=== PATIENT | male | born 1950 | race Caucasian/White ===

== ENCOUNTER 2016-07-16 06:28 | Inpatient (IN) | payer SELFPAY ==
[2016-07-16] MEDS ORDERED: Bupivacaine 0.5%/EPINEPHrine 1:200,000 50 ML MDV ONE (06:42)
[2016-07-16] MEDS ORDERED: Meropenem 500 MG SDV ONE (06:42)
[2016-07-16] MEDS ORDERED: Propofol 200 MG/20 ML SDV ONE (07:26)
[2016-07-16] MEDS ORDERED: Dexamethasone 4 MG/ML SDV ONE (07:26)
[2016-07-16] MEDS ORDERED: Neostigmine Methylsulfate 1 MG/ML 5 ML Syringe ONE (07:26)
[2016-07-16] MEDS ORDERED: Ondansetron 4 MG/2 ML SDV ONE (07:26)
[2016-07-16] MEDS ORDERED: Succinylcholine/Normal Saline 200 MG/10 ML Syringe ONE (07:26)
[2016-07-16] MEDS ORDERED: Rocuronium 50 MG/5 ML Vial ONE (07:26)
[2016-07-16] MEDS ORDERED: fentaNYL 250 MCG/5 ML SDV ONE ×2 (07:26→09:20)
[2016-07-16] MEDS ORDERED: Dextrose 5%-Lactated Ringers 1,000 ML IV SCH (07:30)
[2016-07-16] MEDS ORDERED: Clindamycin Phosphate 900 MG in Sodium Chloride 0.9% 100 ML IV ONE (07:30)
[2016-07-16] MEDS ORDERED: Naloxone 0.4 MG/ML SDV IVPUSH PRN (07:31)
[2016-07-16] MEDS ORDERED: HYDROmorphone/Normal Saline 15 MG/30 ML PCA IV PRN (07:31)
[2016-07-16] MEDS ORDERED: Naloxone 0.4 MG/ML SDV IV PRN (07:37)
[2016-07-16] MEDS ORDERED: Lactated Ringers 1,000 ML ONE (09:16)
[2016-07-16] MEDS ORDERED: Nitroglycerin 0.4 MG Tab.SL SL PRN (11:11)
[2016-07-16] MEDS: ceFAZolin 2 GM in Sodium Chloride 0.9% 50 ML IV SCH ×2 (14:28→21:41)
[2016-07-16] MEDS: busPIRone 5 MG Tab PO SCH (16:48)
[2016-07-16] MEDS: Dextrose 5%-Lactated Ringers 1,000 ML IV SCH (18:24)
[2016-07-16] MEDS: Tamsulosin 0.4 MG Cap.ER PO SCH (20:47)
[2016-07-16] MEDS: Ondansetron 4 MG/2 ML SDV IVPUSH PRN (20:50)
[2016-07-16] MEDS ORDERED: Lidocaine 2% Jelly 10 ML Urojet MUCMEM ONE (21:14)
[2016-07-17] MEDS: ceFAZolin 2 GM in Sodium Chloride 0.9% 50 ML IV SCH (05:08)
[2016-07-17] MEDS ORDERED: Tamsulosin 0.4 MG Cap.ER PO ONE (09:00)
[2016-07-17] MEDS: Dextrose 5%-Lactated Ringers 1,000 ML IV SCH ×2 (09:00→22:05)
[2016-07-17] MEDS: busPIRone 5 MG Tab PO SCH ×2 (10:17→16:33)
[2016-07-17] MEDS: Losartan 50 MG Tab PO SCH (10:18)
[2016-07-17] MEDS: fentaNYL 25 MCG/HR Transdermal Patch TRDERM SCH (10:20)
[2016-07-17] MEDS: FENTANYL PATCH CHECK TOP SCH (10:25)
[2016-07-17] MEDS: Ondansetron 4 MG/2 ML SDV IVPUSH PRN (10:56)
[2016-07-17] MEDS: Acetaminophen/oxyCODONE 325-5 MG Tab PO PRN ×3 (13:08→20:33)
--- NOTE | 2016-07-17 14:04 | PN ---
DATE OF SERVICE: 07/17/2016 The patient has been afebrile with stable vital signs. He did retain urine last night and had a Villeda catheter put in. He will have some additional Flomax today and Villeda catheter out tomorrow. Otherwise, pain control appears to be little bit marginal, add fentanyl patch. Otherwise, maximize activity and work with pulmonary toilet. Sg Youngblood MD /[id number]
[2016-07-17] MEDS: Tamsulosin 0.4 MG Cap.ER PO SCH (20:33)
[2016-07-17] MEDS ORDERED: Tamsulosin 0.4 MG Cap.ER PO SCH (21:00)
[2016-07-18] MEDS: Acetaminophen/oxyCODONE 325-5 MG Tab PO PRN ×6 (01:55→23:46)
[2016-07-18] MEDS: Dextrose 5%-Lactated Ringers 1,000 ML IV SCH (04:26)
[2016-07-18] MEDS ORDERED: Sodium Chloride 0.9% 10 ML Syringe IV PRN (07:40)
[2016-07-18] MEDS: Bisacodyl 5 MG Tab PO SCH ×2 (08:27→21:15)
[2016-07-18] MEDS: busPIRone 5 MG Tab PO SCH ×2 (08:27→16:20)
[2016-07-18] MEDS: Losartan 50 MG Tab PO SCH (08:28)
[2016-07-18] MEDS ORDERED: Magnesium Citrate Solution 296 ML Bottle PO ONE (09:00)
[2016-07-18] MEDS: FENTANYL PATCH CHECK TOP SCH (09:28)
[2016-07-18] MEDS: Tamsulosin 0.4 MG Cap.ER PO SCH (21:16)
[2016-07-19] MEDS: Acetaminophen/oxyCODONE 325-5 MG Tab PO PRN ×4 (05:21→19:34)
[2016-07-19] MEDS ORDERED: Magnesium Hydroxide 400 MG/5 ML Susp 30 ML Cup PO ONE (08:45)
[2016-07-19] MEDS: Bisacodyl 10 MG Supp RECTAL PRN ×2 (09:17→17:31)
--- NOTE | 2016-07-19 09:18 | CR ---
Upright abdomen The patient is 3 days postoperative laparoscopic hernia repair. There is moderate free air underlyin g the hemidiaphragms. There is a gaseous appearance throughout the large and small bowel. Impression: 1. Pneumoperitoneum consistent with postoperative state. 2. Evidence for possible mild ileus.
[2016-07-19] MEDS: Bacitracin Oint 28.35 GM Tube TOP SCH ×3 (09:19→21:17)
[2016-07-19] MEDS: busPIRone 5 MG Tab PO SCH ×2 (10:27→16:14)
[2016-07-19] MEDS: Bisacodyl 5 MG Tab PO SCH ×2 (10:28→21:18)
[2016-07-19] MEDS: Losartan 50 MG Tab PO SCH (10:28)
[2016-07-19] MEDS: FENTANYL PATCH CHECK TOP SCH (10:29)
--- NOTE | 2016-07-19 11:06 | PN ---
DATE OF SERVICE: 07/19/2016 SUBJECTIVE: Srinivas reports distention, inability to have a bowel movement, but he is passing a little bit of gas. He reports distention and increased amount of pain. He did retain urine, but was able to void yesterday and did have most of the bottle of magnesium citrate but still unable to have a bowel movement. REVIEW OF SYSTEMS: Remainder of review of systems negative for any pertinent positives and negatives. OBJECTIVE: GENERAL: Srinivas Lofton is a 65-year-old male. He is alert and orientated. Looks like he is not feeling well. VITAL SIGNS: TPR is 99.3, 99, 20, blood pressure 151/86. HEENT: Negative. NECK: Supple. HEART: Regular rate and rhythm. LUNGS: Clear. ABDOMEN: Distended, quite tight. He has an increased amount of pain. EXTREMITIES: Without peripheral edema. ASSESSMENT: 1. Abdominal distention, postoperatively, looks like early ileus. 2. Laparoscopy with lysis of adhesions, 70 minutes repair of recurrent incisional hernia with mesh. Removal of mesh and placement of Vicryl mesh for recurrent incarcerated incisional hernia extensive intraabdominal adhesions on 07/16/2016. PLAN: 1. Check abdominal x-ray flat and upright. 2. Bacitracin to tape fay 3 times a day. 3. Milk of magnesia 30 mL one time. 4. Dulcolax suppository b.i.d. p.r.n. Encourage walking. We will evaluate p.r.n. or in a.m. Lidia Rao PA-C /[id number]
--- NOTE | 2016-07-19 11:30 | PN ---
DATE OF SERVICE: 07/18/2016 The patient has been afebrile with stable vital signs. He had his Villeda catheter removed today, and hopefully he will be able to void today. He is also fairly distended, and we will try to get his bowels going. He is tolerating oral pain medication, in addition to the fentanyl patch. We will have him get in the shower today, and he may be ready for discharge home tomorrow. Sg Youngblood MD /[id number]
[2016-07-19] MEDS ORDERED: Dextrose 5%-Lactated Ringers 1,000 ML IV SCH (14:30)
[2016-07-19] MEDS ORDERED: Acetaminophen 1,000 MG in Premix Bag 1 BAG IV PRN (16:00)
[2016-07-19] MEDS ORDERED: Ketorolac 60 MG/2 ML SDV IM ONE (17:03)
[2016-07-19] MEDS: hydrOXYzine HCl 50 MG/ML SDV IM PRN (17:31)
[2016-07-19] MEDS: Tamsulosin 0.4 MG Cap.ER PO SCH (21:18)
[2016-07-20] MEDS: Acetaminophen/oxyCODONE 325-5 MG Tab PO PRN (03:34)
[2016-07-20] MEDS: hydrOXYzine HCl 50 MG/ML SDV IM PRN ×2 (04:27→14:41)
[2016-07-20] MEDS ORDERED: Acetaminophen 1,000 MG in Premix Bag 1 BAG IV ONE (07:18)
[2016-07-20] MEDS ORDERED: Naloxone 0.4 MG/ML SDV IV PRN ×2 (07:26→21:19)
[2016-07-20] MEDS ORDERED: HYDROmorphone/Normal Saline 15 MG/30 ML PCA IV PRN ×2 (07:30→21:17)
[2016-07-20] MEDS ORDERED: LORazepam 2 MG/ML MDV IVPUSH PRN (08:28)
[2016-07-20] MEDS ORDERED: Lactated Ringers 1,000 ML IV SCH ×3 (08:30→20:45)
--- NOTE | 2016-07-20 08:56 | CR ---
2 view abdomen Comparison: Previous day. Findings: There is decreased free air within the abdomen. There is a large amount of stool in the ri ght colon. There is mild gaseous distention of the bowel. Impression: 1. Interval decrease of pneumoperitoneum. 2. Probable postoperative ileus.
[2016-07-20] MEDS ORDERED: Levofloxacin/Dextrose 5%-Water 500 MG in Premix Bag 1 BAG IV SCH (09:00)
[2016-07-20] MEDS: Bacitracin Oint 28.35 GM Tube TOP SCH ×2 (09:20→13:58)
[2016-07-20] MEDS: Losartan 50 MG Tab PO SCH (09:21)
[2016-07-20] MEDS: busPIRone 5 MG Tab PO SCH ×2 (09:21→17:57)
[2016-07-20] MEDS: Bisacodyl 5 MG Tab PO SCH (09:22)
[2016-07-20] MEDS: fentaNYL 25 MCG/HR Transdermal Patch TRDERM SCH (09:24)
[2016-07-20] MEDS: FENTANYL PATCH CHECK TOP SCH (09:27)
[2016-07-20] MEDS ORDERED: Polyethylene Glycol 3350 Powder 119 GM Bottle PO ONE (10:00)
--- NOTE | 2016-07-20 11:19 | CR ---
Portable chest The patient is post left laparoscopic hernia repair. There is free air underlying the hemidiaphragms . On the upright view of the chest there does not appear to be significant change in the amount of f ree air compared to the upright abdomen of the previous day. There are shallow lung lungs. The heart and vascular structures are unchanged. Impression: 1. Postoperative pneumoperitoneum. 2. Markedly diminished lung volumes.
[2016-07-20] MEDS: Albuterol 0.083% 2.5 MG/3 ML Neb Soln NEB PRN ×2 (12:34→16:13)
[2016-07-20] MEDS: Acetaminophen 1,000 MG in Premix Bag 1 BAG IV SCH ×3 (13:58→22:20)
[2016-07-20] MEDS ORDERED: Diatrizoate Meglumine/Diatrizoate Sodium 37% 120 ML Bottle SCH (14:15)
[2016-07-20] MEDS ORDERED: Meperidine PF 100 MG/ML Syringe IM ONE (16:00)
[2016-07-20] MEDS ORDERED: Lactated Ringers 1,000 ML IV ONE (16:19)
[2016-07-20] MEDS ORDERED: Succinylcholine/Normal Saline 200 MG/10 ML Syringe ONE (16:43)
[2016-07-20] MEDS ORDERED: Neostigmine Methylsulfate 1 MG/ML 5 ML Syringe ONE (16:43)
[2016-07-20] MEDS ORDERED: Rocuronium 50 MG/5 ML Vial ONE ×2 (16:43→18:23)
[2016-07-20] MEDS ORDERED: Ondansetron 4 MG/2 ML SDV ONE (16:43)
[2016-07-20] MEDS ORDERED: Propofol 200 MG/20 ML SDV ONE (16:43)
[2016-07-20] MEDS ORDERED: Dexamethasone 4 MG/ML SDV ONE (16:43)
[2016-07-20] MEDS ORDERED: fentaNYL 250 MCG/5 ML SDV ONE ×2 (16:44→18:23)
[2016-07-20] MEDS ORDERED: Midazolam 1 MG/ML 2 ML SDV ONE (16:45)
[2016-07-20] MEDS ORDERED: Meropenem 500 MG SDV ONE (17:24)
[2016-07-20] MEDS ORDERED: Lactated Ringers 1,000 ML ONE ×2 (18:25→18:26)
--- NOTE | 2016-07-20 19:15 | PCM.CONS ---
H&P History of Present Illness - General Date of Service: 07/20/16 Admit Problem/Dx: Admission Diagnosis/Problem Admission Diagnosis/Problem Hernia repair Source of Information: Patient, Old records, Provider, RN notes reviewed History Limitations: Reports: No limitations - History of Present Illness Initial Comments - Free Text/Narative: This patient is a 65-year-old gentleman who I been asked to see by Dr. Youngblood for further suggestions concerning evaluation and management of fever and tachycardia. He underwent incisional hernia repair with mesh 4 days ago. He's had intermittent difficulty with severe abdominal pain. This morning was noted to have significant temperature elevation 203 as well as tachycardia and intermittent borderline blood pressures. He has been transferred to the intensive care unit and given vigorous IV fluid resuscitation. Empiric IV antibiotics have been started after blood cultures were obtained including levofloxacin and meropenem. Chest x-ray showed no obvious infiltrate, white blood cell count is within normal range but CRP is significantly elevated. Lactic acid level mildly elevated prior to fluid resuscitation, blood gases showed no evidence of significant metabolic acidosis. CT scan of the chest abdomen and pelvis was obtained which showed evidence of a marked amount of intra-abdominal air consistent with a perforation. He is been reevaluated by Dr. Youngblood and taken back to the operating room for exploratory laparotomy. Abdominal Pain Score (Numeric/FACES): 8 - Related Data Allergies/Adverse Reactions: Allergies Allergy/AdvReac Type Severity Reaction Status Date / Time Penicillins Allergy Hives Verified 07/16/16 06:46 Home Medications: Home Meds busPIRone [Buspar] 15 mg PO QAM 05/03/15 [History] Losartan Potassium [Cozaar] 50 mg PO DAILY 07/13/16 [History] Cider Vinegar [Apple Cider Vinegar] 1,000 mg PO BID 07/16/16 [History] Ergocalciferol (Vitamin D2) [Vitamin D] 400 unit PO DAILY 07/16/16 [History] [place]-3S/DHA/Epa/Fish Oil [[place]-3 Fish Oil 1,000 mg Sfgl] 1 tab PO DAILY [History] Prasterone (DHEA)/Calcium Carb [DHEA] 1 tab PO DAILY 07/16/16 [History] Turmeric Root Extract [Turmeric] 500 mg PO DAILY 07/16/16 [History] Vitamin B Complex 1 tab PO DAILY 07/16/16 [History] busPIRone [Buspar] 7.5 mg PO QPM 07/16/16 [History] Past Medical History HEENT History: Reports: Impaired vision, Other (see below) Other HEENT History: dry eyes, wears glasses Cardiovascular History: Reports: CAD, High cholesterol, Hypertension, Stents Gastrointestinal History: Reports: GERD Musculoskeletal History: Reports: Fracture Psychiatric History: Reports: Anxiety, Depression Endocrine/Metabolic History: Reports: Obesity/BMI 30+ - Infectious Disease History Infectious Disease History: Reports: Chicken pox, Measles, Mumps, Shingles - Past Surgical History HEENT Surgical History: Reports: Other (see below) Other HEENT Surgeries/Procedures: root canal Cardiovascular Surgical History: Reports: Coronary artery stent, Other (see below) Other Cardiovascular Surgeries/Procedures: October stents GI Surgical History: Reports: Colonoscopy, Hernia repair/other Social & Family History - Family History Family Medical History: Noncontributory - Tobacco Use Smoking Status *Q: Never Smoker Second Hand Smoke Exposure: No - Caffeine Use Caffeine Use: Reports: None - Recreational Drug Use Recreational Drug Use: No H&P Review of Systems - Review of Systems: Review Of Systems: See Below General: Reports: fever, chills, weakness, diaphoresis, decreased appetite HEENT: Reports: no symptoms Pulmonary: Reports: shortness of breath. Denies: wheezing, pleuritic chest pain , cough, sputum, hemoptysis Cardiovascular: Reports: dyspnea on exertion. Denies: chest pain, palpitations , orthopnea, PND, edema, lightheadedness Gastrointestinal: Reports: Abdominal pain, Decreased appetite, Distension, Flatus. Denies: Black stool, Bloody stool, Difficulty swallowing, Nausea, Vomiting Genitourinary: Reports: no symptoms Musculoskeletal: Reports: no symptoms Skin: Reports: no symptoms Psychiatric: Reports: no symptoms Neurological: Reports: no symptoms Hematologic/Lymphatic: Reports: no symptoms Immunologic: Reports: no symptoms Exam - Exam Exam: See Below - Vital Signs Vital Signs: Last Vital Signs Temp 96.8 F 07/20/16 16:00 Pulse 130 H 07/20/16 16:00 Resp 29 H 07/20/16 16:00 BP 90/69 07/20/16 16:00 Pulse Ox 92 L 07/20/16 16:00 Weight: 253 lb 4.802 oz - Exam Quality Assessment: urinary catheter, DVT prophylaxis General: alert, oriented, cooperative, severe distress HEENT: Conjunctiva clear, EOMI, Hearing intact, Nares patent, Normal nasal septum, Posterior pharynx clear, Pupils equal, Pupils reactive Neck: supple, trachea midline, +2 carotid pulse wo bruit Lungs: Clear to auscultation, Normal respiratory effort Cardiovascular: normal S1, normal S2, tachycardia. No: irregular rhythm, bradycardia, systolic murmur, diastolic murmur Abdomen: distention, guarding, rebound, tenderness, hypoactive bowel sounds Extremities: edema Skin: warm, dry, intact Neurological: cranial nerves intact, strength equal bilateral, normal speech, normal tone, sensation intact. No: focal deficit Neuro Extensive - Mental Status: alert, oriented x3, normal mood/affect, normal cognition, memory intact - Patient Data Lab Results last 24 hrs: Laboratory Results - last 24 hr 07/20/16 07/20/16 07/20/16 Range/Units 07:45 07:45 07:45 WBC 6.2 (4.5-11.0) K/uL RBC 5.26 (4.30-5.90) M/uL Hgb 15.7 H (12.0-15.0) g/dL Hct 46.0 (40.0-54.0) % MCV 88 (80-98) fL MCH 30 (27-31) pg MCHC 34 (32-36) % Plt Count 247 (150-400) K/uL Neut % (Auto) 85 H (36-66) % Lymph % (Auto) 6 L (24-44) % [place] % (Auto) 8 H (2-6) % Eos % (Auto) 0 L (2-4) % Baso % (Auto) 0 (0-1) % Puncture Site ABG pH (7.350-7.450) ABG pCO2 (35.0-42.0) mmHg ABG pO2 (75.0-100.0) mmHg ABG HCO3 (22.0-26.0) mmol/L ABG Total CO2 (23.0-27.0) mmol/L ABG O2 Saturation (95.0-98.0) % ABG O2 Content (15.0-23.0) %vol ABG Base Excess mm/L ABG Hemoglobin (13.5-18.0) g/dL ABG Oxyhemoglobin % ABG Carboxyhemoglobin (0.0-1.6) % ABG Methemoglobin % Wilber Test O2 Delivery Device Oxygen Flow Rate L Sodium 136 L (140-148) mmol/L Potassium 4.0 (3.6-5.2) mmol/L Chloride 101 (100-108) mmol/L Carbon Dioxide 27 (21-32) mmol/L Anion Gap 12.0 (5.0-14.0) mmol/L BUN 26 H D (7-18) mg/dL Creatinine 1.5 H (0.8-1.3) mg/dL Est Cr Clr Drug Dosing 52.17 mL/min Estimated GFR (MDRD) 47 L (>60) Glucose 139 H (74-106) mg/dL Lactic Acid (0.4-2.0) mmol/L Calcium 8.3 L (8.5-10.1) mg/dL Magnesium 2.1 (1.8-2.4) mg/dL Total Bilirubin 1.1 H D (0.2-1.0) mg/dL AST 33 (15-37) U/L ALT 39 (12-78) U/L Alkaline Phosphatase 28 L (46-116) U/L Troponin I < 0.017 (0.000-0.056) ng/mL C-Reactive Protein (0.0-0.3) mg/dL Total Protein 6.9 (6.4-8.2) g/dL Albumin 2.6 L (3.4-5.0) g/dL Globulin 4.3 H (2.3-3.5) g/dL Albumin/Globulin Ratio 0.6 L (1.2-2.2) Urine Color Urine Appearance Urine pH (4.5-8.0) Ur Specific [place] (1.008-1.030) Urine Protein (NEGATIVE) mg/dL Urine Glucose (UA) (NEGATIVE) mg/dL Urine Ketones (NEGATIVE) mg/dL Urine Occult Blood (NEGATIVE) Urine Nitrite (NEGAITVE) Urine Bilirubin (NEGATIVE) Urine Urobilinogen (NORMAL) mg/dL Ur Leukocyte Esterase (NEGATIVE) Urine RBC (0-5) Urine WBC (0-5) Ur Epithelial Cells Amorphous Sediment Urine Bacteria Urine Mucus 07/20/16 07/20/16 07/20/16 Range/Units 07:45 08:21 09:57 WBC (4.5-11.0) K/uL RBC (4.30-5.90) M/uL Hgb (12.0-15.0) g/dL Hct (40.0-54.0) % MCV (80-98) fL MCH (27-31) pg MCHC (32-36) % Plt Count (150-400) K/uL Neut % (Auto) (36-66) % Lymph % (Auto) (24-44) % [place] % (Auto) (2-6) % Eos % (Auto) (2-4) % Baso % (Auto) (0-1) % Puncture Site Lt radial ABG pH 7.432 (7.350-7.450) ABG pCO2 37.0 (35.0-42.0) mmHg ABG pO2 75.7 (75.0-100.0) mmHg ABG HCO3 24.2 (22.0-26.0) mmol/L ABG Total CO2 20.6 L (23.0-27.0) mmol/L ABG O2 Saturation 95.2 (95.0-98.0) % ABG O2 Content 21.0 (15.0-23.0) %vol ABG Base Excess 0.8 mm/L ABG Hemoglobin 16.0 (13.5-18.0) g/dL ABG Oxyhemoglobin 93.5 % ABG Carboxyhemoglobin 1.3 (0.0-1.6) % ABG Methemoglobin 0.5 % Wilber Test Passed O2 Delivery Device Nasal cannula Oxygen Flow Rate 3 L Sodium (140-148) mmol/L Potassium (3.6-5.2) mmol/L Chloride (100-108) mmol/L Carbon Dioxide (21-32) mmol/L Anion Gap (5.0-14.0) mmol/L BUN (7-18) mg/dL Creatinine (0.8-1.3) mg/dL Est Cr Clr Drug Dosing mL/min Estimated GFR (MDRD) (>60) Glucose (74-106) mg/dL Lactic Acid 3.5 H (0.4-2.0) mmol/L Calcium (8.5-10.1) mg/dL Magnesium (1.8-2.4) mg/dL Total Bilirubin (0.2-1.0) mg/dL AST (15-37) U/L ALT (12-78) U/L Alkaline Phosphatase (46-116) U/L Troponin I (0.000-0.056) ng/mL C-Reactive Protein 27.59 H (0.0-0.3) mg/dL Total Protein (6.4-8.2) g/dL Albumin (3.4-5.0) g/dL Globulin (2.3-3.5) g/dL Albumin/Globulin Ratio (1.2-2.2) Urine Color Urine Appearance Urine pH (4.5-8.0) Ur Specific [place] (1.008-1.030) Urine Protein (NEGATIVE) mg/dL Urine Glucose (UA) (NEGATIVE) mg/dL Urine Ketones (NEGATIVE) mg/dL Urine Occult Blood (NEGATIVE) Urine Nitrite (NEGAITVE) Urine Bilirubin (NEGATIVE) Urine Urobilinogen (NORMAL) mg/dL Ur Leukocyte Esterase (NEGATIVE) Urine RBC (0-5) Urine WBC (0-5) Ur Epithelial Cells Amorphous Sediment Urine Bacteria Urine Mucus 07/20/16 Range/Units 14:14 WBC (4.5-11.0) K/uL RBC (4.30-5.90) M/uL Hgb (12.0-15.0) g/dL Hct (40.0-54.0) % MCV (80-98) fL MCH (27-31) pg MCHC (32-36) % Plt Count (150-400) K/uL Neut % (Auto) (36-66) % Lymph % (Auto) (24-44) % [place] % (Auto) (2-6) % Eos % (Auto) (2-4) % Baso % (Auto) (0-1) % Puncture Site ABG pH (7.350-7.450) ABG pCO2 (35.0-42.0) mmHg ABG pO2 (75.0-100.0) mmHg ABG HCO3 (22.0-26.0) mmol/L ABG Total CO2 (23.0-27.0) mmol/L ABG O2 Saturation (95.0-98.0) % ABG O2 Content (15.0-23.0) %vol ABG Base Excess mm/L ABG Hemoglobin (13.5-18.0) g/dL ABG Oxyhemoglobin % ABG Carboxyhemoglobin (0.0-1.6) % ABG Methemoglobin % Wilber Test O2 Delivery Device Oxygen Flow Rate L Sodium (140-148) mmol/L Potassium (3.6-5.2) mmol/L Chloride (100-108) mmol/L Carbon Dioxide (21-32) mmol/L Anion Gap (5.0-14.0) mmol/L BUN (7-18) mg/dL Creatinine (0.8-1.3) mg/dL Est Cr Clr Drug Dosing mL/min Estimated GFR (MDRD) (>60) Glucose (74-106) mg/dL Lactic Acid (0.4-2.0) mmol/L Calcium (8.5-10.1) mg/dL Magnesium (1.8-2.4) mg/dL Total Bilirubin (0.2-1.0) mg/dL AST (15-37) U/L ALT (12-78) U/L Alkaline Phosphatase (46-116) U/L Troponin I (0.000-0.056) ng/mL C-Reactive Protein (0.0-0.3) mg/dL Total Protein (6.4-8.2) g/dL Albumin (3.4-5.0) g/dL Globulin (2.3-3.5) g/dL Albumin/Globulin Ratio (1.2-2.2) Urine Color Yellow Urine Appearance Slightly cloudy Urine pH 5.0 (4.5-8.0) Ur Specific [place] 1.015 (1.008-1.030) Urine Protein Trace (NEGATIVE) mg/dL Urine Glucose (UA) Normal (NEGATIVE) mg/dL Urine Ketones Negative (NEGATIVE) mg/dL Urine Occult Blood Trace (NEGATIVE) Urine Nitrite Negative (NEGAITVE) Urine Bilirubin Small (NEGATIVE) Urine Urobilinogen Normal (NORMAL) mg/dL Ur Leukocyte Esterase Negative (NEGATIVE) Urine RBC 0-5 (0-5) Urine WBC 0-5 (0-5) Ur Epithelial Cells Rare Amorphous Sediment Moderate Urine Bacteria Rare Urine Mucus Moderate Result Diagrams: 07/20/16 07:45 07/20/16 07:45 Boby Results last 24 hrs: Microbiology 07/20/16 18:22 Gram Stain - Final Peritoneal Fluid Consult PN Assessment/Plan Procedures: Procedures ASSAY OF TROPONIN QUANT (08/25/13) CARDIOVASCULAR STRESS TEST (11/07/14) CHEST X-RAY 1 VIEW FRONTAL (08/25/13) COMPLETE CBC W/AUTO DIFF WBC (08/25/13) COMPREHEN METABOLIC PANEL (08/25/13) ELECTROCARDIOGRAM REPORT (08/25/13) ELECTROCARDIOGRAM TRACING (08/25/13) EMERGENCY DEPT VISIT (08/25/13) EMERGENCY DEPT VISIT (08/25/13) HT MUSCLE IMAGE SPECT MULT (11/07/14) INITIAL OBSERVATION CARE (08/25/13) METABOLIC PANEL TOTAL CA (08/25/13) OBSERVATION CARE DISCHARGE (08/25/13) ROUTINE VENIPUNCTURE (08/25/13) THER/PROPH/DIAG INJ IV PUSH (08/25/13) TX/PRO/DX INJ NEW DRUG ADDON (08/25/13) Problem List Initiated/Reviewed/Updated: Yes My Orders last 24 hours: My Active Orders 07/20/16 08:23 EKG 12 Lead [EK] Stat 07/20/16 11:30 Chest Abdomen Pelvis wo Cont [CT] Stat 07/20/16 11:32 RT Aerosol Therapy [RC] ASDIRECTED Albuterol [Proventil Neb Soln] 2.5 mg NEB Q4H PRN 07/20/16 12:00 Meropenem [Merrem] 1 gm Sodium Chloride 0.9% [Normal Saline] 50 ml IV Q8H 07/20/16 15:42 Urinary Catheter Assessment [RC] ASDIRECTED 07/20/16 15:45 Insert Villeda Catheter [Insert Urinary Catheter] [OM.PC] Q24H Plan: ASSESSMENT AND RECOMMENDATIONS SEPSIS SECONDARY TO INTESTINAL PERFORATION-he is been taken back to the operating room by Dr. Youngblood for exploratory laparotomy -Postoperative care per Dr. Youngblood -Blood cultures are pending -Empiric IV antibiotics with meropenem and levofloxacin STATUS POST ABDOMINAL WALL HERNIA REPAIR CORONARY ARTERY DISEASE-no symptoms of chest pain or pressure, EKG showed no acute ST segment changes in troponin level is within normal range Requesting Provider: NINA Date Consult Requested: 07/20/16 Reason for Consult: Fever, tachycardia Patient History Reviewed: Yes Notified Requestor: Yes
[2016-07-20] MEDS ORDERED: Naloxone 0.4 MG/ML SDV ONE (20:00)
[2016-07-20] MEDS ORDERED: Heparin Sodium 5,000 Units/ML Vial ONE (20:53)
[2016-07-20] MEDS ORDERED: Ondansetron 4 MG/2 ML SDV IVPUSH PRN (20:56)
[2016-07-20] MEDS: Dextrose 5%-Lactated Ringers 1,000 ML IV SCH (21:07)
[2016-07-20] MEDS ORDERED: Nitroglycerin 0.4 MG Tab.SL SL PRN (21:10)
[2016-07-20] MEDS ORDERED: fentaNYL 25 MCG/HR Transdermal Patch TRDERM SCH (22:00)
[2016-07-20] MEDS ORDERED: FENTANYL PATCH CHECK TOP SCH (22:00)
[2016-07-20] MEDS: Pantoprazole 40 MG Vial IV SCH (22:17)
[2016-07-20] MEDS: Albuterol/Ipratropium 3.0-0.5 MG/3 ML Neb Soln INH SCH (22:17)
[2016-07-20] MEDS: Meropenem 500 MG in Sodium Chloride 0.9% 50 ML IV SCH (22:18)
[2016-07-21] MEDS: Acetaminophen 1,000 MG in Premix Bag 1 BAG IV SCH ×3 (03:38→17:12)
[2016-07-21] MEDS: Meropenem 500 MG in Sodium Chloride 0.9% 50 ML IV SCH ×3 (05:06→21:01)
[2016-07-21] MEDS ORDERED: Albuterol/Ipratropium 3.0-0.5 MG/3 ML Neb Soln INH PRN (07:24)
[2016-07-21] MEDS: Albuterol/Ipratropium 3.0-0.5 MG/3 ML Neb Soln INH SCH ×4 (07:30→20:12)
[2016-07-21] MEDS: Dextrose 5%-Lactated Ringers 1,000 ML IV SCH ×2 (07:44→18:31)
--- NOTE | 2016-07-21 08:01 | PCM.CONSN ---
- General Info Date of Service: 07/21/16 - Review of Systems General: Reports: weakness. Denies: fever, chills Pulmonary: Reports: no symptoms Cardiovascular: Reports: no symptoms Gastrointestinal: Reports: Abdominal pain. Denies: Flatus, Nausea, Vomiting Systems Review Comment:: This patient has done well since surgery last night, oxygenation has been adequate and he has remained hemodynamically stable with no further significant temperature elevations. The time of surgery was found to have a small bowel perforation as well as a large dilated colon. He underwent partial small bowel resection and resection of a large amount of his colon. - Patient Data Vitals - most recent: Last Vital Signs Temp 97.0 F 07/21/16 07:00 Pulse 105 H 07/21/16 07:52 Resp 14 07/21/16 07:52 BP 112/69 07/21/16 07:52 Pulse Ox 93 L 07/21/16 07:52 Weight - most recent: 253 lb 4.802 oz I&O - last 24 hours: Intake & Output 07/20/16 07/21/16 07/21/16 22:59 06:59 14:59 Intake Total 2885 Output Total 660 571 100 Balance -660 2314 -100 Lab Results last 24 hrs: Laboratory Results - last 24 hr 07/20/16 07/20/16 07/20/16 Range/Units 07:45 07:45 07:45 WBC 6.2 (4.5-11.0) K/uL RBC 5.26 (4.30-5.90) M/uL Hgb 15.7 H (12.0-15.0) g/dL Hct 46.0 (40.0-54.0) % MCV 88 (80-98) fL MCH 30 (27-31) pg MCHC 34 (32-36) % Plt Count 247 (150-400) K/uL Neut % (Auto) 85 H (36-66) % Lymph % (Auto) 6 L (24-44) % [place] % (Auto) 8 H (2-6) % Eos % (Auto) 0 L (2-4) % Baso % (Auto) 0 (0-1) % Puncture Site ABG pH (7.350-7.450) ABG pCO2 (35.0-42.0) mmHg ABG pO2 (75.0-100.0) mmHg ABG HCO3 (22.0-26.0) mmol/L ABG Total CO2 (23.0-27.0) mmol/L ABG O2 Saturation (95.0-98.0) % ABG O2 Content (15.0-23.0) %vol ABG Base Excess mm/L ABG Hemoglobin (13.5-18.0) g/dL ABG Oxyhemoglobin % ABG Carboxyhemoglobin (0.0-1.6) % ABG Methemoglobin % Wilber Test O2 Delivery Device Oxygen Flow Rate L Sodium 136 L (140-148) mmol/L Potassium 4.0 (3.6-5.2) mmol/L Chloride 101 (100-108) mmol/L Carbon Dioxide 27 (21-32) mmol/L Anion Gap 12.0 (5.0-14.0) mmol/L BUN 26 H D (7-18) mg/dL Creatinine 1.5 H (0.8-1.3) mg/dL Est Cr Clr Drug Dosing 52.17 mL/min Estimated GFR (MDRD) 47 L (>60) Glucose 139 H (74-106) mg/dL Lactic Acid (0.4-2.0) mmol/L Calcium 8.3 L (8.5-10.1) mg/dL Phosphorus (2.5-4.9) mg/dL Magnesium 2.1 (1.8-2.4) mg/dL Total Bilirubin 1.1 H D (0.2-1.0) mg/dL AST 33 (15-37) U/L ALT 39 (12-78) U/L Alkaline Phosphatase 28 L (46-116) U/L Troponin I < 0.017 (0.000-0.056) ng/mL C-Reactive Protein (0.0-0.3) mg/dL Total Protein 6.9 (6.4-8.2) g/dL Albumin 2.6 L (3.4-5.0) g/dL Globulin 4.3 H (2.3-3.5) g/dL Albumin/Globulin Ratio 0.6 L (1.2-2.2) Urine Color Urine Appearance Urine pH (4.5-8.0) Ur Specific Moody (1.008-1.030) Urine Protein (NEGATIVE) mg/dL Urine Glucose (UA) (NEGATIVE) mg/dL Urine Ketones (NEGATIVE) mg/dL Urine Occult Blood (NEGATIVE) Urine Nitrite (NEGAITVE) Urine Bilirubin (NEGATIVE) Urine Urobilinogen (NORMAL) mg/dL Ur Leukocyte Esterase (NEGATIVE) Urine RBC (0-5) Urine WBC (0-5) Ur Epithelial Cells Amorphous Sediment Urine Bacteria Urine Mucus 07/20/16 07/20/16 07/20/16 Range/Units 07:45 08:21 09:57 WBC (4.5-11.0) K/uL RBC (4.30-5.90) M/uL Hgb (12.0-15.0) g/dL Hct (40.0-54.0) % MCV (80-98) fL MCH (27-31) pg MCHC (32-36) % Plt Count (150-400) K/uL Neut % (Auto) (36-66) % Lymph % (Auto) (24-44) % [place] % (Auto) (2-6) % Eos % (Auto) (2-4) % Baso % (Auto) (0-1) % Puncture Site Lt radial ABG pH 7.432 (7.350-7.450) ABG pCO2 37.0 (35.0-42.0) mmHg ABG pO2 75.7 (75.0-100.0) mmHg ABG HCO3 24.2 (22.0-26.0) mmol/L ABG Total CO2 20.6 L (23.0-27.0) mmol/L ABG O2 Saturation 95.2 (95.0-98.0) % ABG O2 Content 21.0 (15.0-23.0) %vol ABG Base Excess 0.8 mm/L ABG Hemoglobin 16.0 (13.5-18.0) g/dL ABG Oxyhemoglobin 93.5 % ABG Carboxyhemoglobin 1.3 (0.0-1.6) % ABG Methemoglobin 0.5 % Wilber Test Passed O2 Delivery Device Nasal cannula Oxygen Flow Rate 3 L Sodium (140-148) mmol/L Potassium (3.6-5.2) mmol/L Chloride (100-108) mmol/L Carbon Dioxide (21-32) mmol/L Anion Gap (5.0-14.0) mmol/L BUN (7-18) mg/dL Creatinine (0.8-1.3) mg/dL Est Cr Clr Drug Dosing mL/min Estimated GFR (MDRD) (>60) Glucose (74-106) mg/dL Lactic Acid 3.5 H (0.4-2.0) mmol/L Calcium (8.5-10.1) mg/dL Phosphorus (2.5-4.9) mg/dL Magnesium (1.8-2.4) mg/dL Total Bilirubin (0.2-1.0) mg/dL AST (15-37) U/L ALT (12-78) U/L Alkaline Phosphatase (46-116) U/L Troponin I (0.000-0.056) ng/mL C-Reactive Protein 27.59 H (0.0-0.3) mg/dL Total Protein (6.4-8.2) g/dL Albumin (3.4-5.0) g/dL Globulin (2.3-3.5) g/dL Albumin/Globulin Ratio (1.2-2.2) Urine Color Urine Appearance Urine pH (4.5-8.0) Ur Specific Moody (1.008-1.030) Urine Protein (NEGATIVE) mg/dL Urine Glucose (UA) (NEGATIVE) mg/dL Urine Ketones (NEGATIVE) mg/dL Urine Occult Blood (NEGATIVE) Urine Nitrite (NEGAITVE) Urine Bilirubin (NEGATIVE) Urine Urobilinogen (NORMAL) mg/dL Ur Leukocyte Esterase (NEGATIVE) Urine RBC (0-5) Urine WBC (0-5) Ur Epithelial Cells Amorphous Sediment Urine Bacteria Urine Mucus 07/20/16 07/21/16 07/21/16 Range/Units 14:14 04:00 04:00 WBC 9.3 (4.5-11.0) K/uL RBC 4.85 (4.30-5.90) M/uL Hgb 14.3 (12.0-15.0) g/dL Hct 43.8 (40.0-54.0) % MCV 90 (80-98) fL MCH 30 (27-31) pg MCHC 33 (32-36) % Plt Count 224 (150-400) K/uL Neut % (Auto) (36-66) % Lymph % (Auto) (24-44) % [place] % (Auto) (2-6) % Eos % (Auto) (2-4) % Baso % (Auto) (0-1) % Puncture Site ABG pH (7.350-7.450) ABG pCO2 (35.0-42.0) mmHg ABG pO2 (75.0-100.0) mmHg ABG HCO3 (22.0-26.0) mmol/L ABG Total CO2 (23.0-27.0) mmol/L ABG O2 Saturation (95.0-98.0) % ABG O2 Content (15.0-23.0) %vol ABG Base Excess mm/L ABG Hemoglobin (13.5-18.0) g/dL ABG Oxyhemoglobin % ABG Carboxyhemoglobin (0.0-1.6) % ABG Methemoglobin % Wilber Test O2 Delivery Device Oxygen Flow Rate L Sodium 139 L (140-148) mmol/L Potassium 5.1 (3.6-5.2) mmol/L Chloride 104 (100-108) mmol/L Carbon Dioxide 27 (21-32) mmol/L Anion Gap 13.1 (5.0-14.0) mmol/L BUN 36 H (7-18) mg/dL Creatinine 2.2 H (0.8-1.3) mg/dL Est Cr Clr Drug Dosing 35.57 mL/min Estimated GFR (MDRD) 30 L (>60) Glucose 139 H (74-106) mg/dL Lactic Acid (0.4-2.0) mmol/L Calcium 7.4 L (8.5-10.1) mg/dL Phosphorus 6.6 H (2.5-4.9) mg/dL Magnesium 2.2 (1.8-2.4) mg/dL Total Bilirubin 0.5 D (0.2-1.0) mg/dL AST 76 H D (15-37) U/L ALT 49 (12-78) U/L Alkaline Phosphatase 12 L (46-116) U/L Troponin I (0.000-0.056) ng/mL C-Reactive Protein (0.0-0.3) mg/dL Total Protein 5.0 L (6.4-8.2) g/dL Albumin 1.7 L (3.4-5.0) g/dL Globulin 3.3 (2.3-3.5) g/dL Albumin/Globulin Ratio 0.5 L (1.2-2.2) Urine Color Yellow Urine Appearance Slightly cloudy Urine pH 5.0 (4.5-8.0) Ur Specific Moody 1.015 (1.008-1.030) Urine Protein Trace (NEGATIVE) mg/dL Urine Glucose (UA) Normal (NEGATIVE) mg/dL Urine Ketones Negative (NEGATIVE) mg/dL Urine Occult Blood Trace (NEGATIVE) Urine Nitrite Negative (NEGAITVE) Urine Bilirubin Small (NEGATIVE) Urine Urobilinogen Normal (NORMAL) mg/dL Ur Leukocyte Esterase Negative (NEGATIVE) Urine RBC 0-5 (0-5) Urine WBC 0-5 (0-5) Ur Epithelial Cells Rare Amorphous Sediment Moderate Urine Bacteria Rare Urine Mucus Moderate 07/21/16 Range/Units 04:00 WBC (4.5-11.0) K/uL RBC (4.30-5.90) M/uL Hgb (12.0-15.0) g/dL Hct (40.0-54.0) % MCV (80-98) fL MCH (27-31) pg MCHC (32-36) % Plt Count (150-400) K/uL Neut % (Auto) (36-66) % Lymph % (Auto) (24-44) % [place] % (Auto) (2-6) % Eos % (Auto) (2-4) % Baso % (Auto) (0-1) % Puncture Site ABG pH (7.350-7.450) ABG pCO2 (35.0-42.0) mmHg ABG pO2 (75.0-100.0) mmHg ABG HCO3 (22.0-26.0) mmol/L ABG Total CO2 (23.0-27.0) mmol/L ABG O2 Saturation (95.0-98.0) % ABG O2 Content (15.0-23.0) %vol ABG Base Excess mm/L ABG Hemoglobin (13.5-18.0) g/dL ABG Oxyhemoglobin % ABG Carboxyhemoglobin (0.0-1.6) % ABG Methemoglobin % Wilber Test O2 Delivery Device Oxygen Flow Rate L Sodium (140-148) mmol/L Potassium (3.6-5.2) mmol/L Chloride (100-108) mmol/L Carbon Dioxide (21-32) mmol/L Anion Gap (5.0-14.0) mmol/L BUN (7-18) mg/dL Creatinine (0.8-1.3) mg/dL Est Cr Clr Drug Dosing mL/min Estimated GFR (MDRD) (>60) Glucose (74-106) mg/dL Lactic Acid 3.1 H (0.4-2.0) mmol/L Calcium (8.5-10.1) mg/dL Phosphorus (2.5-4.9) mg/dL Magnesium (1.8-2.4) mg/dL Total Bilirubin (0.2-1.0) mg/dL AST (15-37) U/L ALT (12-78) U/L Alkaline Phosphatase (46-116) U/L Troponin I (0.000-0.056) ng/mL C-Reactive Protein (0.0-0.3) mg/dL Total Protein (6.4-8.2) g/dL Albumin (3.4-5.0) g/dL Globulin (2.3-3.5) g/dL Albumin/Globulin Ratio (1.2-2.2) Urine Color Urine Appearance Urine pH (4.5-8.0) Ur Specific Moody (1.008-1.030) Urine Protein (NEGATIVE) mg/dL Urine Glucose (UA) (NEGATIVE) mg/dL Urine Ketones (NEGATIVE) mg/dL Urine Occult Blood (NEGATIVE) Urine Nitrite (NEGAITVE) Urine Bilirubin (NEGATIVE) Urine Urobilinogen (NORMAL) mg/dL Ur Leukocyte Esterase (NEGATIVE) Urine RBC (0-5) Urine WBC (0-5) Ur Epithelial Cells Amorphous Sediment Urine Bacteria Urine Mucus Boby Results last 24 hrs: Microbiology 07/20/16 07:45 Aerobic Blood Culture - Preliminary Blood - Venous - Lab Draw NO GROWTH AFTER 1 DAY Anaerobic Blood Culture - Preliminary NO GROWTH AFTER 1 DAY 07/20/16 07:40 Aerobic Blood Culture - Preliminary Blood - Arm, Left NO GROWTH AFTER 1 DAY Anaerobic Blood Culture - Preliminary NO GROWTH AFTER 1 DAY 07/20/16 18:22 Gram Stain - Final Peritoneal Fluid Med Orders - Current: Current Medications Albuterol/Ipratropium (Duoneb 3.0-0.5 Mg/3 Ml) 3 ml INH QIDRT [facility] Last Admin: 07/21/16 07:30 Dose: 3 ml Albuterol/Ipratropium (Duoneb 3.0-0.5 Mg/3 Ml) 3 ml INH ASDIRECTED PRN PRN Reason: * Fentanyl (Duragesic) 25 mcg TRDERM Q72H [facility] Hydromorphone HCl (Dilaudid Bookkeeper 15 Mg In Ns 30 Ml) 0 mg IV ASDIRECTED PRN; Protocol PRN Reason: PAIN Last Admin: 07/21/16 07:19 Dose: 15 mg Hydroxyzine HCl (Vistaril) 100 mg IM Q4H PRN PRN Reason: PAIN Dextrose/Lactated Ringer's (Dextrose 5%-Lactated Ringers) 1,000 mls @ 100 mls/ hr IV ASDIRECTED [facility] Last Admin: 07/21/16 07:44 Dose: 100 mls/hr Lactated Ringer's (Ringers, Lactated) 1,000 mls @ 100 mls/hr IV ASDIRECTED [facility] Stop: 07/21/16 17:59 Last Admin: 07/21/16 07:22 Dose: 100 mls/hr Meropenem 500 mg/ Sodium (Chloride) 50 mls @ 100 mls/hr IV Q8H [facility] Last Admin: 07/21/16 05:06 Dose: 100 mls/hr Acetaminophen 1,000 mg/ Premix 100 mls @ 400 mls/hr IV Q6H [facility] Stop: 07/21/16 16:14 Last Admin: 07/21/16 03:38 Dose: 400 mls/hr Aztreonam/Dextrose 1 gm/ (Premix) 50 mls @ 100 mls/hr IV Q8HR [facility] Lactated Ringer's (Ringers, Lactated) 1,000 mls @ 40 mls/hr IV ASDIRECTED [facility] Naloxone HCl (Narcan) 0.1 mg IV ASDIRECTED PRN PRN Reason: decreased respiratory rate Nitroglycerin (Nitrostat) 0.4 mg SL Q5M PRN PRN Reason: CHEST PAIN Verify Fentanyl (Patch) 0 each TOP BID [facility] Ondansetron HCl (Zofran) 4 mg IVPUSH Q4H PRN PRN Reason: NAUSEA Pantoprazole Sodium (Protonix Iv) 40 mg IV Q24H [facility] Last Admin: 07/20/16 22:17 Dose: 40 mg Discontinued Medications Albuterol (Proventil Neb Soln) 2.5 mg NEB Q4H PRN PRN Reason: Dyspnea Last Admin: 07/20/16 16:13 Dose: 2.5 mg Bacitracin (Bacitracin Oint) 0 gm TOP TID [facility] Last Admin: 07/20/16 13:58 Dose: 1 applic Bisacodyl (Dulcolax) 10 mg PO BID [facility] Last Admin: 07/20/16 09:22 Dose: 10 mg Bisacodyl (Dulcolax) 10 mg RECTAL BID PRN PRN Reason: Constipation Last Admin: 07/19/16 17:31 Dose: 10 mg Bupivacaine HCl/Epinephrine Bitart (Marcaine 0.5%/Epinephrine 1:200,000) Confirm Administered Dose 50 ml .ROUTE .STK-MED ONE Stop: 07/16/16 06:43 Last Admin: 07/16/16 07:28 Dose: 10 ml Buspirone HCl (Buspar) 15 mg PO DAILY [facility] Last Admin: 07/20/16 09:21 Dose: 15 mg Buspirone HCl (Buspar) 7.5 mg PO QPM [facility] Last Admin: 07/20/16 17:57 Dose: Not Given Dexamethasone (Dexamethasone) Confirm Administered Dose 4 mg .ROUTE .STK-MED ONE Stop: 07/16/16 07:27 Dexamethasone (Dexamethasone) Confirm Administered Dose 4 mg .ROUTE .STK-MED ONE Stop: 07/20/16 16:44 Diatrizoate Meglum/Diatrizoate Sod (Gastrografin 37%) 1,200 ml .XX . DIRECTED [facility] Stop: 07/20/16 14:16 Last Admin: 07/20/16 15:27 Dose: 1,200 ml Fentanyl (Sublimaze) Confirm Administered Dose 500 mcg .ROUTE .STK-MED ONE Stop: 07/16/16 07:27 Fentanyl (Sublimaze) Confirm Administered Dose 250 mcg .ROUTE .STK-MED ONE Stop: 07/16/16 09:21 Fentanyl (Duragesic) 25 mcg TRDERM Q72H [facility] Last Admin: 07/20/16 09:24 Dose: 25 mcg Fentanyl (Sublimaze) Confirm Administered Dose 250 mcg .ROUTE .STK-MED ONE Stop: 07/20/16 16:45 Fentanyl (Sublimaze) Confirm Administered Dose 250 mcg .ROUTE .STK-MED ONE Stop: 07/20/16 18:24 Fentanyl (Duragesic) 25 mcg TRDERM Q72H [facility] Last Admin: 07/20/16 22:18 Dose: Not Given Glycopyrrolate () Confirm Administered Dose 1 mg .ROUTE .STK-MED ONE Stop: 07/16/16 07:27 Glycopyrrolate () Confirm Administered Dose 1 mg .ROUTE .STK-MED ONE Stop: 07/20/16 16:44 Heparin Sodium (Porcine) (Heparin Lock Flush 100 Units/Ml Syringe) Confirm Administered Dose 500 units .ROUTE .STK-MED ONE Stop: 07/20/16 17:25 Last Admin: 07/20/16 17:28 Dose: 500 units Heparin Sodium (Porcine) (Heparin Sodium) Confirm Administered Dose 5,000 units .ROUTE .STK-MED ONE Stop: 07/20/16 20:54 Last Admin: 07/20/16 21:06 Dose: 5,000 units Hydromorphone HCl (Dilaudid Bookkeeper 15 Mg In Ns 30 Ml) 0 mg IV ASDIRECTED PRN; Protocol PRN Reason: Pain Last Admin: 07/16/16 07:37 Dose: 0.3 mg Hydromorphone HCl (Dilaudid Bookkeeper 15 Mg In Ns 30 Ml) 0 mg IV ASDIRECTED PRN; Protocol PRN Reason: PAIN Last Admin: 07/20/16 07:38 Dose: 15 mg Hydroxyzine HCl (Vistaril) 100 mg IM Q4H PRN PRN Reason: Pain Last Admin: 07/20/16 14:41 Dose: 100 mg Clindamycin Phosphate 900 mg/ (Sodium Chloride) 106 mls @ 212 mls/hr IV ONETIME ONE Stop: 07/16/16 07:59 Last Admin: 07/16/16 07:48 Dose: 212 mls/hr Dextrose/Lactated Ringer's (Dextrose 5%-Lactated Ringers) 1,000 mls @ 100 mls/ hr IV ASDIRECTED RUMA Last Admin: 07/16/16 07:37 Dose: 100 mls/hr Lactated Ringer's (Ringers, Lactated) Confirm Administered Dose 1,000 mls @ as directed .ROUTE .STK-MED ONE Stop: 07/16/16 09:17 Dextrose/Lactated Ringer's (Dextrose 5%-Lactated Ringers) 1,000 mls @ 150 mls/ hr IV ASDIRECTED [facility] Last Admin: 07/18/16 04:26 Dose: 150 mls/hr Cefazolin Sodium 2 gm/ Sodium (Chloride) 50 mls @ 100 mls/hr IV Q8H [facility] Stop: 07/17/16 06:29 Last Admin: 07/17/16 05:08 Dose: 100 mls/hr Dextrose/Lactated Ringer's (Dextrose 5%-Lactated Ringers) 1,000 mls @ 100 mls/ hr IV ASDIRECTED [facility] Last Admin: 07/19/16 14:53 Dose: 100 mls/hr Acetaminophen 1,000 mg/ Premix 100 mls @ 400 mls/hr IV Q6H PRN PRN Reason: PAIN Stop: 07/20/16 10:30 Acetaminophen 1,000 mg/ Premix 100 mls @ 400 mls/hr IV NOW ONE Stop: 07/20/16 07:32 Last Admin: 07/20/16 07:31 Dose: 400 mls/hr Lactated Ringer's (Ringers, Lactated) 1,000 mls @ 1,000 mls/hr IV ASDIRECTED [facility] Stop: 07/20/16 09:31 Last Admin: 07/20/16 09:10 Dose: 1,000 mls/hr Levofloxacin/Dextrose 500 mg/ (Premix) 100 mls @ 100 mls/hr IV Q24H [facility] Last Admin: 07/20/16 09:22 Dose: 100 mls/hr Acetaminophen 1,000 mg/ Premix 100 mls @ 400 mls/hr IV Q6H [facility] Last Admin: 07/20/16 22:20 Dose: 400 mls/hr Lactated Ringer's (Ringers, Lactated) 1,000 mls @ 250 mls/hr IV ASDIRECTED [facility] Stop: 07/20/16 14:01 Last Admin: 07/20/16 11:04 Dose: 250 mls/hr Meropenem 1 gm/ Sodium (Chloride) 50 mls @ 100 mls/hr IV Q8H [facility] Last Admin: 07/20/16 11:41 Dose: 100 mls/hr Lactated Ringer's (Ringers, Lactated) 1,000 mls @ 999 mls/hr IV BOLUS ONE Stop: 07/20/16 17:19 Last Admin: 07/20/16 21:10 Dose: 999 mls/hr Lactated Ringer's (Ringers, Lactated) Confirm Administered Dose 1,000 mls @ as directed .ROUTE .STK-MED ONE Stop: 07/20/16 18:26 Lactated Ringer's (Ringers, Lactated) Confirm Administered Dose 1,000 mls @ as directed .ROUTE .STK-MED ONE Stop: 07/20/16 18:27 Aztreonam 1 gm/ Sodium (Chloride) 50 mls @ 100 mls/hr IV Q8HR [facility] Last Admin: 07/21/16 05:06 Dose: 100 mls/hr Ketorolac Tromethamine (Toradol) 60 mg IM ONETIME ONE Stop: 07/19/16 17:04 Last Admin: 07/19/16 17:30 Dose: 60 mg Lidocaine HCl (Xylocaine 2% Jelly) 10 ml MUCMEM ONETIME ONE Stop: 07/16/16 21:15 Last Admin: 07/16/16 21:41 Dose: 10 ml Lorazepam (Ativan) 0.5 - 1 mg IVPUSH Q4H PRN PRN Reason: Anxiety Losartan Potassium (Cozaar) 50 mg PO DAILY [facility] Last Admin: 07/20/16 09:21 Dose: 50 mg Magnesium Citrate (Citrate Of Magnesia) 296 ml PO ONETIME ONE Stop: 07/18/16 09:01 Last Admin: 07/18/16 10:55 Dose: 296 ml Magnesium Hydroxide (Milk Of Magnesia) 30 ml PO ONETIME ONE Stop: 07/19/16 08:46 Last Admin: 07/19/16 10:27 Dose: 30 ml Meperidine HCl (Demerol) 100 mg IM ONETIME ONE Stop: 07/20/16 16:01 Last Admin: 07/20/16 16:05 Dose: 100 mg Meropenem (Merrem) Confirm Administered Dose 500 mg .ROUTE .STK-MED ONE Stop: 07/16/16 06:43 Last Admin: 07/16/16 09:25 Dose: 500 mg Meropenem (Merrem) Confirm Administered Dose 2,000 mg .ROUTE .STK-MED ONE Stop: 07/20/16 17:25 Last Admin: 07/20/16 17:25 Dose: 2,000 mg Midazolam HCl (Versed 1 Mg/Ml) Confirm Administered Dose 2 mg .ROUTE .STK-MED ONE Stop: 07/20/16 16:46 Naloxone HCl (Narcan) 0.1 mg IV ASDIRECTED PRN PRN Reason: decreased respiratory rate Naloxone HCl (Narcan) 0.1 mg IV ASDIRECTED PRN PRN Reason: decreased respiratory rate Naloxone HCl (Narcan) Confirm Administered Dose 0.4 mg .ROUTE .STK-MED ONE Stop: 07/20/16 20:01 Neostigmine Methylsulfate (Neostigmine) Confirm Administered Dose 5 mg .ROUTE .STK-MED ONE Stop: 07/16/16 07:27 Neostigmine Methylsulfate (Neostigmine) Confirm Administered Dose 5 mg .ROUTE .STK-MED ONE Stop: 07/20/16 16:44 Nitroglycerin (Nitrostat) 0.4 mg SL Q5M PRN PRN Reason: CHEST PAIN Fentanyl Patch Check 0 each TOP DAILY RUMA Last Admin: 07/20/16 09:27 Dose: 1 each Fentanyl Patch Check 0 each TOP DAILY@2200 RUMA Last Admin: 07/20/16 22:19 Dose: Not Given Ondansetron HCl (Zofran) Confirm Administered Dose 4 mg .ROUTE .STK-MED ONE Stop: 07/16/16 07:27 Ondansetron HCl (Zofran) 4 mg IVPUSH Q4H PRN PRN Reason: NAUSEA Last Admin: 07/17/16 10:56 Dose: 4 mg Ondansetron HCl (Zofran) Confirm Administered Dose 4 mg .ROUTE .STK-MED ONE Stop: 07/20/16 16:44 Oxycodone/Acetaminophen (Percocet 325-5 Mg) 1 - 2 tab PO Q4H PRN PRN Reason: PAIN Last Admin: 07/20/16 03:34 Dose: 2 tab Polyethylene Glycol (Miralax) 119 gm PO ONETIME ONE Stop: 07/20/16 10:01 Last Admin: 07/20/16 09:35 Dose: 119 gm Propofol (Diprivan 20 Ml) Confirm Administered Dose 200 mg .ROUTE .STK-MED ONE Stop: 07/16/16 07:27 Propofol (Diprivan 20 Ml) Confirm Administered Dose 200 mg .ROUTE .STK-MED ONE Stop: 07/20/16 16:44 Rocuronium Lyle (Zemuron) Confirm Administered Dose 50 mg .ROUTE .STK-MED ONE Stop: 07/16/16 07:27 Rocuronium Lyle (Zemuron) Confirm Administered Dose 50 mg .ROUTE .STK-MED ONE Stop: 07/20/16 16:44 Rocuronium Lyle (Zemuron) Confirm Administered Dose 50 mg .ROUTE .STK-MED ONE Stop: 07/20/16 18:24 Sodium Chloride (Saline Flush) 10 ml IV ASDIRECTED PRN PRN Reason: LINE FLUSH Succinylcholine Chloride (Succinylcholine In Ns Pf) Confirm Administered Dose 200 mg .ROUTE .STK-MED ONE Stop: 07/16/16 07:27 Succinylcholine Chloride (Succinylcholine In Ns Pf) Confirm Administered Dose 200 mg .ROUTE .STK-MED ONE Stop: 07/20/16 16:44 Tamsulosin HCl (Flomax) 0.4 mg PO BEDTIME RUMA Last Admin: 07/19/16 21:18 Dose: 0.4 mg Tamsulosin HCl (Flomax) 0.4 mg PO ONETIME ONE Stop: 07/17/16 09:01 Last Admin: 07/17/16 10:18 Dose: 0.4 mg - Exam Quality Assessment: supplemental oxygen, urine catheter, DVT prophylaxis General: alert, oriented, cooperative, moderate distress Lungs: Clear to auscultation, Normal respiratory effort Cardiovascular: regular rhythm, no murmurs, tachycardia Abdomen: soft, tenderness, abnormal bowel sounds. No: distension Extremities: edema Skin: warm, dry, intact Consult PN Assessment/Plan Procedures: Procedures ASSAY OF TROPONIN QUANT (08/25/13) CARDIOVASCULAR STRESS TEST (11/07/14) CHEST X-RAY 1 VIEW FRONTAL (08/25/13) COMPLETE CBC W/AUTO DIFF WBC (08/25/13) COMPREHEN METABOLIC PANEL (08/25/13) ELECTROCARDIOGRAM REPORT (08/25/13) ELECTROCARDIOGRAM TRACING (08/25/13) EMERGENCY DEPT VISIT (08/25/13) EMERGENCY DEPT VISIT (08/25/13) HT MUSCLE IMAGE SPECT MULT (11/07/14) INITIAL OBSERVATION CARE (08/25/13) METABOLIC PANEL TOTAL CA (08/25/13) OBSERVATION CARE DISCHARGE (08/25/13) ROUTINE VENIPUNCTURE (08/25/13) THER/PROPH/DIAG INJ IV PUSH (08/25/13) TX/PRO/DX INJ NEW DRUG ADDON (08/25/13) Problem List Initiated/Reviewed/Updated: Yes My Orders last 24 hours: My Active Orders 07/20/16 08:23 EKG 12 Lead [EK] Stat 07/20/16 11:30 Chest Abdomen Pelvis wo Cont [CT] Stat 07/20/16 11:32 RT Aerosol Therapy [RC] ASDIRECTED 07/20/16 15:42 Urinary Catheter Assessment [RC] ASDIRECTED 07/20/16 15:45 Insert [place] Catheter [Insert Urinary Catheter] [OM.PC] Q24H Plan: ASSESSMENT AND RECOMMENDATIONS SEPSIS SECONDARY TO INTESTINAL PERFORATION-he has done well since surgery last night and has been hemodynamically stable as well as afebrile. Respiratory status has been good with adequate oxygenation, currently on nasal cannula. -Postoperative care per Dr. Youngblood -Blood cultures are pending -Empiric IV antibiotics with meropenem and levofloxacin STATUS POST ABDOMINAL WALL HERNIA REPAIR CORONARY ARTERY DISEASE-no symptoms of chest pain or pressure, EKG showed no acute ST segment changes in troponin level is within normal range
--- NOTE | 2016-07-21 09:20 | CR ---
Portable chest Comparison: Earlier same day. There is an endotracheal tube position at the medial clavicles 5 cm above the sylvia.. There is a le ft central venous catheter in good position with the tip near the junction of the SVC and right atri um. Shallow lung volumes are demonstrated. Surgical drains are demonstrated in the left upper quadra nt. Impression: 1. Interval placement of endotracheal tube and left subclavian line. 2. Shallow lung volumes.
[2016-07-21] MEDS: VERIFY FENTANYL PATCH TOP SCH ×2 (11:48→21:04)
[2016-07-21] MEDS: Aztreonam/Dextrose-Water 1 GM in Premix Bag 1 BAG IV SCH ×2 (13:42→21:04)
[2016-07-21] MEDS ORDERED: Lactated Ringers 1,000 ML IV SCH (18:00)
[2016-07-21] MEDS: Pantoprazole 40 MG Vial IV SCH (20:12)
[2016-07-22] MEDS: Lactated Ringers 1,000 ML IV SCH (00:36)
[2016-07-22] MEDS: hydrOXYzine HCl 50 MG/ML SDV IM PRN (03:57)
[2016-07-22] MEDS: Dextrose 5%-Lactated Ringers 1,000 ML IV SCH ×2 (04:00→12:41)
[2016-07-22] MEDS: Aztreonam/Dextrose-Water 1 GM in Premix Bag 1 BAG IV SCH ×3 (05:30→21:21)
[2016-07-22] MEDS: Meropenem 500 MG in Sodium Chloride 0.9% 50 ML IV SCH ×3 (05:32→21:21)
[2016-07-22] MEDS ORDERED: Meperidine PF 100 MG/ML Syringe IM ONE (06:13)
[2016-07-22] MEDS ORDERED: hydrOXYzine HCl 50 MG/ML SDV IM ONE (06:13)
[2016-07-22] MEDS ORDERED: Morphine PF 150 MG/30 ML PCA Syringe IV SCH (06:30)
[2016-07-22] MEDS ORDERED: Meropenem 500 MG SDV ONE (06:40)
[2016-07-22] MEDS ORDERED: Bupivacaine 0.5% 50 ML MDV ONE (06:40)
[2016-07-22] MEDS ORDERED: Lidocaine 1% with EPINEPHrine 1:100,000 50 ML MDV ONE (06:40)
[2016-07-22] MEDS ORDERED: fentaNYL 100 MCG/2 ML SDV ONE (07:03)
[2016-07-22] MEDS ORDERED: Propofol 200 MG/20 ML SDV ONE (07:03)
[2016-07-22] MEDS ORDERED: Midazolam 1 MG/ML 2 ML SDV ONE (07:03)
[2016-07-22] MEDS: Albuterol/Ipratropium 3.0-0.5 MG/3 ML Neb Soln INH SCH ×4 (07:15→20:33)
--- NOTE | 2016-07-22 07:42 | PN ---
DATE OF SERVICE: 07/20/2016 The patient's admitting temperature in the 102 range this morning and somewhat tachycardic. His abdominal x-ray showed massive dilation of the colon with a large amount of stool, and I suspect were probably dealing with a Pulmonary complication. We will get a sputum culture and blood cultures at this time and empirically start some Levaquin and then consult Dr. Brody regarding his postop temp and severe constipation. We will load with some OFFICE ASS[employer] as well as some Ativan for anxiety which is a significant component of this problem at this point. We will try to get some MiraLax going but after the enema this will begin getting the bowels moving. Sg Youngblood MD /[id number]
--- NOTE | 2016-07-22 07:53 | PN ---
DATE OF SERVICE: 07/21/2016 The patient has overnight been afebrile. Heart rate running around in the 100 to 110 range. Blood pressures are satisfactory, presently 129/74. CVP is running in the low teens. The O2 sats on face mask are in the mid 90s. He's a mouth breather so attempts to switch him to nasal canula have not been successful thus far. We needed to continue work rigorous with pulmonary toilet. Otherwise, urine output has been satisfactory. His creatinine did come up a fair bit at 2.2. With the urine output having been satisfactory, I think it should correct itself here over the next couple of days. The drains all look clear. At this point, G-tube is draining around 70 mL out so that is patent. Otherwise, no significant problems were noted on the labs. White count is 5300, hemoglobin 14. PLAN: At this point, we would keep the present IV rate running at 250 mL now until 6:00pm and then well try letting down on the and watch the CVP with some underlying heart history well need to watch the CVP. If it starts creeping up well need to augment some diuresis. That will probably happen over the next 2 or 3 days. Otherwise, maximize activity and work with pulmonary toilet. Plan with delayed primary closure tomorrow morning in the OR with IV sedation. Sg Youngblood MD /[id number]
[2016-07-22] MEDS ORDERED: Morphine PF 150 MG/30 ML PCA Syringe IV PRN (08:05)
[2016-07-22] MEDS ORDERED: Naloxone 0.4 MG/ML SDV IV PRN (08:07)
--- NOTE | 2016-07-22 08:18 | OR ---
DATE OF PROCEDURE: 07/16/2016 PREOPERATIVE DIAGNOSIS: Recurrent umbilical hernia. POSTOPERATIVE DIAGNOSES: 1. Recurrent incarcerated umbilical hernia. 2. Extensive adhesions between a previously placed mesh and omentum and the small bowel. OPERATIVE PROCEDURE: Diagnostic laparoscopy with: 1. Lysis of extensive adhesions (70 minutes) (69812-86). 2. Repair of recurrent incarcerated umbilical hernia with mesh (with removal of previous mesh) (20625). 3. Placement of Vicryl mesh to displace small bowel and omentum from the newly placed mesh to limit recurrent adhesion formation between the pelvis and abdominal wall and associated areas of the mesh placement (02745). ANESTHESIA: General. INDICATION FOR PROCEDURE: This is a 65-year-old male presenting with an increasingly uncomfortable area of recurrence of the umbilical hernia. This was then repaired several years ago with a mesh technique laparoscopically. The patient has some intermittent bulge in the area just to the left and slightly superior to the umbilicus and appears to have some incarcerated material with that. Plan is to do diagnostic laparoscopy, most likely remove those previous mesh and then replacement of the old mesh with some new mesh, which should hopefully be somewhat more comfortable. Potential risks including bleeding, infection, injury to underlying viscera, problems with mesh becoming infected, or the hernia recurring along with the remote possibility of cardiopulmonary, septic, or hemorrhagic complications leading to were discussed, and the patient wishes to proceed. DETAILS OF PROCEDURE: The patient was taken to the operating room and placed in a supine position. After general endotracheal anesthesia was induced, a Villeda catheter was inserted and the abdomen prepped and draped. In the left lateral mid abdomen, a transverse incision was made. The peritoneal cavity entered under direct vision with Optiview trocar. Eventually, 5 additional trocars were placed across the right and left abdominal wall. The patient had very extensive adhesions primarily to the omentum and the previously placed mesh. These were taken down gradually. At the inferior aspect of the mesh, there was a rim of some small bowel that was adherent. The omental adhesions were taken down with Harmonic scalpel and the small bowel adhesions were taken down with sharp dissection. There did not appear to be any areas of deserosalization at the completion of that, but to reinforce that area of small bowel dissection, 4 mL of fibrin sealant placed over at the conclusion of the dissection phase. At this point, the mesh was then removed from the abdominal wall using electrocautery. This was pulled up and brought out through the 12 mm trocar site on the left side. Looking at the underlying hernia, the patient had an incarcerated umbilical hernia. This extending somewhat to the left and superiorly and contained some preperitoneal fat. This was reduced. At that point, a 20.3 cm circular Parietex mesh with the inflating balloon system was selected. This was soaked in antibiotic-containing saline brought into the intraperitoneal location and at that point, through the center of the area of herniation, a small stab wound was made and the balloon catheter pulled out. The fixation balloon was then inflated and this then allowed circumferential placement of the absorbable tacking screws. At that point, there appeared to be good fixation of the mesh in all areas and then the inflating balloon was deflated and withdrawn. Given the previous extensive adhesion formation, a 12-inch square area of Vicryl mesh was placed down in the pelvis along the pelvic sidewalls and up against the abdominal wall including the area underlying the mesh to limit recurrent adhesion formation. At that point, no further problems were noted. Trocars removed. The fascia at the 12 mm trocar site was closed with 0 Vicryl stitch and skin adhesion incision with 6-0 Vicryl skin stitch. Dressing was applied. The patient was taken to the recovery room in satisfactory condition. Sg Youngblood MD /[id number]
[2016-07-22] MEDS ORDERED: fentaNYL 50 MCG/HR Transdermal Patch TRDERM SCH (09:00)
[2016-07-22] MEDS: Albumin 25% 12.5 GM in Premix Bag 1 BAG IV SCH ×4 (09:01→15:02)
--- NOTE | 2016-07-22 09:17 | PCM.CONSN ---
- General Info Date of Service: 07/22/16 - Review of Systems General: Reports: weakness. Denies: fever, chills Pulmonary: Reports: no symptoms Cardiovascular: Reports: no symptoms Gastrointestinal: Reports: Abdominal pain. Denies: Flatus, Nausea, Vomiting Systems Review Comment:: This patient is status post delayed primary closure done earlier this morning. Heart rate has been up since then but he's otherwise been stable and afebrile. Pain control has been adequate, he is not yet passed gas or had a bowel movement. - Patient Data Vitals - most recent: Last Vital Signs Temp 99.3 F 07/22/16 08:48 Pulse 110 H 07/22/16 08:48 Resp 14 07/22/16 08:48 BP 171/71 H 07/22/16 08:48 Pulse Ox 93 L 07/22/16 08:48 Weight - most recent: 253 lb 4.802 oz I&O - last 24 hours: Intake & Output 07/21/16 07/22/16 07/22/16 22:59 06:59 14:59 Intake Total 2093 1845 Output Total 535 1030 240 Balance 1558 815 -240 Lab Results last 24 hrs: Laboratory Results - last 24 hr 07/22/16 07/22/16 07/22/16 Range/Units 04:00 04:00 06:37 WBC 12.9 H (4.5-11.0) K/uL RBC 4.57 (4.30-5.90) M/uL Hgb 13.2 (12.0-15.0) g/dL Hct 41.2 (40.0-54.0) % MCV 90 (80-98) fL MCH 29 (27-31) pg MCHC 32 (32-36) % Plt Count 220 (150-400) K/uL Sodium 142 (140-148) mmol/L Potassium 4.6 (3.6-5.2) mmol/L Chloride 105 (100-108) mmol/L Carbon Dioxide 32 (21-32) mmol/L Anion Gap 5.3 (5.0-14.0) mmol/L BUN 49 H (7-18) mg/dL Creatinine 2.2 H (0.8-1.3) mg/dL Est Cr Clr Drug Dosing 35.57 mL/min Estimated GFR (MDRD) 30 L (>60) Glucose 108 H (74-106) mg/dL Calcium 7.7 L (8.5-10.1) mg/dL Phosphorus 5.4 H (2.5-4.9) mg/dL Magnesium 2.6 H (1.8-2.4) mg/dL Total Bilirubin 0.4 (0.2-1.0) mg/dL AST 139 H D (15-37) U/L ALT 69 (12-78) U/L Alkaline Phosphatase 17 L (46-116) U/L [id number] Pept 276 H (5-125) pg/mL Total Protein 5.4 L (6.4-8.2) g/dL Albumin 1.6 L (3.4-5.0) g/dL Globulin 3.8 H (2.3-3.5) g/dL Albumin/Globulin Ratio 0.4 L (1.2-2.2) Boby Results last 24 hrs: Microbiology 07/20/16 07:45 Aerobic Blood Culture - Preliminary Blood - Venous - Lab Draw NO GROWTH AFTER 2 DAYS Anaerobic Blood Culture - Preliminary NO GROWTH AFTER 2 DAYS 07/20/16 07:40 Aerobic Blood Culture - Preliminary Blood - Arm, Left NO GROWTH AFTER 2 DAYS Anaerobic Blood Culture - Preliminary NO GROWTH AFTER 2 DAYS 07/20/16 18:22 Gram Stain - Final Peritoneal Fluid Wound Culture - Preliminary Med Orders - Current: Current Medications Albuterol/Ipratropium (Duoneb 3.0-0.5 Mg/3 Ml) 3 ml INH QIDRT [facility] Last Admin: 07/21/16 20:12 Dose: 3 ml Albuterol/Ipratropium (Duoneb 3.0-0.5 Mg/3 Ml) 3 ml INH ASDIRECTED PRN PRN Reason: * Buspirone HCl (Buspar) 15 mg PO DAILY [facility] Buspirone HCl (Buspar) 7.5 mg PO BEDTIME [facility] Fentanyl (Duragesic) 50 mcg TRDERM Q72H [facility] Hydroxyzine HCl (Vistaril) 100 mg IM Q4H PRN PRN Reason: PAIN Last Admin: 07/22/16 03:57 Dose: 100 mg Dextrose/Lactated Ringer's (Dextrose 5%-Lactated Ringers) 1,000 mls @ 100 mls/ hr IV ASDIRECTED [facility] Last Admin: 07/22/16 04:00 Dose: 100 mls/hr Meropenem 500 mg/ Sodium (Chloride) 50 mls @ 100 mls/hr IV Q8H [facility] Last Admin: 07/22/16 05:32 Dose: 100 mls/hr Aztreonam/Dextrose 1 gm/ (Premix) 50 mls @ 100 mls/hr IV Q8HR [facility] Last Admin: 07/22/16 05:30 Dose: 100 mls/hr Lactated Ringer's (Ringers, Lactated) 1,000 mls @ 40 mls/hr IV ASDIRECTED [facility] Last Admin: 07/22/16 00:36 Dose: 40 mls/hr Albumin Human 12.5 gm/ Premix 50 mls @ 25 mls/hr IV Q24H [facility] Stop: 07/26/16 10:59 Last Admin: 07/22/16 09:01 Dose: 25 mls/hr Albumin Human 12.5 gm/ Premix 50 mls @ 25 mls/hr IV Q24H [facility] Stop: 07/26/16 12:59 Albumin Human 12.5 gm/ Premix 50 mls @ 25 mls/hr IV Q24H [facility] Stop: 07/26/16 14:59 Albumin Human 12.5 gm/ Premix 50 mls @ 25 mls/hr IV Q24H [facility] Stop: 07/26/16 16:59 Labetalol HCl (Normodyne) 5 - 10 mg IV Q2H PRN PRN Reason: BP Lorazepam (Ativan) 0.5 mg IVPUSH Q2H PRN PRN Reason: Anxiety Losartan Potassium (Cozaar) 50 mg PO DAILY [facility] Morphine Sulfate (Morphine Wall Covering [employer]or 150 Mg In 30 Ml) 0 mg IV ASDIRECTED PRN; Protocol PRN Reason: PAIN Naloxone HCl (Narcan) 0.1 mg IV ASDIRECTED PRN PRN Reason: decreased respiratory rate Nitroglycerin (Nitrostat) 0.4 mg SL Q5M PRN PRN Reason: CHEST PAIN Verify Fentanyl (Patch) 0 each TOP BID [facility] Last Admin: 07/21/16 21:04 Dose: Not Given Ondansetron HCl (Zofran) 4 mg IVPUSH Q4H PRN PRN Reason: NAUSEA Pantoprazole Sodium (Protonix Iv) 40 mg IV Q24H [facility] Last Admin: 07/21/16 20:12 Dose: 40 mg Discontinued Medications Albuterol (Proventil Neb Soln) 2.5 mg NEB Q4H PRN PRN Reason: Dyspnea Last Admin: 07/20/16 16:13 Dose: 2.5 mg Bacitracin (Bacitracin Oint) 0 gm TOP TID [facility] Last Admin: 07/20/16 13:58 Dose: 1 applic Bisacodyl (Dulcolax) 10 mg PO BID [facility] Last Admin: 07/20/16 09:22 Dose: 10 mg Bisacodyl (Dulcolax) 10 mg RECTAL BID PRN PRN Reason: Constipation Last Admin: 07/19/16 17:31 Dose: 10 mg Bupivacaine HCl (Marcaine 0.5%) Confirm Administered Dose 50 ml .ROUTE .STK-MED ONE Stop: 07/22/16 06:41 Last Admin: 07/22/16 07:34 Dose: 20 ml Bupivacaine HCl/Epinephrine Bitart (Marcaine 0.5%/Epinephrine 1:200,000) Confirm Administered Dose 50 ml .ROUTE .STK-MED ONE Stop: 07/16/16 06:43 Last Admin: 07/16/16 07:28 Dose: 10 ml Buspirone HCl (Buspar) 15 mg PO DAILY [facility] Last Admin: 07/20/16 09:21 Dose: 15 mg Buspirone HCl (Buspar) 7.5 mg PO QPM [facility] Last Admin: 07/20/16 17:57 Dose: Not Given Dexamethasone (Dexamethasone) Confirm Administered Dose 4 mg .ROUTE .STK-MED ONE Stop: 07/16/16 07:27 Dexamethasone (Dexamethasone) Confirm Administered Dose 4 mg .ROUTE .STK-MED ONE Stop: 07/20/16 16:44 Diatrizoate Meglum/Diatrizoate Sod (Gastrografin 37%) 1,200 ml .XX . DIRECTED [facility] Stop: 07/20/16 14:16 Last Admin: 07/20/16 15:27 Dose: 1,200 ml Fentanyl (Sublimaze) Confirm Administered Dose 500 mcg .ROUTE .STK-MED ONE Stop: 07/16/16 07:27 Fentanyl (Sublimaze) Confirm Administered Dose 250 mcg .ROUTE .STK-MED ONE Stop: 07/16/16 09:21 Fentanyl (Duragesic) 25 mcg TRDERM Q72H [facility] Last Admin: 07/20/16 09:24 Dose: 25 mcg Fentanyl (Sublimaze) Confirm Administered Dose 250 mcg .ROUTE .STK-MED ONE Stop: 07/20/16 16:45 Fentanyl (Sublimaze) Confirm Administered Dose 250 mcg .ROUTE .STK-MED ONE Stop: 07/20/16 18:24 Fentanyl (Duragesic) 25 mcg TRDERM Q72H [facility] Last Admin: 07/20/16 22:18 Dose: Not Given Fentanyl (Duragesic) 25 mcg TRDERM Q72H [facility] Fentanyl (Sublimaze) Confirm Administered Dose 100 mcg .ROUTE .STK-MED ONE Stop: 07/22/16 07:04 Glycopyrrolate () Confirm Administered Dose 1 mg .ROUTE .STK-MED ONE Stop: 07/16/16 07:27 Glycopyrrolate () Confirm Administered Dose 1 mg .ROUTE .STK-MED ONE Stop: 07/20/16 16:44 Heparin Sodium (Porcine) (Heparin Lock Flush 100 Units/Ml Syringe) Confirm Administered Dose 500 units .ROUTE .STK-MED ONE Stop: 07/20/16 17:25 Last Admin: 07/20/16 17:28 Dose: 500 units Heparin Sodium (Porcine) (Heparin Sodium) Confirm Administered Dose 5,000 units .ROUTE .STK-MED ONE Stop: 07/20/16 20:54 Last Admin: 07/20/16 21:06 Dose: 5,000 units Hydromorphone HCl (Dilaudid Wall Covering Contractor 15 Mg In Ns 30 Ml) 0 mg IV ASDIRECTED PRN; Protocol PRN Reason: Pain Last Admin: 07/16/16 07:37 Dose: 0.3 mg Hydromorphone HCl (Dilaudid Wall Covering [employer]or 15 Mg In Ns 30 Ml) 0 mg IV ASDIRECTED PRN; Protocol PRN Reason: PAIN Last Admin: 07/20/16 07:38 Dose: 15 mg Hydromorphone HCl (Dilaudid Wall Covering [employer]or 15 Mg In Ns 30 Ml) 0 mg IV ASDIRECTED PRN; Protocol PRN Reason: PAIN Last Admin: 07/21/16 07:19 Dose: 15 mg Hydroxyzine HCl (Vistaril) 100 mg IM Q4H PRN PRN Reason: Pain Last Admin: 07/20/16 14:41 Dose: 100 mg Hydroxyzine HCl (Vistaril) 50 mg IM ONETIME ONE Stop: 07/22/16 06:14 Last Admin: 07/22/16 06:29 Dose: 50 mg Clindamycin Phosphate 900 mg/ (Sodium Chloride) 106 mls @ 212 mls/hr IV ONETIME ONE Stop: 07/16/16 07:59 Last Admin: 07/16/16 07:48 Dose: 212 mls/hr Dextrose/Lactated Ringer's (Dextrose 5%-Lactated Ringers) 1,000 mls @ 100 mls/ hr IV ASDIRECTED [facility] Last Admin: 07/16/16 07:37 Dose: 100 mls/hr Lactated Ringer's (Ringers, Lactated) Confirm Administered Dose 1,000 mls @ as directed .ROUTE .STK-MED ONE Stop: 07/16/16 09:17 Dextrose/Lactated Ringer's (Dextrose 5%-Lactated Ringers) 1,000 mls @ 150 mls/ hr IV ASDIRECTED [facility] Last Admin: 07/18/16 04:26 Dose: 150 mls/hr Cefazolin Sodium 2 gm/ Sodium (Chloride) 50 mls @ 100 mls/hr IV Q8H [facility] Stop: 07/17/16 06:29 Last Admin: 07/17/16 05:08 Dose: 100 mls/hr Dextrose/Lactated Ringer's (Dextrose 5%-Lactated Ringers) 1,000 mls @ 100 mls/ hr IV ASDIRECTED [facility] Last Admin: 07/19/16 14:53 Dose: 100 mls/hr Acetaminophen 1,000 mg/ Premix 100 mls @ 400 mls/hr IV Q6H PRN PRN Reason: PAIN Stop: 07/20/16 10:30 Acetaminophen 1,000 mg/ Premix 100 mls @ 400 mls/hr IV NOW ONE Stop: 07/20/16 07:32 Last Admin: 07/20/16 07:31 Dose: 400 mls/hr Lactated Ringer's (Ringers, Lactated) 1,000 mls @ 1,000 mls/hr IV ASDIRECTED [facility] Stop: 07/20/16 09:31 Last Admin: 07/20/16 09:10 Dose: 1,000 mls/hr Levofloxacin/Dextrose 500 mg/ (Premix) 100 mls @ 100 mls/hr IV Q24H [facility] Last Admin: 07/20/16 09:22 Dose: 100 mls/hr Acetaminophen 1,000 mg/ Premix 100 mls @ 400 mls/hr IV Q6H [facility] Last Admin: 07/20/16 22:20 Dose: 400 mls/hr Lactated Ringer's (Ringers, Lactated) 1,000 mls @ 250 mls/hr IV ASDIRECTED [facility] Stop: 07/20/16 14:01 Last Admin: 07/20/16 11:04 Dose: 250 mls/hr Meropenem 1 gm/ Sodium (Chloride) 50 mls @ 100 mls/hr IV Q8H [facility] Last Admin: 07/20/16 11:41 Dose: 100 mls/hr Lactated Ringer's (Ringers, Lactated) 1,000 mls @ 999 mls/hr IV BOLUS ONE Stop: 07/20/16 17:19 Last Admin: 07/20/16 21:10 Dose: 999 mls/hr Lactated Ringer's (Ringers, Lactated) Confirm Administered Dose 1,000 mls @ as directed .ROUTE .STK-MED ONE Stop: 07/20/16 18:26 Lactated Ringer's (Ringers, Lactated) Confirm Administered Dose 1,000 mls @ as directed .ROUTE .STK-MED ONE Stop: 07/20/16 18:27 Lactated Ringer's (Ringers, Lactated) 1,000 mls @ 100 mls/hr IV ASDIRECTED [facility] Stop: 07/21/16 17:59 Last Admin: 07/21/16 07:22 Dose: 100 mls/hr Aztreonam 1 gm/ Sodium (Chloride) 50 mls @ 100 mls/hr IV Q8HR [facility] Last Admin: 07/21/16 05:06 Dose: 100 mls/hr Acetaminophen 1,000 mg/ Premix 100 mls @ 400 mls/hr IV Q6H [facility] Stop: 07/21/16 16:14 Last Admin: 07/21/16 17:12 Dose: 400 mls/hr Lactated Ringer's (Ringers, Lactated) 1,000 mls @ 40 mls/hr IV ASDIRECTED [facility] Ketorolac Tromethamine (Toradol) 60 mg IM ONETIME ONE Stop: 07/19/16 17:04 Last Admin: 07/19/16 17:30 Dose: 60 mg Lidocaine HCl (Xylocaine 2% Jelly) 10 ml MUCMEM ONETIME ONE Stop: 07/16/16 21:15 Last Admin: 07/16/16 21:41 Dose: 10 ml Lidocaine/Epinephrine (Xylocaine 1% With Epinephrine 1:100,000) Confirm Administered Dose 50 ml .ROUTE .STK-MED ONE Stop: 07/22/16 06:41 Last Admin: 07/22/16 07:34 Dose: 20 ml Lorazepam (Ativan) 0.5 - 1 mg IVPUSH Q4H PRN PRN Reason: Anxiety Losartan Potassium (Cozaar) 50 mg PO DAILY [facility] Last Admin: 07/20/16 09:21 Dose: 50 mg Magnesium Citrate (Citrate Of Magnesia) 296 ml PO ONETIME ONE Stop: 07/18/16 09:01 Last Admin: 07/18/16 10:55 Dose: 296 ml Magnesium Hydroxide (Milk Of Magnesia) 30 ml PO ONETIME ONE Stop: 07/19/16 08:46 Last Admin: 07/19/16 10:27 Dose: 30 ml Meperidine HCl (Demerol) 100 mg IM ONETIME ONE Stop: 07/20/16 16:01 Last Admin: 07/20/16 16:05 Dose: 100 mg Meperidine HCl (Demerol) 100 mg IM ONETIME ONE Stop: 07/22/16 06:14 Last Admin: 07/22/16 06:28 Dose: 100 mg Meropenem (Merrem) Confirm Administered Dose 500 mg .ROUTE .STK-MED ONE Stop: 07/16/16 06:43 Last Admin: 07/16/16 09:25 Dose: 500 mg Meropenem (Merrem) Confirm Administered Dose 2,000 mg .ROUTE .STK-MED ONE Stop: 07/20/16 17:25 Last Admin: 07/20/16 17:25 Dose: 2,000 mg Meropenem (Merrem) Confirm Administered Dose 500 mg .ROUTE .STK-MED ONE Stop: 07/22/16 06:41 Last Admin: 07/22/16 07:34 Dose: 500 mg Midazolam HCl (Versed 1 Mg/Ml) Confirm Administered Dose 2 mg .ROUTE .STK-MED ONE Stop: 07/20/16 16:46 Midazolam HCl (Versed 1 Mg/Ml) Confirm Administered Dose 2 mg .ROUTE .STK-MED ONE Stop: 07/22/16 07:04 Morphine Sulfate (Morphine Wall Covering [employer]or 150 Mg In 30 Ml) 150 mg IV ASDIRECTED [facility] PRN Reason: Protocol Last Admin: 07/22/16 06:49 Dose: 150 mg Naloxone HCl (Narcan) 0.1 mg IV ASDIRECTED PRN PRN Reason: decreased respiratory rate Naloxone HCl (Narcan) 0.1 mg IV ASDIRECTED PRN PRN Reason: decreased respiratory rate Naloxone HCl (Narcan) Confirm Administered Dose 0.4 mg .ROUTE .STK-MED ONE Stop: 07/20/16 20:01 Naloxone HCl (Narcan) 0.1 mg IV ASDIRECTED PRN PRN Reason: decreased respiratory rate Neostigmine Methylsulfate (Neostigmine) Confirm Administered Dose 5 mg .ROUTE .STK-MED ONE Stop: 07/16/16 07:27 Neostigmine Methylsulfate (Neostigmine) Confirm Administered Dose 5 mg .ROUTE .STK-MED ONE Stop: 07/20/16 16:44 Nitroglycerin (Nitrostat) 0.4 mg SL Q5M PRN PRN Reason: CHEST PAIN Fentanyl Patch Check 0 each TOP DAILY [facility] Last Admin: 07/20/16 09:27 Dose: 1 each Fentanyl Patch Check 0 each TOP DAILY@2200 [facility] Last Admin: 07/20/16 22:19 Dose: Not Given Ondansetron HCl (Zofran) Confirm Administered Dose 4 mg .ROUTE .STK-MED ONE Stop: 07/16/16 07:27 Ondansetron HCl (Zofran) 4 mg IVPUSH Q4H PRN PRN Reason: NAUSEA Last Admin: 07/17/16 10:56 Dose: 4 mg Ondansetron HCl (Zofran) Confirm Administered Dose 4 mg .ROUTE .STK-MED ONE Stop: 07/20/16 16:44 Oxycodone/Acetaminophen (Percocet 325-5 Mg) 1 - 2 tab PO Q4H PRN PRN Reason: PAIN Last Admin: 07/20/16 03:34 Dose: 2 tab Polyethylene Glycol (Miralax) 119 gm PO ONETIME ONE Stop: 07/20/16 10:01 Last Admin: 07/20/16 09:35 Dose: 119 gm Propofol (Diprivan 20 Ml) Confirm Administered Dose 200 mg .ROUTE .STK-MED ONE Stop: 07/16/16 07:27 Propofol (Diprivan 20 Ml) Confirm Administered Dose 200 mg .ROUTE .STK-MED ONE Stop: 07/20/16 16:44 Propofol (Diprivan 20 Ml) Confirm Administered Dose 200 mg .ROUTE .STK-MED ONE Stop: 07/22/16 07:04 Rocuronium [place] (Zemuron) Confirm Administered Dose 50 mg .ROUTE .STK-MED ONE Stop: 07/16/16 07:27 Rocuronium [place] (Zemuron) Confirm Administered Dose 50 mg .ROUTE .STK-MED ONE Stop: 07/20/16 16:44 Rocuronium [place] (Zemuron) Confirm Administered Dose 50 mg .ROUTE .STK-MED ONE Stop: 07/20/16 18:24 Sodium Chloride (Saline Flush) 10 ml IV ASDIRECTED PRN PRN Reason: LINE FLUSH Succinylcholine Chloride (Succinylcholine In Ns Pf) Confirm Administered Dose 200 mg .ROUTE .STK-MED ONE Stop: 07/16/16 07:27 Succinylcholine Chloride (Succinylcholine In Ns Pf) Confirm Administered Dose 200 mg .ROUTE .STK-MED ONE Stop: 07/20/16 16:44 Tamsulosin HCl (Flomax) 0.4 mg PO BEDTIME [facility] Last Admin: 07/19/16 21:18 Dose: 0.4 mg Tamsulosin HCl (Flomax) 0.4 mg PO ONETIME ONE Stop: 07/17/16 09:01 Last Admin: 07/17/16 10:18 Dose: 0.4 mg - Exam Quality Assessment: supplemental oxygen, urine catheter General: alert, cooperative, mild distress, sedated Lungs: Clear to auscultation, Normal respiratory effort Cardiovascular: regular rate, regular rhythm, no murmurs Abdomen: soft, no distension, tenderness. No: rigidity, rebound, guarding Extremities: edema Skin: warm, dry, intact Consult PN Assessment/Plan Procedures: Procedures ASSAY OF TROPONIN QUANT (08/25/13) CARDIOVASCULAR STRESS TEST (11/07/14) CHEST X-RAY 1 VIEW FRONTAL (08/25/13) COMPLETE CBC W/AUTO DIFF WBC (08/25/13) COMPREHEN METABOLIC PANEL (08/25/13) ELECTROCARDIOGRAM REPORT (08/25/13) ELECTROCARDIOGRAM TRACING (08/25/13) EMERGENCY DEPT VISIT (08/25/13) EMERGENCY DEPT VISIT (08/25/13) HT MUSCLE IMAGE SPECT MULT (11/07/14) INITIAL OBSERVATION CARE (08/25/13) METABOLIC PANEL TOTAL CA (08/25/13) OBSERVATION CARE DISCHARGE (08/25/13) ROUTINE VENIPUNCTURE (08/25/13) THER/PROPH/DIAG INJ IV PUSH (08/25/13) TX/PRO/DX INJ NEW DRUG ADDON (08/25/13) Problem List Initiated/Reviewed/Updated: Yes Plan: ASSESSMENT AND RECOMMENDATIONS SEPSIS SECONDARY TO INTESTINAL PERFORATION-status post delayed primary closure done earlier today, mildly tachycardic but otherwise hemodynamically stable and afebrile. Not yet passing gas and has not yet had a bowel movement. -Postoperative care per Dr. Youngblood -Blood cultures are pending -Empiric IV antibiotics with meropenem and levofloxacin STATUS POST ABDOMINAL WALL HERNIA REPAIR CORONARY ARTERY DISEASE-no symptoms of chest pain or pressure, EKG showed no acute ST segment changes in troponin level is within normal range
[2016-07-22] MEDS: busPIRone 5 MG Tab PO SCH ×2 (09:41→20:32)
[2016-07-22] MEDS: Losartan 50 MG Tab PO SCH (09:42)
[2016-07-22] MEDS: VERIFY FENTANYL PATCH TOP SCH ×2 (11:17→20:54)
[2016-07-22] MEDS: Labetalol 20 MG/4 ML Syringe IV PRN (20:33)
[2016-07-22] MEDS: Pantoprazole 40 MG Vial IV SCH (20:37)
[2016-07-23] MEDS: Dextrose 5%-Lactated Ringers 1,000 ML IV SCH (00:19)
[2016-07-23] MEDS: Labetalol 20 MG/4 ML Syringe IV PRN ×4 (03:05→23:45)
[2016-07-23] MEDS: Lactated Ringers 1,000 ML IV SCH (03:55)
[2016-07-23] MEDS: Meropenem 500 MG in Sodium Chloride 0.9% 50 ML IV SCH ×3 (05:51→22:00)
[2016-07-23] MEDS: Aztreonam/Dextrose-Water 1 GM in Premix Bag 1 BAG IV SCH ×3 (05:51→22:30)
[2016-07-23] MEDS ORDERED: Haloperidol Lactate 5 MG/ML SDV IVPUSH ONE (06:17)
[2016-07-23] MEDS: Albuterol/Ipratropium 3.0-0.5 MG/3 ML Neb Soln INH SCH ×4 (07:05→20:35)
[2016-07-23] MEDS ORDERED: Lactated Ringers 1,000 ML IV SCH (07:30)
[2016-07-23] MEDS: Albumin 25% 12.5 GM in Premix Bag 1 BAG IV SCH ×4 (08:05→14:03)
[2016-07-23] MEDS: Furosemide 20 MG/2 ML VIAL IVPUSH SCH ×2 (08:08→16:55)
[2016-07-23] MEDS: busPIRone 5 MG Tab PO SCH ×2 (08:35→20:34)
[2016-07-23] MEDS: Losartan 50 MG Tab PO SCH (08:35)
[2016-07-23] MEDS ORDERED: fentaNYL 25 MCG/HR Transdermal Patch TRDERM SCH (09:00)
--- NOTE | 2016-07-23 09:20 | PCM.CONSN ---
- General Info Date of Service: 07/23/16 Functional Status: Reports: pain controlled, tolerating diet, ambulating - Review of Systems General: Reports: weakness. Denies: fever, chills Pulmonary: Reports: no symptoms Cardiovascular: Reports: no symptoms Gastrointestinal: Reports: Abdominal pain, Flatus. Denies: Diarrhea, Difficulty swallowing, Nausea, Vomiting Systems Review Comment:: This patient has remained stable over the past 24 hours, he's tolerating a clear liquid diet and has been up and ambulating. Vital signs have been stable and he has remained afebrile. - Patient Data Vitals - most recent: Last Vital Signs Temp 99.1 F 07/23/16 07:00 Pulse 75 07/23/16 08:00 Resp 17 07/23/16 08:00 BP 160/62 H 07/23/16 08:35 Pulse Ox 94 L 07/23/16 08:00 Weight - most recent: 253 lb 4.802 oz I&O - last 24 hours: Intake & Output 07/22/16 07/23/16 07/23/16 22:59 06:59 14:59 Intake Total 2172 1718 Output Total 1173 1310 Balance 999 408 Lab Results last 24 hrs: Laboratory Results - last 24 hr 07/23/16 07/23/16 Range/Units 04:00 04:00 WBC 14.6 H (4.5-11.0) K/uL RBC 4.24 L (4.30-5.90) M/uL Hgb 12.3 (12.0-15.0) g/dL Hct 38.7 L (40.0-54.0) % MCV 91 (80-98) fL MCH 29 (27-31) pg MCHC 32 (32-36) % Plt Count 219 (150-400) K/uL Sodium 146 (140-148) mmol/L Potassium 4.3 (3.6-5.2) mmol/L Chloride 109 H (100-108) mmol/L Carbon Dioxide 31 (21-32) mmol/L Anion Gap 10.3 (5.0-14.0) mmol/L BUN 50 H (7-18) mg/dL Creatinine 2.0 H (0.8-1.3) mg/dL Est Cr Clr Drug Dosing 39.13 mL/min Estimated GFR (MDRD) 34 L (>60) Glucose 110 H (74-106) mg/dL Calcium 7.9 L (8.5-10.1) mg/dL Phosphorus 4.6 (2.5-4.9) mg/dL Magnesium 2.6 H (1.8-2.4) mg/dL Total Bilirubin 0.5 (0.2-1.0) mg/dL AST 106 H (15-37) U/L ALT 69 (12-78) U/L Alkaline Phosphatase 25 L (46-116) U/L [id number]-Diyvnpibshh Pept 3307 H (5-125) pg/mL Total Protein 5.5 L (6.4-8.2) g/dL Albumin 2.0 L (3.4-5.0) g/dL Globulin 3.5 (2.3-3.5) g/dL Albumin/Globulin Ratio 0.6 L (1.2-2.2) Boby Results last 24 hrs: Microbiology 07/20/16 07:45 Aerobic Blood Culture - Preliminary Blood - Venous - Lab Draw NO GROWTH AFTER 3 DAYS Anaerobic Blood Culture - Preliminary NO GROWTH AFTER 3 DAYS 07/20/16 07:40 Aerobic Blood Culture - Preliminary Blood - Arm, Left NO GROWTH AFTER 3 DAYS Anaerobic Blood Culture - Preliminary NO GROWTH AFTER 3 DAYS 07/20/16 18:22 Gram Stain - Final Peritoneal Fluid Wound Culture - Final Enterococcus Faecalis Escherichia Coli Anaerobic Culture - Preliminary NO GROWTH AFTER 2 DAYS Med Orders - Current: Current Medications Albuterol/Ipratropium (Duoneb 3.0-0.5 Mg/3 Ml) 3 ml INH QIDRT [facility] Last Admin: 07/23/16 07:05 Dose: 3 ml Albuterol/Ipratropium (Duoneb 3.0-0.5 Mg/3 Ml) 3 ml INH ASDIRECTED PRN PRN Reason: * Buspirone HCl (Buspar) 15 mg PO DAILY [facility] Last Admin: 07/23/16 08:35 Dose: 15 mg Buspirone HCl (Buspar) 7.5 mg PO BEDTIME [facility] Last Admin: 07/22/16 20:32 Dose: 7.5 mg Fentanyl (Duragesic) 50 mcg TRDERM Q72H [facility] Last Admin: 07/22/16 09:40 Dose: 50 mcg Furosemide (Lasix) 20 mg IVPUSH Q8H [facility] Last Admin: 07/23/16 08:08 Dose: 20 mg Haloperidol Lactate (Haldol) 2.5 mg IVPUSH Q1H PRN PRN Reason: PSYCHOSIS/ANXIETY Hydroxyzine HCl (Vistaril) 100 mg IM Q4H PRN PRN Reason: PAIN Last Admin: 07/22/16 03:57 Dose: 100 mg Dextrose/Lactated Ringer's (Dextrose 5%-Lactated Ringers) 1,000 mls @ 100 mls/ hr IV ASDIRECTED [facility] Stop: 07/23/16 09:59 Last Admin: 07/23/16 00:19 Dose: 100 mls/hr Meropenem 500 mg/ Sodium (Chloride) 50 mls @ 100 mls/hr IV Q8H [facility] Last Admin: 07/23/16 05:51 Dose: 100 mls/hr Aztreonam/Dextrose 1 gm/ (Premix) 50 mls @ 100 mls/hr IV Q8HR [facility] Last Admin: 07/23/16 05:51 Dose: 100 mls/hr Albumin Human 12.5 gm/ Premix 50 mls @ 25 mls/hr IV Q24H [facility] Stop: 07/26/16 10:59 Last Admin: 07/23/16 08:05 Dose: 25 mls/hr Albumin Human 12.5 gm/ Premix 50 mls @ 25 mls/hr IV Q24H [facility] Stop: 07/26/16 12:59 Last Admin: 07/22/16 11:16 Dose: 25 mls/hr Albumin Human 12.5 gm/ Premix 50 mls @ 25 mls/hr IV Q24H [facility] Stop: 07/26/16 14:59 Last Admin: 07/22/16 12:42 Dose: 25 mls/hr Albumin Human 12.5 gm/ Premix 50 mls @ 25 mls/hr IV Q24H [facility] Stop: 07/26/16 16:59 Last Admin: 07/22/16 15:02 Dose: 25 mls/hr Multivitamins/Minerals 10 ml/Chromium/Copper/Manganese/Seleni/Zn 1 ml/ Amino Ac/ Electrol/Dextrose/Calcium 1,011 mls @ 82 mls/hr IV .BY DURATION [facility] Amino Ac/Electrol/Dextrose/Calcium (Clinimix E 09/27) 1,000 mls @ 82 mls/hr IV .BY DURATION [facility] Lactated Ringer's (Ringers, Lactated) 1,000 mls @ 0 mls/hr IV ASDIRECTED RUMA PRN Reason: KVO Labetalol HCl (Normodyne) 5 - 10 mg IV Q2H PRN PRN Reason: BP Last Admin: 07/23/16 03:05 Dose: 10 mg Lorazepam (Ativan) 0.5 mg IVPUSH Q2H PRN PRN Reason: Anxiety Losartan Potassium (Cozaar) 50 mg PO DAILY [facility] Last Admin: 07/23/16 08:35 Dose: 50 mg Morphine Sulfate (Morphine Strategic Partner Development Manager 150 Mg In 30 Ml) 0 mg IV ASDIRECTED PRN; Protocol PRN Reason: PAIN Naloxone HCl (Narcan) 0.1 mg IV ASDIRECTED PRN PRN Reason: decreased respiratory rate Nitroglycerin (Nitrostat) 0.4 mg SL Q5M PRN PRN Reason: CHEST PAIN Verify Fentanyl (Patch) 0 each TOP BID [facility] Last Admin: 07/22/16 20:54 Dose: Not Given Ondansetron HCl (Zofran) 4 mg IVPUSH Q4H PRN PRN Reason: NAUSEA Pantoprazole Sodium (Protonix Iv) 40 mg IV Q24H [facility] Last Admin: 07/22/16 20:37 Dose: 40 mg Discontinued Medications Albuterol (Proventil Neb Soln) 2.5 mg NEB Q4H PRN PRN Reason: Dyspnea Last Admin: 07/20/16 16:13 Dose: 2.5 mg Bacitracin (Bacitracin Oint) 0 gm TOP TID [facility] Last Admin: 07/20/16 13:58 Dose: 1 applic Bisacodyl (Dulcolax) 10 mg PO BID [facility] Last Admin: 07/20/16 09:22 Dose: 10 mg Bisacodyl (Dulcolax) 10 mg RECTAL BID PRN PRN Reason: Constipation Last Admin: 07/19/16 17:31 Dose: 10 mg Bupivacaine HCl (Marcaine 0.5%) Confirm Administered Dose 50 ml .ROUTE .STK-MED ONE Stop: 07/22/16 06:41 Last Admin: 07/22/16 07:34 Dose: 20 ml Bupivacaine HCl/Epinephrine Bitart (Marcaine 0.5%/Epinephrine 1:200,000) Confirm Administered Dose 50 ml .ROUTE .STK-MED ONE Stop: 07/16/16 06:43 Last Admin: 07/16/16 07:28 Dose: 10 ml Buspirone HCl (Buspar) 15 mg PO DAILY [facility] Last Admin: 07/20/16 09:21 Dose: 15 mg Buspirone HCl (Buspar) 7.5 mg PO QPM [facility] Last Admin: 07/20/16 17:57 Dose: Not Given Dexamethasone (Dexamethasone) Confirm Administered Dose 4 mg .ROUTE .STK-MED ONE Stop: 07/16/16 07:27 Dexamethasone (Dexamethasone) Confirm Administered Dose 4 mg .ROUTE .STK-MED ONE Stop: 07/20/16 16:44 Diatrizoate Meglum/Diatrizoate Sod (Gastrografin 37%) 1,200 ml .XX . DIRECTED [facility] Stop: 07/20/16 14:16 Last Admin: 07/20/16 15:27 Dose: 1,200 ml Fentanyl (Sublimaze) Confirm Administered Dose 500 mcg .ROUTE .STK-MED ONE Stop: 07/16/16 07:27 Fentanyl (Sublimaze) Confirm Administered Dose 250 mcg .ROUTE .STK-MED ONE Stop: 07/16/16 09:21 Fentanyl (Duragesic) 25 mcg TRDERM Q72H [facility] Last Admin: 07/20/16 09:24 Dose: 25 mcg Fentanyl (Sublimaze) Confirm Administered Dose 250 mcg .ROUTE .STK-MED ONE Stop: 07/20/16 16:45 Fentanyl (Sublimaze) Confirm Administered Dose 250 mcg .ROUTE .STK-MED ONE Stop: 07/20/16 18:24 Fentanyl (Duragesic) 25 mcg TRDERM Q72H [facility] Last Admin: 07/20/16 22:18 Dose: Not Given Fentanyl (Duragesic) 25 mcg TRDERM Q72H [facility] Fentanyl (Sublimaze) Confirm Administered Dose 100 mcg .ROUTE .STK-MED ONE Stop: 07/22/16 07:04 Glycopyrrolate () Confirm Administered Dose 1 mg .ROUTE .STK-MED ONE Stop: 07/16/16 07:27 Glycopyrrolate () Confirm Administered Dose 1 mg .ROUTE .STK-MED ONE Stop: 07/20/16 16:44 Haloperidol Lactate (Haldol) 2.5 mg IVPUSH ONETIME ONE Stop: 07/23/16 06:18 Last Admin: 07/23/16 06:26 Dose: 2.5 mg Heparin Sodium (Porcine) (Heparin Lock Flush 100 Units/Ml Syringe) Confirm Administered Dose 500 units .ROUTE .STK-MED ONE Stop: 07/20/16 17:25 Last Admin: 07/20/16 17:28 Dose: 500 units Heparin Sodium (Porcine) (Heparin Sodium) Confirm Administered Dose 5,000 units .ROUTE .STK-MED ONE Stop: 07/20/16 20:54 Last Admin: 07/20/16 21:06 Dose: 5,000 units Hydromorphone HCl (Dilaudid [employer] Partner Development Manager 15 Mg In Ns 30 Ml) 0 mg IV ASDIRECTED PRN; Protocol PRN Reason: Pain Last Admin: 07/16/16 07:37 Dose: 0.3 mg Hydromorphone HCl (Dilaudid [employer] Partner Development Manager 15 Mg In Ns 30 Ml) 0 mg IV ASDIRECTED PRN; Protocol PRN Reason: PAIN Last Admin: 07/20/16 07:38 Dose: 15 mg Hydromorphone HCl (Dilaudid [employer] Partner Development Manager 15 Mg In Ns 30 Ml) 0 mg IV ASDIRECTED PRN; Protocol PRN Reason: PAIN Last Admin: 07/21/16 07:19 Dose: 15 mg Hydroxyzine HCl (Vistaril) 100 mg IM Q4H PRN PRN Reason: Pain Last Admin: 07/20/16 14:41 Dose: 100 mg Hydroxyzine HCl (Vistaril) 50 mg IM ONETIME ONE Stop: 07/22/16 06:14 Last Admin: 07/22/16 06:29 Dose: 50 mg Clindamycin Phosphate 900 mg/ (Sodium Chloride) 106 mls @ 212 mls/hr IV ONETIME ONE Stop: 07/16/16 07:59 Last Admin: 07/16/16 07:48 Dose: 212 mls/hr Dextrose/Lactated Ringer's (Dextrose 5%-Lactated Ringers) 1,000 mls @ 100 mls/ hr IV ASDIRECTED [facility] Last Admin: 07/16/16 07:37 Dose: 100 mls/hr Lactated Ringer's (Ringers, Lactated) Confirm Administered Dose 1,000 mls @ as directed .ROUTE .ST-MED ONE Stop: 07/16/16 09:17 Dextrose/Lactated Ringer's (Dextrose 5%-Lactated Ringers) 1,000 mls @ 150 mls/ hr IV ASDIRECTED [facility] Last Admin: 07/18/16 04:26 Dose: 150 mls/hr Cefazolin Sodium 2 gm/ Sodium (Chloride) 50 mls @ 100 mls/hr IV Q8H [facility] Stop: 07/17/16 06:29 Last Admin: 07/17/16 05:08 Dose: 100 mls/hr Dextrose/Lactated Ringer's (Dextrose 5%-Lactated Ringers) 1,000 mls @ 100 mls/ hr IV ASDIRECTED [facility] Last Admin: 07/19/16 14:53 Dose: 100 mls/hr Acetaminophen 1,000 mg/ Premix 100 mls @ 400 mls/hr IV Q6H PRN PRN Reason: PAIN Stop: 07/20/16 10:30 Acetaminophen 1,000 mg/ Premix 100 mls @ 400 mls/hr IV NOW ONE Stop: 07/20/16 07:32 Last Admin: 07/20/16 07:31 Dose: 400 mls/hr Lactated Ringer's (Ringers, Lactated) 1,000 mls @ 1,000 mls/hr IV ASDIRECTED [facility] Stop: 07/20/16 09:31 Last Admin: 07/20/16 09:10 Dose: 1,000 mls/hr Levofloxacin/Dextrose 500 mg/ (Premix) 100 mls @ 100 mls/hr IV Q24H [facility] Last Admin: 07/20/16 09:22 Dose: 100 mls/hr Acetaminophen 1,000 mg/ Premix 100 mls @ 400 mls/hr IV Q6H [facility] Last Admin: 07/20/16 22:20 Dose: 400 mls/hr Lactated Ringer's (Ringers, Lactated) 1,000 mls @ 250 mls/hr IV ASDIRECTED [facility] Stop: 07/20/16 14:01 Last Admin: 07/20/16 11:04 Dose: 250 mls/hr Meropenem 1 gm/ Sodium (Chloride) 50 mls @ 100 mls/hr IV Q8H [facility] Last Admin: 07/20/16 11:41 Dose: 100 mls/hr Lactated Ringer's (Ringers, Lactated) 1,000 mls @ 999 mls/hr IV BOLUS ONE Stop: 07/20/16 17:19 Last Admin: 07/20/16 21:10 Dose: 999 mls/hr Lactated Ringer's (Ringers, Lactated) Confirm Administered Dose 1,000 mls @ as directed .ROUTE .STK-MED ONE Stop: 07/20/16 18:26 Lactated Ringer's (Ringers, Lactated) Confirm Administered Dose 1,000 mls @ as directed .ROUTE .STK-MED ONE Stop: 07/20/16 18:27 Lactated Ringer's (Ringers, Lactated) 1,000 mls @ 100 mls/hr IV ASDIRECTED [facility] Stop: 07/21/16 17:59 Last Admin: 07/21/16 07:22 Dose: 100 mls/hr Aztreonam 1 gm/ Sodium (Chloride) 50 mls @ 100 mls/hr IV Q8HR [facility] Last Admin: 07/21/16 05:06 Dose: 100 mls/hr Acetaminophen 1,000 mg/ Premix 100 mls @ 400 mls/hr IV Q6H [facility] Stop: 07/21/16 16:14 Last Admin: 07/21/16 17:12 Dose: 400 mls/hr Lactated Ringer's (Ringers, Lactated) 1,000 mls @ 40 mls/hr IV ASDIRECTED [facility] Lactated Ringer's (Ringers, Lactated) 1,000 mls @ 40 mls/hr IV ASDIRECTED [facility] Last Admin: 07/23/16 03:55 Dose: 40 mls/hr Ketorolac Tromethamine (Toradol) 60 mg IM ONETIME ONE Stop: 07/19/16 17:04 Last Admin: 07/19/16 17:30 Dose: 60 mg Lidocaine HCl (Xylocaine 2% Jelly) 10 ml MUCMEM ONETIME ONE Stop: 07/16/16 21:15 Last Admin: 07/16/16 21:41 Dose: 10 ml Lidocaine/Epinephrine (Xylocaine 1% With Epinephrine 1:100,000) Confirm Administered Dose 50 ml .ROUTE .STK-MED ONE Stop: 07/22/16 06:41 Last Admin: 07/22/16 07:34 Dose: 20 ml Lorazepam (Ativan) 0.5 - 1 mg IVPUSH Q4H PRN PRN Reason: Anxiety Losartan Potassium (Cozaar) 50 mg PO DAILY [facility] Last Admin: 07/20/16 09:21 Dose: 50 mg Magnesium Citrate (Citrate Of Magnesia) 296 ml PO ONETIME ONE Stop: 07/18/16 09:01 Last Admin: 07/18/16 10:55 Dose: 296 ml Magnesium Hydroxide (Milk Of Magnesia) 30 ml PO ONETIME ONE Stop: 07/19/16 08:46 Last Admin: 07/19/16 10:27 Dose: 30 ml Meperidine HCl (Demerol) 100 mg IM ONETIME ONE Stop: 07/20/16 16:01 Last Admin: 07/20/16 16:05 Dose: 100 mg Meperidine HCl (Demerol) 100 mg IM ONETIME ONE Stop: 07/22/16 06:14 Last Admin: 07/22/16 06:28 Dose: 100 mg Meropenem (Merrem) Confirm Administered Dose 500 mg .ROUTE .STK-MED ONE Stop: 07/16/16 06:43 Last Admin: 07/16/16 09:25 Dose: 500 mg Meropenem (Merrem) Confirm Administered Dose 2,000 mg .ROUTE .STK-MED ONE Stop: 07/20/16 17:25 Last Admin: 07/20/16 17:25 Dose: 2,000 mg Meropenem (Merrem) Confirm Administered Dose 500 mg .ROUTE .STK-MED ONE Stop: 07/22/16 06:41 Last Admin: 07/22/16 07:34 Dose: 500 mg Midazolam HCl (Versed 1 Mg/Ml) Confirm Administered Dose 2 mg .ROUTE .STK-MED ONE Stop: 07/20/16 16:46 Midazolam HCl (Versed 1 Mg/Ml) Confirm Administered Dose 2 mg .ROUTE .STK-MED ONE Stop: 07/22/16 07:04 Morphine Sulfate (Morphine [employer] Partner Development Manager 150 Mg In 30 Ml) 150 mg IV ASDIRECTED RUMA PRN Reason: Protocol Last Admin: 07/22/16 06:49 Dose: 150 mg Naloxone HCl (Narcan) 0.1 mg IV ASDIRECTED PRN PRN Reason: decreased respiratory rate Naloxone HCl (Narcan) 0.1 mg IV ASDIRECTED PRN PRN Reason: decreased respiratory rate Naloxone HCl (Narcan) Confirm Administered Dose 0.4 mg .ROUTE .STK-MED ONE Stop: 07/20/16 20:01 Naloxone HCl (Narcan) 0.1 mg IV ASDIRECTED PRN PRN Reason: decreased respiratory rate Neostigmine Methylsulfate (Neostigmine) Confirm Administered Dose 5 mg .ROUTE .STK-MED ONE Stop: 07/16/16 07:27 Neostigmine Methylsulfate (Neostigmine) Confirm Administered Dose 5 mg .ROUTE .STK-MED ONE Stop: 07/20/16 16:44 Nitroglycerin (Nitrostat) 0.4 mg SL Q5M PRN PRN Reason: CHEST PAIN Fentanyl Patch Check 0 each TOP DAILY [facility] Last Admin: 07/20/16 09:27 Dose: 1 each Fentanyl Patch Check 0 each TOP DAILY@2200 [facility] Last Admin: 07/20/16 22:19 Dose: Not Given Ondansetron HCl (Zofran) Confirm Administered Dose 4 mg .ROUTE .STK-MED ONE Stop: 07/16/16 07:27 Ondansetron HCl (Zofran) 4 mg IVPUSH Q4H PRN PRN Reason: NAUSEA Last Admin: 07/17/16 10:56 Dose: 4 mg Ondansetron HCl (Zofran) Confirm Administered Dose 4 mg .ROUTE .STK-MED ONE Stop: 07/20/16 16:44 Oxycodone/Acetaminophen (Percocet 325-5 Mg) 1 - 2 tab PO Q4H PRN PRN Reason: PAIN Last Admin: 07/20/16 03:34 Dose: 2 tab Polyethylene Glycol (Miralax) 119 gm PO ONETIME ONE Stop: 07/20/16 10:01 Last Admin: 07/20/16 09:35 Dose: 119 gm Propofol (Diprivan 20 Ml) Confirm Administered Dose 200 mg .ROUTE .STK-MED ONE Stop: 07/16/16 07:27 Propofol (Diprivan 20 Ml) Confirm Administered Dose 200 mg .ROUTE .STK-MED ONE Stop: 07/20/16 16:44 Propofol (Diprivan 20 Ml) Confirm Administered Dose 200 mg .ROUTE .STK-MED ONE Stop: 07/22/16 07:04 Rocuronium [place] (Zemuron) Confirm Administered Dose 50 mg .ROUTE .STK-MED ONE Stop: 07/16/16 07:27 Rocuronium [place] (Zemuron) Confirm Administered Dose 50 mg .ROUTE .STK-MED ONE Stop: 07/20/16 16:44 Rocuronium [place] (Zemuron) Confirm Administered Dose 50 mg .ROUTE .STK-MED ONE Stop: 07/20/16 18:24 Sodium Chloride (Saline Flush) 10 ml IV ASDIRECTED PRN PRN Reason: LINE FLUSH Succinylcholine Chloride (Succinylcholine In Ns Pf) Confirm Administered Dose 200 mg .ROUTE .STK-MED ONE Stop: 07/16/16 07:27 Succinylcholine Chloride (Succinylcholine In Ns Pf) Confirm Administered Dose 200 mg .ROUTE .STK-MED ONE Stop: 07/20/16 16:44 Tamsulosin HCl (Flomax) 0.4 mg PO BEDTIME [facility] Last Admin: 07/19/16 21:18 Dose: 0.4 mg Tamsulosin HCl (Flomax) 0.4 mg PO ONETIME ONE Stop: 07/17/16 09:01 Last Admin: 07/17/16 10:18 Dose: 0.4 mg - Exam Quality Assessment: supplemental oxygen, DVT prophylaxis General: alert, oriented, cooperative, mild distress Lungs: Clear to auscultation, Normal respiratory effort Cardiovascular: regular rate, regular rhythm, no murmurs Abdomen: bowel sounds present, soft, no tenderness, no distension Extremities: edema Skin: warm, dry, intact Consult PN Assessment/Plan Procedures: Procedures ASSAY OF TROPONIN QUANT (08/25/13) CARDIOVASCULAR STRESS TEST (11/07/14) CHEST X-RAY 1 VIEW FRONTAL (08/25/13) COMPLETE CBC W/AUTO DIFF WBC (08/25/13) COMPREHEN METABOLIC PANEL (08/25/13) ELECTROCARDIOGRAM REPORT (08/25/13) ELECTROCARDIOGRAM TRACING (08/25/13) EMERGENCY DEPT VISIT (08/25/13) EMERGENCY DEPT VISIT (08/25/13) HT MUSCLE IMAGE SPECT MULT (11/07/14) INITIAL OBSERVATION CARE (08/25/13) METABOLIC PANEL TOTAL CA (08/25/13) OBSERVATION CARE DISCHARGE (08/25/13) ROUTINE VENIPUNCTURE (08/25/13) THER/PROPH/DIAG INJ IV PUSH (08/25/13) TX/PRO/DX INJ NEW DRUG ADDON (08/25/13) Problem List Initiated/Reviewed/Updated: Yes Plan: ASSESSMENT AND RECOMMENDATIONS SEPSIS SECONDARY TO INTESTINAL PERFORATION-status post delayed primary closure done earlier today, mildly tachycardic but otherwise hemodynamically stable and afebrile. Not yet passing gas and has not yet had a bowel movement. -Postoperative care per Dr. Youngblood -Blood cultures are pending -Empiric IV antibiotics with meropenem and levofloxacin ACUTE KIDNEY INJURY-likely secondary to hypotension related to sepsis, renal function has slowly improved following most recent surgery -Continue to monitor urine output and renal function closely STATUS POST ABDOMINAL WALL HERNIA REPAIR CORONARY ARTERY DISEASE-no symptoms of chest pain or pressure, EKG showed no acute ST segment changes in troponin level is within normal range
--- NOTE | 2016-07-23 09:41 | PN ---
DATE OF SERVICE: 07/22/2016 The patient is running a temperature in the 99 range through the 24-hour period. The heart rates are running right around 100. Blood pressures at times have been somewhat high, and I think we will add some losartan back to the equation today. Urine output has been satisfactory at 1550. Pain control is somewhat poor at the moment, and we will switch him over to morphine [employer] SUPERVISOR, as he seems to be afraid to use the Dilaudid [employer]ANSFORMER [employer]SEMBLY SUPERVISOR causing some hallucinations and such. Also increased fentanyl patch to 50 mcg per hour. When he woke up this morning, he was quite a bit behind in terms of the pain control. Otherwise, restart the losartan and BuSpar, cramping the G tube for half hour after that. We will let him have some clear liquids after the wound closure, although he will still be to drainage with regard to the stomach. The labs show creatinine is same as yesterday at 2.2. With the urine output at 1550, that should likely improve over the next few days. We will leave the IV rate running at the present. His albumin is quite low, and we will begin supplementing that as well. Otherwise, once we get pain control, the wound closure completed. We will maximize activity and work with pulmonary toilet. Sg Youngblood MD /[id number]
[2016-07-23] MEDS: 1: AA 5%/Calcium/D15W/Lytes 1,000 ML with MVI, Adult with Vitamin K 10 ML, Chromium/Copp IV SCH ×6 (10:23→22:44)
[2016-07-23] MEDS: LORazepam 2 MG/ML MDV IVPUSH PRN ×2 (12:44→16:53)
[2016-07-23] MEDS: VERIFY FENTANYL PATCH TOP SCH ×2 (12:55→20:35)
[2016-07-23] MEDS: Haloperidol Lactate 5 MG/ML SDV IVPUSH PRN ×2 (14:58→18:10)
[2016-07-23] MEDS: Pantoprazole 40 MG Vial IV SCH (20:36)
[2016-07-23] MEDS: Acetaminophen 1,000 MG in Premix Bag 1 BAG IV PRN (23:43)
[2016-07-24] MEDS: Furosemide 20 MG/2 ML VIAL IVPUSH SCH ×3 (00:45→15:59)
[2016-07-24] MEDS: Labetalol 20 MG/4 ML Syringe IV PRN ×4 (03:12→20:22)
[2016-07-24] MEDS: Meropenem 500 MG in Sodium Chloride 0.9% 50 ML IV SCH ×3 (05:16→22:09)
[2016-07-24] MEDS: Aztreonam/Dextrose-Water 1 GM in Premix Bag 1 BAG IV SCH ×3 (05:51→21:36)
[2016-07-24] MEDS: Acetaminophen 1,000 MG in Premix Bag 1 BAG IV PRN ×2 (06:25→20:14)
[2016-07-24] MEDS: Albuterol/Ipratropium 3.0-0.5 MG/3 ML Neb Soln INH SCH ×4 (07:01→21:32)
[2016-07-24] MEDS ORDERED: Potassium Chloride 40 MEQ in Premix Bag 1 BAG IV ONE (08:30)
[2016-07-24] MEDS ORDERED: Tamsulosin 0.4 MG Cap.ER PO ONE (08:30)
[2016-07-24] MEDS: Albumin 25% 12.5 GM in Premix Bag 1 BAG IV SCH ×4 (09:00→14:55)
[2016-07-24] MEDS: VERIFY FENTANYL PATCH TOP SCH ×2 (09:04→23:12)
[2016-07-24] MEDS: busPIRone 5 MG Tab PO SCH ×2 (09:06→21:32)
[2016-07-24] MEDS: Losartan 50 MG Tab PO SCH (09:06)
[2016-07-24] MEDS: 1: AA 5%/Calcium/D15W/Lytes 1,000 ML with MVI, Adult with Vitamin K 10 ML, Chromium/Copp IV SCH ×6 (11:16→23:50)
--- NOTE | 2016-07-24 11:56 | PCM.CONSN ---
- General Info Date of Service: 07/24/16 Functional Status: Reports: pain controlled, tolerating diet, ambulating - Review of Systems General: Reports: fever, weakness. Denies: fatigue, malaise, chills Pulmonary: Reports: no symptoms Cardiovascular: Reports: no symptoms Gastrointestinal: Reports: Abdominal pain. Denies: Difficulty swallowing, Flatus, Nausea, Vomiting Systems Review Comment:: This patient has been very lethargic and confused, likely secondary to current pain medication including a 50 mcg fentanyl patch. He's had low-grade temperature elevation during the night and further increase in his white blood cell count. Oral intake seems to be going well with clear liquids, is not yet passing gas. - Patient Data Vitals - most recent: Last Vital Signs Temp 99.5 F 07/24/16 08:00 Pulse 85 07/24/16 10:00 Resp 19 07/24/16 10:00 BP 162/93 H 07/24/16 10:00 Pulse Ox 95 07/24/16 10:00 Weight - most recent: 246 lb 12.8 oz I&O - last 24 hours: Intake & Output 07/23/16 07/24/16 07/24/16 22:59 06:59 14:59 Intake Total 1548 1558 120 Output Total 3812 2650 1800 Balance -5677 -4792 -5910 Lab Results last 24 hrs: Laboratory Results - last 24 hr 07/24/16 07/24/16 Range/Units 04:30 04:30 WBC 16.5 H (4.5-11.0) K/uL RBC 4.38 (4.30-5.90) M/uL Hgb 12.8 (12.0-15.0) g/dL Hct 39.6 L (40.0-54.0) % MCV 90 (80-98) fL MCH 29 (27-31) pg MCHC 32 (32-36) % Plt Count 216 (150-400) K/uL Sodium 147 (140-148) mmol/L Potassium 3.5 L (3.6-5.2) mmol/L Chloride 107 (100-108) mmol/L Carbon Dioxide 37 H (21-32) mmol/L Anion Gap 6.5 (5.0-14.0) mmol/L BUN 48 H (7-18) mg/dL Creatinine 1.8 H (0.8-1.3) mg/dL Est Cr Clr Drug Dosing 43.48 mL/min Estimated GFR (MDRD) 38 L (>60) Glucose 131 H (74-106) mg/dL Calcium 8.5 (8.5-10.1) mg/dL Phosphorus 5.7 H (2.5-4.9) mg/dL Magnesium 2.0 D (1.8-2.4) mg/dL Total Bilirubin 0.8 D (0.2-1.0) mg/dL AST 68 H (15-37) U/L ALT 64 (12-78) U/L Alkaline Phosphatase 32 L (46-116) U/L [id number] Pept 1239 H (5-125) pg/mL Total Protein 5.9 L (6.4-8.2) g/dL Albumin 2.4 L (3.4-5.0) g/dL Globulin 3.5 (2.3-3.5) g/dL Albumin/Globulin Ratio 0.7 L (1.2-2.2) Boby Results last 24 hrs: Microbiology 07/20/16 07:45 Aerobic Blood Culture - Preliminary Blood - Venous - Lab Draw NO GROWTH AFTER 4 DAYS Anaerobic Blood Culture - Preliminary NO GROWTH AFTER 4 DAYS 07/20/16 07:40 Aerobic Blood Culture - Preliminary Blood - Arm, Left NO GROWTH AFTER 4 DAYS Anaerobic Blood Culture - Preliminary NO GROWTH AFTER 4 DAYS 07/20/16 18:22 Gram Stain - Final Peritoneal Fluid Wound Culture - Final Enterococcus Faecalis Escherichia Coli Anaerobic Culture - Final NO GROWTH AFTER 3 DAYS Med Orders - Current: Current Medications Albuterol/Ipratropium (Duoneb 3.0-0.5 Mg/3 Ml) 3 ml INH QIDRT [facility] Last Admin: 07/24/16 10:33 Dose: 3 ml Albuterol/Ipratropium (Duoneb 3.0-0.5 Mg/3 Ml) 3 ml INH ASDIRECTED PRN PRN Reason: * Last Admin: 07/23/16 23:50 Dose: 3 ml Buspirone HCl (Buspar) 15 mg PO DAILY [facility] Last Admin: 07/24/16 09:06 Dose: 15 mg Buspirone HCl (Buspar) 7.5 mg PO BEDTIME [facility] Last Admin: 07/23/16 20:34 Dose: 7.5 mg Fentanyl (Duragesic) 50 mcg TRDERM Q72H [facility] Last Admin: 07/22/16 09:40 Dose: 50 mcg Furosemide (Lasix) 20 mg IVPUSH Q8H [facility] Last Admin: 07/24/16 07:38 Dose: 20 mg Haloperidol Lactate (Haldol) 2.5 mg IVPUSH Q1H PRN PRN Reason: PSYCHOSIS/ANXIETY Last Admin: 07/23/16 18:10 Dose: 2.5 mg Heparin Sodium (Porcine) (Heparin Lock Flush 100 Units/Ml Syringe) 500 units FLUSH ASDIRECTED PRN PRN Reason: IV Use Hydroxyzine HCl (Vistaril) 100 mg IM Q4H PRN PRN Reason: PAIN Last Admin: 07/22/16 03:57 Dose: 100 mg Meropenem 500 mg/ Sodium (Chloride) 50 mls @ 100 mls/hr IV Q8H [facility] Last Admin: 07/24/16 05:16 Dose: 100 mls/hr Aztreonam/Dextrose 1 gm/ (Premix) 50 mls @ 100 mls/hr IV Q8HR [facility] Last Admin: 07/24/16 05:51 Dose: 100 mls/hr Albumin Human 12.5 gm/ Premix 50 mls @ 25 mls/hr IV Q24H [facility] Stop: 07/26/16 10:59 Last Admin: 07/24/16 09:00 Dose: 25 mls/hr Albumin Human 12.5 gm/ Premix 50 mls @ 25 mls/hr IV Q24H [facility] Stop: 07/26/16 12:59 Last Admin: 07/24/16 11:16 Dose: 25 mls/hr Albumin Human 12.5 gm/ Premix 50 mls @ 25 mls/hr IV Q24H [facility] Stop: 07/26/16 14:59 Last Admin: 07/23/16 12:44 Dose: 25 mls/hr Albumin Human 12.5 gm/ Premix 50 mls @ 25 mls/hr IV Q24H [facility] Stop: 07/26/16 16:59 Last Admin: 07/23/16 14:03 Dose: 25 mls/hr Lactated Ringer's (Ringers, Lactated) 1,000 mls @ 0 mls/hr IV ASDIRECTED [facility] PRN Reason: KVO Acetaminophen 1,000 mg/ Premix 100 mls @ 400 mls/hr IV Q6H PRN PRN Reason: Pain Stop: 07/24/16 23:18 Last Admin: 07/24/16 06:25 Dose: 400 mls/hr Potassium Chloride 40 meq/ (Premix) 100 mls @ 25 mls/hr IV ONETIME ONE Stop: 07/24/16 12:29 Last Admin: 07/24/16 08:56 Dose: 25 mls/hr Potassium Chloride 20 meq/ (Premix) 100 mls @ 50 mls/hr IV ONETIME ONE Stop: 07/24/16 14:59 Multivitamins/Minerals 10 ml/Chromium/Copper/Manganese/Seleni/Zn 1 ml/ Amino Ac/ Electrol/Dextrose/Calcium 1,011 mls @ 82 mls/hr IV .BY DURATION [facility] Last Admin: 07/24/16 11:16 Dose: 82 mls/hr Amino Ac/Electrol/Dextrose/Calcium (Clinimix E 5/15) 1,000 mls @ 82 mls/hr IV .BY DURATION [facility] Labetalol HCl (Normodyne) 5 - 10 mg IV Q2H PRN PRN Reason: BP Last Admin: 07/24/16 06:57 Dose: 10 mg Lorazepam (Ativan) 0.5 mg IVPUSH Q2H PRN PRN Reason: Anxiety Last Admin: 07/23/16 16:53 Dose: 0.5 mg Losartan Potassium (Cozaar) 50 mg PO DAILY [facility] Last Admin: 07/24/16 09:06 Dose: 50 mg Morphine Sulfate (Morphine Box Toe Cutter 150 Mg In 30 Ml) 0 mg IV ASDIRECTED PRN; Protocol PRN Reason: PAIN Naloxone HCl (Narcan) 0.1 mg IV ASDIRECTED PRN PRN Reason: decreased respiratory rate Nitroglycerin (Nitrostat) 0.4 mg SL Q5M PRN PRN Reason: CHEST PAIN Verify Fentanyl (Patch) 0 each TOP BID [facility] Last Admin: 07/24/16 09:04 Dose: Not Given Ondansetron HCl (Zofran) 4 mg IVPUSH Q4H PRN PRN Reason: NAUSEA Pantoprazole Sodium (Protonix Iv) 40 mg IV Q24H [facility] Last Admin: 07/23/16 20:36 Dose: 40 mg Tamsulosin HCl (Flomax) 0.4 mg PO BEDTIME [facility] Discontinued Medications Albuterol (Proventil Neb Soln) 2.5 mg NEB Q4H PRN PRN Reason: Dyspnea Last Admin: 07/20/16 16:13 Dose: 2.5 mg Bacitracin (Bacitracin Oint) 0 gm TOP TID [facility] Last Admin: 07/20/16 13:58 Dose: 1 applic Bisacodyl (Dulcolax) 10 mg PO BID [facility] Last Admin: 07/20/16 09:22 Dose: 10 mg Bisacodyl (Dulcolax) 10 mg RECTAL BID PRN PRN Reason: Constipation Last Admin: 07/19/16 17:31 Dose: 10 mg Bupivacaine HCl (Marcaine 0.5%) Confirm Administered Dose 50 ml .ROUTE .STK-MED ONE Stop: 07/22/16 06:41 Last Admin: 07/22/16 07:34 Dose: 20 ml Bupivacaine HCl/Epinephrine Bitart (Marcaine 0.5%/Epinephrine 1:200,000) Confirm Administered Dose 50 ml .ROUTE .STK-MED ONE Stop: 07/16/16 06:43 Last Admin: 07/16/16 07:28 Dose: 10 ml Buspirone HCl (Buspar) 15 mg PO DAILY [facility] Last Admin: 07/20/16 09:21 Dose: 15 mg Buspirone HCl (Buspar) 7.5 mg PO QPM [facility] Last Admin: 07/20/16 17:57 Dose: Not Given Dexamethasone (Dexamethasone) Confirm Administered Dose 4 mg .ROUTE .STK-MED ONE Stop: 07/16/16 07:27 Dexamethasone (Dexamethasone) Confirm Administered Dose 4 mg .ROUTE .STK-MED ONE Stop: 07/20/16 16:44 Diatrizoate Meglum/Diatrizoate Sod (Gastrografin 37%) 1,200 ml .XX . DIRECTED [facility] Stop: 07/20/16 14:16 Last Admin: 07/20/16 15:27 Dose: 1,200 ml Fentanyl (Sublimaze) Confirm Administered Dose 500 mcg .ROUTE .STK-MED ONE Stop: 07/16/16 07:27 Fentanyl (Sublimaze) Confirm Administered Dose 250 mcg .ROUTE .STK-MED ONE Stop: 07/16/16 09:21 Fentanyl (Duragesic) 25 mcg TRDERM Q72H [facility] Last Admin: 07/20/16 09:24 Dose: 25 mcg Fentanyl (Sublimaze) Confirm Administered Dose 250 mcg .ROUTE .STK-MED ONE Stop: 07/20/16 16:45 Fentanyl (Sublimaze) Confirm Administered Dose 250 mcg .ROUTE .STK-MED ONE Stop: 07/20/16 18:24 Fentanyl (Duragesic) 25 mcg TRDERM Q72H [facility] Last Admin: 07/20/16 22:18 Dose: Not Given Fentanyl (Duragesic) 25 mcg TRDERM Q72H [facility] Fentanyl (Sublimaze) Confirm Administered Dose 100 mcg .ROUTE .STK-MED ONE Stop: 07/22/16 07:04 Glycopyrrolate () Confirm Administered Dose 1 mg .ROUTE .STK-MED ONE Stop: 07/16/16 07:27 Glycopyrrolate () Confirm Administered Dose 1 mg .ROUTE .STK-MED ONE Stop: 07/20/16 16:44 Haloperidol Lactate (Haldol) 2.5 mg IVPUSH ONETIME ONE Stop: 07/23/16 06:18 Last Admin: 07/23/16 06:26 Dose: 2.5 mg Heparin Sodium (Porcine) (Heparin Lock Flush 100 Units/Ml Syringe) Confirm Administered Dose 500 units .ROUTE .STK-MED ONE Stop: 07/20/16 17:25 Last Admin: 07/20/16 17:28 Dose: 500 units Heparin Sodium (Porcine) (Heparin Sodium) Confirm Administered Dose 5,000 units .ROUTE .STK-MED ONE Stop: 07/20/16 20:54 Last Admin: 07/20/16 21:06 Dose: 5,000 units Hydromorphone HCl (Dilaudid Box Toe Cutter 15 Mg In Ns 30 Ml) 0 mg IV ASDIRECTED PRN; Protocol PRN Reason: Pain Last Admin: 07/16/16 07:37 Dose: 0.3 mg Hydromorphone HCl (Dilaudid Box Toe Cutter 15 Mg In Ns 30 Ml) 0 mg IV ASDIRECTED PRN; Protocol PRN Reason: PAIN Last Admin: 07/20/16 07:38 Dose: 15 mg Hydromorphone HCl (Dilaudid Box Toe Cutter 15 Mg In Ns 30 Ml) 0 mg IV ASDIRECTED PRN; Protocol PRN Reason: PAIN Last Admin: 07/21/16 07:19 Dose: 15 mg Hydroxyzine HCl (Vistaril) 100 mg IM Q4H PRN PRN Reason: Pain Last Admin: 07/20/16 14:41 Dose: 100 mg Hydroxyzine HCl (Vistaril) 50 mg IM ONETIME ONE Stop: 07/22/16 06:14 Last Admin: 07/22/16 06:29 Dose: 50 mg Clindamycin Phosphate 900 mg/ (Sodium Chloride) 106 mls @ 212 mls/hr IV ONETIME ONE Stop: 07/16/16 07:59 Last Admin: 07/16/16 07:48 Dose: 212 mls/hr Dextrose/Lactated Ringer's (Dextrose 5%-Lactated Ringers) 1,000 mls @ 100 mls/ hr IV ASDIRECTED [facility] Last Admin: 07/16/16 07:37 Dose: 100 mls/hr Lactated Ringer's (Ringers, Lactated) Confirm Administered Dose 1,000 mls @ as directed .ROUTE .STK-MED ONE Stop: 07/16/16 09:17 Dextrose/Lactated Ringer's (Dextrose 5%-Lactated Ringers) 1,000 mls @ 150 mls/ hr IV ASDIRECTED [facility] Last Admin: 07/18/16 04:26 Dose: 150 mls/hr Cefazolin Sodium 2 gm/ Sodium (Chloride) 50 mls @ 100 mls/hr IV Q8H [facility] Stop: 07/17/16 06:29 Last Admin: 07/17/16 05:08 Dose: 100 mls/hr Dextrose/Lactated Ringer's (Dextrose 5%-Lactated Ringers) 1,000 mls @ 100 mls/ hr IV ASDIRECTED [facility] Last Admin: 07/19/16 14:53 Dose: 100 mls/hr Acetaminophen 1,000 mg/ Premix 100 mls @ 400 mls/hr IV Q6H PRN PRN Reason: PAIN Stop: 07/20/16 10:30 Acetaminophen 1,000 mg/ Premix 100 mls @ 400 mls/hr IV NOW ONE Stop: 07/20/16 07:32 Last Admin: 07/20/16 07:31 Dose: 400 mls/hr Lactated Ringer's (Ringers, Lactated) 1,000 mls @ 1,000 mls/hr IV ASDIRECTED [facility] Stop: 07/20/16 09:31 Last Admin: 07/20/16 09:10 Dose: 1,000 mls/hr Levofloxacin/Dextrose 500 mg/ (Premix) 100 mls @ 100 mls/hr IV Q24H [facility] Last Admin: 07/20/16 09:22 Dose: 100 mls/hr Acetaminophen 1,000 mg/ Premix 100 mls @ 400 mls/hr IV Q6H [facility] Last Admin: 07/20/16 22:20 Dose: 400 mls/hr Lactated Ringer's (Ringers, Lactated) 1,000 mls @ 250 mls/hr IV ASDIRECTED [facility] Stop: 07/20/16 14:01 Last Admin: 07/20/16 11:04 Dose: 250 mls/hr Meropenem 1 gm/ Sodium (Chloride) 50 mls @ 100 mls/hr IV Q8H [facility] Last Admin: 07/20/16 11:41 Dose: 100 mls/hr Lactated Ringer's (Ringers, Lactated) 1,000 mls @ 999 mls/hr IV BOLUS ONE Stop: 07/20/16 17:19 Last Admin: 07/20/16 21:10 Dose: 999 mls/hr Lactated Ringer's (Ringers, Lactated) Confirm Administered Dose 1,000 mls @ as directed .ROUTE .STK-MED ONE Stop: 07/20/16 18:26 Lactated Ringer's (Ringers, Lactated) Confirm Administered Dose 1,000 mls @ as directed .ROUTE .STK-MED ONE Stop: 07/20/16 18:27 Dextrose/Lactated Ringer's (Dextrose 5%-Lactated Ringers) 1,000 mls @ 100 mls/ hr IV ASDIRECTED [facility] Stop: 07/23/16 09:59 Last Admin: 07/23/16 00:19 Dose: 100 mls/hr Lactated Ringer's (Ringers, Lactated) 1,000 mls @ 100 mls/hr IV ASDIRECTED [facility] Stop: 07/21/16 17:59 Last Admin: 07/21/16 07:22 Dose: 100 mls/hr Aztreonam 1 gm/ Sodium (Chloride) 50 mls @ 100 mls/hr IV Q8HR [facility] Last Admin: 07/21/16 05:06 Dose: 100 mls/hr Acetaminophen 1,000 mg/ Premix 100 mls @ 400 mls/hr IV Q6H [facility] Stop: 07/21/16 16:14 Last Admin: 07/21/16 17:12 Dose: 400 mls/hr Lactated Ringer's (Ringers, Lactated) 1,000 mls @ 40 mls/hr IV ASDIRECTED [facility] Lactated Ringer's (Ringers, Lactated) 1,000 mls @ 40 mls/hr IV ASDIRECTED [facility] Last Admin: 07/23/16 03:55 Dose: 40 mls/hr Multivitamins/Minerals 10 ml/Chromium/Copper/Manganese/Seleni/Zn 1 ml/ Amino Ac/ Electrol/Dextrose/Calcium 1,011 mls @ 82 mls/hr IV .BY DURATION [facility] Last Admin: 07/23/16 10:23 Dose: 82 mls/hr Amino Ac/Electrol/Dextrose/Calcium (Clinimix E 5/15) 1,000 mls @ 82 mls/hr IV .BY DURATION [facility] Last Admin: 07/23/16 22:44 Dose: 82 mls/hr Ketorolac Tromethamine (Toradol) 60 mg IM ONETIME ONE Stop: 07/19/16 17:04 Last Admin: 07/19/16 17:30 Dose: 60 mg Lidocaine HCl (Xylocaine 2% Jelly) 10 ml MUCMEM ONETIME ONE Stop: 07/16/16 21:15 Last Admin: 07/16/16 21:41 Dose: 10 ml Lidocaine/Epinephrine (Xylocaine 1% With Epinephrine 1:100,000) Confirm Administered Dose 50 ml .ROUTE .STK-MED ONE Stop: 07/22/16 06:41 Last Admin: 07/22/16 07:34 Dose: 20 ml Lorazepam (Ativan) 0.5 - 1 mg IVPUSH Q4H PRN PRN Reason: Anxiety Losartan Potassium (Cozaar) 50 mg PO DAILY [facility] Last Admin: 07/20/16 09:21 Dose: 50 mg Magnesium Citrate (Citrate Of Magnesia) 296 ml PO ONETIME ONE Stop: 07/18/16 09:01 Last Admin: 07/18/16 10:55 Dose: 296 ml Magnesium Hydroxide (Milk Of Magnesia) 30 ml PO ONETIME ONE Stop: 07/19/16 08:46 Last Admin: 07/19/16 10:27 Dose: 30 ml Meperidine HCl (Demerol) 100 mg IM ONETIME ONE Stop: 07/20/16 16:01 Last Admin: 07/20/16 16:05 Dose: 100 mg Meperidine HCl (Demerol) 100 mg IM ONETIME ONE Stop: 07/22/16 06:14 Last Admin: 07/22/16 06:28 Dose: 100 mg Meropenem (Merrem) Confirm Administered Dose 500 mg .ROUTE .STK-MED ONE Stop: 07/16/16 06:43 Last Admin: 07/16/16 09:25 Dose: 500 mg Meropenem (Merrem) Confirm Administered Dose 2,000 mg .ROUTE .STK-MED ONE Stop: 07/20/16 17:25 Last Admin: 07/20/16 17:25 Dose: 2,000 mg Meropenem (Merrem) Confirm Administered Dose 500 mg .ROUTE .STK-MED ONE Stop: 07/22/16 06:41 Last Admin: 07/22/16 07:34 Dose: 500 mg Midazolam HCl (Versed 1 Mg/Ml) Confirm Administered Dose 2 mg .ROUTE .STK-MED ONE Stop: 07/20/16 16:46 Midazolam HCl (Versed 1 Mg/Ml) Confirm Administered Dose 2 mg .ROUTE .STK-MED ONE Stop: 07/22/16 07:04 Morphine Sulfate (Morphine Box Toe Cutter 150 Mg In 30 Ml) 150 mg IV ASDIRECTED [facility] PRN Reason: Protocol Last Admin: 07/22/16 06:49 Dose: 150 mg Naloxone HCl (Narcan) 0.1 mg IV ASDIRECTED PRN PRN Reason: decreased respiratory rate Naloxone HCl (Narcan) 0.1 mg IV ASDIRECTED PRN PRN Reason: decreased respiratory rate Naloxone HCl (Narcan) Confirm Administered Dose 0.4 mg .ROUTE .STK-MED ONE Stop: 07/20/16 20:01 Naloxone HCl (Narcan) 0.1 mg IV ASDIRECTED PRN PRN Reason: decreased respiratory rate Neostigmine Methylsulfate (Neostigmine) Confirm Administered Dose 5 mg .ROUTE .STK-MED ONE Stop: 07/16/16 07:27 Neostigmine Methylsulfate (Neostigmine) Confirm Administered Dose 5 mg .ROUTE .STK-MED ONE Stop: 07/20/16 16:44 Nitroglycerin (Nitrostat) 0.4 mg SL Q5M PRN PRN Reason: CHEST PAIN Fentanyl Patch Check 0 each TOP DAILY [facility] Last Admin: 07/20/16 09:27 Dose: 1 each Fentanyl Patch Check 0 each TOP DAILY@2200 [facility] Last Admin: 07/20/16 22:19 Dose: Not Given Ondansetron HCl (Zofran) Confirm Administered Dose 4 mg .ROUTE .STK-MED ONE Stop: 07/16/16 07:27 Ondansetron HCl (Zofran) 4 mg IVPUSH Q4H PRN PRN Reason: NAUSEA Last Admin: 07/17/16 10:56 Dose: 4 mg Ondansetron HCl (Zofran) Confirm Administered Dose 4 mg .ROUTE .STK-MED ONE Stop: 07/20/16 16:44 Oxycodone/Acetaminophen (Percocet 325-5 Mg) 1 - 2 tab PO Q4H PRN PRN Reason: PAIN Last Admin: 07/20/16 03:34 Dose: 2 tab Polyethylene Glycol (Miralax) 119 gm PO ONETIME ONE Stop: 07/20/16 10:01 Last Admin: 07/20/16 09:35 Dose: 119 gm Propofol (Diprivan 20 Ml) Confirm Administered Dose 200 mg .ROUTE .STK-MED ONE Stop: 07/16/16 07:27 Propofol (Diprivan 20 Ml) Confirm Administered Dose 200 mg .ROUTE .STK-MED ONE Stop: 07/20/16 16:44 Propofol (Diprivan 20 Ml) Confirm Administered Dose 200 mg .ROUTE .STK-MED ONE Stop: 07/22/16 07:04 Rocuronium [place] (Zemuron) Confirm Administered Dose 50 mg .ROUTE .STK-MED ONE Stop: 07/16/16 07:27 Rocuronium [place] (Zemuron) Confirm Administered Dose 50 mg .ROUTE .STK-MED ONE Stop: 07/20/16 16:44 Rocuronium [place] (Zemuron) Confirm Administered Dose 50 mg .ROUTE .STK-MED ONE Stop: 07/20/16 18:24 Sodium Chloride (Saline Flush) 10 ml IV ASDIRECTED PRN PRN Reason: LINE FLUSH Succinylcholine Chloride (Succinylcholine In Ns Pf) Confirm Administered Dose 200 mg .ROUTE .STK-MED ONE Stop: 07/16/16 07:27 Succinylcholine Chloride (Succinylcholine In Ns Pf) Confirm Administered Dose 200 mg .ROUTE .STK-MED ONE Stop: 07/20/16 16:44 Tamsulosin HCl (Flomax) 0.4 mg PO BEDTIME [facility] Last Admin: 07/19/16 21:18 Dose: 0.4 mg Tamsulosin HCl (Flomax) 0.4 mg PO ONETIME ONE Stop: 07/17/16 09:01 Last Admin: 07/17/16 10:18 Dose: 0.4 mg Tamsulosin HCl (Flomax) 0.4 mg PO ONETIME ONE Stop: 07/24/16 08:31 Last Admin: 07/24/16 09:06 Dose: 0.4 mg - Exam Quality Assessment: supplemental oxygen, urine catheter, DVT prophylaxis General: sedated, lethargic Lungs: Clear to auscultation, Normal respiratory effort Cardiovascular: regular rate, regular rhythm, no murmurs Abdomen: soft, tenderness. No: rigidity, rebound, guarding, distension Extremities: no edema Skin: warm, dry, intact Consult PN Assessment/Plan Procedures: Procedures ASSAY OF TROPONIN QUANT (08/25/13) CARDIOVASCULAR STRESS TEST (11/07/14) CHEST X-RAY 1 VIEW FRONTAL (08/25/13) COMPLETE CBC W/AUTO DIFF WBC (08/25/13) COMPREHEN METABOLIC PANEL (08/25/13) ELECTROCARDIOGRAM REPORT (08/25/13) ELECTROCARDIOGRAM TRACING (08/25/13) EMERGENCY DEPT VISIT (08/25/13) EMERGENCY DEPT VISIT (08/25/13) HT MUSCLE IMAGE SPECT MULT (11/07/14) INITIAL OBSERVATION CARE (08/25/13) METABOLIC PANEL TOTAL CA (08/25/13) OBSERVATION CARE DISCHARGE (08/25/13) ROUTINE VENIPUNCTURE (08/25/13) THER/PROPH/DIAG INJ IV PUSH (08/25/13) TX/PRO/DX INJ NEW DRUG ADDON (08/25/13) Problem List Initiated/Reviewed/Updated: Yes My Orders last 24 hours: My Active Orders 07/24/16 11:29 Abdomen Pelvis wo Cont [CT] Stat Plan: ASSESSMENT AND RECOMMENDATIONS SEPSIS SECONDARY TO INTESTINAL PERFORATION-status post delayed primary closure done yesterday, hemodynamically stable, mild temperature elevation during the night. White blood cell count has increased to 16,500 -CT scan of the abdomen and pelvis to rule out developing abscess -Postoperative care per Dr. Youngblood -Blood cultures are pending -Empiric IV antibiotics with meropenem and levofloxacin ACUTE KIDNEY INJURY-likely secondary to hypotension related to sepsis, renal function has slowly improved following most recent surgery -Continue to monitor urine output and renal function closely STATUS POST ABDOMINAL WALL HERNIA REPAIR CORONARY ARTERY DISEASE-asymptomatic
[2016-07-24] MEDS ORDERED: Potassium Chloride 20 MEQ in Premix Bag 1 BAG IV ONE (13:00)
--- NOTE | 2016-07-24 16:34 | OR ---
DATE OF PROCEDURE: 07/22/2016 PREOPERATIVE DIAGNOSIS: Open abdominal incision. POSTOPERATIVE DIAGNOSIS: Open abdominal incision. PROCEDURE: Delayed primary closure of open abdominal incision. ANESTHESIA: Local plus IV sedation. INDICATION FOR PROCEDURE: The patient is 48 hours status post an open laparotomy in which there was significant GI tract contamination of the abdominal wall. Given this at the time closure of the wound, it was felt to be a high risk wound infection if primary closure was undertaken, so it was packed open. Plan is to proceed with delayed primary closure at this time. Potential risks including bleeding and infection were reviewed, and the patient wishes to proceed. DETAILS OF PROCEDURE: The patient was taken to the operating room and placed in a supine position with roughly 30-degree upward positioning of his head. After IV sedation was administered, the dressing was taken down and found to be clean and the area then anesthetized with 1% lidocaine mixed with Marcaine after being prepped and draped. It was irrigated then with a meropenem-containing saline solution. A Ricky-Corona drain was placed along the inferior aspect of the incision and the incision was then closed with layers of 3-0 and 4-0 Vicryl stitch deep, and then jarret for the skin. The drain was affixed with some 3-0 Vicryl stitch. The patient was taken to the recovery room in satisfactory condition. There were no evident complications. Sg Youngblood MD /[id number]
[2016-07-24] MEDS ORDERED: Lactated Ringers 1,000 ML IV SCH (20:00)
[2016-07-24] MEDS: Pantoprazole 40 MG Vial IV SCH (21:32)
[2016-07-24] MEDS: Tamsulosin 0.4 MG Cap.ER PO SCH (21:32)
[2016-07-25] MEDS: Labetalol 20 MG/4 ML Syringe IV PRN ×2 (01:19→05:19)
[2016-07-25] MEDS ORDERED: Labetalol 20 MG/4 ML Syringe ONE (05:15)
[2016-07-25] MEDS: Acetaminophen 1,000 MG in Premix Bag 1 BAG IV PRN ×3 (05:20→22:12)
[2016-07-25] MEDS: Meropenem 500 MG in Sodium Chloride 0.9% 50 ML IV SCH ×3 (05:48→22:04)
[2016-07-25] MEDS: Aztreonam/Dextrose-Water 1 GM in Premix Bag 1 BAG IV SCH (05:52)
[2016-07-25] MEDS: Albuterol/Ipratropium 3.0-0.5 MG/3 ML Neb Soln INH SCH ×4 (07:01→20:56)
[2016-07-25] MEDS: Albumin 25% 12.5 GM in Premix Bag 1 BAG IV SCH ×4 (08:16→15:22)
[2016-07-25] MEDS: Losartan 50 MG Tab PO SCH (08:51)
[2016-07-25] MEDS: busPIRone 5 MG Tab PO SCH ×2 (08:51→20:55)
--- NOTE | 2016-07-25 10:50 | PCM.CONSN ---
- General Info Date of Service: 07/25/16 Functional Status: Reports: pain controlled, tolerating diet, ambulating - Review of Systems General: Reports: fever, weakness. Denies: chills Pulmonary: Reports: no symptoms Cardiovascular: Reports: no symptoms Gastrointestinal: Reports: Abdominal pain, Flatus. Denies: Diarrhea, Difficulty swallowing, Nausea, Vomiting Systems Review Comment:: Patient has been doing well over the past 24 hours, tolerating clear liquid diet and now it started passing gas. He's been been able to be somewhat more active, reports current pain control is adequate. Off of the fentanyl patch he is more alert and interactive. Continues to have some low-grade temperature elevations which are likely secondary to atelectasis. White count up further from yesterday, culture results from surgery are growing enterococcus and Escherichia coli. Chest x-ray obtained today did show evidence of a left pleural effusion with atelectasis but no obvious infiltrate, urinalysis is clear showing no evidence of active infection, CT scan of the abdomen obtained yesterday shows no obvious source of intra-abdominal infection. - Patient Data Vitals - most recent: Last Vital Signs Temp 100.4 F 07/25/16 06:00 Pulse 79 07/25/16 08:00 Resp 18 07/25/16 08:00 BP 161/84 H 07/25/16 08:00 Pulse Ox 95 07/25/16 08:00 Weight - most recent: 241 lb 9.6 oz I&O - last 24 hours: Intake & Output 07/24/16 07/25/16 07/25/16 21:59 06:59 14:59 Intake Total Output Total Balance Lab Results last 24 hrs: Laboratory Results - last 24 hr 07/25/16 07/25/16 07/25/16 Range/Units 04:15 04:15 09:07 WBC 19.7 H (4.5-11.0) K/uL RBC 4.38 (4.30-5.90) M/uL Hgb 12.8 (12.0-15.0) g/dL Hct 39.2 L (40.0-54.0) % MCV 90 (80-98) fL MCH 29 (27-31) pg MCHC 33 (32-36) % Plt Count 247 (150-400) K/uL Sodium 150 H (140-148) mmol/L Potassium 3.6 (3.6-5.2) mmol/L Chloride 111 H (100-108) mmol/L Carbon Dioxide 35 H (21-32) mmol/L Anion Gap 7.6 (5.0-14.0) mmol/L BUN 48 H (7-18) mg/dL Creatinine 1.5 H (0.8-1.3) mg/dL Est Cr Clr Drug Dosing 52.17 mL/min Estimated GFR (MDRD) 47 L (>60) Glucose 128 H (74-106) mg/dL Calcium 8.1 L (8.5-10.1) mg/dL Phosphorus 4.6 (2.5-4.9) mg/dL Magnesium 1.8 (1.8-2.4) mg/dL Total Bilirubin 1.2 H (0.2-1.0) mg/dL AST 41 H (15-37) U/L ALT 53 (12-78) U/L Alkaline Phosphatase 36 L (46-116) U/L [id number] Pept 600 H (5-125) pg/mL Total Protein 5.9 L (6.4-8.2) g/dL Albumin 2.5 L (3.4-5.0) g/dL Globulin 3.4 (2.3-3.5) g/dL Albumin/Globulin Ratio 0.7 L (1.2-2.2) Urine Color Yellow Urine Appearance Slightly cloudy Urine pH 7.0 (4.5-8.0) Ur Specific [place] 1.010 (1.008-1.030) Urine Protein Negative (NEGATIVE) mg/dL Urine Glucose (UA) Normal (NEGATIVE) mg/dL Urine Ketones Negative (NEGATIVE) mg/dL Urine Occult Blood Moderate (NEGATIVE) Urine Nitrite Negative (NEGAITVE) Urine Bilirubin Negative (NEGATIVE) Urine Urobilinogen Normal (NORMAL) mg/dL Ur Leukocyte Esterase Negative (NEGATIVE) Urine RBC 5-10 H (0-5) Urine WBC 0-5 (0-5) Ur Epithelial Cells Not seen Amorphous Sediment Rare Urine Bacteria Not seen Urine Mucus Not seen Boby Results last 24 hrs: Microbiology 07/20/16 07:45 Aerobic Blood Culture - Final Blood - Venous - Lab Draw NO GROWTH AFTER 5 DAYS Anaerobic Blood Culture - Final NO GROWTH AFTER 5 DAYS 07/20/16 07:40 Aerobic Blood Culture - Final Blood - Arm, Left NO GROWTH AFTER 5 DAYS Anaerobic Blood Culture - Final NO GROWTH AFTER 5 DAYS 07/25/16 06:38 Gram Stain - Final Abdomen - Drainage 07/25/16 06:38 Gram Stain - Final Abdomen - Drainage 07/20/16 18:22 Gram Stain - Final Peritoneal Fluid Wound Culture - Final Enterococcus Faecalis Escherichia Coli Anaerobic Culture - Final NO GROWTH AFTER 3 DAYS Med Orders - Current: Current Medications Acetaminophen (Tylenol) 650 mg PO Q4H PRN PRN Reason: Fever Albuterol/Ipratropium (Duoneb 3.0-0.5 Mg/3 Ml) 3 ml INH QIDRT [facility] Last Admin: 07/25/16 10:27 Dose: 3 ml Albuterol/Ipratropium (Duoneb 3.0-0.5 Mg/3 Ml) 3 ml INH ASDIRECTED PRN PRN Reason: * Last Admin: 07/23/16 23:50 Dose: 3 ml Buspirone HCl (Buspar) 15 mg PO DAILY [facility] Last Admin: 07/25/16 08:51 Dose: 15 mg Buspirone HCl (Buspar) 7.5 mg PO BEDTIME [facility] Last Admin: 07/24/16 21:32 Dose: 7.5 mg Furosemide (Lasix) 20 mg IVPUSH Q8H [facility] Last Admin: 07/24/16 15:59 Dose: Not Given Haloperidol Lactate (Haldol) 2.5 mg IVPUSH Q1H PRN PRN Reason: PSYCHOSIS/ANXIETY Last Admin: 07/23/16 18:10 Dose: 2.5 mg Heparin Sodium (Porcine) (Heparin Lock Flush 100 Units/Ml Syringe) 500 units FLUSH ASDIRECTED PRN PRN Reason: IV Use Last Admin: 07/24/16 12:00 Dose: 500 units Hydroxyzine HCl (Vistaril) 100 mg IM Q4H PRN PRN Reason: PAIN Last Admin: 07/22/16 03:57 Dose: 100 mg Meropenem 500 mg/ Sodium (Chloride) 50 mls @ 100 mls/hr IV Q8H [facility] Last Admin: 07/25/16 05:48 Dose: 100 mls/hr Albumin Human 12.5 gm/ Premix 50 mls @ 25 mls/hr IV Q24H [facility] Stop: 07/26/16 10:59 Last Admin: 07/25/16 08:16 Dose: 25 mls/hr Albumin Human 12.5 gm/ Premix 50 mls @ 25 mls/hr IV Q24H [facility] Stop: 07/26/16 12:59 Last Admin: 07/25/16 10:20 Dose: 25 mls/hr Albumin Human 12.5 gm/ Premix 50 mls @ 25 mls/hr IV Q24H [facility] Stop: 07/26/16 14:59 Last Admin: 07/24/16 13:38 Dose: 25 mls/hr Albumin Human 12.5 gm/ Premix 50 mls @ 25 mls/hr IV Q24H [facility] Stop: 07/26/16 16:59 Last Admin: 07/24/16 14:55 Dose: 25 mls/hr Multivitamins/Minerals 10 ml/Chromium/Copper/Manganese/Seleni/Zn 1 ml/ Amino Ac/ Electrol/Dextrose/Calcium 1,011 mls @ 82 mls/hr IV .BY DURATION [facility] Last Admin: 07/24/16 11:16 Dose: 82 mls/hr Amino Ac/Electrol/Dextrose/Calcium (Clinimix E 5/15) 1,000 mls @ 82 mls/hr IV .BY DURATION [facility] Last Admin: 07/24/16 23:50 Dose: 82 mls/hr Acetaminophen 1,000 mg/ Premix 100 mls @ 400 mls/hr IV Q6H PRN PRN Reason: Pain Stop: 07/26/16 05:10 Last Admin: 07/25/16 05:20 Dose: 400 mls/hr Vancomycin HCl 1.75 gm/ Sodium (Chloride) 250 mls @ 167 mls/hr IV ONETIME ONE Stop: 07/25/16 12:29 Vancomycin HCl 1.5 gm/ Sodium (Chloride) 250 mls @ 167 mls/hr IV Q12H [facility] Labetalol HCl (Normodyne) 0 mg IV Q2H PRN PRN Reason: BP Lorazepam (Ativan) 0.5 mg IVPUSH Q2H PRN PRN Reason: Anxiety Last Admin: 07/23/16 16:53 Dose: 0.5 mg Losartan Potassium (Cozaar) 50 mg PO DAILY [facility] Last Admin: 07/25/16 08:51 Dose: 50 mg Morphine Sulfate (Morphine Home Appliance Tech 150 Mg In 30 Ml) 0 mg IV ASDIRECTED PRN; Protocol PRN Reason: PAIN Naloxone HCl (Narcan) 0.1 mg IV ASDIRECTED PRN PRN Reason: decreased respiratory rate Nitroglycerin (Nitrostat) 0.4 mg SL Q5M PRN PRN Reason: CHEST PAIN Ondansetron HCl (Zofran) 4 mg IVPUSH Q4H PRN PRN Reason: NAUSEA Pantoprazole Sodium (Protonix Iv) 40 mg IV Q24H [facility] Last Admin: 07/24/16 21:32 Dose: 40 mg Tamsulosin HCl (Flomax) 0.4 mg PO BEDTIME [facility] Last Admin: 07/24/16 21:32 Dose: 0.4 mg Vancomycin HCl (Vancomycin) 1 gm IV .PHARMACY TO DOSE [facility] Stop: 07/25/16 12:00 Discontinued Medications Albuterol (Proventil Neb Soln) 2.5 mg NEB Q4H PRN PRN Reason: Dyspnea Last Admin: 07/20/16 16:13 Dose: 2.5 mg Bacitracin (Bacitracin Oint) 0 gm TOP TID [facility] Last Admin: 07/20/16 13:58 Dose: 1 applic Bisacodyl (Dulcolax) 10 mg PO BID [facility] Last Admin: 07/20/16 09:22 Dose: 10 mg Bisacodyl (Dulcolax) 10 mg RECTAL BID PRN PRN Reason: Constipation Last Admin: 07/19/16 17:31 Dose: 10 mg Bupivacaine HCl (Marcaine 0.5%) Confirm Administered Dose 50 ml .ROUTE .STK-MED ONE Stop: 07/22/16 06:41 Last Admin: 07/22/16 07:34 Dose: 20 ml Bupivacaine HCl/Epinephrine Bitart (Marcaine 0.5%/Epinephrine 1:200,000) Confirm Administered Dose 50 ml .ROUTE .STK-MED ONE Stop: 07/16/16 06:43 Last Admin: 07/16/16 07:28 Dose: 10 ml Buspirone HCl (Buspar) 15 mg PO DAILY [facility] Last Admin: 07/20/16 09:21 Dose: 15 mg Buspirone HCl (Buspar) 7.5 mg PO QPM [facility] Last Admin: 07/20/16 17:57 Dose: Not Given Dexamethasone (Dexamethasone) Confirm Administered Dose 4 mg .ROUTE .STK-MED ONE Stop: 07/16/16 07:27 Dexamethasone (Dexamethasone) Confirm Administered Dose 4 mg .ROUTE .STK-MED ONE Stop: 07/20/16 16:44 Diatrizoate Meglum/Diatrizoate Sod (Gastrografin 37%) 1,200 ml .XX . DIRECTED [facility] Stop: 07/20/16 14:16 Last Admin: 07/20/16 15:27 Dose: 1,200 ml Fentanyl (Sublimaze) Confirm Administered Dose 500 mcg .ROUTE .STK-MED ONE Stop: 07/16/16 07:27 Fentanyl (Sublimaze) Confirm Administered Dose 250 mcg .ROUTE .STK-MED ONE Stop: 07/16/16 09:21 Fentanyl (Duragesic) 25 mcg TRDERM Q72H [facility] Last Admin: 07/20/16 09:24 Dose: 25 mcg Fentanyl (Sublimaze) Confirm Administered Dose 250 mcg .ROUTE .STK-MED ONE Stop: 07/20/16 16:45 Fentanyl (Sublimaze) Confirm Administered Dose 250 mcg .ROUTE .STK-MED ONE Stop: 07/20/16 18:24 Fentanyl (Duragesic) 25 mcg TRDERM Q72H [facility] Last Admin: 07/20/16 22:18 Dose: Not Given Fentanyl (Duragesic) 25 mcg TRDERM Q72H [facility] Fentanyl (Sublimaze) Confirm Administered Dose 100 mcg .ROUTE .STK-MED ONE Stop: 07/22/16 07:04 Fentanyl (Duragesic) 50 mcg TRDERM Q72H [facility] Last Admin: 07/22/16 09:40 Dose: 50 mcg Glycopyrrolate () Confirm Administered Dose 1 mg .ROUTE .STK-MED ONE Stop: 07/16/16 07:27 Glycopyrrolate () Confirm Administered Dose 1 mg .ROUTE .STK-MED ONE Stop: 07/20/16 16:44 Haloperidol Lactate (Haldol) 2.5 mg IVPUSH ONETIME ONE Stop: 07/23/16 06:18 Last Admin: 07/23/16 06:26 Dose: 2.5 mg Heparin Sodium (Porcine) (Heparin Lock Flush 100 Units/Ml Syringe) Confirm Administered Dose 500 units .ROUTE .STK-MED ONE Stop: 07/20/16 17:25 Last Admin: 07/20/16 17:28 Dose: 500 units Heparin Sodium (Porcine) (Heparin Sodium) Confirm Administered Dose 5,000 units .ROUTE .[facility]-MED ONE Stop: 07/20/16 20:54 Last Admin: 07/20/16 21:06 Dose: 5,000 units Hydromorphone HCl (Dilaudid Home Appliance Tech 15 Mg In Ns 30 Ml) 0 mg IV ASDIRECTED PRN; Protocol PRN Reason: Pain Last Admin: 07/16/16 07:37 Dose: 0.3 mg Hydromorphone HCl (Dilaudid Home Appliance Tech 15 Mg In Ns 30 Ml) 0 mg IV ASDIRECTED PRN; Protocol PRN Reason: PAIN Last Admin: 07/20/16 07:38 Dose: 15 mg Hydromorphone HCl (Dilaudid Home Appliance Tech 15 Mg In Ns 30 Ml) 0 mg IV ASDIRECTED PRN; Protocol PRN Reason: PAIN Last Admin: 07/21/16 07:19 Dose: 15 mg Hydroxyzine HCl (Vistaril) 100 mg IM Q4H PRN PRN Reason: Pain Last Admin: 07/20/16 14:41 Dose: 100 mg Hydroxyzine HCl (Vistaril) 50 mg IM ONETIME ONE Stop: 07/22/16 06:14 Last Admin: 07/22/16 06:29 Dose: 50 mg Clindamycin Phosphate 900 mg/ (Sodium Chloride) 106 mls @ 212 mls/hr IV ONETIME ONE Stop: 07/16/16 07:59 Last Admin: 07/16/16 07:48 Dose: 212 mls/hr Dextrose/Lactated Ringer's (Dextrose 5%-Lactated Ringers) 1,000 mls @ 100 mls/ hr IV ASDIRECTED [facility] Last Admin: 07/16/16 07:37 Dose: 100 mls/hr Lactated Ringer's (Ringers, Lactated) Confirm Administered Dose 1,000 mls @ as directed .ROUTE .K-MED ONE Stop: 07/16/16 09:17 Dextrose/Lactated Ringer's (Dextrose 5%-Lactated Ringers) 1,000 mls @ 150 mls/ hr IV ASDIRECTED [facility] Last Admin: 07/18/16 04:26 Dose: 150 mls/hr Cefazolin Sodium 2 gm/ Sodium (Chloride) 50 mls @ 100 mls/hr IV Q8H [facility] Stop: 07/17/16 06:29 Last Admin: 07/17/16 05:08 Dose: 100 mls/hr Dextrose/Lactated Ringer's (Dextrose 5%-Lactated Ringers) 1,000 mls @ 100 mls/ hr IV ASDIRECTED [facility] Last Admin: 07/19/16 14:53 Dose: 100 mls/hr Acetaminophen 1,000 mg/ Premix 100 mls @ 400 mls/hr IV Q6H PRN PRN Reason: PAIN Stop: 07/20/16 10:30 Acetaminophen 1,000 mg/ Premix 100 mls @ 400 mls/hr IV NOW ONE Stop: 07/20/16 07:32 Last Admin: 07/20/16 07:31 Dose: 400 mls/hr Lactated Ringer's (Ringers, Lactated) 1,000 mls @ 1,000 mls/hr IV ASDIRECTED [facility] Stop: 07/20/16 09:31 Last Admin: 07/20/16 09:10 Dose: 1,000 mls/hr Levofloxacin/Dextrose 500 mg/ (Premix) 100 mls @ 100 mls/hr IV Q24H [facility] Last Admin: 07/20/16 09:22 Dose: 100 mls/hr Acetaminophen 1,000 mg/ Premix 100 mls @ 400 mls/hr IV Q6H [facility] Last Admin: 07/20/16 22:20 Dose: 400 mls/hr Lactated Ringer's (Ringers, Lactated) 1,000 mls @ 250 mls/hr IV ASDIRECTED [facility] Stop: 07/20/16 14:01 Last Admin: 07/20/16 11:04 Dose: 250 mls/hr Meropenem 1 gm/ Sodium (Chloride) 50 mls @ 100 mls/hr IV Q8H [facility] Last Admin: 07/20/16 11:41 Dose: 100 mls/hr Lactated Ringer's (Ringers, Lactated) 1,000 mls @ 999 mls/hr IV BOLUS ONE Stop: 07/20/16 17:19 Last Admin: 07/20/16 21:10 Dose: 999 mls/hr Lactated Ringer's (Ringers, Lactated) Confirm Administered Dose 1,000 mls @ as directed .ROUTE .STK-MED ONE Stop: 07/20/16 18:26 Lactated Ringer's (Ringers, Lactated) Confirm Administered Dose 1,000 mls @ as directed .ROUTE .STK-MED ONE Stop: 07/20/16 18:27 Dextrose/Lactated Ringer's (Dextrose 5%-Lactated Ringers) 1,000 mls @ 100 mls/ hr IV ASDIRECTED [facility] Stop: 07/23/16 09:59 Last Admin: 07/23/16 00:19 Dose: 100 mls/hr Lactated Ringer's (Ringers, Lactated) 1,000 mls @ 100 mls/hr IV ASDIRECTED [facility] Stop: 07/21/16 17:59 Last Admin: 07/21/16 07:22 Dose: 100 mls/hr Aztreonam 1 gm/ Sodium (Chloride) 50 mls @ 100 mls/hr IV Q8HR [facility] Last Admin: 07/21/16 05:06 Dose: 100 mls/hr Acetaminophen 1,000 mg/ Premix 100 mls @ 400 mls/hr IV Q6H [facility] Stop: 07/21/16 16:14 Last Admin: 07/21/16 17:12 Dose: 400 mls/hr Aztreonam/Dextrose 1 gm/ (Premix) 50 mls @ 100 mls/hr IV Q8HR [facility] Last Admin: 07/25/16 05:52 Dose: 100 mls/hr Lactated Ringer's (Ringers, Lactated) 1,000 mls @ 40 mls/hr IV ASDIRECTED [facility] Lactated Ringer's (Ringers, Lactated) 1,000 mls @ 40 mls/hr IV ASDIRECTED [facility] Last Admin: 07/23/16 03:55 Dose: 40 mls/hr Multivitamins/Minerals 10 ml/Chromium/Copper/Manganese/Seleni/Zn 1 ml/ Amino Ac/ Electrol/Dextrose/Calcium 1,011 mls @ 82 mls/hr IV .BY DURATION [facility] Last Admin: 07/23/16 10:23 Dose: 82 mls/hr Amino Ac/Electrol/Dextrose/Calcium (Clinimix E 15) 1,000 mls @ 82 mls/hr IV .BY DURATION [facility] Last Admin: 07/23/16 22:44 Dose: 82 mls/hr Lactated Ringer's (Ringers, Lactated) 1,000 mls @ 0 mls/hr IV ASDIRECTED [facility] PRN Reason: KVO Last Admin: 07/24/16 19:59 Dose: 25 mls/hr Acetaminophen 1,000 mg/ Premix 100 mls @ 400 mls/hr IV Q6H PRN PRN Reason: Pain Stop: 07/24/16 23:18 Last Admin: 07/24/16 20:14 Dose: 400 mls/hr Potassium Chloride 40 meq/ (Premix) 100 mls @ 25 mls/hr IV ONETIME ONE Stop: 07/24/16 12:29 Last Admin: 07/24/16 08:56 Dose: 25 mls/hr Potassium Chloride 20 meq/ (Premix) 100 mls @ 50 mls/hr IV ONETIME ONE Stop: 07/24/16 14:59 Last Admin: 07/24/16 12:31 Dose: 50 mls/hr Lactated Ringer's (Ringers, Lactated) 1,000 mls @ 25 mls/hr IV ASDIRECTED [facility] PRN Reason: KVO Ketorolac Tromethamine (Toradol) 60 mg IM ONETIME ONE Stop: 07/19/16 17:04 Last Admin: 07/19/16 17:30 Dose: 60 mg Labetalol HCl (Normodyne) 5 - 10 mg IV Q2H PRN PRN Reason: BP Last Admin: 07/25/16 05:19 Dose: 10 mg Labetalol HCl (Normodyne) Confirm Administered Dose 20 mg .ROUTE .STK-MED ONE Stop: 07/25/16 05:16 Last Admin: 07/25/16 08:49 Dose: Not Given Lidocaine HCl (Xylocaine 2% Jelly) 10 ml MUCMEM ONETIME ONE Stop: 07/16/16 21:15 Last Admin: 07/16/16 21:41 Dose: 10 ml Lidocaine/Epinephrine (Xylocaine 1% With Epinephrine 1:100,000) Confirm Administered Dose 50 ml .ROUTE .STK-MED ONE Stop: 07/22/16 06:41 Last Admin: 07/22/16 07:34 Dose: 20 ml Lorazepam (Ativan) 0.5 - 1 mg IVPUSH Q4H PRN PRN Reason: Anxiety Losartan Potassium (Cozaar) 50 mg PO DAILY [facility] Last Admin: 07/20/16 09:21 Dose: 50 mg Magnesium Citrate (Citrate Of Magnesia) 296 ml PO ONETIME ONE Stop: 07/18/16 09:01 Last Admin: 07/18/16 10:55 Dose: 296 ml Magnesium Hydroxide (Milk Of Magnesia) 30 ml PO ONETIME ONE Stop: 07/19/16 08:46 Last Admin: 07/19/16 10:27 Dose: 30 ml Meperidine HCl (Demerol) 100 mg IM ONETIME ONE Stop: 07/20/16 16:01 Last Admin: 07/20/16 16:05 Dose: 100 mg Meperidine HCl (Demerol) 100 mg IM ONETIME ONE Stop: 07/22/16 06:14 Last Admin: 07/22/16 06:28 Dose: 100 mg Meropenem (Merrem) Confirm Administered Dose 500 mg .ROUTE .STK-MED ONE Stop: 07/16/16 06:43 Last Admin: 07/16/16 09:25 Dose: 500 mg Meropenem (Merrem) Confirm Administered Dose 2,000 mg .ROUTE .STK-MED ONE Stop: 07/20/16 17:25 Last Admin: 07/20/16 17:25 Dose: 2,000 mg Meropenem (Merrem) Confirm Administered Dose 500 mg .ROUTE .STK-MED ONE Stop: 07/22/16 06:41 Last Admin: 07/22/16 07:34 Dose: 500 mg Midazolam HCl (Versed 1 Mg/Ml) Confirm Administered Dose 2 mg .ROUTE .STK-MED ONE Stop: 07/20/16 16:46 Midazolam HCl (Versed 1 Mg/Ml) Confirm Administered Dose 2 mg .ROUTE .STK-MED ONE Stop: 07/22/16 07:04 Morphine Sulfate (Morphine Home Appliance Tech 150 Mg In 30 Ml) 150 mg IV ASDIRECTED RUMA PRN Reason: Protocol Last Admin: 07/22/16 06:49 Dose: 150 mg Naloxone HCl (Narcan) 0.1 mg IV ASDIRECTED PRN PRN Reason: decreased respiratory rate Naloxone HCl (Narcan) 0.1 mg IV ASDIRECTED PRN PRN Reason: decreased respiratory rate Naloxone HCl (Narcan) Confirm Administered Dose 0.4 mg .ROUTE .STK-MED ONE Stop: 07/20/16 20:01 Naloxone HCl (Narcan) 0.1 mg IV ASDIRECTED PRN PRN Reason: decreased respiratory rate Neostigmine Methylsulfate (Neostigmine) Confirm Administered Dose 5 mg .ROUTE .STK-MED ONE Stop: 07/16/16 07:27 Neostigmine Methylsulfate (Neostigmine) Confirm Administered Dose 5 mg .ROUTE .STK-MED ONE Stop: 07/20/16 16:44 Nitroglycerin (Nitrostat) 0.4 mg SL Q5M PRN PRN Reason: CHEST PAIN Fentanyl Patch Check 0 each TOP DAILY [facility] Last Admin: 07/20/16 09:27 Dose: 1 each Fentanyl Patch Check 0 each TOP DAILY@2200 RUMA Last Admin: 07/20/16 22:19 Dose: Not Given Verify Fentanyl (Patch) 0 each TOP BID [facility] Last Admin: 07/24/16 23:12 Dose: Not Given Ondansetron HCl (Zofran) Confirm Administered Dose 4 mg .ROUTE .STK-MED ONE Stop: 07/16/16 07:27 Ondansetron HCl (Zofran) 4 mg IVPUSH Q4H PRN PRN Reason: NAUSEA Last Admin: 07/17/16 10:56 Dose: 4 mg Ondansetron HCl (Zofran) Confirm Administered Dose 4 mg .ROUTE .STK-MED ONE Stop: 07/20/16 16:44 Oxycodone/Acetaminophen (Percocet 325-5 Mg) 1 - 2 tab PO Q4H PRN PRN Reason: PAIN Last Admin: 07/20/16 03:34 Dose: 2 tab Polyethylene Glycol (Miralax) 119 gm PO ONETIME ONE Stop: 07/20/16 10:01 Last Admin: 07/20/16 09:35 Dose: 119 gm Propofol (Diprivan 20 Ml) Confirm Administered Dose 200 mg .ROUTE .STK-MED ONE Stop: 07/16/16 07:27 Propofol (Diprivan 20 Ml) Confirm Administered Dose 200 mg .ROUTE .STK-MED ONE Stop: 07/20/16 16:44 Propofol (Diprivan 20 Ml) Confirm Administered Dose 200 mg .ROUTE .STK-MED ONE Stop: 07/22/16 07:04 Rocuronium [place] (Zemuron) Confirm Administered Dose 50 mg .ROUTE .STK-MED ONE Stop: 07/16/16 07:27 Rocuronium [place] (Zemuron) Confirm Administered Dose 50 mg .ROUTE .STK-MED ONE Stop: 07/20/16 16:44 Rocuronium [place] (Zemuron) Confirm Administered Dose 50 mg .ROUTE .STK-MED ONE Stop: 07/20/16 18:24 Sodium Chloride (Saline Flush) 10 ml IV ASDIRECTED PRN PRN Reason: LINE FLUSH Succinylcholine Chloride (Succinylcholine In Ns Pf) Confirm Administered Dose 200 mg .ROUTE .STK-MED ONE Stop: 07/16/16 07:27 Succinylcholine Chloride (Succinylcholine In Ns Pf) Confirm Administered Dose 200 mg .ROUTE .STK-MED ONE Stop: 07/20/16 16:44 Tamsulosin HCl (Flomax) 0.4 mg PO BEDTIME RUMA Last Admin: 07/19/16 21:18 Dose: 0.4 mg Tamsulosin HCl (Flomax) 0.4 mg PO ONETIME ONE Stop: 07/17/16 09:01 Last Admin: 07/17/16 10:18 Dose: 0.4 mg Tamsulosin HCl (Flomax) 0.4 mg PO ONETIME ONE Stop: 07/24/16 08:31 Last Admin: 07/24/16 09:06 Dose: 0.4 mg - Exam Quality Assessment: supplemental oxygen, urine catheter General: alert, oriented, cooperative, mild distress Lungs: Clear to auscultation, Normal respiratory effort Cardiovascular: regular rate, regular rhythm, no murmurs Abdomen: soft, no distension, tenderness, abnormal bowel sounds. No: rigidity, rebound, guarding Extremities: edema Skin: warm, dry, intact Consult PN Assessment/Plan Procedures: Procedures ASSAY OF TROPONIN QUANT (08/25/13) CARDIOVASCULAR STRESS TEST (11/07/14) CHEST X-RAY 1 VIEW FRONTAL (08/25/13) COMPLETE CBC W/AUTO DIFF WBC (08/25/13) COMPREHEN METABOLIC PANEL (08/25/13) ELECTROCARDIOGRAM REPORT (08/25/13) ELECTROCARDIOGRAM TRACING (08/25/13) EMERGENCY DEPT VISIT (08/25/13) EMERGENCY DEPT VISIT (08/25/13) HT MUSCLE IMAGE SPECT MULT (11/07/14) INITIAL OBSERVATION CARE (08/25/13) METABOLIC PANEL TOTAL CA (08/25/13) OBSERVATION CARE DISCHARGE (08/25/13) ROUTINE VENIPUNCTURE (08/25/13) THER/PROPH/DIAG INJ IV PUSH (08/25/13) TX/PRO/DX INJ NEW DRUG ADDON (08/25/13) Problem List Initiated/Reviewed/Updated: Yes My Orders last 24 hours: My Active Orders 07/24/16 11:29 Abdomen Pelvis wo Cont [CT] Stat 07/25/16 08:35 Chest 2V [CR] Urgent 07/25/16 10:31 Convert IV to Saline Lock [OM.PC] Routine 07/25/16 11:00 Vancomycin 1 gm IV .PHARMACY TO DOSE Vancomycin 1.75 gm Sodium Chloride 0.9% [Normal Saline] 250 ml IV ONETIME 07/25/16 23:00 Vancomycin 1.5 gm Sodium Chloride 0.9% [Normal Saline] 250 ml IV Q12H 07/26/16 05:00 CBC WITH AUTO DIFF [HEME] Timed COMPREHENSIVE METABOLIC PN,CMP [CHEM] Timed MAGNESIUM [CHEM] Timed PHOSPHORUS [CHEM] Timed Plan: ASSESSMENT AND RECOMMENDATIONS SEPSIS SECONDARY TO INTESTINAL PERFORATION-status post delayed primary closure done yesterday, hemodynamically stable, mild temperature elevation during the night. Further increase in white blood cell count over the past 24 hours. Cultures from surgery are growing enterococcus and Escherichia coli. -CT scan of the abdomen and pelvis to rule out developing abscess -Postoperative care per Dr. Youngblood -Blood cultures are pending -Continue meropenem and discontinue Azactam -Add vancomycin for enterococcal coverage, because of his penicillin allergy. ACUTE KIDNEY INJURY-likely secondary to hypotension related to sepsis, renal function continues to improve. Evidence of fluid overload , we'll plan to saline lock IV's. -Continue to monitor urine output and renal function closely STATUS POST ABDOMINAL WALL HERNIA REPAIR CORONARY ARTERY DISEASE-asymptomatic
--- NOTE | 2016-07-25 10:52 | PN ---
DATE OF SERVICE: 07/25/2016 SUBJECTIVE: Srinivas did spike a temp of 100.9 during the night. He was given IV Tylenol. This morning, he is alert. Vital signs have been stable. He has been receiving labetalol for blood pressures over the recommended guidelines. REVIEW OF SYSTEMS: Remainder of review of systems negative for any pertinent positives and negatives. OBJECTIVE: GENERAL: Srinivas Lofton is a 65-year-old male. VITAL SIGNS: TPR is 100.9, 80, 19. Blood pressure 172/79. HEENT: Negative. NECK: Supple. HEART: Regular rate and rhythm. LUNGS: Clear. ABDOMEN: Occlusive dressing was removed. He is having some drainage of the top of his incision, it is a clear serosanguineous pink drainage as well as it is pooled around the umbilicus. EXTREMITIES: Without peripheral edema. ASSESSMENT: 1. Lysis of extensive adhesions, 70 minutes, repair of recurrent incarcerated umbilical hernia with mesh, removal of previous mesh and placement of Vicryl mesh to displace small bowel and omentum into the newly placed mesh to limit recurrent adhesive formation between the pelvis and abdominal wall and associated areas of mesh placement for recurrent incarcerated umbilical hernia, extensive adhesions between previously placed mesh and omentum on 07/16/2016. 2. Open laparotomy with significant GI contamination on 07/20/2016. 3. Delayed primary closure for open incision on 07/22/2016. PLAN: Check cultures of the drainage from the incision on the very top part of incision as well as an umbilical area. Continue Tylenol for fever. Remainder of orders to be written per Evelio Brody MD, hospitalist. Lidia Rao PA-C /[id number]
[2016-07-25] MEDS ORDERED: Vancomycin 1 GM SDV IV SCH (11:00)
[2016-07-25] MEDS: 1: AA 5%/Calcium/D15W/Lytes 1,000 ML with MVI, Adult with Vitamin K 10 ML, Chromium/Copp IV SCH ×3 (13:40)
[2016-07-25] MEDS: Labetalol 100 MG/20 ML MDV IV PRN ×2 (15:28→21:10)
[2016-07-25] MEDS: Pantoprazole 40 MG Vial IV SCH (20:56)
[2016-07-25] MEDS: Tamsulosin 0.4 MG Cap.ER PO SCH (20:56)
[2016-07-26] MEDS: 1: AA 5%/Calcium/D15W/Lytes 1,000 ML with MVI, Adult with Vitamin K 10 ML, Chromium/Copp IV SCH ×6 (00:18→12:58)
[2016-07-26] MEDS: Labetalol 100 MG/20 ML MDV IV PRN ×2 (02:17→11:21)
[2016-07-26] MEDS: Acetaminophen 1,000 MG in Premix Bag 1 BAG IV PRN (03:58)
[2016-07-26] MEDS: hydrOXYzine HCl 50 MG/ML SDV IM PRN ×2 (05:16→12:16)
[2016-07-26] MEDS: Meropenem 500 MG in Sodium Chloride 0.9% 50 ML IV SCH (05:17)
[2016-07-26] MEDS: Albuterol/Ipratropium 3.0-0.5 MG/3 ML Neb Soln INH SCH ×4 (07:05→21:21)
--- NOTE | 2016-07-26 08:19 | PN ---
DATE OF SERVICE: 07/26/2016 SUBJECTIVE: Srinivas's temp-max is 101.5. He was given IV Tylenol twice. His white count was 20,000. His antibiotics were changed to vancomycin and meropenem. He did receive labetalol twice for elevated blood sugar. Gastrostomy tube put out 150 mL. His ALLIE drains have put out 13, 13, 15, 50, 15, 15 of a light pink serous drainage. He is passing flatus, but has not had a bowel movement. Pain was difficult to control last evening, and in the past 24 hours, he was given Vistaril, and he is somewhat anxious over the past 12 hours. REVIEW OF SYSTEMS: Remainder of review of systems negative for any pertinent positives and negatives. OBJECTIVE: GENERAL: Srinivas Lofton is a 65-year-old male. He is sleepy. VITAL SIGNS: TPR is 99.5 with a temp-max in the past 24 hours of 101.5, 88, 19, blood pressure 166/77. HEENT: Negative. NECK: Supple. HEART: Regular rate and rhythm. LUNGS: Reveal decreased breath sounds in the bases, otherwise clear. ABDOMEN: He continues to have drainage from the top part of the incision as well as umbilical area. The dressings have been changed on a p.r.n. basis. He has the ALLIE drains that are draining 15, 15, 15, 80, 9, 12 respectively of a pink serous drainage. His gastrostomy tube put out 450 of a bilious drainage. EXTREMITIES: Reveal trace peripheral edema. ASSESSMENT: 1. Diagnostic laparoscopy with lysis of extensive adhesions, 70 minutes. Repair of recurrent incarcerated umbilical hernia with mesh with removal of previous mesh, placement of Vicryl mesh to displace small bowel and omentum from newly placed mesh to limit recurrent adhesive formation between the pelvic and abdominal wall and associated areas of mesh placement for recurrent incarcerated hernia, extensive adhesions between a previously placed mesh and omentum from the bowel on 07/16/2016. 2. Exploratory laparotomy with distal small bowel resection, total abdominal colectomy, removal of intraabdominal mesh, and insertion of central venous catheter on 07/20/2016. 3. Delayed primary closure of open incision on 07/22/2016. PLAN: 1. Dulcolax suppository b.i.d. scheduled until BM. 2. Remainder of orders to be written per Caden Momin MD, hospitalist. 3. Continue to work on good pulmonary toilet. 4. We will evaluate p.r.n. or in a.m. Lidia Rao PA-C /[id number]
[2016-07-26] MEDS ORDERED: Magnesium Hydroxide 400 MG/5 ML Susp 30 ML Cup PO ONE (09:00)
[2016-07-26] MEDS: Albumin 25% 12.5 GM in Premix Bag 1 BAG IV SCH ×4 (09:09→15:09)
[2016-07-26] MEDS: busPIRone 5 MG Tab PO SCH ×2 (09:09→21:21)
[2016-07-26] MEDS: Losartan 50 MG Tab PO SCH (09:09)
--- NOTE | 2016-07-26 09:21 | PN ---
DATE OF SERVICE: 07/24/2016 SUBJECTIVE: The patient is running a temperature in the 99 to 100.8 range. Vital signs otherwise have been stable. Due to being somewhat hypertensive, he was receiving some labetalol. He did have enough diuresis over the last 24 hours of over 6 L and his BNP is down around 1200. He still is somewhat wheezy intermittently. O2 sat on 2 L nasal cannula is around 95%. No flatus or bowel movement as of yet. The drains are remaining clear. The Aquacel dressing was soaked and will be replaced. The plan will be to leave the Villeda catheter in today. We will begin some Flomax in anticipation of getting the Villeda catheter out in the next 48 hours. His mental status has somewhat improved with less in the way of psychosis. He still remains fairly apprehensive. He has been up walking. Labs show a development of contraction alkalosis due to diuresis, and we will change TPN to minimize the acetate in it. The phosphate is a little bit high at 5.4, but I think that will come down. Creatinine is down a little bit further at 1.8. The plan today will be to change the TPN as noted above, augment diuresis, and we will give him 60 mg KCl IV and we will begin the Flomax as noted above. Looking ahead on this patient, the biggest concern would be development of some secondary abscess and if he spikes a significant temp or looks septic to any degree, CT of the abdomen and pelvis would be the next step. Otherwise, we will continue with the present antibiotics. Sg Youngblood MD /[id number]
[2016-07-26] MEDS ORDERED: HYDROmorphone 0.5 MG/0.5 ML Syringe IVPUSH PRN (09:40)
--- NOTE | 2016-07-26 09:46 | CR ---
Heart size within normal limits. Right lung is clear. Small left pleural effusion. Opacification lef t lung base. This may indicate airspace disease, infection.
--- NOTE | 2016-07-26 09:50 | PCM.CONSN ---
- General Info Date of Service: 07/26/16 Functional Status: Reports: tolerating diet, ambulating. Denies: pain controlled - Review of Systems General: Reports: fever, weakness Gastrointestinal: Reports: Abdominal pain Systems Review Comment:: no acute events overnight. Patient still reports at least moderately severe pain located over the upper part of his incision as well as the area of his incision just above his belly button. This pain is fairly intense even at rest but especially bad when he is up and moving around. He thinks that the drainage from the wound is increasing. He has been up and walking around some but very reluctantly. He continues to have fevers. CT scan yesterday did not show evidence for acute intra-abdominal pathology. No complaints of shortness of breath. He does report hallucinations and has been seeing bugs on the floor. He seems to be tolerating his clear liquids well and is passing gas but has not had a bowel movement yet. - Patient Data Vitals - most recent: Last Vital Signs Temp 38.0 C 07/26/16 08:00 Pulse 86 07/26/16 08:00 Resp 16 07/26/16 08:00 BP 157/90 H 07/26/16 09:09 Pulse Ox 94 L 07/26/16 08:00 Weight - most recent: 109.588 kg I&O - last 24 hours: Intake & Output 07/25/16 07/26/16 07/26/16 22:59 06:59 14:59 Intake Total 2178 1375 240 Output Total 1006 2150 325 Balance 3872 -775 -85 Lab Results last 24 hrs: Laboratory Results - last 24 hr 07/26/16 07/26/16 Range/Units 04:15 04:15 WBC 20.0 H (4.5-11.0) K/uL RBC 4.37 (4.30-5.90) M/uL Hgb 12.9 (12.0-15.0) g/dL Hct 39.5 L (40.0-54.0) % MCV 90 (80-98) fL MCH 30 (27-31) pg MCHC 33 (32-36) % Plt Count 277 (150-400) K/uL Neut % (Auto) 77 H (36-66) % Lymph % (Auto) 11 L (24-44) % [place] % (Auto) 8 H (2-6) % Eos % (Auto) 3 (2-4) % Baso % (Auto) 1 (0-1) % Sodium 150 H (140-148) mmol/L Potassium 4.1 (3.6-5.2) mmol/L Chloride 113 H (100-108) mmol/L Carbon Dioxide 31 (21-32) mmol/L Anion Gap 10.1 (5.0-14.0) mmol/L BUN 45 H (7-18) mg/dL Creatinine 1.5 H (0.8-1.3) mg/dL Est Cr Clr Drug Dosing 52.17 mL/min Estimated GFR (MDRD) 47 L (>60) Glucose 124 H (74-106) mg/dL Calcium 8.1 L (8.5-10.1) mg/dL Phosphorus 4.1 (2.5-4.9) mg/dL Magnesium 1.9 (1.8-2.4) mg/dL Total Bilirubin 1.2 H (0.2-1.0) mg/dL AST 33 (15-37) U/L ALT 51 (12-78) U/L Alkaline Phosphatase 36 L (46-116) U/L [id number] Pept 337 H (5-125) pg/mL Total Protein 6.0 L (6.4-8.2) g/dL Albumin 2.7 L (3.4-5.0) g/dL Globulin 3.3 (2.3-3.5) g/dL Albumin/Globulin Ratio 0.8 L (1.2-2.2) Boby Results last 24 hrs: Microbiology 07/25/16 06:38 Gram Stain - Final Abdomen - Drainage Wound Culture - Preliminary 07/25/16 06:38 Gram Stain - Final Abdomen - Drainage Wound Culture - Preliminary 07/20/16 07:45 Aerobic Blood Culture - Final Blood - Venous - Lab Draw NO GROWTH AFTER 5 DAYS Anaerobic Blood Culture - Final NO GROWTH AFTER 5 DAYS 07/20/16 07:40 Aerobic Blood Culture - Final Blood - Arm, Left NO GROWTH AFTER 5 DAYS Anaerobic Blood Culture - Final NO GROWTH AFTER 5 DAYS Med Orders - Current: Current Medications Acetaminophen (Tylenol) 650 mg PO Q4H PRN PRN Reason: Fever Albuterol/Ipratropium (Duoneb 3.0-0.5 Mg/3 Ml) 3 ml INH QIDRT [facility] Last Admin: 07/26/16 07:05 Dose: 3 ml Albuterol/Ipratropium (Duoneb 3.0-0.5 Mg/3 Ml) 3 ml INH ASDIRECTED PRN PRN Reason: * Last Admin: 07/23/16 23:50 Dose: 3 ml Bisacodyl (Dulcolax) 20 mg PO ONETIME ONE Stop: 07/26/16 10:01 Last Admin: 07/26/16 09:09 Dose: 20 mg Bisacodyl (Dulcolax) 10 mg RECTAL BID [facility] Buspirone HCl (Buspar) 15 mg PO DAILY [facility] Last Admin: 07/26/16 09:09 Dose: 15 mg Buspirone HCl (Buspar) 7.5 mg PO BEDTIME [facility] Last Admin: 07/25/16 20:55 Dose: 7.5 mg Furosemide (Lasix) 20 mg IVPUSH Q8H [facility] Last Admin: 07/24/16 15:59 Dose: Not Given Heparin Sodium (Porcine) (Heparin Lock Flush 100 Units/Ml Syringe) 500 units FLUSH ASDIRECTED PRN PRN Reason: IV Use Last Admin: 07/26/16 04:30 Dose: 500 units Hydroxyzine HCl (Vistaril) 100 mg IM Q4H PRN PRN Reason: PAIN Last Admin: 07/26/16 05:16 Dose: 100 mg Albumin Human 12.5 gm/ Premix 50 mls @ 25 mls/hr IV Q24H [facility] Stop: 07/26/16 10:59 Last Admin: 07/26/16 09:09 Dose: 25 mls/hr Albumin Human 12.5 gm/ Premix 50 mls @ 25 mls/hr IV Q24H [facility] Stop: 07/26/16 12:59 Last Admin: 07/25/16 10:20 Dose: 25 mls/hr Albumin Human 12.5 gm/ Premix 50 mls @ 25 mls/hr IV Q24H [facility] Stop: 07/26/16 14:59 Last Admin: 07/25/16 13:49 Dose: 25 mls/hr Albumin Human 12.5 gm/ Premix 50 mls @ 25 mls/hr IV Q24H [facility] Stop: 07/26/16 16:59 Last Admin: 07/25/16 15:22 Dose: 25 mls/hr Multivitamins/Minerals 10 ml/Chromium/Copper/Manganese/Seleni/Zn 1 ml/ Amino Ac/ Electrol/Dextrose/Calcium 1,011 mls @ 82 mls/hr IV .BY DURATION [facility] Last Admin: 07/25/16 13:40 Dose: 82 mls/hr Amino Ac/Electrol/Dextrose/Calcium (Clinimix E 5/15) 1,000 mls @ 82 mls/hr IV .BY DURATION [facility] Last Admin: 07/26/16 00:18 Dose: 82 mls/hr Vancomycin HCl 1.5 gm/ Sodium (Chloride) 250 mls @ 167 mls/hr IV Q12H [facility] Last Admin: 07/25/16 23:18 Dose: 167 mls/hr Labetalol HCl (Normodyne) 0 mg IV Q2H PRN PRN Reason: BP Last Admin: 07/26/16 02:17 Dose: 10 mg Losartan Potassium (Cozaar) 50 mg PO DAILY [facility] Last Admin: 07/26/16 09:09 Dose: 50 mg Naloxone HCl (Narcan) 0.1 mg IV ASDIRECTED PRN PRN Reason: decreased respiratory rate Nitroglycerin (Nitrostat) 0.4 mg SL Q5M PRN PRN Reason: CHEST PAIN Ondansetron HCl (Zofran) 4 mg IVPUSH Q4H PRN PRN Reason: NAUSEA Tamsulosin HCl (Flomax) 0.4 mg PO BEDTIME [facility] Last Admin: 07/25/16 20:56 Dose: 0.4 mg Discontinued Medications Albuterol (Proventil Neb Soln) 2.5 mg NEB Q4H PRN PRN Reason: Dyspnea Last Admin: 07/20/16 16:13 Dose: 2.5 mg Bacitracin (Bacitracin Oint) 0 gm TOP TID [facility] Last Admin: 07/20/16 13:58 Dose: 1 applic Bisacodyl (Dulcolax) 10 mg PO BID [facility] Last Admin: 07/20/16 09:22 Dose: 10 mg Bisacodyl (Dulcolax) 10 mg RECTAL BID PRN PRN Reason: Constipation Last Admin: 07/19/16 17:31 Dose: 10 mg Bupivacaine HCl (Marcaine 0.5%) Confirm Administered Dose 50 ml .ROUTE .STK-MED ONE Stop: 03/09/17 06:41 Last Admin: 07/22/16 07:34 Dose: 20 ml Bupivacaine HCl/Epinephrine Bitart (Marcaine 0.5%/Epinephrine 1:200,000) Confirm Administered Dose 50 ml .ROUTE .STK-MED ONE Stop: 07/16/16 06:43 Last Admin: 07/16/16 07:28 Dose: 10 ml Buspirone HCl (Buspar) 15 mg PO DAILY [facility] Last Admin: 07/20/16 09:21 Dose: 15 mg Buspirone HCl (Buspar) 7.5 mg PO QPM [facility] Last Admin: 07/20/16 17:57 Dose: Not Given Dexamethasone (Dexamethasone) Confirm Administered Dose 4 mg .ROUTE .ST-MED ONE Stop: 07/16/16 07:27 Dexamethasone (Dexamethasone) Confirm Administered Dose 4 mg .ROUTE .STK-MED ONE Stop: 07/20/16 16:44 Diatrizoate Meglum/Diatrizoate Sod (Gastrografin 37%) 1,200 ml .XX . DIRECTED [facility] Stop: 07/20/16 14:16 Last Admin: 07/20/16 15:27 Dose: 1,200 ml Fentanyl (Sublimaze) Confirm Administered Dose 500 mcg .ROUTE .[facility]-MED ONE Stop: 07/16/16 07:27 Fentanyl (Sublimaze) Confirm Administered Dose 250 mcg .ROUTE .ST-MED ONE Stop: 07/16/16 09:21 Fentanyl (Duragesic) 25 mcg TRDERM Q72H [facility] Last Admin: 07/20/16 09:24 Dose: 25 mcg Fentanyl (Sublimaze) Confirm Administered Dose 250 mcg .ROUTE .STK-MED ONE Stop: 07/20/16 16:45 Fentanyl (Sublimaze) Confirm Administered Dose 250 mcg .ROUTE .STK-MED ONE Stop: 07/20/16 18:24 Fentanyl (Duragesic) 25 mcg TRDERM Q72H [facility] Last Admin: 07/20/16 22:18 Dose: Not Given Fentanyl (Duragesic) 25 mcg TRDERM Q72H [facility] Fentanyl (Sublimaze) Confirm Administered Dose 100 mcg .ROUTE .STK-MED ONE Stop: 07/22/16 07:04 Fentanyl (Duragesic) 50 mcg TRDERM Q72H [facility] Last Admin: 07/22/16 09:40 Dose: 50 mcg Glycopyrrolate () Confirm Administered Dose 1 mg .ROUTE .STK-MED ONE Stop: 07/16/16 07:27 Glycopyrrolate () Confirm Administered Dose 1 mg .ROUTE .STK-MED ONE Stop: 07/20/16 16:44 Haloperidol Lactate (Haldol) 2.5 mg IVPUSH ONETIME ONE Stop: 07/23/16 06:18 Last Admin: 07/23/16 06:26 Dose: 2.5 mg Haloperidol Lactate (Haldol) 2.5 mg IVPUSH Q1H PRN PRN Reason: PSYCHOSIS/ANXIETY Last Admin: 07/23/16 18:10 Dose: 2.5 mg Heparin Sodium (Porcine) (Heparin Lock Flush 100 Units/Ml Syringe) Confirm Administered Dose 500 units .ROUTE .STK-MED ONE Stop: 07/20/16 17:25 Last Admin: 07/20/16 17:28 Dose: 500 units Heparin Sodium (Porcine) (Heparin Sodium) Confirm Administered Dose 5,000 units .ROUTE .STK-MED ONE Stop: 07/20/16 20:54 Last Admin: 07/20/16 21:06 Dose: 5,000 units Hydromorphone HCl (Dilaudid Board Turner 15 Mg In Ns 30 Ml) 0 mg IV ASDIRECTED PRN; Protocol PRN Reason: Pain Last Admin: 07/16/16 07:37 Dose: 0.3 mg Hydromorphone HCl (Dilaudid Board Turner 15 Mg In Ns 30 Ml) 0 mg IV ASDIRECTED PRN; Protocol PRN Reason: PAIN Last Admin: 07/20/16 07:38 Dose: 15 mg Hydromorphone HCl (Dilaudid Board Turner 15 Mg In Ns 30 Ml) 0 mg IV ASDIRECTED PRN; Protocol PRN Reason: PAIN Last Admin: 07/21/16 07:19 Dose: 15 mg Hydroxyzine HCl (Vistaril) 100 mg IM Q4H PRN PRN Reason: Pain Last Admin: 07/20/16 14:41 Dose: 100 mg Hydroxyzine HCl (Vistaril) 50 mg IM ONETIME ONE Stop: 07/22/16 06:14 Last Admin: 07/22/16 06:29 Dose: 50 mg Clindamycin Phosphate 900 mg/ (Sodium Chloride) 106 mls @ 212 mls/hr IV ONETIME ONE Stop: 07/16/16 07:59 Last Admin: 07/16/16 07:48 Dose: 212 mls/hr Dextrose/Lactated Ringer's (Dextrose 5%-Lactated Ringers) 1,000 mls @ 100 mls/ hr IV ASDIRECTED [facility] Last Admin: 07/16/16 07:37 Dose: 100 mls/hr Lactated Ringer's (Ringers, Lactated) Confirm Administered Dose 1,000 mls @ as directed .ROUTE .STK-MED ONE Stop: 07/16/16 09:17 Dextrose/Lactated Ringer's (Dextrose 5%-Lactated Ringers) 1,000 mls @ 150 mls/ hr IV ASDIRECTED [facility] Last Admin: 07/18/16 04:26 Dose: 150 mls/hr Cefazolin Sodium 2 gm/ Sodium (Chloride) 50 mls @ 100 mls/hr IV Q8H [facility] Stop: 07/17/16 06:29 Last Admin: 07/17/16 05:08 Dose: 100 mls/hr Dextrose/Lactated Ringer's (Dextrose 5%-Lactated Ringers) 1,000 mls @ 100 mls/ hr IV ASDIRECTED [facility] Last Admin: 07/19/16 14:53 Dose: 100 mls/hr Acetaminophen 1,000 mg/ Premix 100 mls @ 400 mls/hr IV Q6H PRN PRN Reason: PAIN Stop: 07/20/16 10:30 Acetaminophen 1,000 mg/ Premix 100 mls @ 400 mls/hr IV NOW ONE Stop: 07/20/16 07:32 Last Admin: 07/20/16 07:31 Dose: 400 mls/hr Lactated Ringer's (Ringers, Lactated) 1,000 mls @ 1,000 mls/hr IV ASDIRECTED [facility] Stop: 07/20/16 09:31 Last Admin: 07/20/16 09:10 Dose: 1,000 mls/hr Levofloxacin/Dextrose 500 mg/ (Premix) 100 mls @ 100 mls/hr IV Q24H [facility] Last Admin: 07/20/16 09:22 Dose: 100 mls/hr Acetaminophen 1,000 mg/ Premix 100 mls @ 400 mls/hr IV Q6H [facility] Last Admin: 07/20/16 22:20 Dose: 400 mls/hr Lactated Ringer's (Ringers, Lactated) 1,000 mls @ 250 mls/hr IV ASDIRECTED [facility] Stop: 07/20/16 14:01 Last Admin: 07/20/16 11:04 Dose: 250 mls/hr Meropenem 1 gm/ Sodium (Chloride) 50 mls @ 100 mls/hr IV Q8H [facility] Last Admin: 07/20/16 11:41 Dose: 100 mls/hr Lactated Ringer's (Ringers, Lactated) 1,000 mls @ 999 mls/hr IV BOLUS ONE Stop: 07/20/16 17:19 Last Admin: 07/20/16 21:10 Dose: 999 mls/hr Lactated Ringer's (Ringers, Lactated) Confirm Administered Dose 1,000 mls @ as directed .ROUTE .STK-MED ONE Stop: 07/20/16 18:26 Lactated Ringer's (Ringers, Lactated) Confirm Administered Dose 1,000 mls @ as directed .ROUTE .STK-MED ONE Stop: 07/20/16 18:27 Dextrose/Lactated Ringer's (Dextrose 5%-Lactated Ringers) 1,000 mls @ 100 mls/ hr IV ASDIRECTED [facility] Stop: 07/23/16 09:59 Last Admin: 07/23/16 00:19 Dose: 100 mls/hr Lactated Ringer's (Ringers, Lactated) 1,000 mls @ 100 mls/hr IV ASDIRECTED [facility] Stop: 07/21/16 17:59 Last Admin: 07/21/16 07:22 Dose: 100 mls/hr Aztreonam 1 gm/ Sodium (Chloride) 50 mls @ 100 mls/hr IV Q8HR [facility] Last Admin: 07/21/16 05:06 Dose: 100 mls/hr Meropenem 500 mg/ Sodium (Chloride) 50 mls @ 100 mls/hr IV Q8H [facility] Last Admin: 07/26/16 05:17 Dose: 100 mls/hr Acetaminophen 1,000 mg/ Premix 100 mls @ 400 mls/hr IV Q6H [facility] Stop: 07/21/16 16:14 Last Admin: 07/21/16 17:12 Dose: 400 mls/hr Aztreonam/Dextrose 1 gm/ (Premix) 50 mls @ 100 mls/hr IV Q8HR [facility] Last Admin: 07/25/16 05:52 Dose: 100 mls/hr Lactated Ringer's (Ringers, Lactated) 1,000 mls @ 40 mls/hr IV ASDIRECTED [facility] Lactated Ringer's (Ringers, Lactated) 1,000 mls @ 40 mls/hr IV ASDIRECTED [facility] Last Admin: 07/23/16 03:55 Dose: 40 mls/hr Multivitamins/Minerals 10 ml/Chromium/Copper/Manganese/Seleni/Zn 1 ml/ Amino Ac/ Electrol/Dextrose/Calcium 1,011 mls @ 82 mls/hr IV .BY DURATION [facility] Last Admin: 07/23/16 10:23 Dose: 82 mls/hr Amino Ac/Electrol/Dextrose/Calcium (Clinimix E 15) 1,000 mls @ 82 mls/hr IV .BY DURATION [facility] Last Admin: 07/23/16 22:44 Dose: 82 mls/hr Lactated Ringer's (Ringers, Lactated) 1,000 mls @ 0 mls/hr IV ASDIRECTED [facility] PRN Reason: KVO Last Admin: 07/24/16 19:59 Dose: 25 mls/hr Acetaminophen 1,000 mg/ Premix 100 mls @ 400 mls/hr IV Q6H PRN PRN Reason: Pain Stop: 07/24/16 23:18 Last Admin: 07/24/16 20:14 Dose: 400 mls/hr Potassium Chloride 40 meq/ (Premix) 100 mls @ 25 mls/hr IV ONETIME ONE Stop: 07/24/16 12:29 Last Admin: 07/24/16 08:56 Dose: 25 mls/hr Potassium Chloride 20 meq/ (Premix) 100 mls @ 50 mls/hr IV ONETIME ONE Stop: 07/24/16 14:59 Last Admin: 07/24/16 12:31 Dose: 50 mls/hr Lactated Ringer's (Ringers, Lactated) 1,000 mls @ 25 mls/hr IV ASDIRECTED [facility] PRN Reason: KVO Acetaminophen 1,000 mg/ Premix 100 mls @ 400 mls/hr IV Q6H PRN PRN Reason: Pain Stop: 07/26/16 05:10 Last Admin: 07/26/16 03:58 Dose: 400 mls/hr Vancomycin HCl 1.75 gm/ Sodium (Chloride) 250 mls @ 167 mls/hr IV ONETIME ONE Stop: 07/25/16 12:29 Last Admin: 07/25/16 11:35 Dose: 167 mls/hr Ketorolac Tromethamine (Toradol) 60 mg IM ONETIME ONE Stop: 07/19/16 17:04 Last Admin: 07/19/16 17:30 Dose: 60 mg Labetalol HCl (Normodyne) 5 - 10 mg IV Q2H PRN PRN Reason: BP Last Admin: 07/25/16 05:19 Dose: 10 mg Labetalol HCl (Normodyne) Confirm Administered Dose 20 mg .ROUTE .STK-MED ONE Stop: 07/25/16 05:16 Last Admin: 07/25/16 08:49 Dose: Not Given Lidocaine HCl (Xylocaine 2% Jelly) 10 ml MUCMEM ONETIME ONE Stop: 07/16/16 21:15 Last Admin: 07/16/16 21:41 Dose: 10 ml Lidocaine/Epinephrine (Xylocaine 1% With Epinephrine 1:100,000) Confirm Administered Dose 50 ml .ROUTE .STK-MED ONE Stop: 07/22/16 06:41 Last Admin: 07/22/16 07:34 Dose: 20 ml Lorazepam (Ativan) 0.5 - 1 mg IVPUSH Q4H PRN PRN Reason: Anxiety Lorazepam (Ativan) 0.5 mg IVPUSH Q2H PRN PRN Reason: Anxiety Last Admin: 07/23/16 16:53 Dose: 0.5 mg Losartan Potassium (Cozaar) 50 mg PO DAILY [facility] Last Admin: 07/20/16 09:21 Dose: 50 mg Magnesium Citrate (Citrate Of Magnesia) 296 ml PO ONETIME ONE Stop: 07/18/16 09:01 Last Admin: 07/18/16 10:55 Dose: 296 ml Magnesium Hydroxide (Milk Of Magnesia) 30 ml PO ONETIME ONE Stop: 07/19/16 08:46 Last Admin: 07/19/16 10:27 Dose: 30 ml Magnesium Hydroxide (Milk Of Magnesia) 30 ml PO ONETIME ONE Stop: 07/26/16 09:01 Last Admin: 07/26/16 09:09 Dose: 30 ml Meperidine HCl (Demerol) 100 mg IM ONETIME ONE Stop: 07/20/16 16:01 Last Admin: 07/20/16 16:05 Dose: 100 mg Meperidine HCl (Demerol) 100 mg IM ONETIME ONE Stop: 07/22/16 06:14 Last Admin: 07/22/16 06:28 Dose: 100 mg Meropenem (Merrem) Confirm Administered Dose 500 mg .ROUTE .STK-MED ONE Stop: 07/16/16 06:43 Last Admin: 07/16/16 09:25 Dose: 500 mg Meropenem (Merrem) Confirm Administered Dose 2,000 mg .ROUTE .STK-MED ONE Stop: 07/20/16 17:25 Last Admin: 07/20/16 17:25 Dose: 2,000 mg Meropenem (Merrem) Confirm Administered Dose 500 mg .ROUTE .STK-MED ONE Stop: 07/22/16 06:41 Last Admin: 07/22/16 07:34 Dose: 500 mg Midazolam HCl (Versed 1 Mg/Ml) Confirm Administered Dose 2 mg .ROUTE .STK-MED ONE Stop: 07/20/16 16:46 Midazolam HCl (Versed 1 Mg/Ml) Confirm Administered Dose 2 mg .ROUTE .STK-MED ONE Stop: 07/22/16 07:04 Morphine Sulfate (Morphine Board Turner 150 Mg In 30 Ml) 150 mg IV ASDIRECTED [facility] PRN Reason: Protocol Last Admin: 07/22/16 06:49 Dose: 150 mg Morphine Sulfate (Morphine Board Turner 150 Mg In 30 Ml) 0 mg IV ASDIRECTED PRN; Protocol PRN Reason: PAIN Last Admin: 07/26/16 03:12 Dose: 150 mg Naloxone HCl (Narcan) 0.1 mg IV ASDIRECTED PRN PRN Reason: decreased respiratory rate Naloxone HCl (Narcan) 0.1 mg IV ASDIRECTED PRN PRN Reason: decreased respiratory rate Naloxone HCl (Narcan) Confirm Administered Dose 0.4 mg .ROUTE .STK-MED ONE Stop: 07/20/16 20:01 Naloxone HCl (Narcan) 0.1 mg IV ASDIRECTED PRN PRN Reason: decreased respiratory rate Neostigmine Methylsulfate (Neostigmine) Confirm Administered Dose 5 mg .ROUTE .STK-MED ONE Stop: 07/16/16 07:27 Neostigmine Methylsulfate (Neostigmine) Confirm Administered Dose 5 mg .ROUTE .STK-MED ONE Stop: 07/20/16 16:44 Nitroglycerin (Nitrostat) 0.4 mg SL Q5M PRN PRN Reason: CHEST PAIN Fentanyl Patch Check 0 each TOP DAILY [facility] Last Admin: 07/20/16 09:27 Dose: 1 each Fentanyl Patch Check 0 each TOP DAILY@2200 [facility] Last Admin: 07/20/16 22:19 Dose: Not Given Verify Fentanyl (Patch) 0 each TOP BID [facility] Last Admin: 07/24/16 23:12 Dose: Not Given Ondansetron HCl (Zofran) Confirm Administered Dose 4 mg .ROUTE .STK-MED ONE Stop: 07/16/16 07:27 Ondansetron HCl (Zofran) 4 mg IVPUSH Q4H PRN PRN Reason: NAUSEA Last Admin: 07/17/16 10:56 Dose: 4 mg Ondansetron HCl (Zofran) Confirm Administered Dose 4 mg .ROUTE .STK-MED ONE Stop: 07/20/16 16:44 Oxycodone/Acetaminophen (Percocet 325-5 Mg) 1 - 2 tab PO Q4H PRN PRN Reason: PAIN Last Admin: 07/20/16 03:34 Dose: 2 tab Pantoprazole Sodium (Protonix Iv) 40 mg IV Q24H [facility] Last Admin: 07/25/16 20:56 Dose: 40 mg Polyethylene Glycol (Miralax) 119 gm PO ONETIME ONE Stop: 07/20/16 10:01 Last Admin: 07/20/16 09:35 Dose: 119 gm Propofol (Diprivan 20 Ml) Confirm Administered Dose 200 mg .ROUTE .STK-MED ONE Stop: 07/16/16 07:27 Propofol (Diprivan 20 Ml) Confirm Administered Dose 200 mg .ROUTE .STK-MED ONE Stop: 07/20/16 16:44 Propofol (Diprivan 20 Ml) Confirm Administered Dose 200 mg .ROUTE .STK-MED ONE Stop: 07/22/16 07:04 Rocuronium Hortense (Zemuron) Confirm Administered Dose 50 mg .ROUTE .STK-MED ONE Stop: 07/16/16 07:27 Rocuronium Hortense (Zemuron) Confirm Administered Dose 50 mg .ROUTE .STK-MED ONE Stop: 07/20/16 16:44 Rocuronium Hortense (Zemuron) Confirm Administered Dose 50 mg .ROUTE .STK-MED ONE Stop: 07/20/16 18:24 Sodium Chloride (Saline Flush) 10 ml IV ASDIRECTED PRN PRN Reason: LINE FLUSH Succinylcholine Chloride (Succinylcholine In Ns Pf) Confirm Administered Dose 200 mg .ROUTE .STK-MED ONE Stop: 07/16/16 07:27 Succinylcholine Chloride (Succinylcholine In Ns Pf) Confirm Administered Dose 200 mg .ROUTE .STK-MED ONE Stop: 07/20/16 16:44 Tamsulosin HCl (Flomax) 0.4 mg PO BEDTIME [facility] Last Admin: 07/19/16 21:18 Dose: 0.4 mg Tamsulosin HCl (Flomax) 0.4 mg PO ONETIME ONE Stop: 07/17/16 09:01 Last Admin: 07/17/16 10:18 Dose: 0.4 mg Tamsulosin HCl (Flomax) 0.4 mg PO ONETIME ONE Stop: 07/24/16 08:31 Last Admin: 07/24/16 09:06 Dose: 0.4 mg Vancomycin HCl (Vancomycin) 1 gm IV .PHARMACY TO DOSE [facility] Stop: 07/25/16 12:00 - Exam Quality Assessment: No: supplemental oxygen General: alert, oriented, mild distress HEENT: Pupils equal Neck: supple Lungs: Clear to auscultation, Normal respiratory effort, Decreased breath sounds (mild left lung base) Cardiovascular: regular rate, regular rhythm Abdomen: soft, tenderness (superior portion of incision and incision just above the umbilicus) Extremities: no edema, no cyanosis Skin: warm, dry Wound/Incisions: drainage (pink tinged mildly purulent drainage from incision just superior to the umbilicus), erythema (mild along mid portion of staple line ) Psy/Mental Status: alert, anxious Consult PN Assessment/Plan Procedures: Procedures ASSAY OF TROPONIN QUANT (08/25/13) CARDIOVASCULAR STRESS TEST (11/07/14) CHEST X-RAY 1 VIEW FRONTAL (08/25/13) COMPLETE CBC W/AUTO DIFF WBC (08/25/13) COMPREHEN METABOLIC PANEL (08/25/13) ELECTROCARDIOGRAM REPORT (08/25/13) ELECTROCARDIOGRAM TRACING (08/25/13) EMERGENCY DEPT VISIT (08/25/13) EMERGENCY DEPT VISIT (08/25/13) HT MUSCLE IMAGE SPECT MULT (11/07/14) INITIAL OBSERVATION CARE (08/25/13) METABOLIC PANEL TOTAL CA (08/25/13) OBSERVATION CARE DISCHARGE (08/25/13) ROUTINE VENIPUNCTURE (08/25/13) THER/PROPH/DIAG INJ IV PUSH (08/25/13) TX/PRO/DX INJ NEW DRUG ADDON (08/25/13) Problem List Initiated/Reviewed/Updated: Yes My Orders last 24 hours: My Active Orders 07/26/16 09:40 HYDROmorphone [Dilaudid] 0.5 - 1 mg IVPUSH Q2H PRN oxyCODONE 5 - 10 mg PO Q4H PRN 07/26/16 09:41 LORazepam [Ativan] 0.5 mg PO Q4H PRN 07/26/16 09:44 Discontinue Telemetry Monitoring [Cardiac Monitoring Discontinue] [RC] Click to Edit 07/26/16 09:45 Fluconazole/Normal Saline [Diflucan in NS 200 MG/100 ML] 200 mg Premix Bag 1 bag IV Q24H 07/26/16 12:00 cefTRIAXone [Rocephin] 2 gm Sodium Chloride 0.9% [Normal Saline] 50 ml IV Q24H 07/26/16 21:00 Pantoprazole [Protonix] 40 mg PO BEDTIME 07/27/16 05:00 BASIC METABOLIC PANEL,BMP [CHEM] Timed CBC W/O DIFF,HEMOGRAM [HEME] Timed (1) Plan: ASSESSMENT AND RECOMMENDATIONS Possible wound infection - purulent drainage from lower part of her abdominal wound and cultures growing yeast with identification pending. This could be the source for his persistent temperature elevations and a cause for the pain that seems out of proportion to what would be expected this far out from surgery. 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 Cultures from surgery are growing enterococcus and Escherichia coli. CT scan yesterday did not show acute intra-abdominal pathology. -CT scan of the abdomen and pelvis to rule out developing abscess -Postoperative care per Dr. Youngblood -Blood cultures are pending -discontinue meropenem, start ceftriaxone -continue vancomycin for enterococcal coverage, because of his penicillin allergy -nutritional support with TPN ACUTE KIDNEY INJURY - likely secondary to hypotension related to sepsis, renal function has been stable for several days with good urine output. -Continue to monitor urine output and renal function closely STATUS POST ABDOMINAL WALL HERNIA REPAIR - no bowel movement for several days. CORONARY ARTERY DISEASE-asymptomatic Caden Momin M.D.
[2016-07-26] MEDS: oxyCODONE 5 MG Tab PO PRN ×3 (09:59→22:58)
[2016-07-26] MEDS ORDERED: Bisacodyl 5 MG Tab PO ONE (10:00)
[2016-07-26] MEDS: Fluconazole/Normal Saline 200 MG in Premix Bag 1 BAG IV SCH (10:19)
--- NOTE | 2016-07-26 10:57 | PN ---
DATE OF SERVICE: 07/23/2016 The patient had T-max 100.0. Vital signs otherwise stable. He was tending to be somewhat hypertensive, and I think we are entering a diuretic phase with CPK creeping up and BNP going from 276 yesterday to 3300 this morning. He also has quite a bit in way of ICU psychosis. At this point, the plan will be to give him some IV Lasix and, at this point, back down on the IV rate. We will give him some Haldol IV, as well as possibly Ativan, for the anxiety and the ICU psychosis type behavior. We will start some TPN today and otherwise work with maintaining pulmonary toilet. If he becomes more cooperative, we will begin getting him up and moving, but with the psychosis, he is certainly moving around in bed quite a bit. Pain control, at this point, appears to be reasonable. He is not taking any of the morphine [employer], but 50 mcg fentanyl patch appears to be reasonably controlling the pain. Otherwise, labs show creatinine down somewhat at 2.0, otherwise no major problems were noted on chemistries. White count is 14,000, hemoglobin 12. In summary, we will try to treat the ICU psychosis with Haldol, begin diuresis today, and then begin some TPN. The intraoperative cultures are growing Enterococcus and E. coli. The Enterococcus should be sensitive to the meropenem. The E. coli was resistant to both ampicillin as well as Unasyn, and the E. coli sensitive to both meropenem and Azactam. His antibiotic coverage at this point should probably be adequate. Meropenem should also provide coverage for any anaerobic organisms that have obviously not grown out at this point. Sg Youngblood MD /[id number]
[2016-07-26] MEDS: LORazepam 0.5 MG Tab PO PRN ×2 (11:06→19:54)
[2016-07-26] MEDS: Bisacodyl 10 MG Supp RECTAL SCH ×2 (11:15→21:21)
--- NOTE | 2016-07-26 11:31 | OR ---
DATE OF PROCEDURE: 07/20/2016 PREOPERATIVE DIAGNOSIS: Perforated viscus associated with massive colonic distention. POSTOPERATIVE DIAGNOSES: 1. Massive colonic distention associated with perforated small bowel proximal to the ileocecal valve at point of pelvic adhesion. 2. Contaminated intraperitoneal mesh. 3. Limited peripheral venous access. OPERATIVE PROCEDURE: 1. Insertion of left subclavian vein triple-lumen catheter (42888). 2. Exploratory laparotomy with. a. Total abdominal colectomy with ileorectal anastomosis (34316). b. Distal small bowel resection (68297). c. Drainage and irrigation of the lower abdominal and left upper quadrant peritonitis (78926). d. Removal of intraperitoneal mesh (42571). e. Tube gastrostomy (61022). ANESTHESIA: General. INDICATION FOR PROCEDURE: This is a 65-year-old, who had been battling with postoperative colonic distention, who presents this afternoon with severe worsening of his abdominal pain after having a fairly comfortable and stable day. A CT scan was obtained, which showed a large amount of free air, indicating perforated viscus. The plan at this point will be to proceed with an exploratory laparotomy and probable total abdominal colectomy. I think this is the case we will probably be doing an anastomosis with. We will need to rule out as much as possible any distal obstructing lesion, although none was seen on CT scan in terms of mass effects in the rectal area. The previously placed intraperitoneal mesh will likely need to be removed, and as discussed with the patient's , we will also likely place a tube gastrostomy, which will avoid the need for nasogastric suctioning in the postoperative period, along with insertion of a central line to facilitate postoperative management. Potential risks of the procedure were reviewed with the patient and , including bleeding, infection, leaks from GI tract closures, as well as possibility of cardiopulmonary, septic, or hemorrhagic complications leading to , and they wish to proceed. DETAILS OF PROCEDURE: The patient was taken to the operating room and placed in a supine position. After general endotracheal anesthesia was induced, a Villeda catheter was inserted, and the abdomen was prepped and draped. A nasogastric tube was also inserted at this time. A midline incision, which extended roughly a handsbreadth above the pubis to 3 cm below the xiphoid, was made and carried down through the full-thickness abdominal wall. Upon entering the peritoneal cavity, there appeared to be gross contamination by GI content involving the lower half of the abdomen and extending somewhat into the left upper quadrant. The contamination did not extend above the transverse mesocolon in the mid and right side of the abdomen. Initially, the colon was inspected, and no site of perforation could be identified. The rectum could be palpated down to the level of the pelvic floor quite well, and there is no palpable mass or obvious signs of obstructing lesion. Similarly, rectal exam had been performed after the patient's anesthetic had been induced, which did not find any obstructing-type masses in that area. Further inspection revealed area of adhesions to the small bowel at a point just proximal to the ileocecal valve, which were densely adherent to the area of the pelvic inlet. The patient has had previous abdominal hernia repairs, and I suspect there may have been some blood or bleeding or congenital adhesions resulting in that area of adhesion. At any rate, this appeared to be the point of the perforation. This was somewhat distal to the area of small bowel dissection that had been undertaken at the time of the recent hernia repair. Those areas were identifiable by the area of fibrin sealant that had been placed on the surface, and these areas were intact and entirely viable. Once the small bowel was mobilized upward with division with combination of blunt cautery and sharp dissection, the small bowel was divided proximal to the point of perforation and the point of perforation occluded temporarily with some [place] clamps. At that point, initial 4 L of meropenem-containing saline solution was used to irrigate the entire abdomen until all areas were clear. The patient had a strikingly distended colon diffusely, and it was confirmed at that point that we would proceed with a total abdominal colectomy, and it would appear to be reasonable to proceed with ileorectal anastomosis. The peritoneal reflection of the distal small bowel, cecum, and ascending colon were then divided and those areas mobilized medially with care taken to avoid injury to the underlying right ureter and duodenum. The transverse colon and hepatic flexure were then divided away from the omentum, as was the splenic flexure, and the mesentery across those areas was divided after initial division of the distal small bowel, right-sided colon, and hepatic flexure mesenteries with combination of vascular and mesenteric jarret. At this point, the upper rectum was divided with a KLARISSA stapler, and similarly the peritoneal reflection of the sigmoid colon and descending colon were divided and those areas swept medially. Finally, the area of the splenic flexure was from the splenic attachments, and the remaining mesentery of the abdominal colon was divided with a combination of vascular and mesenteric loads and that specimen, which consisted of a length of distal small bowel along with the site of perforation and the total abdominal colectomy, removed. After those areas had been delivered from the field, the abdomen was once again irrigated with some meropenem-containing saline solution. At this point, the distal small bowel appeared to accommodate a 28 mm EEA stapler. The divided end of the rectal staple line was initially opened and the anvil of that stapler then placed in the rectum. That area was then re-stapled and the anvil brought out through the apex of the rectal staple line. The divided end of the small bowel was then opened and the main body of the EEA stapler passed 3 cm centimeters into it, and after aligning the small bowel in terms of its mesenteric orientation, those 2 components of the stapler were connected and fired, thus creating the ileorectal anastomosis. Upon removal of the stapler, double donuts of mucosa were noted within it, and the small bowel was then closed off with a vascular staple line. The ileorectal anastomosis was then reinforced with some 3-0 Vicryl seromuscular stitch, along with fibrin sealant. Upon entrance into the abdomen, the intraperitoneal mesh as well as the previously placed Vicryl mesh were removed, as these were grossly contaminated. These were easily removed, as these were relatively fresh and not fixed in position in terms of scar formation at this point. Attention was then taken to the tube gastrostomy. Along the greater curvature of the stomach, a pursestring stitch of 3-0 Vicryl stitch was made. A 20-Japanese Villeda catheter was then brought through a stab wound in the left upper quadrant, and after opening the stomach, this was placed into the stomach and the balloon inflated with 10 mL of saline. The pursestring stitch was then tied up and the gastrostomy then pulled up against the abdominal wall with additional 3-0 Vicryl stitches used to reinforce the closure. At this point, the abdomen was washed out once again until all areas were entirely clear. Three Ricky-[place]ona drains were then placed on each side to generally drain the abdomen. The endoloop areas had been checked in terms of small bowel with no remaining areas of concern, and at that point, the midline fascia closed with a #2 Vicryl stitch. The skin and subcutaneous tissue were obviously at very high risk for wound infection and, therefore, were packed open with Iodoform gauze for planned subsequent delayed primary closure and dressing applied. At this point, the upper chest and neck areas were prepped and draped. The left subclavian vein triple-lumen catheter was placed using standard technique, and ports were flushed with heparinized saline and sutured with some 3-0 silk stitch. Dressing was applied. Subsequent chest x-ray showed good catheter position with its tip within the upper right atrium. The patient remained quite stable during the course of the procedure with no obvious periods of hypotension, and urine output appeared to be reasonably satisfactory. The patient was taken to the recovery room in stable condition. Sg Youngblood MD /[id number]
[2016-07-26] MEDS: Acetaminophen 325 MG Tab PO PRN ×2 (12:36→19:54)
[2016-07-26] MEDS: cefTRIAXone 2 GM in Sodium Chloride 0.9% 50 ML IV SCH (13:29)
[2016-07-26] MEDS: Tamsulosin 0.4 MG Cap.ER PO SCH (21:21)
[2016-07-26] MEDS: Pantoprazole 40 MG Tab.CR PO SCH (21:22)
[2016-07-27] MEDS: Acetaminophen 1,000 MG in Premix Bag 1 BAG IV PRN ×3 (00:38→15:33)
[2016-07-27] MEDS: 1: AA 5%/Calcium/D15W/Lytes 1,000 ML with MVI, Adult with Vitamin K 10 ML, Chromium/Copp IV SCH ×6 (01:53→14:28)
[2016-07-27] MEDS: LORazepam 0.5 MG Tab PO PRN ×3 (02:09→21:55)
[2016-07-27] MEDS: oxyCODONE 5 MG Tab PO PRN ×5 (02:56→21:55)
[2016-07-27] MEDS: Albuterol/Ipratropium 3.0-0.5 MG/3 ML Neb Soln INH SCH ×4 (07:16→20:33)
[2016-07-27] MEDS ORDERED: Central Total Parenteral Nutrition Bag SCH (08:45)
[2016-07-27] MEDS: busPIRone 5 MG Tab PO SCH ×2 (08:56→20:34)
[2016-07-27] MEDS: Losartan 50 MG Tab PO SCH (08:56)
[2016-07-27] MEDS: Fluconazole/Normal Saline 200 MG in Premix Bag 1 BAG IV SCH (09:03)
[2016-07-27] MEDS: Vancomycin 1.7 GM in Sodium Chloride 0.9% 250 ML IV SCH ×2 (11:54→23:43)
[2016-07-27] MEDS: cefTRIAXone 2 GM in Sodium Chloride 0.9% 50 ML IV SCH (13:22)
--- NOTE | 2016-07-27 14:27 | PCM.PN ---
- General Info Date of Service: 07/27/16 Functional Status: Reports: pain controlled, tolerating diet - Review of Systems General: Denies: Fever Gastrointestinal: Reports: Abdominal pain - Patient Data Vitals - most recent: Last Vital Signs Temp 37.2 C 07/27/16 11:00 Pulse 80 07/27/16 11:09 Resp 20 07/27/16 11:00 BP 152/78 H 07/27/16 11:00 Pulse Ox 98 07/27/16 11:09 Weight - most recent: 107.774 kg I&O - last 24 hours: Intake & Output 07/26/16 07/27/16 07/27/16 22:59 06:59 14:59 Intake Total 1186 6876 415 Output Total 232 4424 6877 Balance 427 -65 -[phone] Lab Results last 24 hrs: Laboratory Results - last 24 hr 07/27/16 07/27/16 07/27/16 Range/Units 04:00 05:00 10:26 WBC 17.4 H (4.5-11.0) K/uL RBC 4.28 L (4.30-5.90) M/uL Hgb 12.6 (12.0-15.0) g/dL Hct 38.7 L (40.0-54.0) % MCV 90 (80-98) fL MCH 29 (27-31) pg MCHC 33 (32-36) % Plt Count 324 (150-400) K/uL Sodium 151 H (140-148) mmol/L Potassium 3.7 (3.6-5.2) mmol/L Chloride 113 H (100-108) mmol/L Carbon Dioxide 29 (21-32) mmol/L Anion Gap 12.7 (5.0-14.0) mmol/L BUN 45 H (7-18) mg/dL Creatinine 1.5 H (0.8-1.3) mg/dL Est Cr Clr Drug Dosing 51.50 mL/min Estimated GFR (MDRD) 47 L (>60) Glucose 115 H (74-106) mg/dL Calcium 8.1 L (8.5-10.1) mg/dL Total Bilirubin 1.1 H (0.2-1.0) mg/dL AST 44 H (15-37) U/L ALT 59 (12-78) U/L Alkaline Phosphatase 33 L (46-116) U/L Total Protein 6.3 L (6.4-8.2) g/dL Albumin 2.9 L (3.4-5.0) g/dL Globulin 3.4 (2.3-3.5) g/dL Albumin/Globulin Ratio 0.9 L (1.2-2.2) Vancomycin Trough 13.7 (10.0-20.0) ug/mL Boby Results last 24 hrs: Microbiology 07/25/16 06:38 Gram Stain - Final Abdomen - Drainage Wound Culture - Final YEAST 07/25/16 06:38 Gram Stain - Final Abdomen - Drainage Wound Culture - Final YEAST Med Orders - Current: Current Medications Albuterol/Ipratropium (Duoneb 3.0-0.5 Mg/3 Ml) 3 ml INH QIDRT RUMA Last Admin: 07/27/16 11:09 Dose: 3 ml Albuterol/Ipratropium (Duoneb 3.0-0.5 Mg/3 Ml) 3 ml INH ASDIRECTED PRN PRN Reason: * Last Admin: 07/23/16 23:50 Dose: 3 ml Buspirone HCl (Buspar) 15 mg PO DAILY [facility] Last Admin: 07/27/16 08:56 Dose: 15 mg Buspirone HCl (Buspar) 7.5 mg PO BEDTIME [facility] Last Admin: 07/26/16 21:21 Dose: 7.5 mg Furosemide (Lasix) 20 mg IVPUSH Q8H [facility] Last Admin: 07/24/16 15:59 Dose: Not Given Heparin Sodium (Porcine) (Heparin Lock Flush 100 Units/Ml Syringe) 500 units FLUSH ASDIRECTED PRN PRN Reason: IV Use Last Admin: 07/26/16 04:30 Dose: 500 units Hydromorphone HCl (Dilaudid) 0.5 - 1 mg IVPUSH Q2H PRN PRN Reason: Pain (severe 7-10) Last Admin: 07/27/16 00:30 Dose: 1 mg Hydroxyzine HCl (Vistaril) 100 mg IM Q4H PRN PRN Reason: PAIN Last Admin: 07/26/16 12:16 Dose: 100 mg Fluconazole/Sodium Chloride (200 mg/ Premix) 100 mls @ 100 mls/hr IV Q24H [facility] Last Admin: 07/27/16 09:03 Dose: 100 mls/hr Ceftriaxone Sodium 2 gm/ (Sodium Chloride) 50 mls @ 100 mls/hr IV Q24H [facility] Last Admin: 07/27/16 13:22 Dose: 100 mls/hr Multivitamins/Minerals 10 ml/Chromium/Copper/Manganese/Seleni/Zn 1 ml/ Amino Ac/ Electrol/Dextrose/Calcium 1,011 mls @ 82 mls/hr IV .BY DURATION [facility] Last Admin: 07/26/16 12:58 Dose: 82 mls/hr Amino Ac/Electrol/Dextrose/Calcium (Clinimix E 15) 1,000 mls @ 82 mls/hr IV .BY DURATION [facility] Last Admin: 07/27/16 01:53 Dose: 82 mls/hr Acetaminophen 1,000 mg/ Premix 100 mls @ 400 mls/hr IV Q6H PRN PRN Reason: Pain Stop: 07/27/16 23:45 Last Admin: 07/27/16 10:16 Dose: 400 mls/hr Vancomycin HCl 1.7 gm/ Sodium (Chloride) 250 mls @ 167 mls/hr IV Q12H [facility] Last Admin: 07/27/16 11:54 Dose: 167 mls/hr Labetalol HCl (Normodyne) 0 mg IV Q2H PRN PRN Reason: BP Last Admin: 07/26/16 11:21 Dose: 10 mg Lorazepam (Ativan) 0.5 mg PO Q4H PRN PRN Reason: Anxiety Last Admin: 07/27/16 06:39 Dose: 0.5 mg Losartan Potassium (Cozaar) 50 mg PO DAILY [facility] Last Admin: 07/27/16 08:56 Dose: 50 mg Naloxone HCl (Narcan) 0.1 mg IV ASDIRECTED PRN PRN Reason: decreased respiratory rate Nitroglycerin (Nitrostat) 0.4 mg SL Q5M PRN PRN Reason: CHEST PAIN Non-Formulary Medication (Total Parenteral Nutrition, Central) 1,000 ml .XX .Continue Order [facility] Stop: 07/27/16 16:00 Ondansetron HCl (Zofran) 4 mg IVPUSH Q4H PRN PRN Reason: NAUSEA Oxycodone HCl (Oxycodone) 5 - 10 mg PO Q4H PRN PRN Reason: Pain Last Admin: 07/27/16 13:27 Dose: 10 mg Pantoprazole Sodium (Protonix) 40 mg PO BEDTIME [facility] Last Admin: 07/26/16 21:22 Dose: 40 mg Tamsulosin HCl (Flomax) 0.4 mg PO BEDTIME [facility] Last Admin: 07/26/16 21:21 Dose: 0.4 mg Discontinued Medications Acetaminophen (Tylenol) 650 mg PO Q4H PRN PRN Reason: Fever Last Admin: 07/26/16 19:54 Dose: 650 mg Albuterol (Proventil Neb Soln) 2.5 mg NEB Q4H PRN PRN Reason: Dyspnea Last Admin: 07/20/16 16:13 Dose: 2.5 mg Bacitracin (Bacitracin Oint) 0 gm TOP TID [facility] Last Admin: 07/20/16 13:58 Dose: 1 applic Bisacodyl (Dulcolax) 10 mg PO BID [facility] Last Admin: 07/20/16 09:22 Dose: 10 mg Bisacodyl (Dulcolax) 10 mg RECTAL BID PRN PRN Reason: Constipation Last Admin: 07/19/16 17:31 Dose: 10 mg Bisacodyl (Dulcolax) 20 mg PO ONETIME ONE Stop: 07/26/16 10:01 Last Admin: 07/26/16 09:09 Dose: 20 mg Bisacodyl (Dulcolax) 10 mg RECTAL BID [facility] Last Admin: 07/26/16 21:21 Dose: 10 mg Bupivacaine HCl (Marcaine 0.5%) Confirm Administered Dose 50 ml .ROUTE .STK-MED ONE Stop: 07/22/16 06:41 Last Admin: 07/22/16 07:34 Dose: 20 ml Bupivacaine HCl/Epinephrine Bitart (Marcaine 0.5%/Epinephrine 1:200,000) Confirm Administered Dose 50 ml .ROUTE .STK-MED ONE Stop: 07/16/16 06:43 Last Admin: 07/16/16 07:28 Dose: 10 ml Buspirone HCl (Buspar) 15 mg PO DAILY [facility] Last Admin: 07/20/16 09:21 Dose: 15 mg Buspirone HCl (Buspar) 7.5 mg PO QPM [facility] Last Admin: 07/20/16 17:57 Dose: Not Given Dexamethasone (Dexamethasone) Confirm Administered Dose 4 mg .ROUTE .STK-MED ONE Stop: 07/16/16 07:27 Dexamethasone (Dexamethasone) Confirm Administered Dose 4 mg .ROUTE .STK-MED ONE Stop: 07/20/16 16:44 Diatrizoate Meglum/Diatrizoate Sod (Gastrografin 37%) 1,200 ml .XX . DIRECTED RUMA Stop: 07/20/16 14:16 Last Admin: 07/20/16 15:27 Dose: 1,200 ml Fentanyl (Sublimaze) Confirm Administered Dose 500 mcg .ROUTE .STK-MED ONE Stop: 07/16/16 07:27 Fentanyl (Sublimaze) Confirm Administered Dose 250 mcg .ROUTE .STK-MED ONE Stop: 07/16/16 09:21 Fentanyl (Duragesic) 25 mcg TRDERM Q72H [facility] Last Admin: 07/20/16 09:24 Dose: 25 mcg Fentanyl (Sublimaze) Confirm Administered Dose 250 mcg .ROUTE .STK-MED ONE Stop: 07/20/16 16:45 Fentanyl (Sublimaze) Confirm Administered Dose 250 mcg .ROUTE .STK-MED ONE Stop: 07/20/16 18:24 Fentanyl (Duragesic) 25 mcg TRDERM Q72H [facility] Last Admin: 07/20/16 22:18 Dose: Not Given Fentanyl (Duragesic) 25 mcg TRDERM Q72H [facility] Fentanyl (Sublimaze) Confirm Administered Dose 100 mcg .ROUTE .STK-MED ONE Stop: 07/22/16 07:04 Fentanyl (Duragesic) 50 mcg TRDERM Q72H [facility] Last Admin: 07/22/16 09:40 Dose: 50 mcg Glycopyrrolate () Confirm Administered Dose 1 mg .ROUTE .STK-MED ONE Stop: 07/16/16 07:27 Glycopyrrolate () Confirm Administered Dose 1 mg .ROUTE .STK-MED ONE Stop: 07/20/16 16:44 Haloperidol Lactate (Haldol) 2.5 mg IVPUSH ONETIME ONE Stop: 07/23/16 06:18 Last Admin: 07/23/16 06:26 Dose: 2.5 mg Haloperidol Lactate (Haldol) 2.5 mg IVPUSH Q1H PRN PRN Reason: PSYCHOSIS/ANXIETY Last Admin: 07/23/16 18:10 Dose: 2.5 mg Heparin Sodium (Porcine) (Heparin Lock Flush 100 Units/Ml Syringe) Confirm Administered Dose 500 units .ROUTE .[facility]-MED ONE Stop: 07/20/16 17:25 Last Admin: 07/20/16 17:28 Dose: 500 units Heparin Sodium (Porcine) (Heparin Sodium) Confirm Administered Dose 5,[address] .[facility] ONE Stop: 07/20/16 20:54 Last Admin: 07/20/16 21:06 Dose: 5,000 units Hydromorphone HCl (Dilaudid [employer] 15 Mg In Ns 30 Ml) 0 mg IV ASDIRECTED PRN; Protocol PRN Reason: Pain Last Admin: 07/16/16 07:37 Dose: 0.3 mg Hydromorphone HCl (Dilaudid [employer] 15 Mg In Ns 30 Ml) 0 mg IV ASDIRECTED PRN; Protocol PRN Reason: PAIN Last Admin: 07/20/16 07:38 Dose: 15 mg Hydromorphone HCl (Dilaudid [employer] 15 Mg In Ns 30 Ml) 0 mg IV ASDIRECTED PRN; Protocol PRN Reason: PAIN Last Admin: 07/21/16 07:19 Dose: 15 mg Hydroxyzine HCl (Vistaril) 100 mg IM Q4H PRN PRN Reason: Pain Last Admin: 07/20/16 14:41 Dose: 100 mg Hydroxyzine HCl (Vistaril) 50 mg IM ONETIME ONE Stop: 07/22/16 06:14 Last Admin: 07/22/16 06:29 Dose: 50 mg Clindamycin Phosphate 900 mg/ (Sodium Chloride) 106 mls @ 212 mls/hr IV ONETIME ONE Stop: 07/16/16 07:59 Last Admin: 07/16/16 07:48 Dose: 212 mls/hr Dextrose/Lactated Ringer's (Dextrose 5%-Lactated Ringers) 1,000 mls @ 100 mls/ hr IV ASDIRECTED [facility] Last Admin: 07/16/16 07:37 Dose: 100 mls/hr Lactated Ringer's (Ringers, Lactated) Confirm Administered Dose 1,000 mls @ as directed .ROUTE .[facility] ONE Stop: 07/16/16 09:17 Dextrose/Lactated Ringer's (Dextrose 5%-Lactated Ringers) 1,000 mls @ 150 mls/ hr IV ASDIRECTED RUMA Last Admin: 07/18/16 04:26 Dose: 150 mls/hr Cefazolin Sodium 2 gm/ Sodium (Chloride) 50 mls @ 100 mls/hr IV Q8H [facility] Stop: 07/17/16 06:29 Last Admin: 07/17/16 05:08 Dose: 100 mls/hr Dextrose/Lactated Ringer's (Dextrose 5%-Lactated Ringers) 1,000 mls @ 100 mls/ hr IV ASDIRECTED [facility] Last Admin: 07/19/16 14:53 Dose: 100 mls/hr Acetaminophen 1,000 mg/ Premix 100 mls @ 400 mls/hr IV Q6H PRN PRN Reason: PAIN Stop: 07/20/16 10:30 Acetaminophen 1,000 mg/ Premix 100 mls @ 400 mls/hr IV NOW ONE Stop: 07/20/16 07:32 Last Admin: 07/20/16 07:31 Dose: 400 mls/hr Lactated Ringer's (Ringers, Lactated) 1,000 mls @ [facility] Stop: 07/20/16 09:31 Last Admin: 07/20/16 09:10 Dose: 1,000 mls/hr Levofloxacin/Dextrose 500 mg/ (Premix) 100 mls @ 100 mls/hr IV Q24H [facility] Last Admin: 07/20/16 09:22 Dose: 100 mls/hr Acetaminophen 1,000 mg/ Premix 100 mls @ 400 mls/hr IV Q6H [facility] Last Admin: 07/20/16 22:20 Dose: 400 mls/hr Lactated Ringer's (Ringers, Lactated) 1,000 mls @ 250 mls/hr IV ASDIRECTED [facility] Stop: 07/20/16 14:01 Last Admin: 07/20/16 11:04 Dose: 250 mls/hr Meropenem 1 gm/ Sodium (Chloride) 50 mls @ 100 mls/hr IV Q8H [facility] Last Admin: 07/20/16 11:41 Dose: 100 mls/hr Lactated Ringer's (Ringers, Lactated) 1,000 mls @ 999 mls/hr IV BOLUS ONE Stop: 07/20/16 17:19 Last Admin: 07/20/16 21:10 Dose: 999 mls/hr Lactated Ringer's (Ringers, Lactated) Confirm Administered Dose 1,000 mls @ as directed .ROUTE .[facility] ONE Stop: 07/20/16 18:26 Lactated Ringer's (Ringers, Lactated) Confirm Administered Dose 1,000 mls @ as directed .ROUTE .[facility] ONE Stop: 07/20/16 18:27 Dextrose/Lactated Ringer's (Dextrose 5%-Lactated Ringers) 1,000 mls @ 100 mls/ hr IV ASDIRECTED [facility] Stop: 07/23/16 09:59 Last Admin: 07/23/16 00:19 Dose: 100 mls/hr Lactated Ringer's (Ringers, Lactated) 1,000 mls @ 100 mls/hr IV ASDIRECTED [facility] Stop: 07/21/16 17:59 Last Admin: 07/21/16 07:22 Dose: 100 mls/hr Aztreonam 1 gm/ Sodium (Chloride) 50 mls @ 100 mls/hr IV Q8HR [facility] Last Admin: 07/21/16 05:06 Dose: 100 mls/hr Meropenem 500 mg/ Sodium (Chloride) 50 mls @ 100 mls/hr IV Q8H [facility] Last Admin: 07/26/16 05:17 Dose: 100 mls/hr Acetaminophen 1,000 mg/ Premix 100 mls @ 400 mls/hr IV Q6H [facility] Stop: 07/21/16 16:14 Last Admin: 07/21/16 17:12 Dose: 400 mls/hr Aztreonam/Dextrose 1 gm/ (Premix) 50 mls @ 100 mls/hr IV Q8HR [facility] Last Admin: 07/25/16 05:52 Dose: 100 mls/hr Lactated Ringer's (Ringers, Lactated) 1,000 mls @ 40 mls/hr IV ASDIRECTED [facility] Lactated Ringer's (Ringers, Lactated) 1,000 mls @ 40 mls/hr IV ASDIRECTED [facility] Last Admin: 07/23/16 03:55 Dose: 40 mls/hr Albumin Human 12.5 gm/ Premix 50 mls @ 25 mls/hr IV Q24H [facility] Stop: 07/26/16 10:59 Last Admin: 07/26/16 09:09 Dose: 25 mls/hr Albumin Human 12.5 gm/ Premix 50 mls @ 25 mls/hr IV Q24H [facility] Stop: 07/26/16 12:59 Last Admin: 07/26/16 10:44 Dose: 25 mls/hr Albumin Human 12.5 gm/ Premix 50 mls @ 25 mls/hr IV Q24H [facility] Stop: 07/26/16 14:59 Last Admin: 07/26/16 12:45 Dose: 25 mls/hr Albumin Human 12.5 gm/ Premix 50 mls @ 25 mls/hr IV Q24H [facility] Stop: 07/26/16 16:59 Last Admin: 07/26/16 15:09 Dose: 25 mls/hr Multivitamins/Minerals 10 ml/Chromium/Copper/Manganese/Seleni/Zn 1 ml/ Amino Ac/ Electrol/Dextrose/Calcium 1,011 mls @ 82 mls/hr IV .BY DURATION [facility] Last Admin: 07/23/16 10:23 Dose: 82 mls/hr Amino Ac/Electrol/Dextrose/Calcium (Clinimix E 09/27) 1,000 mls @ 82 mls/hr IV .BY DURATION [facility] Last Admin: 07/23/16 22:44 Dose: 82 mls/hr Lactated Ringer's (Ringers, Lactated) 1,000 mls @ 0 mls/hr IV ASDIRECTED [facility] PRN Reason: KVO Last Admin: 07/24/16 19:59 Dose: 25 mls/hr Acetaminophen 1,000 mg/ Premix 100 mls @ 400 mls/hr IV Q6H PRN PRN Reason: Pain Stop: 07/24/16 23:18 Last Admin: 07/24/16 20:14 Dose: 400 mls/hr Potassium Chloride 40 meq/ (Premix) 100 mls @ 25 mls/hr IV ONETIME ONE Stop: 07/24/16 12:29 Last Admin: 07/24/16 08:56 Dose: 25 mls/hr Potassium Chloride 20 meq/ (Premix) 100 mls @ 50 mls/hr IV ONETIME ONE Stop: 07/24/16 14:59 Last Admin: 07/24/16 12:31 Dose: 50 mls/hr Multivitamins/Minerals 10 ml/Chromium/Copper/Manganese/Seleni/Zn 1 ml/ Amino Ac/ Electrol/Dextrose/Calcium 1,011 mls @ 82 mls/hr IV .BY DURATION [facility] Last Admin: 07/25/16 13:40 Dose: 82 mls/hr Amino Ac/Electrol/Dextrose/Calcium (Clinimix E 09/27) 1,000 mls @ 82 mls/hr IV .BY DURATION [facility] Last Admin: 07/26/16 00:18 Dose: 82 mls/hr Lactated Ringer's (Ringers, Lactated) 1,000 mls @ 25 mls/hr IV ASDIRECTED [facility] PRN Reason: KVO Acetaminophen 1,000 mg/ Premix 100 mls @ 400 mls/hr IV Q6H PRN PRN Reason: Pain Stop: 07/26/16 05:10 Last Admin: 07/26/16 03:58 Dose: 400 mls/hr Vancomycin HCl 1.75 gm/ Sodium (Chloride) 250 mls @ 167 mls/hr IV ONETIME ONE Stop: 07/25/16 12:29 Last Admin: 07/25/16 11:35 Dose: 167 mls/hr Vancomycin HCl 1.5 gm/ Sodium (Chloride) 250 mls @ 167 mls/hr IV Q12H [facility] Last Admin: 07/26/16 22:58 Dose: 167 mls/hr Ketorolac Tromethamine (Toradol) 60 mg IM ONETIME ONE Stop: 07/19/16 17:04 Last Admin: 07/19/16 17:30 Dose: 60 mg Labetalol HCl (Normodyne) 5 - 10 mg IV Q2H PRN PRN Reason: BP Last Admin: 07/25/16 05:19 Dose: 10 mg Labetalol HCl (Normodyne) Confirm Administered Dose 20 mg .ROUTE .STK-MED ONE Stop: 07/25/16 05:16 Last Admin: 07/25/16 08:49 Dose: Not Given Lidocaine HCl (Xylocaine 2% Jelly) 10 ml MUCMEM ONETIME ONE Stop: 07/16/16 21:15 Last Admin: 07/16/16 21:41 Dose: 10 ml Lidocaine/Epinephrine (Xylocaine 1% With Epinephrine 1:100,000) Confirm Administered Dose 50 ml .ROUTE .STK-MED ONE Stop: 07/22/16 06:41 Last Admin: 07/22/16 07:34 Dose: 20 ml Lorazepam (Ativan) 0.5 - 1 mg IVPUSH Q4H PRN PRN Reason: Anxiety Lorazepam (Ativan) 0.5 mg IVPUSH Q2H PRN PRN Reason: Anxiety Last Admin: 07/23/16 16:53 Dose: 0.5 mg Losartan Potassium (Cozaar) 50 mg PO DAILY RUMA Last Admin: 07/20/16 09:21 Dose: 50 mg Magnesium Citrate (Citrate Of Magnesia) 296 ml PO ONETIME ONE Stop: 07/18/16 09:01 Last Admin: 07/18/16 10:55 Dose: 296 ml Magnesium Hydroxide (Milk Of Magnesia) 30 ml PO ONETIME ONE Stop: 07/19/16 08:46 Last Admin: 07/19/16 10:27 Dose: 30 ml Magnesium Hydroxide (Milk Of Magnesia) 30 ml PO ONETIME ONE Stop: 07/26/16 09:01 Last Admin: 07/26/16 09:09 Dose: 30 ml Meperidine HCl (Demerol) 100 mg IM ONETIME ONE Stop: 07/20/16 16:01 Last Admin: 07/20/16 16:05 Dose: 100 mg Meperidine HCl (Demerol) 100 mg IM ONETIME ONE Stop: 07/22/16 06:14 Last Admin: 07/22/16 06:28 Dose: 100 mg Meropenem (Merrem) Confirm Administered Dose 500 mg .ROUTE .STK-MED ONE Stop: 07/16/16 06:43 Last Admin: 07/16/16 09:25 Dose: 500 mg Meropenem (Merrem) Confirm Administered Dose 2,000 mg .ROUTE .STK-MED ONE Stop: 07/20/16 17:25 Last Admin: 07/20/16 17:25 Dose: 2,000 mg Meropenem (Merrem) Confirm Administered Dose 500 mg .ROUTE .STK-MED ONE Stop: 07/22/16 06:41 Last Admin: 07/22/16 07:34 Dose: 500 mg Midazolam HCl (Versed 1 Mg/Ml) Confirm Administered Dose 2 mg .ROUTE .STK-MED ONE Stop: 07/20/16 16:46 Midazolam HCl (Versed 1 Mg/Ml) Confirm Administered Dose 2 mg .ROUTE .STK-MED ONE Stop: 07/22/16 07:04 Morphine Sulfate (Morphine [employer] 150 Mg In 30 Ml) 150 mg IV ASDIRECTED RUMA PRN Reason: Protocol Last Admin: 07/22/16 06:49 Dose: 150 mg Morphine Sulfate (Morphine [employer] 150 Mg In 30 Ml) 0 mg IV ASDIRECTED PRN; Protocol PRN Reason: PAIN Last Admin: 07/26/16 03:12 Dose: 150 mg Naloxone HCl (Narcan) 0.1 mg IV ASDIRECTED PRN PRN Reason: decreased respiratory rate Naloxone HCl (Narcan) 0.1 mg IV ASDIRECTED PRN PRN Reason: decreased respiratory rate Naloxone HCl (Narcan) Confirm Administered Dose 0.4 mg .ROUTE .STK-MED ONE Stop: 07/20/16 20:01 Naloxone HCl (Narcan) 0.1 mg IV ASDIRECTED PRN PRN Reason: decreased respiratory rate Neostigmine Methylsulfate (Neostigmine) Confirm Administered Dose 5 mg .ROUTE .STK-MED ONE Stop: 07/16/16 07:27 Neostigmine Methylsulfate (Neostigmine) Confirm Administered Dose 5 mg .ROUTE .STK-MED ONE Stop: 07/20/16 16:44 Nitroglycerin (Nitrostat) 0.4 mg SL Q5M PRN PRN Reason: CHEST PAIN Fentanyl Patch Check 0 each TOP DAILY [facility] Last Admin: 07/20/16 09:27 Dose: 1 each Fentanyl Patch Check 0 each TOP DAILY@2200 [facility] Last Admin: 07/20/16 22:19 Dose: Not Given Verify Fentanyl (Patch) 0 each TOP BID [facility] Last Admin: 07/24/16 23:12 Dose: Not Given Ondansetron HCl (Zofran) Confirm Administered Dose 4 mg .ROUTE .STK-MED ONE Stop: 07/16/16 07:27 Ondansetron HCl (Zofran) 4 mg IVPUSH Q4H PRN PRN Reason: NAUSEA Last Admin: 07/17/16 10:56 Dose: 4 mg Ondansetron HCl (Zofran) Confirm Administered Dose 4 mg .ROUTE .STK-MED ONE Stop: 07/20/16 16:44 Oxycodone/Acetaminophen (Percocet 325-5 Mg) 1 - 2 tab PO Q4H PRN PRN Reason: PAIN Last Admin: 07/20/16 03:34 Dose: 2 tab Pantoprazole Sodium (Protonix Iv) 40 mg IV Q24H [facility] Last Admin: 07/25/16 20:56 Dose: 40 mg Polyethylene Glycol (Miralax) 119 gm PO ONETIME ONE Stop: 07/20/16 10:01 Last Admin: 07/20/16 09:35 Dose: 119 gm Propofol (Diprivan 20 Ml) Confirm Administered Dose 200 mg .ROUTE .STK-MED ONE Stop: 07/16/16 07:27 Propofol (Diprivan 20 Ml) Confirm Administered Dose 200 mg .ROUTE .STK-MED ONE Stop: 07/20/16 16:44 Propofol (Diprivan 20 Ml) Confirm Administered Dose 200 mg .ROUTE .STK-MED ONE Stop: 07/22/16 07:04 Rocuronium [place] (Zemuron) Confirm Administered Dose 50 mg .ROUTE .STK-MED ONE Stop: 07/16/16 07:27 Rocuronium [place] (Zemuron) Confirm Administered Dose 50 mg .ROUTE .STK-MED ONE Stop: 07/20/16 16:44 Rocuronium [place] (Zemuron) Confirm Administered Dose 50 mg .ROUTE .STK-MED ONE Stop: 07/20/16 18:24 Sodium Chloride (Saline Flush) 10 ml IV ASDIRECTED PRN PRN Reason: LINE FLUSH Succinylcholine Chloride (Succinylcholine In Ns Pf) Confirm Administered Dose 200 mg .ROUTE .STK-MED ONE Stop: 07/16/16 07:27 Succinylcholine Chloride (Succinylcholine In Ns Pf) Confirm Administered Dose 200 mg .ROUTE .STK-MED ONE Stop: 07/20/16 16:44 Tamsulosin HCl (Flomax) 0.4 mg PO BEDTIME [facility] Last Admin: 07/19/16 21:18 Dose: 0.4 mg Tamsulosin HCl (Flomax) 0.4 mg PO ONETIME ONE Stop: 07/17/16 09:01 Last Admin: 07/17/16 10:18 Dose: 0.4 mg Tamsulosin HCl (Flomax) 0.4 mg PO ONETIME ONE Stop: 07/24/16 08:31 Last Admin: 07/24/16 09:06 Dose: 0.4 mg Vancomycin HCl (Vancomycin) 1 gm IV .PHARMACY TO DOSE [facility] Stop: 07/25/16 12:00 - Exam Quality Assessment: No: supplemental oxygen General: alert, oriented, cooperative, no acute distress Neck: supple Lungs: Normal respiratory effort Cardiovascular: Regular Rate, Regular Rhythm Abdomen: soft, no distension, tenderness Extremities: no edema, no cyanosis Skin: warm, dry Wound/Incisions: drainage (mild ss drainage from midline surgical wound 1 cm superior to umbilicus ) Psy/Mental Status: alert, normal affect - My Orders Last 24 Hours: My Active Orders 07/26/16 21:00 Pantoprazole [Protonix] 40 mg PO BEDTIME 07/27/16 Dinner Full Liquid Diet [DIET] 07/28/16 05:00 BASIC METABOLIC PANEL,BMP [CHEM] Timed CBC W/O DIFF,HEMOGRAM [HEME] Timed (1)
--- NOTE | 2016-07-27 15:54 | PCM.CONSN ---
- General Info Date of Service: 07/27/16 Functional Status: Reports: pain controlled, tolerating diet - Review of Systems General: Denies: Fever Gastrointestinal: Reports: Abdominal pain Systems Review Comment:: no acute events overnight. Abdominal pain is a little better controlled today. Drainage from the incision just above his umbilicus seems to be decreasing a little bit. Fever curve improved overnight. Erythema around the staple line seems to have improved compared to yesterday. He has been up and walking a couple of times with moderate to moderately severe abdominal pain around the incision. Tolerating clear liquids with no nausea or increase in pain. Multiple bowel movements yesterday. - Patient Data Vitals - most recent: Last Vital Signs Temp 37.7 C 07/27/16 15:00 Pulse 76 07/27/16 15:00 Resp 18 07/27/16 15:00 BP 145/85 H 07/27/16 15:00 Pulse Ox 94 L 07/27/16 15:00 Weight - most recent: 107.774 kg I&O - last 24 hours: Intake & Output 07/27/16 07/27/16 07/27/16 06:59 14:59 22:59 Intake Total 1924 457 100 Output Total 1977 1555 Balance -53 -1098 100 Lab Results last 24 hrs: Laboratory Results - last 24 hr 07/27/16 07/27/16 07/27/16 Range/Units 04:00 05:00 10:26 WBC 17.4 H (4.5-11.0) K/uL RBC 4.28 L (4.30-5.90) M/uL Hgb 12.6 (12.0-15.0) g/dL Hct 38.7 L (40.0-54.0) % MCV 90 (80-98) fL MCH 29 (27-31) pg MCHC 33 (32-36) % Plt Count 324 (150-400) K/uL Sodium 151 H (140-148) mmol/L Potassium 3.7 (3.6-5.2) mmol/L Chloride 113 H (100-108) mmol/L Carbon Dioxide 29 (21-32) mmol/L Anion Gap 12.7 (5.0-14.0) mmol/L BUN 45 H (7-18) mg/dL Creatinine 1.5 H (0.8-1.3) mg/dL Est Cr Clr Drug Dosing 51.50 mL/min Estimated GFR (MDRD) 47 L (>60) Glucose 115 H (74-106) mg/dL Calcium 8.1 L (8.5-10.1) mg/dL Total Bilirubin 1.1 H (0.2-1.0) mg/dL AST 44 H (15-37) U/L ALT 59 (12-78) U/L Alkaline Phosphatase 33 L (46-116) U/L Total Protein 6.3 L (6.4-8.2) g/dL Albumin 2.9 L (3.4-5.0) g/dL Globulin 3.4 (2.3-3.5) g/dL Albumin/Globulin Ratio 0.9 L (1.2-2.2) Vancomycin Trough 13.7 (10.0-20.0) ug/mL Boby Results last 24 hrs: Microbiology 07/25/16 06:38 Gram Stain - Final Abdomen - Drainage Wound Culture - Final YEAST 07/25/16 06:38 Gram Stain - Final Abdomen - Drainage Wound Culture - Final YEAST Med Orders - Current: Current Medications Albuterol/Ipratropium (Duoneb 3.0-0.5 Mg/3 Ml) 3 ml INH QIDRT [facility] Last Admin: 07/27/16 14:31 Dose: 3 ml Albuterol/Ipratropium (Duoneb 3.0-0.5 Mg/3 Ml) 3 ml INH ASDIRECTED PRN PRN Reason: * Last Admin: 07/23/16 23:50 Dose: 3 ml Buspirone HCl (Buspar) 15 mg PO DAILY [facility] Last Admin: 07/27/16 08:56 Dose: 15 mg Buspirone HCl (Buspar) 7.5 mg PO BEDTIME [facility] Last Admin: 07/26/16 21:21 Dose: 7.5 mg Lidocaine HCl 30 ml/ Al Hydroxide/Mg Hydroxide 30 ml/Diphenhydramine HCl 75 mg 0 ml PO QID [facility] Furosemide (Lasix) 20 mg IVPUSH Q8H [facility] Last Admin: 07/24/16 15:59 Dose: Not Given Heparin Sodium (Porcine) (Heparin Lock Flush 100 Units/Ml Syringe) 500 units FLUSH ASDIRECTED PRN PRN Reason: IV Use Last Admin: 07/26/16 04:30 Dose: 500 units Hydromorphone HCl (Dilaudid) 0.5 - 1 mg IVPUSH Q2H PRN PRN Reason: Pain (severe 7-10) Last Admin: 07/27/16 00:30 Dose: 1 mg Hydroxyzine HCl (Vistaril) 100 mg IM Q4H PRN PRN Reason: PAIN Last Admin: 07/26/16 12:16 Dose: 100 mg Fluconazole/Sodium Chloride (200 mg/ Premix) 100 mls @ 100 mls/hr IV Q24H [facility] Last Admin: 07/27/16 09:03 Dose: 100 mls/hr Ceftriaxone Sodium 2 gm/ (Sodium Chloride) 50 mls @ 100 mls/hr IV Q24H [facility] Last Admin: 07/27/16 13:22 Dose: 100 mls/hr Multivitamins/Minerals 10 ml/Chromium/Copper/Manganese/Seleni/Zn 1 ml/ Amino Ac/ Electrol/Dextrose/Calcium 1,011 mls @ 82 mls/hr IV .BY DURATION [facility] Last Admin: 07/27/16 14:28 Dose: 82 mls/hr Amino Ac/Electrol/Dextrose/Calcium (Clinimix E 5/15) 1,000 mls @ 82 mls/hr IV .BY DURATION [facility] Last Admin: 07/27/16 01:53 Dose: 82 mls/hr Acetaminophen 1,000 mg/ Premix 100 mls @ 400 mls/hr IV Q6H PRN PRN Reason: Pain Stop: 07/27/16 23:45 Last Admin: 07/27/16 15:33 Dose: 400 mls/hr Vancomycin HCl 1.7 gm/ Sodium (Chloride) 250 mls @ 167 mls/hr IV Q12H [facility] Last Admin: 07/27/16 11:54 Dose: 167 mls/hr Labetalol HCl (Normodyne) 0 mg IV Q2H PRN PRN Reason: BP Last Admin: 07/26/16 11:21 Dose: 10 mg Lorazepam (Ativan) 0.5 mg PO Q4H PRN PRN Reason: Anxiety Last Admin: 07/27/16 06:39 Dose: 0.5 mg Losartan Potassium (Cozaar) 50 mg PO DAILY [facility] Last Admin: 07/27/16 08:56 Dose: 50 mg Naloxone HCl (Narcan) 0.1 mg IV ASDIRECTED PRN PRN Reason: decreased respiratory rate Nitroglycerin (Nitrostat) 0.4 mg SL Q5M PRN PRN Reason: CHEST PAIN Non-Formulary Medication (Total Parenteral Nutrition, Central) 1,000 ml .XX .Continue Order [facility] Stop: 07/27/16 16:00 Ondansetron HCl (Zofran) 4 mg IVPUSH Q4H PRN PRN Reason: NAUSEA Oxycodone HCl (Oxycodone) 5 - 10 mg PO Q4H PRN PRN Reason: Pain Last Admin: 07/27/16 13:27 Dose: 10 mg Pantoprazole Sodium (Protonix) 40 mg PO BEDTIME [facility] Last Admin: 07/26/16 21:22 Dose: 40 mg Tamsulosin HCl (Flomax) 0.4 mg PO BEDTIME [facility] Last Admin: 07/26/16 21:21 Dose: 0.4 mg Discontinued Medications Acetaminophen (Tylenol) 650 mg PO Q4H PRN PRN Reason: Fever Last Admin: 07/26/16 19:54 Dose: 650 mg Albuterol (Proventil Neb Soln) 2.5 mg NEB Q4H PRN PRN Reason: Dyspnea Last Admin: 07/20/16 16:13 Dose: 2.5 mg Bacitracin (Bacitracin Oint) 0 gm TOP TID [facility] Last Admin: 07/20/16 13:58 Dose: 1 applic Bisacodyl (Dulcolax) 10 mg PO BID [facility] Last Admin: 07/20/16 09:22 Dose: 10 mg Bisacodyl (Dulcolax) 10 mg RECTAL BID PRN PRN Reason: Constipation Last Admin: 07/19/16 17:31 Dose: 10 mg Bisacodyl (Dulcolax) 20 mg PO ONETIME ONE Stop: 07/26/16 10:01 Last Admin: 07/26/16 09:09 Dose: 20 mg Bisacodyl (Dulcolax) 10 mg RECTAL BID [facility] Last Admin: 07/26/16 21:21 Dose: 10 mg Bupivacaine HCl (Marcaine 0.5%) Confirm Administered Dose 50 ml .ROUTE .STK-MED ONE Stop: 07/22/16 06:41 Last Admin: 07/22/16 07:34 Dose: 20 ml Bupivacaine HCl/Epinephrine Bitart (Marcaine 0.5%/Epinephrine 1:200,000) Confirm Administered Dose 50 ml .ROUTE .STK-MED ONE Stop: 07/16/16 06:43 Last Admin: 07/16/16 07:28 Dose: 10 ml Buspirone HCl (Buspar) 15 mg PO DAILY [facility] Last Admin: 07/20/16 09:21 Dose: 15 mg Buspirone HCl (Buspar) 7.5 mg PO QPM [facility] Last Admin: 07/20/16 17:57 Dose: Not Given Dexamethasone (Dexamethasone) Confirm Administered Dose 4 mg .ROUTE .STK-MED ONE Stop: 07/16/16 07:27 Dexamethasone (Dexamethasone) Confirm Administered Dose 4 mg .ROUTE .STK-MED ONE Stop: 07/20/16 16:44 Diatrizoate Meglum/Diatrizoate Sod (Gastrografin 37%) 1,200 ml .XX . DIRECTED [facility] Stop: 07/20/16 14:16 Last Admin: 07/20/16 15:27 Dose: 1,200 ml Fentanyl (Sublimaze) Confirm Administered Dose 500 mcg .ROUTE .STK-MED ONE Stop: 07/16/16 07:27 Fentanyl (Sublimaze) Confirm Administered Dose 250 mcg .ROUTE .STK-MED ONE Stop: 07/16/16 09:21 Fentanyl (Duragesic) 25 mcg TRDERM Q72H [facility] Last Admin: 07/20/16 09:24 Dose: 25 mcg Fentanyl (Sublimaze) Confirm Administered Dose 250 mcg .ROUTE .STK-MED ONE Stop: 07/20/16 16:45 Fentanyl (Sublimaze) Confirm Administered Dose 250 mcg .ROUTE .STK-MED ONE Stop: 07/20/16 18:24 Fentanyl (Duragesic) 25 mcg TRDERM Q72H [facility] Last Admin: 07/20/16 22:18 Dose: Not Given Fentanyl (Duragesic) 25 mcg TRDERM Q72H [facility] Fentanyl (Sublimaze) Confirm Administered Dose 100 mcg .ROUTE .STK-MED ONE Stop: 07/22/16 07:04 Fentanyl (Duragesic) 50 mcg TRDERM Q72H [facility] Last Admin: 07/22/16 09:40 Dose: 50 mcg Glycopyrrolate () Confirm Administered Dose 1 mg .ROUTE .STK-MED ONE Stop: 07/16/16 07:27 Glycopyrrolate () Confirm Administered Dose 1 mg .ROUTE .STK-MED ONE Stop: 07/20/16 16:44 Haloperidol Lactate (Haldol) 2.5 mg IVPUSH ONETIME ONE Stop: 07/23/16 06:18 Last Admin: 07/23/16 06:26 Dose: 2.5 mg Haloperidol Lactate (Haldol) 2.5 mg IVPUSH Q1H PRN PRN Reason: PSYCHOSIS/ANXIETY Last Admin: 07/23/16 18:10 Dose: 2.5 mg Heparin Sodium (Porcine) (Heparin Lock Flush 100 Units/Ml Syringe) Confirm Administered Dose 500 units .ROUTE .STK-MED ONE Stop: 07/20/16 17:25 Last Admin: 07/20/16 17:28 Dose: 500 units Heparin Sodium (Porcine) (Heparin Sodium) Confirm Administered Dose 5,000 units .ROUTE .STK-MED ONE Stop: 07/20/16 20:54 Last Admin: 07/20/16 21:06 Dose: 5,000 units Hydromorphone HCl (Dilaudid English Teacher 15 Mg In Ns 30 Ml) 0 mg IV ASDIRECTED PRN; Protocol PRN Reason: Pain Last Admin: 07/16/16 07:37 Dose: 0.3 mg Hydromorphone HCl (Dilaudid English Teacher 15 Mg In Ns 30 Ml) 0 mg IV ASDIRECTED PRN; Protocol PRN Reason: PAIN Last Admin: 07/20/16 07:38 Dose: 15 mg Hydromorphone HCl (Dilaudid English Teacher 15 Mg In Ns 30 Ml) 0 mg IV ASDIRECTED PRN; Protocol PRN Reason: PAIN Last Admin: 07/21/16 07:19 Dose: 15 mg Hydroxyzine HCl (Vistaril) 100 mg IM Q4H PRN PRN Reason: Pain Last Admin: 07/20/16 14:41 Dose: 100 mg Hydroxyzine HCl (Vistaril) 50 mg IM ONETIME ONE Stop: 07/22/16 06:14 Last Admin: 07/22/16 06:29 Dose: 50 mg Clindamycin Phosphate 900 mg/ (Sodium Chloride) 106 mls @ 212 mls/hr IV ONETIME ONE Stop: 07/16/16 07:59 Last Admin: 07/16/16 07:48 Dose: 212 mls/hr Dextrose/Lactated Ringer's (Dextrose 5%-Lactated Ringers) 1,000 mls @ 100 mls/ hr IV ASDIRECTED [facility] Last Admin: 07/16/16 07:37 Dose: 100 mls/hr Lactated Ringer's (Ringers, Lactated) Confirm Administered Dose 1,000 mls @ as directed .ROUTE .STK-MED ONE Stop: 07/16/16 09:17 Dextrose/Lactated Ringer's (Dextrose 5%-Lactated Ringers) 1,000 mls @ 150 mls/ hr IV ASDIRECTED [facility] Last Admin: 07/18/16 04:26 Dose: 150 mls/hr Cefazolin Sodium 2 gm/ Sodium (Chloride) 50 mls @ 100 mls/hr IV Q8H [facility] Stop: 07/17/16 06:29 Last Admin: 07/17/16 05:08 Dose: 100 mls/hr Dextrose/Lactated Ringer's (Dextrose 5%-Lactated Ringers) 1,000 mls @ 100 mls/ hr IV ASDIRECTED [facility] Last Admin: 07/19/16 14:53 Dose: 100 mls/hr Acetaminophen 1,000 mg/ Premix 100 mls @ 400 mls/hr IV Q6H PRN PRN Reason: PAIN Stop: 07/20/16 10:30 Acetaminophen 1,000 mg/ Premix 100 mls @ 400 mls/hr IV NOW ONE Stop: 07/20/16 07:32 Last Admin: 07/20/16 07:31 Dose: 400 mls/hr Lactated Ringer's (Ringers, Lactated) 1,000 mls @ 1,000 mls/hr IV ASDIRECTED [facility] Stop: 07/20/16 09:31 Last Admin: 07/20/16 09:10 Dose: 1,000 mls/hr Levofloxacin/Dextrose 500 mg/ (Premix) 100 mls @ 100 mls/hr IV Q24H [facility] Last Admin: 07/20/16 09:22 Dose: 100 mls/hr Acetaminophen 1,000 mg/ Premix 100 mls @ 400 mls/hr IV Q6H [facility] Last Admin: 07/20/16 22:20 Dose: 400 mls/hr Lactated Ringer's (Ringers, Lactated) 1,000 mls @ 250 mls/hr IV ASDIRECTED [facility] Stop: 07/20/16 14:01 Last Admin: 07/20/16 11:04 Dose: 250 mls/hr Meropenem 1 gm/ Sodium (Chloride) 50 mls @ 100 mls/hr IV Q8H [facility] Last Admin: 07/20/16 11:41 Dose: 100 mls/hr Lactated Ringer's (Ringers, Lactated) 1,000 mls @ 999 mls/hr IV BOLUS ONE Stop: 07/20/16 17:19 Last Admin: 07/20/16 21:10 Dose: 999 mls/hr Lactated Ringer's (Ringers, Lactated) Confirm Administered Dose 1,000 mls @ as directed .ROUTE .STK-MED ONE Stop: 07/20/16 18:26 Lactated Ringer's (Ringers, Lactated) Confirm Administered Dose 1,000 mls @ as directed .ROUTE .STK-MED ONE Stop: 07/20/16 18:27 Dextrose/Lactated Ringer's (Dextrose 5%-Lactated Ringers) 1,000 mls @ 100 mls/ hr IV ASDIRECTED [facility] Stop: 07/23/16 09:59 Last Admin: 07/23/16 00:19 Dose: 100 mls/hr Lactated Ringer's (Ringers, Lactated) 1,000 mls @ 100 mls/hr IV ASDIRECTED [facility] Stop: 07/21/16 17:59 Last Admin: 07/21/16 07:22 Dose: 100 mls/hr Aztreonam 1 gm/ Sodium (Chloride) 50 mls @ 100 mls/hr IV Q8HR [facility] Last Admin: 07/21/16 05:06 Dose: 100 mls/hr Meropenem 500 mg/ Sodium (Chloride) 50 mls @ 100 mls/hr IV Q8H [facility] Last Admin: 07/26/16 05:17 Dose: 100 mls/hr Acetaminophen 1,000 mg/ Premix 100 mls @ 400 mls/hr IV Q6H [facility] Stop: 07/21/16 16:14 Last Admin: 07/21/16 17:12 Dose: 400 mls/hr Aztreonam/Dextrose 1 gm/ (Premix) 50 mls @ 100 mls/hr IV Q8HR [facility] Last Admin: 07/25/16 05:52 Dose: 100 mls/hr Lactated Ringer's (Ringers, Lactated) 1,000 mls @ 40 mls/hr IV ASDIRECTED RUMA Lactated Ringer's (Ringers, Lactated) 1,000 mls @ 40 mls/hr IV ASDIRECTED [facility] Last Admin: 07/23/16 03:55 Dose: 40 mls/hr Albumin Human 12.5 gm/ Premix 50 mls @ 25 mls/hr IV Q24H [facility] Stop: 07/26/16 10:59 Last Admin: 07/26/16 09:09 Dose: 25 mls/hr Albumin Human 12.5 gm/ Premix 50 mls @ 25 mls/hr IV Q24H [facility] Stop: 07/26/16 12:59 Last Admin: 07/26/16 10:44 Dose: 25 mls/hr Albumin Human 12.5 gm/ Premix 50 mls @ 25 mls/hr IV Q24H [facility] Stop: 07/26/16 14:59 Last Admin: 07/26/16 12:45 Dose: 25 mls/hr Albumin Human 12.5 gm/ Premix 50 mls @ 25 mls/hr IV Q24H [facility] Stop: 07/26/16 16:59 Last Admin: 07/26/16 15:09 Dose: 25 mls/hr Multivitamins/Minerals 10 ml/Chromium/Copper/Manganese/Seleni/Zn 1 ml/ Amino Ac/ Electrol/Dextrose/Calcium 1,011 mls @ 82 mls/hr IV .BY DURATION [facility] Last Admin: 07/23/16 10:23 Dose: 82 mls/hr Amino Ac/Electrol/Dextrose/Calcium (Clinimix E 09/27) 1,000 mls @ 82 mls/hr IV .BY DURATION [facility] Last Admin: 07/23/16 22:44 Dose: 82 mls/hr Lactated Ringer's (Ringers, Lactated) 1,000 mls @ 0 mls/hr IV ASDIRECTED [facility] PRN Reason: KVO Last Admin: 07/24/16 19:59 Dose: 25 mls/hr Acetaminophen 1,000 mg/ Premix 100 mls @ 400 mls/hr IV Q6H PRN PRN Reason: Pain Stop: 07/24/16 23:18 Last Admin: 07/24/16 20:14 Dose: 400 mls/hr Potassium Chloride 40 meq/ (Premix) 100 mls @ 25 mls/hr IV ONETIME ONE Stop: 07/24/16 12:29 Last Admin: 07/24/16 08:56 Dose: 25 mls/hr Potassium Chloride 20 meq/ (Premix) 100 mls @ 50 mls/hr IV ONETIME ONE Stop: 07/24/16 14:59 Last Admin: 07/24/16 12:31 Dose: 50 mls/hr Multivitamins/Minerals 10 ml/Chromium/Copper/Manganese/Seleni/Zn 1 ml/ Amino Ac/ Electrol/Dextrose/Calcium 1,011 mls @ 82 mls/hr IV .BY DURATION [facility] Last Admin: 07/25/16 13:40 Dose: 82 mls/hr Amino Ac/Electrol/Dextrose/Calcium (Clinimix E 15) 1,000 mls @ 82 mls/hr IV .BY DURATION [facility] Last Admin: 07/26/16 00:18 Dose: 82 mls/hr Lactated Ringer's (Ringers, Lactated) 1,000 mls @ 25 mls/hr IV ASDIRECTED [facility] PRN Reason: KVO Acetaminophen 1,000 mg/ Premix 100 mls @ 400 mls/hr IV Q6H PRN PRN Reason: Pain Stop: 07/26/16 05:10 Last Admin: 07/26/16 03:58 Dose: 400 mls/hr Vancomycin HCl 1.75 gm/ Sodium (Chloride) 250 mls @ 167 mls/hr IV ONETIME ONE Stop: 07/25/16 12:29 Last Admin: 07/25/16 11:35 Dose: 167 mls/hr Vancomycin HCl 1.5 gm/ Sodium (Chloride) 250 mls @ 167 mls/hr IV Q12H [facility] Last Admin: 07/26/16 22:58 Dose: 167 mls/hr Ketorolac Tromethamine (Toradol) 60 mg IM ONETIME ONE Stop: 07/19/16 17:04 Last Admin: 07/19/16 17:30 Dose: 60 mg Labetalol HCl (Normodyne) 5 - 10 mg IV Q2H PRN PRN Reason: BP Last Admin: 07/25/16 05:19 Dose: 10 mg Labetalol HCl (Normodyne) Confirm Administered Dose 20 mg .ROUTE .STK-MED ONE Stop: 07/25/16 05:16 Last Admin: 07/25/16 08:49 Dose: Not Given Lidocaine HCl (Xylocaine 2% Jelly) 10 ml MUCMEM ONETIME ONE Stop: 07/16/16 21:15 Last Admin: 07/16/16 21:41 Dose: 10 ml Lidocaine/Epinephrine (Xylocaine 1% With Epinephrine 1:100,000) Confirm Administered Dose 50 ml .ROUTE .STK-MED ONE Stop: 07/22/16 06:41 Last Admin: 07/22/16 07:34 Dose: 20 ml Lorazepam (Ativan) 0.5 - 1 mg IVPUSH Q4H PRN PRN Reason: Anxiety Lorazepam (Ativan) 0.5 mg IVPUSH Q2H PRN PRN Reason: Anxiety Last Admin: 07/23/16 16:53 Dose: 0.5 mg Losartan Potassium (Cozaar) 50 mg PO DAILY [facility] Last Admin: 07/20/16 09:21 Dose: 50 mg Magnesium Citrate (Citrate Of Magnesia) 296 ml PO ONETIME ONE Stop: 07/18/16 09:01 Last Admin: 07/18/16 10:55 Dose: 296 ml Magnesium Hydroxide (Milk Of Magnesia) 30 ml PO ONETIME ONE Stop: 07/19/16 08:46 Last Admin: 07/19/16 10:27 Dose: 30 ml Magnesium Hydroxide (Milk Of Magnesia) 30 ml PO ONETIME ONE Stop: 07/26/16 09:01 Last Admin: 07/26/16 09:09 Dose: 30 ml Meperidine HCl (Demerol) 100 mg IM ONETIME ONE Stop: 07/20/16 16:01 Last Admin: 07/20/16 16:05 Dose: 100 mg Meperidine HCl (Demerol) 100 mg IM ONETIME ONE Stop: 07/22/16 06:14 Last Admin: 07/22/16 06:28 Dose: 100 mg Meropenem (Merrem) Confirm Administered Dose 500 mg .ROUTE .STK-MED ONE Stop: 07/16/16 06:43 Last Admin: 07/16/16 09:25 Dose: 500 mg Meropenem (Merrem) Confirm Administered Dose 2,000 mg .ROUTE .STK-MED ONE Stop: 07/20/16 17:25 Last Admin: 07/20/16 17:25 Dose: 2,000 mg Meropenem (Merrem) Confirm Administered Dose 500 mg .ROUTE .STK-MED ONE Stop: 07/22/16 06:41 Last Admin: 07/22/16 07:34 Dose: 500 mg Midazolam HCl (Versed 1 Mg/Ml) Confirm Administered Dose 2 mg .ROUTE .STK-MED ONE Stop: 07/20/16 16:46 Midazolam HCl (Versed 1 Mg/Ml) Confirm Administered Dose 2 mg .ROUTE .STK-MED ONE Stop: 07/22/16 07:04 Morphine Sulfate (Morphine English Teacher 150 Mg In 30 Ml) 150 mg IV ASDIRECTED RUMA PRN Reason: Protocol Last Admin: 07/22/16 06:49 Dose: 150 mg Morphine Sulfate (Morphine English Teacher 150 Mg In 30 Ml) 0 mg IV ASDIRECTED PRN; Protocol PRN Reason: PAIN Last Admin: 07/26/16 03:12 Dose: 150 mg Naloxone HCl (Narcan) 0.1 mg IV ASDIRECTED PRN PRN Reason: decreased respiratory rate Naloxone HCl (Narcan) 0.1 mg IV ASDIRECTED PRN PRN Reason: decreased respiratory rate Naloxone HCl (Narcan) Confirm Administered Dose 0.4 mg .ROUTE .STK-MED ONE Stop: 07/20/16 20:01 Naloxone HCl (Narcan) 0.1 mg IV ASDIRECTED PRN PRN Reason: decreased respiratory rate Neostigmine Methylsulfate (Neostigmine) Confirm Administered Dose 5 mg .ROUTE .STK-MED ONE Stop: 07/16/16 07:27 Neostigmine Methylsulfate (Neostigmine) Confirm Administered Dose 5 mg .ROUTE .STK-MED ONE Stop: 07/20/16 16:44 Nitroglycerin (Nitrostat) 0.4 mg SL Q5M PRN PRN Reason: CHEST PAIN Fentanyl Patch Check 0 each TOP DAILY [facility] Last Admin: 07/20/16 09:27 Dose: 1 each Fentanyl Patch Check 0 each TOP DAILY@2200 [facility] Last Admin: 07/20/16 22:19 Dose: Not Given Verify Fentanyl (Patch) 0 each TOP BID [facility] Last Admin: 07/24/16 23:12 Dose: Not Given Ondansetron HCl (Zofran) Confirm Administered Dose 4 mg .ROUTE .STK-MED ONE Stop: 07/16/16 07:27 Ondansetron HCl (Zofran) 4 mg IVPUSH Q4H PRN PRN Reason: NAUSEA Last Admin: 07/17/16 10:56 Dose: 4 mg Ondansetron HCl (Zofran) Confirm Administered Dose 4 mg .ROUTE .STK-MED ONE Stop: 07/20/16 16:44 Oxycodone/Acetaminophen (Percocet 325-5 Mg) 1 - 2 tab PO Q4H PRN PRN Reason: PAIN Last Admin: 07/20/16 03:34 Dose: 2 tab Pantoprazole Sodium (Protonix Iv) 40 mg IV Q24H [facility] Last Admin: 07/25/16 20:56 Dose: 40 mg Polyethylene Glycol (Miralax) 119 gm PO ONETIME ONE Stop: 07/20/16 10:01 Last Admin: 07/20/16 09:35 Dose: 119 gm Propofol (Diprivan 20 Ml) Confirm Administered Dose 200 mg .ROUTE .STK-MED ONE Stop: 07/16/16 07:27 Propofol (Diprivan 20 Ml) Confirm Administered Dose 200 mg .ROUTE .STK-MED ONE Stop: 07/20/16 16:44 Propofol (Diprivan 20 Ml) Confirm Administered Dose 200 mg .ROUTE .STK-MED ONE Stop: 07/22/16 07:04 Rocuronium [place] (Zemuron) Confirm Administered Dose 50 mg .ROUTE .STK-MED ONE Stop: 07/16/16 07:27 Rocuronium [place] (Zemuron) Confirm Administered Dose 50 mg .ROUTE .STK-MED ONE Stop: 07/20/16 16:44 Rocuronium [place] (Zemuron) Confirm Administered Dose 50 mg .ROUTE .STK-MED ONE Stop: 07/20/16 18:24 Sodium Chloride (Saline Flush) 10 ml IV ASDIRECTED PRN PRN Reason: LINE FLUSH Succinylcholine Chloride (Succinylcholine In Ns Pf) Confirm Administered Dose 200 mg .ROUTE .STK-MED ONE Stop: 07/16/16 07:27 Succinylcholine Chloride (Succinylcholine In Ns Pf) Confirm Administered Dose 200 mg .ROUTE .STK-MED ONE Stop: 07/20/16 16:44 Tamsulosin HCl (Flomax) 0.4 mg PO BEDTIME [facility] Last Admin: 07/19/16 21:18 Dose: 0.4 mg Tamsulosin HCl (Flomax) 0.4 mg PO ONETIME ONE Stop: 07/17/16 09:01 Last Admin: 07/17/16 10:18 Dose: 0.4 mg Tamsulosin HCl (Flomax) 0.4 mg PO ONETIME ONE Stop: 07/24/16 08:31 Last Admin: 07/24/16 09:06 Dose: 0.4 mg Vancomycin HCl (Vancomycin) 1 gm IV .PHARMACY TO DOSE [facility] Stop: 07/25/16 12:00 - Exam Quality Assessment: No: supplemental oxygen General: alert, oriented, cooperative, mild distress Neck: supple Lungs: Normal respiratory effort Cardiovascular: Regular Rate, Regular Rhythm Abdomen: soft, no distension Extremities: no edema, no cyanosis Skin: warm, dry Wound/Incisions: drainage (mild slightly pink to serous sanguinous drainage from surgical incision just above the umbilicus), erythema (mild to moderate erythema surrounding the entire staple line but within the marked area) Psy/Mental Status: alert, normal affect Consult PN Assessment/Plan Procedures: Procedures ASSAY OF TROPONIN QUANT (08/25/13) CARDIOVASCULAR STRESS TEST (11/07/14) CHEST X-RAY 1 VIEW FRONTAL (08/25/13) COMPLETE CBC W/AUTO DIFF WBC (08/25/13) COMPREHEN METABOLIC PANEL (08/25/13) ELECTROCARDIOGRAM REPORT (08/25/13) ELECTROCARDIOGRAM TRACING (08/25/13) EMERGENCY DEPT VISIT (08/25/13) EMERGENCY DEPT VISIT (08/25/13) HT MUSCLE IMAGE SPECT MULT (11/07/14) INITIAL OBSERVATION CARE (08/25/13) METABOLIC PANEL TOTAL CA (08/25/13) OBSERVATION CARE DISCHARGE (08/25/13) ROUTINE VENIPUNCTURE (08/25/13) THER/PROPH/DIAG INJ IV PUSH (08/25/13) TX/PRO/DX INJ NEW DRUG ADDON (08/25/13) Problem List Initiated/Reviewed/Updated: Yes My Orders last 24 hours: My Active Orders 07/26/16 21:00 Pantoprazole [Protonix] 40 mg PO BEDTIME 07/27/16 16:00 Lidocaine 2% [Xylocaine 2% Viscous] 30 ml Alum Hydrox/Mag Hydrox/Simeth [Mag-Al Plus] 30 ml diphenhydrAMINE [Benadryl] 75 mg PO QID 07/27/16 Dinner Full Liquid Diet [DIET] 07/28/16 05:00 BASIC METABOLIC PANEL,BMP [CHEM] Timed CBC W/O DIFF,HEMOGRAM [HEME] Timed (1) Plan: ASSESSMENT AND RECOMMENDATIONS Probable wound infection - purulent drainage from lower part of her abdominal wound and cultures growing yeast with identification pending. looks a little better today after starting fluconazole. White blood cell count is a little better. Pain seems to be improving but is still suboptimally controlled. -continue fluconazole -continue oral oxycodone with as needed hydromorphone -Followup blood and wound cultures SEPSIS SECONDARY TO INTESTINAL PERFORATION - status post delayed primary closure done 07/24, hemodynamically stable, mild temperature elevation during the night. Cultures from surgery are growing enterococcus and Escherichia coli. clinically seems to be getting better from the standpoint. -Postoperative care per surgical team -followup cultures -continue ceftriaxone -continue vancomycin for enterococcal coverage, because of his penicillin allergy -nutritional support with TPN ACUTE KIDNEY INJURY - likely secondary to hypotension related to sepsis, renal function has been stable for several days with good urine output. -Continue to monitor urine output and renal function closely STATUS POST ABDOMINAL WALL HERNIA REPAIR - bowels started moving yesterday. -Advance to full liquids CORONARY ARTERY DISEASE-asymptomatic Caden Momin M.D.
[2016-07-27] MEDS: Lidocaine 2% 30 ML, Alum Hydrox/Mag Hydrox/Simeth 30 ML, diphenhydrAMINE 75 MG PO SCH ×6 (16:45→22:00)
[2016-07-27] MEDS ORDERED: Dimethicone 20%/Zinc Oxide 25% 56 GM Spray Bottle TOP PRN (18:32)
[2016-07-27] MEDS ORDERED: Bisacodyl 10 MG Supp RECTAL PRN (20:24)
[2016-07-27] MEDS ORDERED: Magnesium Hydroxide 400 MG/5 ML Susp 30 ML Cup PO PRN (20:24)
[2016-07-27] MEDS: Acetaminophen 325 MG Tab PO PRN (20:33)
[2016-07-27] MEDS: diphenhydrAMINE 25 MG Cap PO PRN (20:34)
[2016-07-27] MEDS: Pantoprazole 40 MG Tab.CR PO SCH (20:35)
[2016-07-27] MEDS: Tamsulosin 0.4 MG Cap.ER PO SCH (20:35)
[2016-07-28] MEDS: 1: AA 5%/Calcium/D15W/Lytes 1,000 ML with MVI, Adult with Vitamin K 10 ML, Chromium/Copp IV SCH ×6 (03:14→15:39)
[2016-07-28] MEDS: oxyCODONE 5 MG Tab PO PRN ×3 (03:17→12:27)
[2016-07-28] MEDS: Lidocaine 2% 30 ML, Alum Hydrox/Mag Hydrox/Simeth 30 ML, diphenhydrAMINE 75 MG PO SCH ×12 (06:00→22:00)
[2016-07-28] MEDS: Albuterol/Ipratropium 3.0-0.5 MG/3 ML Neb Soln INH SCH ×4 (07:19→20:52)
[2016-07-28] MEDS: Docusate Sodium 100 MG Cap PO SCH ×2 (08:26→20:52)
[2016-07-28] MEDS: Losartan 50 MG Tab PO SCH (08:26)
[2016-07-28] MEDS: busPIRone 5 MG Tab PO SCH ×2 (08:27→20:52)
[2016-07-28] MEDS: Fluconazole/Normal Saline 200 MG in Premix Bag 1 BAG IV SCH (09:51)
--- NOTE | 2016-07-28 09:59 | PN ---
DATE OF SERVICE: 07/27/2016 SUBJECTIVE: Srinivas has had 2 bowel movements. His temp max was 100.9. G tube continues to drain a bilious green. He did show some confusion. According to nursing staff, there is no relationship to his medications. OBJECTIVE: GENERAL: Srinivas Lofton is a 66-year-old male. VITAL SIGNS: Stable. HEENT: Negative. NECK: Supple. HEART: Regular rate and rhythm. LUNGS: Clear. ABDOMEN: Dressings dry and intact. ALLIE drains have put out 5, 3, 2, 10, 2, and 2 mL of a light yellow serous drainage. Incisions look good. He still has some drainage from the 2 areas, as umbilicus and the top part of his incision, clear serous drainage. Abdominal binder has been on. EXTREMITIES: Without peripheral edema. ASSESSMENT: 1. Diagnostic laparoscopy with lysis of adhesion, repair of recurrent incarcerated umbilical hernia with mesh, removal of previous mesh, placement of Vicryl mesh to displace small bowel and omentum from newly placed mesh to limit recurrent adhesive formation from the pelvic and abdominal wall and associated areas of mesh placement for recurrent incarcerated hernia, extensive adhesions between a previously placed mesh and omentum on the bowel on 07/16/2016. 2. Exploratory laparotomy with distal bowel resection, total abdominal colectomy, removal of intraperitoneal mesh, and insertion of central vein catheter 07/20/2016. 3. Delayed primary closure of open incision on 07/22/2016. PLAN: 1. Discontinue Dulcolax suppository. 2. Continue TPN same rate and content. 3. Clamp NG 24 hours and unclamp p.r.n. 4. Rest of orders to be written per Caden Momin MD. Lidia Rao PA-C /[id number]
--- NOTE | 2016-07-28 10:02 | PN ---
DATE OF SERVICE: 07/28/2016 SUBJECTIVE: Srinivas had quite a bit in the way of confusion during the night. He tolerated a full liquid diet well. He tolerated the G tube clamp well. He was started on a full liquid diet. Temp max was 100.5. He is very concerned about having a bowel movement. They did start some milk of Mag last evening before he got real confused. OBJECTIVE: GENERAL: Srinivas is a 66-year-old male. He is reporting increased amount of pain. He states that the pain medications do help. He is a little bit confused. VITAL SIGNS: Stable. HEENT: Negative. NECK: Supple. HEART: Regular rate and rhythm. LUNGS: Clear. ABDOMEN: There is some drainage on the mid incision, it is a clear yellow. Otherwise, his dressing is dry and intact. Abdominal binder is on and ALLIE drains as above. EXTREMITIES: Without peripheral edema. ASSESSMENT: 1. Diagnostic laparoscopy with lysis of adhesion, repair of recurrent incarcerated umbilical hernia with mesh, removal of previous mesh, placement of Vicryl mesh to displace small bowel and omentum from newly placed mesh to limit recurrent adhesive formation from the pelvic and abdominal wall and associated areas of mesh placement for recurrent incarcerated hernia, extensive adhesions between a previously placed mesh and omentum on the bowel on 07/16/2016. 2. Exploratory laparotomy with distal bowel resection, total abdominal colectomy, removal of intraperitoneal mesh, and insertion of central vein catheter 07/20/2016. 3. Delayed primary closure of open incision on 07/22/2016. PLAN: 1. Flush gastrostomy tube with 100 mL water t.i.d. 2. Continue full liquid diet. 3. Continue bowel stimulation which is p.r.n. if needed. 4. We will evaluate p.r.n. or in a.m. Lidia Rao PA-C /[id number]
--- NOTE | 2016-07-28 11:09 | PCM.CONSN ---
- General Info Date of Service: 07/28/16 Functional Status: Reports: tolerating diet, ambulating. Denies: pain controlled - Review of Systems General: Reports: Weakness Gastrointestinal: Reports: Abdominal pain Systems Review Comment:: no acute events overnight. Patient still reporting moderately severe incisional pain, mostly above the umbilicus. Low-grade temperature elevation but no true fever. Drainage from the area just above the umbilicus seems to be decreasing. Only a couple of his ALLIE drains have any sort of output. He does not feel short of breath and has not been coughing. No lower extremity edema. Tolerating full liquids okay but not much of an appetite. - Patient Data Vitals - most recent: Last Vital Signs Temp 38.1 C 07/28/16 10:30 Pulse 88 07/28/16 10:59 Resp 22 H 07/28/16 08:37 BP 158/83 H 07/28/16 08:37 Pulse Ox 95 07/28/16 08:37 Weight - most recent: 108.998 kg I&O - last 24 hours: Intake & Output 07/27/16 07/28/16 07/28/16 22:59 06:59 14:59 Intake Total 1234 1470 100 Output Total 475 1255 54 Balance 759 215 46 Lab Results last 24 hrs: Laboratory Results - last 24 hr 07/28/16 07/28/16 Range/Units 04:20 05:00 WBC 18.0 H (4.5-11.0) K/uL RBC 4.33 (4.30-5.90) M/uL Hgb 12.6 (12.0-15.0) g/dL Hct 39.2 L (40.0-54.0) % MCV 91 (80-98) fL MCH 29 (27-31) pg MCHC 32 (32-36) % Plt Count 368 (150-400) K/uL Sodium 149 H (140-148) mmol/L Potassium 3.9 (3.6-5.2) mmol/L Chloride 113 H (100-108) mmol/L Carbon Dioxide 26 (21-32) mmol/L Anion Gap 13.9 (5.0-14.0) mmol/L BUN 35 H (7-18) mg/dL Creatinine 1.4 H (0.8-1.3) mg/dL Est Cr Clr Drug Dosing 55.17 mL/min Estimated GFR (MDRD) 51 L (>60) Glucose 113 H (74-106) mg/dL Calcium 7.8 L (8.5-10.1) mg/dL Med Orders - Current: Current Medications Acetaminophen (Tylenol) 650 mg PO Q4H PRN PRN Reason: Pain (mild 1-3) Last Admin: 07/27/16 20:33 Dose: 650 mg Albuterol/Ipratropium (Duoneb 3.0-0.5 Mg/3 Ml) 3 ml INH QIDRT [facility] Last Admin: 07/28/16 10:58 Dose: 3 ml Albuterol/Ipratropium (Duoneb 3.0-0.5 Mg/3 Ml) 3 ml INH ASDIRECTED PRN PRN Reason: * Last Admin: 07/23/16 23:50 Dose: 3 ml Bisacodyl (Dulcolax) 10 mg RECTAL DAILY PRN PRN Reason: Constipation Buspirone HCl (Buspar) 15 mg PO DAILY [facility] Last Admin: 07/28/16 08:27 Dose: 15 mg Buspirone HCl (Buspar) 7.5 mg PO BEDTIME [facility] Last Admin: 07/27/16 20:34 Dose: 7.5 mg Lidocaine HCl 30 ml/ Al Hydroxide/Mg Hydroxide 30 ml/Diphenhydramine HCl 75 mg 0 ml PO QID [facility] Last Admin: 07/28/16 09:46 Dose: 15 ml Dimethicone/Zinc Oxide (Rash Relief-Zinc Oxide [place]) 0 gm TOP ASDIRECTED PRN PRN Reason: Rash Diphenhydramine HCl (Benadryl) 25 mg PO BEDTIME PRN PRN Reason: Sleep Last Admin: 07/27/16 20:34 Dose: 25 mg Docusate Sodium (Colace) 100 mg PO BID [facility] Last Admin: 07/28/16 08:26 Dose: 100 mg Heparin Sodium (Porcine) (Heparin Lock Flush 100 Units/Ml Syringe) 500 units FLUSH ASDIRECTED PRN PRN Reason: IV Use Last Admin: 07/26/16 04:30 Dose: 500 units Hydromorphone HCl (Dilaudid) 0.5 - 1 mg IVPUSH Q2H PRN PRN Reason: Pain (severe 7-10) Last Admin: 07/27/16 00:30 Dose: 1 mg Hydroxyzine HCl (Vistaril) 100 mg IM Q4H PRN PRN Reason: PAIN Last Admin: 07/26/16 12:16 Dose: 100 mg Fluconazole/Sodium Chloride (200 mg/ Premix) 100 mls @ 100 mls/hr IV Q24H [facility] Last Admin: 07/28/16 09:51 Dose: 100 mls/hr Ceftriaxone Sodium 2 gm/ (Sodium Chloride) 50 mls @ 100 mls/hr IV Q24H [facility] Last Admin: 07/27/16 13:22 Dose: 100 mls/hr Multivitamins/Minerals 10 ml/Chromium/Copper/Manganese/Seleni/Zn 1 ml/ Amino Ac/ Electrol/Dextrose/Calcium 1,011 mls @ 82 mls/hr IV .BY DURATION [facility] Last Admin: 07/27/16 14:28 Dose: 82 mls/hr Amino Ac/Electrol/Dextrose/Calcium (Clinimix E /15) 1,000 mls @ 82 mls/hr IV .BY DURATION [facility] Last Admin: 07/28/16 03:14 Dose: 82 mls/hr Vancomycin HCl 1.7 gm/ Sodium (Chloride) 250 mls @ 167 mls/hr IV Q12H [facility] Last Admin: 07/27/16 23:43 Dose: 167 mls/hr Labetalol HCl (Normodyne) 0 mg IV Q2H PRN PRN Reason: BP Last Admin: 07/26/16 11:21 Dose: 10 mg Lorazepam (Ativan) 0.5 mg PO Q4H PRN PRN Reason: Anxiety Last Admin: 07/27/16 21:55 Dose: 0.5 mg Losartan Potassium (Cozaar) 50 mg PO DAILY [facility] Last Admin: 07/28/16 08:26 Dose: 50 mg Magnesium Hydroxide (Milk Of Magnesia) 30 ml PO Q4H PRN PRN Reason: Constipation Naloxone HCl (Narcan) 0.1 mg IV ASDIRECTED PRN PRN Reason: decreased respiratory rate Nitroglycerin (Nitrostat) 0.4 mg SL Q5M PRN PRN Reason: CHEST PAIN Ondansetron HCl (Zofran) 4 mg IVPUSH Q4H PRN PRN Reason: NAUSEA Oxycodone HCl (Oxycodone) 5 - 10 mg PO Q4H PRN PRN Reason: Pain Last Admin: 07/28/16 08:22 Dose: 10 mg Pantoprazole Sodium (Protonix) 40 mg PO BEDTIME [facility] Last Admin: 07/27/16 20:35 Dose: 40 mg Tamsulosin HCl (Flomax) 0.4 mg PO BEDTIME [facility] Last Admin: 07/27/16 20:35 Dose: 0.4 mg Discontinued Medications Acetaminophen (Tylenol) 650 mg PO Q4H PRN PRN Reason: Fever Last Admin: 07/26/16 19:54 Dose: 650 mg Albuterol (Proventil Neb Soln) 2.5 mg NEB Q4H PRN PRN Reason: Dyspnea Last Admin: 07/20/16 16:13 Dose: 2.5 mg Bacitracin (Bacitracin Oint) 0 gm TOP TID [facility] Last Admin: 07/20/16 13:58 Dose: 1 applic Bisacodyl (Dulcolax) 10 mg PO BID [facility] Last Admin: 07/20/16 09:22 Dose: 10 mg Bisacodyl (Dulcolax) 10 mg RECTAL BID PRN PRN Reason: Constipation Last Admin: 07/19/16 17:31 Dose: 10 mg Bisacodyl (Dulcolax) 20 mg PO ONETIME ONE Stop: 07/26/16 10:01 Last Admin: 07/26/16 09:09 Dose: 20 mg Bisacodyl (Dulcolax) 10 mg RECTAL BID [facility] Last Admin: 07/26/16 21:21 Dose: 10 mg Bupivacaine HCl (Marcaine 0.5%) Confirm Administered Dose 50 ml .ROUTE .STK-MED ONE Stop: 07/22/16 06:41 Last Admin: 07/22/16 07:34 Dose: 20 ml Bupivacaine HCl/Epinephrine Bitart (Marcaine 0.5%/Epinephrine 1:200,000) Confirm Administered Dose 50 ml .ROUTE .STK-MED ONE Stop: 07/16/16 06:43 Last Admin: 07/16/16 07:28 Dose: 10 ml Buspirone HCl (Buspar) 15 mg PO DAILY [facility] Last Admin: 07/20/16 09:21 Dose: 15 mg Buspirone HCl (Buspar) 7.5 mg PO QPM [facility] Last Admin: 07/20/16 17:57 Dose: Not Given Dexamethasone (Dexamethasone) Confirm Administered Dose 4 mg .ROUTE .STK-MED ONE Stop: 07/16/16 07:27 Dexamethasone (Dexamethasone) Confirm Administered Dose 4 mg .ROUTE .STK-MED ONE Stop: 07/20/16 16:44 Diatrizoate Meglum/Diatrizoate Sod (Gastrografin 37%) 1,200 ml .XX . DIRECTED [facility] Stop: 07/20/16 14:16 Last Admin: 07/20/16 15:27 Dose: 1,200 ml Fentanyl (Sublimaze) Confirm Administered Dose 500 mcg .ROUTE .STK-MED ONE Stop: 07/16/16 07:27 Fentanyl (Sublimaze) Confirm Administered Dose 250 mcg .ROUTE .STK-MED ONE Stop: 07/16/16 09:21 Fentanyl (Duragesic) 25 mcg TRDERM Q72H [facility] Last Admin: 07/20/16 09:24 Dose: 25 mcg Fentanyl (Sublimaze) Confirm Administered Dose 250 mcg .ROUTE .STK-MED ONE Stop: 07/20/16 16:45 Fentanyl (Sublimaze) Confirm Administered Dose 250 mcg .ROUTE .STK-MED ONE Stop: 07/20/16 18:24 Fentanyl (Duragesic) 25 mcg TRDERM Q72H [facility] Last Admin: 07/20/16 22:18 Dose: Not Given Fentanyl (Duragesic) 25 mcg TRDERM Q72H [facility] Fentanyl (Sublimaze) Confirm Administered Dose 100 mcg .ROUTE .STK-MED ONE Stop: 07/22/16 07:04 Fentanyl (Duragesic) 50 mcg TRDERM Q72H [facility] Last Admin: 07/22/16 09:40 Dose: 50 mcg Furosemide (Lasix) 20 mg IVPUSH Q8H [facility] Last Admin: 07/24/16 15:59 Dose: Not Given Glycopyrrolate () Confirm Administered Dose 1 mg .ROUTE .STK-MED ONE Stop: 07/16/16 07:27 Glycopyrrolate () Confirm Administered Dose 1 mg .ROUTE .STK-MED ONE Stop: 07/20/16 16:44 Haloperidol Lactate (Haldol) 2.5 mg IVPUSH ONETIME ONE Stop: 07/23/16 06:18 Last Admin: 07/23/16 06:26 Dose: 2.5 mg Haloperidol Lactate (Haldol) 2.5 mg IVPUSH Q1H PRN PRN Reason: PSYCHOSIS/ANXIETY Last Admin: 07/23/16 18:10 Dose: 2.5 mg Heparin Sodium (Porcine) (Heparin Lock Flush 100 Units/Ml Syringe) Confirm Administered Dose 500 units .ROUTE .STK-MED ONE Stop: 07/20/16 17:25 Last Admin: 07/20/16 17:28 Dose: 500 units Heparin Sodium (Porcine) (Heparin Sodium) Confirm Administered Dose 5,000 units .ROUTE .STK-MED ONE Stop: 07/20/16 20:54 Last Admin: 07/20/16 21:06 Dose: 5,000 units Hydromorphone HCl (Dilaudid Sugar Sampler 15 Mg In Ns 30 Ml) 0 mg IV ASDIRECTED PRN; Protocol PRN Reason: Pain Last Admin: 07/16/16 07:37 Dose: 0.3 mg Hydromorphone HCl (Dilaudid Sugar Sampler 15 Mg In Ns 30 Ml) 0 mg IV ASDIRECTED PRN; Protocol PRN Reason: PAIN Last Admin: 07/20/16 07:38 Dose: 15 mg Hydromorphone HCl (Dilaudid Sugar Sampler 15 Mg In Ns 30 Ml) 0 mg IV ASDIRECTED PRN; Protocol PRN Reason: PAIN Last Admin: 07/21/16 07:19 Dose: 15 mg Hydroxyzine HCl (Vistaril) 100 mg IM Q4H PRN PRN Reason: Pain Last Admin: 07/20/16 14:41 Dose: 100 mg Hydroxyzine HCl (Vistaril) 50 mg IM ONETIME ONE Stop: 07/22/16 06:14 Last Admin: 07/22/16 06:29 Dose: 50 mg Clindamycin Phosphate 900 mg/ (Sodium Chloride) 106 mls @ 212 mls/hr IV ONETIME ONE Stop: 07/16/16 07:59 Last Admin: 07/16/16 07:48 Dose: 212 mls/hr Dextrose/Lactated Ringer's (Dextrose 5%-Lactated Ringers) 1,000 mls @ 100 mls/ hr IV ASDIRECTED RUMA Last Admin: 07/16/16 07:37 Dose: 100 mls/hr Lactated Ringer's (Ringers, Lactated) Confirm Administered Dose 1,000 mls @ as directed .ROUTE .STK-MED ONE Stop: 07/16/16 09:17 Dextrose/Lactated Ringer's (Dextrose 5%-Lactated Ringers) 1,000 mls @ 150 mls/ hr IV ASDIRECTED [facility] Last Admin: 07/18/16 04:26 Dose: 150 mls/hr Cefazolin Sodium 2 gm/ Sodium (Chloride) 50 mls @ 100 mls/hr IV Q8H [facility] Stop: 07/17/16 06:29 Last Admin: 07/17/16 05:08 Dose: 100 mls/hr Dextrose/Lactated Ringer's (Dextrose 5%-Lactated Ringers) 1,000 mls @ 100 mls/ hr IV ASDIRECTED [facility] Last Admin: 07/19/16 14:53 Dose: 100 mls/hr Acetaminophen 1,000 mg/ Premix 100 mls @ 400 mls/hr IV Q6H PRN PRN Reason: PAIN Stop: 07/20/16 10:30 Acetaminophen 1,000 mg/ Premix 100 mls @ 400 mls/hr IV NOW ONE Stop: 07/20/16 07:32 Last Admin: 07/20/16 07:31 Dose: 400 mls/hr Lactated Ringer's (Ringers, Lactated) 1,000 mls @ 1,000 mls/hr IV ASDIRECTED [facility] Stop: 07/20/16 09:31 Last Admin: 07/20/16 09:10 Dose: 1,000 mls/hr Levofloxacin/Dextrose 500 mg/ (Premix) 100 mls @ 100 mls/hr IV Q24H [facility] Last Admin: 07/20/16 09:22 Dose: 100 mls/hr Acetaminophen 1,000 mg/ Premix 100 mls @ 400 mls/hr IV Q6H [facility] Last Admin: 07/20/16 22:20 Dose: 400 mls/hr Lactated Ringer's (Ringers, Lactated) 1,000 mls @ 250 mls/hr IV ASDIRECTED [facility] Stop: 07/20/16 14:01 Last Admin: 07/20/16 11:04 Dose: 250 mls/hr Meropenem 1 gm/ Sodium (Chloride) 50 mls @ 100 mls/hr IV Q8H [facility] Last Admin: 07/20/16 11:41 Dose: 100 mls/hr Lactated Ringer's (Ringers, Lactated) 1,000 mls @ 999 mls/hr IV BOLUS ONE Stop: 07/20/16 17:19 Last Admin: 07/20/16 21:10 Dose: 999 mls/hr Lactated Ringer's (Ringers, Lactated) Confirm Administered Dose 1,000 mls @ as directed .ROUTE .STK-MED ONE Stop: 07/20/16 18:26 Lactated Ringer's (Ringers, Lactated) Confirm Administered Dose 1,000 mls @ as directed .ROUTE .STK-MED ONE Stop: 07/20/16 18:27 Dextrose/Lactated Ringer's (Dextrose 5%-Lactated Ringers) 1,000 mls @ 100 mls/ hr IV ASDIRECTED [facility] Stop: 07/23/16 09:59 Last Admin: 07/23/16 00:19 Dose: 100 mls/hr Lactated Ringer's (Ringers, Lactated) 1,000 mls @ 100 mls/hr IV ASDIRECTED [facility] Stop: 07/21/16 17:59 Last Admin: 07/21/16 07:22 Dose: 100 mls/hr Aztreonam 1 gm/ Sodium (Chloride) 50 mls @ 100 mls/hr IV Q8HR [facility] Last Admin: 07/21/16 05:06 Dose: 100 mls/hr Meropenem 500 mg/ Sodium (Chloride) 50 mls @ 100 mls/hr IV Q8H [facility] Last Admin: 07/26/16 05:17 Dose: 100 mls/hr Acetaminophen 1,000 mg/ Premix 100 mls @ 400 mls/hr IV Q6H [facility] Stop: 07/21/16 16:14 Last Admin: 07/21/16 17:12 Dose: 400 mls/hr Aztreonam/Dextrose 1 gm/ (Premix) 50 mls @ 100 mls/hr IV Q8HR [facility] Last Admin: 07/25/16 05:52 Dose: 100 mls/hr Lactated Ringer's (Ringers, Lactated) 1,000 mls @ 40 mls/hr IV ASDIRECTED [facility] Lactated Ringer's (Ringers, Lactated) 1,000 mls @ 40 mls/hr IV ASDIRECTED [facility] Last Admin: 07/23/16 03:55 Dose: 40 mls/hr Albumin Human 12.5 gm/ Premix 50 mls @ 25 mls/hr IV Q24H [facility] Stop: 07/26/16 10:59 Last Admin: 07/26/16 09:09 Dose: 25 mls/hr Albumin Human 12.5 gm/ Premix 50 mls @ 25 mls/hr IV Q24H [facility] Stop: 07/26/16 12:59 Last Admin: 07/26/16 10:44 Dose: 25 mls/hr Albumin Human 12.5 gm/ Premix 50 mls @ 25 mls/hr IV Q24H [facility] Stop: 07/26/16 14:59 Last Admin: 07/26/16 12:45 Dose: 25 mls/hr Albumin Human 12.5 gm/ Premix 50 mls @ 25 mls/hr IV Q24H [facility] Stop: 07/26/16 16:59 Last Admin: 07/26/16 15:09 Dose: 25 mls/hr Multivitamins/Minerals 10 ml/Chromium/Copper/Manganese/Seleni/Zn 1 ml/ Amino Ac/ Electrol/Dextrose/Calcium 1,011 mls @ 82 mls/hr IV .BY DURATION [facility] Last Admin: 07/23/16 10:23 Dose: 82 mls/hr Amino Ac/Electrol/Dextrose/Calcium (Clinimix E 09/27) 1,000 mls @ 82 mls/hr IV .BY DURATION [facility] Last Admin: 07/23/16 22:44 Dose: 82 mls/hr Lactated Ringer's (Ringers, Lactated) 1,000 mls @ 0 mls/hr IV ASDIRECTED [facility] PRN Reason: KVO Last Admin: 07/24/16 19:59 Dose: 25 mls/hr Acetaminophen 1,000 mg/ Premix 100 mls @ 400 mls/hr IV Q6H PRN PRN Reason: Pain Stop: 07/24/16 23:18 Last Admin: 07/24/16 20:14 Dose: 400 mls/hr Potassium Chloride 40 meq/ (Premix) 100 mls @ 25 mls/hr IV ONETIME ONE Stop: 07/24/16 12:29 Last Admin: 07/24/16 08:56 Dose: 25 mls/hr Potassium Chloride 20 meq/ (Premix) 100 mls @ 50 mls/hr IV ONETIME ONE Stop: 07/24/16 14:59 Last Admin: 07/24/16 12:31 Dose: 50 mls/hr Multivitamins/Minerals 10 ml/Chromium/Copper/Manganese/Seleni/Zn 1 ml/ Amino Ac/ Electrol/Dextrose/Calcium 1,011 mls @ 82 mls/hr IV .BY DURATION [facility] Last Admin: 07/25/16 13:40 Dose: 82 mls/hr Amino Ac/Electrol/Dextrose/Calcium (Clinimix E /15) 1,000 mls @ 82 mls/hr IV .BY DURATION [facility] Last Admin: 07/26/16 00:18 Dose: 82 mls/hr Lactated Ringer's (Ringers, Lactated) 1,000 mls @ 25 mls/hr IV ASDIRECTED [facility] PRN Reason: KVO Acetaminophen 1,000 mg/ Premix 100 mls @ 400 mls/hr IV Q6H PRN PRN Reason: Pain Stop: 07/26/16 05:10 Last Admin: 07/26/16 03:58 Dose: 400 mls/hr Vancomycin HCl 1.75 gm/ Sodium (Chloride) 250 mls @ 167 mls/hr IV ONETIME ONE Stop: 07/25/16 12:29 Last Admin: 07/25/16 11:35 Dose: 167 mls/hr Vancomycin HCl 1.5 gm/ Sodium (Chloride) 250 mls @ 167 mls/hr IV Q12H [facility] Last Admin: 07/26/16 22:58 Dose: 167 mls/hr Acetaminophen 1,000 mg/ Premix 100 mls @ 400 mls/hr IV Q6H PRN PRN Reason: Pain Stop: 07/27/16 23:45 Last Admin: 07/27/16 15:33 Dose: 400 mls/hr Ketorolac Tromethamine (Toradol) 60 mg IM ONETIME ONE Stop: 07/19/16 17:04 Last Admin: 07/19/16 17:30 Dose: 60 mg Labetalol HCl (Normodyne) 5 - 10 mg IV Q2H PRN PRN Reason: BP Last Admin: 07/25/16 05:19 Dose: 10 mg Labetalol HCl (Normodyne) Confirm Administered Dose 20 mg .ROUTE .STK-MED ONE Stop: 07/25/16 05:16 Last Admin: 07/25/16 08:49 Dose: Not Given Lidocaine HCl (Xylocaine 2% Jelly) 10 ml MUCMEM ONETIME ONE Stop: 07/16/16 21:15 Last Admin: 07/16/16 21:41 Dose: 10 ml Lidocaine/Epinephrine (Xylocaine 1% With Epinephrine 1:100,000) Confirm Administered Dose 50 ml .ROUTE .STK-MED ONE Stop: 07/22/16 06:41 Last Admin: 07/22/16 07:34 Dose: 20 ml Lorazepam (Ativan) 0.5 - 1 mg IVPUSH Q4H PRN PRN Reason: Anxiety Lorazepam (Ativan) 0.5 mg IVPUSH Q2H PRN PRN Reason: Anxiety Last Admin: 07/23/16 16:53 Dose: 0.5 mg Losartan Potassium (Cozaar) 50 mg PO DAILY [facility] Last Admin: 07/20/16 09:21 Dose: 50 mg Magnesium Citrate (Citrate Of Magnesia) 296 ml PO ONETIME ONE Stop: 07/18/16 09:01 Last Admin: 07/18/16 10:55 Dose: 296 ml Magnesium Hydroxide (Milk Of Magnesia) 30 ml PO ONETIME ONE Stop: 07/19/16 08:46 Last Admin: 07/19/16 10:27 Dose: 30 ml Magnesium Hydroxide (Milk Of Magnesia) 30 ml PO ONETIME ONE Stop: 07/26/16 09:01 Last Admin: 07/26/16 09:09 Dose: 30 ml Meperidine HCl (Demerol) 100 mg IM ONETIME ONE Stop: 07/20/16 16:01 Last Admin: 07/20/16 16:05 Dose: 100 mg Meperidine HCl (Demerol) 100 mg IM ONETIME ONE Stop: 07/22/16 06:14 Last Admin: 07/22/16 06:28 Dose: 100 mg Meropenem (Merrem) Confirm Administered Dose 500 mg .ROUTE .STK-MED ONE Stop: 07/16/16 06:43 Last Admin: 07/16/16 09:25 Dose: 500 mg Meropenem (Merrem) Confirm Administered Dose 2,000 mg .ROUTE .STK-MED ONE Stop: 07/20/16 17:25 Last Admin: 07/20/16 17:25 Dose: 2,000 mg Meropenem (Merrem) Confirm Administered Dose 500 mg .ROUTE .STK-MED ONE Stop: 07/22/16 06:41 Last Admin: 07/22/16 07:34 Dose: 500 mg Midazolam HCl (Versed 1 Mg/Ml) Confirm Administered Dose 2 mg .ROUTE .STK-MED ONE Stop: 07/20/16 16:46 Midazolam HCl (Versed 1 Mg/Ml) Confirm Administered Dose 2 mg .ROUTE .STK-MED ONE Stop: 07/22/16 07:04 Morphine Sulfate (Morphine Sugar Sampler 150 Mg In 30 Ml) 150 mg IV ASDIRECTED RUMA PRN Reason: Protocol Last Admin: 07/22/16 06:49 Dose: 150 mg Morphine Sulfate (Morphine Sugar Sampler 150 Mg In 30 Ml) 0 mg IV ASDIRECTED PRN; Protocol PRN Reason: PAIN Last Admin: 07/26/16 03:12 Dose: 150 mg Naloxone HCl (Narcan) 0.1 mg IV ASDIRECTED PRN PRN Reason: decreased respiratory rate Naloxone HCl (Narcan) 0.1 mg IV ASDIRECTED PRN PRN Reason: decreased respiratory rate Naloxone HCl (Narcan) Confirm Administered Dose 0.4 mg .ROUTE .STK-MED ONE Stop: 07/20/16 20:01 Naloxone HCl (Narcan) 0.1 mg IV ASDIRECTED PRN PRN Reason: decreased respiratory rate Neostigmine Methylsulfate (Neostigmine) Confirm Administered Dose 5 mg .ROUTE .STK-MED ONE Stop: 07/16/16 07:27 Neostigmine Methylsulfate (Neostigmine) Confirm Administered Dose 5 mg .ROUTE .STK-MED ONE Stop: 07/20/16 16:44 Nitroglycerin (Nitrostat) 0.4 mg SL Q5M PRN PRN Reason: CHEST PAIN Fentanyl Patch Check 0 each TOP DAILY [facility] Last Admin: 07/20/16 09:27 Dose: 1 each Fentanyl Patch Check 0 each TOP DAILY@2200 [facility] Last Admin: 07/20/16 22:19 Dose: Not Given Verify Fentanyl (Patch) 0 each TOP BID [facility] Last Admin: 07/24/16 23:12 Dose: Not Given Non-Formulary Medication (Total Parenteral Nutrition, Central) 1,000 ml .XX .Continue Order [facility] Stop: 07/27/16 16:00 Ondansetron HCl (Zofran) Confirm Administered Dose 4 mg .ROUTE .STK-MED ONE Stop: 07/16/16 07:27 Ondansetron HCl (Zofran) 4 mg IVPUSH Q4H PRN PRN Reason: NAUSEA Last Admin: 07/17/16 10:56 Dose: 4 mg Ondansetron HCl (Zofran) Confirm Administered Dose 4 mg .ROUTE .STK-MED ONE Stop: 07/20/16 16:44 Oxycodone/Acetaminophen (Percocet 325-5 Mg) 1 - 2 tab PO Q4H PRN PRN Reason: PAIN Last Admin: 07/20/16 03:34 Dose: 2 tab Pantoprazole Sodium (Protonix Iv) 40 mg IV Q24H [facility] Last Admin: 07/25/16 20:56 Dose: 40 mg Polyethylene Glycol (Miralax) 119 gm PO ONETIME ONE Stop: 07/20/16 10:01 Last Admin: 07/20/16 09:35 Dose: 119 gm Propofol (Diprivan 20 Ml) Confirm Administered Dose 200 mg .ROUTE .STK-MED ONE Stop: 07/16/16 07:27 Propofol (Diprivan 20 Ml) Confirm Administered Dose 200 mg .ROUTE .STK-MED ONE Stop: 07/20/16 16:44 Propofol (Diprivan 20 Ml) Confirm Administered Dose 200 mg .ROUTE .STK-MED ONE Stop: 07/22/16 07:04 Rocuronium [place] (Zemuron) Confirm Administered Dose 50 mg .ROUTE .STK-MED ONE Stop: 07/16/16 07:27 Rocuronium [place] (Zemuron) Confirm Administered Dose 50 mg .ROUTE .STK-MED ONE Stop: 07/20/16 16:44 Rocuronium [place] (Zemuron) Confirm Administered Dose 50 mg .ROUTE .STK-MED ONE Stop: 07/20/16 18:24 Sodium Chloride (Saline Flush) 10 ml IV ASDIRECTED PRN PRN Reason: LINE FLUSH Succinylcholine Chloride (Succinylcholine In Ns Pf) Confirm Administered Dose 200 mg .ROUTE .STK-MED ONE Stop: 07/16/16 07:27 Succinylcholine Chloride (Succinylcholine In Ns Pf) Confirm Administered Dose 200 mg .ROUTE .STK-MED ONE Stop: 07/20/16 16:44 Tamsulosin HCl (Flomax) 0.4 mg PO BEDTIME RUMA Last Admin: 07/19/16 21:18 Dose: 0.4 mg Tamsulosin HCl (Flomax) 0.4 mg PO ONETIME ONE Stop: 07/17/16 09:01 Last Admin: 07/17/16 10:18 Dose: 0.4 mg Tamsulosin HCl (Flomax) 0.4 mg PO ONETIME ONE Stop: 07/24/16 08:31 Last Admin: 07/24/16 09:06 Dose: 0.4 mg Vancomycin HCl (Vancomycin) 1 gm IV .PHARMACY TO DOSE RUMA Stop: 07/25/16 12:00 - Exam Quality Assessment: No: supplemental oxygen General: alert, oriented, cooperative, mild distress Neck: supple Lungs: Clear to auscultation, Normal respiratory effort Cardiovascular: Regular Rate, Regular Rhythm Abdomen: soft, no distension, tenderness Extremities: no edema Skin: warm, dry Wound/Incisions: drainage (mild SS drainage from incision just above the umbilicus) Psy/Mental Status: alert, normal affect Consult PN Assessment/Plan Procedures: Procedures ASSAY OF TROPONIN QUANT (08/25/13) CARDIOVASCULAR STRESS TEST (11/07/14) CHEST X-RAY 1 VIEW FRONTAL (08/25/13) COMPLETE CBC W/AUTO DIFF WBC (08/25/13) COMPREHEN METABOLIC PANEL (08/25/13) ELECTROCARDIOGRAM REPORT (08/25/13) ELECTROCARDIOGRAM TRACING (08/25/13) EMERGENCY DEPT VISIT (08/25/13) EMERGENCY DEPT VISIT (08/25/13) HT MUSCLE IMAGE SPECT MULT (11/07/14) INITIAL OBSERVATION CARE (08/25/13) METABOLIC PANEL TOTAL CA (08/25/13) OBSERVATION CARE DISCHARGE (08/25/13) ROUTINE VENIPUNCTURE (08/25/13) THER/PROPH/DIAG INJ IV PUSH (08/25/13) TX/PRO/DX INJ NEW DRUG ADDON (08/25/13) Problem List Initiated/Reviewed/Updated: Yes My Orders last 24 hours: My Active Orders 07/27/16 16:00 Lidocaine 2% [Xylocaine 2% Viscous] 30 ml Alum Hydrox/Mag Hydrox/Simeth [Mag-Al Plus] 30 ml diphenhydrAMINE [Benadryl] 75 mg PO QID 07/27/16 18:39 Acetaminophen [Tylenol] 650 mg PO Q4H PRN diphenhydrAMINE [Benadryl] 25 mg PO BEDTIME PRN 07/27/16 Dinner Full Liquid Diet [DIET] 07/29/16 05:00 CBC W/O DIFF,HEMOGRAM [HEME] Timed (1) COMPREHENSIVE METABOLIC PN,CMP [CHEM] Timed MAGNESIUM [CHEM] Timed PHOSPHORUS [CHEM] Timed Plan: ASSESSMENT AND RECOMMENDATIONS Probable wound infection - purulent drainage from lower part of her abdominal wound and cultures growing yeast with identification pending. slowly seems to be improving but still has a lot of subjective discomfort. Drainage from the surgical wound in the umbilicus seems to be decreasing each day. Erythema around the jarret has been improving. -continue fluconazole -continue oral oxycodone with as needed hydromorphone -Followup blood and wound cultures SEPSIS SECONDARY TO INTESTINAL PERFORATION - status post delayed primary closure done 07/24, hemodynamically stable. Cultures from surgery are growing enterococcus and Escherichia coli. clinically seems to be getting better from the standpoint. -Postoperative care per surgical team -followup cultures -continue ceftriaxone -continue vancomycin for enterococcal coverage, because of his penicillin allergy -nutritional support with TPN ACUTE KIDNEY INJURY - likely secondary to hypotension related to sepsis, renal function has been stable for several days with good urine output. -Continue to monitor urine output and renal function closely STATUS POST ABDOMINAL WALL HERNIA REPAIR - bowels started moving yesterday. -Advance to full liquids CORONARY ARTERY DISEASE-asymptomatic Caden Momin M.D.
[2016-07-28] MEDS: Vancomycin 1.7 GM in Sodium Chloride 0.9% 250 ML IV SCH ×2 (11:35→23:38)
[2016-07-28] MEDS: cefTRIAXone 2 GM in Sodium Chloride 0.9% 50 ML IV SCH (13:19)
[2016-07-28] MEDS: traMADol 50 MG Tab PO PRN (19:29)
[2016-07-28] MEDS: Pantoprazole 40 MG Tab.CR PO SCH (20:53)
[2016-07-28] MEDS: Tamsulosin 0.4 MG Cap.ER PO SCH (20:53)
[2016-07-29] MEDS: traMADol 50 MG Tab PO PRN ×5 (00:38→21:57)
[2016-07-29] MEDS: diphenhydrAMINE 25 MG Cap PO PRN (00:39)
[2016-07-29] MEDS: Acetaminophen 325 MG Tab PO PRN (00:39)
[2016-07-29] MEDS: 1: AA 5%/Calcium/D15W/Lytes 1,000 ML with MVI, Adult with Vitamin K 10 ML, Chromium/Copp IV SCH ×6 (04:34→17:10)
[2016-07-29] MEDS: Lidocaine 2% 30 ML, Alum Hydrox/Mag Hydrox/Simeth 30 ML, diphenhydrAMINE 75 MG PO SCH ×12 (06:24→21:52)
[2016-07-29] MEDS: Albuterol/Ipratropium 3.0-0.5 MG/3 ML Neb Soln INH SCH ×4 (07:32→21:56)
[2016-07-29] MEDS ORDERED: Central Total Parenteral Nutrition Bag SCH (07:45)
[2016-07-29] MEDS ORDERED: Magnesium Hydroxide 400 MG/5 ML Susp 30 ML Cup PO ONE (09:00)
--- NOTE | 2016-07-29 09:18 | PN ---
DATE OF SERVICE: 07/29/2016 SUBJECTIVE: Srinivas's temp-max was 100.5. Creatinine is 1.4. WBC is 17.3. He had no bowel movement yesterday. Actually, the oral intake was 960. ALLIE drains have put out 10, 8, 7, 75, 12, and 140. The tramadol is helping with pain, and he is less confused. Breakfast that he consumed 10%, lunch 20%, dinner was left blank. REVIEW OF SYSTEMS: Remainder of review of systems negative for any pertinent positives or negatives. OBJECTIVE: GENERAL: Srinivas Lofton is a 66-year-old male. He is sitting up in the chair. VITAL SIGNS: TPR 97.5, 97, 20, blood pressure 153/68. HEENT: Negative. NECK: Supple. HEART: Regular rate and rhythm. LUNGS: Clear. ABDOMEN: Dressings are dry and intact. ALLIE drains as stated above. EXTREMITIES: Without peripheral edema. ASSESSMENT: 1. Diagnostic laparoscopy with lysis of adhesion, repair of recurrent incarcerated umbilical hernia with mesh, removal of previous mesh, placement of Vicryl mesh to displace small bowel and omentum from newly placed mesh to limit recurrent adhesive formation from the pelvis and abdominal wall and associated areas of mesh placement for recurrent incarcerated hernia. Extensive adhesions between the previously placed mass and omentum on the bowel on 07/16/2016. 2. Exploratory laparotomy with distal resection, total abdominal colectomy, removal of intraperitoneal mesh, insertion of central vein catheter on 07/20/2016. 3. Delayed primary closure on 07/22/2016. PLAN: 1. Continue same TPN rate and content. 2. Check CBC, CMP, mag, phos in a.m. 3. GI soft diet. 4. Milk of magnesia 30 mL p.o. now followed by Dulcolax 20 mg p.o. 1 hour later. 5. Good pulmonary toilet encouraged. 6. Encouraged oral intake. 7. We will evaluate p.r.n. or in a.m. Lidia Rao PA-C /[id number]
[2016-07-29] MEDS: Fluconazole/Normal Saline 200 MG in Premix Bag 1 BAG IV SCH (09:59)
[2016-07-29] MEDS ORDERED: Bisacodyl 5 MG Tab PO ONE (10:00)
[2016-07-29] MEDS ORDERED: Acetaminophen Soln 650 MG/20.3 ML UD Cup PO PRN (10:32)
[2016-07-29] MEDS ORDERED: diphenhydrAMINE 25 MG/10 ML CUP PO PRN (10:33)
[2016-07-29] MEDS ORDERED: diphenhydrAMINE 25 MG/10 ML CUP GTUBE PRN (10:37)
[2016-07-29] MEDS: Losartan 50 MG Tab PO SCH (10:59)
[2016-07-29] MEDS: busPIRone 5 MG Tab PO SCH (10:59)
[2016-07-29] MEDS: Acetaminophen Soln 650 MG/20.3 ML UD Cup GTUBE PRN (11:10)
[2016-07-29] MEDS: Nystatin Susp 100,000 Unit/ML 5 ML UD Cup PO SCH ×4 (11:23→21:51)
[2016-07-29] MEDS: Docusate Sodium Liquid 100 MG/10 ML UD Cup GTUBE SCH ×2 (11:23→21:51)
[2016-07-29] MEDS: Vancomycin 1.7 GM in Sodium Chloride 0.9% 250 ML IV SCH ×2 (11:37→23:37)
--- NOTE | 2016-07-29 12:13 | PCM.CONSN ---
- General Info Date of Service: 07/29/16 Functional Status: Reports: pain controlled, ambulating - Review of Systems General: Reports: Weakness HEENT: Reports: sore throat Gastrointestinal: Reports: Abdominal pain Systems Review Comment:: some difficulty with ongoing confusion but no acute events overnight. Abdominal pain seems to be improving though he continues to appear to be quite uncomfortable most of the day. Drainage from the dominant load has been improving. ALLIE drainage that seems to be slowly decreasing as well. He continues to have difficulty with him and hallucinations. He tried to call 911 yesterday but was not quite able to figure out how to dial the phone number. Ambulation has been slowly improving. Continues to have some low-grade temperature elevations but no true fevers. Today he is complaining of a sore tongue sore mouth. - Patient Data Vitals - most recent: Last Vital Signs Temp 36.8 C 07/29/16 11:33 Pulse 75 07/29/16 11:33 Resp 18 07/29/16 11:33 BP 138/76 07/29/16 11:33 Pulse Ox 96 07/29/16 11:33 Weight - most recent: 108.227 kg I&O - last 24 hours: Intake & Output 07/28/16 07/29/16 07/29/16 22:59 06:59 14:59 Intake Total 1119 1620 517 Output Total 800 1015 365 Balance 319 605 152 Lab Results last 24 hrs: Laboratory Results - last 24 hr 07/29/16 07/29/16 Range/Units 04:15 04:15 WBC 17.3 H (4.5-11.0) K/uL RBC 4.14 L (4.30-5.90) M/uL Hgb 12.2 (12.0-15.0) g/dL Hct 37.5 L (40.0-54.0) % MCV 91 (80-98) fL MCH 30 (27-31) pg MCHC 33 (32-36) % Plt Count 386 (150-400) K/uL Sodium 147 (140-148) mmol/L Potassium 4.1 (3.6-5.2) mmol/L Chloride 114 H (100-108) mmol/L Carbon Dioxide 24 (21-32) mmol/L Anion Gap 13.1 (5.0-14.0) mmol/L BUN 32 H (7-18) mg/dL Creatinine 1.4 H (0.8-1.3) mg/dL Est Cr Clr Drug Dosing 55.17 mL/min Estimated GFR (MDRD) 51 L (>60) Glucose 119 H (74-106) mg/dL Calcium 7.8 L (8.5-10.1) mg/dL Phosphorus 4.3 (2.5-4.9) mg/dL Magnesium 1.9 (1.8-2.4) mg/dL Total Bilirubin 1.0 (0.2-1.0) mg/dL AST 52 H (15-37) U/L ALT 91 H (12-78) U/L Alkaline Phosphatase 38 L (46-116) U/L Total Protein 6.1 L (6.4-8.2) g/dL Albumin 2.3 L (3.4-5.0) g/dL Globulin 3.8 H (2.3-3.5) g/dL Albumin/Globulin Ratio 0.6 L (1.2-2.2) Med Orders - Current: Current Medications Acetaminophen (Tylenol) 650 mg GTUBE Q4H PRN PRN Reason: Pain (mild 1-3) Last Admin: 07/29/16 11:10 Dose: 650 mg Albuterol/Ipratropium (Duoneb 3.0-0.5 Mg/3 Ml) 3 ml INH QIDRT [facility] Last Admin: 07/29/16 11:18 Dose: Not Given Albuterol/Ipratropium (Duoneb 3.0-0.5 Mg/3 Ml) 3 ml INH ASDIRECTED PRN PRN Reason: * Last Admin: 07/23/16 23:50 Dose: 3 ml Bisacodyl (Dulcolax) 10 mg RECTAL DAILY PRN PRN Reason: Constipation Lidocaine HCl 30 ml/ Al Hydroxide/Mg Hydroxide 30 ml/Diphenhydramine HCl 75 mg 0 ml PO QID [facility] Last Admin: 07/29/16 11:23 Dose: Not Given Dimethicone/Zinc Oxide (Rash Relief-Zinc Oxide Romayor) 0 gm TOP ASDIRECTED PRN PRN Reason: Rash Docusate Sodium (Colace 50 Mg/5 Ml Liquid) 100 mg GTUBE BID [facility] Last Admin: 07/29/16 11:23 Dose: 100 mg Heparin Sodium (Porcine) (Heparin Lock Flush 100 Units/Ml Syringe) 500 units FLUSH ASDIRECTED PRN PRN Reason: IV Use Last Admin: 07/26/16 04:30 Dose: 500 units Fluconazole/Sodium Chloride (200 mg/ Premix) 100 mls @ 100 mls/hr IV Q24H [facility] Last Admin: 07/29/16 09:59 Dose: 100 mls/hr Ceftriaxone Sodium 2 gm/ (Sodium Chloride) 50 mls @ 100 mls/hr IV Q24H [facility] Last Admin: 07/28/16 13:19 Dose: 100 mls/hr Multivitamins/Minerals 10 ml/Chromium/Copper/Manganese/Seleni/Zn 1 ml/ Amino Ac/ Electrol/Dextrose/Calcium 1,011 mls @ 82 mls/hr IV .BY DURATION [facility] Last Admin: 07/28/16 15:39 Dose: 82 mls/hr Amino Ac/Electrol/Dextrose/Calcium (Clinimix E 09/27) 1,000 mls @ 82 mls/hr IV .BY DURATION [facility] Last Admin: 07/29/16 04:34 Dose: 82 mls/hr Vancomycin HCl 1.7 gm/ Sodium (Chloride) 250 mls @ 167 mls/hr IV Q12H [facility] Last Admin: 07/29/16 11:37 Dose: 167 mls/hr Lorazepam (Ativan) 0.5 mg PO Q4H PRN PRN Reason: Anxiety Last Admin: 07/27/16 21:55 Dose: 0.5 mg Losartan Potassium (Cozaar) 50 mg PO DAILY [facility] Last Admin: 07/29/16 10:59 Dose: 50 mg Magnesium Hydroxide (Milk Of Magnesia) 30 ml PO Q4H PRN PRN Reason: Constipation Naloxone HCl (Narcan) 0.1 mg IV ASDIRECTED PRN PRN Reason: decreased respiratory rate Nitroglycerin (Nitrostat) 0.4 mg SL Q5M PRN PRN Reason: CHEST PAIN Non-Formulary Medication (Total Parenteral Nutrition, Central) 1,000 ml .XX .Continue Order [facility] Stop: 07/29/16 23:00 Nystatin (Mycostatin) 5 ml PO QID [facility] Last Admin: 07/29/16 11:23 Dose: 5 ml Ondansetron HCl (Zofran) 4 mg IVPUSH Q4H PRN PRN Reason: NAUSEA Pantoprazole Sodium (Protonix) 40 mg PO BEDTIME [facility] Last Admin: 07/28/16 20:53 Dose: 40 mg Tamsulosin HCl (Flomax) 0.4 mg PO BEDTIME [facility] Last Admin: 07/28/16 20:53 Dose: 0.4 mg Tramadol HCl (Ultram) 50 - 100 mg PO Q4H PRN PRN Reason: Pain Last Admin: 07/29/16 06:23 Dose: 100 mg Discontinued Medications Acetaminophen (Tylenol) 650 mg PO Q4H PRN PRN Reason: Fever Last Admin: 07/26/16 19:54 Dose: 650 mg Acetaminophen (Tylenol) 650 mg PO Q4H PRN PRN Reason: Pain (mild 1-3) Last Admin: 07/29/16 00:39 Dose: 650 mg Acetaminophen (Tylenol) 650 mg PO Q4H PRN PRN Reason: Pain (mild 1-3) Albuterol (Proventil Neb Soln) 2.5 mg NEB Q4H PRN PRN Reason: Dyspnea Last Admin: 07/20/16 16:13 Dose: 2.5 mg Bacitracin (Bacitracin Oint) 0 gm TOP TID [facility] Last Admin: 07/20/16 13:58 Dose: 1 applic Bisacodyl (Dulcolax) 10 mg PO BID [facility] Last Admin: 07/20/16 09:22 Dose: 10 mg Bisacodyl (Dulcolax) 10 mg RECTAL BID PRN PRN Reason: Constipation Last Admin: 07/19/16 17:31 Dose: 10 mg Bisacodyl (Dulcolax) 20 mg PO ONETIME ONE Stop: 07/26/16 10:01 Last Admin: 07/26/16 09:09 Dose: 20 mg Bisacodyl (Dulcolax) 10 mg RECTAL BID [facility] Last Admin: 07/26/16 21:21 Dose: 10 mg Bisacodyl (Dulcolax) 20 mg PO ONETIME ONE Stop: 07/29/16 10:01 Bupivacaine HCl (Marcaine 0.5%) Confirm Administered Dose 50 ml .ROUTE .STK-MED ONE Stop: 07/22/16 06:41 Last Admin: 07/22/16 07:34 Dose: 20 ml Bupivacaine HCl/Epinephrine Bitart (Marcaine 0.5%/Epinephrine 1:200,000) Confirm Administered Dose 50 ml .ROUTE .STK-MED ONE Stop: 07/16/16 06:43 Last Admin: 07/16/16 07:28 Dose: 10 ml Buspirone HCl (Buspar) 15 mg PO DAILY [facility] Last Admin: 07/20/16 09:21 Dose: 15 mg Buspirone HCl (Buspar) 7.5 mg PO QPM [facility] Last Admin: 07/20/16 17:57 Dose: Not Given Buspirone HCl (Buspar) 15 mg PO DAILY [facility] Last Admin: 07/29/16 10:59 Dose: 15 mg Buspirone HCl (Buspar) 7.5 mg PO BEDTIME [facility] Last Admin: 07/28/16 20:52 Dose: 7.5 mg Dexamethasone (Dexamethasone) Confirm Administered Dose 4 mg .ROUTE .STK-MED ONE Stop: 07/16/16 07:27 Dexamethasone (Dexamethasone) Confirm Administered Dose 4 mg .ROUTE .STK-MED ONE Stop: 07/20/16 16:44 Diatrizoate Meglum/Diatrizoate Sod (Gastrografin 37%) 1,200 ml .XX . DIRECTED [facility] Stop: 07/20/16 14:16 Last Admin: 07/20/16 15:27 Dose: 1,200 ml Diphenhydramine HCl (Benadryl) 25 mg PO BEDTIME PRN PRN Reason: Sleep Last Admin: 07/29/16 00:39 Dose: 25 mg Diphenhydramine HCl (Benadryl) 25 mg PO BEDTIME PRN PRN Reason: SLEEP Diphenhydramine HCl (Benadryl) 25 mg GTUBE BEDTIME PRN PRN Reason: SLEEP Docusate Sodium (Colace) 100 mg PO BID [facility] Last Admin: 07/28/16 20:52 Dose: 100 mg Fentanyl (Sublimaze) Confirm Administered Dose 500 mcg .ROUTE .STK-MED ONE Stop: 07/16/16 07:27 Fentanyl (Sublimaze) Confirm Administered Dose 250 mcg .ROUTE .STK-MED ONE Stop: 07/16/16 09:21 Fentanyl (Duragesic) 25 mcg TRDERM Q72H [facility] Last Admin: 07/20/16 09:24 Dose: 25 mcg Fentanyl (Sublimaze) Confirm Administered Dose 250 mcg .ROUTE .STK-MED ONE Stop: 07/20/16 16:45 Fentanyl (Sublimaze) Confirm Administered Dose 250 mcg .ROUTE .STK-MED ONE Stop: 07/20/16 18:24 Fentanyl (Duragesic) 25 mcg TRDERM Q72H [facility] Last Admin: 07/20/16 22:18 Dose: Not Given Fentanyl (Duragesic) 25 mcg TRDERM Q72H RUMA Fentanyl (Sublimaze) Confirm Administered Dose 100 mcg .ROUTE .STK-MED ONE Stop: 07/22/16 07:04 Fentanyl (Duragesic) 50 mcg TRDERM Q72H [facility] Last Admin: 07/22/16 09:40 Dose: 50 mcg Furosemide (Lasix) 20 mg IVPUSH Q8H [facility] Last Admin: 07/24/16 15:59 Dose: Not Given Glycopyrrolate () Confirm Administered Dose 1 mg .ROUTE .STK-MED ONE Stop: 07/16/16 07:27 Glycopyrrolate () Confirm Administered Dose 1 mg .ROUTE .STK-MED ONE Stop: 07/20/16 16:44 Haloperidol Lactate (Haldol) 2.5 mg IVPUSH ONETIME ONE Stop: 07/23/16 06:18 Last Admin: 07/23/16 06:26 Dose: 2.5 mg Haloperidol Lactate (Haldol) 2.5 mg IVPUSH Q1H PRN PRN Reason: PSYCHOSIS/ANXIETY Last Admin: 07/23/16 18:10 Dose: 2.5 mg Heparin Sodium (Porcine) (Heparin Lock Flush 100 Units/Ml Syringe) Confirm Administered Dose 500 units .ROUTE .STK-MED ONE Stop: 07/20/16 17:25 Last Admin: 07/20/16 17:28 Dose: 500 units Heparin Sodium (Porcine) (Heparin Sodium) Confirm Administered Dose 5,000 units .ROUTE .STK-MED ONE Stop: 07/20/16 20:54 Last Admin: 07/20/16 21:06 Dose: 5,000 units Hydromorphone HCl (Dilaudid Mail Handler Assistant 15 Mg In Ns 30 Ml) 0 mg IV ASDIRECTED PRN; Protocol PRN Reason: Pain Last Admin: 07/16/16 07:37 Dose: 0.3 mg Hydromorphone HCl (Dilaudid Mail Handler Assistant 15 Mg In Ns 30 Ml) 0 mg IV ASDIRECTED PRN; Protocol PRN Reason: PAIN Last Admin: 07/20/16 07:38 Dose: 15 mg Hydromorphone HCl (Dilaudid Mail Handler Assistant 15 Mg In Ns 30 Ml) 0 mg IV ASDIRECTED PRN; Protocol PRN Reason: PAIN Last Admin: 07/21/16 07:19 Dose: 15 mg Hydromorphone HCl (Dilaudid) 0.5 - 1 mg IVPUSH Q2H PRN PRN Reason: Pain (severe 7-10) Last Admin: 07/27/16 00:30 Dose: 1 mg Hydroxyzine HCl (Vistaril) 100 mg IM Q4H PRN PRN Reason: Pain Last Admin: 07/20/16 14:41 Dose: 100 mg Hydroxyzine HCl (Vistaril) 100 mg IM Q4H PRN PRN Reason: PAIN Last Admin: 07/26/16 12:16 Dose: 100 mg Hydroxyzine HCl (Vistaril) 50 mg IM ONETIME ONE Stop: 07/22/16 06:14 Last Admin: 07/22/16 06:29 Dose: 50 mg Clindamycin Phosphate 900 mg/ (Sodium Chloride) 106 mls @ 212 mls/hr IV ONETIME ONE Stop: 07/16/16 07:59 Last Admin: 07/16/16 07:48 Dose: 212 mls/hr Dextrose/Lactated Ringer's (Dextrose 5%-Lactated Ringers) 1,000 mls @ 100 mls/ hr IV ASDIRECTED [facility] Last Admin: 07/16/16 07:37 Dose: 100 mls/hr Lactated Ringer's (Ringers, Lactated) Confirm Administered Dose 1,000 mls @ as directed .ROUTE .STK-MED ONE Stop: 07/16/16 09:17 Dextrose/Lactated Ringer's (Dextrose 5%-Lactated Ringers) 1,000 mls @ 150 mls/ hr IV ASDIRECTED RUMA Last Admin: 07/18/16 04:26 Dose: 150 mls/hr Cefazolin Sodium 2 gm/ Sodium (Chloride) 50 mls @ 100 mls/hr IV Q8H [facility] Stop: 07/17/16 06:29 Last Admin: 07/17/16 05:08 Dose: 100 mls/hr Dextrose/Lactated Ringer's (Dextrose 5%-Lactated Ringers) 1,000 mls @ 100 mls/ hr IV ASDIRECTED [facility] Last Admin: 07/19/16 14:53 Dose: 100 mls/hr Acetaminophen 1,000 mg/ Premix 100 mls @ 400 mls/hr IV Q6H PRN PRN Reason: PAIN Stop: 07/20/16 10:30 Acetaminophen 1,000 mg/ Premix 100 mls @ 400 mls/hr IV NOW ONE Stop: 07/20/16 07:32 Last Admin: 07/20/16 07:31 Dose: 400 mls/hr Lactated Ringer's (Ringers, Lactated) 1,000 mls @ 1,000 mls/hr IV ASDIRECTED [facility] Stop: 07/20/16 09:31 Last Admin: 07/20/16 09:10 Dose: 1,000 mls/hr Levofloxacin/Dextrose 500 mg/ (Premix) 100 mls @ 100 mls/hr IV Q24H [facility] Last Admin: 07/20/16 09:22 Dose: 100 mls/hr Acetaminophen 1,000 mg/ Premix 100 mls @ 400 mls/hr IV Q6H [facility] Last Admin: 07/20/16 22:20 Dose: 400 mls/hr Lactated Ringer's (Ringers, Lactated) 1,000 mls @ 250 mls/hr IV ASDIRECTED [facility] Stop: 07/20/16 14:01 Last Admin: 07/20/16 11:04 Dose: 250 mls/hr Meropenem 1 gm/ Sodium (Chloride) 50 mls @ 100 mls/hr IV Q8H [facility] Last Admin: 07/20/16 11:41 Dose: 100 mls/hr Lactated Ringer's (Ringers, Lactated) 1,000 mls @ 999 mls/hr IV BOLUS ONE Stop: 07/20/16 17:19 Last Admin: 07/20/16 21:10 Dose: 999 mls/hr Lactated Ringer's (Ringers, Lactated) Confirm Administered Dose 1,000 mls @ as directed .ROUTE .STK-MED ONE Stop: 07/20/16 18:26 Lactated Ringer's (Ringers, Lactated) Confirm Administered Dose 1,000 mls @ as directed .ROUTE .STK-MED ONE Stop: 07/20/16 18:27 Dextrose/Lactated Ringer's (Dextrose 5%-Lactated Ringers) 1,000 mls @ 100 mls/ hr IV ASDIRECTED [facility] Stop: 07/23/16 09:59 Last Admin: 07/23/16 00:19 Dose: 100 mls/hr Lactated Ringer's (Ringers, Lactated) 1,000 mls @ 100 mls/hr IV ASDIRECTED [facility] Stop: 07/21/16 17:59 Last Admin: 07/21/16 07:22 Dose: 100 mls/hr Aztreonam 1 gm/ Sodium (Chloride) 50 mls @ 100 mls/hr IV Q8HR [facility] Last Admin: 07/21/16 05:06 Dose: 100 mls/hr Meropenem 500 mg/ Sodium (Chloride) 50 mls @ 100 mls/hr IV Q8H [facility] Last Admin: 07/26/16 05:17 Dose: 100 mls/hr Acetaminophen 1,000 mg/ Premix 100 mls @ 400 mls/hr IV Q6H [facility] Stop: 07/21/16 16:14 Last Admin: 07/21/16 17:12 Dose: 400 mls/hr Aztreonam/Dextrose 1 gm/ (Premix) 50 mls @ 100 mls/hr IV Q8HR [facility] Last Admin: 07/25/16 05:52 Dose: 100 mls/hr Lactated Ringer's (Ringers, Lactated) 1,000 mls @ 40 mls/hr IV ASDIRECTED [facility] Lactated Ringer's (Ringers, Lactated) 1,000 mls @ 40 mls/hr IV ASDIRECTED [facility] Last Admin: 07/23/16 03:55 Dose: 40 mls/hr Albumin Human 12.5 gm/ Premix 50 mls @ 25 mls/hr IV Q24H [facility] Stop: 07/26/16 10:59 Last Admin: 07/26/16 09:09 Dose: 25 mls/hr Albumin Human 12.5 gm/ Premix 50 mls @ 25 mls/hr IV Q24H [facility] Stop: 07/26/16 12:59 Last Admin: 07/26/16 10:44 Dose: 25 mls/hr Albumin Human 12.5 gm/ Premix 50 mls @ 25 mls/hr IV Q24H [facility] Stop: 07/26/16 14:59 Last Admin: 07/26/16 12:45 Dose: 25 mls/hr Albumin Human 12.5 gm/ Premix 50 mls @ 25 mls/hr IV Q24H [facility] Stop: 07/26/16 16:59 Last Admin: 07/26/16 15:09 Dose: 25 mls/hr Multivitamins/Minerals 10 ml/Chromium/Copper/Manganese/Seleni/Zn 1 ml/ Amino Ac/ Electrol/Dextrose/Calcium 1,011 mls @ 82 mls/hr IV .BY DURATION [facility] Last Admin: 07/23/16 10:23 Dose: 82 mls/hr Amino Ac/Electrol/Dextrose/Calcium (Clinimix E 5/15) 1,000 mls @ 82 mls/hr IV .BY DURATION [facility] Last Admin: 07/23/16 22:44 Dose: 82 mls/hr Lactated Ringer's (Ringers, Lactated) 1,000 mls @ 0 mls/hr IV ASDIRECTED [facility] PRN Reason: KVO Last Admin: 07/24/16 19:59 Dose: 25 mls/hr Acetaminophen 1,000 mg/ Premix 100 mls @ 400 mls/hr IV Q6H PRN PRN Reason: Pain Stop: 07/24/16 23:18 Last Admin: 07/24/16 20:14 Dose: 400 mls/hr Potassium Chloride 40 meq/ (Premix) 100 mls @ 25 mls/hr IV ONETIME ONE Stop: 07/24/16 12:29 Last Admin: 07/24/16 08:56 Dose: 25 mls/hr Potassium Chloride 20 meq/ (Premix) 100 mls @ 50 mls/hr IV ONETIME ONE Stop: 07/24/16 14:59 Last Admin: 07/24/16 12:31 Dose: 50 mls/hr Multivitamins/Minerals 10 ml/Chromium/Copper/Manganese/Seleni/Zn 1 ml/ Amino Ac/ Electrol/Dextrose/Calcium 1,011 mls @ 82 mls/hr IV .BY DURATION [facility] Last Admin: 07/25/16 13:40 Dose: 82 mls/hr Amino Ac/Electrol/Dextrose/Calcium (Clinimix E 5/15) 1,000 mls @ 82 mls/hr IV .BY DURATION [facility] Last Admin: 07/26/16 00:18 Dose: 82 mls/hr Lactated Ringer's (Ringers, Lactated) 1,000 mls @ 25 mls/hr IV ASDIRECTED [facility] PRN Reason: KVO Acetaminophen 1,000 mg/ Premix 100 mls @ 400 mls/hr IV Q6H PRN PRN Reason: Pain Stop: 07/26/16 05:10 Last Admin: 07/26/16 03:58 Dose: 400 mls/hr Vancomycin HCl 1.75 gm/ Sodium (Chloride) 250 mls @ 167 mls/hr IV ONETIME ONE Stop: 07/25/16 12:29 Last Admin: 07/25/16 11:35 Dose: 167 mls/hr Vancomycin HCl 1.5 gm/ Sodium (Chloride) 250 mls @ 167 mls/hr IV Q12H [facility] Last Admin: 07/26/16 22:58 Dose: 167 mls/hr Acetaminophen 1,000 mg/ Premix 100 mls @ 400 mls/hr IV Q6H PRN PRN Reason: Pain Stop: 07/27/16 23:45 Last Admin: 07/27/16 15:33 Dose: 400 mls/hr Ketorolac Tromethamine (Toradol) 60 mg IM ONETIME ONE Stop: 07/19/16 17:04 Last Admin: 07/19/16 17:30 Dose: 60 mg Labetalol HCl (Normodyne) 5 - 10 mg IV Q2H PRN PRN Reason: BP Last Admin: 07/25/16 05:19 Dose: 10 mg Labetalol HCl (Normodyne) Confirm Administered Dose 20 mg .ROUTE .STK-MED ONE Stop: 07/25/16 05:16 Last Admin: 07/25/16 08:49 Dose: Not Given Labetalol HCl (Normodyne) 0 mg IV Q2H PRN PRN Reason: BP Last Admin: 07/26/16 11:21 Dose: 10 mg Lidocaine HCl (Xylocaine 2% Jelly) 10 ml MUCMEM ONETIME ONE Stop: 07/16/16 21:15 Last Admin: 07/16/16 21:41 Dose: 10 ml Lidocaine/Epinephrine (Xylocaine 1% With Epinephrine 1:100,000) Confirm Administered Dose 50 ml .ROUTE .STK-MED ONE Stop: 07/22/16 06:41 Last Admin: 07/22/16 07:34 Dose: 20 ml Lorazepam (Ativan) 0.5 - 1 mg IVPUSH Q4H PRN PRN Reason: Anxiety Lorazepam (Ativan) 0.5 mg IVPUSH Q2H PRN PRN Reason: Anxiety Last Admin: 07/23/16 16:53 Dose: 0.5 mg Losartan Potassium (Cozaar) 50 mg PO DAILY [facility] Last Admin: 07/20/16 09:21 Dose: 50 mg Magnesium Citrate (Citrate Of Magnesia) 296 ml PO ONETIME ONE Stop: 07/18/16 09:01 Last Admin: 07/18/16 10:55 Dose: 296 ml Magnesium Hydroxide (Milk Of Magnesia) 30 ml PO ONETIME ONE Stop: 07/19/16 08:46 Last Admin: 07/19/16 10:27 Dose: 30 ml Magnesium Hydroxide (Milk Of Magnesia) 30 ml PO ONETIME ONE Stop: 07/26/16 09:01 Last Admin: 07/26/16 09:09 Dose: 30 ml Magnesium Hydroxide (Milk Of Magnesia) 30 ml PO ONETIME ONE Stop: 07/29/16 09:01 Last Admin: 07/29/16 11:00 Dose: 30 ml Meperidine HCl (Demerol) 100 mg IM ONETIME ONE Stop: 07/20/16 16:01 Last Admin: 07/20/16 16:05 Dose: 100 mg Meperidine HCl (Demerol) 100 mg IM ONETIME ONE Stop: 07/22/16 06:14 Last Admin: 07/22/16 06:28 Dose: 100 mg Meropenem (Merrem) Confirm Administered Dose 500 mg .ROUTE .STK-MED ONE Stop: 07/16/16 06:43 Last Admin: 07/16/16 09:25 Dose: 500 mg Meropenem (Merrem) Confirm Administered Dose 2,000 mg .ROUTE .STK-MED ONE Stop: 07/20/16 17:25 Last Admin: 07/20/16 17:25 Dose: 2,000 mg Meropenem (Merrem) Confirm Administered Dose 500 mg .ROUTE .STK-MED ONE Stop: 07/22/16 06:41 Last Admin: 07/22/16 07:34 Dose: 500 mg Midazolam HCl (Versed 1 Mg/Ml) Confirm Administered Dose 2 mg .ROUTE .STK-MED ONE Stop: 07/20/16 16:46 Midazolam HCl (Versed 1 Mg/Ml) Confirm Administered Dose 2 mg .ROUTE .STK-MED ONE Stop: 07/22/16 07:04 Morphine Sulfate (Morphine Mail Handler Assistant 150 Mg In 30 Ml) 150 mg IV ASDIRECTED [facility] PRN Reason: Protocol Last Admin: 07/22/16 06:49 Dose: 150 mg Morphine Sulfate (Morphine Mail Handler Assistant 150 Mg In 30 Ml) 0 mg IV ASDIRECTED PRN; Protocol PRN Reason: PAIN Last Admin: 07/26/16 03:12 Dose: 150 mg Naloxone HCl (Narcan) 0.1 mg IV ASDIRECTED PRN PRN Reason: decreased respiratory rate Naloxone HCl (Narcan) 0.1 mg IV ASDIRECTED PRN PRN Reason: decreased respiratory rate Naloxone HCl (Narcan) Confirm Administered Dose 0.4 mg .ROUTE .STQHB HOLDINGS-MED ONE Stop: 07/20/16 20:01 Naloxone HCl (Narcan) 0.1 mg IV ASDIRECTED PRN PRN Reason: decreased respiratory rate Neostigmine Methylsulfate (Neostigmine) Confirm Administered Dose 5 mg .ROUTE .STQHB HOLDINGS-MED ONE Stop: 07/16/16 07:27 Neostigmine Methylsulfate (Neostigmine) Confirm Administered Dose 5 mg .ROUTE .STQHB HOLDINGS-MED ONE Stop: 07/20/16 16:44 Nitroglycerin (Nitrostat) 0.4 mg SL Q5M PRN PRN Reason: CHEST PAIN Fentanyl Patch Check 0 each TOP DAILY [facility] Last Admin: 07/20/16 09:27 Dose: 1 each Fentanyl Patch Check 0 each TOP DAILY@2200 [facility] Last Admin: 07/20/16 22:19 Dose: Not Given Verify Fentanyl (Patch) 0 each TOP BID [facility] Last Admin: 07/24/16 23:12 Dose: Not Given Non-Formulary Medication (Total Parenteral Nutrition, Central) 1,000 ml .XX .Continue Order [facility] Stop: 07/27/16 16:00 Ondansetron HCl (Zofran) Confirm Administered Dose 4 mg .ROUTE .STK-MED ONE Stop: 07/16/16 07:27 Ondansetron HCl (Zofran) 4 mg IVPUSH Q4H PRN PRN Reason: NAUSEA Last Admin: 07/17/16 10:56 Dose: 4 mg Ondansetron HCl (Zofran) Confirm Administered Dose 4 mg .ROUTE .STK-MED ONE Stop: 07/20/16 16:44 Oxycodone HCl (Oxycodone) 5 - 10 mg PO Q4H PRN PRN Reason: Pain Last Admin: 07/28/16 12:27 Dose: 10 mg Oxycodone/Acetaminophen (Percocet 325-5 Mg) 1 - 2 tab PO Q4H PRN PRN Reason: PAIN Last Admin: 07/20/16 03:34 Dose: 2 tab Pantoprazole Sodium (Protonix Iv) 40 mg IV Q24H [facility] Last Admin: 07/25/16 20:56 Dose: 40 mg Polyethylene Glycol (Miralax) 119 gm PO ONETIME ONE Stop: 07/20/16 10:01 Last Admin: 07/20/16 09:35 Dose: 119 gm Propofol (Diprivan 20 Ml) Confirm Administered Dose 200 mg .ROUTE .STK-MED ONE Stop: 07/16/16 07:27 Propofol (Diprivan 20 Ml) Confirm Administered Dose 200 mg .ROUTE .STK-MED ONE Stop: 07/20/16 16:44 Propofol (Diprivan 20 Ml) Confirm Administered Dose 200 mg .ROUTE .STK-MED ONE Stop: 07/22/16 07:04 Rocuronium [place] (Zemuron) Confirm Administered Dose 50 mg .ROUTE .STK-MED ONE Stop: 07/16/16 07:27 Rocuronium [place] (Zemuron) Confirm Administered Dose 50 mg .ROUTE .STK-MED ONE Stop: 07/20/16 16:44 Rocuronium [place] (Zemuron) Confirm Administered Dose 50 mg .ROUTE .STK-MED ONE Stop: 07/20/16 18:24 Sodium Chloride (Saline Flush) 10 ml IV ASDIRECTED PRN PRN Reason: LINE FLUSH Succinylcholine Chloride (Succinylcholine In Ns Pf) Confirm Administered Dose 200 mg .ROUTE .STK-MED ONE Stop: 07/16/16 07:27 Succinylcholine Chloride (Succinylcholine In Ns Pf) Confirm Administered Dose 200 mg .ROUTE .STK-MED ONE Stop: 07/20/16 16:44 Tamsulosin HCl (Flomax) 0.4 mg PO BEDTIME RUMA Last Admin: 07/19/16 21:18 Dose: 0.4 mg Tamsulosin HCl (Flomax) 0.4 mg PO ONETIME ONE Stop: 07/17/16 09:01 Last Admin: 07/17/16 10:18 Dose: 0.4 mg Tamsulosin HCl (Flomax) 0.4 mg PO ONETIME ONE Stop: 07/24/16 08:31 Last Admin: 07/24/16 09:06 Dose: 0.4 mg Vancomycin HCl (Vancomycin) 1 gm IV .PHARMACY TO DOSE RUMA Stop: 07/25/16 12:00 - Exam Quality Assessment: No: supplemental oxygen General: alert, cooperative, no acute distress. No: oriented Neck: supple Lungs: Normal respiratory effort Cardiovascular: Regular Rate, Regular Rhythm Abdomen: soft, no distension Extremities: no edema Skin: warm, dry Wound/Incisions: healing well, drainage (mild SS slightly purulent from just above the umbilicus ), erythema (mild around jarret (much better today)) Psy/Mental Status: alert, normal affect, hallucinations (visual ) Consult PN Assessment/Plan Procedures: Procedures ASSAY OF TROPONIN QUANT (08/25/13) CARDIOVASCULAR STRESS TEST (11/07/14) CHEST X-RAY 1 VIEW FRONTAL (08/25/13) COMPLETE CBC W/AUTO DIFF WBC (08/25/13) COMPREHEN METABOLIC PANEL (08/25/13) ELECTROCARDIOGRAM REPORT (08/25/13) ELECTROCARDIOGRAM TRACING (08/25/13) EMERGENCY DEPT VISIT (08/25/13) EMERGENCY DEPT VISIT (08/25/13) HT MUSCLE IMAGE SPECT MULT (11/07/14) INITIAL OBSERVATION CARE (08/25/13) METABOLIC PANEL TOTAL CA (08/25/13) OBSERVATION CARE DISCHARGE (08/25/13) ROUTINE VENIPUNCTURE (08/25/13) THER/PROPH/DIAG INJ IV PUSH (08/25/13) TX/PRO/DX INJ NEW DRUG ADDON (08/25/13) Problem List Initiated/Reviewed/Updated: Yes My Orders last 24 hours: My Active Orders 07/28/16 18:38 traMADol [Ultram] 50 - 100 mg PO Q4H PRN 07/29/16 10:35 Acetaminophen [Tylenol] 650 mg GTUBE Q4H PRN Plan: ASSESSMENT AND RECOMMENDATIONS Probable wound infection - purulent drainage from lower part of her abdominal wound and cultures growing yeast. clinically improving with fluconazole therapy. Pain seems to be improving and examination is improving. -continue fluconazole -continue oral oxycodone with as needed hydromorphone -Followup blood and wound cultures SEPSIS SECONDARY TO INTESTINAL PERFORATION - status post delayed primary closure done 07/24, hemodynamically stable. Cultures from surgery are growing enterococcus and Escherichia coli. clinically seems to be getting better from the standpoint. -Postoperative care per surgical team -followup cultures -continue ceftriaxone -continue vancomycin for enterococcal coverage, because of his penicillin allergy -nutritional support with TPN Thrush - tongue has been sore but did not have a thrush-like appearance until this morning. Doing better with oral cares and oral nystatin. -Continue oral nystatin and Magic mouthwash ACUTE KIDNEY INJURY - likely secondary to hypotension related to sepsis, renal function has improved and has been stable for several days with good urine output. -Continue to monitor urine output and renal function closely STATUS POST ABDOMINAL WALL HERNIA REPAIR - bowels have been moving but appetite is not good. He is on TPN for nutritional support in this could be contributing to his lack of appetite. -continue full liquids -try to wean TPN as able CORONARY ARTERY DISEASE-asymptomatic Caden Momin M.D.
[2016-07-29] MEDS: cefTRIAXone 2 GM in Sodium Chloride 0.9% 50 ML IV SCH (13:00)
[2016-07-29] MEDS: Pantoprazole 40 MG Tab.CR PO SCH (21:51)
[2016-07-29] MEDS: Tamsulosin 0.4 MG Cap.ER PO SCH (21:52)
[2016-07-30] MEDS ORDERED: Sodium Chloride 0.9% 10 ML Syringe FLUSH ONE (02:21)
[2016-07-30] MEDS ORDERED: Iopamidol 612 MG/ML 150 ML Bottle IV SCH (02:30)
[2016-07-30] MEDS: traMADol 50 MG Tab PO PRN ×3 (05:36→18:27)
[2016-07-30] MEDS: Nystatin Susp 100,000 Unit/ML 5 ML UD Cup PO SCH ×5 (05:43→21:26)
[2016-07-30] MEDS: 1: AA 5%/Calcium/D15W/Lytes 1,000 ML with MVI, Adult with Vitamin K 10 ML, Chromium/Copp IV SCH ×6 (05:43→17:19)
[2016-07-30] MEDS: Lidocaine 2% 30 ML, Alum Hydrox/Mag Hydrox/Simeth 30 ML, diphenhydrAMINE 75 MG PO SCH ×15 (06:51→21:26)
[2016-07-30] MEDS: Albuterol/Ipratropium 3.0-0.5 MG/3 ML Neb Soln INH SCH ×4 (07:13→21:28)
[2016-07-30] MEDS ORDERED: Central Total Parenteral Nutrition Bag SCH (08:15)
[2016-07-30] MEDS: Fluconazole/Normal Saline 200 MG in Premix Bag 1 BAG IV SCH (10:43)
[2016-07-30] MEDS: Losartan 50 MG Tab PO SCH (10:55)
--- NOTE | 2016-07-30 11:21 | PN ---
DATE OF SERVICE: 07/30/2016 SUBJECTIVE: Srinivas had his gastrostomy tube flushed at 8:00 p.m. Nursing staff left it to independent drainage. He returned to the room at 11:00 p.m. In the gastrostomy tube bag, there was 800 mL of fecal smelling material and then he had another 200 mL out. Srinivas was experiencing no pain. He had a CT scan stat, which was negative. He also had a white count, which increased to 21.2 from 17.3. There have really been no change in the rest of his labs. TPN is running without difficulty. Yesterday, he had a sore mouth from thrush. He is already receiving IV Diflucan, and he did refuse the Magic Mouthwash with lidocaine and the nystatin. Temp max 99.5. Oral intake was 120, decreased because of thrush. ALLIE drains remained serous sanguinous, and they have put out 100, 8, 8, 70, 10, 7, and 130 respectively of a pale serous sanguinous drainage. REVIEW OF SYSTEMS: Remainder of review of systems negative for any pertinent positives and negatives. OBJECTIVE: GENERAL: Srinivas Lofton is a 66-year-old male. He is sitting up in the chair. He looks the best I have seen him since he has been hospitalized. VITAL SIGNS: TPR is 98.8, 74, 16, blood pressure 157/89. HEENT: Negative. NECK: Supple. HEART: Regular rate and rhythm. LUNGS: Clear. ABDOMEN: ALLIE drains are intact and draining as stated above. Gastrostomy tube now is draining a light greenish yellow clear drainage. Abdomen is normally tense, is the expected tenderness after surgery. Abdominal binder on. EXTREMITIES: Without peripheral edema. ASSESSMENT: 1. Increased amount of fecal smelling gastrostomy tube drainage. 2. Diagnostic laparoscopy with lysis of adhesion, repair of recurrent incarcerated umbilical hernia with mesh, removal of previous mesh, placement of Vicryl mesh to displace small bowel and omentum from newly placed mesh to limit recurrent adhesive formation from the pelvic and abdominal wall and associated areas of mesh replacement, recurrent incarcerated hernia, extensive adhesions between the previously placed mesh and omentum on the bowel on 07/16/2016. 3. Exploratory laparotomy with distal resection, total abdominal colectomy, removal of intraperitoneal mesh, insertion of central vein catheter on 07/20/2016. 4. Delayed primary closure on 07/22/2016. PLAN: Dr. Walker was consulted at around 5:[address] scan was completed because the patient was stable. I talked with him at 6:47 a.m. Continue same TPN rate and content. Check CBC, CMP, mag, phos in a.m. We will evaluate p.r.n. or in a.m. Caden Momin MD, will be taking care and medically manage this patient also. Lidia Rao PA-C /[id number]
[2016-07-30] MEDS: cefTRIAXone 2 GM in Sodium Chloride 0.9% 50 ML IV SCH (13:05)
[2016-07-30] MEDS: Docusate Sodium Liquid 100 MG/10 ML UD Cup GTUBE SCH ×2 (13:08→21:24)
[2016-07-30] MEDS: Acetaminophen Soln 650 MG/20.3 ML UD Cup GTUBE PRN ×2 (13:08→21:28)
[2016-07-30] MEDS ORDERED: Benzocaine/Cetylpyridinium/Menthol Lozenge MUCMEM PRN (13:26)
[2016-07-30] MEDS ORDERED: Ciprofloxacin in D5W 400 MG in Premix Bag 1 BAG IV SCH ×2 (14:00)
--- NOTE | 2016-07-30 14:37 | CR ---
Heart size within normal limits. Drain in the left upper quadrant. Hazy density within the right bart g base may indicate atelectasis. Early infiltrate not excluded. There is elevation of the right jerome diaphragm. Left lung is clear.
[2016-07-30] MEDS: Ciprofloxacin in D5W 400 MG in Premix Bag 1 BAG IV SCH ×2 (14:42)
[2016-07-30] MEDS: metroNIDAZOLE/Normal Saline 500 MG in Premix Bag 1 BAG IV SCH ×2 (15:42→22:52)
--- NOTE | 2016-07-30 16:24 | PCM.CONSN ---
- General Info Date of Service: 07/30/16 Functional Status: Reports: pain controlled, tolerating diet, ambulating - Review of Systems General: Denies: Fever HEENT: Reports: other (Sore tongue and odynophagia) Gastrointestinal: Reports: Abdominal pain Neurological: Reports: Confusion Systems Review Comment:: Some difficulty with increasing pain overnight as well as drainage from his G- tube. CT scan did not show evidence for definite pathology such as abscess or obstruction. Doing much better since G-tube has been left to drainage. No fevers. White blood cell count is up slightly today compared to yesterday. Clinically he looks better with less confusion. He does report some blurry vision. - Patient Data Vitals - most recent: Last Vital Signs Temp 36.6 C 07/30/16 15:06 Pulse 72 07/30/16 15:06 Resp 16 07/30/16 15:06 BP 141/67 H 07/30/16 15:06 Pulse Ox 100 07/30/16 15:06 Weight - most recent: 112.037 kg I&O - last 24 hours: Intake & Output 07/30/16 07/30/16 07/30/16 06:59 14:59 22:59 Intake Total 1224 450 100 Output Total 875 1250 50 Balance 349 -800 50 Lab Results last 24 hrs: Laboratory Results - last 24 hr 07/30/16 07/30/16 07/30/16 Range/Units 04:33 04:33 11:00 WBC 21.2 H (4.5-11.0) K/uL RBC 4.18 L (4.30-5.90) M/uL Hgb 11.7 L (12.0-15.0) g/dL Hct 37.7 L (40.0-54.0) % MCV 90 (80-98) fL MCH 28 (27-31) pg MCHC 31 L (32-36) % Plt Count 463 H (150-400) K/uL Sodium 146 (140-148) mmol/L Potassium 4.2 (3.6-5.2) mmol/L Chloride 112 H (100-108) mmol/L Carbon Dioxide 24 (21-32) mmol/L Anion Gap 14.2 H (5.0-14.0) mmol/L BUN 30 H (7-18) mg/dL Creatinine 1.2 (0.8-1.3) mg/dL Est Cr Clr Drug Dosing 64.37 mL/min Estimated GFR (MDRD) > 60 (>60) Glucose 118 H (74-106) mg/dL Calcium 8.0 L (8.5-10.1) mg/dL Total Bilirubin 0.9 (0.2-1.0) mg/dL AST 49 H (15-37) U/L ALT 107 H (12-78) U/L Alkaline Phosphatase 39 L (46-116) U/L Total Protein 6.2 L (6.4-8.2) g/dL Albumin 2.1 L (3.4-5.0) g/dL Globulin 4.1 H (2.3-3.5) g/dL Albumin/Globulin Ratio 0.5 L (1.2-2.2) Urine Color Urine Appearance Urine pH (4.5-8.0) Ur Specific [place] (1.008-1.030) Urine Protein (NEGATIVE) mg/dL Urine Glucose (UA) (NEGATIVE) mg/dL Urine Ketones (NEGATIVE) mg/dL Urine Occult Blood (NEGATIVE) Urine Nitrite (NEGAITVE) Urine Bilirubin (NEGATIVE) Urine Urobilinogen (NORMAL) mg/dL Ur Leukocyte Esterase (NEGATIVE) Urine RBC (0-5) Urine WBC (0-5) Ur Epithelial Cells Amorphous Sediment Urine Bacteria Urine Mucus Vancomycin Trough 23.2 H (10.0-20.0) ug/mL 07/30/16 Range/Units 13:00 WBC (4.5-11.0) K/uL RBC (4.30-5.90) M/uL Hgb (12.0-15.0) g/dL Hct (40.0-54.0) % MCV (80-98) fL MCH (27-31) pg MCHC (32-36) % Plt Count (150-400) K/uL Sodium (140-148) mmol/L Potassium (3.6-5.2) mmol/L Chloride (100-108) mmol/L Carbon Dioxide (21-32) mmol/L Anion Gap (5.0-14.0) mmol/L BUN (7-18) mg/dL Creatinine (0.8-1.3) mg/dL Est Cr Clr Drug Dosing mL/min Estimated GFR (MDRD) (>60) Glucose (74-106) mg/dL Calcium (8.5-10.1) mg/dL Total Bilirubin (0.2-1.0) mg/dL AST (15-37) U/L ALT (12-78) U/L Alkaline Phosphatase (46-116) U/L Total Protein (6.4-8.2) g/dL Albumin (3.4-5.0) g/dL Globulin (2.3-3.5) g/dL Albumin/Globulin Ratio (1.2-2.2) Urine Color Yellow Urine Appearance Slightly cloudy Urine pH 5.0 (4.5-8.0) Ur Specific [place] 1.015 (1.008-1.030) Urine Protein Negative (NEGATIVE) mg/dL Urine Glucose (UA) Normal (NEGATIVE) mg/dL Urine Ketones Negative (NEGATIVE) mg/dL Urine Occult Blood Moderate (NEGATIVE) Urine Nitrite Negative (NEGAITVE) Urine Bilirubin Negative (NEGATIVE) Urine Urobilinogen Normal (NORMAL) mg/dL Ur Leukocyte Esterase Negative (NEGATIVE) Urine RBC 5-10 H (0-5) Urine WBC 0-5 (0-5) Ur Epithelial Cells Few Amorphous Sediment Few Urine Bacteria Few Urine Mucus Few Vancomycin Trough (10.0-20.0) ug/mL [place]y Results last 24 hrs: Microbiology 07/30/16 13:45 Group A Streptococcus Rapid Screen - Final Throat NEGATIVE STREP A SCREEN Med Orders - Current: Current Medications Acetaminophen (Tylenol) 650 mg GTUBE Q4H PRN PRN Reason: Pain (mild 1-3) Last Admin: 07/30/16 13:08 Dose: 650 mg Albuterol/Ipratropium (Duoneb 3.0-0.5 Mg/3 Ml) 3 ml INH QIDRT RUMA Last Admin: 07/30/16 15:01 Dose: 3 ml Albuterol/Ipratropium (Duoneb 3.0-0.5 Mg/3 Ml) 3 ml INH ASDIRECTED PRN PRN Reason: * Last Admin: 07/23/16 23:50 Dose: 3 ml Benzocaine/Menthol (Cepacol Sore Throat) 1 lozenge MUCMEM Q1H PRN PRN Reason: Pain Bisacodyl (Dulcolax) 10 mg RECTAL DAILY PRN PRN Reason: Constipation Lidocaine HCl 30 ml/ Al Hydroxide/Mg Hydroxide 30 ml/Diphenhydramine HCl 75 mg 0 ml PO QID [facility] Last Admin: 07/30/16 15:41 Dose: Not Given Dimethicone/Zinc Oxide (Rash Relief-Zinc Oxide [place]) 0 gm TOP ASDIRECTED PRN PRN Reason: Rash Docusate Sodium (Colace 50 Mg/5 Ml Liquid) 100 mg GTUBE BID [facility] Last Admin: 07/30/16 13:08 Dose: 100 mg Heparin Sodium (Porcine) (Heparin Lock Flush 100 Units/Ml Syringe) 500 units FLUSH ASDIRECTED PRN PRN Reason: IV Use Last Admin: 07/26/16 04:30 Dose: 500 units Fluconazole/Sodium Chloride (200 mg/ Premix) 100 mls @ 100 mls/hr IV Q24H [facility] Last Admin: 07/30/16 10:43 Dose: 100 mls/hr Multivitamins/Minerals 10 ml/Chromium/Copper/Manganese/Seleni/Zn 1 ml/ Amino Ac/ Electrol/Dextrose/Calcium 1,011 mls @ 82 mls/hr IV .BY DURATION [facility] Amino Ac/Electrol/Dextrose/Calcium (Clinimix E 09/27) 1,000 mls @ 82 mls/hr IV .BY DURATION [facility] Vancomycin HCl 1.5 gm/ Sodium (Chloride) 250 mls @ 167 mls/hr IV Q12H [facility] Metronidazole 500 mg/ Premix 100 mls @ 100 mls/hr IV Q8H [facility] Last Admin: 07/30/16 15:42 Dose: 100 mls/hr Ciprofloxacin/Dextrose 400 mg/ (Premix) 200 mls @ 200 mls/hr IV Q12H [facility] Last Admin: 07/30/16 14:42 Dose: 200 mls/hr Lorazepam (Ativan) 0.5 mg PO Q4H PRN PRN Reason: Anxiety Last Admin: 07/27/16 21:55 Dose: 0.5 mg Losartan Potassium (Cozaar) 50 mg PO DAILY [facility] Last Admin: 07/30/16 10:55 Dose: 50 mg Magnesium Hydroxide (Milk Of Magnesia) 30 ml PO Q4H PRN PRN Reason: Constipation Naloxone HCl (Narcan) 0.1 mg IV ASDIRECTED PRN PRN Reason: decreased respiratory rate Nitroglycerin (Nitrostat) 0.4 mg SL Q5M PRN PRN Reason: CHEST PAIN Nystatin (Mycostatin) 5 ml PO QID [facility] Last Admin: 07/30/16 15:42 Dose: Not Given Ondansetron HCl (Zofran) 4 mg IVPUSH Q4H PRN PRN Reason: NAUSEA Pantoprazole Sodium (Protonix) 40 mg PO BEDTIME [facility] Last Admin: 07/29/16 21:51 Dose: 40 mg Tamsulosin HCl (Flomax) 0.4 mg PO BEDTIME [facility] Last Admin: 07/29/16 21:52 Dose: 0.4 mg Tramadol HCl (Ultram) 50 - 100 mg PO Q4H PRN PRN Reason: Pain Last Admin: 07/30/16 13:07 Dose: 100 mg Discontinued Medications Acetaminophen (Tylenol) 650 mg PO Q4H PRN PRN Reason: Fever Last Admin: 07/26/16 19:54 Dose: 650 mg Acetaminophen (Tylenol) 650 mg PO Q4H PRN PRN Reason: Pain (mild 1-3) Last Admin: 07/29/16 00:39 Dose: 650 mg Acetaminophen (Tylenol) 650 mg PO Q4H PRN PRN Reason: Pain (mild 1-3) Albuterol (Proventil Neb Soln) 2.5 mg NEB Q4H PRN PRN Reason: Dyspnea Last Admin: 07/20/16 16:13 Dose: 2.5 mg Bacitracin (Bacitracin Oint) 0 gm TOP TID [facility] Last Admin: 07/20/16 13:58 Dose: 1 applic Bisacodyl (Dulcolax) 10 mg PO BID [facility] Last Admin: 07/20/16 09:22 Dose: 10 mg Bisacodyl (Dulcolax) 10 mg RECTAL BID PRN PRN Reason: Constipation Last Admin: 07/19/16 17:31 Dose: 10 mg Bisacodyl (Dulcolax) 20 mg PO ONETIME ONE Stop: 07/26/16 10:01 Last Admin: 07/26/16 09:09 Dose: 20 mg Bisacodyl (Dulcolax) 10 mg RECTAL BID [facility] Last Admin: 07/26/16 21:21 Dose: 10 mg Bisacodyl (Dulcolax) 20 mg PO ONETIME ONE Stop: 07/29/16 10:01 Last Admin: 07/29/16 12:58 Dose: 20 mg Bupivacaine HCl (Marcaine 0.5%) Confirm Administered Dose 50 ml .ROUTE .STK-MED ONE Stop: 07/22/16 06:41 Last Admin: 07/22/16 07:34 Dose: 20 ml Bupivacaine HCl/Epinephrine Bitart (Marcaine 0.5%/Epinephrine 1:200,000) Confirm Administered Dose 50 ml .ROUTE .K-MED ONE Stop: 07/16/16 06:43 Last Admin: 07/16/16 07:28 Dose: 10 ml Buspirone HCl (Buspar) 15 mg PO DAILY [facility] Last Admin: 07/20/16 09:21 Dose: 15 mg Buspirone HCl (Buspar) 7.5 mg PO QPM [facility] Last Admin: 07/20/16 17:57 Dose: Not Given Buspirone HCl (Buspar) 15 mg PO DAILY [facility] Last Admin: 07/29/16 10:59 Dose: 15 mg Buspirone HCl (Buspar) 7.5 mg PO BEDTIME [facility] Last Admin: 07/28/16 20:52 Dose: 7.5 mg Dexamethasone (Dexamethasone) Confirm Administered Dose 4 mg .ROUTE .STK-MED ONE Stop: 07/16/16 07:27 Dexamethasone (Dexamethasone) Confirm Administered Dose 4 mg .ROUTE .[facility]-MED ONE Stop: 07/20/16 16:44 Diatrizoate Meglum/Diatrizoate Sod (Gastrografin 37%) 1,200 ml .XX . DIRECTED [facility] Stop: 07/20/16 14:16 Last Admin: 07/20/16 15:27 Dose: 1,200 ml Diphenhydramine HCl (Benadryl) 25 mg PO BEDTIME PRN PRN Reason: Sleep Last Admin: 07/29/16 00:39 Dose: 25 mg Diphenhydramine HCl (Benadryl) 25 mg PO BEDTIME PRN PRN Reason: SLEEP Diphenhydramine HCl (Benadryl) 25 mg GTUBE BEDTIME PRN PRN Reason: SLEEP Docusate Sodium (Colace) 100 mg PO BID [facility] Last Admin: 07/28/16 20:52 Dose: 100 mg Fentanyl (Sublimaze) Confirm Administered Dose 500 mcg .ROUTE .STK-MED ONE Stop: 07/16/16 07:27 Fentanyl (Sublimaze) Confirm Administered Dose 250 mcg .ROUTE .STK-MED ONE Stop: 07/16/16 09:21 Fentanyl (Duragesic) 25 mcg TRDERM Q72H [facility] Last Admin: 07/20/16 09:24 Dose: 25 mcg Fentanyl (Sublimaze) Confirm Administered Dose 250 mcg .ROUTE .STK-MED ONE Stop: 07/20/16 16:45 Fentanyl (Sublimaze) Confirm Administered Dose 250 mcg .ROUTE .STK-MED ONE Stop: 07/20/16 18:24 Fentanyl (Duragesic) 25 mcg TRDERM Q72H [facility] Last Admin: 07/20/16 22:18 Dose: Not Given Fentanyl (Duragesic) 25 mcg TRDERM Q72H RUMA Fentanyl (Sublimaze) Confirm Administered Dose 100 mcg .ROUTE .STK-MED ONE Stop: 07/22/16 07:04 Fentanyl (Duragesic) 50 mcg TRDERM Q72H [facility] Last Admin: 07/22/16 09:40 Dose: 50 mcg Furosemide (Lasix) 20 mg IVPUSH Q8H [facility] Last Admin: 07/24/16 15:59 Dose: Not Given Glycopyrrolate () Confirm Administered Dose 1 mg .ROUTE .STK-MED ONE Stop: 07/16/16 07:27 Glycopyrrolate () Confirm Administered Dose 1 mg .ROUTE .STK-MED ONE Stop: 07/20/16 16:44 Haloperidol Lactate (Haldol) 2.5 mg IVPUSH ONETIME ONE Stop: 07/23/16 06:18 Last Admin: 07/23/16 06:26 Dose: 2.5 mg Haloperidol Lactate (Haldol) 2.5 mg IVPUSH Q1H PRN PRN Reason: PSYCHOSIS/ANXIETY Last Admin: 07/23/16 18:10 Dose: 2.5 mg Heparin Sodium (Porcine) (Heparin Lock Flush 100 Units/Ml Syringe) Confirm Administered Dose 500 units .ROUTE .STK-MED ONE Stop: 07/20/16 17:25 Last Admin: 07/20/16 17:28 Dose: 500 units Heparin Sodium (Porcine) (Heparin Sodium) Confirm Administered Dose 5,000 units .ROUTE .STK-MED ONE Stop: 07/20/16 20:54 Last Admin: 07/20/16 21:06 Dose: 5,000 units Hydromorphone HCl (Dilaudid [employer] 15 Mg In Ns 30 Ml) 0 mg IV ASDIRECTED PRN; Protocol PRN Reason: Pain Last Admin: 07/16/16 07:37 Dose: 0.3 mg Hydromorphone HCl (Dilaudid [employer] 15 Mg In Ns 30 Ml) 0 mg IV ASDIRECTED PRN; Protocol PRN Reason: PAIN Last Admin: 07/20/16 07:38 Dose: 15 mg Hydromorphone HCl (Dilaudid [place] Operator 15 Mg In Ns 30 Ml) 0 mg IV ASDIRECTED PRN; Protocol PRN Reason: PAIN Last Admin: 07/21/16 07:19 Dose: 15 mg Hydromorphone HCl (Dilaudid) 0.5 - 1 mg IVPUSH Q2H PRN PRN Reason: Pain (severe 7-10) Last Admin: 07/27/16 00:30 Dose: 1 mg Hydroxyzine HCl (Vistaril) 100 mg IM Q4H PRN PRN Reason: Pain Last Admin: 07/20/16 14:41 Dose: 100 mg Hydroxyzine HCl (Vistaril) 100 mg IM Q4H PRN PRN Reason: PAIN Last Admin: 07/26/16 12:16 Dose: 100 mg Hydroxyzine HCl (Vistaril) 50 mg IM ONETIME ONE Stop: 07/22/16 06:14 Last Admin: 07/22/16 06:29 Dose: 50 mg Clindamycin Phosphate 900 mg/ (Sodium Chloride) 106 mls @ 212 mls/hr IV ONETIME ONE Stop: 07/16/16 07:59 Last Admin: 07/16/16 07:48 Dose: 212 mls/hr Dextrose/Lactated Ringer's (Dextrose 5%-Lactated Ringers) 1,000 mls @ 100 mls/ hr IV ASDIRECTED RUMA Last Admin: 07/16/16 07:37 Dose: 100 mls/hr Lactated Ringer's (Ringers, Lactated) Confirm Administered Dose 1,000 mls @ as directed .ROUTE .STK-MED ONE Stop: 07/16/16 09:17 Dextrose/Lactated Ringer's (Dextrose 5%-Lactated Ringers) 1,000 mls @ 150 mls/ hr IV ASDIRECTED RUMA Last Admin: 07/18/16 04:26 Dose: 150 mls/hr Cefazolin Sodium 2 gm/ Sodium (Chloride) 50 mls @ 100 mls/hr IV Q8H [facility] Stop: 07/17/16 06:29 Last Admin: 07/17/16 05:08 Dose: 100 mls/hr Dextrose/Lactated Ringer's (Dextrose 5%-Lactated Ringers) 1,000 mls @ 100 mls/ hr IV ASDIRECTED [facility] Last Admin: 07/19/16 14:53 Dose: 100 mls/hr Acetaminophen 1,000 mg/ Premix 100 mls @ 400 mls/hr IV Q6H PRN PRN Reason: PAIN Stop: 07/20/16 10:30 Acetaminophen 1,000 mg/ Premix 100 mls @ 400 mls/hr IV NOW ONE Stop: 07/20/16 07:32 Last Admin: 07/20/16 07:31 Dose: 400 mls/hr Lactated Ringer's (Ringers, Lactated) 1,000 mls @ 1,000 mls/hr IV ASDIRECTED [facility] Stop: 07/20/16 09:31 Last Admin: 07/20/16 09:10 Dose: 1,000 mls/hr Levofloxacin/Dextrose 500 mg/ (Premix) 100 mls @ 100 mls/hr IV Q24H [facility] Last Admin: 07/20/16 09:22 Dose: 100 mls/hr Acetaminophen 1,000 mg/ Premix 100 mls @ 400 mls/hr IV Q6H [facility] Last Admin: 07/20/16 22:20 Dose: 400 mls/hr Lactated Ringer's (Ringers, Lactated) 1,000 mls @ 250 mls/hr IV ASDIRECTED [facility] Stop: 07/20/16 14:01 Last Admin: 07/20/16 11:04 Dose: 250 mls/hr Meropenem 1 gm/ Sodium (Chloride) 50 mls @ 100 mls/hr IV Q8H [facility] Last Admin: 07/20/16 11:41 Dose: 100 mls/hr Lactated Ringer's (Ringers, Lactated) 1,000 mls @ 999 mls/hr IV [facility] ONE Stop: 07/20/16 17:19 Last Admin: 07/20/16 21:10 Dose: 999 mls/hr Lactated Ringer's (Ringers, Lactated) Confirm Administered Dose 1,000 mls @ as directed .ROUTE .[facility] ONE Stop: 07/20/16 18:26 Lactated Ringer's (Ringers, Lactated) Confirm Administered Dose 1,000 mls @ as directed .ROUTE .[facility] ONE Stop: 07/20/16 18:27 Dextrose/Lactated Ringer's (Dextrose 5%-Lactated Ringers) 1,000 mls @ 100 mls/ hr IV ASDIRECTED [facility] Stop: 07/23/16 09:59 Last Admin: 07/23/16 00:19 Dose: 100 mls/hr Lactated Ringer's (Ringers, Lactated) 1,000 mls @ 100 mls/hr IV ASDIRECTED [facility] Stop: 07/21/16 17:59 Last Admin: 07/21/16 07:22 Dose: 100 mls/hr Aztreonam 1 gm/ Sodium (Chloride) 50 mls @ 100 mls/hr IV Q8HR [facility] Last Admin: 07/21/16 05:06 Dose: 100 mls/hr Meropenem 500 mg/ Sodium (Chloride) 50 mls @ 100 mls/hr IV Q8H [facility] Last Admin: 07/26/16 05:17 Dose: 100 mls/hr Acetaminophen 1,000 mg/ Premix 100 mls @ 400 mls/hr IV Q6H [facility] Stop: 07/21/16 16:14 Last Admin: 07/21/16 17:12 Dose: 400 mls/hr Aztreonam/Dextrose 1 gm/ (Premix) 50 mls @ 100 mls/hr IV Q8HR [facility] Last Admin: 07/25/16 05:52 Dose: 100 mls/hr Lactated Ringer's (Ringers, Lactated) 1,000 mls @ 40 mls/hr IV ASDIRECTED [facility] Lactated Ringer's (Ringers, Lactated) 1,000 mls @ 40 mls/hr IV ASDIRECTED [facility] Last Admin: 07/23/16 03:55 Dose: 40 mls/hr Albumin Human 12.5 gm/ Premix 50 mls @ 25 mls/hr IV Q24H [facility] Stop: 07/26/16 10:59 Last Admin: 07/26/16 09:09 Dose: 25 mls/hr Albumin Human 12.5 gm/ Premix 50 mls @ 25 mls/hr IV Q24H [facility] Stop: 07/26/16 12:59 Last Admin: 07/26/16 10:44 Dose: 25 mls/hr Albumin Human 12.5 gm/ Premix 50 mls @ 25 mls/hr IV Q24H [facility] Stop: 07/26/16 14:59 Last Admin: 07/26/16 12:45 Dose: 25 mls/hr Albumin Human 12.5 gm/ Premix 50 mls @ 25 mls/hr IV Q24H [facility] Stop: 07/26/16 16:59 Last Admin: 07/26/16 15:09 Dose: 25 mls/hr Multivitamins/Minerals 10 ml/Chromium/Copper/Manganese/Seleni/Zn 1 ml/ Amino Ac/ Electrol/Dextrose/Calcium 1,011 mls @ 82 mls/hr IV .BY DURATION [facility] Last Admin: 07/23/16 10:23 Dose: 82 mls/hr Amino Ac/Electrol/Dextrose/Calcium (Clinimix E 09/27) 1,000 mls @ 82 mls/hr IV .BY DURATION [facility] Last Admin: 07/23/16 22:44 Dose: 82 mls/hr Lactated Ringer's (Ringers, Lactated) 1,000 mls @ 0 mls/hr IV ASDIRECTED [facility] PRN Reason: KVO Last Admin: 07/24/16 19:59 Dose: 25 mls/hr Acetaminophen 1,000 mg/ Premix 100 mls @ 400 mls/hr IV Q6H PRN PRN Reason: Pain Stop: 07/24/16 23:18 Last Admin: 07/24/16 20:14 Dose: 400 mls/hr Potassium Chloride 40 meq/ (Premix) 100 mls @ 25 mls/hr IV ONETIME ONE Stop: 07/24/16 12:29 Last Admin: 07/24/16 08:56 Dose: 25 mls/hr Potassium Chloride 20 meq/ (Premix) 100 mls @ 50 mls/hr IV ONETIME ONE Stop: 07/24/16 14:59 Last Admin: 07/24/16 12:31 Dose: 50 mls/hr Multivitamins/Minerals 10 ml/Chromium/Copper/Manganese/Seleni/Zn 1 ml/ Amino Ac/ Electrol/Dextrose/Calcium 1,011 mls @ 82 mls/hr IV .BY DURATION [facility] Last Admin: 07/25/16 13:40 Dose: 82 mls/hr Amino Ac/Electrol/Dextrose/Calcium (Clinimix E 5/15) 1,000 mls @ 82 mls/hr IV .BY DURATION [facility] Last Admin: 07/26/16 00:18 Dose: 82 mls/hr Lactated Ringer's (Ringers, Lactated) 1,000 mls @ 25 mls/hr IV ASDIRECTED [facility] PRN Reason: KVO Acetaminophen 1,000 mg/ Premix 100 mls @ 400 mls/hr IV Q6H PRN PRN Reason: Pain Stop: 07/26/16 05:10 Last Admin: 07/26/16 03:58 Dose: 400 mls/hr Vancomycin HCl 1.75 gm/ Sodium (Chloride) 250 mls @ 167 mls/hr IV ONETIME ONE Stop: 07/25/16 12:29 Last Admin: 07/25/16 11:35 Dose: 167 mls/hr Vancomycin HCl 1.5 gm/ Sodium (Chloride) 250 mls @ 167 mls/hr IV Q12H [facility] Last Admin: 07/26/16 22:58 Dose: 167 mls/hr Ceftriaxone Sodium 2 gm/ (Sodium Chloride) 50 mls @ 100 mls/hr IV Q24H [facility] Last Admin: 07/30/16 13:05 Dose: 100 mls/hr Multivitamins/Minerals 10 ml/Chromium/Copper/Manganese/Seleni/Zn 1 ml/ Amino Ac/ Electrol/Dextrose/Calcium 1,011 mls @ 82 mls/hr IV .BY DURATION [facility] Stop: 07/30/16 14:56 Last Admin: 07/29/16 17:10 Dose: 82 mls/hr Amino Ac/Electrol/Dextrose/Calcium (Clinimix E 5/15) 1,000 mls @ 82 mls/hr IV .BY DURATION [facility] Stop: 07/30/16 14:56 Last Admin: 07/30/16 05:43 Dose: 82 mls/hr Acetaminophen 1,000 mg/ Premix 100 mls @ 400 mls/hr IV Q6H PRN PRN Reason: Pain Stop: 07/27/16 23:45 Last Admin: 03/14/17 15:33 Dose: 400 mls/hr Vancomycin HCl 1.7 gm/ Sodium (Chloride) 250 mls @ 167 mls/hr IV Q12H [facility] Last Admin: 07/29/16 23:37 Dose: 167 mls/hr Sodium Chloride (Normal Saline) 85 mls @ 3 mls/sec IV ASDIRECTED [facility] Last Admin: 07/30/16 03:03 Dose: 3 mls/sec Iopamidol (Isovue-300 (61%)) 150 ml IV . DIRECTED RUMA Stop: 07/30/16 02:31 Last Admin: 07/30/16 03:03 Dose: 150 ml Ketorolac Tromethamine (Toradol) 60 mg IM ONETIME ONE Stop: 07/19/16 17:04 Last Admin: 07/19/16 17:30 Dose: 60 mg Labetalol HCl (Normodyne) 5 - 10 mg IV Q2H PRN PRN Reason: BP Last Admin: 07/25/16 05:19 Dose: 10 mg Labetalol HCl (Normodyne) Confirm Administered Dose 20 mg .ROUTE .STK-MED ONE Stop: 07/25/16 05:16 Last Admin: 07/25/16 08:49 Dose: Not Given Labetalol HCl (Normodyne) 0 mg IV Q2H PRN PRN Reason: BP Last Admin: 07/26/16 11:21 Dose: 10 mg Lidocaine HCl (Xylocaine 2% Jelly) 10 ml MUCMEM ONETIME ONE Stop: 07/16/16 21:15 Last Admin: 07/16/16 21:41 Dose: 10 ml Lidocaine/Epinephrine (Xylocaine 1% With Epinephrine 1:100,000) Confirm Administered Dose 50 ml .ROUTE .STK-MED ONE Stop: 07/22/16 06:41 Last Admin: 07/22/16 07:34 Dose: 20 ml Lorazepam (Ativan) 0.5 - 1 mg IVPUSH Q4H PRN PRN Reason: Anxiety Lorazepam (Ativan) 0.5 mg IVPUSH Q2H PRN PRN Reason: Anxiety Last Admin: 07/23/16 16:53 Dose: 0.5 mg Losartan Potassium (Cozaar) 50 mg PO DAILY [facility] Last Admin: 07/20/16 09:21 Dose: 50 mg Magnesium Citrate (Citrate Of Magnesia) 296 ml PO ONETIME ONE Stop: 07/18/16 09:01 Last Admin: 07/18/16 10:55 Dose: 296 ml Magnesium Hydroxide (Milk Of Magnesia) 30 ml PO ONETIME ONE Stop: 07/19/16 08:46 Last Admin: 07/19/16 10:27 Dose: 30 ml Magnesium Hydroxide (Milk Of Magnesia) 30 ml PO ONETIME ONE Stop: 07/26/16 09:01 Last Admin: 07/26/16 09:09 Dose: 30 ml Magnesium Hydroxide (Milk Of Magnesia) 30 ml PO ONETIME ONE Stop: 07/29/16 09:01 Last Admin: 07/29/16 11:00 Dose: 30 ml Meperidine HCl (Demerol) 100 mg IM ONETIME ONE Stop: 07/20/16 16:01 Last Admin: 07/20/16 16:05 Dose: 100 mg Meperidine HCl (Demerol) 100 mg IM ONETIME ONE Stop: 07/22/16 06:14 Last Admin: 07/22/16 06:28 Dose: 100 mg Meropenem (Merrem) Confirm Administered Dose 500 mg .ROUTE .STK-MED ONE Stop: 07/16/16 06:43 Last Admin: 07/16/16 09:25 Dose: 500 mg Meropenem (Merrem) Confirm Administered Dose 2,000 mg .ROUTE .STK-MED ONE Stop: 07/20/16 17:25 Last Admin: 07/20/16 17:25 Dose: 2,000 mg Meropenem (Merrem) Confirm Administered Dose 500 mg .ROUTE .STK-MED ONE Stop: 07/22/16 06:41 Last Admin: 07/22/16 07:34 Dose: 500 mg Midazolam HCl (Versed 1 Mg/Ml) Confirm Administered Dose 2 mg .ROUTE .STK-MED ONE Stop: 07/20/16 16:46 Midazolam HCl (Versed 1 Mg/Ml) Confirm Administered Dose 2 mg .ROUTE .STK-MED ONE Stop: 07/22/16 07:04 Morphine Sulfate (Morphine Asphalt Paver Operator 150 Mg In 30 Ml) 150 mg IV ASDIRECTED RUMA PRN Reason: Protocol Last Admin: 07/22/16 06:49 Dose: 150 mg Morphine Sulfate (Morphine Asphalt Paver Operator 150 Mg In 30 Ml) 0 mg IV ASDIRECTED PRN; Protocol PRN Reason: PAIN Last Admin: 07/26/16 03:12 Dose: 150 mg Naloxone HCl (Narcan) 0.1 mg IV ASDIRECTED PRN PRN Reason: decreased respiratory rate Naloxone HCl (Narcan) 0.1 mg IV ASDIRECTED PRN PRN Reason: decreased respiratory rate Naloxone HCl (Narcan) Confirm Administered Dose 0.4 mg .ROUTE .STK-MED ONE Stop: 07/20/16 20:01 Naloxone HCl (Narcan) 0.1 mg IV ASDIRECTED PRN PRN Reason: decreased respiratory rate Neostigmine Methylsulfate (Neostigmine) Confirm Administered Dose 5 mg .ROUTE .STK-MED ONE Stop: 07/16/16 07:27 Neostigmine Methylsulfate (Neostigmine) Confirm Administered Dose 5 mg .ROUTE .STK-MED ONE Stop: 07/20/16 16:44 Nitroglycerin (Nitrostat) 0.4 mg SL Q5M PRN PRN Reason: CHEST PAIN Fentanyl Patch Check 0 each TOP DAILY [facility] Last Admin: 07/20/16 09:27 Dose: 1 each Fentanyl Patch Check 0 each TOP DAILY@2200 [facility] Last Admin: 07/20/16 22:19 Dose: Not Given Verify Fentanyl (Patch) 0 each TOP BID [facility] Last Admin: 07/24/16 23:12 Dose: Not Given Non-Formulary Medication (Total Parenteral Nutrition, Central) 1,000 ml .XX .Continue Order [facility] Stop: 07/27/16 16:00 Non-Formulary Medication (Total Parenteral Nutrition, Central) 1,000 ml .XX .Continue Order [facility] Stop: 07/29/16 23:00 Non-Formulary Medication (Total Parenteral Nutrition, Central) 1,000 ml .XX .Continue Order [facility] Stop: 07/30/16 14:00 Ondansetron HCl (Zofran) Confirm Administered Dose 4 mg .ROUTE .STK-MED ONE Stop: 07/16/16 07:27 Ondansetron HCl (Zofran) 4 mg IVPUSH Q4H PRN PRN Reason: NAUSEA Last Admin: 07/17/16 10:56 Dose: 4 mg Ondansetron HCl (Zofran) Confirm Administered Dose 4 mg .ROUTE .STK-MED ONE Stop: 07/20/16 16:44 Oxycodone HCl (Oxycodone) 5 - 10 mg PO Q4H PRN PRN Reason: Pain Last Admin: 07/28/16 12:27 Dose: 10 mg Oxycodone/Acetaminophen (Percocet 325-5 Mg) 1 - 2 tab PO Q4H PRN PRN Reason: PAIN Last Admin: 07/20/16 03:34 Dose: 2 tab Pantoprazole Sodium (Protonix Iv) 40 mg IV Q24H RUMA Last Admin: 07/25/16 20:56 Dose: 40 mg Polyethylene Glycol (Miralax) 119 gm PO ONETIME ONE Stop: 07/20/16 10:01 Last Admin: 07/20/16 09:35 Dose: 119 gm Propofol (Diprivan 20 Ml) Confirm Administered Dose 200 mg .ROUTE .STK-MED ONE Stop: 07/16/16 07:27 Propofol (Diprivan 20 Ml) Confirm Administered Dose 200 mg .ROUTE .STK-MED ONE Stop: 07/20/16 16:44 Propofol (Diprivan 20 Ml) Confirm Administered Dose 200 mg .ROUTE .STK-MED ONE Stop: 07/22/16 07:04 Rocuronium Thornton (Zemuron) Confirm Administered Dose 50 mg .ROUTE .STK-MED ONE Stop: 07/16/16 07:27 Rocuronium Thornton (Zemuron) Confirm Administered Dose 50 mg .ROUTE .STK-MED ONE Stop: 07/20/16 16:44 Rocuronium Thornton (Zemuron) Confirm Administered Dose 50 mg .ROUTE .STK-MED ONE Stop: 07/20/16 18:24 Sodium Chloride (Saline Flush) 10 ml IV ASDIRECTED PRN PRN Reason: LINE FLUSH Sodium Chloride (Saline Flush) 10 ml FLUSH ONETIME ONE Stop: 07/30/16 02:22 Last Admin: 07/30/16 03:03 Dose: 10 ml Succinylcholine Chloride (Succinylcholine In Ns Pf) Confirm Administered Dose 200 mg .ROUTE .STK-MED ONE Stop: 07/16/16 07:27 Succinylcholine Chloride (Succinylcholine In Ns Pf) Confirm Administered Dose 200 mg .ROUTE .STK-MED ONE Stop: 07/20/16 16:44 Tamsulosin HCl (Flomax) 0.4 mg PO BEDTIME RUMA Last Admin: 07/19/16 21:18 Dose: 0.4 mg Tamsulosin HCl (Flomax) 0.4 mg PO ONETIME ONE Stop: 07/17/16 09:01 Last Admin: 07/17/16 10:18 Dose: 0.4 mg Tamsulosin HCl (Flomax) 0.4 mg PO ONETIME ONE Stop: 07/24/16 08:31 Last Admin: 07/24/16 09:06 Dose: 0.4 mg Vancomycin HCl (Vancomycin) 1 gm IV .PHARMACY TO DOSE RUMA Stop: 07/25/16 12:00 - Exam Quality Assessment: No: supplemental oxygen General: alert, oriented, cooperative, no acute distress Neck: supple Lungs: Normal respiratory effort Cardiovascular: Regular Rate, Regular Rhythm Abdomen: soft, no distension, tenderness Extremities: no edema, no cyanosis Skin: warm, dry Wound/Incisions: healing well Psy/Mental Status: alert, normal affect Consult PN Assessment/Plan Procedures: Procedures ASSAY OF TROPONIN QUANT (08/25/13) CARDIOVASCULAR STRESS TEST (11/07/14) CHEST X-RAY 1 VIEW FRONTAL (08/25/13) COMPLETE CBC W/AUTO DIFF WBC (08/25/13) COMPREHEN METABOLIC PANEL (08/25/13) ELECTROCARDIOGRAM REPORT (08/25/13) ELECTROCARDIOGRAM TRACING (08/25/13) EMERGENCY DEPT VISIT (08/25/13) EMERGENCY DEPT VISIT (08/25/13) HT MUSCLE IMAGE SPECT MULT (11/07/14) INITIAL OBSERVATION CARE (08/25/13) METABOLIC PANEL TOTAL CA (08/25/13) OBSERVATION CARE DISCHARGE (08/25/13) ROUTINE VENIPUNCTURE (08/25/13) THER/PROPH/DIAG INJ IV PUSH (08/25/13) TX/PRO/DX INJ NEW DRUG ADDON (08/25/13) Problem List Initiated/Reviewed/Updated: Yes Plan: ASSESSMENT AND RECOMMENDATIONS Probable wound infection - clinically improving with fluconazole, drainage has been decreasing daily. No evidence for abscess on CT scan last night. -continue fluconazole for 7 days -continue oral oxycodone with as needed hydromorphone -Followup blood and wound cultures SEPSIS SECONDARY TO INTESTINAL PERFORATION - status post delayed primary closure done 07/24, hemodynamically stable. Cultures from surgery are growing enterococcus and Escherichia coli. clinically seems to be getting better from the standpoint. -Postoperative care per surgical team -followup cultures -continue ceftriaxone -continue vancomycin for enterococcal coverage, because of his penicillin allergy -nutritional support with TPN Thrush - still having a fair amount of pain and this has been limiting his oral intake. Doing better with oral cares and oral nystatin. -Continue oral nystatin and Magic mouthwash ACUTE KIDNEY INJURY - likely secondary to hypotension related to sepsis, renal function has improved and has been stable for several days with good urine output. -Continue to monitor urine output and renal function closely STATUS POST ABDOMINAL WALL HERNIA REPAIR - bowels have been moving but appetite is not good. He is on TPN for nutritional support in this could be contributing to his lack of appetite. -continue full liquids -try to wean TPN as able CORONARY ARTERY DISEASE-asymptomatic Caden Momin M.D.
[2016-07-30] MEDS: Tamsulosin 0.4 MG Cap.ER PO SCH (21:24)
[2016-07-30] MEDS: Pantoprazole 40 MG Tab.CR PO SCH (21:26)
[2016-07-31] MEDS: traMADol 50 MG Tab PO PRN ×4 (01:32→21:19)
[2016-07-31] MEDS: Ciprofloxacin in D5W 400 MG in Premix Bag 1 BAG IV SCH ×4 (01:33→13:55)
[2016-07-31] MEDS: Nystatin Susp 100,000 Unit/ML 5 ML UD Cup PO SCH ×5 (04:44→21:09)
[2016-07-31] MEDS: Lidocaine 2% 30 ML, Alum Hydrox/Mag Hydrox/Simeth 30 ML, diphenhydrAMINE 75 MG PO SCH ×15 (04:47→21:12)
[2016-07-31] MEDS: 1: AA 5%/Calcium/D15W/Lytes 1,000 ML with MVI, Adult with Vitamin K 10 ML, Chromium/Copp IV SCH ×6 (06:53→19:11)
[2016-07-31] MEDS: Albuterol/Ipratropium 3.0-0.5 MG/3 ML Neb Soln INH SCH ×4 (07:23→21:15)
[2016-07-31] MEDS: metroNIDAZOLE/Normal Saline 500 MG in Premix Bag 1 BAG IV SCH ×3 (08:04→23:09)
[2016-07-31] MEDS: Losartan 50 MG Tab PO SCH (08:05)
[2016-07-31] MEDS: Docusate Sodium Liquid 100 MG/10 ML UD Cup GTUBE SCH ×2 (08:06→21:13)
[2016-07-31] MEDS: Acetaminophen Soln 650 MG/20.3 ML UD Cup GTUBE PRN (08:08)
[2016-07-31] MEDS: LORazepam 0.5 MG Tab PO PRN ×2 (08:11→21:16)
[2016-07-31] MEDS ORDERED: Central Total Parenteral Nutrition Bag SCH (09:00)
[2016-07-31] MEDS: Fluconazole/Normal Saline 200 MG in Premix Bag 1 BAG IV SCH (09:39)
--- NOTE | 2016-07-31 10:50 | PN ---
DATE OF SERVICE: 07/31/2016 SUBJECTIVE: Srinivas is having bowel movements without difficulty. His gastrostomy tube has been clamped. He has had no problems. He is less confused. He is taking the nystatin, which is helping his mouth pain. He is also taking tramadol, which is helping with his pain. His antibiotics were changed to Cipro and Flagyl. He has been afebrile, and white count did show 13.6. He was down from 21.2. Hemoglobin this morning is 11.9, which is stable. Magnesium was 1.7. Srinivas states he is feeling better. He has been up ambulating. His biggest complaint right now is the thrush, having a sore mouth. OBJECTIVE: GENERAL: Srinivas Lofton is a 66-year-old male. He is lying in bed. He appears to be feeling better. He is more talkative. VITAL SIGNS: TPR is 98.3, 80, 16, blood pressure 155/80. HEENT: Negative. NECK: Supple. HEART: Regular rate and rhythm. LUNGS: Clear. ABDOMEN: Three ALLIE drains were removed on the right, J-1, J-2, and J-3. His incision is reddened around the staple, but it was merged previously, and it is less red. The other ALLIE drains on the left have #4 of 26 mL. ALLIE-6 is 4, and ALLIE-5 has drained 80, and the colors on 5 has been serosanguineous, 6 serosanguineous, and ALLIE drain 7 is cloudy. Remainder of exam of abdomen is difficult to palpate due to increased fear of it hurting. The abdominal binder has been on. EXTREMITIES: Without peripheral edema. ASSESSMENT: No change. PLAN: 1. Check C. difficile. 2. Probiotics 2 b.i.d. 3. Continue TPN, same rate and content. 4. Labs CBC, CMP, mag, and phos. 5. Magnesium 2 g IV q.6 hours and potassium q.6 hours. 6. We will evaluate p.r.n. or in a.m. Lidia Rao PA-C /[id number]
[2016-07-31] MEDS: Magnesium Sulfate/Water 2 GM in Premix Bag 1 BAG IV SCH ×3 (11:01→21:15)
--- NOTE | 2016-07-31 13:49 | PCM.PN ---
- General Info Date of Service: 07/31/16 Functional Status: Reports: pain controlled, ambulating - Review of Systems General: Reports: Weakness. Denies: Fever HEENT: Reports: other (Odynophagia) Gastrointestinal: Reports: Abdominal pain Systems Review Comment:: No acute events overnight. Moderately severe pain with tragal removal this morning but is feeling better now. Discomfort on his tongue and mouth has been improving since yesterday. Confusion seems better today. Blurry vision has been improving but has not resolved. No fevers overnight. Tolerated change in antibiotics. He has been up and walking around. - Patient Data Vitals - most recent: Last Vital Signs Temp 36.6 C 07/31/16 10:53 Pulse 81 07/31/16 10:53 Resp 16 07/31/16 10:53 BP 148/82 H 07/31/16 10:53 Pulse Ox 96 07/31/16 10:53 Weight - most recent: 112.037 kg I&O - last 24 hours: Intake & Output 07/30/16 07/31/16 07/31/16 22:59 06:59 14:59 Intake Total 1781 1265 590 Output Total 450 980 920 Balance 1331 285 -330 Lab Results last 24 hrs: Laboratory Results - last 24 hr 07/31/16 07/31/16 Range/Units 04:32 04:32 WBC 13.6 H (4.5-11.0) K/uL RBC 4.13 L (4.30-5.90) M/uL Hgb 11.9 L (12.0-15.0) g/dL Hct 37.4 L (40.0-54.0) % MCV 91 (80-98) fL MCH 29 (27-31) pg MCHC 32 (32-36) % Plt Count 474 H (150-400) K/uL Sodium 145 (140-148) mmol/L Potassium 3.9 (3.6-5.2) mmol/L Chloride 112 H (100-108) mmol/L Carbon Dioxide 24 (21-32) mmol/L Anion Gap 12.9 (5.0-14.0) mmol/L BUN 26 H (7-18) mg/dL Creatinine 1.1 (0.8-1.3) mg/dL Est Cr Clr Drug Dosing 70.22 mL/min Estimated GFR (MDRD) > 60 (>60) Glucose 93 (74-106) mg/dL Calcium 7.8 L (8.5-10.1) mg/dL Phosphorus 4.2 (2.5-4.9) mg/dL Magnesium 1.7 L (1.8-2.4) mg/dL Total Bilirubin 0.7 (0.2-1.0) mg/dL AST 53 H (15-37) U/L ALT 127 H (12-78) U/L Alkaline Phosphatase 43 L (46-116) U/L Total Protein 6.5 (6.4-8.2) g/dL Albumin 2.2 L (3.4-5.0) g/dL Globulin 4.3 H (2.3-3.5) g/dL Albumin/Globulin Ratio 0.5 L (1.2-2.2) Boby Results last 24 hrs: Microbiology 07/31/16 10:07 Clostridium difficile (PCR) - Final Stool / Feces NEGATIVE CDIFF TOXIN 07/30/16 13:45 Group A Streptococcus Rapid Screen - Final Throat NEGATIVE STREP A SCREEN Med Orders - Current: Current Medications Acetaminophen (Tylenol) 650 mg GTUBE Q4H PRN PRN Reason: Pain (mild 1-3) Last Admin: 07/31/16 08:08 Dose: 650 mg Albuterol/Ipratropium (Duoneb 3.0-0.5 Mg/3 Ml) 3 ml INH QIDRT RUMA Last Admin: 07/31/16 10:40 Dose: 3 ml Albuterol/Ipratropium (Duoneb 3.0-0.5 Mg/3 Ml) 3 ml INH ASDIRECTED PRN PRN Reason: * Last Admin: 07/23/16 23:50 Dose: 3 ml Benzocaine/Menthol (Cepacol Sore Throat) 1 lozenge MUCMEM Q1H PRN PRN Reason: Pain Bisacodyl (Dulcolax) 10 mg RECTAL DAILY PRN PRN Reason: Constipation Lidocaine HCl 30 ml/ Al Hydroxide/Mg Hydroxide 30 ml/Diphenhydramine HCl 75 mg 0 ml PO QID RUMA Last Admin: 07/31/16 09:43 Dose: Not Given Dimethicone/Zinc Oxide (Rash Relief-Zinc Oxide [place]) 0 gm TOP ASDIRECTED PRN PRN Reason: Rash Docusate Sodium (Colace 50 Mg/5 Ml Liquid) 100 mg GTUBE BID [facility] Last Admin: 07/31/16 08:06 Dose: 100 mg Heparin Sodium (Porcine) (Heparin Lock Flush 100 Units/Ml Syringe) 500 units FLUSH ASDIRECTED PRN PRN Reason: IV Use Last Admin: 07/26/16 04:30 Dose: 500 units Fluconazole/Sodium Chloride (200 mg/ Premix) 100 mls @ 100 mls/hr IV Q24H [facility] Last Admin: 07/31/16 09:39 Dose: 100 mls/hr Multivitamins/Minerals 10 ml/Chromium/Copper/Manganese/Seleni/Zn 1 ml/ Amino Ac/ Electrol/Dextrose/Calcium 1,011 mls @ 82 mls/hr IV .BY DURATION [facility] Last Admin: 07/30/16 17:19 Dose: 82 mls/hr Amino Ac/Electrol/Dextrose/Calcium (Clinimix E 5/15) 1,000 mls @ 82 mls/hr IV .BY DURATION [facility] Last Admin: 07/31/16 06:53 Dose: 82 mls/hr Vancomycin HCl 1.5 gm/ Sodium (Chloride) 250 mls @ 167 mls/hr IV Q12H [facility] Last Admin: 07/31/16 03:56 Dose: 167 mls/hr Metronidazole 500 mg/ Premix 100 mls @ 100 mls/hr IV Q8H [facility] Last Admin: 07/31/16 08:04 Dose: 100 mls/hr Ciprofloxacin/Dextrose 400 mg/ (Premix) 200 mls @ 200 mls/hr IV Q12H [facility] Last Admin: 07/31/16 01:33 Dose: 200 mls/hr Magnesium Sulfate 2 gm/ Premix 50 mls @ 25 mls/hr IV Q6HR [facility] Stop: 08/03/16 05:59 Last Admin: 07/31/16 11:01 Dose: 25 mls/hr Lorazepam (Ativan) 0.5 mg PO Q4H PRN PRN Reason: Anxiety Last Admin: 07/31/16 08:11 Dose: 0.5 mg Losartan Potassium (Cozaar) 50 mg PO DAILY [facility] Last Admin: 07/31/16 08:05 Dose: 50 mg Magnesium Hydroxide (Milk Of Magnesia) 30 ml PO Q4H PRN PRN Reason: Constipation Naloxone HCl (Narcan) 0.1 mg IV ASDIRECTED PRN PRN Reason: decreased respiratory rate Nitroglycerin (Nitrostat) 0.4 mg SL Q5M PRN PRN Reason: CHEST PAIN Non-Formulary Medication (Total Parenteral Nutrition, Central) 1,000 ml .XX .Continue Order [facility] Stop: 07/31/16 14:00 Nystatin (Mycostatin) 5 ml PO QID [facility] Last Admin: 07/31/16 09:40 Dose: 5 ml Ondansetron HCl (Zofran) 4 mg IVPUSH Q4H PRN PRN Reason: NAUSEA Pantoprazole Sodium (Protonix) 40 mg PO BEDTIME [facility] Last Admin: 07/30/16 21:26 Dose: 40 mg Tamsulosin HCl (Flomax) 0.4 mg PO BEDTIME [facility] Last Admin: 07/30/16 21:24 Dose: 0.4 mg Tramadol HCl (Ultram) 50 - 100 mg PO Q4H PRN PRN Reason: Pain Last Admin: 07/31/16 05:40 Dose: 100 mg Discontinued Medications Acetaminophen (Tylenol) 650 mg PO Q4H PRN PRN Reason: Fever Last Admin: 07/26/16 19:54 Dose: 650 mg Acetaminophen (Tylenol) 650 mg PO Q4H PRN PRN Reason: Pain (mild 1-3) Last Admin: 07/29/16 00:39 Dose: 650 mg Acetaminophen (Tylenol) 650 mg PO Q4H PRN PRN Reason: Pain (mild 1-3) Albuterol (Proventil Neb Soln) 2.5 mg NEB Q4H PRN PRN Reason: Dyspnea Last Admin: 07/20/16 16:13 Dose: 2.5 mg Bacitracin (Bacitracin Oint) 0 gm TOP TID [facility] Last Admin: 07/20/16 13:58 Dose: 1 applic Bisacodyl (Dulcolax) 10 mg PO BID [facility] Last Admin: 07/20/16 09:22 Dose: 10 mg Bisacodyl (Dulcolax) 10 mg RECTAL BID PRN PRN Reason: Constipation Last Admin: 07/19/16 17:31 Dose: 10 mg Bisacodyl (Dulcolax) 20 mg PO ONETIME ONE Stop: 07/26/16 10:01 Last Admin: 07/26/16 09:09 Dose: 20 mg Bisacodyl (Dulcolax) 10 mg RECTAL BID [facility] Last Admin: 07/26/16 21:21 Dose: 10 mg Bisacodyl (Dulcolax) 20 mg PO ONETIME ONE Stop: 07/29/16 10:01 Last Admin: 07/29/16 12:58 Dose: 20 mg Bupivacaine HCl (Marcaine 0.5%) Confirm Administered Dose 50 ml .ROUTE .[facility] [place] ONE Stop: 07/22/16 06:41 Last Admin: 07/22/16 07:34 Dose: 20 ml Bupivacaine HCl/Epinephrine Bitart (Marcaine 0.5%/Epinephrine 1:200,000) Confirm Administered Dose 50 ml .ROUTE .[facility] ONE Stop: 07/16/16 06:43 Last Admin: 07/16/16 07:28 Dose: 10 ml Buspirone HCl (Buspar) 15 mg PO DAILY [facility] Last Admin: 07/20/16 09:21 Dose: 15 mg Buspirone HCl (Buspar) 7.5 mg PO QPM [facility] Last Admin: 07/20/16 17:57 Dose: Not Given Buspirone HCl (Buspar) 15 mg PO DAILY [facility] Last Admin: 07/29/16 10:59 Dose: 15 mg Buspirone HCl (Buspar) 7.5 mg PO BEDTIME [facility] Last Admin: 07/28/16 20:52 Dose: 7.5 mg Dexamethasone (Dexamethasone) Confirm Administered Dose 4 mg .ROUTE .[facility] [place] ONE Stop: 07/16/16 07:27 Dexamethasone (Dexamethasone) Confirm Administered Dose 4 mg .ROUTE .[facility] ONE Stop: 07/20/16 16:44 Diatrizoate Meglum/Diatrizoate Sod (Gastrografin 37%) 1,200 ml .XX . DIRECTED [facility] Stop: 07/20/16 14:16 Last Admin: 07/20/16 15:27 Dose: 1,200 ml Diphenhydramine HCl (Benadryl) 25 mg PO BEDTIME PRN PRN Reason: Sleep Last Admin: 07/29/16 00:39 Dose: 25 mg Diphenhydramine HCl (Benadryl) 25 mg PO BEDTIME PRN PRN Reason: SLEEP Diphenhydramine HCl (Benadryl) 25 mg GTUBE BEDTIME PRN PRN Reason: SLEEP Docusate Sodium (Colace) 100 mg PO BID [facility] Last Admin: 07/28/16 20:52 Dose: 100 mg Fentanyl (Sublimaze) Confirm Administered Dose 500 mcg .ROUTE .STK-MED ONE Stop: 07/16/16 07:27 Fentanyl (Sublimaze) Confirm Administered Dose 250 mcg .ROUTE .STK-MED ONE Stop: 07/16/16 09:21 Fentanyl (Duragesic) 25 mcg TRDERM Q72H [facility] Last Admin: 07/20/16 09:24 Dose: 25 mcg Fentanyl (Sublimaze) Confirm Administered Dose 250 mcg .ROUTE .STK-MED ONE Stop: 07/20/16 16:45 Fentanyl (Sublimaze) Confirm Administered Dose 250 mcg .ROUTE .STK-MED ONE Stop: 07/20/16 18:24 Fentanyl (Duragesic) 25 mcg TRDERM Q72H [facility] Last Admin: 07/20/16 22:18 Dose: Not Given Fentanyl (Duragesic) 25 mcg TRDERM Q72H [facility] Fentanyl (Sublimaze) Confirm Administered Dose 100 mcg .ROUTE .STK-MED ONE Stop: 07/22/16 07:04 Fentanyl (Duragesic) 50 mcg TRDERM Q72H [facility] Last Admin: 07/22/16 09:40 Dose: 50 mcg Furosemide (Lasix) 20 mg IVPUSH Q8H [facility] Last Admin: 07/24/16 15:59 Dose: Not Given Glycopyrrolate () Confirm Administered Dose 1 mg .ROUTE .STK-MED ONE Stop: 07/16/16 07:27 Glycopyrrolate () Confirm Administered Dose 1 mg .ROUTE .STK-MED ONE Stop: 07/20/16 16:44 Haloperidol Lactate (Haldol) 2.5 mg IVPUSH ONETIME ONE Stop: 07/23/16 06:18 Last Admin: 07/23/16 06:26 Dose: 2.5 mg Haloperidol Lactate (Haldol) 2.5 mg IVPUSH Q1H PRN PRN Reason: PSYCHOSIS/ANXIETY Last Admin: 07/23/16 18:10 Dose: 2.5 mg Heparin Sodium (Porcine) (Heparin Lock Flush 100 Units/Ml Syringe) Confirm Administered Dose 500 units .ROUTE .STK-MED ONE Stop: 07/20/16 17:25 Last Admin: 07/20/16 17:28 Dose: 500 units Heparin Sodium (Porcine) (Heparin Sodium) Confirm Administered Dose 5,000 units .ROUTE .STK-MED ONE Stop: 07/20/16 20:54 Last Admin: 07/20/16 21:06 Dose: 5,000 units Hydromorphone HCl (Dilaudid Shelter Advocate 15 Mg In Ns 30 Ml) 0 mg IV ASDIRECTED PRN; Protocol PRN Reason: Pain Last Admin: 07/16/16 07:37 Dose: 0.3 mg Hydromorphone HCl (Dilaudid Shelter Advocate 15 Mg In Ns 30 Ml) 0 mg IV ASDIRECTED PRN; Protocol PRN Reason: PAIN Last Admin: 07/20/16 07:38 Dose: 15 mg Hydromorphone HCl (Dilaudid Shelter Advocate 15 Mg In Ns 30 Ml) 0 mg IV ASDIRECTED PRN; Protocol PRN Reason: PAIN Last Admin: 07/21/16 07:19 Dose: 15 mg Hydromorphone HCl (Dilaudid) 0.5 - 1 mg IVPUSH Q2H PRN PRN Reason: Pain (severe 7-10) Last Admin: 07/27/16 00:30 Dose: 1 mg Hydroxyzine HCl (Vistaril) 100 mg IM Q4H PRN PRN Reason: Pain Last Admin: 07/20/16 14:41 Dose: 100 mg Hydroxyzine HCl (Vistaril) 100 mg IM Q4H PRN PRN Reason: PAIN Last Admin: 07/26/16 12:16 Dose: 100 mg Hydroxyzine HCl (Vistaril) 50 mg IM ONETIME ONE Stop: 07/22/16 06:14 Last Admin: 07/22/16 06:29 Dose: 50 mg Clindamycin Phosphate 900 mg/ (Sodium Chloride) 106 mls @ 212 mls/hr IV ONETIME ONE Stop: 07/16/16 07:59 Last Admin: 07/16/16 07:48 Dose: 212 mls/hr Dextrose/Lactated Ringer's (Dextrose 5%-Lactated Ringers) 1,000 mls @ 100 mls/ hr IV ASDIRECTED RUMA Last Admin: 07/16/16 07:37 Dose: 100 mls/hr Lactated Ringer's (Ringers, Lactated) Confirm Administered Dose 1,000 mls @ as directed .ROUTE .STK-MED ONE Stop: 07/16/16 09:17 Dextrose/Lactated Ringer's (Dextrose 5%-Lactated Ringers) 1,000 mls @ 150 mls/ hr IV ASDIRECTED [facility] Last Admin: 07/18/16 04:26 Dose: 150 mls/hr Cefazolin Sodium 2 gm/ Sodium (Chloride) 50 mls @ 100 mls/hr IV Q8H [facility] Stop: 07/17/16 06:29 Last Admin: 07/17/16 05:08 Dose: 100 mls/hr Dextrose/Lactated Ringer's (Dextrose 5%-Lactated Ringers) 1,000 mls @ 100 mls/ hr IV ASDIRECTED [facility] Last Admin: 07/19/16 14:53 Dose: 100 mls/hr Acetaminophen 1,000 mg/ Premix 100 mls @ 400 mls/hr IV Q6H PRN PRN Reason: PAIN Stop: 07/20/16 10:30 Acetaminophen 1,000 mg/ Premix 100 mls @ 400 mls/hr IV NOW ONE Stop: 07/20/16 07:32 Last Admin: 07/20/16 07:31 Dose: 400 mls/hr Lactated Ringer's (Ringers, Lactated) 1,000 mls @ 1,000 mls/hr IV ASDIRECTED [facility] Stop: 07/20/16 09:31 Last Admin: 07/20/16 09:10 Dose: 1,000 mls/hr Levofloxacin/Dextrose 500 mg/ (Premix) 100 mls @ 100 mls/hr IV Q24H [facility] Last Admin: 07/20/16 09:22 Dose: 100 mls/hr Acetaminophen 1,000 mg/ Premix 100 mls @ 400 mls/hr IV Q6H [facility] Last Admin: 07/20/16 22:20 Dose: 400 mls/hr Lactated Ringer's (Ringers, Lactated) 1,000 mls @ 250 mls/hr IV ASDIRECTED [facility] Stop: 07/20/16 14:01 Last Admin: 07/20/16 11:04 Dose: 250 mls/hr Meropenem 1 gm/ Sodium (Chloride) 50 mls @ 100 mls/hr IV Q8H [facility] Last Admin: 07/20/16 11:41 Dose: 100 mls/hr Lactated Ringer's (Ringers, Lactated) 1,000 mls @ 999 mls/hr IV BOLUS ONE Stop: 07/20/16 17:19 Last Admin: 07/20/16 21:10 Dose: 999 mls/hr Lactated Ringer's (Ringers, Lactated) Confirm Administered Dose 1,000 mls @ as directed .ROUTE .STK-MED ONE Stop: 07/20/16 18:26 Lactated Ringer's (Ringers, Lactated) Confirm Administered Dose 1,000 mls @ as directed .ROUTE .[facility] ONE Stop: 07/20/16 18:27 Dextrose/Lactated Ringer's (Dextrose 5%-Lactated Ringers) 1,000 mls @ 100 mls/ hr IV ASDIRECTED [facility] Stop: 07/23/16 09:59 Last Admin: 07/23/16 00:19 Dose: 100 mls/hr Lactated Ringer's (Ringers, Lactated) 1,000 mls @ 100 mls/hr IV ASDIRECTED [facility] Stop: 07/21/16 17:59 Last Admin: 07/21/16 07:22 Dose: 100 mls/hr Aztreonam 1 gm/ Sodium (Chloride) 50 mls @ 100 mls/hr IV Q8HR [facility] Last Admin: 07/21/16 05:06 Dose: 100 mls/hr Meropenem 500 mg/ Sodium (Chloride) 50 mls @ 100 mls/hr IV Q8H [facility] Last Admin: 07/26/16 05:17 Dose: 100 mls/hr Acetaminophen 1,000 mg/ Premix 100 mls @ 400 mls/hr IV Q6H [facility] Stop: 07/21/16 16:14 Last Admin: 07/21/16 17:12 Dose: 400 mls/hr Aztreonam/Dextrose 1 gm/ (Premix) 50 mls @ 100 mls/hr IV Q8HR [facility] Last Admin: 07/25/16 05:52 Dose: 100 mls/hr Lactated Ringer's (Ringers, Lactated) 1,000 mls @ 40 mls/hr IV ASDIRECTED [facility] Lactated Ringer's (Ringers, Lactated) 1,000 mls @ 40 mls/hr IV ASDIRECTED [facility] Last Admin: 07/23/16 03:55 Dose: 40 mls/hr Albumin Human 12.5 gm/ Premix 50 mls @ 25 mls/hr IV Q24H [facility] Stop: 07/26/16 10:59 Last Admin: 07/26/16 09:09 Dose: 25 mls/hr Albumin Human 12.5 gm/ Premix 50 mls @ 25 mls/hr IV Q24H [facility] Stop: 07/26/16 12:59 Last Admin: 07/26/16 10:44 Dose: 25 mls/hr Albumin Human 12.5 gm/ Premix 50 mls @ 25 mls/hr IV Q24H [facility] Stop: 07/26/16 14:59 Last Admin: 07/26/16 12:45 Dose: 25 mls/hr Albumin Human 12.5 gm/ Premix 50 mls @ 25 mls/hr IV Q24H [facility] Stop: 07/26/16 16:59 Last Admin: 07/26/16 15:09 Dose: 25 mls/hr Multivitamins/Minerals 10 ml/Chromium/Copper/Manganese/Seleni/Zn 1 ml/ Amino Ac/ Electrol/Dextrose/Calcium 1,011 mls @ 82 mls/hr IV .BY DURATION [facility] Last Admin: 07/23/16 10:23 Dose: 82 mls/hr Amino Ac/Electrol/Dextrose/Calcium (Clinimix E 09/27) 1,000 mls @ 82 mls/hr IV .BY DURATION [facility] Last Admin: 07/23/16 22:44 Dose: 82 mls/hr Lactated Ringer's (Ringers, Lactated) 1,000 mls @ 0 mls/hr IV ASDIRECTED [facility] PRN Reason: KVO Last Admin: 07/24/16 19:59 Dose: 25 mls/hr Acetaminophen 1,000 mg/ Premix 100 mls @ 400 mls/hr IV Q6H PRN PRN Reason: Pain Stop: 07/24/16 23:18 Last Admin: 07/24/16 20:14 Dose: 400 mls/hr Potassium Chloride 40 meq/ (Premix) 100 mls @ 25 mls/hr IV ONETIME ONE Stop: 07/24/16 12:29 Last Admin: 07/24/16 08:56 Dose: 25 mls/hr Potassium Chloride 20 meq/ (Premix) 100 mls @ 50 mls/hr IV ONETIME ONE Stop: 07/24/16 14:59 Last Admin: 07/24/16 12:31 Dose: 50 mls/hr Multivitamins/Minerals 10 ml/Chromium/Copper/Manganese/Seleni/Zn 1 ml/ Amino Ac/ Electrol/Dextrose/Calcium 1,011 mls @ 82 mls/hr IV .BY DURATION [facility] Last Admin: 07/25/16 13:40 Dose: 82 mls/hr Amino Ac/Electrol/Dextrose/Calcium (Clinimix E 5/15) 1,000 mls @ 82 mls/hr IV .BY DURATION [facility] Last Admin: 07/26/16 00:18 Dose: 82 mls/hr Lactated Ringer's (Ringers, Lactated) 1,000 mls @ 25 mls/hr IV ASDIRECTED [facility] PRN Reason: KVO Acetaminophen 1,000 mg/ Premix 100 mls @ 400 mls/hr IV Q6H PRN PRN Reason: Pain Stop: 07/26/16 05:10 Last Admin: 07/26/16 03:58 Dose: 400 mls/hr Vancomycin HCl 1.75 gm/ Sodium (Chloride) 250 mls @ 167 mls/hr IV ONETIME ONE Stop: 07/25/16 12:29 Last Admin: 07/25/16 11:35 Dose: 167 mls/hr Vancomycin HCl 1.5 gm/ Sodium (Chloride) 250 mls @ 167 mls/hr IV Q12H [facility] Last Admin: 07/26/16 22:58 Dose: 167 mls/hr Ceftriaxone Sodium 2 gm/ (Sodium Chloride) 50 mls @ 100 mls/hr IV Q24H [facility] Last Admin: 07/30/16 13:05 Dose: 100 mls/hr Multivitamins/Minerals 10 ml/Chromium/Copper/Manganese/Seleni/Zn 1 ml/ Amino Ac/ Electrol/Dextrose/Calcium 1,011 mls @ 82 mls/hr IV .BY DURATION [facility] Stop: 07/30/16 14:56 Last Admin: 07/29/16 17:10 Dose: 82 mls/hr Amino Ac/Electrol/Dextrose/Calcium (Clinimix E 5/15) 1,000 mls @ 82 mls/hr IV .BY DURATION [facility] Stop: 07/30/16 14:56 Last Admin: 07/30/16 05:43 Dose: 82 mls/hr Acetaminophen 1,000 mg/ Premix 100 mls @ 400 mls/hr IV Q6H PRN PRN Reason: Pain Stop: 07/27/16 23:45 Last Admin: 07/27/16 15:33 Dose: 400 mls/hr Vancomycin HCl 1.7 gm/ Sodium (Chloride) 250 mls @ 167 mls/hr IV Q12H [facility] Last Admin: 07/29/16 23:37 Dose: 167 mls/hr Sodium Chloride (Normal Saline) 85 mls @ 3 mls/sec IV ASDIRECTED [facility] Last Admin: 07/30/16 03:03 Dose: 3 mls/sec Iopamidol (Isovue-300 (61%)) 150 ml IV . DIRECTED [facility] Stop: 07/30/16 02:31 Last Admin: 07/30/16 03:03 Dose: 150 ml Ketorolac Tromethamine (Toradol) 60 mg IM ONETIME ONE Stop: 07/19/16 17:04 Last Admin: 07/19/16 17:30 Dose: 60 mg Labetalol HCl (Normodyne) 5 - 10 mg IV Q2H PRN PRN Reason: BP Last Admin: 07/25/16 05:19 Dose: 10 mg Labetalol HCl (Normodyne) Confirm Administered Dose 20 mg .ROUTE .STK-MED ONE Stop: 07/25/16 05:16 Last Admin: 07/25/16 08:49 Dose: Not Given Labetalol HCl (Normodyne) 0 mg IV Q2H PRN PRN Reason: BP Last Admin: 07/26/16 11:21 Dose: 10 mg Lidocaine HCl (Xylocaine 2% Jelly) 10 ml MUCMEM ONETIME ONE Stop: 07/16/16 21:15 Last Admin: 07/16/16 21:41 Dose: 10 ml Lidocaine/Epinephrine (Xylocaine 1% With Epinephrine 1:100,000) Confirm Administered Dose 50 ml .ROUTE .STK-MED ONE Stop: 07/22/16 06:41 Last Admin: 07/22/16 07:34 Dose: 20 ml Lorazepam (Ativan) 0.5 - 1 mg IVPUSH Q4H PRN PRN Reason: Anxiety Lorazepam (Ativan) 0.5 mg IVPUSH Q2H PRN PRN Reason: Anxiety Last Admin: 07/23/16 16:53 Dose: 0.5 mg Losartan Potassium (Cozaar) 50 mg PO DAILY [facility] Last Admin: 07/20/16 09:21 Dose: 50 mg Magnesium Citrate (Citrate Of Magnesia) 296 ml PO ONETIME ONE Stop: 07/18/16 09:01 Last Admin: 07/18/16 10:55 Dose: 296 ml Magnesium Hydroxide (Milk Of Magnesia) 30 ml PO ONETIME ONE Stop: 07/19/16 08:46 Last Admin: 07/19/16 10:27 Dose: 30 ml Magnesium Hydroxide (Milk Of Magnesia) 30 ml PO ONETIME ONE Stop: 07/26/16 09:01 Last Admin: 07/26/16 09:09 Dose: 30 ml Magnesium Hydroxide (Milk Of Magnesia) 30 ml PO ONETIME ONE Stop: 07/29/16 09:01 Last Admin: 07/29/16 11:00 Dose: 30 ml Meperidine HCl (Demerol) 100 mg IM ONETIME ONE Stop: 07/20/16 16:01 Last Admin: 07/20/16 16:05 Dose: 100 mg Meperidine HCl (Demerol) 100 mg IM ONETIME ONE Stop: 07/22/16 06:14 Last Admin: 07/22/16 06:28 Dose: 100 mg Meropenem (Merrem) Confirm Administered Dose 500 mg .ROUTE .STK-MED ONE Stop: 07/16/16 06:43 Last Admin: 07/16/16 09:25 Dose: 500 mg Meropenem (Merrem) Confirm Administered Dose 2,000 mg .ROUTE .STK-MED ONE Stop: 07/20/16 17:25 Last Admin: 07/20/16 17:25 Dose: 2,000 mg Meropenem (Merrem) Confirm Administered Dose 500 mg .ROUTE .STK-MED ONE Stop: 07/22/16 06:41 Last Admin: 07/22/16 07:34 Dose: 500 mg Midazolam HCl (Versed 1 Mg/Ml) Confirm Administered Dose 2 mg .ROUTE .STK-MED ONE Stop: 07/20/16 16:46 Midazolam HCl (Versed 1 Mg/Ml) Confirm Administered Dose 2 mg .ROUTE .STK-MED ONE Stop: 07/22/16 07:04 Morphine Sulfate (Morphine Shelter Advocate 150 Mg In 30 Ml) 150 mg IV ASDIRECTED RUMA PRN Reason: Protocol Last Admin: 07/22/16 06:49 Dose: 150 mg Morphine Sulfate (Morphine Shelter Advocate 150 Mg In 30 Ml) 0 mg IV ASDIRECTED PRN; Protocol PRN Reason: PAIN Last Admin: 07/26/16 03:12 Dose: 150 mg Naloxone HCl (Narcan) 0.1 mg IV ASDIRECTED PRN PRN Reason: decreased respiratory rate Naloxone HCl (Narcan) 0.1 mg IV ASDIRECTED PRN PRN Reason: decreased respiratory rate Naloxone HCl (Narcan) Confirm Administered Dose 0.4 mg .ROUTE .STK-MED ONE Stop: 07/20/16 20:01 Naloxone HCl (Narcan) 0.1 mg IV ASDIRECTED PRN PRN Reason: decreased respiratory rate Neostigmine Methylsulfate (Neostigmine) Confirm Administered Dose 5 mg .ROUTE .STK-MED ONE Stop: 07/16/16 07:27 Neostigmine Methylsulfate (Neostigmine) Confirm Administered Dose 5 mg .ROUTE .STK-MED ONE Stop: 07/20/16 16:44 Nitroglycerin (Nitrostat) 0.4 mg SL Q5M PRN PRN Reason: CHEST PAIN Fentanyl Patch Check 0 each TOP DAILY [facility] Last Admin: 07/20/16 09:27 Dose: 1 each Fentanyl Patch Check 0 each TOP DAILY@2200 [facility] Last Admin: 07/20/16 22:19 Dose: Not Given Verify Fentanyl (Patch) 0 each TOP BID [facility] Last Admin: 07/24/16 23:12 Dose: Not Given Non-Formulary Medication (Total Parenteral Nutrition, Central) 1,000 ml .XX .Continue Order [facility] Stop: 07/27/16 16:00 Non-Formulary Medication (Total Parenteral Nutrition, Central) 1,000 ml .XX .Continue Order [facility] Stop: 07/29/16 23:00 Non-Formulary Medication (Total Parenteral Nutrition, Central) 1,000 ml .XX .Continue Order [facility] Stop: 07/30/16 14:00 Ondansetron HCl (Zofran) Confirm Administered Dose 4 mg .ROUTE .STK-MED ONE Stop: 07/16/16 07:27 Ondansetron HCl (Zofran) 4 mg IVPUSH Q4H PRN PRN Reason: NAUSEA Last Admin: 07/17/16 10:56 Dose: 4 mg Ondansetron HCl (Zofran) Confirm Administered Dose 4 mg .ROUTE .STK-MED ONE Stop: 07/20/16 16:44 Oxycodone HCl (Oxycodone) 5 - 10 mg PO Q4H PRN PRN Reason: Pain Last Admin: 07/28/16 12:27 Dose: 10 mg Oxycodone/Acetaminophen (Percocet 325-5 Mg) 1 - 2 tab PO Q4H PRN PRN Reason: PAIN Last Admin: 07/20/16 03:34 Dose: 2 tab Pantoprazole Sodium (Protonix Iv) 40 mg IV Q24H RUMA Last Admin: 07/25/16 20:56 Dose: 40 mg Polyethylene Glycol (Miralax) 119 gm PO ONETIME ONE Stop: 07/20/16 10:01 Last Admin: 07/20/16 09:35 Dose: 119 gm Propofol (Diprivan 20 Ml) Confirm Administered Dose 200 mg .ROUTE .STK-MED ONE Stop: 07/16/16 07:27 Propofol (Diprivan 20 Ml) Confirm Administered Dose 200 mg .ROUTE .STK-MED ONE Stop: 07/20/16 16:44 Propofol (Diprivan 20 Ml) Confirm Administered Dose 200 mg .ROUTE .STK-MED ONE Stop: 07/22/16 07:04 Rocuronium [place] (Zemuron) Confirm Administered Dose 50 mg .ROUTE .STK-MED ONE Stop: 07/16/16 07:27 Rocuronium [place] (Zemuron) Confirm Administered Dose 50 mg .ROUTE .STK-MED ONE Stop: 07/20/16 16:44 Rocuronium [place] (Zemuron) Confirm Administered Dose 50 mg .ROUTE .STK-MED ONE Stop: 07/20/16 18:24 Sodium Chloride (Saline Flush) 10 ml IV ASDIRECTED PRN PRN Reason: LINE FLUSH Sodium Chloride (Saline Flush) 10 ml FLUSH ONETIME ONE Stop: 07/30/16 02:22 Last Admin: 07/30/16 03:03 Dose: 10 ml Succinylcholine Chloride (Succinylcholine In Ns Pf) Confirm Administered Dose 200 mg .ROUTE .STK-MED ONE Stop: 07/16/16 07:27 Succinylcholine Chloride (Succinylcholine In Ns Pf) Confirm Administered Dose 200 mg .ROUTE .STK-MED ONE Stop: 07/20/16 16:44 Tamsulosin HCl (Flomax) 0.4 mg PO BEDTIME RUMA Last Admin: 07/19/16 21:18 Dose: 0.4 mg Tamsulosin HCl (Flomax) 0.4 mg PO ONETIME ONE Stop: 07/17/16 09:01 Last Admin: 07/17/16 10:18 Dose: 0.4 mg Tamsulosin HCl (Flomax) 0.4 mg PO ONETIME ONE Stop: 07/24/16 08:31 Last Admin: 07/24/16 09:06 Dose: 0.4 mg Vancomycin HCl (Vancomycin) 1 gm IV .PHARMACY TO DOSE RUMA Stop: 07/25/16 12:00 - Exam Quality Assessment: No: supplemental oxygen General: alert, oriented, cooperative, no acute distress Neck: supple Lungs: Normal respiratory effort Cardiovascular: Regular Rate, Regular Rhythm Abdomen: soft, no distension Extremities: no edema, no cyanosis Skin: warm, dry Psy/Mental Status: alert, normal affect - Problem List Review Problem List Initiated/Reviewed/Updated: Yes - Plan Plan:: ASSESSMENT AND RECOMMENDATIONS Probable wound infection - clinically improving with fluconazole, drainage has been decreasing daily. No evidence for abscess on CT. -continue fluconazole for 7 days -continue oral oxycodone with as needed hydromorphone -Followup blood and wound cultures SEPSIS SECONDARY TO INTESTINAL PERFORATION - status post delayed primary closure done 07/24, hemodynamically stable. Cultures from surgery are growing enterococcus and Escherichia coli. clinically seems to be getting better from the standpoint. -Postoperative care per surgical team -followup cultures -continue current antibiotics -nutritional support with TPN Thrush - pain and exam both much improved today. -Continue oral nystatin and Magic mouthwash ACUTE KIDNEY INJURY - likely secondary to hypotension related to sepsis, renal function has improved and has been stable for several days with good urine output. -Continue to monitor urine output and renal function closely STATUS POST ABDOMINAL WALL HERNIA REPAIR - bowels have been moving but appetite is not good. He is on TPN for nutritional support in this could be contributing to his lack of appetite. -continue full liquids -try to wean TPN as able CORONARY ARTERY DISEASE-asymptomatic Caden Momin M.D.
[2016-07-31] MEDS: Pantoprazole 40 MG Tab.CR PO SCH (21:15)
[2016-07-31] MEDS: Tamsulosin 0.4 MG Cap.ER PO SCH (21:16)
[2016-08-01] MEDS: traMADol 50 MG Tab PO PRN ×3 (01:20→21:55)
[2016-08-01] MEDS: LORazepam 0.5 MG Tab PO PRN ×2 (01:21→05:30)
[2016-08-01] MEDS: Ciprofloxacin in D5W 400 MG in Premix Bag 1 BAG IV SCH ×4 (01:23→14:49)
[2016-08-01] MEDS: Magnesium Sulfate/Water 2 GM in Premix Bag 1 BAG IV SCH ×4 (04:25→21:57)
[2016-08-01] MEDS: Lidocaine 2% 30 ML, Alum Hydrox/Mag Hydrox/Simeth 30 ML, diphenhydrAMINE 75 MG PO SCH ×12 (05:31→21:57)
[2016-08-01] MEDS: Nystatin Susp 100,000 Unit/ML 5 ML UD Cup PO SCH ×4 (05:31→21:57)
[2016-08-01] MEDS: 1: AA 5%/Calcium/D15W/Lytes 1,000 ML with MVI, Adult with Vitamin K 10 ML, Chromium/Copp IV SCH ×3 (07:33)
[2016-08-01] MEDS: metroNIDAZOLE/Normal Saline 500 MG in Premix Bag 1 BAG IV SCH ×3 (07:33→22:01)
[2016-08-01] MEDS: Albuterol/Ipratropium 3.0-0.5 MG/3 ML Neb Soln INH SCH ×4 (07:40→20:04)
[2016-08-01] MEDS ORDERED: Central Total Parenteral Nutrition Bag SCH (08:15)
[2016-08-01] MEDS: Fluconazole/Normal Saline 200 MG in Premix Bag 1 BAG IV SCH (10:04)
[2016-08-01] MEDS: Losartan 50 MG Tab PO SCH (10:22)
[2016-08-01] MEDS: Acetaminophen Soln 650 MG/20.3 ML UD Cup GTUBE PRN ×2 (10:25→18:53)
--- NOTE | 2016-08-01 11:55 | PCM.PN ---
- General Info Date of Service: 08/01/16 Functional Status: Reports: pain controlled, tolerating diet, ambulating - Review of Systems HEENT: Reports: other (odynophagia) Gastrointestinal: Reports: Abdominal pain Neurological: Reports: Confusion Systems Review Comment:: No acute events overnight. Patient did report seeing a raccoon in his bathroom last night. Seems a little bit confused this morning but no hallucinations. His tongue and throat pain has been steadily improving and he's been able to increase his food intake. Abdominal pain seems to be improving. He has been able to get up and move around a little better each day. No complaints of headache. Blurry vision seems to be improving. - Patient Data Vitals - most recent: Last Vital Signs Temp 36.5 C 08/01/16 10:59 Pulse 95 08/01/16 10:59 Resp 16 08/01/16 10:59 BP 136/72 08/01/16 10:59 Pulse Ox 95 08/01/16 10:59 Weight - most recent: 108.953 kg I&O - last 24 hours: Intake & Output 07/31/16 08/01/16 08/01/16 22:59 06:59 14:59 Intake Total 1783 1693 350 Output Total 1877 1270 950 Balance -94 423 -600 Lab Results last 24 hrs: Laboratory Results - last 24 hr 08/01/16 08/01/16 Range/Units 04:22 04:22 WBC 11.5 H (4.5-11.0) K/uL RBC 4.05 L (4.30-5.90) M/uL Hgb 11.8 L (12.0-15.0) g/dL Hct 36.3 L (40.0-54.0) % MCV 90 (80-98) fL MCH 29 (27-31) pg MCHC 33 (32-36) % Plt Count 461 H (150-400) K/uL Sodium 142 (140-148) mmol/L Potassium 4.1 (3.6-5.2) mmol/L Chloride 108 (100-108) mmol/L Carbon Dioxide 24 (21-32) mmol/L Anion Gap 9.8 (5.0-14.0) mmol/L BUN 21 H (7-18) mg/dL Creatinine 1.2 (0.8-1.3) mg/dL Est Cr Clr Drug Dosing 64.37 mL/min Estimated GFR (MDRD) > 60 (>60) Glucose 89 (74-106) mg/dL Calcium 7.7 L (8.5-10.1) mg/dL Phosphorus 4.1 (2.5-4.9) mg/dL Magnesium 1.9 (1.8-2.4) mg/dL Total Bilirubin 0.7 (0.2-1.0) mg/dL AST 36 (15-37) U/L ALT 101 H (12-78) U/L Alkaline Phosphatase 41 L (46-116) U/L Total Protein 6.5 (6.4-8.2) g/dL Albumin 2.2 L (3.4-5.0) g/dL Globulin 4.3 H (2.3-3.5) g/dL Albumin/Globulin Ratio 0.5 L (1.2-2.2) Boby Results last 24 hrs: Microbiology 07/30/16 13:45 Quick Strep Confirmation Culture - Preliminary Throat NO GROUP A STREP ISOLATED Group A Streptococcus Rapid Screen - Final NEGATIVE STREP A SCREEN 07/31/16 10:07 Clostridium difficile (PCR) - Final Stool / Feces NEGATIVE CDIFF TOXIN Med Orders - Current: Current Medications Acetaminophen (Tylenol) 650 mg GTUBE Q4H PRN PRN Reason: Pain (mild 1-3) Last Admin: 08/01/16 10:25 Dose: 650 mg Albuterol/Ipratropium (Duoneb 3.0-0.5 Mg/3 Ml) 3 ml INH QIDRT RUMA Last Admin: 08/01/16 10:38 Dose: 3 ml Albuterol/Ipratropium (Duoneb 3.0-0.5 Mg/3 Ml) 3 ml INH ASDIRECTED PRN PRN Reason: * Last Admin: 07/23/16 23:50 Dose: 3 ml Benzocaine/Menthol (Cepacol Sore Throat) 1 lozenge MUCMEM Q1H PRN PRN Reason: Pain Lidocaine HCl 30 ml/ Al Hydroxide/Mg Hydroxide 30 ml/Diphenhydramine HCl 75 mg 0 ml PO QID RUMA Last Admin: 08/01/16 10:22 Dose: 15 ml Dimethicone/Zinc Oxide (Rash Relief-Zinc Oxide Tumtum) 0 gm TOP ASDIRECTED PRN PRN Reason: Rash Heparin Sodium (Porcine) (Heparin Lock Flush 100 Units/Ml Syringe) 500 units FLUSH ASDIRECTED PRN PRN Reason: IV Use Last Admin: 08/01/16 10:04 Dose: 500 units Fluconazole/Sodium Chloride (200 mg/ Premix) 100 mls @ 100 mls/hr IV Q24H [facility] Last Admin: 08/01/16 10:04 Dose: 100 mls/hr Multivitamins/Minerals 10 ml/Chromium/Copper/Manganese/Seleni/Zn 1 ml/ Amino Ac/ Electrol/Dextrose/Calcium 1,011 mls @ 82 mls/hr IV .BY DURATION [facility] Stop: 08/01/16 16:00 Last Admin: 07/31/16 19:11 Dose: 82 mls/hr Amino Ac/Electrol/Dextrose/Calcium (Clinimix E 5/15) 1,000 mls @ 82 mls/hr IV .BY DURATION [facility] Stop: 08/01/16 16:00 Last Admin: 08/01/16 07:33 Dose: 82 mls/hr Vancomycin HCl 1.5 gm/ Sodium (Chloride) 250 mls @ 167 mls/hr IV Q12H [facility] Last Admin: 08/01/16 04:22 Dose: 167 mls/hr Metronidazole 500 mg/ Premix 100 mls @ 100 mls/hr IV Q8H [facility] Last Admin: 08/01/16 07:33 Dose: 100 mls/hr Ciprofloxacin/Dextrose 400 mg/ (Premix) 200 mls @ 200 mls/hr IV Q12H [facility] Last Admin: 08/01/16 01:23 Dose: 200 mls/hr Magnesium Sulfate 2 gm/ Premix 50 mls @ 25 mls/hr IV Q6HR [facility] Stop: 08/03/16 05:59 Last Admin: 08/01/16 10:22 Dose: 25 mls/hr Multivitamins/Minerals 10 ml/Chromium/Copper/Manganese/Seleni/Zn 1 ml/ Amino Ac/ Electrol/Dextrose/Calcium 1,011 mls @ 40 mls/hr IV .BY DURATION [facility] Amino Ac/Electrol/Dextrose/Calcium (Clinimix E 5/15) 1,000 mls @ 40 mls/hr IV .BY DURATION [facility] Lorazepam (Ativan) 1 mg PO Q4H PRN PRN Reason: Anxiety Losartan Potassium (Cozaar) 50 mg PO DAILY [facility] Last Admin: 08/01/16 10:22 Dose: 50 mg Naloxone HCl (Narcan) 0.1 mg IV ASDIRECTED PRN PRN Reason: decreased respiratory rate Nitroglycerin (Nitrostat) 0.4 mg SL Q5M PRN PRN Reason: CHEST PAIN Non-Formulary Medication (Total Parenteral Nutrition, Central) 1,000 ml .XX .Continue Order [facility] Stop: 08/01/16 14:00 Nystatin (Mycostatin) 5 ml PO QID [facility] Last Admin: 08/01/16 10:22 Dose: 5 ml Ondansetron HCl (Zofran) 4 mg IVPUSH Q4H PRN PRN Reason: NAUSEA Pantoprazole Sodium (Protonix) 40 mg PO BEDTIME [facility] Last Admin: 07/31/16 21:15 Dose: 40 mg Tamsulosin HCl (Flomax) 0.4 mg PO BEDTIME [facility] Last Admin: 07/31/16 21:16 Dose: 0.4 mg Tramadol HCl (Ultram) 50 - 100 mg PO Q4H PRN PRN Reason: Pain Last Admin: 08/01/16 05:30 Dose: 100 mg Discontinued Medications Acetaminophen (Tylenol) 650 mg PO Q4H PRN PRN Reason: Fever Last Admin: 07/26/16 19:54 Dose: 650 mg Acetaminophen (Tylenol) 650 mg PO Q4H PRN PRN Reason: Pain (mild 1-3) Last Admin: 07/29/16 00:39 Dose: 650 mg Acetaminophen (Tylenol) 650 mg PO Q4H PRN PRN Reason: Pain (mild 1-3) Albuterol (Proventil Neb Soln) 2.5 mg NEB Q4H PRN PRN Reason: Dyspnea Last Admin: 07/20/16 16:13 Dose: 2.5 mg Bacitracin (Bacitracin Oint) 0 gm TOP TID [facility] Last Admin: 07/20/16 13:58 Dose: 1 applic Bisacodyl (Dulcolax) 10 mg PO BID [facility] Last Admin: 07/20/16 09:22 Dose: 10 mg Bisacodyl (Dulcolax) 10 mg RECTAL BID PRN PRN Reason: Constipation Last Admin: 07/19/16 17:31 Dose: 10 mg Bisacodyl (Dulcolax) 20 mg PO ONETIME ONE Stop: 07/26/16 10:01 Last Admin: 07/26/16 09:09 Dose: 20 mg Bisacodyl (Dulcolax) 10 mg RECTAL BID [facility] Last Admin: 07/26/16 21:21 Dose: 10 mg Bisacodyl (Dulcolax) 10 mg RECTAL DAILY PRN PRN Reason: Constipation Bisacodyl (Dulcolax) 20 mg PO ONETIME ONE Stop: 07/29/16 10:01 Last Admin: 07/29/16 12:58 Dose: 20 mg Bupivacaine HCl (Marcaine 0.5%) Confirm Administered Dose 50 ml .ROUTE .STK-MED ONE Stop: 07/22/16 06:41 Last Admin: 07/22/16 07:34 Dose: 20 ml Bupivacaine HCl/Epinephrine Bitart (Marcaine 0.5%/Epinephrine 1:200,000) Confirm Administered Dose 50 ml .ROUTE .STK-MED ONE Stop: 07/16/16 06:43 Last Admin: 07/16/16 07:28 Dose: 10 ml Buspirone HCl (Buspar) 15 mg PO DAILY [facility] Last Admin: 07/20/16 09:21 Dose: 15 mg Buspirone HCl (Buspar) 7.5 mg PO QPM [facility] Last Admin: 07/20/16 17:57 Dose: Not Given Buspirone HCl (Buspar) 15 mg PO DAILY [facility] Last Admin: 07/29/16 10:59 Dose: 15 mg Buspirone HCl (Buspar) 7.5 mg PO BEDTIME [facility] Last Admin: 07/28/16 20:52 Dose: 7.5 mg Dexamethasone (Dexamethasone) Confirm Administered Dose 4 mg .ROUTE .STK-MED ONE Stop: 07/16/16 07:27 Dexamethasone (Dexamethasone) Confirm Administered Dose 4 mg .ROUTE .STK-MED ONE Stop: 07/20/16 16:44 Diatrizoate Meglum/Diatrizoate Sod (Gastrografin 37%) 1,200 ml .XX . DIRECTED [facility] Stop: 07/20/16 14:16 Last Admin: 07/20/16 15:27 Dose: 1,200 ml Diphenhydramine HCl (Benadryl) 25 mg PO BEDTIME PRN PRN Reason: Sleep Last Admin: 07/29/16 00:39 Dose: 25 mg Diphenhydramine HCl (Benadryl) 25 mg PO BEDTIME PRN PRN Reason: SLEEP Diphenhydramine HCl (Benadryl) 25 mg GTUBE BEDTIME PRN PRN Reason: SLEEP Docusate Sodium (Colace) 100 mg PO BID [facility] Last Admin: 07/28/16 20:52 Dose: 100 mg Docusate Sodium (Colace 50 Mg/5 Ml Liquid) 100 mg GTUBE BID [facility] Last Admin: 07/31/16 21:13 Dose: 100 mg Fentanyl (Sublimaze) Confirm Administered Dose 500 mcg .ROUTE .STK-MED ONE Stop: 07/16/16 07:27 Fentanyl (Sublimaze) Confirm Administered Dose 250 mcg .ROUTE .STK-MED ONE Stop: 07/16/16 09:21 Fentanyl (Duragesic) 25 mcg TRDERM Q72H [facility] Last Admin: 07/20/16 09:24 Dose: 25 mcg Fentanyl (Sublimaze) Confirm Administered Dose 250 mcg .ROUTE .STK-MED ONE Stop: 07/20/16 16:45 Fentanyl (Sublimaze) Confirm Administered Dose 250 mcg .ROUTE .STK-MED ONE Stop: 07/20/16 18:24 Fentanyl (Duragesic) 25 mcg TRDERM Q72H [facility] Last Admin: 07/20/16 22:18 Dose: Not Given Fentanyl (Duragesic) 25 mcg TRDERM Q72H [facility] Fentanyl (Sublimaze) Confirm Administered Dose 100 mcg .ROUTE .STK-MED ONE Stop: 07/22/16 07:04 Fentanyl (Duragesic) 50 mcg TRDERM Q72H [facility] Last Admin: 07/22/16 09:40 Dose: 50 mcg Furosemide (Lasix) 20 mg IVPUSH Q8H [facility] Last Admin: 07/24/16 15:59 Dose: Not Given Glycopyrrolate () Confirm Administered Dose 1 mg .ROUTE .STK-MED ONE Stop: 07/16/16 07:27 Glycopyrrolate () Confirm Administered Dose 1 mg .ROUTE .STK-MED ONE Stop: 07/20/16 16:44 Haloperidol Lactate (Haldol) 2.5 mg IVPUSH ONETIME ONE Stop: 07/23/16 06:18 Last Admin: 07/23/16 06:26 Dose: 2.5 mg Haloperidol Lactate (Haldol) 2.5 mg IVPUSH Q1H PRN PRN Reason: PSYCHOSIS/ANXIETY Last Admin: 07/23/16 18:10 Dose: 2.5 mg Heparin Sodium (Porcine) (Heparin Lock Flush 100 Units/Ml Syringe) Confirm Administered Dose 500 units .ROUTE .STK-MED ONE Stop: 07/20/16 17:25 Last Admin: 07/20/16 17:28 Dose: 500 units Heparin Sodium (Porcine) (Heparin Sodium) Confirm Administered Dose 5,000 units .ROUTE .STK-MED ONE Stop: 07/20/16 20:54 Last Admin: 07/20/16 21:06 Dose: 5,000 units Hydromorphone HCl (Dilaudid Airline Security Representative 15 Mg In Ns 30 Ml) 0 mg IV ASDIRECTED PRN; Protocol PRN Reason: Pain Last Admin: 07/16/16 07:37 Dose: 0.3 mg Hydromorphone HCl (Dilaudid Airline Security Representative 15 Mg In Ns 30 Ml) 0 mg IV ASDIRECTED PRN; Protocol PRN Reason: PAIN Last Admin: 07/20/16 07:38 Dose: 15 mg Hydromorphone HCl (Dilaudid Airline Security Representative 15 Mg In Ns 30 Ml) 0 mg IV ASDIRECTED PRN; Protocol PRN Reason: PAIN Last Admin: 07/21/16 07:19 Dose: 15 mg Hydromorphone HCl (Dilaudid) 0.5 - 1 mg IVPUSH Q2H PRN PRN Reason: Pain (severe 7-10) Last Admin: 07/27/16 00:30 Dose: 1 mg Hydroxyzine HCl (Vistaril) 100 mg IM Q4H PRN PRN Reason: Pain Last Admin: 07/20/16 14:41 Dose: 100 mg Hydroxyzine HCl (Vistaril) 100 mg IM Q4H PRN PRN Reason: PAIN Last Admin: 07/26/16 12:16 Dose: 100 mg Hydroxyzine HCl (Vistaril) 50 mg IM ONETIME ONE Stop: 07/22/16 06:14 Last Admin: 07/22/16 06:29 Dose: 50 mg Clindamycin Phosphate 900 mg/ (Sodium Chloride) 106 mls @ 212 mls/hr IV ONETIME ONE Stop: 07/16/16 07:59 Last Admin: 07/16/16 07:48 Dose: 212 mls/hr Dextrose/Lactated Ringer's (Dextrose 5%-Lactated Ringers) 1,000 mls @ 100 mls/ hr IV ASDIRECTED [facility] Last Admin: 07/16/16 07:37 Dose: 100 mls/hr Lactated Ringer's (Ringers, Lactated) Confirm Administered Dose 1,000 mls @ as directed .ROUTE .STK-MED ONE Stop: 07/16/16 09:17 Dextrose/Lactated Ringer's (Dextrose 5%-Lactated Ringers) 1,000 mls @ 150 mls/ hr IV ASDIRECTED [facility] Last Admin: 07/18/16 04:26 Dose: 150 mls/hr Cefazolin Sodium 2 gm/ Sodium (Chloride) 50 mls @ 100 mls/hr IV Q8H [facility] Stop: 07/17/16 06:29 Last Admin: 07/17/16 05:08 Dose: 100 mls/hr Dextrose/Lactated Ringer's (Dextrose 5%-Lactated Ringers) 1,000 mls @ 100 mls/ hr IV ASDIRECTED [facility] Last Admin: 07/19/16 14:53 Dose: 100 mls/hr Acetaminophen 1,000 mg/ Premix 100 mls @ 400 mls/hr IV Q6H PRN PRN Reason: PAIN Stop: 07/20/16 10:30 Acetaminophen 1,000 mg/ Premix 100 mls @ 400 mls/hr IV NOW ONE Stop: 07/20/16 07:32 Last Admin: 07/20/16 07:31 Dose: 400 mls/hr Lactated Ringer's (Ringers, Lactated) 1,000 mls @ 1,000 mls/hr IV ASDIRECTED [facility] Stop: 07/20/16 09:31 Last Admin: 07/20/16 09:10 Dose: 1,000 mls/hr Levofloxacin/Dextrose 500 mg/ (Premix) 100 mls @ 100 mls/hr IV Q24H [facility] Last Admin: 07/20/16 09:22 Dose: 100 mls/hr Acetaminophen 1,000 mg/ Premix 100 mls @ 400 mls/hr IV Q6H [facility] Last Admin: 07/20/16 22:20 Dose: 400 mls/hr Lactated Ringer's (Ringers, Lactated) 1,000 mls @ 250 mls/hr IV ASDIRECTED [facility] Stop: 07/20/16 14:01 Last Admin: 07/20/16 11:04 Dose: 250 mls/hr Meropenem 1 gm/ Sodium (Chloride) 50 mls @ 100 mls/hr IV Q8H [facility] Last Admin: 07/20/16 11:41 Dose: 100 mls/hr Lactated Ringer's (Ringers, Lactated) 1,000 mls @ 999 mls/hr IV BOLUS ONE Stop: 07/20/16 17:19 Last Admin: 07/20/16 21:10 Dose: 999 mls/hr Lactated Ringer's (Ringers, Lactated) Confirm Administered Dose 1,000 mls @ as directed .ROUTE .STK-MED ONE Stop: 07/20/16 18:26 Lactated Ringer's (Ringers, Lactated) Confirm Administered Dose 1,000 mls @ as directed .ROUTE .STK-MED ONE Stop: 07/20/16 18:27 Dextrose/Lactated Ringer's (Dextrose 5%-Lactated Ringers) 1,000 mls @ 100 mls/ hr IV ASDIRECTED [facility] Stop: 07/23/16 09:59 Last Admin: 07/23/16 00:19 Dose: 100 mls/hr Lactated Ringer's (Ringers, Lactated) 1,000 mls @ 100 mls/hr IV ASDIRECTED [facility] Stop: 07/21/16 17:59 Last Admin: 07/21/16 07:22 Dose: 100 mls/hr Aztreonam 1 gm/ Sodium (Chloride) 50 mls @ 100 mls/hr IV Q8HR [facility] Last Admin: 07/21/16 05:06 Dose: 100 mls/hr Meropenem 500 mg/ Sodium (Chloride) 50 mls @ 100 mls/hr IV Q8H [facility] Last Admin: 07/26/16 05:17 Dose: 100 mls/hr Acetaminophen 1,000 mg/ Premix 100 mls @ 400 mls/hr IV Q6H [facility] Stop: 07/21/16 16:14 Last Admin: 07/21/16 17:12 Dose: 400 mls/hr Aztreonam/Dextrose 1 gm/ (Premix) 50 mls @ 100 mls/hr IV Q8HR [facility] Last Admin: 07/25/16 05:52 Dose: 100 mls/hr Lactated Ringer's (Ringers, Lactated) 1,000 mls @ 40 mls/hr IV ASDIRECTED RUMA Lactated Ringer's (Ringers, Lactated) 1,000 mls @ 40 mls/hr IV ASDIRECTED [facility] Last Admin: 07/23/16 03:55 Dose: 40 mls/hr Albumin Human 12.5 gm/ Premix 50 mls @ 25 mls/hr IV Q24H [facility] Stop: 07/26/16 10:59 Last Admin: 07/26/16 09:09 Dose: 25 mls/hr Albumin Human 12.5 gm/ Premix 50 mls @ 25 mls/hr IV Q24H [facility] Stop: 07/26/16 12:59 Last Admin: 07/26/16 10:44 Dose: 25 mls/hr Albumin Human 12.5 gm/ Premix 50 mls @ 25 mls/hr IV Q24H [facility] Stop: 07/26/16 14:59 Last Admin: 07/26/16 12:45 Dose: 25 mls/hr Albumin Human 12.5 gm/ Premix 50 mls @ 25 mls/hr IV Q24H [facility] Stop: 07/26/16 16:59 Last Admin: 07/26/16 15:09 Dose: 25 mls/hr Multivitamins/Minerals 10 ml/Chromium/Copper/Manganese/Seleni/Zn 1 ml/ Amino Ac/ Electrol/Dextrose/Calcium 1,011 mls @ 82 mls/hr IV .BY DURATION [facility] Last Admin: 07/23/16 10:23 Dose: 82 mls/hr Amino Ac/Electrol/Dextrose/Calcium (Clinimix E /15) 1,000 mls @ 82 mls/hr IV .BY DURATION [facility] Last Admin: 07/23/16 22:44 Dose: 82 mls/hr Lactated Ringer's (Ringers, Lactated) 1,000 mls @ 0 mls/hr IV ASDIRECTED [facility] PRN Reason: KVO Last Admin: 07/24/16 19:59 Dose: 25 mls/hr Acetaminophen 1,000 mg/ Premix 100 mls @ 400 mls/hr IV Q6H PRN PRN Reason: Pain Stop: 07/24/16 23:18 Last Admin: 07/24/16 20:14 Dose: 400 mls/hr Potassium Chloride 40 meq/ (Premix) 100 mls @ 25 mls/hr IV ONETIME ONE Stop: 07/24/16 12:29 Last Admin: 07/24/16 08:56 Dose: 25 mls/hr Potassium Chloride 20 meq/ (Premix) 100 mls @ 50 mls/hr IV ONETIME ONE Stop: 07/24/16 14:59 Last Admin: 07/24/16 12:31 Dose: 50 mls/hr Multivitamins/Minerals 10 ml/Chromium/Copper/Manganese/Seleni/Zn 1 ml/ Amino Ac/ Electrol/Dextrose/Calcium 1,011 mls @ 82 mls/hr IV .BY DURATION [facility] Last Admin: 07/25/16 13:40 Dose: 82 mls/hr Amino Ac/Electrol/Dextrose/Calcium (Clinimix E 5/15) 1,000 mls @ 82 mls/hr IV .BY DURATION [facility] Last Admin: 07/26/16 00:18 Dose: 82 mls/hr Lactated Ringer's (Ringers, Lactated) 1,000 mls @ 25 mls/hr IV ASDIRECTED [facility] PRN Reason: KVO Acetaminophen 1,000 mg/ Premix 100 mls @ 400 mls/hr IV Q6H PRN PRN Reason: Pain Stop: 07/26/16 05:10 Last Admin: 07/26/16 03:58 Dose: 400 mls/hr Vancomycin HCl 1.75 gm/ Sodium (Chloride) 250 mls @ 167 mls/hr IV ONETIME ONE Stop: 07/25/16 12:29 Last Admin: 07/25/16 11:35 Dose: 167 mls/hr Vancomycin HCl 1.5 gm/ Sodium (Chloride) 250 mls @ 167 mls/hr IV Q12H [facility] Last Admin: 07/26/16 22:58 Dose: 167 mls/hr Ceftriaxone Sodium 2 gm/ (Sodium Chloride) 50 mls @ 100 mls/hr IV Q24H [facility] Last Admin: 07/30/16 13:05 Dose: 100 mls/hr Multivitamins/Minerals 10 ml/Chromium/Copper/Manganese/Seleni/Zn 1 ml/ Amino Ac/ Electrol/Dextrose/Calcium 1,011 mls @ 82 mls/hr IV .BY DURATION [facility] Stop: 07/30/16 14:56 Last Admin: 07/29/16 17:10 Dose: 82 mls/hr Amino Ac/Electrol/Dextrose/Calcium (Clinimix E 09/27) 1,000 mls @ 82 mls/hr IV .BY DURATION [facility] Stop: 07/30/16 14:56 Last Admin: 07/30/16 05:43 Dose: 82 mls/hr Acetaminophen 1,000 mg/ Premix 100 mls @ 400 mls/hr IV Q6H PRN PRN Reason: Pain Stop: 07/27/16 23:45 Last Admin: 07/27/16 15:33 Dose: 400 mls/hr Vancomycin HCl 1.7 gm/ Sodium (Chloride) 250 mls @ 167 mls/hr IV Q12H [facility] Last Admin: 07/29/16 23:37 Dose: 167 mls/hr Sodium Chloride (Normal Saline) 85 mls @ 3 mls/sec IV ASDIRECTED [facility] Last Admin: 07/30/16 03:03 Dose: 3 mls/sec Iopamidol (Isovue-300 (61%)) 150 ml IV . DIRECTED [facility] Stop: 07/30/16 02:31 Last Admin: 07/30/16 03:03 Dose: 150 ml Ketorolac Tromethamine (Toradol) 60 mg IM ONETIME ONE Stop: 07/19/16 17:04 Last Admin: 07/19/16 17:30 Dose: 60 mg Labetalol HCl (Normodyne) 5 - 10 mg IV Q2H PRN PRN Reason: BP Last Admin: 07/25/16 05:19 Dose: 10 mg Labetalol HCl (Normodyne) Confirm Administered Dose 20 mg .ROUTE .STK-MED ONE Stop: 07/25/16 05:16 Last Admin: 07/25/16 08:49 Dose: Not Given Labetalol HCl (Normodyne) 0 mg IV Q2H PRN PRN Reason: BP Last Admin: 07/26/16 11:21 Dose: 10 mg Lidocaine HCl (Xylocaine 2% Jelly) 10 ml MUCMEM ONETIME ONE Stop: 07/16/16 21:15 Last Admin: 07/16/16 21:41 Dose: 10 ml Lidocaine/Epinephrine (Xylocaine 1% With Epinephrine 1:100,000) Confirm Administered Dose 50 ml .ROUTE .STK-MED ONE Stop: 07/22/16 06:41 Last Admin: 07/22/16 07:34 Dose: 20 ml Lorazepam (Ativan) 0.5 - 1 mg IVPUSH Q4H PRN PRN Reason: Anxiety Lorazepam (Ativan) 0.5 mg IVPUSH Q2H PRN PRN Reason: Anxiety Last Admin: 07/23/16 16:53 Dose: 0.5 mg Lorazepam (Ativan) 0.5 mg PO Q4H PRN PRN Reason: Anxiety Last Admin: 08/01/16 05:30 Dose: 0.5 mg Losartan Potassium (Cozaar) 50 mg PO DAILY [facility] Last Admin: 07/20/16 09:21 Dose: 50 mg Magnesium Citrate (Citrate Of Magnesia) 296 ml PO ONETIME ONE Stop: 07/18/16 09:01 Last Admin: 07/18/16 10:55 Dose: 296 ml Magnesium Hydroxide (Milk Of Magnesia) 30 ml PO ONETIME ONE Stop: 07/19/16 08:46 Last Admin: 07/19/16 10:27 Dose: 30 ml Magnesium Hydroxide (Milk Of Magnesia) 30 ml PO ONETIME ONE Stop: 07/26/16 09:01 Last Admin: 07/26/16 09:09 Dose: 30 ml Magnesium Hydroxide (Milk Of Magnesia) 30 ml PO Q4H PRN PRN Reason: Constipation Magnesium Hydroxide (Milk Of Magnesia) 30 ml PO ONETIME ONE Stop: 07/29/16 09:01 Last Admin: 07/29/16 11:00 Dose: 30 ml Meperidine HCl (Demerol) 100 mg IM ONETIME ONE Stop: 07/20/16 16:01 Last Admin: 07/20/16 16:05 Dose: 100 mg Meperidine HCl (Demerol) 100 mg IM ONETIME ONE Stop: 07/22/16 06:14 Last Admin: 07/22/16 06:28 Dose: 100 mg Meropenem (Merrem) Confirm Administered Dose 500 mg .ROUTE .STK-MED ONE Stop: 07/16/16 06:43 Last Admin: 07/16/16 09:25 Dose: 500 mg Meropenem (Merrem) Confirm Administered Dose 2,000 mg .ROUTE .STK-MED ONE Stop: 07/20/16 17:25 Last Admin: 07/20/16 17:25 Dose: 2,000 mg Meropenem (Merrem) Confirm Administered Dose 500 mg .ROUTE .STK-MED ONE Stop: 07/22/16 06:41 Last Admin: 07/22/16 07:34 Dose: 500 mg Midazolam HCl (Versed 1 Mg/Ml) Confirm Administered Dose 2 mg .ROUTE .STK-MED ONE Stop: 07/20/16 16:46 Midazolam HCl (Versed 1 Mg/Ml) Confirm Administered Dose 2 mg .ROUTE .STK-MED ONE Stop: 07/22/16 07:04 Morphine Sulfate (Morphine [employer] 150 Mg In 30 Ml) 150 mg IV ASDIRECTED RUMA PRN Reason: Protocol Last Admin: 07/22/16 06:49 Dose: 150 mg Morphine Sulfate (Morphine [employer] 150 Mg In 30 Ml) 0 mg IV ASDIRECTED PRN; Protocol PRN Reason: PAIN Last Admin: 07/26/16 03:12 Dose: 150 mg Naloxone HCl (Narcan) 0.1 mg IV ASDIRECTED PRN PRN Reason: decreased respiratory rate Naloxone HCl (Narcan) 0.1 mg IV ASDIRECTED PRN PRN Reason: decreased respiratory rate Naloxone HCl (Narcan) Confirm Administered Dose 0.4 mg .ROUTE .STK-MED ONE Stop: 07/20/16 20:01 Naloxone HCl (Narcan) 0.1 mg IV ASDIRECTED PRN PRN Reason: decreased respiratory rate Neostigmine Methylsulfate (Neostigmine) Confirm Administered Dose 5 mg .ROUTE .STK-MED ONE Stop: 07/16/16 07:27 Neostigmine Methylsulfate (Neostigmine) Confirm Administered Dose 5 mg .ROUTE .STK-MED ONE Stop: 07/20/16 16:44 Nitroglycerin (Nitrostat) 0.4 mg SL Q5M PRN PRN Reason: CHEST PAIN Fentanyl Patch Check 0 each TOP DAILY [facility] Last Admin: 07/20/16 09:27 Dose: 1 each Fentanyl Patch Check 0 each TOP DAILY@2200 [facility] Last Admin: 07/20/16 22:19 Dose: Not Given Verify Fentanyl (Patch) 0 each TOP BID [facility] Last Admin: 07/24/16 23:12 Dose: Not Given Non-Formulary Medication (Total Parenteral Nutrition, Central) 1,000 ml .XX .Continue Order [facility] Stop: 07/27/16 16:00 Non-Formulary Medication (Total Parenteral Nutrition, Central) 1,000 ml .XX .Continue Order [facility] Stop: 07/29/16 23:00 Non-Formulary Medication (Total Parenteral Nutrition, Central) 1,000 ml .XX .Continue Order [facility] Stop: 07/30/16 14:00 Non-Formulary Medication (Total Parenteral Nutrition, Central) 1,000 ml .XX .Continue Order [facility] Stop: 07/31/16 14:00 Ondansetron HCl (Zofran) Confirm Administered Dose 4 mg .ROUTE .STK-MED ONE Stop: 07/16/16 07:27 Ondansetron HCl (Zofran) 4 mg IVPUSH Q4H PRN PRN Reason: NAUSEA Last Admin: 07/17/16 10:56 Dose: 4 mg Ondansetron HCl (Zofran) Confirm Administered Dose 4 mg .ROUTE .STK-MED ONE Stop: 07/20/16 16:44 Oxycodone HCl (Oxycodone) 5 - 10 mg PO Q4H PRN PRN Reason: Pain Last Admin: 07/28/16 12:27 Dose: 10 mg Oxycodone/Acetaminophen (Percocet 325-5 Mg) 1 - 2 tab PO Q4H PRN PRN Reason: PAIN Last Admin: 07/20/16 03:34 Dose: 2 tab Pantoprazole Sodium (Protonix Iv) 40 mg IV Q24H [facility] Last Admin: 07/25/16 20:56 Dose: 40 mg Polyethylene Glycol (Miralax) 119 gm PO ONETIME ONE Stop: 07/20/16 10:01 Last Admin: 07/20/16 09:35 Dose: 119 gm Propofol (Diprivan 20 Ml) Confirm Administered Dose 200 mg .ROUTE .STK-MED ONE Stop: 07/16/16 07:27 Propofol (Diprivan 20 Ml) Confirm Administered Dose 200 mg .ROUTE .STK-MED ONE Stop: 07/20/16 16:44 Propofol (Diprivan 20 Ml) Confirm Administered Dose 200 mg .ROUTE .STK-MED ONE Stop: 07/22/16 07:04 Rocuronium [place] (Zemuron) Confirm Administered Dose 50 mg .ROUTE .STK-MED ONE Stop: 07/16/16 07:27 Rocuronium [place] (Zemuron) Confirm Administered Dose 50 mg .ROUTE .STK-MED ONE Stop: 07/20/16 16:44 Rocuronium [place] (Zemuron) Confirm Administered Dose 50 mg .ROUTE .STK-MED ONE Stop: 07/20/16 18:24 Sodium Chloride (Saline Flush) 10 ml IV ASDIRECTED PRN PRN Reason: LINE FLUSH Sodium Chloride (Saline Flush) 10 ml FLUSH ONETIME ONE Stop: 07/30/16 02:22 Last Admin: 07/30/16 03:03 Dose: 10 ml Succinylcholine Chloride (Succinylcholine In Ns Pf) Confirm Administered Dose 200 mg .ROUTE .STK-MED ONE Stop: 07/16/16 07:27 Succinylcholine Chloride (Succinylcholine In Ns Pf) Confirm Administered Dose 200 mg .ROUTE .STK-MED ONE Stop: 07/20/16 16:44 Tamsulosin HCl (Flomax) 0.4 mg PO BEDTIME [facility] Last Admin: 07/19/16 21:18 Dose: 0.4 mg Tamsulosin HCl (Flomax) 0.4 mg PO ONETIME ONE Stop: 07/17/16 09:01 Last Admin: 07/17/16 10:18 Dose: 0.4 mg Tamsulosin HCl (Flomax) 0.4 mg PO ONETIME ONE Stop: 07/24/16 08:31 Last Admin: 07/24/16 09:06 Dose: 0.4 mg Vancomycin HCl (Vancomycin) 1 gm IV .PHARMACY TO DOSE RUMA Stop: 07/25/16 12:00 - Exam Quality Assessment: No: supplemental oxygen General: alert, cooperative, no acute distress. No: oriented Neck: supple Lungs: Normal respiratory effort Cardiovascular: Regular Rate, Regular Rhythm Abdomen: soft, no distension Extremities: no edema, no cyanosis Skin: warm, dry Psy/Mental Status: alert, normal affect, hallucinations - Problem List Review Problem List Initiated/Reviewed/Updated: Yes - My Orders Last 24 Hours: My Active Orders 08/01/16 11:53 Head wo Cont [CT] Routine - Plan Plan:: ASSESSMENT AND RECOMMENDATIONS Delirium and hallucinations - medication side effect suspected in these have seemed to improve steadily throughout the week. He did finally agree to a head CT today which was completely normal. No strong evidence to suggest significant infection causing difficulties. Seems to be improving as medications have been decreased. -Monitor closely Probable wound infection - clinically improving with fluconazole, drainage has been decreasing daily. No evidence for abscess on CT. -continue fluconazole for 7 days -continue oral oxycodone with as needed hydromorphone -Followup blood and wound cultures SEPSIS SECONDARY TO INTESTINAL PERFORATION - status post delayed primary closure done 07/24, hemodynamically stable. Cultures from surgery are growing enterococcus and Escherichia coli. Abdominal pain improving each day. -Postoperative care per surgical team -followup cultures -continue current antibiotics -nutritional support with TPN Thrush - pain and exam both continue to improve with current cares -Continue oral nystatin and Magic mouthwash ACUTE KIDNEY INJURY - likely secondary to hypotension related to sepsis, renal function has improved and has been stable for several days with good urine output. -Continue to monitor urine output and renal function closely STATUS POST ABDOMINAL WALL HERNIA REPAIR - bowels have been moving but appetite is not good. Appetite improving each day. -continue full liquids -try to wean TPN as able CORONARY ARTERY DISEASE-asymptomatic Caden Momin M.D.
--- NOTE | 2016-08-01 12:52 | PN ---
DATE OF SERVICE: 08/01/2016 SUBJECTIVE: Srinivas has had four bowel movements in 24 hours. His C diff was negative. The ALLIE drain #7 fell out during his shower. Pain has been controlled. He did not sleep very well last night. He did receive Ativan and Ultram 3 times. During the night, he is occasionally confused, increased anxiety. He is urinating every one and half hours. Mouth remained sore. He is using nystatin. Mouth is improving. Temp max for the past 24 hours, 100.2 at 1900. Oral intake 880. He had 20% of breakfast, 40% of lunch and dinner. Nothing was recorded. He did have a lot of visitors yesterday. REVIEW OF SYSTEMS: Remainder of review of systems negative for any pertinent positives and negatives. OBJECTIVE: GENERAL: Srinivas Lofton is a 66-year-old male. He is alert today. He looks like he is feeling better. VITAL SIGNS: TPR is 99.6, 84, 18, blood pressure is 150/87. HEENT: Negative. NECK: Supple. HEART: Regular rate and rhythm. LUNGS: Clear. ABDOMEN: His incision is reddened around the staple lines, it remains to be unchanged. Around his umbilicus, he has started to have some unclear serosanguineous drainage. Two ALLIE drains remained. ALLIE drain #4, #5, and #6; and they have drained 15.7 and 15 of serous sanguinous drainage. EXTREMITIES: Without peripheral edema. ASSESSMENT: 1. Diagnostic laparoscopy with lysis of adhesion, repair of recurrent incarcerated umbilical hernia with mesh, removal of previous mesh, placement of Vicryl mesh to displace small bowel and omentum from newly placed mesh to limit recurrent adhesive formation from the pelvic and abdominal wall and associated areas of mesh placement, recurrent of incarcerated hernia. Extensive adhesions between the previously placed mesh and omentum of the bowel. 2. Exploratory laparotomy with distal resection, total abdominal colectomy, removal of intraperitoneal mesh, insertion of central vein catheter on 07/20/2016. 3. Delayed primary closure on 07/22/2016. PLAN: 1. Decrease TPN to 40 mL/h. 2. Check CBC, CMP, Mag, phos in a.m. 3. Discontinue Colace through G-tube. 4. Increase Ativan to 1 mg q.4 hours p.r.n. anxiety by mouth. 5. Encourage good oral intake. 6. To evaluate p.r.n. or in a.m. White count is down to 11.5, hemoglobin is 11.8, potassium 4.1, magnesium 1.9. Glucose 89. Liver function tests, no change. Lidia Rao PA-C /[id number]
[2016-08-01] MEDS: Pantoprazole 40 MG Tab.CR PO SCH (20:04)
[2016-08-01] MEDS: Tamsulosin 0.4 MG Cap.ER PO SCH (20:04)
[2016-08-01] MEDS: LORazepam 1 MG Tab PO PRN (23:00)
[2016-08-02] MEDS: Ciprofloxacin in D5W 400 MG in Premix Bag 1 BAG IV SCH ×4 (01:49→14:31)
[2016-08-02] MEDS: traMADol 50 MG Tab PO PRN ×3 (04:01→22:47)
[2016-08-02] MEDS: Acetaminophen Soln 650 MG/20.3 ML UD Cup GTUBE PRN ×3 (04:02→20:24)
[2016-08-02] MEDS: Magnesium Sulfate/Water 2 GM in Premix Bag 1 BAG IV SCH ×4 (04:02→22:37)
[2016-08-02] MEDS: Nystatin Susp 100,000 Unit/ML 5 ML UD Cup PO SCH ×5 (05:24→22:37)
[2016-08-02] MEDS: Lidocaine 2% 30 ML, Alum Hydrox/Mag Hydrox/Simeth 30 ML, diphenhydrAMINE 75 MG PO SCH ×12 (05:24→22:37)
[2016-08-02] MEDS ORDERED: Central Total Parenteral Nutrition Bag SCH (07:30)
[2016-08-02] MEDS: Albuterol/Ipratropium 3.0-0.5 MG/3 ML Neb Soln INH SCH ×4 (07:31→22:58)
[2016-08-02] MEDS ORDERED: 1: AA 5%/Calcium/D15W/Lytes 1,000 ML with MVI, Adult with Vitamin K 10 ML, Chromium/Copp IV SCH ×3 (08:00)
[2016-08-02] MEDS: metroNIDAZOLE/Normal Saline 500 MG in Premix Bag 1 BAG IV SCH (08:10)
--- NOTE | 2016-08-02 08:37 | CR ---
Abdomen 2V AP Upright Decub INDICATION: pain FINDINGS: Postoperative changes in the abdomen and pelvis with multiple surgical drains in place. No nspecific bowel gas pattern. No evidence for small bowel obstruction.
--- NOTE | 2016-08-02 09:27 | PN ---
DATE OF SERVICE: 08/02/2016 SUBJECTIVE: Srinivas had a temp-max of 100.3. TPN was decreased yesterday, and he was tolerating it well. Oral intake was 700, and he did eat 5% of breakfast and 50% of both lunch and dinner. ALLIE drains that remain are #4, 5, and 6. They have put out 7, 10, and 8 respectively of a serosanguineous drainage. Incision does look reddened, and he has some drainage at his umbilicus. White count this morning is 10.4. He did have some confusion during the night, which comes and goes. OBJECTIVE: GENERAL: Srinivas Barakat is a 66-year-old male. VITAL SIGNS: TPR is 98.9, 86, 18, blood pressure 144/83. HEENT: Negative. NECK: Supple. HEART: Regular rate and rhythm. LUNGS: Clear. ABDOMEN: He still has the same area of redness on each side of the staple line. He is on day 10 of the jarret, so that will be able to come out today. ALLIE drains are intact. Abdomen is otherwise soft, normally tender after surgical procedure. Gastrostomy tube is intact. EXTREMITIES: Without peripheral edema. ASSESSMENT: 1. Diagnostic laparoscopy, lysis of adhesion, repair of recurrent incarcerated umbilical hernia with mesh, removal of previous mesh, placement of Vicryl mesh to displace small bowel and omentum from newly placed mesh to limit recurrent adhesive formation from the pelvic and abdominal wall and associated areas of mesh placement for recurrent incarcerated hernia, extensive adhesions between the previously placed mesh and some of the bowel. Date of surgery 07/16/2016. 2. Exploratory laparotomy with distal resection for a total abdominal colectomy, removal of intraperitoneal mesh, insertion of central vein catheter on 07/20/2016. 3. Delayed primary closure on 07/22/2016. PLAN: 1. Discontinue Diflucan and vancomycin. 2. Discontinue TPN. 3. Discontinue ALLIE drains. 4. Discontinue jarret, apply Steri-Strips. 5. Checks CBC, CMP in a.m. 6. He continues to get a magnesium IV. 7. Good pulmonary toilet encouraged. 8. We will evaluate p.r.n. or in a.m. Lidia Rao PA-C /[id number]
[2016-08-02] MEDS: Losartan 50 MG Tab PO SCH (09:45)
--- NOTE | 2016-08-02 14:03 | CONS ---
DATE OF SERVICE: 07/30/2016 REFERRING PHYSICIAN: CONSULTING PHYSICIAN: Vinicio Walker MD REASON FOR CONSULTATION: Evaluation of current status and abdominal pain. HISTORY OF PRESENT ILLNESS: This is a 66-year-old male who underwent incisional hernia repair with mesh on approximately 07/17/2016. The patient developed abdominal pain, fever, and tachycardia and was subsequently diagnosed with a leak at the colon. The patient then underwent what is reported as a subtotal colectomy, although no operative report is available. He then underwent a delayed primary closure on 07/22/2016. The patient has had a challenging postoperative course, but has made slow progress. Today there is concern for his general status as he has been noted to have some G-tube output that is of concern. The patient subjectively feels essentially unchanged with 4 to 6 out of 10 at the time of pain. He has not had a bowel movement in approximately 48 hours but is passing gas. PAST MEDICAL HISTORY: Hypercholesterolemia, hypertension, coronary stents, gastroesophageal reflux disease, anxiety, depression, morbid obesity, and hernia repair as above. SOCIAL HISTORY: He is not a smoker. REVIEW OF SYSTEMS: GENERAL: The patient feels tired. HEENT: No symptoms. PULMONARY: No shortness of breath. CARDIOVASCULAR: No chest pain. GASTROINTESTINAL: As above. GENITOURINARY: No dysuria. MUSCULOSKELETAL: No symptoms. SKIN: No symptoms. PSYCHIATRIC: Appropriate for his condition. NEUROLOGICAL: No gross changes. PHYSICAL EXAMINATION: VITAL SIGNS: Temperature is 98.4, blood pressure 162/89, pulse is 80, and respirations are 16. HEENT: Pupils are equal, round, and reactive to light. NECK: Supple and nontender. CARDIOVASCULAR: Regular rhythm and rate. RESPIRATORY: Lungs clear to consultation bilaterally. ABDOMEN: Nontender and nondistended. Incision healing well. Meeta are intact. G-tube is functioning well. LABORATORY DATA: Laboratory results show a white blood cell count of 21,000 and hemoglobin 11.7. Basic metabolic panel is essentially normal. IMAGING: I did review the CT scan which does not show any evidence of bowel obstruction nor any signs of abscess recurrence. ASSESSMENT AND PLAN: 1. Gastrointestinal: The patient did have some fairly normal G-tube output; however, appears to be functioning normally now. We will resume his diet at this time. CT scan does not show any evidence of bowel obstruction. We will work on bowel stimulation today and repeat serial x-rays in the morning. 2. Infectious Disease: This is somewhat disconcerting. The patient does not have any fever, but his white count continues to be elevated for several days. He is on vancomycin and ceftriaxone. We will continue vancomycin, but switch to Cipro or Flagyl to evaluate if this can bring his white blood cell count down. 3. As far as an abdominal etiology of this source, if none can be delineated, then exploratory laparotomy would be commenced; however, the patient refuses today, and I think that is an appropriate status as we have no definitive target in the abdomen and the drain output is all serosanguineous. Furthermore, the patient does have thrush at this time which could be the etiology of his ongoing elevated white blood cell count. He is on Diflucan for this and swish and swallow. We will also perform a strep culture, UA, and chest x-ray to determine any other etiologies. 4. Nutrition: The patient's nutrition started back on his diet. 5. Activity: Activity is highly encouraged. 6. Prophylaxis: The patient is on heparin and proton pump inhibitors and ambulation has been strongly encouraged. Vinicio Walker MD /[id number]
--- NOTE | 2016-08-02 14:13 | PCM.PN ---
- General Info Date of Service: 08/02/16 Functional Status: Reports: pain controlled, ambulating - Review of Systems General: Reports: Weakness. Denies: Fever, Chills Pulmonary: Reports: no symptoms Cardiovascular: Reports: No Symptoms Gastrointestinal: Reports: Abdominal pain, Decreased appetite. Denies: Diarrhea , Difficulty swallowing, Nausea, Vomiting Systems Review Comment:: This patient has continued to show slow improvement over the past several days. Doing relatively well as far as his diet and has been up in the halls ambulating. Vital signs have been stable and other than very mild temperature elevations he has remained afebrile. - Patient Data Vitals - most recent: Last Vital Signs Temp 99.2 F 08/02/16 11:00 Pulse 86 08/02/16 11:19 Resp 18 08/02/16 11:00 BP 125/72 08/02/16 11:00 Pulse Ox 95 08/02/16 11:00 Weight - most recent: 234 lb 9 oz I&O - last 24 hours: Intake & Output 08/01/16 08/02/16 08/02/16 22:59 06:59 14:59 Intake Total 848 883 Output Total 340 12 Balance 508 871 Lab Results last 24 hrs: Laboratory Results - last 24 hr 08/02/16 08/02/16 Range/Units 04:00 04:47 WBC 10.4 (4.5-11.0) K/uL RBC 4.23 L (4.30-5.90) M/uL Hgb 12.1 (12.0-15.0) g/dL Hct 37.9 L (40.0-54.0) % MCV 90 (80-98) fL MCH 29 (27-31) pg MCHC 32 (32-36) % Plt Count 468 H (150-400) K/uL Sodium 141 (140-148) mmol/L Potassium 4.2 (3.6-5.2) mmol/L Chloride 107 (100-108) mmol/L Carbon Dioxide 24 (21-32) mmol/L Anion Gap 9.6 (5.0-14.0) mmol/L BUN 21 H (7-18) mg/dL Creatinine 1.4 H (0.8-1.3) mg/dL Est Cr Clr Drug Dosing 55.17 mL/min Estimated GFR (MDRD) 51 L (>60) Glucose 96 (74-106) mg/dL Calcium 7.7 L (8.5-10.1) mg/dL Phosphorus 4.1 (2.5-4.9) mg/dL Total Bilirubin 0.5 (0.2-1.0) mg/dL AST 48 H (15-37) U/L ALT 107 H (12-78) U/L Alkaline Phosphatase 43 L (46-116) U/L Total Protein 6.6 (6.4-8.2) g/dL Albumin 2.3 L (3.4-5.0) g/dL Globulin 4.3 H (2.3-3.5) g/dL Albumin/Globulin Ratio 0.5 L (1.2-2.2) Boby Results last 24 hrs: Microbiology 07/30/16 13:45 Quick Strep Confirmation Culture - Final Throat NO GROUP A STREP ISOLATED Group A Streptococcus Rapid Screen - Final NEGATIVE STREP A SCREEN Med Orders - Current: Current Medications Acetaminophen (Tylenol) 650 mg GTUBE Q4H PRN PRN Reason: Pain (mild 1-3) Last Admin: 08/02/16 09:44 Dose: 650 mg Albuterol/Ipratropium (Duoneb 3.0-0.5 Mg/3 Ml) 3 ml INH QIDRT RUMA Last Admin: 08/02/16 11:17 Dose: 3 ml Albuterol/Ipratropium (Duoneb 3.0-0.5 Mg/3 Ml) 3 ml INH ASDIRECTED PRN PRN Reason: * Last Admin: 07/23/16 23:50 Dose: 3 ml Benzocaine/Menthol (Cepacol Sore Throat) 1 lozenge MUCMEM Q1H PRN PRN Reason: Pain Lidocaine HCl 30 ml/ Al Hydroxide/Mg Hydroxide 30 ml/Diphenhydramine HCl 75 mg 0 ml PO QID RUMA Last Admin: 08/02/16 09:44 Dose: 15 ml Dimethicone/Zinc Oxide (Rash Relief-Zinc Oxide [place]) 0 gm TOP ASDIRECTED PRN PRN Reason: Rash Heparin Sodium (Porcine) (Heparin Lock Flush 100 Units/Ml Syringe) 500 units FLUSH ASDIRECTED PRN PRN Reason: IV Use Last Admin: 08/01/16 10:04 Dose: 500 units Ciprofloxacin/Dextrose 400 mg/ (Premix) 200 mls @ 200 mls/hr IV Q12H [facility] Last Admin: 08/02/16 01:49 Dose: 200 mls/hr Magnesium Sulfate 2 gm/ Premix 50 mls @ 25 mls/hr IV Q6HR [facility] Stop: 08/03/16 05:59 Last Admin: 08/02/16 09:43 Dose: 25 mls/hr Lorazepam (Ativan) 1 mg PO Q4H PRN PRN Reason: Anxiety Last Admin: 08/01/16 23:00 Dose: 1 mg Losartan Potassium (Cozaar) 50 mg PO DAILY [facility] Last Admin: 08/02/16 09:45 Dose: 50 mg Naloxone HCl (Narcan) 0.1 mg IV ASDIRECTED PRN PRN Reason: decreased respiratory rate Nitroglycerin (Nitrostat) 0.4 mg SL Q5M PRN PRN Reason: CHEST PAIN Non-Formulary Medication (Total Parenteral Nutrition, Central) 1,000 ml .XX .Continue Order [facility] Stop: 08/02/16 16:00 Nystatin (Mycostatin) 5 ml PO QID [facility] Last Admin: 08/02/16 09:43 Dose: 5 ml Ondansetron HCl (Zofran) 4 mg IVPUSH Q4H PRN PRN Reason: NAUSEA Last Admin: 08/02/16 10:00 Dose: 4 mg Pantoprazole Sodium (Protonix) 40 mg PO BEDTIME [facility] Last Admin: 08/01/16 20:04 Dose: 40 mg Tamsulosin HCl (Flomax) 0.4 mg PO BEDTIME [facility] Last Admin: 08/01/16 20:04 Dose: 0.4 mg Tramadol HCl (Ultram) 50 - 100 mg PO Q4H PRN PRN Reason: Pain Last Admin: 08/02/16 09:42 Dose: 100 mg Discontinued Medications Acetaminophen (Tylenol) 650 mg PO Q4H PRN PRN Reason: Fever Last Admin: 07/26/16 19:54 Dose: 650 mg Acetaminophen (Tylenol) 650 mg PO Q4H PRN PRN Reason: Pain (mild 1-3) Last Admin: 07/29/16 00:39 Dose: 650 mg Acetaminophen (Tylenol) 650 mg PO Q4H PRN PRN Reason: Pain (mild 1-3) Albuterol (Proventil Neb Soln) 2.5 mg NEB Q4H PRN PRN Reason: Dyspnea Last Admin: 07/20/16 16:13 Dose: 2.5 mg Bacitracin (Bacitracin Oint) 0 gm TOP TID [facility] Last Admin: 07/20/16 13:58 Dose: 1 applic Bisacodyl (Dulcolax) 10 mg PO BID [facility] Last Admin: 07/20/16 09:22 Dose: 10 mg Bisacodyl (Dulcolax) 10 mg RECTAL BID PRN PRN Reason: Constipation Last Admin: 07/19/16 17:31 Dose: 10 mg Bisacodyl (Dulcolax) 20 mg PO ONETIME ONE Stop: 07/26/16 10:01 Last Admin: 07/26/16 09:09 Dose: 20 mg Bisacodyl (Dulcolax) 10 mg RECTAL BID [facility] Last Admin: 07/26/16 21:21 Dose: 10 mg Bisacodyl (Dulcolax) 10 mg RECTAL DAILY PRN PRN Reason: Constipation Bisacodyl (Dulcolax) 20 mg PO ONETIME ONE Stop: 07/29/16 10:01 Last Admin: 07/29/16 12:58 Dose: 20 mg Bupivacaine HCl (Marcaine 0.5%) Confirm Administered Dose 50 ml .ROUTE .STK-MED ONE Stop: 07/22/16 06:41 Last Admin: 07/22/16 07:34 Dose: 20 ml Bupivacaine HCl/Epinephrine Bitart (Marcaine 0.5%/Epinephrine 1:200,000) Confirm Administered Dose 50 ml .ROUTE .STK-MED ONE Stop: 07/16/16 06:43 Last Admin: 07/16/16 07:28 Dose: 10 ml Buspirone HCl (Buspar) 15 mg PO DAILY [facility] Last Admin: 07/20/16 09:21 Dose: 15 mg Buspirone HCl (Buspar) 7.5 mg PO QPM [facility] Last Admin: 07/20/16 17:57 Dose: Not Given Buspirone HCl (Buspar) 15 mg PO DAILY [facility] Last Admin: 07/29/16 10:59 Dose: 15 mg Buspirone HCl (Buspar) 7.5 mg PO BEDTIME [facility] Last Admin: 07/28/16 20:52 Dose: 7.5 mg Dexamethasone (Dexamethasone) Confirm Administered Dose 4 mg .ROUTE .STK-MED ONE Stop: 07/16/16 07:27 Dexamethasone (Dexamethasone) Confirm Administered Dose 4 mg .ROUTE .STK-MED ONE Stop: 07/20/16 16:44 Diatrizoate Meglum/Diatrizoate Sod (Gastrografin 37%) 1,200 ml .XX . DIRECTED [facility] Stop: 07/20/16 14:16 Last Admin: 07/20/16 15:27 Dose: 1,200 ml Diphenhydramine HCl (Benadryl) 25 mg PO BEDTIME PRN PRN Reason: Sleep Last Admin: 07/29/16 00:39 Dose: 25 mg Diphenhydramine HCl (Benadryl) 25 mg PO BEDTIME PRN PRN Reason: SLEEP Diphenhydramine HCl (Benadryl) 25 mg GTUBE BEDTIME PRN PRN Reason: SLEEP Docusate Sodium (Colace) 100 mg PO BID [facility] Last Admin: 07/28/16 20:52 Dose: 100 mg Docusate Sodium (Colace 50 Mg/5 Ml Liquid) 100 mg GTUBE BID [facility] Last Admin: 07/31/16 21:13 Dose: 100 mg Fentanyl (Sublimaze) Confirm Administered Dose 500 mcg .ROUTE .STK-MED ONE Stop: 07/16/16 07:27 Fentanyl (Sublimaze) Confirm Administered Dose 250 mcg .ROUTE .STK-MED ONE Stop: 07/16/16 09:21 Fentanyl (Duragesic) 25 mcg TRDERM Q72H [facility] Last Admin: 07/20/16 09:24 Dose: 25 mcg Fentanyl (Sublimaze) Confirm Administered Dose 250 mcg .ROUTE .STK-MED ONE Stop: 07/20/16 16:45 Fentanyl (Sublimaze) Confirm Administered Dose 250 mcg .ROUTE .STK-MED ONE Stop: 07/20/16 18:24 Fentanyl (Duragesic) 25 mcg TRDERM Q72H [facility] Last Admin: 07/20/16 22:18 Dose: Not Given Fentanyl (Duragesic) 25 mcg TRDERM Q72H [facility] Fentanyl (Sublimaze) Confirm Administered Dose 100 mcg .ROUTE .STK-MED ONE Stop: 07/22/16 07:04 Fentanyl (Duragesic) 50 mcg TRDERM Q72H [facility] Last Admin: 07/22/16 09:40 Dose: 50 mcg Furosemide (Lasix) 20 mg IVPUSH Q8H [facility] Last Admin: 07/24/16 15:59 Dose: Not Given Glycopyrrolate () Confirm Administered Dose 1 mg .ROUTE .STK-MED ONE Stop: 07/16/16 07:27 Glycopyrrolate () Confirm Administered Dose 1 mg .ROUTE .STK-MED ONE Stop: 07/20/16 16:44 Haloperidol Lactate (Haldol) 2.5 mg IVPUSH ONETIME ONE Stop: 07/23/16 06:18 Last Admin: 07/23/16 06:26 Dose: 2.5 mg Haloperidol Lactate (Haldol) 2.5 mg IVPUSH Q1H PRN PRN Reason: PSYCHOSIS/ANXIETY Last Admin: 07/23/16 18:10 Dose: 2.5 mg Heparin Sodium (Porcine) (Heparin Lock Flush 100 Units/Ml Syringe) Confirm Administered Dose 500 units .ROUTE .STK-MED ONE Stop: 07/20/16 17:25 Last Admin: 07/20/16 17:28 Dose: 500 units Heparin Sodium (Porcine) (Heparin Sodium) Confirm Administered Dose 5,000 units .ROUTE .STK-MED ONE Stop: 07/20/16 20:54 Last Admin: 07/20/16 21:06 Dose: 5,000 units Hydromorphone HCl (Dilaudid Clinical Trial Associate 15 Mg In Ns 30 Ml) 0 mg IV ASDIRECTED PRN; Protocol PRN Reason: Pain Last Admin: 07/16/16 07:37 Dose: 0.3 mg Hydromorphone HCl (Dilaudid Clinical Trial Associate 15 Mg In Ns 30 Ml) 0 mg IV ASDIRECTED PRN; Protocol PRN Reason: PAIN Last Admin: 07/20/16 07:38 Dose: 15 mg Hydromorphone HCl (Dilaudid Clinical Trial Associate 15 Mg In Ns 30 Ml) 0 mg IV ASDIRECTED PRN; Protocol PRN Reason: PAIN Last Admin: 07/21/16 07:19 Dose: 15 mg Hydromorphone HCl (Dilaudid) 0.5 - 1 mg IVPUSH Q2H PRN PRN Reason: Pain (severe 7-10) Last Admin: 07/27/16 00:30 Dose: 1 mg Hydroxyzine HCl (Vistaril) 100 mg IM Q4H PRN PRN Reason: Pain Last Admin: 07/20/16 14:41 Dose: 100 mg Hydroxyzine HCl (Vistaril) 100 mg IM Q4H PRN PRN Reason: PAIN Last Admin: 07/26/16 12:16 Dose: 100 mg Hydroxyzine HCl (Vistaril) 50 mg IM ONETIME ONE Stop: 07/22/16 06:14 Last Admin: 07/22/16 06:29 Dose: 50 mg Clindamycin Phosphate 900 mg/ (Sodium Chloride) 106 mls @ 212 mls/hr IV ONETIME ONE Stop: 07/16/16 07:59 Last Admin: 07/16/16 07:48 Dose: 212 mls/hr Dextrose/Lactated Ringer's (Dextrose 5%-Lactated Ringers) 1,000 mls @ 100 mls/ hr IV ASDIRECTED [facility] Last Admin: 07/16/16 07:37 Dose: 100 mls/hr Lactated Ringer's (Ringers, Lactated) Confirm Administered Dose 1,000 mls @ as directed .ROUTE .ST-MED ONE Stop: 07/16/16 09:17 Dextrose/Lactated Ringer's (Dextrose 5%-Lactated Ringers) 1,000 mls @ 150 mls/ hr IV ASDIRECTED [facility] Last Admin: 07/18/16 04:26 Dose: 150 mls/hr Cefazolin Sodium 2 gm/ Sodium (Chloride) 50 mls @ 100 mls/hr IV Q8H [facility] Stop: 07/17/16 06:29 Last Admin: 07/17/16 05:08 Dose: 100 mls/hr Dextrose/Lactated Ringer's (Dextrose 5%-Lactated Ringers) 1,000 mls @ 100 mls/ hr IV ASDIRECTED [facility] Last Admin: 07/19/16 14:53 Dose: 100 mls/hr Acetaminophen 1,000 mg/ Premix 100 mls @ 400 mls/hr IV Q6H PRN PRN Reason: PAIN Stop: 07/20/16 10:30 Acetaminophen 1,000 mg/ Premix 100 mls @ 400 mls/hr IV NOW ONE Stop: 07/20/16 07:32 Last Admin: 07/20/16 07:31 Dose: 400 mls/hr Lactated Ringer's (Ringers, Lactated) 1,000 mls @ 1,000 mls/hr IV ASDIRECTED [facility] Stop: 07/20/16 09:31 Last Admin: 07/20/16 09:10 Dose: 1,000 mls/hr Levofloxacin/Dextrose 500 mg/ (Premix) 100 mls @ 100 mls/hr IV Q24H [facility] Last Admin: 07/20/16 09:22 Dose: 100 mls/hr Acetaminophen 1,000 mg/ Premix 100 mls @ 400 mls/hr IV Q6H [facility] Last Admin: 07/20/16 22:20 Dose: 400 mls/hr Lactated Ringer's (Ringers, Lactated) 1,000 mls @ 250 mls/hr IV ASDIRECTED [facility] Stop: 07/20/16 14:01 Last Admin: 07/20/16 11:04 Dose: 250 mls/hr Meropenem 1 gm/ Sodium (Chloride) 50 mls @ 100 mls/hr IV Q8H [facility] Last Admin: 07/20/16 11:41 Dose: 100 mls/hr Lactated Ringer's (Ringers, Lactated) 1,000 mls @ 999 mls/hr IV BOLUS ONE Stop: 07/20/16 17:19 Last Admin: 07/20/16 21:10 Dose: 999 mls/hr Lactated Ringer's (Ringers, Lactated) Confirm Administered Dose 1,000 mls @ as directed .ROUTE .STK-MED ONE Stop: 07/20/16 18:26 Lactated Ringer's (Ringers, Lactated) Confirm Administered Dose 1,000 mls @ as directed .ROUTE .STK-MED ONE Stop: 07/20/16 18:27 Dextrose/Lactated Ringer's (Dextrose 5%-Lactated Ringers) 1,000 mls @ 100 mls/ hr IV ASDIRECTED [facility] Stop: 07/23/16 09:59 Last Admin: 07/23/16 00:19 Dose: 100 mls/hr Lactated Ringer's (Ringers, Lactated) 1,000 mls @ 100 mls/hr IV ASDIRECTED [facility] Stop: 07/21/16 17:59 Last Admin: 07/21/16 07:22 Dose: 100 mls/hr Aztreonam 1 gm/ Sodium (Chloride) 50 mls @ 100 mls/hr IV Q8HR [facility] Last Admin: 07/21/16 05:06 Dose: 100 mls/hr Meropenem 500 mg/ Sodium (Chloride) 50 mls @ 100 mls/hr IV Q8H [facility] Last Admin: 07/26/16 05:17 Dose: 100 mls/hr Acetaminophen 1,000 mg/ Premix 100 mls @ 400 mls/hr IV Q6H [facility] Stop: 07/21/16 16:14 Last Admin: 07/21/16 17:12 Dose: 400 mls/hr Aztreonam/Dextrose 1 gm/ (Premix) 50 mls @ 100 mls/hr IV Q8HR [facility] Last Admin: 07/25/16 05:52 Dose: 100 mls/hr Lactated Ringer's (Ringers, Lactated) 1,000 mls @ 40 mls/hr IV ASDIRECTED [facility] Lactated Ringer's (Ringers, Lactated) 1,000 mls @ 40 mls/hr IV ASDIRECTED [facility] Last Admin: 07/23/16 03:55 Dose: 40 mls/hr Albumin Human 12.5 gm/ Premix 50 mls @ 25 mls/hr IV Q24H [facility] Stop: 07/26/16 10:59 Last Admin: 07/26/16 09:09 Dose: 25 mls/hr Albumin Human 12.5 gm/ Premix 50 mls @ 25 mls/hr IV Q24H [facility] Stop: 07/26/16 12:59 Last Admin: 07/26/16 10:44 Dose: 25 mls/hr Albumin Human 12.5 gm/ Premix 50 mls @ 25 mls/hr IV Q24H [facility] Stop: 07/26/16 14:59 Last Admin: 07/26/16 12:45 Dose: 25 mls/hr Albumin Human 12.5 gm/ Premix 50 mls @ 25 mls/hr IV Q24H [facility] Stop: 07/26/16 16:59 Last Admin: 07/26/16 15:09 Dose: 25 mls/hr Multivitamins/Minerals 10 ml/Chromium/Copper/Manganese/Seleni/Zn 1 ml/ Amino Ac/ Electrol/Dextrose/Calcium 1,011 mls @ 82 mls/hr IV .BY DURATION [facility] Last Admin: 07/23/16 10:23 Dose: 82 mls/hr Amino Ac/Electrol/Dextrose/Calcium (Clinimix E 5/15) 1,000 mls @ 82 mls/hr IV .BY DURATION [facility] Last Admin: 07/23/16 22:44 Dose: 82 mls/hr Lactated Ringer's (Ringers, Lactated) 1,000 mls @ 0 mls/hr IV ASDIRECTED [facility] PRN Reason: KVO Last Admin: 07/24/16 19:59 Dose: 25 mls/hr Acetaminophen 1,000 mg/ Premix 100 mls @ 400 mls/hr IV Q6H PRN PRN Reason: Pain Stop: 07/24/16 23:18 Last Admin: 07/24/16 20:14 Dose: 400 mls/hr Potassium Chloride 40 meq/ (Premix) 100 mls @ 25 mls/hr IV ONETIME ONE Stop: 07/24/16 12:29 Last Admin: 07/24/16 08:56 Dose: 25 mls/hr Potassium Chloride 20 meq/ (Premix) 100 mls @ 50 mls/hr IV ONETIME ONE Stop: 07/24/16 14:59 Last Admin: 07/24/16 12:31 Dose: 50 mls/hr Multivitamins/Minerals 10 ml/Chromium/Copper/Manganese/Seleni/Zn 1 ml/ Amino Ac/ Electrol/Dextrose/Calcium 1,011 mls @ 82 mls/hr IV .BY DURATION [facility] Last Admin: 07/25/16 13:40 Dose: 82 mls/hr Amino Ac/Electrol/Dextrose/Calcium (Clinimix E 5/15) 1,000 mls @ 82 mls/hr IV .BY DURATION [facility] Last Admin: 07/26/16 00:18 Dose: 82 mls/hr Lactated Ringer's (Ringers, Lactated) 1,000 mls @ 25 mls/hr IV ASDIRECTED [facility] PRN Reason: KVO Acetaminophen 1,000 mg/ Premix 100 mls @ 400 mls/hr IV Q6H PRN PRN Reason: Pain Stop: 07/26/16 05:10 Last Admin: 07/26/16 03:58 Dose: 400 mls/hr Vancomycin HCl 1.75 gm/ Sodium (Chloride) 250 mls @ 167 mls/hr IV ONETIME ONE Stop: 07/25/16 12:29 Last Admin: 07/25/16 11:35 Dose: 167 mls/hr Vancomycin HCl 1.5 gm/ Sodium (Chloride) 250 mls @ 167 mls/hr IV Q12H [facility] Last Admin: 07/26/16 22:58 Dose: 167 mls/hr Fluconazole/Sodium Chloride (200 mg/ Premix) 100 mls @ 100 mls/hr IV Q24H [facility] Last Admin: 08/01/16 10:04 Dose: 100 mls/hr Ceftriaxone Sodium 2 gm/ (Sodium Chloride) 50 mls @ 100 mls/hr IV Q24H [facility] Last Admin: 07/30/16 13:05 Dose: 100 mls/hr Multivitamins/Minerals 10 ml/Chromium/Copper/Manganese/Seleni/Zn 1 ml/ Amino Ac/ Electrol/Dextrose/Calcium 1,011 mls @ 82 mls/hr IV .BY DURATION [facility] Stop: 07/30/16 14:56 Last Admin: 07/29/16 17:10 Dose: 82 mls/hr Amino Ac/Electrol/Dextrose/Calcium (Clinimix E 5/15) 1,000 mls @ 82 mls/hr IV .BY DURATION [facility] Stop: 07/30/16 14:56 Last Admin: 07/30/16 05:43 Dose: 82 mls/hr Acetaminophen 1,000 mg/ Premix 100 mls @ 400 mls/hr IV Q6H PRN PRN Reason: Pain Stop: 07/27/16 23:45 Last Admin: 07/27/16 15:33 Dose: 400 mls/hr Vancomycin HCl 1.7 gm/ Sodium (Chloride) 250 mls @ 167 mls/hr IV Q12H [facility] Last Admin: 07/29/16 23:37 Dose: 167 mls/hr Sodium Chloride (Normal Saline) 85 mls @ 3 mls/sec IV ASDIRECTED [facility] Last Admin: 07/30/16 03:03 Dose: 3 mls/sec Multivitamins/Minerals 10 ml/Chromium/Copper/Manganese/Seleni/Zn 1 ml/ Amino Ac/ Electrol/Dextrose/Calcium 1,011 mls @ 82 mls/hr IV .BY DURATION [facility] Stop: 08/01/16 16:00 Last Admin: 07/31/16 19:11 Dose: 82 mls/hr Amino Ac/Electrol/Dextrose/Calcium (Clinimix E 5/15) 1,000 mls @ 82 mls/hr IV .BY DURATION [facility] Stop: 08/01/16 16:00 Last Admin: 08/01/16 07:33 Dose: 82 mls/hr Vancomycin HCl 1.5 gm/ Sodium (Chloride) 250 mls @ 167 mls/hr IV Q12H [facility] Last Admin: 08/02/16 04:03 Dose: 167 mls/hr Metronidazole 500 mg/ Premix 100 mls @ 100 mls/hr IV Q8H [facility] Last Admin: 08/02/16 08:10 Dose: Not Given Multivitamins/Minerals 10 ml/Chromium/Copper/Manganese/Seleni/Zn 1 ml/ Amino Ac/ Electrol/Dextrose/Calcium 1,011 mls @ 40 mls/hr IV .BY DURATION [facility] Amino Ac/Electrol/Dextrose/Calcium (Clinimix E 515) 1,000 mls @ 40 mls/hr IV .BY DURATION [facility] Iopamidol (Isovue-300 (61%)) 150 ml IV . DIRECTED [facility] Stop: 07/30/16 02:31 Last Admin: 07/30/16 03:03 Dose: 150 ml Ketorolac Tromethamine (Toradol) 60 mg IM ONETIME ONE Stop: 07/19/16 17:04 Last Admin: 07/19/16 17:30 Dose: 60 mg Labetalol HCl (Normodyne) 5 - 10 mg IV Q2H PRN PRN Reason: BP Last Admin: 07/25/16 05:19 Dose: 10 mg Labetalol HCl (Normodyne) Confirm Administered Dose 20 mg .ROUTE .STK-MED ONE Stop: 07/25/16 05:16 Last Admin: 07/25/16 08:49 Dose: Not Given Labetalol HCl (Normodyne) 0 mg IV Q2H PRN PRN Reason: BP Last Admin: 07/26/16 11:21 Dose: 10 mg Lidocaine HCl (Xylocaine 2% Jelly) 10 ml MUCMEM ONETIME ONE Stop: 07/16/16 21:15 Last Admin: 07/16/16 21:41 Dose: 10 ml Lidocaine/Epinephrine (Xylocaine 1% With Epinephrine 1:100,000) Confirm Administered Dose 50 ml .ROUTE .STK-MED ONE Stop: 07/22/16 06:41 Last Admin: 07/22/16 07:34 Dose: 20 ml Lorazepam (Ativan) 0.5 - 1 mg IVPUSH Q4H PRN PRN Reason: Anxiety Lorazepam (Ativan) 0.5 mg IVPUSH Q2H PRN PRN Reason: Anxiety Last Admin: 07/23/16 16:53 Dose: 0.5 mg Lorazepam (Ativan) 0.5 mg PO Q4H PRN PRN Reason: Anxiety Last Admin: 08/01/16 05:30 Dose: 0.5 mg Losartan Potassium (Cozaar) 50 mg PO DAILY [facility] Last Admin: 07/20/16 09:21 Dose: 50 mg Magnesium Citrate (Citrate Of Magnesia) 296 ml PO ONETIME ONE Stop: 07/18/16 09:01 Last Admin: 07/18/16 10:55 Dose: 296 ml Magnesium Hydroxide (Milk Of Magnesia) 30 ml PO ONETIME ONE Stop: 07/19/16 08:46 Last Admin: 07/19/16 10:27 Dose: 30 ml Magnesium Hydroxide (Milk Of Magnesia) 30 ml PO ONETIME ONE Stop: 07/26/16 09:01 Last Admin: 07/26/16 09:09 Dose: 30 ml Magnesium Hydroxide (Milk Of Magnesia) 30 ml PO Q4H PRN PRN Reason: Constipation Magnesium Hydroxide (Milk Of Magnesia) 30 ml PO ONETIME ONE Stop: 07/29/16 09:01 Last Admin: 07/29/16 11:00 Dose: 30 ml Meperidine HCl (Demerol) 100 mg IM ONETIME ONE Stop: 07/20/16 16:01 Last Admin: 07/20/16 16:05 Dose: 100 mg Meperidine HCl (Demerol) 100 mg IM ONETIME ONE Stop: 07/22/16 06:14 Last Admin: 07/22/16 06:28 Dose: 100 mg Meropenem (Merrem) Confirm Administered Dose 500 mg .ROUTE .STK-MED ONE Stop: 07/16/16 06:43 Last Admin: 07/16/16 09:25 Dose: 500 mg Meropenem (Merrem) Confirm Administered Dose 2,000 mg .ROUTE .STK-MED ONE Stop: 07/20/16 17:25 Last Admin: 07/20/16 17:25 Dose: 2,000 mg Meropenem (Merrem) Confirm Administered Dose 500 mg .ROUTE .[facility]-MED ONE Stop: 07/22/16 06:41 Last Admin: 07/22/16 07:34 Dose: 500 mg Midazolam HCl (Versed 1 Mg/Ml) Confirm Administered Dose 2 mg .ROUTE .[facility]-MED ONE Stop: 07/20/16 16:46 Midazolam HCl (Versed 1 Mg/Ml) Confirm Administered Dose 2 mg .ROUTE .[facility] ONE Stop: 07/22/16 07:04 Morphine Sulfate (Morphine Clinical Trial Associate 150 Mg In 30 Ml) 150 mg IV ASDIRECTED [facility] PRN Reason: Protocol Last Admin: 07/22/16 06:49 Dose: 150 mg Morphine Sulfate (Morphine Clinical Trial Associate 150 Mg In 30 Ml) 0 mg IV ASDIRECTED PRN; Protocol PRN Reason: PAIN Last Admin: 07/26/16 03:12 Dose: 150 mg Naloxone HCl (Narcan) 0.1 mg IV ASDIRECTED PRN PRN Reason: decreased respiratory rate Naloxone HCl (Narcan) 0.1 mg IV ASDIRECTED PRN PRN Reason: decreased respiratory rate Naloxone HCl (Narcan) Confirm Administered Dose 0.4 mg .ROUTE .[facility] ONE Stop: 07/20/16 20:01 Naloxone HCl (Narcan) 0.1 mg IV ASDIRECTED PRN PRN Reason: decreased respiratory rate Neostigmine Methylsulfate (Neostigmine) Confirm Administered Dose 5 mg .ROUTE .[facility] ONE Stop: 07/16/16 07:27 Neostigmine Methylsulfate (Neostigmine) Confirm Administered Dose 5 mg .ROUTE .[facility] ONE Stop: 07/20/16 16:44 Nitroglycerin (Nitrostat) 0.4 mg SL Q5M PRN PRN Reason: CHEST PAIN Fentanyl Patch Check 0 each TOP DAILY [facility] Last Admin: 07/20/16 09:27 Dose: 1 each Fentanyl Patch Check 0 each TOP DAILY@2200 [facility] Last Admin: 07/20/16 22:19 Dose: Not Given Verify Fentanyl (Patch) 0 each TOP BID [facility] Last Admin: 07/24/16 23:12 Dose: Not Given Non-Formulary Medication (Total Parenteral Nutrition, Central) 1,000 ml .XX .Continue Order [facility] Stop: 07/27/16 16:00 Non-Formulary Medication (Total Parenteral Nutrition, Central) 1,000 ml .XX .Continue Order [facility] Stop: 07/29/16 23:00 Non-Formulary Medication (Total Parenteral Nutrition, Central) 1,000 ml .XX .Continue Order [facility] Stop: 07/30/16 14:00 Non-Formulary Medication (Total Parenteral Nutrition, Central) 1,000 ml .XX .Continue Order [facility] Stop: 07/31/16 14:00 Non-Formulary Medication (Total Parenteral Nutrition, Central) 1,000 ml .XX .Continue Order [facility] Stop: 08/01/16 14:00 Ondansetron HCl (Zofran) Confirm Administered Dose 4 mg .ROUTE .[facility] ONE Stop: 07/16/16 07:27 Ondansetron HCl (Zofran) 4 mg IVPUSH Q4H PRN PRN Reason: NAUSEA Last Admin: 07/17/16 10:56 Dose: 4 mg Ondansetron HCl (Zofran) Confirm Administered Dose 4 mg .ROUTE .STK-[facility] ONE Stop: 07/20/16 16:44 Oxycodone HCl (Oxycodone) 5 - 10 mg PO Q4H PRN PRN Reason: Pain Last Admin: 07/28/16 12:27 Dose: 10 mg Oxycodone/Acetaminophen (Percocet 325-5 Mg) 1 - 2 tab PO Q4H PRN PRN Reason: PAIN Last Admin: 07/20/16 03:34 Dose: 2 tab Pantoprazole Sodium (Protonix Iv) 40 mg IV Q24H [facility] Last Admin: 07/25/16 20:56 Dose: 40 mg Polyethylene Glycol (Miralax) 119 gm PO ONETIME ONE Stop: 07/20/16 10:01 Last Admin: 07/20/16 09:35 Dose: 119 gm Propofol (Diprivan 20 Ml) Confirm Administered Dose 200 mg .ROUTE .STK-MED ONE Stop: 07/16/16 07:27 Propofol (Diprivan 20 Ml) Confirm Administered Dose 200 mg .ROUTE .STK-MED ONE Stop: 07/20/16 16:44 Propofol (Diprivan 20 Ml) Confirm Administered Dose 200 mg .ROUTE .STK-MED ONE Stop: 07/22/16 07:04 Rocuronium [place] (Zemuron) Confirm Administered Dose 50 mg .ROUTE .STK-MED ONE Stop: 07/16/16 07:27 Rocuronium [place] (Zemuron) Confirm Administered Dose 50 mg .ROUTE .STK-MED ONE Stop: 07/20/16 16:44 Rocuronium [place] (Zemuron) Confirm Administered Dose 50 mg .ROUTE .STK-MED ONE Stop: 07/20/16 18:24 Sodium Chloride (Saline Flush) 10 ml IV ASDIRECTED PRN PRN Reason: LINE FLUSH Sodium Chloride (Saline Flush) 10 ml FLUSH ONETIME ONE Stop: 07/30/16 02:22 Last Admin: 07/30/16 03:03 Dose: 10 ml Succinylcholine Chloride (Succinylcholine In Ns Pf) Confirm Administered Dose 200 mg .ROUTE .STK-MED ONE Stop: 07/16/16 07:27 Succinylcholine Chloride (Succinylcholine In Ns Pf) Confirm Administered Dose 200 mg .ROUTE .STK-MED ONE Stop: 07/20/16 16:44 Tamsulosin HCl (Flomax) 0.4 mg PO BEDTIME [facility] Last Admin: 07/19/16 21:18 Dose: 0.4 mg Tamsulosin HCl (Flomax) 0.4 mg PO ONETIME ONE Stop: 07/17/16 09:01 Last Admin: 07/17/16 10:18 Dose: 0.4 mg Tamsulosin HCl (Flomax) 0.4 mg PO ONETIME ONE Stop: 07/24/16 08:31 Last Admin: 07/24/16 09:06 Dose: 0.4 mg Vancomycin HCl (Vancomycin) 1 gm IV .PHARMACY TO [facility] Stop: 07/25/16 12:00 - Exam General: alert, oriented, cooperative, no acute distress Lungs: Clear to auscultation, Normal respiratory effort Cardiovascular: Regular Rate, Regular Rhythm, No Murmurs Abdomen: bowel sounds present, soft, tenderness. No: rigidity, rebound, guarding, distension Extremities: no edema Skin: warm, dry, intact - Problem List Review Problem List Initiated/Reviewed/Updated: Yes - Plan Plan:: ASSESSMENT AND RECOMMENDATIONS Delirium and hallucinations - continues to have intermittent episodes of confusion and hallucinations. These do seem to be slowly improving and are likely secondary to medication effect. CT scan of the head was obtained and showed no significant abnormalities -Monitor closely Probable wound infection - clinically improving with fluconazole, drainage has been decreasing daily. No evidence for abscess on CT. -continue fluconazole for 7 days -continue oral oxycodone with as needed hydromorphone -Followup blood and wound cultures SEPSIS SECONDARY TO INTESTINAL PERFORATION - status post delayed primary closure done 07/24, hemodynamically stable. Cultures from surgery are growing enterococcus and Escherichia coli. Abdominal pain improving each day. -Postoperative care per surgical team -followup cultures -continue current antibiotics -nutritional support with TPN Thrush - pain and exam both continue to improve with current cares -Continue oral nystatin and Magic mouthwash ACUTE KIDNEY INJURY - likely secondary to hypotension related to sepsis, renal function has improved and has been stable for several days with good urine output. -Continue to monitor urine output and renal function closely STATUS POST ABDOMINAL WALL HERNIA REPAIR - bowels have been moving but appetite is not good. Appetite improving each day. -continue full liquids -try to wean TPN as able CORONARY ARTERY DISEASE-asymptomatic
[2016-08-02] MEDS: Tamsulosin 0.4 MG Cap.ER PO SCH (22:40)
[2016-08-02] MEDS: Pantoprazole 40 MG Tab.CR PO SCH (22:40)
[2016-08-02] MEDS: LORazepam 1 MG Tab PO PRN (22:47)
[2016-08-03] MEDS: Acetaminophen Soln 650 MG/20.3 ML UD Cup GTUBE PRN (02:08)
[2016-08-03] MEDS: Ciprofloxacin in D5W 400 MG in Premix Bag 1 BAG IV SCH ×4 (02:09→13:54)
[2016-08-03] MEDS: traMADol 50 MG Tab PO PRN ×2 (02:42→11:22)
[2016-08-03] MEDS: Magnesium Sulfate/Water 2 GM in Premix Bag 1 BAG IV SCH (04:05)
[2016-08-03] MEDS: Lidocaine 2% 30 ML, Alum Hydrox/Mag Hydrox/Simeth 30 ML, diphenhydrAMINE 75 MG PO SCH ×9 (05:28→16:06)
[2016-08-03] MEDS: Nystatin Susp 100,000 Unit/ML 5 ML UD Cup PO SCH ×4 (05:28→21:13)
[2016-08-03] MEDS: LORazepam 1 MG Tab PO PRN (05:37)
[2016-08-03] MEDS: Albuterol/Ipratropium 3.0-0.5 MG/3 ML Neb Soln INH SCH ×4 (07:26→21:13)
[2016-08-03] MEDS ORDERED: Dextrose 5%-Lactated Ringers 1,000 ML IV SCH (08:30)
[2016-08-03] MEDS: Losartan 50 MG Tab PO SCH (08:45)
--- NOTE | 2016-08-03 09:00 | PN ---
DATE OF SERVICE: 08/03/2016 The patient has had T-max 102. Vital signs otherwise were stable. I suspect this fever is coming from his wound. We did some blood cultures last night and then opened up the wound. The upper and lower aspects had some deeper purulent material, and were fully opened. The underlying fascia appeared to be otherwise intact. The oral intake was fairly good at 970 yesterday. His creatinine is up a little bit, so I think we will give him some additional IV fluid today in addition to the oral intake and then begin wound care. We will await the Gram stains and the cultures were obtained, and probably adjust the antibiotics, although at this point, he does appear to have a lot of probably cellulitis, but with the fever, certainly the Gram stain culture results would warrant systemic antibiotics, lysis of adhesions, maximize activity, and work with pulmonary toilet. We will need to keep an eye on the central line issue as well. If the fever is going to come down, probably we need to get the central line out empirically. I did have some blood cultures drawn last night, and they are thus far not growing anything. Sg Youngblood MD /[id number]
[2016-08-03] MEDS: Linezolid 600 MG in Premix Bag 1 BAG IV SCH ×2 (12:32→23:35)
[2016-08-03] MEDS ORDERED: Ibuprofen 600 MG Tab PO SCH (14:00)
[2016-08-03] MEDS: Lactated Ringers 1,000 ML IV SCH ×3 (18:02→22:30)
--- NOTE | 2016-08-03 18:08 | PCM.PN ---
- General Info Date of Service: 08/03/16 Functional Status: Reports: pain controlled, tolerating diet, ambulating - Review of Systems General: Reports: Fever, Weakness, Chills, Appetite Pulmonary: Reports: no symptoms Cardiovascular: Reports: No Symptoms Gastrointestinal: Reports: Abdominal pain, Flatus. Denies: Diarrhea, Difficulty swallowing, Nausea, Vomiting Musculoskeletal: Reports: no symptoms Skin: Reports: no symptoms Psychiatric: Reports: confusion Systems Review Comment:: This patient has unfortunately developed recurrent temperature elevation over the past 24 hours. He is felt to have a wound infection with associated cellulitis. During the day today began to look somewhat septic with recurrent temperature elevation, elevated heart rate, and increasing respiratory rate. Creatinine level is increased over the past few days. Lactic acid level is within normal range, blood cultures and wound cultures have been obtained. He was started on IV Zyvox this morning. - Patient Data Vitals - most recent: Last Vital Signs Temp 97.7 F 08/03/16 16:55 Pulse 89 08/03/16 16:55 Resp 20 08/03/16 16:55 BP 110/63 08/03/16 16:55 Pulse Ox 96 08/03/16 15:09 Weight - most recent: 234 lb 9 oz I&O - last 24 hours: Intake & Output 08/03/16 08/03/16 08/03/16 06:59 14:59 22:59 Intake Total 540 400 124 Output Total 300 Balance 240 400 124 Lab Results last 24 hrs: Laboratory Results - last 24 hr 08/03/16 08/03/16 08/03/16 Range/Units 04:45 04:45 17:03 WBC 12.9 H (4.5-11.0) K/uL RBC 4.42 (4.30-5.90) M/uL Hgb 12.8 (12.0-15.0) g/dL Hct 39.2 L (40.0-54.0) % MCV 89 (80-98) fL MCH 29 (27-31) pg MCHC 33 (32-36) % Plt Count 470 H (150-400) K/uL Sodium 137 L (140-148) mmol/L Potassium 4.9 (3.6-5.2) mmol/L Chloride 105 (100-108) mmol/L Carbon Dioxide 22 (21-32) mmol/L Anion Gap 14.9 H (5.0-14.0) mmol/L BUN 21 H (7-18) mg/dL Creatinine 1.6 H (0.8-1.3) mg/dL Est Cr Clr Drug Dosing 48.28 mL/min Estimated GFR (MDRD) 44 L (>60) Glucose 102 (74-106) mg/dL Lactic Acid 1.2 (0.4-2.0) mmol/L Calcium 7.6 L (8.5-10.1) mg/dL Total Bilirubin 0.6 (0.2-1.0) mg/dL AST 36 (15-37) U/L ALT 89 H (12-78) U/L Alkaline Phosphatase 44 L (46-116) U/L Total Protein 6.9 (6.4-8.2) g/dL Albumin 2.3 L (3.4-5.0) g/dL Globulin 4.6 H (2.3-3.5) g/dL Albumin/Globulin Ratio 0.5 L (1.2-2.2) Boby Results last 24 hrs: Microbiology 08/03/16 08:18 Gram Stain - Final Abdomen - Incision 08/03/16 08:18 Gram Stain - Final Abdomen - Incision Med Orders - Current: Current Medications Acetaminophen (Tylenol) 650 mg PO Q4H PRN PRN Reason: Pain Albuterol/Ipratropium (Duoneb 3.0-0.5 Mg/3 Ml) 3 ml INH QIDRT [facility] Last Admin: 08/03/16 15:08 Dose: 3 ml Benzocaine/Menthol (Cepacol Sore Throat) 1 lozenge MUCMEM Q1H PRN PRN Reason: Pain Dimethicone/Zinc Oxide (Rash Relief-Zinc Oxide Wheeler) 0 gm TOP ASDIRECTED PRN PRN Reason: Rash Heparin Sodium (Porcine) (Heparin Lock Flush 100 Units/Ml Syringe) 500 units FLUSH ASDIRECTED PRN PRN Reason: IV Use Last Admin: 08/03/16 04:45 Dose: 500 units Linezolid 600 mg/ Premix 300 mls @ 300 mls/hr IV Q12H [facility] Last Admin: 08/03/16 12:32 Dose: 300 mls/hr Aztreonam/Dextrose 1 gm/ (Premix) 50 mls @ 100 mls/hr IV Q8H RUMA Lactated Ringer's (Ringers, Lactated) 1,000 mls @ 500 mls/hr IV ASDIRECTED RUMA Stop: 08/03/16 21:31 Lactated Ringer's (Ringers, Lactated) 1,000 mls @ 125 mls/hr IV ASDIRECTED [facility] Meropenem 1 gm/ Sodium (Chloride) 50 mls @ 100 mls/hr IV Q8H RUMA Lorazepam (Ativan) 1 mg PO Q4H PRN PRN Reason: Anxiety Last Admin: 08/03/16 05:37 Dose: 1 mg Losartan Potassium (Cozaar) 50 mg PO DAILY [facility] Last Admin: 08/03/16 08:45 Dose: 50 mg Naloxone HCl (Narcan) 0.1 mg IV ASDIRECTED PRN PRN Reason: decreased respiratory rate Nitroglycerin (Nitrostat) 0.4 mg SL Q5M PRN PRN Reason: CHEST PAIN Nystatin (Mycostatin) 5 ml PO QID [facility] Last Admin: 08/03/16 16:05 Dose: 5 ml Ondansetron HCl (Zofran) 4 mg IVPUSH Q4H PRN PRN Reason: NAUSEA Last Admin: 08/02/16 10:00 Dose: 4 mg Pantoprazole Sodium (Protonix) 40 mg PO BEDTIME [facility] Last Admin: 08/02/16 22:40 Dose: 40 mg Tamsulosin HCl (Flomax) 0.4 mg PO BEDTIME [facility] Last Admin: 08/02/16 22:40 Dose: 0.4 mg Discontinued Medications Acetaminophen (Tylenol) 650 mg PO Q4H PRN PRN Reason: Fever Last Admin: 07/26/16 19:54 Dose: 650 mg Acetaminophen (Tylenol) 650 mg PO Q4H PRN PRN Reason: Pain (mild 1-3) Last Admin: 07/29/16 00:39 Dose: 650 mg Acetaminophen (Tylenol) 650 mg PO Q4H PRN PRN Reason: Pain (mild 1-3) Acetaminophen (Tylenol) 650 mg GTUBE Q4H PRN PRN Reason: Pain (mild 1-3) Last Admin: 08/03/16 02:08 Dose: 650 mg Albuterol (Proventil Neb Soln) 2.5 mg NEB Q4H PRN PRN Reason: Dyspnea Last Admin: 07/20/16 16:13 Dose: 2.5 mg Albuterol/Ipratropium (Duoneb 3.0-0.5 Mg/3 Ml) 3 ml INH ASDIRECTED PRN PRN Reason: * Last Admin: 07/23/16 23:50 Dose: 3 ml Bacitracin (Bacitracin Oint) 0 gm TOP TID [facility] Last Admin: 07/20/16 13:58 Dose: 1 applic Bisacodyl (Dulcolax) 10 mg PO BID [facility] Last Admin: 07/20/16 09:22 Dose: 10 mg Bisacodyl (Dulcolax) 10 mg RECTAL BID PRN PRN Reason: Constipation Last Admin: 07/19/16 17:31 Dose: 10 mg Bisacodyl (Dulcolax) 20 mg PO ONETIME ONE Stop: 07/26/16 10:01 Last Admin: 07/26/16 09:09 Dose: 20 mg Bisacodyl (Dulcolax) 10 mg RECTAL BID [facility] Last Admin: 07/26/16 21:21 Dose: 10 mg Bisacodyl (Dulcolax) 10 mg RECTAL DAILY PRN PRN Reason: Constipation Bisacodyl (Dulcolax) 20 mg PO ONETIME ONE Stop: 07/29/16 10:01 Last Admin: 07/29/16 12:58 Dose: 20 mg Bupivacaine HCl (Marcaine 0.5%) Confirm Administered Dose 50 ml .ROUTE .STK-MED ONE Stop: 07/22/16 06:41 Last Admin: 07/22/16 07:34 Dose: 20 ml Bupivacaine HCl/Epinephrine Bitart (Marcaine 0.5%/Epinephrine 1:200,000) Confirm Administered Dose 50 ml .ROUTE .STK-MED ONE Stop: 07/16/16 06:43 Last Admin: 07/16/16 07:28 Dose: 10 ml Buspirone HCl (Buspar) 15 mg PO DAILY [facility] Last Admin: 07/20/16 09:21 Dose: 15 mg Buspirone HCl (Buspar) 7.5 mg PO QPM [facility] Last Admin: 07/20/16 17:57 Dose: Not Given Buspirone HCl (Buspar) 15 mg PO DAILY [facility] Last Admin: 07/29/16 10:59 Dose: 15 mg Buspirone HCl (Buspar) 7.5 mg PO BEDTIME [facility] Last Admin: 07/28/16 20:52 Dose: 7.5 mg Lidocaine HCl 30 ml/ Al Hydroxide/Mg Hydroxide 30 ml/Diphenhydramine HCl 75 mg 0 ml PO QID [facility] Last Admin: 08/03/16 16:06 Dose: 15 ml Dexamethasone (Dexamethasone) Confirm Administered Dose 4 mg .ROUTE .STK-MED ONE Stop: 07/16/16 07:27 Dexamethasone (Dexamethasone) Confirm Administered Dose 4 mg .ROUTE .STK-MED ONE Stop: 07/20/16 16:44 Diatrizoate Meglum/Diatrizoate Sod (Gastrografin 37%) 1,200 ml .XX . DIRECTED [facility] Stop: 07/20/16 14:16 Last Admin: 07/20/16 15:27 Dose: 1,200 ml Diphenhydramine HCl (Benadryl) 25 mg PO BEDTIME PRN PRN Reason: Sleep Last Admin: 07/29/16 00:39 Dose: 25 mg Diphenhydramine HCl (Benadryl) 25 mg PO BEDTIME PRN PRN Reason: SLEEP Diphenhydramine HCl (Benadryl) 25 mg GTUBE BEDTIME PRN PRN Reason: SLEEP Docusate Sodium (Colace) 100 mg PO BID [facility] Last Admin: 07/28/16 20:52 Dose: 100 mg Docusate Sodium (Colace 50 Mg/5 Ml Liquid) 100 mg GTUBE BID [facility] Last Admin: 07/31/16 21:13 Dose: 100 mg Fentanyl (Sublimaze) Confirm Administered Dose 500 mcg .ROUTE .ST-MED ONE Stop: 07/16/16 07:27 Fentanyl (Sublimaze) Confirm Administered Dose 250 mcg .ROUTE .STK-MED ONE Stop: 07/16/16 09:21 Fentanyl (Duragesic) 25 mcg TRDERM Q72H [facility] Last Admin: 07/20/16 09:24 Dose: 25 mcg Fentanyl (Sublimaze) Confirm Administered Dose 250 mcg .ROUTE .STK-MED ONE Stop: 07/20/16 16:45 Fentanyl (Sublimaze) Confirm Administered Dose 250 mcg .ROUTE .STK-MED ONE Stop: 07/20/16 18:24 Fentanyl (Duragesic) 25 mcg TRDERM Q72H [facility] Last Admin: 07/20/16 22:18 Dose: Not Given Fentanyl (Duragesic) 25 mcg TRDERM Q72H RUMA Fentanyl (Sublimaze) Confirm Administered Dose 100 mcg .ROUTE .STK-MED ONE Stop: 07/22/16 07:04 Fentanyl (Duragesic) 50 mcg TRDERM Q72H RUMA Last Admin: 07/22/16 09:40 Dose: 50 mcg Furosemide (Lasix) 20 mg IVPUSH Q8H [facility] Last Admin: 07/24/16 15:59 Dose: Not Given Glycopyrrolate () Confirm Administered Dose 1 mg .ROUTE .STK-MED ONE Stop: 07/16/16 07:27 Glycopyrrolate () Confirm Administered Dose 1 mg .ROUTE .STK-MED ONE Stop: 07/20/16 16:44 Haloperidol Lactate (Haldol) 2.5 mg IVPUSH ONETIME ONE Stop: 07/23/16 06:18 Last Admin: 07/23/16 06:26 Dose: 2.5 mg Haloperidol Lactate (Haldol) 2.5 mg IVPUSH Q1H PRN PRN Reason: PSYCHOSIS/ANXIETY Last Admin: 07/23/16 18:10 Dose: 2.5 mg Heparin Sodium (Porcine) (Heparin Lock Flush 100 Units/Ml Syringe) Confirm Administered Dose 500 units .ROUTE .STK-MED ONE Stop: 07/20/16 17:25 Last Admin: 07/20/16 17:28 Dose: 500 units Heparin Sodium (Porcine) (Heparin Sodium) Confirm Administered Dose 5,000 units .ROUTE .STK-MED ONE Stop: 07/20/16 20:54 Last Admin: 07/20/16 21:06 Dose: 5,000 units Hydromorphone HCl (Dilaudid Live In Caregiver 15 Mg In Ns 30 Ml) 0 mg IV ASDIRECTED PRN; Protocol PRN Reason: Pain Last Admin: 07/16/16 07:37 Dose: 0.3 mg Hydromorphone HCl (Dilaudid Live In Caregiver 15 Mg In Ns 30 Ml) 0 mg IV ASDIRECTED PRN; Protocol PRN Reason: PAIN Last Admin: 07/20/16 07:38 Dose: 15 mg Hydromorphone HCl (Dilaudid Live In Caregiver 15 Mg In Ns 30 Ml) 0 mg IV ASDIRECTED PRN; Protocol PRN Reason: PAIN Last Admin: 07/21/16 07:19 Dose: 15 mg Hydromorphone HCl (Dilaudid) 0.5 - 1 mg IVPUSH Q2H PRN PRN Reason: Pain (severe 7-10) Last Admin: 07/27/16 00:30 Dose: 1 mg Hydroxyzine HCl (Vistaril) 100 mg IM Q4H PRN PRN Reason: Pain Last Admin: 07/20/16 14:41 Dose: 100 mg Hydroxyzine HCl (Vistaril) 100 mg IM Q4H PRN PRN Reason: PAIN Last Admin: 07/26/16 12:16 Dose: 100 mg Hydroxyzine HCl (Vistaril) 50 mg IM ONETIME ONE Stop: 07/22/16 06:14 Last Admin: 07/22/16 06:29 Dose: 50 mg Clindamycin Phosphate 900 mg/ (Sodium Chloride) 106 mls @ 212 mls/hr IV ONETIME ONE Stop: 07/16/16 07:59 Last Admin: 07/16/16 07:48 Dose: 212 mls/hr Dextrose/Lactated Ringer's (Dextrose 5%-Lactated Ringers) 1,000 mls @ 100 mls/ hr IV ASDIRECTED [facility] Last Admin: 07/16/16 07:37 Dose: 100 mls/hr Lactated Ringer's (Ringers, Lactated) Confirm Administered Dose 1,000 mls @ as directed .ROUTE .STK-MED ONE Stop: 07/16/16 09:17 Dextrose/Lactated Ringer's (Dextrose 5%-Lactated Ringers) 1,000 mls @ 150 mls/ hr IV ASDIRECTED [facility] Last Admin: 07/18/16 04:26 Dose: 150 mls/hr Cefazolin Sodium 2 gm/ Sodium (Chloride) 50 mls @ 100 mls/hr IV Q8H [facility] Stop: 07/17/16 06:29 Last Admin: 07/17/16 05:08 Dose: 100 mls/hr Dextrose/Lactated Ringer's (Dextrose 5%-Lactated Ringers) 1,000 mls @ 100 mls/ hr IV ASDIRECTED [facility] Last Admin: 07/19/16 14:53 Dose: 100 mls/hr Acetaminophen 1,000 mg/ Premix 100 mls @ 400 mls/hr IV Q6H PRN PRN Reason: PAIN Stop: 07/20/16 10:30 Acetaminophen 1,000 mg/ Premix 100 mls @ 400 mls/hr IV NOW ONE Stop: 07/20/16 07:32 Last Admin: 07/20/16 07:31 Dose: 400 mls/hr Lactated Ringer's (Ringers, Lactated) 1,000 mls @ 1,000 mls/hr IV ASDIRECTED [facility] Stop: 07/20/16 09:31 Last Admin: 07/20/16 09:10 Dose: 1,000 mls/hr Levofloxacin/Dextrose 500 mg/ (Premix) 100 mls @ 100 mls/hr IV Q24H [facility] Last Admin: 07/20/16 09:22 Dose: 100 mls/hr Acetaminophen 1,000 mg/ Premix 100 mls @ 400 mls/hr IV Q6H [facility] Last Admin: 07/20/16 22:20 Dose: 400 mls/hr Lactated Ringer's (Ringers, Lactated) 1,000 mls @ 250 mls/hr IV ASDIRECTED [facility] Stop: 07/20/16 14:01 Last Admin: 07/20/16 11:04 Dose: 250 mls/hr Meropenem 1 gm/ Sodium (Chloride) 50 mls @ 100 mls/hr IV Q8H [facility] Last Admin: 07/20/16 11:41 Dose: 100 mls/hr Lactated Ringer's (Ringers, Lactated) 1,000 mls @ 999 mls/hr IV BOLUS ONE Stop: 07/20/16 17:19 Last Admin: 07/20/16 21:10 Dose: 999 mls/hr Lactated Ringer's (Ringers, Lactated) Confirm Administered Dose 1,000 mls @ as directed .ROUTE .STK-MED ONE Stop: 07/20/16 18:26 Lactated Ringer's (Ringers, Lactated) Confirm Administered Dose 1,000 mls @ as directed .ROUTE .STK-MED ONE Stop: 07/20/16 18:27 Dextrose/Lactated Ringer's (Dextrose 5%-Lactated Ringers) 1,000 mls @ 100 mls/ hr IV ASDIRECTED [facility] Stop: 07/23/16 09:59 Last Admin: 07/23/16 00:19 Dose: 100 mls/hr Lactated Ringer's (Ringers, Lactated) 1,000 mls @ 100 mls/hr IV ASDIRECTED [facility] Stop: 07/21/16 17:59 Last Admin: 07/21/16 07:22 Dose: 100 mls/hr Aztreonam 1 gm/ Sodium (Chloride) 50 mls @ 100 mls/hr IV Q8HR [facility] Last Admin: 07/21/16 05:06 Dose: 100 mls/hr Meropenem 500 mg/ Sodium (Chloride) 50 mls @ 100 mls/hr IV Q8H [facility] Last Admin: 07/26/16 05:17 Dose: 100 mls/hr Acetaminophen 1,000 mg/ Premix 100 mls @ 400 mls/hr IV Q6H [facility] Stop: 07/21/16 16:14 Last Admin: 07/21/16 17:12 Dose: 400 mls/hr Aztreonam/Dextrose 1 gm/ (Premix) 50 mls @ 100 mls/hr IV Q8HR [facility] Last Admin: 07/25/16 05:52 Dose: 100 mls/hr Lactated Ringer's (Ringers, Lactated) 1,000 mls @ 40 mls/hr IV ASDIRECTED [facility] Lactated Ringer's (Ringers, Lactated) 1,000 mls @ 40 mls/hr IV ASDIRECTED [facility] Last Admin: 07/23/16 03:55 Dose: 40 mls/hr Albumin Human 12.5 gm/ Premix 50 mls @ 25 mls/hr IV Q24H [facility] Stop: 07/26/16 10:59 Last Admin: 07/26/16 09:09 Dose: 25 mls/hr Albumin Human 12.5 gm/ Premix 50 mls @ 25 mls/hr IV Q24H [facility] Stop: 07/26/16 12:59 Last Admin: 07/26/16 10:44 Dose: 25 mls/hr Albumin Human 12.5 gm/ Premix 50 mls @ 25 mls/hr IV Q24H [facility] Stop: 07/26/16 14:59 Last Admin: 07/26/16 12:45 Dose: 25 mls/hr Albumin Human 12.5 gm/ Premix 50 mls @ 25 mls/hr IV Q24H [facility] Stop: 07/26/16 16:59 Last Admin: 07/26/16 15:09 Dose: 25 mls/hr Multivitamins/Minerals 10 ml/Chromium/Copper/Manganese/Seleni/Zn 1 ml/ Amino Ac/ Electrol/Dextrose/Calcium 1,011 mls @ 82 mls/hr IV .BY DURATION [facility] Last Admin: 07/23/16 10:23 Dose: 82 mls/hr Amino Ac/Electrol/Dextrose/Calcium (Clinimix E 5/15) 1,000 mls @ 82 mls/hr IV .BY DURATION [facility] Last Admin: 07/23/16 22:44 Dose: 82 mls/hr Lactated Ringer's (Ringers, Lactated) 1,000 mls @ 0 mls/hr IV ASDIRECTED [facility] PRN Reason: KVO Last Admin: 07/24/16 19:59 Dose: 25 mls/hr Acetaminophen 1,000 mg/ Premix 100 mls @ 400 mls/hr IV Q6H PRN PRN Reason: Pain Stop: 07/24/16 23:18 Last Admin: 07/24/16 20:14 Dose: 400 mls/hr Potassium Chloride 40 meq/ (Premix) 100 mls @ 25 mls/hr IV ONETIME ONE Stop: 07/24/16 12:29 Last Admin: 07/24/16 08:56 Dose: 25 mls/hr Potassium Chloride 20 meq/ (Premix) 100 mls @ 50 mls/hr IV ONETIME ONE Stop: 07/24/16 14:59 Last Admin: 07/24/16 12:31 Dose: 50 mls/hr Multivitamins/Minerals 10 ml/Chromium/Copper/Manganese/Seleni/Zn 1 ml/ Amino Ac/ Electrol/Dextrose/Calcium 1,011 mls @ 82 mls/hr IV .BY DURATION [facility] Last Admin: 07/25/16 13:40 Dose: 82 mls/hr Amino Ac/Electrol/Dextrose/Calcium (Clinimix E 5/15) 1,000 mls @ 82 mls/hr IV .BY DURATION [facility] Last Admin: 07/26/16 00:18 Dose: 82 mls/hr Lactated Ringer's (Ringers, Lactated) 1,000 mls @ 25 mls/hr IV ASDIRECTED [facility] PRN Reason: KVO Acetaminophen 1,000 mg/ Premix 100 mls @ 400 mls/hr IV Q6H PRN PRN Reason: Pain Stop: 07/26/16 05:10 Last Admin: 07/26/16 03:58 Dose: 400 mls/hr Vancomycin HCl 1.75 gm/ Sodium (Chloride) 250 mls @ 167 mls/hr IV ONETIME ONE Stop: 07/25/16 12:29 Last Admin: 07/25/16 11:35 Dose: 167 mls/hr Vancomycin HCl 1.5 gm/ Sodium (Chloride) 250 mls @ 167 mls/hr IV Q12H [facility] Last Admin: 07/26/16 22:58 Dose: 167 mls/hr Fluconazole/Sodium Chloride (200 mg/ Premix) 100 mls @ 100 mls/hr IV Q24H [facility] Last Admin: 08/01/16 10:04 Dose: 100 mls/hr Ceftriaxone Sodium 2 gm/ (Sodium Chloride) 50 mls @ 100 mls/hr IV Q24H [facility] Last Admin: 07/30/16 13:05 Dose: 100 mls/hr Multivitamins/Minerals 10 ml/Chromium/Copper/Manganese/Seleni/Zn 1 ml/ Amino Ac/ Electrol/Dextrose/Calcium 1,011 mls @ 82 mls/hr IV .BY DURATION [facility] Stop: 07/30/16 14:56 Last Admin: 07/29/16 17:10 Dose: 82 mls/hr Amino Ac/Electrol/Dextrose/Calcium (Clinimix E 09/27) 1,000 mls @ 82 mls/hr IV .BY DURATION [facility] Stop: 07/30/16 14:56 Last Admin: 07/30/16 05:43 Dose: 82 mls/hr Acetaminophen 1,000 mg/ Premix 100 mls @ 400 mls/hr IV Q6H PRN PRN Reason: Pain Stop: 07/27/16 23:45 Last Admin: 07/27/16 15:33 Dose: 400 mls/hr Vancomycin HCl 1.7 gm/ Sodium (Chloride) 250 mls @ 167 mls/hr IV Q12H [facility] Last Admin: 07/29/16 23:37 Dose: 167 mls/hr Sodium Chloride (Normal Saline) 85 mls @ 3 mls/sec IV ASDIRECTED [facility] Last Admin: 07/30/16 03:03 Dose: 3 mls/sec Multivitamins/Minerals 10 ml/Chromium/Copper/Manganese/Seleni/Zn 1 ml/ Amino Ac/ Electrol/Dextrose/Calcium 1,011 mls @ 82 mls/hr IV .BY DURATION [facility] Stop: 08/01/16 16:00 Last Admin: 07/31/16 19:11 Dose: 82 mls/hr Amino Ac/Electrol/Dextrose/Calcium (Clinimix E 5/15) 1,000 mls @ 82 mls/hr IV .BY DURATION [facility] Stop: 08/01/16 16:00 Last Admin: 08/01/16 07:33 Dose: 82 mls/hr Vancomycin HCl 1.5 gm/ Sodium (Chloride) 250 mls @ 167 mls/hr IV Q12H [facility] Last Admin: 08/02/16 04:03 Dose: 167 mls/hr Metronidazole 500 mg/ Premix 100 mls @ 100 mls/hr IV Q8H [facility] Last Admin: 08/02/16 08:10 Dose: Not Given Ciprofloxacin/Dextrose 400 mg/ (Premix) 200 mls @ 200 mls/hr IV Q12H [facility] Last Admin: 08/03/16 13:54 Dose: 200 mls/hr Magnesium Sulfate 2 gm/ Premix 50 mls @ 25 mls/hr IV Q6HR [facility] Stop: 08/03/16 05:59 Last Admin: 08/03/16 04:05 Dose: 25 mls/hr Multivitamins/Minerals 10 ml/Chromium/Copper/Manganese/Seleni/Zn 1 ml/ Amino Ac/ Electrol/Dextrose/Calcium 1,011 mls @ 40 mls/hr IV .BY DURATION [facility] Amino Ac/Electrol/Dextrose/Calcium (Clinimix E 5/15) 1,000 mls @ 40 mls/hr IV .BY DURATION [facility] Dextrose/Lactated Ringer's (Dextrose 5%-Lactated Ringers) 1,000 mls @ 60 mls/ hr IV ASDIRECTED [facility] Last Admin: 08/03/16 16:04 Dose: 60 mls/hr Ibuprofen (Motrin) 600 mg PO Q6H [facility] Last Admin: 08/03/16 14:30 Dose: 600 mg Iopamidol (Isovue-300 (61%)) 150 ml IV . DIRECTED [facility] Stop: 07/30/16 02:31 Last Admin: 07/30/16 03:03 Dose: 150 ml Ketorolac Tromethamine (Toradol) 60 mg IM ONETIME ONE Stop: 07/19/16 17:04 Last Admin: 07/19/16 17:30 Dose: 60 mg Labetalol HCl (Normodyne) 5 - 10 mg IV Q2H PRN PRN Reason: BP Last Admin: 07/25/16 05:19 Dose: 10 mg Labetalol HCl (Normodyne) Confirm Administered Dose 20 mg .ROUTE .STK-MED ONE Stop: 07/25/16 05:16 Last Admin: 07/25/16 08:49 Dose: Not Given Labetalol HCl (Normodyne) 0 mg IV Q2H PRN PRN Reason: BP Last Admin: 07/26/16 11:21 Dose: 10 mg Lidocaine HCl (Xylocaine 2% Jelly) 10 ml MUCMEM ONETIME ONE Stop: 07/16/16 21:15 Last Admin: 07/16/16 21:41 Dose: 10 ml Lidocaine/Epinephrine (Xylocaine 1% With Epinephrine 1:100,000) Confirm Administered Dose 50 ml .ROUTE .STK-MED ONE Stop: 07/22/16 06:41 Last Admin: 07/22/16 07:34 Dose: 20 ml Lorazepam (Ativan) 0.5 - 1 mg IVPUSH Q4H PRN PRN Reason: Anxiety Lorazepam (Ativan) 0.5 mg IVPUSH Q2H PRN PRN Reason: Anxiety Last Admin: 07/23/16 16:53 Dose: 0.5 mg Lorazepam (Ativan) 0.5 mg PO Q4H PRN PRN Reason: Anxiety Last Admin: 08/01/16 05:30 Dose: 0.5 mg Losartan Potassium (Cozaar) 50 mg PO DAILY RUMA Last Admin: 07/20/16 09:21 Dose: 50 mg Magnesium Citrate (Citrate Of Magnesia) 296 ml PO ONETIME ONE Stop: 07/18/16 09:01 Last Admin: 07/18/16 10:55 Dose: 296 ml Magnesium Hydroxide (Milk Of Magnesia) 30 ml PO ONETIME ONE Stop: 07/19/16 08:46 Last Admin: 07/19/16 10:27 Dose: 30 ml Magnesium Hydroxide (Milk Of Magnesia) 30 ml PO ONETIME ONE Stop: 07/26/16 09:01 Last Admin: 07/26/16 09:09 Dose: 30 ml Magnesium Hydroxide (Milk Of Magnesia) 30 ml PO Q4H PRN PRN Reason: Constipation Magnesium Hydroxide (Milk Of Magnesia) 30 ml PO ONETIME ONE Stop: 07/29/16 09:01 Last Admin: 07/29/16 11:00 Dose: 30 ml Meperidine HCl (Demerol) 100 mg IM ONETIME ONE Stop: 07/20/16 16:01 Last Admin: 07/20/16 16:05 Dose: 100 mg Meperidine HCl (Demerol) 100 mg IM ONETIME ONE Stop: 07/22/16 06:14 Last Admin: 07/22/16 06:28 Dose: 100 mg Meropenem (Merrem) Confirm Administered Dose 500 mg .ROUTE .STK-MED ONE Stop: 07/16/16 06:43 Last Admin: 07/16/16 09:25 Dose: 500 mg Meropenem (Merrem) Confirm Administered Dose 2,000 mg .ROUTE .STK-MED ONE Stop: 07/20/16 17:25 Last Admin: 07/20/16 17:25 Dose: 2,000 mg Meropenem (Merrem) Confirm Administered Dose 500 mg .ROUTE .STK-MED ONE Stop: 07/22/16 06:41 Last Admin: 07/22/16 07:34 Dose: 500 mg Midazolam HCl (Versed 1 Mg/Ml) Confirm Administered Dose 2 mg .ROUTE .STK-MED ONE Stop: 07/20/16 16:46 Midazolam HCl (Versed 1 Mg/Ml) Confirm Administered Dose 2 mg .ROUTE .STK-MED ONE Stop: 07/22/16 07:04 Morphine Sulfate (Morphine Live In Caregiver 150 Mg In 30 Ml) 150 mg IV ASDIRECTED RUMA PRN Reason: Protocol Last Admin: 07/22/16 06:49 Dose: 150 mg Morphine Sulfate (Morphine Live In Caregiver 150 Mg In 30 Ml) 0 mg IV ASDIRECTED PRN; Protocol PRN Reason: PAIN Last Admin: 07/26/16 03:12 Dose: 150 mg Naloxone HCl (Narcan) 0.1 mg IV ASDIRECTED PRN PRN Reason: decreased respiratory rate Naloxone HCl (Narcan) 0.1 mg IV ASDIRECTED PRN PRN Reason: decreased respiratory rate Naloxone HCl (Narcan) Confirm Administered Dose 0.4 mg .ROUTE .STK-MED ONE Stop: 07/20/16 20:01 Naloxone HCl (Narcan) 0.1 mg IV ASDIRECTED PRN PRN Reason: decreased respiratory rate Neostigmine Methylsulfate (Neostigmine) Confirm Administered Dose 5 mg .ROUTE .STK-MED ONE Stop: 07/16/16 07:27 Neostigmine Methylsulfate (Neostigmine) Confirm Administered Dose 5 mg .ROUTE .STK-MED ONE Stop: 07/20/16 16:44 Nitroglycerin (Nitrostat) 0.4 mg SL Q5M PRN PRN Reason: CHEST PAIN Fentanyl Patch Check 0 each TOP DAILY [facility] Last Admin: 07/20/16 09:27 Dose: 1 each Fentanyl Patch Check 0 each TOP DAILY@2200 [facility] Last Admin: 07/20/16 22:19 Dose: Not Given Verify Fentanyl (Patch) 0 each TOP BID [facility] Last Admin: 07/24/16 23:12 Dose: Not Given Non-Formulary Medication (Total Parenteral Nutrition, Central) 1,000 ml .XX .Continue Order [facility] Stop: 07/27/16 16:00 Non-Formulary Medication (Total Parenteral Nutrition, Central) 1,000 ml .XX .Continue Order [facility] Stop: 07/29/16 23:00 Non-Formulary Medication (Total Parenteral Nutrition, Central) 1,000 ml .XX .Continue Order [facility] Stop: 07/30/16 14:00 Non-Formulary Medication (Total Parenteral Nutrition, Central) 1,000 ml .XX .Continue Order [facility] Stop: 07/31/16 14:00 Non-Formulary Medication (Total Parenteral Nutrition, Central) 1,000 ml .XX .Continue Order [facility] Stop: 08/01/16 14:00 Non-Formulary Medication (Total Parenteral Nutrition, Central) 1,000 ml .XX .Continue Order [facility] Stop: 08/02/16 16:00 Ondansetron HCl (Zofran) Confirm Administered Dose 4 mg .ROUTE .STK-MED ONE Stop: 07/16/16 07:27 Ondansetron HCl (Zofran) 4 mg IVPUSH Q4H PRN PRN Reason: NAUSEA Last Admin: 07/17/16 10:56 Dose: 4 mg Ondansetron HCl (Zofran) Confirm Administered Dose 4 mg .ROUTE .STK-MED ONE Stop: 07/20/16 16:44 Oxycodone HCl (Oxycodone) 5 - 10 mg PO Q4H PRN PRN Reason: Pain Last Admin: 07/28/16 12:27 Dose: 10 mg Oxycodone/Acetaminophen (Percocet 325-5 Mg) 1 - 2 tab PO Q4H PRN PRN Reason: PAIN Last Admin: 07/20/16 03:34 Dose: 2 tab Pantoprazole Sodium (Protonix Iv) 40 mg IV Q24H RUMA Last Admin: 07/25/16 20:56 Dose: 40 mg Polyethylene Glycol (Miralax) 119 gm PO ONETIME ONE Stop: 07/20/16 10:01 Last Admin: 07/20/16 09:35 Dose: 119 gm Propofol (Diprivan 20 Ml) Confirm Administered Dose 200 mg .ROUTE .STK-MED ONE Stop: 07/16/16 07:27 Propofol (Diprivan 20 Ml) Confirm Administered Dose 200 mg .ROUTE .STK-MED ONE Stop: 07/20/16 16:44 Propofol (Diprivan 20 Ml) Confirm Administered Dose 200 mg .ROUTE .STK-MED ONE Stop: 07/22/16 07:04 Rocuronium [place] (Zemuron) Confirm Administered Dose 50 mg .ROUTE .STK-MED ONE Stop: 07/16/16 07:27 Rocuronium [place] (Zemuron) Confirm Administered Dose 50 mg .ROUTE .STK-MED ONE Stop: 07/20/16 16:44 Rocuronium [place] (Zemuron) Confirm Administered Dose 50 mg .ROUTE .STK-MED ONE Stop: 07/20/16 18:24 Sodium Chloride (Saline Flush) 10 ml IV ASDIRECTED PRN PRN Reason: LINE FLUSH Sodium Chloride (Saline Flush) 10 ml FLUSH ONETIME ONE Stop: 07/30/16 02:22 Last Admin: 07/30/16 03:03 Dose: 10 ml Succinylcholine Chloride (Succinylcholine In Ns Pf) Confirm Administered Dose 200 mg .ROUTE .STK-MED ONE Stop: 07/16/16 07:27 Succinylcholine Chloride (Succinylcholine In Ns Pf) Confirm Administered Dose 200 mg .ROUTE .STK-MED ONE Stop: 07/20/16 16:44 Tamsulosin HCl (Flomax) 0.4 mg PO BEDTIME RUMA Last Admin: 07/19/16 21:18 Dose: 0.4 mg Tamsulosin HCl (Flomax) 0.4 mg PO ONETIME ONE Stop: 07/17/16 09:01 Last Admin: 07/17/16 10:18 Dose: 0.4 mg Tamsulosin HCl (Flomax) 0.4 mg PO ONETIME ONE Stop: 07/24/16 08:31 Last Admin: 07/24/16 09:06 Dose: 0.4 mg Tramadol HCl (Ultram) 50 - 100 mg PO Q4H PRN PRN Reason: Pain Last Admin: 08/03/16 11:22 Dose: 100 mg Vancomycin HCl (Vancomycin) 1 gm IV .PHARMACY TO DOSE RUMA Stop: 07/25/16 12:00 - Exam Quality Assessment: DVT prophylaxis General: alert, cooperative, mild distress Neck: supple Lungs: Clear to auscultation, Normal respiratory effort Cardiovascular: Regular Rhythm, No Murmurs, Tachycardia Abdomen: bowel sounds present, soft, no distension, tenderness, other (Wounds have been open for drainage). No: rigidity, rebound, guarding Extremities: no edema Skin: warm, dry, intact - Problem List Review Problem List Initiated/Reviewed/Updated: Yes - My Orders Last 24 Hours: My Active Orders 08/03/16 17:05 Cardiac Monitoring [RC] .As Directed 08/03/16 17:18 Vital Signs [RC] Q1H Chest 1V Frontal [CR] Stat UA W/MICROSCOPIC [URIN] Stat 08/03/16 17:30 Lactated Ringers [Ringers, Lactated] 1,000 ml IV ASDIRECTED 08/03/16 18:00 Meropenem [Merrem] 1 gm Sodium Chloride 0.9% [Normal Saline] 50 ml IV Q8H 08/03/16 20:00 Aztreonam/Dextrose-Water [Azactam in Dextrose,Iso-Osmotic 1 GM/50 ML] 1 gm Premix Bag 1 bag IV Q8H 08/03/16 21:30 Lactated Ringers [Ringers, Lactated] 1,000 ml IV ASDIRECTED - Plan Plan:: ASSESSMENT AND RECOMMENDATIONS Delirium and hallucinations-improved off of narcotic analogs -Monitor closely RECURRENT FEVER WITH DEVELOPING SEPSIS - status post delayed primary closure done 07/24. Over the past 24 hours has redeveloped temperature elevation, wounds were open this morning for drainage and he is been started on IV Zyvox. Previous cultures grew enterococcus and Escherichia coli, as well as yeast. -Aggressive IV fluid replacement for developing sepsis -Repeat blood cultures and wound cultures pending -Continue Zyvox is initiated this morning -Add IV meropenem and Azactam pending culture results -Transfer to the ICU for more close observation and management Thrush - pain and exam both continue to improve with current cares -Continue oral nystatin and Magic mouthwash ACUTE KIDNEY INJURY - creatinine increased over the past few days, likely secondary to fever with developing sepsis and intravascular volume depletion -Continue to monitor urine output and renal function closely -Aggressive IV fluid replacement -Hold ibuprofen until renal function improves STATUS POST ABDOMINAL WALL HERNIA REPAIR - Appetite improving each day. -Continue current diet CORONARY ARTERY DISEASE-asymptomatic
[2016-08-03] MEDS: Aztreonam/Dextrose-Water 1 GM in Premix Bag 1 BAG IV SCH (20:04)
[2016-08-03] MEDS: Pantoprazole 40 MG Tab.CR PO SCH (21:13)
[2016-08-03] MEDS: Tamsulosin 0.4 MG Cap.ER PO SCH (21:13)
[2016-08-03] MEDS: Acetaminophen 325 MG Tab PO PRN (23:49)
[2016-08-04] MEDS: Aztreonam/Dextrose-Water 1 GM in Premix Bag 1 BAG IV SCH ×3 (04:27→19:54)
[2016-08-04] MEDS: Nystatin Susp 100,000 Unit/ML 5 ML UD Cup PO SCH ×4 (06:06→21:03)
[2016-08-04] MEDS: Acetaminophen 325 MG Tab PO PRN ×4 (06:46→21:04)
[2016-08-04] MEDS: Albuterol/Ipratropium 3.0-0.5 MG/3 ML Neb Soln INH SCH ×4 (07:10→21:03)
[2016-08-04] MEDS: Lactated Ringers 1,000 ML IV SCH (08:39)
--- NOTE | 2016-08-04 08:43 | CR ---
Chest 1V Frontal INDICATION: Fever FINDINGS: Comparison 07/30/2016. Left subclavian central line with tip in the mid SVC. Left upper lucinda drant drain has been removed. Shallow inspiration. AP portable chest x-ray otherwise negative.
[2016-08-04] MEDS ORDERED: Lactated Ringers 1,000 ML IV SCH (09:45)
--- NOTE | 2016-08-04 09:47 | PCM.PN ---
- General Info Date of Service: 08/04/16 Functional Status: Reports: pain controlled, tolerating diet, ambulating - Review of Systems General: Reports: Weakness, Appetite. Denies: Fever, Chills Pulmonary: Reports: no symptoms Cardiovascular: Reports: No Symptoms Gastrointestinal: Reports: Abdominal pain, Diarrhea. Denies: Difficulty swallowing, Nausea, Vomiting Systems Review Comment:: This patient has stabilized since yesterday afternoon, renal function has improved and urine output picked up. He has been afebrile and hemodynamically stable since transfer back to the ICU. It has been fairly good, but stool has been fairly loose. - Patient Data Vitals - most recent: Last Vital Signs Temp 99.2 F 08/04/16 08:56 Pulse 89 08/04/16 08:56 Resp 26 H 08/04/16 08:56 BP 127/74 08/04/16 08:56 Pulse Ox 96 08/04/16 08:56 Weight - most recent: 234 lb 9 oz I&O - last 24 hours: Intake & Output 08/03/16 08/04/16 08/04/16 22:59 06:59 14:59 Intake Total 604 3268 Output Total 50 Balance 604 3218 Lab Results last 24 hrs: Laboratory Results - last 24 hr 08/03/16 08/03/16 08/04/16 Range/Units 17:03 21:29 04:00 WBC 9.6 (4.5-11.0) K/uL RBC 3.93 L (4.30-5.90) M/uL Hgb 11.4 L (12.0-15.0) g/dL Hct 35.4 L (40.0-54.0) % MCV 90 (80-98) fL MCH 29 (27-31) pg MCHC 32 (32-36) % Plt Count 383 (150-400) K/uL Sodium (140-148) mmol/L Potassium (3.6-5.2) mmol/L Chloride (100-108) mmol/L Carbon Dioxide (21-32) mmol/L Anion Gap (5.0-14.0) mmol/L BUN (7-18) mg/dL Creatinine (0.8-1.3) mg/dL Est Cr Clr Drug Dosing mL/min Estimated GFR (MDRD) (>60) Glucose (74-106) mg/dL Lactic Acid 1.2 (0.4-2.0) mmol/L Calcium (8.5-10.1) mg/dL Phosphorus (2.5-4.9) mg/dL Magnesium (1.8-2.4) mg/dL [id number] Pept (5-125) pg/mL Urine Color Yellow Urine Appearance Clear Urine pH 5.0 (4.5-8.0) Ur Specific [place] 1.025 (1.008-1.030) Urine Protein Negative (NEGATIVE) mg/dL Urine Glucose (UA) Normal (NEGATIVE) mg/dL Urine Ketones Negative (NEGATIVE) mg/dL Urine Occult Blood Negative (NEGATIVE) Urine Nitrite Negative (NEGAITVE) Urine Bilirubin Negative (NEGATIVE) Urine Urobilinogen Normal (NORMAL) mg/dL Ur Leukocyte Esterase Negative (NEGATIVE) Urine RBC 0-5 (0-5) Urine WBC 0-5 (0-5) Ur Epithelial Cells Moderate Amorphous Sediment Moderate Urine Bacteria Few Urine Mucus Moderate Urine Other 08/04/16 Range/Units 04:00 WBC (4.5-11.0) K/uL RBC (4.30-5.90) M/uL Hgb (12.0-15.0) g/dL Hct (40.0-54.0) % MCV (80-98) fL MCH (27-31) pg MCHC (32-36) % Plt Count (150-400) K/uL Sodium 138 L (140-148) mmol/L Potassium 4.3 (3.6-5.2) mmol/L Chloride 105 (100-108) mmol/L Carbon Dioxide 24 (21-32) mmol/L Anion Gap 13.3 (5.0-14.0) mmol/L BUN 22 H (7-18) mg/dL Creatinine 1.4 H (0.8-1.3) mg/dL Est Cr Clr Drug Dosing 55.17 mL/min Estimated GFR (MDRD) 51 L (>60) Glucose 111 H (74-106) mg/dL Lactic Acid (0.4-2.0) mmol/L Calcium 7.1 L (8.5-10.1) mg/dL Phosphorus 4.2 (2.5-4.9) mg/dL Magnesium 1.8 (1.8-2.4) mg/dL [id number] Pept 18 (5-125) pg/mL Urine Color Urine Appearance Urine pH (4.5-8.0) Ur Specific [place] (1.008-1.030) Urine Protein (NEGATIVE) mg/dL Urine Glucose (UA) (NEGATIVE) mg/dL Urine Ketones (NEGATIVE) mg/dL Urine Occult Blood (NEGATIVE) Urine Nitrite (NEGAITVE) Urine Bilirubin (NEGATIVE) Urine Urobilinogen (NORMAL) mg/dL Ur Leukocyte Esterase (NEGATIVE) Urine RBC (0-5) Urine WBC (0-5) Ur Epithelial Cells Amorphous Sediment Urine Bacteria Urine Mucus Urine Other Boby Results last 24 hrs: Microbiology 08/03/16 08:18 Anaerobic Culture - Preliminary Ricky Corona Drainage NO GROWTH AFTER 1 DAY 08/03/16 08:18 Anaerobic Culture - Preliminary Ricky [place]ona Drainage NO GROWTH AFTER 1 DAY 08/03/16 08:18 Gram Stain - Final Abdomen - Incision Wound Culture - Preliminary 08/03/16 08:18 Gram Stain - Final Abdomen - Incision Wound Culture - Preliminary NO GROWTH AFTER 1 DAY 08/02/16 21:45 Aerobic Blood Culture - Preliminary Blood - Arm, Right NO GROWTH AFTER 1 DAY Anaerobic Blood Culture - Preliminary NO GROWTH AFTER 1 DAY 08/02/16 21:35 Aerobic Blood Culture - Preliminary Blood - Arm, Right NO GROWTH AFTER 1 DAY Anaerobic Blood Culture - Preliminary NO GROWTH AFTER 1 DAY Med Orders - Current: Current Medications Acetaminophen (Tylenol) 650 mg PO Q4H PRN PRN Reason: Pain Last Admin: 08/04/16 06:46 Dose: 650 mg Albuterol/Ipratropium (Duoneb 3.0-0.5 Mg/3 Ml) 3 ml INH QIDRT [facility] Last Admin: 08/04/16 07:10 Dose: 3 ml Benzocaine/Menthol (Cepacol Sore Throat) 1 lozenge MUCMEM Q1H PRN PRN Reason: Pain Dimethicone/Zinc Oxide (Rash Relief-Zinc Oxide [place]) 0 gm TOP ASDIRECTED PRN PRN Reason: Rash Heparin Sodium (Porcine) (Heparin Lock Flush 100 Units/Ml Syringe) 500 units FLUSH ASDIRECTED PRN PRN Reason: IV Use Last Admin: 08/04/16 04:26 Dose: 500 units Linezolid 600 mg/ Premix 300 mls @ 300 mls/hr IV Q12H [facility] Last Admin: 08/03/16 23:35 Dose: 300 mls/hr Aztreonam/Dextrose 1 gm/ (Premix) 50 mls @ 100 mls/hr IV Q8H [facility] Last Admin: 08/04/16 04:27 Dose: 100 mls/hr Meropenem 1 gm/ Sodium (Chloride) 50 mls @ 100 mls/hr IV Q8H [facility] Last Admin: 08/04/16 01:29 Dose: 100 mls/hr Lorazepam (Ativan) 1 mg PO Q4H PRN PRN Reason: Anxiety Last Admin: 08/03/16 05:37 Dose: 1 mg Losartan Potassium (Cozaar) 50 mg PO DAILY [facility] Last Admin: 08/03/16 08:45 Dose: 50 mg Naloxone HCl (Narcan) 0.1 mg IV ASDIRECTED PRN PRN Reason: decreased respiratory rate Nitroglycerin (Nitrostat) 0.4 mg SL Q5M PRN PRN Reason: CHEST PAIN Nystatin (Mycostatin) 5 ml PO QID [facility] Last Admin: 08/04/16 06:06 Dose: 5 ml Ondansetron HCl (Zofran) 4 mg IVPUSH Q4H PRN PRN Reason: NAUSEA Last Admin: 08/02/16 10:00 Dose: 4 mg Pantoprazole Sodium (Protonix) 40 mg PO BEDTIME [facility] Last Admin: 08/03/16 21:13 Dose: 40 mg Tamsulosin HCl (Flomax) 0.4 mg PO BEDTIME [facility] Last Admin: 08/03/16 21:13 Dose: 0.4 mg Discontinued Medications Acetaminophen (Tylenol) 650 mg PO Q4H PRN PRN Reason: Fever Last Admin: 07/26/16 19:54 Dose: 650 mg Acetaminophen (Tylenol) 650 mg PO Q4H PRN PRN Reason: Pain (mild 1-3) Last Admin: 07/29/16 00:39 Dose: 650 mg Acetaminophen (Tylenol) 650 mg PO Q4H PRN PRN Reason: Pain (mild 1-3) Acetaminophen (Tylenol) 650 mg GTUBE Q4H PRN PRN Reason: Pain (mild 1-3) Last Admin: 08/03/16 02:08 Dose: 650 mg Albuterol (Proventil Neb Soln) 2.5 mg NEB Q4H PRN PRN Reason: Dyspnea Last Admin: 07/20/16 16:13 Dose: 2.5 mg Albuterol/Ipratropium (Duoneb 3.0-0.5 Mg/3 Ml) 3 ml INH ASDIRECTED PRN PRN Reason: * Last Admin: 07/23/16 23:50 Dose: 3 ml Bacitracin (Bacitracin Oint) 0 gm TOP TID [facility] Last Admin: 07/20/16 13:58 Dose: 1 applic Bisacodyl (Dulcolax) 10 mg PO BID [facility] Last Admin: 07/20/16 09:22 Dose: 10 mg Bisacodyl (Dulcolax) 10 mg RECTAL BID PRN PRN Reason: Constipation Last Admin: 07/19/16 17:31 Dose: 10 mg Bisacodyl (Dulcolax) 20 mg PO ONETIME ONE Stop: 07/26/16 10:01 Last Admin: 07/26/16 09:09 Dose: 20 mg Bisacodyl (Dulcolax) 10 mg RECTAL BID [facility] Last Admin: 07/26/16 21:21 Dose: 10 mg Bisacodyl (Dulcolax) 10 mg RECTAL DAILY PRN PRN Reason: Constipation Bisacodyl (Dulcolax) 20 mg PO ONETIME ONE Stop: 07/29/16 10:01 Last Admin: 07/29/16 12:58 Dose: 20 mg Bupivacaine HCl (Marcaine 0.5%) Confirm Administered Dose 50 ml .ROUTE .STK-MED ONE Stop: 07/22/16 06:41 Last Admin: 07/22/16 07:34 Dose: 20 ml Bupivacaine HCl/Epinephrine Bitart (Marcaine 0.5%/Epinephrine 1:200,000) Confirm Administered Dose 50 ml .ROUTE .STK-MED ONE Stop: 07/16/16 06:43 Last Admin: 07/16/16 07:28 Dose: 10 ml Buspirone HCl (Buspar) 15 mg PO DAILY [facility] Last Admin: 07/20/16 09:21 Dose: 15 mg Buspirone HCl (Buspar) 7.5 mg PO QPM [facility] Last Admin: 07/20/16 17:57 Dose: Not Given Buspirone HCl (Buspar) 15 mg PO DAILY [facility] Last Admin: 07/29/16 10:59 Dose: 15 mg Buspirone HCl (Buspar) 7.5 mg PO BEDTIME [facility] Last Admin: 07/28/16 20:52 Dose: 7.5 mg Lidocaine HCl 30 ml/ Al Hydroxide/Mg Hydroxide 30 ml/Diphenhydramine HCl 75 mg 0 ml PO QID [facility] Last Admin: 08/03/16 16:06 Dose: 15 ml Dexamethasone (Dexamethasone) Confirm Administered Dose 4 mg .ROUTE .STK-MED ONE Stop: 07/16/16 07:27 Dexamethasone (Dexamethasone) Confirm Administered Dose 4 mg .ROUTE .STK-MED ONE Stop: 07/20/16 16:44 Diatrizoate Meglum/Diatrizoate Sod (Gastrografin 37%) 1,200 ml .XX . DIRECTED [facility] Stop: 07/20/16 14:16 Last Admin: 07/20/16 15:27 Dose: 1,200 ml Diphenhydramine HCl (Benadryl) 25 mg PO BEDTIME PRN PRN Reason: Sleep Last Admin: 07/29/16 00:39 Dose: 25 mg Diphenhydramine HCl (Benadryl) 25 mg PO BEDTIME PRN PRN Reason: SLEEP Diphenhydramine HCl (Benadryl) 25 mg GTUBE BEDTIME PRN PRN Reason: SLEEP Docusate Sodium (Colace) 100 mg PO BID [facility] Last Admin: 07/28/16 20:52 Dose: 100 mg Docusate Sodium (Colace 50 Mg/5 Ml Liquid) 100 mg GTUBE BID [facility] Last Admin: 07/31/16 21:13 Dose: 100 mg Fentanyl (Sublimaze) Confirm Administered Dose 500 mcg .ROUTE .STK-MED ONE Stop: 07/16/16 07:27 Fentanyl (Sublimaze) Confirm Administered Dose 250 mcg .ROUTE .STK-MED ONE Stop: 07/16/16 09:21 Fentanyl (Duragesic) 25 mcg TRDERM Q72H [facility] Last Admin: 07/20/16 09:24 Dose: 25 mcg Fentanyl (Sublimaze) Confirm Administered Dose 250 mcg .ROUTE .STK-MED ONE Stop: 07/20/16 16:45 Fentanyl (Sublimaze) Confirm Administered Dose 250 mcg .ROUTE .STK-MED ONE Stop: 07/20/16 18:24 Fentanyl (Duragesic) 25 mcg TRDERM Q72H [facility] Last Admin: 07/20/16 22:18 Dose: Not Given Fentanyl (Duragesic) 25 mcg TRDERM Q72H [facility] Fentanyl (Sublimaze) Confirm Administered Dose 100 mcg .ROUTE .STK-MED ONE Stop: 07/22/16 07:04 Fentanyl (Duragesic) 50 mcg TRDERM Q72H [facility] Last Admin: 07/22/16 09:40 Dose: 50 mcg Furosemide (Lasix) 20 mg IVPUSH Q8H [facility] Last Admin: 07/24/16 15:59 Dose: Not Given Glycopyrrolate () Confirm Administered Dose 1 mg .ROUTE .STK-MED ONE Stop: 07/16/16 07:27 Glycopyrrolate () Confirm Administered Dose 1 mg .ROUTE .STK-MED ONE Stop: 07/20/16 16:44 Haloperidol Lactate (Haldol) 2.5 mg IVPUSH ONETIME ONE Stop: 07/23/16 06:18 Last Admin: 07/23/16 06:26 Dose: 2.5 mg Haloperidol Lactate (Haldol) 2.5 mg IVPUSH Q1H PRN PRN Reason: PSYCHOSIS/ANXIETY Last Admin: 07/23/16 18:10 Dose: 2.5 mg Heparin Sodium (Porcine) (Heparin Lock Flush 100 Units/Ml Syringe) Confirm Administered Dose 500 units .ROUTE .STK-MED ONE Stop: 07/20/16 17:25 Last Admin: 07/20/16 17:28 Dose: 500 units Heparin Sodium (Porcine) (Heparin Sodium) Confirm Administered Dose 5,000 units .ROUTE .STK-MED ONE Stop: 07/20/16 20:54 Last Admin: 07/20/16 21:06 Dose: 5,000 units Hydromorphone HCl (Dilaudid C Developer 15 Mg In Ns 30 Ml) 0 mg IV ASDIRECTED PRN; Protocol PRN Reason: Pain Last Admin: 07/16/16 07:37 Dose: 0.3 mg Hydromorphone HCl (Dilaudid C Developer 15 Mg In Ns 30 Ml) 0 mg IV ASDIRECTED PRN; Protocol PRN Reason: PAIN Last Admin: 07/20/16 07:38 Dose: 15 mg Hydromorphone HCl (Dilaudid C Developer 15 Mg In Ns 30 Ml) 0 mg IV ASDIRECTED PRN; Protocol PRN Reason: PAIN Last Admin: 07/21/16 07:19 Dose: 15 mg Hydromorphone HCl (Dilaudid) 0.5 - 1 mg IVPUSH Q2H PRN PRN Reason: Pain (severe 7-10) Last Admin: 07/27/16 00:30 Dose: 1 mg Hydroxyzine HCl (Vistaril) 100 mg IM Q4H PRN PRN Reason: Pain Last Admin: 07/20/16 14:41 Dose: 100 mg Hydroxyzine HCl (Vistaril) 100 mg IM Q4H PRN PRN Reason: PAIN Last Admin: 07/26/16 12:16 Dose: 100 mg Hydroxyzine HCl (Vistaril) 50 mg IM ONETIME ONE Stop: 07/22/16 06:14 Last Admin: 07/22/16 06:29 Dose: 50 mg Clindamycin Phosphate 900 mg/ (Sodium Chloride) 106 mls @ 212 mls/hr IV ONETIME ONE Stop: 07/16/16 07:59 Last Admin: 07/16/16 07:48 Dose: 212 mls/hr Dextrose/Lactated Ringer's (Dextrose 5%-Lactated Ringers) 1,000 mls @ 100 mls/ hr IV ASDIRECTED [facility] Last Admin: 07/16/16 07:37 Dose: 100 mls/hr Lactated Ringer's (Ringers, Lactated) Confirm Administered Dose 1,000 mls @ as directed .ROUTE .STK-MED ONE Stop: 07/16/16 09:17 Dextrose/Lactated Ringer's (Dextrose 5%-Lactated Ringers) 1,000 mls @ 150 mls/ hr IV ASDIRECTED [facility] Last Admin: 07/18/16 04:26 Dose: 150 mls/hr Cefazolin Sodium 2 gm/ Sodium (Chloride) 50 mls @ 100 mls/hr IV Q8H [facility] Stop: 07/17/16 06:29 Last Admin: 07/17/16 05:08 Dose: 100 mls/hr Dextrose/Lactated Ringer's (Dextrose 5%-Lactated Ringers) 1,000 mls @ 100 mls/ hr IV ASDIRECTED [facility] Last Admin: 07/19/16 14:53 Dose: 100 mls/hr Acetaminophen 1,000 mg/ Premix 100 mls @ 400 mls/hr IV Q6H PRN PRN Reason: PAIN Stop: 07/20/16 10:30 Acetaminophen 1,000 mg/ Premix 100 mls @ 400 mls/hr IV NOW ONE Stop: 07/20/16 07:32 Last Admin: 07/20/16 07:31 Dose: 400 mls/hr Lactated Ringer's (Ringers, Lactated) 1,000 mls @ 1,000 mls/hr IV ASDIRECTED [facility] Stop: 07/20/16 09:31 Last Admin: 07/20/16 09:10 Dose: 1,000 mls/hr Levofloxacin/Dextrose 500 mg/ (Premix) 100 mls @ 100 mls/hr IV Q24H [facility] Last Admin: 07/20/16 09:22 Dose: 100 mls/hr Acetaminophen 1,000 mg/ Premix 100 mls @ 400 mls/hr IV Q6H [facility] Last Admin: 07/20/16 22:20 Dose: 400 mls/hr Lactated Ringer's (Ringers, Lactated) 1,000 mls @ 250 mls/hr IV ASDIRECTED [facility] Stop: 07/20/16 14:01 Last Admin: 07/20/16 11:04 Dose: 250 mls/hr Meropenem 1 gm/ Sodium (Chloride) 50 mls @ 100 mls/hr IV Q8H [facility] Last Admin: 07/20/16 11:41 Dose: 100 mls/hr Lactated Ringer's (Ringers, Lactated) 1,000 mls @ 999 mls/hr IV BOLUS ONE Stop: 07/20/16 17:19 Last Admin: 07/20/16 21:10 Dose: 999 mls/hr Lactated Ringer's (Ringers, Lactated) Confirm Administered Dose 1,000 mls @ as directed .ROUTE .STK-MED ONE Stop: 07/20/16 18:26 Lactated Ringer's (Ringers, Lactated) Confirm Administered Dose 1,000 mls @ as directed .ROUTE .STK-MED ONE Stop: 07/20/16 18:27 Dextrose/Lactated Ringer's (Dextrose 5%-Lactated Ringers) 1,000 mls @ 100 mls/ hr IV ASDIRECTED [facility] Stop: 07/23/16 09:59 Last Admin: 07/23/16 00:19 Dose: 100 mls/hr Lactated Ringer's (Ringers, Lactated) 1,000 mls @ 100 mls/hr IV ASDIRECTED [facility] Stop: 07/21/16 17:59 Last Admin: 07/21/16 07:22 Dose: 100 mls/hr Aztreonam 1 gm/ Sodium (Chloride) 50 mls @ 100 mls/hr IV Q8HR [facility] Last Admin: 07/21/16 05:06 Dose: 100 mls/hr Meropenem 500 mg/ Sodium (Chloride) 50 mls @ 100 mls/hr IV Q8H [facility] Last Admin: 07/26/16 05:17 Dose: 100 mls/hr Acetaminophen 1,000 mg/ Premix 100 mls @ 400 mls/hr IV Q6H [facility] Stop: 07/21/16 16:14 Last Admin: 07/21/16 17:12 Dose: 400 mls/hr Aztreonam/Dextrose 1 gm/ (Premix) 50 mls @ 100 mls/hr IV Q8HR [facility] Last Admin: 07/25/16 05:52 Dose: 100 mls/hr Lactated Ringer's (Ringers, Lactated) 1,000 mls @ 40 mls/hr IV ASDIRECTED [facility] Lactated Ringer's (Ringers, Lactated) 1,000 mls @ 40 mls/hr IV ASDIRECTED [facility] Last Admin: 07/23/16 03:55 Dose: 40 mls/hr Albumin Human 12.5 gm/ Premix 50 mls @ 25 mls/hr IV Q24H [facility] Stop: 07/26/16 10:59 Last Admin: 07/26/16 09:09 Dose: 25 mls/hr Albumin Human 12.5 gm/ Premix 50 mls @ 25 mls/hr IV Q24H [facility] Stop: 07/26/16 12:59 Last Admin: 07/26/16 10:44 Dose: 25 mls/hr Albumin Human 12.5 gm/ Premix 50 mls @ 25 mls/hr IV Q24H [facility] Stop: 07/26/16 14:59 Last Admin: 07/26/16 12:45 Dose: 25 mls/hr Albumin Human 12.5 gm/ Premix 50 mls @ 25 mls/hr IV Q24H [facility] Stop: 07/26/16 16:59 Last Admin: 07/26/16 15:09 Dose: 25 mls/hr Multivitamins/Minerals 10 ml/Chromium/Copper/Manganese/Seleni/Zn 1 ml/ Amino Ac/ Electrol/Dextrose/Calcium 1,011 mls @ 82 mls/hr IV .BY DURATION [facility] Last Admin: 07/23/16 10:23 Dose: 82 mls/hr Amino Ac/Electrol/Dextrose/Calcium (Clinimix E 5/15) 1,000 mls @ 82 mls/hr IV .BY DURATION [facility] Last Admin: 07/23/16 22:44 Dose: 82 mls/hr Lactated Ringer's (Ringers, Lactated) 1,000 mls @ 0 mls/hr IV ASDIRECTED [facility] PRN Reason: KVO Last Admin: 07/24/16 19:59 Dose: 25 mls/hr Acetaminophen 1,000 mg/ Premix 100 mls @ 400 mls/hr IV Q6H PRN PRN Reason: Pain Stop: 07/24/16 23:18 Last Admin: 07/24/16 20:14 Dose: 400 mls/hr Potassium Chloride 40 meq/ (Premix) 100 mls @ 25 mls/hr IV ONETIME ONE Stop: 07/24/16 12:29 Last Admin: 07/24/16 08:56 Dose: 25 mls/hr Potassium Chloride 20 meq/ (Premix) 100 mls @ 50 mls/hr IV ONETIME ONE Stop: 07/24/16 14:59 Last Admin: 07/24/16 12:31 Dose: 50 mls/hr Multivitamins/Minerals 10 ml/Chromium/Copper/Manganese/Seleni/Zn 1 ml/ Amino Ac/ Electrol/Dextrose/Calcium 1,011 mls @ 82 mls/hr IV .BY DURATION [facility] Last Admin: 07/25/16 13:40 Dose: 82 mls/hr Amino Ac/Electrol/Dextrose/Calcium (Clinimix E 5/15) 1,000 mls @ 82 mls/hr IV .BY DURATION [facility] Last Admin: 07/26/16 00:18 Dose: 82 mls/hr Lactated Ringer's (Ringers, Lactated) 1,000 mls @ 25 mls/hr IV ASDIRECTED [facility] PRN Reason: KVO Acetaminophen 1,000 mg/ Premix 100 mls @ 400 mls/hr IV Q6H PRN PRN Reason: Pain Stop: 07/26/16 05:10 Last Admin: 07/26/16 03:58 Dose: 400 mls/hr Vancomycin HCl 1.75 gm/ Sodium (Chloride) 250 mls @ 167 mls/hr IV ONETIME ONE Stop: 07/25/16 12:29 Last Admin: 07/25/16 11:35 Dose: 167 mls/hr Vancomycin HCl 1.5 gm/ Sodium (Chloride) 250 mls @ 167 mls/hr IV Q12H [facility] Last Admin: 07/26/16 22:58 Dose: 167 mls/hr Fluconazole/Sodium Chloride (200 mg/ Premix) 100 mls @ 100 mls/hr IV Q24H [facility] Last Admin: 08/01/16 10:04 Dose: 100 mls/hr Ceftriaxone Sodium 2 gm/ (Sodium Chloride) 50 mls @ 100 mls/hr IV Q24H [facility] Last Admin: 07/30/16 13:05 Dose: 100 mls/hr Multivitamins/Minerals 10 ml/Chromium/Copper/Manganese/Seleni/Zn 1 ml/ Amino Ac/ Electrol/Dextrose/Calcium 1,011 mls @ 82 mls/hr IV .BY DURATION [facility] Stop: 07/30/16 14:56 Last Admin: 07/29/16 17:10 Dose: 82 mls/hr Amino Ac/Electrol/Dextrose/Calcium (Clinimix E 5/15) 1,000 mls @ 82 mls/hr IV .BY DURATION [facility] Stop: 07/30/16 14:56 Last Admin: 07/30/16 05:43 Dose: 82 mls/hr Acetaminophen 1,000 mg/ Premix 100 mls @ 400 mls/hr IV Q6H PRN PRN Reason: Pain Stop: 07/27/16 23:45 Last Admin: 07/27/16 15:33 Dose: 400 mls/hr Vancomycin HCl 1.7 gm/ Sodium (Chloride) 250 mls @ 167 mls/hr IV Q12H [facility] Last Admin: 07/29/16 23:37 Dose: 167 mls/hr Sodium Chloride (Normal Saline) 85 mls @ 3 mls/sec IV ASDIRECTED [facility] Last Admin: 07/30/16 03:03 Dose: 3 mls/sec Multivitamins/Minerals 10 ml/Chromium/Copper/Manganese/Seleni/Zn 1 ml/ Amino Ac/ Electrol/Dextrose/Calcium 1,011 mls @ 82 mls/hr IV .BY DURATION [facility] Stop: 08/01/16 16:00 Last Admin: 07/31/16 19:11 Dose: 82 mls/hr Amino Ac/Electrol/Dextrose/Calcium (Clinimix E 5/15) 1,000 mls @ 82 mls/hr IV .BY DURATION [facility] Stop: 08/01/16 16:00 Last Admin: 08/01/16 07:33 Dose: 82 mls/hr Vancomycin HCl 1.5 gm/ Sodium (Chloride) 250 mls @ 167 mls/hr IV Q12H [facility] Last Admin: 08/02/16 04:03 Dose: 167 mls/hr Metronidazole 500 mg/ Premix 100 mls @ 100 mls/hr IV Q8H [facility] Last Admin: 08/02/16 08:10 Dose: Not Given Ciprofloxacin/Dextrose 400 mg/ (Premix) 200 mls @ 200 mls/hr IV Q12H [facility] Last Admin: 08/03/16 13:54 Dose: 200 mls/hr Magnesium Sulfate 2 gm/ Premix 50 mls @ 25 mls/hr IV Q6HR [facility] Stop: 08/03/16 05:59 Last Admin: 08/03/16 04:05 Dose: 25 mls/hr Multivitamins/Minerals 10 ml/Chromium/Copper/Manganese/Seleni/Zn 1 ml/ Amino Ac/ Electrol/Dextrose/Calcium 1,011 mls @ 40 mls/hr IV .BY DURATION [facility] Amino Ac/Electrol/Dextrose/Calcium (Clinimix E 5/15) 1,000 mls @ 40 mls/hr IV .BY DURATION [facility] Dextrose/Lactated Ringer's (Dextrose 5%-Lactated Ringers) 1,000 mls @ 60 mls/ hr IV ASDIRECTED [facility] Last Admin: 08/03/16 16:04 Dose: 60 mls/hr Lactated Ringer's (Ringers, Lactated) 1,000 mls @ 500 mls/hr IV ASDIRECTED [facility] Stop: 08/03/16 21:31 Last Admin: 08/03/16 20:08 Dose: 500 mls/hr Lactated Ringer's (Ringers, Lactated) 1,000 mls @ 125 mls/hr IV ASDIRECTED [facility] Last Admin: 08/04/16 08:39 Dose: 125 mls/hr Ibuprofen (Motrin) 600 mg PO Q6H [facility] Last Admin: 08/03/16 14:30 Dose: 600 mg Iopamidol (Isovue-300 (61%)) 150 ml IV . DIRECTED RUMA Stop: 07/30/16 02:31 Last Admin: 07/30/16 03:03 Dose: 150 ml Ketorolac Tromethamine (Toradol) 60 mg IM ONETIME ONE Stop: 07/19/16 17:04 Last Admin: 07/19/16 17:30 Dose: 60 mg Labetalol HCl (Normodyne) 5 - 10 mg IV Q2H PRN PRN Reason: BP Last Admin: 07/25/16 05:19 Dose: 10 mg Labetalol HCl (Normodyne) Confirm Administered Dose 20 mg .ROUTE .STK-MED ONE Stop: 07/25/16 05:16 Last Admin: 07/25/16 08:49 Dose: Not Given Labetalol HCl (Normodyne) 0 mg IV Q2H PRN PRN Reason: BP Last Admin: 07/26/16 11:21 Dose: 10 mg Lidocaine HCl (Xylocaine 2% Jelly) 10 ml MUCMEM ONETIME ONE Stop: 07/16/16 21:15 Last Admin: 07/16/16 21:41 Dose: 10 ml Lidocaine/Epinephrine (Xylocaine 1% With Epinephrine 1:100,000) Confirm Administered Dose 50 ml .ROUTE .STK-MED ONE Stop: 07/22/16 06:41 Last Admin: 07/22/16 07:34 Dose: 20 ml Lorazepam (Ativan) 0.5 - 1 mg IVPUSH Q4H PRN PRN Reason: Anxiety Lorazepam (Ativan) 0.5 mg IVPUSH Q2H PRN PRN Reason: Anxiety Last Admin: 07/23/16 16:53 Dose: 0.5 mg Lorazepam (Ativan) 0.5 mg PO Q4H PRN PRN Reason: Anxiety Last Admin: 08/01/16 05:30 Dose: 0.5 mg Losartan Potassium (Cozaar) 50 mg PO DAILY [facility] Last Admin: 07/20/16 09:21 Dose: 50 mg Magnesium Citrate (Citrate Of Magnesia) 296 ml PO ONETIME ONE Stop: 07/18/16 09:01 Last Admin: 07/18/16 10:55 Dose: 296 ml Magnesium Hydroxide (Milk Of Magnesia) 30 ml PO ONETIME ONE Stop: 07/19/16 08:46 Last Admin: 07/19/16 10:27 Dose: 30 ml Magnesium Hydroxide (Milk Of Magnesia) 30 ml PO ONETIME ONE Stop: 07/26/16 09:01 Last Admin: 07/26/16 09:09 Dose: 30 ml Magnesium Hydroxide (Milk Of Magnesia) 30 ml PO Q4H PRN PRN Reason: Constipation Magnesium Hydroxide (Milk Of Magnesia) 30 ml PO ONETIME ONE Stop: 07/29/16 09:01 Last Admin: 07/29/16 11:00 Dose: 30 ml Meperidine HCl (Demerol) 100 mg IM ONETIME ONE Stop: 07/20/16 16:01 Last Admin: 07/20/16 16:05 Dose: 100 mg Meperidine HCl (Demerol) 100 mg IM ONETIME ONE Stop: 07/22/16 06:14 Last Admin: 07/22/16 06:28 Dose: 100 mg Meropenem (Merrem) Confirm Administered Dose 500 mg .ROUTE .STK-MED ONE Stop: 07/16/16 06:43 Last Admin: 07/16/16 09:25 Dose: 500 mg Meropenem (Merrem) Confirm Administered Dose 2,000 mg .ROUTE .STK-MED ONE Stop: 07/20/16 17:25 Last Admin: 07/20/16 17:25 Dose: 2,000 mg Meropenem (Merrem) Confirm Administered Dose 500 mg .ROUTE .STK-MED ONE Stop: 07/22/16 06:41 Last Admin: 07/22/16 07:34 Dose: 500 mg Midazolam HCl (Versed 1 Mg/Ml) Confirm Administered Dose 2 mg .ROUTE .STK-MED ONE Stop: 07/20/16 16:46 Midazolam HCl (Versed 1 Mg/Ml) Confirm Administered Dose 2 mg .ROUTE .STK-MED ONE Stop: 07/22/16 07:04 Morphine Sulfate (Morphine C Developer 150 Mg In 30 Ml) 150 mg IV ASDIRECTED RUMA PRN Reason: Protocol Last Admin: 07/22/16 06:49 Dose: 150 mg Morphine Sulfate (Morphine C Developer 150 Mg In 30 Ml) 0 mg IV ASDIRECTED PRN; Protocol PRN Reason: PAIN Last Admin: 07/26/16 03:12 Dose: 150 mg Naloxone HCl (Narcan) 0.1 mg IV ASDIRECTED PRN PRN Reason: decreased respiratory rate Naloxone HCl (Narcan) 0.1 mg IV ASDIRECTED PRN PRN Reason: decreased respiratory rate Naloxone HCl (Narcan) Confirm Administered Dose 0.4 mg .ROUTE .STK-MED ONE Stop: 07/20/16 20:01 Naloxone HCl (Narcan) 0.1 mg IV ASDIRECTED PRN PRN Reason: decreased respiratory rate Neostigmine Methylsulfate (Neostigmine) Confirm Administered Dose 5 mg .ROUTE .STK-MED ONE Stop: 07/16/16 07:27 Neostigmine Methylsulfate (Neostigmine) Confirm Administered Dose 5 mg .ROUTE .STK-MED ONE Stop: 07/20/16 16:44 Nitroglycerin (Nitrostat) 0.4 mg SL Q5M PRN PRN Reason: CHEST PAIN Fentanyl Patch Check 0 each TOP DAILY [facility] Last Admin: 07/20/16 09:27 Dose: 1 each Fentanyl Patch Check 0 each TOP DAILY@2200 [facility] Last Admin: 07/20/16 22:19 Dose: Not Given Verify Fentanyl (Patch) 0 each TOP BID [facility] Last Admin: 07/24/16 23:12 Dose: Not Given Non-Formulary Medication (Total Parenteral Nutrition, Central) 1,000 ml .XX .Continue Order [facility] Stop: 07/27/16 16:00 Non-Formulary Medication (Total Parenteral Nutrition, Central) 1,000 ml .XX .Continue Order [facility]MA Stop: 07/29/16 23:00 Non-Formulary Medication (Total Parenteral Nutrition, Central) 1,000 ml .XX .Continue Order [facility] Stop: 07/30/16 14:00 Non-Formulary Medication (Total Parenteral Nutrition, Central) 1,000 ml .XX .Continue Order [facility] Stop: 07/31/16 14:00 Non-Formulary Medication (Total Parenteral Nutrition, Central) 1,000 ml .XX .Continue Order [facility] Stop: 08/01/16 14:00 Non-Formulary Medication (Total Parenteral Nutrition, Central) 1,000 ml .XX .Continue Order [facility] Stop: 08/02/16 16:00 Ondansetron HCl (Zofran) Confirm Administered Dose 4 mg .ROUTE .STK-MED ONE Stop: 07/16/16 07:27 Ondansetron HCl (Zofran) 4 mg IVPUSH Q4H PRN PRN Reason: NAUSEA Last Admin: 07/17/16 10:56 Dose: 4 mg Ondansetron HCl (Zofran) Confirm Administered Dose 4 mg .ROUTE .STK-MED ONE Stop: 07/20/16 16:44 Oxycodone HCl (Oxycodone) 5 - 10 mg PO Q4H PRN PRN Reason: Pain Last Admin: 07/28/16 12:27 Dose: 10 mg Oxycodone/Acetaminophen (Percocet 325-5 Mg) 1 - 2 tab PO Q4H PRN PRN Reason: PAIN Last Admin: 07/20/16 03:34 Dose: 2 tab Pantoprazole Sodium (Protonix Iv) 40 mg IV Q24H RUMA Last Admin: 07/25/16 20:56 Dose: 40 mg Polyethylene Glycol (Miralax) 119 gm PO ONETIME ONE Stop: 07/20/16 10:01 Last Admin: 07/20/16 09:35 Dose: 119 gm Propofol (Diprivan 20 Ml) Confirm Administered Dose 200 mg .ROUTE .STK-MED ONE Stop: 07/16/16 07:27 Propofol (Diprivan 20 Ml) Confirm Administered Dose 200 mg .ROUTE .STK-MED ONE Stop: 07/20/16 16:44 Propofol (Diprivan 20 Ml) Confirm Administered Dose 200 mg .ROUTE .STK-MED ONE Stop: 07/22/16 07:04 Rocuronium [place] (Zemuron) Confirm Administered Dose 50 mg .ROUTE .STK-MED ONE Stop: 07/16/16 07:27 Rocuronium [place] (Zemuron) Confirm Administered Dose 50 mg .ROUTE .STK-MED ONE Stop: 07/20/16 16:44 Rocuronium [place] (Zemuron) Confirm Administered Dose 50 mg .ROUTE .STK-MED ONE Stop: 07/20/16 18:24 Sodium Chloride (Saline Flush) 10 ml IV ASDIRECTED PRN PRN Reason: LINE FLUSH Sodium Chloride (Saline Flush) 10 ml FLUSH ONETIME ONE Stop: 07/30/16 02:22 Last Admin: 07/30/16 03:03 Dose: 10 ml Succinylcholine Chloride (Succinylcholine In Ns Pf) Confirm Administered Dose 200 mg .ROUTE .STK-MED ONE Stop: 07/16/16 07:27 Succinylcholine Chloride (Succinylcholine In Ns Pf) Confirm Administered Dose 200 mg .ROUTE .STK-MED ONE Stop: 07/20/16 16:44 Tamsulosin HCl (Flomax) 0.4 mg PO BEDTIME RUMA Last Admin: 07/19/16 21:18 Dose: 0.4 mg Tamsulosin HCl (Flomax) 0.4 mg PO ONETIME ONE Stop: 07/17/16 09:01 Last Admin: 07/17/16 10:18 Dose: 0.4 mg Tamsulosin HCl (Flomax) 0.4 mg PO ONETIME ONE Stop: 07/24/16 08:31 Last Admin: 07/24/16 09:06 Dose: 0.4 mg Tramadol HCl (Ultram) 50 - 100 mg PO Q4H PRN PRN Reason: Pain Last Admin: 08/03/16 11:22 Dose: 100 mg Vancomycin HCl (Vancomycin) 1 gm IV .PHARMACY TO DOSE RUMA Stop: 07/25/16 12:00 - Exam Quality Assessment: DVT prophylaxis General: alert, oriented, cooperative, mild distress Lungs: Clear to auscultation, Normal respiratory effort Cardiovascular: Regular Rate, Regular Rhythm, No Murmurs Abdomen: bowel sounds present, soft, no distension, tenderness. No: rigidity, rebound, guarding Extremities: no edema Skin: warm, dry, intact - Problem List Review Problem List Initiated/Reviewed/Updated: Yes - My Orders Last 24 Hours: My Active Orders 08/03/16 17:05 Cardiac Monitoring [RC] Q6H 08/03/16 17:18 Vital Signs [RC] Q1H 08/03/16 18:00 Meropenem [Merrem] 1 gm Sodium Chloride 0.9% [Normal Saline] 50 ml IV Q8H 08/03/16 20:00 Aztreonam/Dextrose-Water [Azactam in Dextrose,Iso-Osmotic 1 GM/50 ML] 1 gm Premix Bag 1 bag IV Q8H 08/04/16 09:31 Consult to Dietary [Consult to Cosmetic Consultant] [CONS] Routine 08/04/16 09:45 Lactated Ringers [Ringers, Lactated] 1,000 ml IV ASDIRECTED 08/05/16 05:00 BASIC METABOLIC PANEL,BMP [CHEM] Timed CBC WITH AUTO DIFF [HEME] Timed MAGNESIUM [CHEM] Timed PHOSPHORUS [CHEM] Timed - Plan Plan:: ASSESSMENT AND RECOMMENDATIONS Delirium and hallucinations-improved off of narcotics -Monitor closely RECURRENT FEVER WITH DEVELOPING SEPSIS - status post delayed primary closure done 07/24. Over the past 24 hours has redeveloped temperature elevation, wounds were open this morning for drainage and he is been started on IV Zyvox. Previous cultures grew enterococcus and Escherichia coli, as well as yeast. Stabilize since transfer to the ICU with good vital signs and has remained afebrile -Decrease IV fluid rate -Repeat blood cultures and wound cultures pending -Continue Zyvox, meropenem, and Azactam pending culture results Thrush - pain and exam both continue to improve with current cares -Continue oral nystatin and Magic mouthwash ACUTE KIDNEY INJURY - creatinine increased over the past few days, likely secondary to fever with developing sepsis and intravascular volume depletion. Renal function improved and stabilized with IV fluids through the night. -Continue to monitor urine output and renal function closely - decrease IV rate -Hold ibuprofen until renal function improves STATUS POST ABDOMINAL WALL HERNIA REPAIR - Appetite improving each day. -Continue current diet CORONARY ARTERY DISEASE-asymptomatic
[2016-08-04] MEDS: Losartan 50 MG Tab PO SCH (10:13)
[2016-08-04] MEDS: Linezolid 600 MG in Premix Bag 1 BAG IV SCH (12:58)
[2016-08-04] MEDS: traMADol 50 MG Tab PO PRN ×3 (13:32→22:07)
[2016-08-04] MEDS: Inulin 1.5 GM Chewable Tab PO SCH ×2 (14:03→21:03)
[2016-08-04] MEDS: Lactobacillus Rhamnosus GG (Probiotic) Cap PO SCH ×2 (14:03→21:04)
[2016-08-04] MEDS: Atropine/Diphenoxylate 0.025-2.5 MG Tab PO PRN ×2 (15:29→22:07)
[2016-08-04] MEDS: diphenhydrAMINE 25 MG Cap PO PRN (21:03)
[2016-08-04] MEDS: Tamsulosin 0.4 MG Cap.ER PO SCH (21:04)
[2016-08-04] MEDS: Pantoprazole 40 MG Tab.CR PO SCH (21:04)
[2016-08-05] MEDS: Linezolid 600 MG in Premix Bag 1 BAG IV SCH ×2 (00:33→11:30)
[2016-08-05] MEDS: traMADol 50 MG Tab PO PRN ×4 (02:28→21:06)
[2016-08-05] MEDS: Aztreonam/Dextrose-Water 1 GM in Premix Bag 1 BAG IV SCH (03:49)
[2016-08-05] MEDS: Atropine/Diphenoxylate 0.025-2.5 MG Tab PO PRN (04:15)
[2016-08-05] MEDS: Nystatin Susp 100,000 Unit/ML 5 ML UD Cup PO SCH ×5 (05:42→21:19)
[2016-08-05] MEDS: Albuterol/Ipratropium 3.0-0.5 MG/3 ML Neb Soln INH SCH ×5 (07:14→21:16)
[2016-08-05] MEDS: Losartan 50 MG Tab PO SCH (08:19)
[2016-08-05] MEDS: Lactobacillus Rhamnosus GG (Probiotic) Cap PO SCH ×2 (08:20→21:06)
[2016-08-05] MEDS: Inulin 1.5 GM Chewable Tab PO SCH ×2 (08:20→21:06)
[2016-08-05] MEDS: Magnesium Sulfate/Water 2 GM in Premix Bag 1 BAG IV SCH ×3 (08:22→19:23)
[2016-08-05] MEDS: Loperamide 2 MG Cap PO SCH ×3 (08:23→15:52)
--- NOTE | 2016-08-05 09:34 | PCM.PN ---
- General Info Date of Service: 08/05/16 Functional Status: Reports: pain controlled, tolerating diet, ambulating, urinating - Review of Systems General: Reports: Weakness. Denies: Fever, Chills Pulmonary: Reports: no symptoms Cardiovascular: Reports: No Symptoms Gastrointestinal: Reports: Abdominal pain. Denies: Nausea, Vomiting Musculoskeletal: Reports: no symptoms Psychiatric: Denies: confusion Systems Review Comment:: This patient has shown further improvement over the past 24 hours, he had been experiencing frequent stools, this has improved with use of Imodium. Vital signs have been stable and he has remained afebrile. Wound cultures are growing out Escherichia coli, sensitive to current antibiotics. - Patient Data Vitals - most recent: Last Vital Signs Temp 99.6 F 08/05/16 08:00 Pulse 91 08/05/16 09:03 Resp 20 08/05/16 09:03 BP 122/70 08/05/16 09:03 Pulse Ox 98 08/05/16 09:03 Weight - most recent: 245 lb 6.4 oz I&O - last 24 hours: Intake & Output 08/04/16 08/05/16 08/05/16 22:59 06:59 14:59 Intake Total 1164 1496 Output Total 8 Balance 1156 1496 Lab Results last 24 hrs: Laboratory Results - last 24 hr 08/05/16 08/05/16 Range/Units 04:45 04:45 WBC 7.1 (4.5-11.0) K/uL RBC 4.01 L (4.30-5.90) M/uL Hgb 11.6 L (12.0-15.0) g/dL Hct 35.7 L (40.0-54.0) % MCV 89 (80-98) fL MCH 29 (27-31) pg MCHC 33 (32-36) % Plt Count 365 (150-400) K/uL Neut % (Auto) 63 (36-66) % Lymph % (Auto) 25 (24-44) % [place] % (Auto) 10 H (2-6) % Eos % (Auto) 1 L (2-4) % Baso % (Auto) 0 (0-1) % Sodium 138 L (140-148) mmol/L Potassium 4.1 (3.6-5.2) mmol/L Chloride 105 (100-108) mmol/L Carbon Dioxide 23 (21-32) mmol/L Anion Gap 14.1 H (5.0-14.0) mmol/L BUN 17 (7-18) mg/dL Creatinine 1.2 (0.8-1.3) mg/dL Est Cr Clr Drug Dosing 64.37 mL/min Estimated GFR (MDRD) > 60 (>60) Glucose 83 (74-106) mg/dL Calcium 7.2 L (8.5-10.1) mg/dL Phosphorus 4.2 (2.5-4.9) mg/dL Magnesium 1.4 L (1.8-2.4) mg/dL Boby Results last 24 hrs: Microbiology 08/03/16 08:18 Gram Stain - Final Abdomen - Incision Wound Culture - Preliminary YEAST 08/03/16 08:18 Anaerobic Culture - Preliminary Ricky [place]ona Drainage NO GROWTH AFTER 2 DAYS 08/03/16 08:18 Anaerobic Culture - Preliminary Ricky [place] Drainage NO GROWTH AFTER 2 DAYS 08/03/16 08:18 Gram Stain - Final Abdomen - Incision Wound Culture - Final Escherichia Coli 08/02/16 21:45 Aerobic Blood Culture - Preliminary Blood - Arm, Right NO GROWTH AFTER 2 DAYS Anaerobic Blood Culture - Preliminary NO GROWTH AFTER 2 DAYS 08/02/16 21:35 Aerobic Blood Culture - Preliminary Blood - Arm, Right NO GROWTH AFTER 2 DAYS Anaerobic Blood Culture - Preliminary NO GROWTH AFTER 2 DAYS 08/04/16 13:30 Clostridium difficile (PCR) - Final Stool / Feces - Stool, Liquid NEGATIVE CDIFF TOXIN Med Orders - Current: Current Medications Acetaminophen (Tylenol) 650 mg PO Q4H PRN PRN Reason: Pain Last Admin: 08/04/16 21:04 Dose: 650 mg Albuterol/Ipratropium (Duoneb 3.0-0.5 Mg/3 Ml) 3 ml INH QIDRT RUMA Last Admin: 08/05/16 07:14 Dose: 3 ml Benzocaine/Menthol (Cepacol Sore Throat) 1 lozenge MUCMEM Q1H PRN PRN Reason: Pain Dimethicone/Zinc Oxide (Rash Relief-Zinc Oxide [place]) 0 gm TOP ASDIRECTED PRN PRN Reason: Rash Diphenhydramine HCl (Benadryl) 50 mg PO BEDTIME PRN PRN Reason: Sleep Last Admin: 08/04/16 21:03 Dose: 50 mg Diphenoxylate HCl/Atropine (Lomotil 0.025-2.5 Mg) 1 tab PO Q6H PRN PRN Reason: Diarrhea Last Admin: 08/05/16 04:15 Dose: 1 tab Heparin Sodium (Porcine) (Heparin Lock Flush 100 Units/Ml Syringe) 500 units FLUSH ASDIRECTED PRN PRN Reason: IV Use Last Admin: 08/04/16 04:26 Dose: 500 units Linezolid 600 mg/ Premix 300 mls @ 300 mls/hr IV Q12H [facility] Last Admin: 08/05/16 00:33 Dose: 300 mls/hr Magnesium Sulfate 2 gm/ Premix 50 mls @ 25 mls/hr IV Q6H [facility] Stop: 08/08/16 03:59 Last Admin: 08/05/16 08:22 Dose: 25 mls/hr Ceftriaxone Sodium 1 gm/ (Sodium Chloride) 50 mls @ 100 mls/hr IV Q24H [facility] Inulin (Fiber Choice) 4.5 gm PO BID [facility] Last Admin: 08/05/16 08:20 Dose: 4.5 gm Lactobacillus Rhamnosus (Culturelle) 2 cap PO BID [facility] Last Admin: 08/05/16 08:20 Dose: 2 cap Loperamide HCl (Imodium) 2 mg PO TIDAC [facility] Last Admin: 08/05/16 08:23 Dose: 2 mg Lorazepam (Ativan) 1 mg PO Q4H PRN PRN Reason: Anxiety Last Admin: 08/03/16 05:37 Dose: 1 mg Losartan Potassium (Cozaar) 50 mg PO DAILY [facility] Last Admin: 08/05/16 08:19 Dose: 50 mg Nitroglycerin (Nitrostat) 0.4 mg SL Q5M PRN PRN Reason: CHEST PAIN Nystatin (Mycostatin) 5 ml PO QID [facility] Last Admin: 08/05/16 05:42 Dose: 5 ml Ondansetron HCl (Zofran) 4 mg IVPUSH Q4H PRN PRN Reason: NAUSEA Last Admin: 08/02/16 10:00 Dose: 4 mg Pantoprazole Sodium (Protonix) 40 mg PO BEDTIME [facility] Last Admin: 08/04/16 21:04 Dose: 40 mg Tamsulosin HCl (Flomax) 0.4 mg PO BEDTIME [facility] Last Admin: 08/04/16 21:04 Dose: 0.4 mg Tramadol HCl (Ultram) 50 mg PO Q4H PRN PRN Reason: Pain Last Admin: 08/05/16 02:28 Dose: 50 mg Discontinued Medications Acetaminophen (Tylenol) 650 mg PO Q4H PRN PRN Reason: Fever Last Admin: 07/26/16 19:54 Dose: 650 mg Acetaminophen (Tylenol) 650 mg PO Q4H PRN PRN Reason: Pain (mild 1-3) Last Admin: 07/29/16 00:39 Dose: 650 mg Acetaminophen (Tylenol) 650 mg PO Q4H PRN PRN Reason: Pain (mild 1-3) Acetaminophen (Tylenol) 650 mg GTUBE Q4H PRN PRN Reason: Pain (mild 1-3) Last Admin: 08/03/16 02:08 Dose: 650 mg Albuterol (Proventil Neb Soln) 2.5 mg NEB Q4H PRN PRN Reason: Dyspnea Last Admin: 07/20/16 16:13 Dose: 2.5 mg Albuterol/Ipratropium (Duoneb 3.0-0.5 Mg/3 Ml) 3 ml INH ASDIRECTED PRN PRN Reason: * Last Admin: 07/23/16 23:50 Dose: 3 ml Bacitracin (Bacitracin Oint) 0 gm TOP TID [facility] Last Admin: 07/20/16 13:58 Dose: 1 applic Bisacodyl (Dulcolax) 10 mg PO BID [facility] Last Admin: 07/20/16 09:22 Dose: 10 mg Bisacodyl (Dulcolax) 10 mg RECTAL BID PRN PRN Reason: Constipation Last Admin: 07/19/16 17:31 Dose: 10 mg Bisacodyl (Dulcolax) 20 mg PO ONETIME ONE Stop: 07/26/16 10:01 Last Admin: 07/26/16 09:09 Dose: 20 mg Bisacodyl (Dulcolax) 10 mg RECTAL BID [facility] Last Admin: 07/26/16 21:21 Dose: 10 mg Bisacodyl (Dulcolax) 10 mg RECTAL DAILY PRN PRN Reason: Constipation Bisacodyl (Dulcolax) 20 mg PO ONETIME ONE Stop: 07/29/16 10:01 Last Admin: 07/29/16 12:58 Dose: 20 mg Bupivacaine HCl (Marcaine 0.5%) Confirm Administered Dose 50 ml .ROUTE .[facility] ONE Stop: 07/22/16 06:41 Last Admin: 07/22/16 07:34 Dose: 20 ml Bupivacaine HCl/Epinephrine Bitart (Marcaine 0.5%/Epinephrine 1:200,000) Confirm Administered Dose 50 ml .ROUTE .[facility] ONE Stop: 07/16/16 06:43 Last Admin: 07/16/16 07:28 Dose: 10 ml Buspirone HCl (Buspar) 15 mg PO DAILY [facility] Last Admin: 07/20/16 09:21 Dose: 15 mg Buspirone HCl (Buspar) 7.5 mg PO QPM [facility] Last Admin: 07/20/16 17:57 Dose: Not Given Buspirone HCl (Buspar) 15 mg PO DAILY [facility] Last Admin: 07/29/16 10:59 Dose: 15 mg Buspirone HCl (Buspar) 7.5 mg PO BEDTIME [facility] Last Admin: 07/28/16 20:52 Dose: 7.5 mg Lidocaine HCl 30 ml/ Al Hydroxide/Mg Hydroxide 30 ml/Diphenhydramine HCl 75 mg 0 ml PO QID [facility] Last Admin: 08/03/16 16:06 Dose: 15 ml Dexamethasone (Dexamethasone) Confirm Administered Dose 4 mg .ROUTE .[facility] ONE Stop: 07/16/16 07:27 Dexamethasone (Dexamethasone) Confirm Administered Dose 4 mg .ROUTE .[facility] ONE Stop: 07/20/16 16:44 Diatrizoate Meglum/Diatrizoate Sod (Gastrografin 37%) 1,200 ml .XX . DIRECTED [facility] Stop: 07/20/16 14:16 Last Admin: 07/20/16 15:27 Dose: 1,200 ml Diphenhydramine HCl (Benadryl) 25 mg PO BEDTIME PRN PRN Reason: Sleep Last Admin: 07/29/16 00:39 Dose: 25 mg Diphenhydramine HCl (Benadryl) 25 mg PO BEDTIME PRN PRN Reason: SLEEP Diphenhydramine HCl (Benadryl) 25 mg GTUBE BEDTIME PRN PRN Reason: SLEEP Docusate Sodium (Colace) 100 mg PO BID [facility] Last Admin: 07/28/16 20:52 Dose: 100 mg Docusate Sodium (Colace 50 Mg/5 Ml Liquid) 100 mg GTUBE BID [facility] Last Admin: 07/31/16 21:13 Dose: 100 mg Fentanyl (Sublimaze) Confirm Administered Dose 500 mcg .ROUTE .[facility] ONE Stop: 07/16/16 07:27 Fentanyl (Sublimaze) Confirm Administered Dose 250 mcg .ROUTE .[facility] ONE Stop: 07/16/16 09:21 Fentanyl (Duragesic) 25 mcg TRDERM Q72H [facility] Last Admin: 07/20/16 09:24 Dose: 25 mcg Fentanyl (Sublimaze) Confirm Administered Dose 250 mcg .ROUTE .[facility] ONE Stop: 07/20/16 16:45 Fentanyl (Sublimaze) Confirm Administered Dose 250 mcg .ROUTE .[facility] ONE Stop: 07/20/16 18:24 Fentanyl (Duragesic) 25 mcg TRDERM Q72H [facility] Last Admin: 07/20/16 22:18 Dose: Not Given Fentanyl (Duragesic) 25 mcg TRDERM Q72H [facility] Fentanyl (Sublimaze) Confirm Administered Dose 100 mcg .ROUTE .STK-[facility] ONE Stop: 07/22/16 07:04 Fentanyl (Duragesic) 50 mcg TRDERM Q72H [facility] Last Admin: 07/22/16 09:40 Dose: 50 mcg Furosemide (Lasix) 20 mg IVPUSH Q8H [facility] Last Admin: 07/24/16 15:59 Dose: Not Given Glycopyrrolate () Confirm Administered Dose 1 mg .ROUTE .STK-MED ONE Stop: 07/16/16 07:27 Glycopyrrolate () Confirm Administered Dose 1 mg .ROUTE .STK-MED ONE Stop: 07/20/16 16:44 Haloperidol Lactate (Haldol) 2.5 mg IVPUSH ONETIME ONE Stop: 07/23/16 06:18 Last Admin: 07/23/16 06:26 Dose: 2.5 mg Haloperidol Lactate (Haldol) 2.5 mg IVPUSH Q1H PRN PRN Reason: PSYCHOSIS/ANXIETY Last Admin: 07/23/16 18:10 Dose: 2.5 mg Heparin Sodium (Porcine) (Heparin Lock Flush 100 Units/Ml Syringe) Confirm Administered Dose 500 units .ROUTE .[facility]K-[facility] ONE Stop: 07/20/16 17:25 Last Admin: 07/20/16 17:28 Dose: 500 units Heparin Sodium (Porcine) (Heparin Sodium) Confirm Administered Dose 5,000 units .ROUTE .[facility]K-[facility] ONE Stop: 07/20/16 20:54 Last Admin: 07/20/16 21:06 Dose: 5,000 units Hydromorphone HCl (Dilaudid Hostel Manager 15 Mg In Ns 30 Ml) 0 mg IV ASDIRECTED PRN; Protocol PRN Reason: Pain Last Admin: 07/16/16 07:37 Dose: 0.3 mg Hydromorphone HCl (Dilaudid Hostel Manager 15 Mg In Ns 30 Ml) 0 mg IV ASDIRECTED PRN; Protocol PRN Reason: PAIN Last Admin: 07/20/16 07:38 Dose: 15 mg Hydromorphone HCl (Dilaudid Hostel Manager 15 Mg In Ns 30 Ml) 0 mg IV ASDIRECTED PRN; Protocol PRN Reason: PAIN Last Admin: 07/21/16 07:19 Dose: 15 mg Hydromorphone HCl (Dilaudid) 0.5 - 1 mg IVPUSH Q2H PRN PRN Reason: Pain (severe 7-10) Last Admin: 07/27/16 00:30 Dose: 1 mg Hydroxyzine HCl (Vistaril) 100 mg IM Q4H PRN PRN Reason: Pain Last Admin: 07/20/16 14:41 Dose: 100 mg Hydroxyzine HCl (Vistaril) 100 mg IM Q4H PRN PRN Reason: PAIN Last Admin: 07/26/16 12:16 Dose: 100 mg Hydroxyzine HCl (Vistaril) 50 mg IM ONETIME ONE Stop: 07/22/16 06:14 Last Admin: 07/22/16 06:29 Dose: 50 mg Clindamycin Phosphate 900 mg/ (Sodium Chloride) 106 mls @ 212 mls/hr IV ONETIME ONE Stop: 07/16/16 07:59 Last Admin: 07/16/16 07:48 Dose: 212 mls/hr Dextrose/Lactated Ringer's (Dextrose 5%-Lactated Ringers) 1,000 mls @ 100 mls/ hr IV ASDIRECTED RUMA Last Admin: 07/16/16 07:37 Dose: 100 mls/hr Lactated Ringer's (Ringers, Lactated) Confirm Administered Dose 1,000 mls @ as directed .ROUTE .STK-MED ONE Stop: 07/16/16 09:17 Dextrose/Lactated Ringer's (Dextrose 5%-Lactated Ringers) 1,000 mls @ 150 mls/ hr IV ASDIRECTED [facility] Last Admin: 07/18/16 04:26 Dose: 150 mls/hr Cefazolin Sodium 2 gm/ Sodium (Chloride) 50 mls @ 100 mls/hr IV Q8H [facility] Stop: 07/17/16 06:29 Last Admin: 07/17/16 05:08 Dose: 100 mls/hr Dextrose/Lactated Ringer's (Dextrose 5%-Lactated Ringers) 1,000 mls @ 100 mls/ hr IV ASDIRECTED [facility] Last Admin: 07/19/16 14:53 Dose: 100 mls/hr Acetaminophen 1,000 mg/ Premix 100 mls @ 400 mls/hr IV Q6H PRN PRN Reason: PAIN Stop: 07/20/16 10:30 Acetaminophen 1,000 mg/ Premix 100 mls @ 400 mls/hr IV NOW ONE Stop: 07/20/16 07:32 Last Admin: 07/20/16 07:31 Dose: 400 mls/hr Lactated Ringer's (Ringers, Lactated) 1,000 mls @ 1,000 mls/hr IV ASDIRECTED [facility] Stop: 07/20/16 09:31 Last Admin: 07/20/16 09:10 Dose: 1,000 mls/hr Levofloxacin/Dextrose 500 mg/ (Premix) 100 mls @ 100 mls/hr IV Q24H [facility] Last Admin: 07/20/16 09:22 Dose: 100 mls/hr Acetaminophen 1,000 mg/ Premix 100 mls @ 400 mls/hr IV Q6H [facility] Last Admin: 07/20/16 22:20 Dose: 400 mls/hr Lactated Ringer's (Ringers, Lactated) 1,000 mls @ 250 mls/hr IV ASDIRECTED [facility] Stop: 07/20/16 14:01 Last Admin: 07/20/16 11:04 Dose: 250 mls/hr Meropenem 1 gm/ Sodium (Chloride) 50 mls @ 100 mls/hr IV Q8H [facility] Last Admin: 07/20/16 11:41 Dose: 100 mls/hr Lactated Ringer's (Ringers, Lactated) 1,000 mls @ 999 mls/hr IV BOLUS ONE Stop: 07/20/16 17:19 Last Admin: 07/20/16 21:10 Dose: 999 mls/hr Lactated Ringer's (Ringers, Lactated) Confirm Administered Dose 1,000 mls @ as directed .ROUTE .STK-MED ONE Stop: 07/20/16 18:26 Lactated Ringer's (Ringers, Lactated) Confirm Administered Dose 1,000 mls @ as directed .ROUTE .[facility] ONE Stop: 07/20/16 18:27 Dextrose/Lactated Ringer's (Dextrose 5%-Lactated Ringers) 1,000 mls @ 100 mls/ hr IV ASDIRECTED [facility] Stop: 07/23/16 09:59 Last Admin: 07/23/16 00:19 Dose: 100 mls/hr Lactated Ringer's (Ringers, Lactated) 1,000 mls @ 100 mls/hr IV ASDIRECTED [facility] Stop: 07/21/16 17:59 Last Admin: 07/21/16 07:22 Dose: 100 mls/hr Aztreonam 1 gm/ Sodium (Chloride) 50 mls @ 100 mls/hr IV Q8HR [facility] Last Admin: 07/21/16 05:06 Dose: 100 mls/hr Meropenem 500 mg/ Sodium (Chloride) 50 mls @ 100 mls/hr IV Q8H [facility] Last Admin: 07/26/16 05:17 Dose: 100 mls/hr Acetaminophen 1,000 mg/ Premix 100 mls @ 400 mls/hr IV Q6H [facility] Stop: 07/21/16 16:14 Last Admin: 07/21/16 17:12 Dose: 400 mls/hr Aztreonam/Dextrose 1 gm/ (Premix) 50 mls @ 100 mls/hr IV Q8HR [facility] Last Admin: 07/25/16 05:52 Dose: 100 mls/hr Lactated Ringer's (Ringers, Lactated) 1,000 mls @ 40 mls/hr IV ASDIRECTED [facility] Lactated Ringer's (Ringers, Lactated) 1,000 mls @ 40 mls/hr IV ASDIRECTED [facility] Last Admin: 07/23/16 03:55 Dose: 40 mls/hr Albumin Human 12.5 gm/ Premix 50 mls @ 25 mls/hr IV Q24H [facility] Stop: 07/26/16 10:59 Last Admin: 07/26/16 09:09 Dose: 25 mls/hr Albumin Human 12.5 gm/ Premix 50 mls @ 25 mls/hr IV Q24H [facility] Stop: 07/26/16 12:59 Last Admin: 07/26/16 10:44 Dose: 25 mls/hr Albumin Human 12.5 gm/ Premix 50 mls @ 25 mls/hr IV Q24H [facility] Stop: 07/26/16 14:59 Last Admin: 07/26/16 12:45 Dose: 25 mls/hr Albumin Human 12.5 gm/ Premix 50 mls @ 25 mls/hr IV Q24H [facility] Stop: 07/26/16 16:59 Last Admin: 07/26/16 15:09 Dose: 25 mls/hr Multivitamins/Minerals 10 ml/Chromium/Copper/Manganese/Seleni/Zn 1 ml/ Amino Ac/ Electrol/Dextrose/Calcium 1,011 mls @ 82 mls/hr IV .BY DURATION [facility] Last Admin: 07/23/16 10:23 Dose: 82 mls/hr Amino Ac/Electrol/Dextrose/Calcium (Clinimix E 09/27) 1,000 mls @ 82 mls/hr IV .BY DURATION [facility] Last Admin: 07/23/16 22:44 Dose: 82 mls/hr Lactated Ringer's (Ringers, Lactated) 1,000 mls @ 0 mls/hr IV ASDIRECTED [facility] PRN Reason: KVO Last Admin: 07/24/16 19:59 Dose: 25 mls/hr Acetaminophen 1,000 mg/ Premix 100 mls @ 400 mls/hr IV Q6H PRN PRN Reason: Pain Stop: 07/24/16 23:18 Last Admin: 07/24/16 20:14 Dose: 400 mls/hr Potassium Chloride 40 meq/ (Premix) 100 mls @ 25 mls/hr IV ONETIME ONE Stop: 07/24/16 12:29 Last Admin: 07/24/16 08:56 Dose: 25 mls/hr Potassium Chloride 20 meq/ (Premix) 100 mls @ 50 mls/hr IV ONETIME ONE Stop: 07/24/16 14:59 Last Admin: 07/24/16 12:31 Dose: 50 mls/hr Multivitamins/Minerals 10 ml/Chromium/Copper/Manganese/Seleni/Zn 1 ml/ Amino Ac/ Electrol/Dextrose/Calcium 1,011 mls @ 82 mls/hr IV .BY DURATION [facility] Last Admin: 07/25/16 13:40 Dose: 82 mls/hr Amino Ac/Electrol/Dextrose/Calcium (Clinimix E 15) 1,000 mls @ 82 mls/hr IV .BY DURATION [facility] Last Admin: 07/26/16 00:18 Dose: 82 mls/hr Lactated Ringer's (Ringers, Lactated) 1,000 mls @ 25 mls/hr IV ASDIRECTED [facility] PRN Reason: KVO Acetaminophen 1,000 mg/ Premix 100 mls @ 400 mls/hr IV Q6H PRN PRN Reason: Pain Stop: 07/26/16 05:10 Last Admin: 07/26/16 03:58 Dose: 400 mls/hr Vancomycin HCl 1.75 gm/ Sodium (Chloride) 250 mls @ 167 mls/hr IV ONETIME ONE Stop: 07/25/16 12:29 Last Admin: 07/25/16 11:35 Dose: 167 mls/hr Vancomycin HCl 1.5 gm/ Sodium (Chloride) 250 mls @ 167 mls/hr IV Q12H [facility] Last Admin: 07/26/16 22:58 Dose: 167 mls/hr Fluconazole/Sodium Chloride (200 mg/ Premix) 100 mls @ 100 mls/hr IV Q24H [facility] Last Admin: 08/01/16 10:04 Dose: 100 mls/hr Ceftriaxone Sodium 2 gm/ (Sodium Chloride) 50 mls @ 100 mls/hr IV Q24H [facility] Last Admin: 07/30/16 13:05 Dose: 100 mls/hr Multivitamins/Minerals 10 ml/Chromium/Copper/Manganese/Seleni/Zn 1 ml/ Amino Ac/ Electrol/Dextrose/Calcium 1,011 mls @ 82 mls/hr IV .BY DURATION [facility] Stop: 07/30/16 14:56 Last Admin: 07/29/16 17:10 Dose: 82 mls/hr Amino Ac/Electrol/Dextrose/Calcium (Clinimix E 5/15) 1,000 mls @ 82 mls/hr IV .BY DURATION [facility] Stop: 07/30/16 14:56 Last Admin: 07/30/16 05:43 Dose: 82 mls/hr Acetaminophen 1,000 mg/ Premix 100 mls @ 400 mls/hr IV Q6H PRN PRN Reason: Pain Stop: 07/27/16 23:45 Last Admin: 07/27/16 15:33 Dose: 400 mls/hr Vancomycin HCl 1.7 gm/ Sodium (Chloride) 250 mls @ 167 mls/hr IV Q12H [facility] Last Admin: 07/29/16 23:37 Dose: 167 mls/hr Sodium Chloride (Normal Saline) 85 mls @ 3 mls/sec IV ASDIRECTED [facility] Last Admin: 07/30/16 03:03 Dose: 3 mls/sec Multivitamins/Minerals 10 ml/Chromium/Copper/Manganese/Seleni/Zn 1 ml/ Amino Ac/ Electrol/Dextrose/Calcium 1,011 mls @ 82 mls/hr IV .BY DURATION [facility] Stop: 08/01/16 16:00 Last Admin: 07/31/16 19:11 Dose: 82 mls/hr Amino Ac/Electrol/Dextrose/Calcium (Clinimix E 5/15) 1,000 mls @ 82 mls/hr IV .BY DURATION [facility] Stop: 08/01/16 16:00 Last Admin: 08/01/16 07:33 Dose: 82 mls/hr Vancomycin HCl 1.5 gm/ Sodium (Chloride) 250 mls @ 167 mls/hr IV Q12H [facility] Last Admin: 08/02/16 04:03 Dose: 167 mls/hr Metronidazole 500 mg/ Premix 100 mls @ 100 mls/hr IV Q8H [facility] Last Admin: 08/02/16 08:10 Dose: Not Given Ciprofloxacin/Dextrose 400 mg/ (Premix) 200 mls @ 200 mls/hr IV Q12H [facility] Last Admin: 08/03/16 13:54 Dose: 200 mls/hr Magnesium Sulfate 2 gm/ Premix 50 mls @ 25 mls/hr IV Q6HR [facility] Stop: 08/03/16 05:59 Last Admin: 08/03/16 04:05 Dose: 25 mls/hr Multivitamins/Minerals 10 ml/Chromium/Copper/Manganese/Seleni/Zn 1 ml/ Amino Ac/ Electrol/Dextrose/Calcium 1,011 mls @ 40 mls/hr IV .BY DURATION [facility] Amino Ac/Electrol/Dextrose/Calcium (Clinimix E 5/15) 1,000 mls @ 40 mls/hr IV .BY DURATION [facility] Dextrose/Lactated Ringer's (Dextrose 5%-Lactated Ringers) 1,000 mls @ 60 mls/ hr IV ASDIRECTED [facility] Last Admin: 08/03/16 16:04 Dose: 60 mls/hr Aztreonam/Dextrose 1 gm/ (Premix) 50 mls @ 100 mls/hr IV Q8H [facility] Last Admin: 08/05/16 03:49 Dose: 100 mls/hr Lactated Ringer's (Ringers, Lactated) 1,000 mls @ 500 mls/hr IV ASDIRECTED [facility] Stop: 08/03/16 21:31 Last Admin: 08/03/16 20:08 Dose: 500 mls/hr Lactated Ringer's (Ringers, Lactated) 1,000 mls @ 125 mls/hr IV ASDIRECTED [facility] Last Admin: 08/04/16 08:39 Dose: 125 mls/hr Meropenem 1 gm/ Sodium (Chloride) 50 mls @ 100 mls/hr IV Q8H [facility] Last Admin: 08/05/16 02:24 Dose: 100 mls/hr Lactated Ringer's (Ringers, Lactated) 1,000 mls @ 50 mls/hr IV ASDIRECTED [facility] Last Admin: 08/05/16 02:24 Dose: 50 mls/hr Ibuprofen (Motrin) 600 mg PO Q6H [facility] Last Admin: 08/03/16 14:30 Dose: 600 mg Iopamidol (Isovue-300 (61%)) 150 ml IV . DIRECTED [facility] Stop: 07/30/16 02:31 Last Admin: 07/30/16 03:03 Dose: 150 ml Ketorolac Tromethamine (Toradol) 60 mg IM ONETIME ONE Stop: 07/19/16 17:04 Last Admin: 07/19/16 17:30 Dose: 60 mg Labetalol HCl (Normodyne) 5 - 10 mg IV Q2H PRN PRN Reason: BP Last Admin: 07/25/16 05:19 Dose: 10 mg Labetalol HCl (Normodyne) Confirm Administered Dose 20 mg .ROUTE .STK-MED ONE Stop: 07/25/16 05:16 Last Admin: 07/25/16 08:49 Dose: Not Given Labetalol HCl (Normodyne) 0 mg IV Q2H PRN PRN Reason: BP Last Admin: 07/26/16 11:21 Dose: 10 mg Lidocaine HCl (Xylocaine 2% Jelly) 10 ml MUCMEM ONETIME ONE Stop: 07/16/16 21:15 Last Admin: 07/16/16 21:41 Dose: 10 ml Lidocaine/Epinephrine (Xylocaine 1% With Epinephrine 1:100,000) Confirm Administered Dose 50 ml .ROUTE .STK-MED ONE Stop: 07/22/16 06:41 Last Admin: 07/22/16 07:34 Dose: 20 ml Lorazepam (Ativan) 0.5 - 1 mg IVPUSH Q4H PRN PRN Reason: Anxiety Lorazepam (Ativan) 0.5 mg IVPUSH Q2H PRN PRN Reason: Anxiety Last Admin: 07/23/16 16:53 Dose: 0.5 mg Lorazepam (Ativan) 0.5 mg PO Q4H PRN PRN Reason: Anxiety Last Admin: 08/01/16 05:30 Dose: 0.5 mg Losartan Potassium (Cozaar) 50 mg PO DAILY RUMA Last Admin: 07/20/16 09:21 Dose: 50 mg Magnesium Citrate (Citrate Of Magnesia) 296 ml PO ONETIME ONE Stop: 07/18/16 09:01 Last Admin: 07/18/16 10:55 Dose: 296 ml Magnesium Hydroxide (Milk Of Magnesia) 30 ml PO ONETIME ONE Stop: 07/19/16 08:46 Last Admin: 07/19/16 10:27 Dose: 30 ml Magnesium Hydroxide (Milk Of Magnesia) 30 ml PO ONETIME ONE Stop: 07/26/16 09:01 Last Admin: 07/26/16 09:09 Dose: 30 ml Magnesium Hydroxide (Milk Of Magnesia) 30 ml PO Q4H PRN PRN Reason: Constipation Magnesium Hydroxide (Milk Of Magnesia) 30 ml PO ONETIME ONE Stop: 07/29/16 09:01 Last Admin: 07/29/16 11:00 Dose: 30 ml Meperidine HCl (Demerol) 100 mg IM ONETIME ONE Stop: 07/20/16 16:01 Last Admin: 07/20/16 16:05 Dose: 100 mg Meperidine HCl (Demerol) 100 mg IM ONETIME ONE Stop: 07/22/16 06:14 Last Admin: 07/22/16 06:28 Dose: 100 mg Meropenem (Merrem) Confirm Administered Dose 500 mg .ROUTE .STK-MED ONE Stop: 07/16/16 06:43 Last Admin: 07/16/16 09:25 Dose: 500 mg Meropenem (Merrem) Confirm Administered Dose 2,000 mg .ROUTE .STK-MED ONE Stop: 07/20/16 17:25 Last Admin: 07/20/16 17:25 Dose: 2,000 mg Meropenem (Merrem) Confirm Administered Dose 500 mg .ROUTE .STK-MED ONE Stop: 07/22/16 06:41 Last Admin: 07/22/16 07:34 Dose: 500 mg Midazolam HCl (Versed 1 Mg/Ml) Confirm Administered Dose 2 mg .ROUTE .STK-MED ONE Stop: 07/20/16 16:46 Midazolam HCl (Versed 1 Mg/Ml) Confirm Administered Dose 2 mg .ROUTE .STK-MED ONE Stop: 07/22/16 07:04 Morphine Sulfate (Morphine Hostel Manager 150 Mg In 30 Ml) 150 mg IV ASDIRECTED RUMA PRN Reason: Protocol Last Admin: 07/22/16 06:49 Dose: 150 mg Morphine Sulfate (Morphine Hostel Manager 150 Mg In 30 Ml) 0 mg IV ASDIRECTED PRN; Protocol PRN Reason: PAIN Last Admin: 07/26/16 03:12 Dose: 150 mg Naloxone HCl (Narcan) 0.1 mg IV ASDIRECTED PRN PRN Reason: decreased respiratory rate Naloxone HCl (Narcan) 0.1 mg IV ASDIRECTED PRN PRN Reason: decreased respiratory rate Naloxone HCl (Narcan) Confirm Administered Dose 0.4 mg .ROUTE .STK-MED ONE Stop: 07/20/16 20:01 Naloxone HCl (Narcan) 0.1 mg IV ASDIRECTED PRN PRN Reason: decreased respiratory rate Naloxone HCl (Narcan) 0.1 mg IV ASDIRECTED PRN PRN Reason: decreased respiratory rate Neostigmine Methylsulfate (Neostigmine) Confirm Administered Dose 5 mg .ROUTE .STK-MED ONE Stop: 07/16/16 07:27 Neostigmine Methylsulfate (Neostigmine) Confirm Administered Dose 5 mg .ROUTE .STK-MED ONE Stop: 07/20/16 16:44 Nitroglycerin (Nitrostat) 0.4 mg SL Q5M PRN PRN Reason: CHEST PAIN Fentanyl Patch Check 0 each TOP DAILY [facility] Last Admin: 07/20/16 09:27 Dose: 1 each Fentanyl Patch Check 0 each TOP DAILY@2200 [facility] Last Admin: 07/20/16 22:19 Dose: Not Given Verify Fentanyl (Patch) 0 each TOP BID [facility] Last Admin: 07/24/16 23:12 Dose: Not Given Non-Formulary Medication (Total Parenteral Nutrition, Central) 1,000 ml .XX .Continue Order [facility] Stop: 07/27/16 16:00 Non-Formulary Medication (Total Parenteral Nutrition, Central) 1,000 ml .XX .Continue Order [facility] Stop: 07/29/16 23:00 Non-Formulary Medication (Total Parenteral Nutrition, Central) 1,000 ml .XX .Continue Order [facility] Stop: 07/30/16 14:00 Non-Formulary Medication (Total Parenteral Nutrition, Central) 1,000 ml .XX .Continue Order [facility] Stop: 07/31/16 14:00 Non-Formulary Medication (Total Parenteral Nutrition, Central) 1,000 ml .XX .Continue Order [facility] Stop: 08/01/16 14:00 Non-Formulary Medication (Total Parenteral Nutrition, Central) 1,000 ml .XX .Continue Order [facility] Stop: 08/02/16 16:00 Ondansetron HCl (Zofran) Confirm Administered Dose 4 mg .ROUTE .STK-MED ONE Stop: 07/16/16 07:27 Ondansetron HCl (Zofran) 4 mg IVPUSH Q4H PRN PRN Reason: NAUSEA Last Admin: 07/17/16 10:56 Dose: 4 mg Ondansetron HCl (Zofran) Confirm Administered Dose 4 mg .ROUTE .STK-MED ONE Stop: 07/20/16 16:44 Oxycodone HCl (Oxycodone) 5 - 10 mg PO Q4H PRN PRN Reason: Pain Last Admin: 07/28/16 12:27 Dose: 10 mg Oxycodone/Acetaminophen (Percocet 325-5 Mg) 1 - 2 tab PO Q4H PRN PRN Reason: PAIN Last Admin: 07/20/16 03:34 Dose: 2 tab Pantoprazole Sodium (Protonix Iv) 40 mg IV Q24H RUMA Last Admin: 07/25/16 20:56 Dose: 40 mg Polyethylene Glycol (Miralax) 119 gm PO ONETIME ONE Stop: 07/20/16 10:01 Last Admin: 07/20/16 09:35 Dose: 119 gm Propofol (Diprivan 20 Ml) Confirm Administered Dose 200 mg .ROUTE .STK-MED ONE Stop: 07/16/16 07:27 Propofol (Diprivan 20 Ml) Confirm Administered Dose 200 mg .ROUTE .STK-MED ONE Stop: 07/20/16 16:44 Propofol (Diprivan 20 Ml) Confirm Administered Dose 200 mg .ROUTE .STK-MED ONE Stop: 07/22/16 07:04 Rocuronium [place] (Zemuron) Confirm Administered Dose 50 mg .ROUTE .STK-MED ONE Stop: 07/16/16 07:27 Rocuronium [place] (Zemuron) Confirm Administered Dose 50 mg .ROUTE .STK-MED ONE Stop: 07/20/16 16:44 Rocuronium [place] (Zemuron) Confirm Administered Dose 50 mg .ROUTE .STK-MED ONE Stop: 07/20/16 18:24 Sodium Chloride (Saline Flush) 10 ml IV ASDIRECTED PRN PRN Reason: LINE FLUSH Sodium Chloride (Saline Flush) 10 ml FLUSH ONETIME ONE Stop: 07/30/16 02:22 Last Admin: 07/30/16 03:03 Dose: 10 ml Succinylcholine Chloride (Succinylcholine In Ns Pf) Confirm Administered Dose 200 mg .ROUTE .STK-MED ONE Stop: 07/16/16 07:27 Succinylcholine Chloride (Succinylcholine In Ns Pf) Confirm Administered Dose 200 mg .ROUTE .STK-MED ONE Stop: 07/20/16 16:44 Tamsulosin HCl (Flomax) 0.4 mg PO BEDTIME RUMA Last Admin: 07/19/16 21:18 Dose: 0.4 mg Tamsulosin HCl (Flomax) 0.4 mg PO ONETIME ONE Stop: 07/17/16 09:01 Last Admin: 07/17/16 10:18 Dose: 0.4 mg Tamsulosin HCl (Flomax) 0.4 mg PO ONETIME ONE Stop: 07/24/16 08:31 Last Admin: 07/24/16 09:06 Dose: 0.4 mg Tramadol HCl (Ultram) 50 - 100 mg PO Q4H PRN PRN Reason: Pain Last Admin: 08/03/16 11:22 Dose: 100 mg Vancomycin HCl (Vancomycin) 1 gm IV .PHARMACY TO DOSE RUMA Stop: 07/25/16 12:00 - Exam Quality Assessment: DVT prophylaxis General: alert, oriented, cooperative Lungs: Clear to auscultation, Normal respiratory effort Cardiovascular: Regular Rate, Regular Rhythm, No Murmurs Abdomen: bowel sounds present, soft, no distension, tenderness. No: rigidity, rebound, guarding Extremities: no edema Skin: warm, dry, intact Psy/Mental Status: alert, normal affect, normal mood - Problem List Review Problem List Initiated/Reviewed/Updated: Yes - My Orders Last 24 Hours: My Active Orders 08/04/16 09:31 Consult to Dietary [Consult to Legal Nurse Consultant] [CONS] Routine 08/04/16 12:57 traMADol [Ultram] 50 mg PO Q4H PRN 08/04/16 15:37 diphenhydrAMINE [Benadryl] 50 mg PO BEDTIME PRN 08/05/16 09:23 Convert IV to Saline Lock [OM.PC] Routine 08/05/16 09:28 Vital Signs [RC] Q4H 08/05/16 09:30 cefTRIAXone [Rocephin] 1 gm Sodium Chloride 0.9% [Normal Saline] 50 ml IV Q24H - Plan Plan:: ASSESSMENT AND RECOMMENDATIONS Delirium and hallucinations-resolved -Monitor closely RECURRENT FEVER WITH DEVELOPING SEPSIS - status post delayed primary closure done 07/24. Over the past 24 hours has redeveloped temperature elevation, wounds were open this morning for drainage and he is been started on IV Zyvox. Previous cultures grew enterococcus and Escherichia coli, as well as yeast. He is done well over the past 24 hours, with no recurrent fevers. Escherichia coli growing from most recent wound cultures, sensitive to current antibiotics. We'll plan to simplify current antibiotic regimen. -Saline lock IV -Continue Zyvox -Discontinue meropenem and Azactam -Rocephin 1 g IV every 24 hours Thrush - pain and exam both continue to improve with current cares -Continue oral nystatin and Magic mouthwash ACUTE KIDNEY INJURY - renal function has stabilized and improved with IV fluids -Continue to monitor urine output and renal function closely - Saline lock IV -Hold ibuprofen until renal function improves STATUS POST ABDOMINAL WALL HERNIA REPAIR - Appetite improving each day. -Continue current diet CORONARY ARTERY DISEASE-asymptomatic
[2016-08-05] MEDS: Acetaminophen 325 MG Tab PO PRN ×3 (10:55→21:06)
[2016-08-05] MEDS: cefTRIAXone 1 GM in Sodium Chloride 0.9% 50 ML IV SCH (11:00)
--- NOTE | 2016-08-05 14:10 | PN ---
DATE OF SERVICE: 08/04/2016 Overnight, the patient has defervesced with a T-max overnight being over 99, he is also quite a bit more clear-headed. He was brought down to the ICU last night per Dr. Brody as in the afternoon he was looking perhaps more septic. Antibiotic coverage was broadened out. This morning, he is alert, afebrile with stable vital signs. The wound is strikingly cleaned up, I think the peroxide was helpful in that regard, and at that point, there does not appear to be any need for any additional drainage. I suspect the fever and septic appearance that he had was related to the wound. With a broadened antibiotic coverage, we will make sure we are not missing something in terms of infection involving the central line or such as well. Otherwise, we will begin teaching the how to do the dressing changes. It is uncertain whether or not there is home care coverage with her insurance. Continue to maximize activity and work with pulmonary toilet. Sg Youngblood MD /[id number]
[2016-08-05] MEDS: diphenhydrAMINE 25 MG Cap PO PRN (21:06)
[2016-08-05] MEDS: Pantoprazole 40 MG Tab.CR PO SCH (21:07)
[2016-08-05] MEDS: Tamsulosin 0.4 MG Cap.ER PO SCH (21:10)
[2016-08-06] MEDS: Linezolid 600 MG in Premix Bag 1 BAG IV SCH ×2 (00:51→13:42)
[2016-08-06] MEDS: traMADol 50 MG Tab PO PRN ×3 (02:16→13:31)
[2016-08-06] MEDS: diphenhydrAMINE 25 MG Cap PO PRN (02:16)
[2016-08-06] MEDS: Magnesium Sulfate/Water 2 GM in Premix Bag 1 BAG IV SCH ×4 (02:17→19:36)
[2016-08-06] MEDS: Nystatin Susp 100,000 Unit/ML 5 ML UD Cup PO SCH (07:13)
[2016-08-06] MEDS: Albuterol/Ipratropium 3.0-0.5 MG/3 ML Neb Soln INH SCH ×4 (07:23→21:17)
[2016-08-06] MEDS: Losartan 50 MG Tab PO SCH (08:30)
[2016-08-06] MEDS: Lactobacillus Rhamnosus GG (Probiotic) Cap PO SCH ×2 (08:30→21:17)
[2016-08-06] MEDS: Inulin 1.5 GM Chewable Tab PO SCH ×2 (08:31→21:17)
[2016-08-06] MEDS: Loperamide 2 MG Cap PO SCH ×3 (08:31→16:32)
[2016-08-06] MEDS: Fluconazole 100 MG Tab PO SCH (08:33)
--- NOTE | 2016-08-06 09:00 | PN ---
DATE OF SERVICE: 08/06/2016 SUBJECTIVE: Srinivas did have a temp max at 2200 hours of 100.1. He has been up, ambulating. His wound has been packed appropriately. He is refusing and/or reluctantly taking the nystatin, he would prefer pill. States his pain is controlled. Oral intake was 880 yesterday or in the past 24 hours. He did consume 100% of dinner last evening. REVIEW OF SYSTEMS: All 12 systems were reviewed and negative for any other pertinent positives or negatives. OBJECTIVE: GENERAL: Srinivas is a 66-year-old male. VITAL SIGNS: TPR is 98.7, 82, 16. Blood pressure 127/77. HEENT: Negative. NECK: Supple. HEART: Regular rate and rhythm. LUNGS: Clear. ABDOMEN: Dressings dry and intact. Abdominal binder is on. EXTREMITIES: Without peripheral edema. ASSESSMENT: 1. Diagnostic laparoscopy, lysis of adhesions for recurrent incarcerated umbilical hernia with mesh removal, previous mesh placement of Vicryl mesh to displace small bowel and omentum from newly placed mesh to limit recurrent adhesive formation, pelvic and abdominal wound and on associated areas of mesh placement for recurrent pelvic and abdominal wall and associated areas of mesh placement for recurrent incarcerated hernia, extensive adhesion between the previously placed mesh and some of the bowel. Date of surgery 07/16/2016. 2. Exploratory laparotomy with distal resection for a total colectomy, removal of intraperitoneal mesh, insertion of central vein catheter, 07/20/2016. 3. Delayed primary closure, 07/22/2016. 4. Open incision. PLAN: 1. Rx Diflucan 200 mg p.o. daily. 2. Discontinue nystatin swish and swallow. 3. Teach how to pack and change dressing. 4. High fiber diet. 5. Dietary consult for teaching of high fiber diet. 6. Shower daily. 7. Plan on discharge this weekend if antibiotics can be tolerated orally. Lidia Rao PA-C /[id number]
[2016-08-06] MEDS: cefTRIAXone 1 GM in Sodium Chloride 0.9% 50 ML IV SCH (10:38)
--- NOTE | 2016-08-06 12:11 | PCM.PN ---
- General Info Date of Service: 08/06/16 Functional Status: Reports: pain controlled, tolerating diet, ambulating, urinating - Review of Systems General: Reports: Weakness. Denies: Fever, Chills Pulmonary: Reports: no symptoms Cardiovascular: Reports: No Symptoms Gastrointestinal: Reports: Abdominal pain. Denies: Difficulty swallowing, Nausea, Vomiting Systems Review Comment:: This patient has continued to show improvement on a daily basis. He's tolerating his current diet and has been up and ambulating in the hallways. No significant temperature elevation over the past 24 hours and vital signs have been stable. - Patient Data Vitals - most recent: Last Vital Signs Temp 99.2 F 08/06/16 11:16 Pulse 84 08/06/16 11:16 Resp 16 08/06/16 11:16 BP 133/73 08/06/16 11:16 Pulse Ox 94 L 08/06/16 11:16 Weight - most recent: 245 lb 6.4 oz I&O - last 24 hours: Intake & Output 08/05/16 08/06/16 08/06/16 22:59 06:59 14:59 Intake Total 580 450 170 Output Total 250 400 400 Balance 330 50 -230 Lab Results last 24 hrs: Laboratory Results - last 24 hr 08/06/16 08/06/16 Range/Units 04:12 04:12 WBC 5.7 (4.5-11.0) K/uL RBC 3.95 L (4.30-5.90) M/uL Hgb 11.4 L (12.0-15.0) g/dL Hct 34.8 L (40.0-54.0) % MCV 88 (80-98) fL MCH 29 (27-31) pg MCHC 33 (32-36) % Plt Count 340 (150-400) K/uL Sodium 138 L (140-148) mmol/L Potassium 4.2 (3.6-5.2) mmol/L Chloride 104 (100-108) mmol/L Carbon Dioxide 23 (21-32) mmol/L Anion Gap 15.2 H (5.0-14.0) mmol/L BUN 16 (7-18) mg/dL Creatinine 1.2 (0.8-1.3) mg/dL Est Cr Clr Drug Dosing 64.37 mL/min Estimated GFR (MDRD) > 60 (>60) Glucose 92 (74-106) mg/dL Calcium 7.2 L (8.5-10.1) mg/dL Phosphorus 3.4 (2.5-4.9) mg/dL Total Bilirubin 0.3 (0.2-1.0) mg/dL AST 31 (15-37) U/L ALT 52 (12-78) U/L Alkaline Phosphatase 56 (46-116) U/L Total Protein 6.1 L (6.4-8.2) g/dL Albumin 1.9 L (3.4-5.0) g/dL Globulin 4.2 H (2.3-3.5) g/dL Albumin/Globulin Ratio 0.5 L (1.2-2.2) Boby Results last 24 hrs: Microbiology 08/03/16 08:18 Anaerobic Culture - Final Ricky Corona Drainage NO GROWTH AFTER 3 DAYS 08/03/16 08:18 Anaerobic Culture - Final Ricky Corona Drainage NO GROWTH AFTER 3 DAYS 08/03/16 08:18 Gram Stain - Final Abdomen - Incision Wound Culture - Final YEAST 08/02/16 21:45 Aerobic Blood Culture - Preliminary Blood - Arm, Right NO GROWTH AFTER 3 DAYS Anaerobic Blood Culture - Preliminary NO GROWTH AFTER 3 DAYS 08/02/16 21:35 Aerobic Blood Culture - Preliminary Blood - Arm, Right NO GROWTH AFTER 3 DAYS Anaerobic Blood Culture - Preliminary NO GROWTH AFTER 3 DAYS Med Orders - Current: Current Medications Acetaminophen (Tylenol) 650 mg PO Q4H PRN PRN Reason: Pain Last Admin: 08/05/16 21:06 Dose: 650 mg Albuterol/Ipratropium (Duoneb 3.0-0.5 Mg/3 Ml) 3 ml INH QIDRT RUMA Last Admin: 08/06/16 10:50 Dose: 3 ml Benzocaine/Menthol (Cepacol Sore Throat) 1 lozenge MUCMEM Q1H PRN PRN Reason: Pain Dimethicone/Zinc Oxide (Rash Relief-Zinc Oxide [place]) 0 gm TOP ASDIRECTED PRN PRN Reason: Rash Diphenhydramine HCl (Benadryl) 50 mg PO BEDTIME PRN PRN Reason: Sleep Last Admin: 08/06/16 02:16 Dose: 50 mg Diphenoxylate HCl/Atropine (Lomotil 0.025-2.5 Mg) 1 tab PO Q6H PRN PRN Reason: Diarrhea Last Admin: 08/05/16 04:15 Dose: 1 tab Fluconazole (Diflucan) 200 mg PO DAILY [facility] Last Admin: 08/06/16 08:33 Dose: 200 mg Heparin Sodium (Porcine) (Heparin Lock Flush 100 Units/Ml Syringe) 500 units FLUSH ASDIRECTED PRN PRN Reason: IV Use Last Admin: 08/05/16 10:24 Dose: 500 units Magnesium Sulfate 2 gm/ Premix 50 mls @ 25 mls/hr IV Q6H [facility] Stop: 08/08/16 03:59 Last Admin: 08/06/16 08:29 Dose: 25 mls/hr Inulin (Fiber Choice) 4.5 gm PO BID [facility] Last Admin: 08/06/16 08:31 Dose: 4.5 gm Lactobacillus Rhamnosus (Culturelle) 2 cap PO BID [facility] Last Admin: 08/06/16 08:30 Dose: 2 cap Loperamide HCl (Imodium) 2 mg PO TIDAC [facility] Last Admin: 08/06/16 08:31 Dose: 2 mg Lorazepam (Ativan) 1 mg PO Q4H PRN PRN Reason: Anxiety Last Admin: 08/03/16 05:37 Dose: 1 mg Losartan Potassium (Cozaar) 50 mg PO DAILY [facility] Last Admin: 08/06/16 08:30 Dose: 50 mg Nitroglycerin (Nitrostat) 0.4 mg SL Q5M PRN PRN Reason: CHEST PAIN Ondansetron HCl (Zofran) 4 mg IVPUSH Q4H PRN PRN Reason: NAUSEA Last Admin: 08/02/16 10:00 Dose: 4 mg Pantoprazole Sodium (Protonix) 40 mg PO BEDTIME [facility] Last Admin: 08/05/16 21:07 Dose: 40 mg Tamsulosin HCl (Flomax) 0.4 mg PO BEDTIME [facility] Last Admin: 08/05/16 21:10 Dose: 0.4 mg Tramadol HCl (Ultram) 50 mg PO Q4H PRN PRN Reason: Pain Last Admin: 08/06/16 09:28 Dose: 50 mg Discontinued Medications Acetaminophen (Tylenol) 650 mg PO Q4H PRN PRN Reason: Fever Last Admin: 07/26/16 19:54 Dose: 650 mg Acetaminophen (Tylenol) 650 mg PO Q4H PRN PRN Reason: Pain (mild 1-3) Last Admin: 07/29/16 00:39 Dose: 650 mg Acetaminophen (Tylenol) 650 mg PO Q4H PRN PRN Reason: Pain (mild 1-3) Acetaminophen (Tylenol) 650 mg GTUBE Q4H PRN PRN Reason: Pain (mild 1-3) Last Admin: 08/03/16 02:08 Dose: 650 mg Albuterol (Proventil Neb Soln) 2.5 mg NEB Q4H PRN PRN Reason: Dyspnea Last Admin: 07/20/16 16:13 Dose: 2.5 mg Albuterol/Ipratropium (Duoneb 3.0-0.5 Mg/3 Ml) 3 ml INH ASDIRECTED PRN PRN Reason: * Last Admin: 07/23/16 23:50 Dose: 3 ml Bacitracin (Bacitracin Oint) 0 gm TOP TID [facility] Last Admin: 07/20/16 13:58 Dose: 1 applic Bisacodyl (Dulcolax) 10 mg PO BID [facility] Last Admin: 07/20/16 09:22 Dose: 10 mg Bisacodyl (Dulcolax) 10 mg RECTAL BID PRN PRN Reason: Constipation Last Admin: 07/19/16 17:31 Dose: 10 mg Bisacodyl (Dulcolax) 20 mg PO ONETIME ONE Stop: 07/26/16 10:01 Last Admin: 07/26/16 09:09 Dose: 20 mg Bisacodyl (Dulcolax) 10 mg RECTAL BID [facility] Last Admin: 07/26/16 21:21 Dose: 10 mg Bisacodyl (Dulcolax) 10 mg RECTAL DAILY PRN PRN Reason: Constipation Bisacodyl (Dulcolax) 20 mg PO ONETIME ONE Stop: 07/29/16 10:01 Last Admin: 07/29/16 12:58 Dose: 20 mg Bupivacaine HCl (Marcaine 0.5%) Confirm Administered Dose 50 ml .ROUTE .STK-MED ONE Stop: 07/22/16 06:41 Last Admin: 07/22/16 07:34 Dose: 20 ml Bupivacaine HCl/Epinephrine Bitart (Marcaine 0.5%/Epinephrine 1:200,000) Confirm Administered Dose 50 ml .ROUTE .STK-MED ONE Stop: 07/16/16 06:43 Last Admin: 07/16/16 07:28 Dose: 10 ml Buspirone HCl (Buspar) 15 mg PO DAILY [facility] Last Admin: 07/20/16 09:21 Dose: 15 mg Buspirone HCl (Buspar) 7.5 mg PO QPM [facility] Last Admin: 07/20/16 17:57 Dose: Not Given Buspirone HCl (Buspar) 15 mg PO DAILY [facility] Last Admin: 07/29/16 10:59 Dose: 15 mg Buspirone HCl (Buspar) 7.5 mg PO BEDTIME [facility] Last Admin: 07/28/16 20:52 Dose: 7.5 mg Lidocaine HCl 30 ml/ Al Hydroxide/Mg Hydroxide 30 ml/Diphenhydramine HCl 75 mg 0 ml PO QID [facility] Last Admin: 08/03/16 16:06 Dose: 15 ml Dexamethasone (Dexamethasone) Confirm Administered Dose 4 mg .ROUTE .STK-MED ONE Stop: 07/16/16 07:27 Dexamethasone (Dexamethasone) Confirm Administered Dose 4 mg .ROUTE .STK-MED ONE Stop: 07/20/16 16:44 Diatrizoate Meglum/Diatrizoate Sod (Gastrografin 37%) 1,200 ml .XX . DIRECTED [facility] Stop: 07/20/16 14:16 Last Admin: 07/20/16 15:27 Dose: 1,200 ml Diphenhydramine HCl (Benadryl) 25 mg PO BEDTIME PRN PRN Reason: Sleep Last Admin: 07/29/16 00:39 Dose: 25 mg Diphenhydramine HCl (Benadryl) 25 mg PO BEDTIME PRN PRN Reason: SLEEP Diphenhydramine HCl (Benadryl) 25 mg GTUBE BEDTIME PRN PRN Reason: SLEEP Docusate Sodium (Colace) 100 mg PO BID [facility] Last Admin: 07/28/16 20:52 Dose: 100 mg Docusate Sodium (Colace 50 Mg/5 Ml Liquid) 100 mg GTUBE BID [facility] Last Admin: 07/31/16 21:13 Dose: 100 mg Fentanyl (Sublimaze) Confirm Administered Dose 500 mcg .ROUTE .STK-MED ONE Stop: 07/16/16 07:27 Fentanyl (Sublimaze) Confirm Administered Dose 250 mcg .ROUTE .STK-MED ONE Stop: 07/16/16 09:21 Fentanyl (Duragesic) 25 mcg TRDERM Q72H [facility] Last Admin: 07/20/16 09:24 Dose: 25 mcg Fentanyl (Sublimaze) Confirm Administered Dose 250 mcg .ROUTE .STK-MED ONE Stop: 07/20/16 16:45 Fentanyl (Sublimaze) Confirm Administered Dose 250 mcg .ROUTE .STK-MED ONE Stop: 07/20/16 18:24 Fentanyl (Duragesic) 25 mcg TRDERM Q72H [facility] Last Admin: 07/20/16 22:18 Dose: Not Given Fentanyl (Duragesic) 25 mcg TRDERM Q72H RUMA Fentanyl (Sublimaze) Confirm Administered Dose 100 mcg .ROUTE .STK-MED ONE Stop: 07/22/16 07:04 Fentanyl (Duragesic) 50 mcg TRDERM Q72H [facility] Last Admin: 07/22/16 09:40 Dose: 50 mcg Furosemide (Lasix) 20 mg IVPUSH Q8H [facility] Last Admin: 07/24/16 15:59 Dose: Not Given Glycopyrrolate () Confirm Administered Dose 1 mg .ROUTE .STK-MED ONE Stop: 07/16/16 07:27 Glycopyrrolate () Confirm Administered Dose 1 mg .ROUTE .STK-MED ONE Stop: 07/20/16 16:44 Haloperidol Lactate (Haldol) 2.5 mg IVPUSH ONETIME ONE Stop: 07/23/16 06:18 Last Admin: 07/23/16 06:26 Dose: 2.5 mg Haloperidol Lactate (Haldol) 2.5 mg IVPUSH Q1H PRN PRN Reason: PSYCHOSIS/ANXIETY Last Admin: 07/23/16 18:10 Dose: 2.5 mg Heparin Sodium (Porcine) (Heparin Lock Flush 100 Units/Ml Syringe) Confirm Administered Dose 500 units .ROUTE .STK-MED ONE Stop: 07/20/16 17:25 Last Admin: 07/20/16 17:28 Dose: 500 units Heparin Sodium (Porcine) (Heparin Sodium) Confirm Administered Dose 5,000 units .ROUTE .STK-MED ONE Stop: 07/20/16 20:54 Last Admin: 07/20/16 21:06 Dose: 5,000 units Hydromorphone HCl (Dilaudid [employer] 15 Mg In Ns 30 Ml) 0 mg IV ASDIRECTED PRN; Protocol PRN Reason: Pain Last Admin: 07/16/16 07:37 Dose: 0.3 mg Hydromorphone HCl (Dilaudid [employer] 15 Mg In Ns 30 Ml) 0 mg IV ASDIRECTED PRN; Protocol PRN Reason: PAIN Last Admin: 07/20/16 07:38 Dose: 15 mg Hydromorphone HCl (Dilaudid [employer] 15 Mg In Ns 30 Ml) 0 mg IV ASDIRECTED PRN; Protocol PRN Reason: PAIN Last Admin: 07/21/16 07:19 Dose: 15 mg Hydromorphone HCl (Dilaudid) 0.5 - 1 mg IVPUSH Q2H PRN PRN Reason: Pain (severe 7-10) Last Admin: 07/27/16 00:30 Dose: 1 mg Hydroxyzine HCl (Vistaril) 100 mg IM Q4H PRN PRN Reason: Pain Last Admin: 07/20/16 14:41 Dose: 100 mg Hydroxyzine HCl (Vistaril) 100 mg IM Q4H PRN PRN Reason: PAIN Last Admin: 07/26/16 12:16 Dose: 100 mg Hydroxyzine HCl (Vistaril) 50 mg IM ONETIME ONE Stop: 07/22/16 06:14 Last Admin: 07/22/16 06:29 Dose: 50 mg Clindamycin Phosphate 900 mg/ (Sodium Chloride) 106 mls @ 212 mls/hr IV ONETIME ONE Stop: 07/16/16 07:59 Last Admin: 07/16/16 07:48 Dose: 212 mls/hr Dextrose/Lactated Ringer's (Dextrose 5%-Lactated Ringers) 1,000 mls @ 100 mls/ hr IV ASDIRECTED RUAM Last Admin: 07/16/16 07:37 Dose: 100 mls/hr Lactated Ringer's (Ringers, Lactated) Confirm Administered Dose 1,000 mls @ as directed .ROUTE .STK-MED ONE Stop: 07/16/16 09:17 Dextrose/Lactated Ringer's (Dextrose 5%-Lactated Ringers) 1,000 mls @ 150 mls/ hr IV ASDIRECTED RUMA Last Admin: 07/18/16 04:26 Dose: 150 mls/hr Cefazolin Sodium 2 gm/ Sodium (Chloride) 50 mls @ 100 mls/hr IV Q8H [facility] Stop: 07/17/16 06:29 Last Admin: 07/17/16 05:08 Dose: 100 mls/hr Dextrose/Lactated Ringer's (Dextrose 5%-Lactated Ringers) 1,000 mls @ 100 mls/ hr IV ASDIRECTED [facility] Last Admin: 07/19/16 14:53 Dose: 100 mls/hr Acetaminophen 1,000 mg/ Premix 100 mls @ 400 mls/hr IV Q6H PRN PRN Reason: PAIN Stop: 07/20/16 10:30 Acetaminophen 1,000 mg/ Premix 100 mls @ 400 mls/hr IV NOW ONE Stop: 07/20/16 07:32 Last Admin: 07/20/16 07:31 Dose: 400 mls/hr Lactated Ringer's (Ringers, Lactated) 1,000 mls @ [facility],000 [facility]: 07/20/16 09:31 Last Admin: 07/20/16 09:10 Dose: 1,000 mls/hr Levofloxacin/Dextrose 500 mg/ (Premix) 100 mls @ 100 mls/hr IV Q24H [facility] Last Admin: 07/20/16 09:22 Dose: 100 mls/hr Acetaminophen 1,000 mg/ Premix 100 mls @ 400 mls/hr IV Q6H [facility] Last Admin: 07/20/16 22:20 Dose: 400 mls/hr Lactated Ringer's (Ringers, Lactated) 1,000 mls @ 250 mls/hr IV ASDIRECTED [facility] Stop: 07/20/16 14:01 Last Admin: 07/20/16 11:04 Dose: 250 mls/hr Meropenem 1 gm/ Sodium (Chloride) 50 mls @ 100 mls/hr IV Q8H [facility] Last Admin: 07/20/16 11:41 Dose: 100 mls/hr Lactated Ringer's (Ringers, Lactated) 1,000 mls @ 999 mls/hr IV BOLUS ONE Stop: 07/20/16 17:19 Last Admin: 07/20/16 21:10 Dose: 999 mls/hr Lactated Ringer's (Ringers, Lactated) Confirm Administered Dose 1,000 mls @ as directed .ROUTE .STK-[facility] ONE Stop: 07/20/16 18:26 Lactated Ringer's (Ringers, Lactated) Confirm Administered Dose 1,000 mls @ as directed .ROUTE .[facility] ONE Stop: 07/20/16 18:27 Dextrose/Lactated Ringer's (Dextrose 5%-Lactated Ringers) 1,000 mls @ 100 mls/ hr IV ASDIRECTED [facility] Stop: 07/23/16 09:59 Last Admin: 07/23/16 00:19 Dose: 100 mls/hr Lactated Ringer's (Ringers, Lactated) 1,000 mls @ 100 mls/hr IV ASDIRECTED [facility] Stop: 07/21/16 17:59 Last Admin: 07/21/16 07:22 Dose: 100 mls/hr Aztreonam 1 gm/ Sodium (Chloride) 50 mls @ 100 mls/hr IV Q8HR [facility] Last Admin: 07/21/16 05:06 Dose: 100 mls/hr Meropenem 500 mg/ Sodium (Chloride) 50 mls @ 100 mls/hr IV Q8H [facility] Last Admin: 07/26/16 05:17 Dose: 100 mls/hr Acetaminophen 1,000 mg/ Premix 100 mls @ 400 mls/hr IV Q6H [facility] Stop: 07/21/16 16:14 Last Admin: 07/21/16 17:12 Dose: 400 mls/hr Aztreonam/Dextrose 1 gm/ (Premix) 50 mls @ 100 mls/hr IV Q8HR [facility] Last Admin: 07/25/16 05:52 Dose: 100 mls/hr Lactated Ringer's (Ringers, Lactated) 1,000 mls @ 40 mls/hr IV ASDIRECTED [facility] Lactated Ringer's (Ringers, Lactated) 1,000 mls @ 40 mls/hr IV ASDIRECTED [facility] Last Admin: 07/23/16 03:55 Dose: 40 mls/hr Albumin Human 12.5 gm/ Premix 50 mls @ 25 mls/hr IV Q24H [facility] Stop: 07/26/16 10:59 Last Admin: 07/26/16 09:09 Dose: 25 mls/hr Albumin Human 12.5 gm/ Premix 50 mls @ 25 mls/hr IV Q24H [facility] Stop: 07/26/16 12:59 Last Admin: 07/26/16 10:44 Dose: 25 mls/hr Albumin Human 12.5 gm/ Premix 50 mls @ 25 mls/hr IV Q24H [facility] Stop: 07/26/16 14:59 Last Admin: 07/26/16 12:45 Dose: 25 mls/hr Albumin Human 12.5 gm/ Premix 50 mls @ 25 mls/hr IV Q24H [facility] Stop: 07/26/16 16:59 Last Admin: 07/26/16 15:09 Dose: 25 mls/hr Multivitamins/Minerals 10 ml/Chromium/Copper/Manganese/Seleni/Zn 1 ml/ Amino Ac/ Electrol/Dextrose/Calcium 1,011 mls @ 82 mls/hr IV .BY DURATION [facility] Last Admin: 07/23/16 10:23 Dose: 82 mls/hr Amino Ac/Electrol/Dextrose/Calcium (Clinimix E 15) 1,000 mls @ 82 mls/hr IV .BY DURATION [facility] Last Admin: 07/23/16 22:44 Dose: 82 mls/hr Lactated Ringer's (Ringers, Lactated) 1,000 mls @ 0 mls/hr IV ASDIRECTED [facility] PRN Reason: KVO Last Admin: 07/24/16 19:59 Dose: 25 mls/hr Acetaminophen 1,000 mg/ Premix 100 mls @ 400 mls/hr IV Q6H PRN PRN Reason: Pain Stop: 07/24/16 23:18 Last Admin: 07/24/16 20:14 Dose: 400 mls/hr Potassium Chloride 40 meq/ (Premix) 100 mls @ 25 mls/hr IV ONETIME ONE Stop: 07/24/16 12:29 Last Admin: 07/24/16 08:56 Dose: 25 mls/hr Potassium Chloride 20 meq/ (Premix) 100 mls @ 50 mls/hr IV ONETIME ONE Stop: 07/24/16 14:59 Last Admin: 07/24/16 12:31 Dose: 50 mls/hr Multivitamins/Minerals 10 ml/Chromium/Copper/Manganese/Seleni/Zn 1 ml/ Amino Ac/ Electrol/Dextrose/Calcium 1,011 mls @ 82 mls/hr IV .BY DURATION [facility] Last Admin: 07/25/16 13:40 Dose: 82 mls/hr Amino Ac/Electrol/Dextrose/Calcium (Clinimix E 5/15) 1,000 mls @ 82 mls/hr IV .BY DURATION [facility] Last Admin: 07/26/16 00:18 Dose: 82 mls/hr Lactated Ringer's (Ringers, Lactated) 1,000 mls @ 25 mls/hr IV ASDIRECTED [facility] PRN Reason: KVO Acetaminophen 1,000 mg/ Premix 100 mls @ 400 mls/hr IV Q6H PRN PRN Reason: Pain Stop: 07/26/16 05:10 Last Admin: 07/26/16 03:58 Dose: 400 mls/hr Vancomycin HCl 1.75 gm/ Sodium (Chloride) 250 mls @ 167 mls/hr IV ONETIME ONE Stop: 07/25/16 12:29 Last Admin: 07/25/16 11:35 Dose: 167 mls/hr Vancomycin HCl 1.5 gm/ Sodium (Chloride) 250 mls @ 167 mls/hr IV Q12H [facility] Last Admin: 07/26/16 22:58 Dose: 167 mls/hr Fluconazole/Sodium Chloride (200 mg/ Premix) 100 mls @ 100 mls/hr IV Q24H [facility] Last Admin: 08/01/16 10:04 Dose: 100 mls/hr Ceftriaxone Sodium 2 gm/ (Sodium Chloride) 50 mls @ 100 mls/hr IV Q24H [facility] Last Admin: 07/30/16 13:05 Dose: 100 mls/hr Multivitamins/Minerals 10 ml/Chromium/Copper/Manganese/Seleni/Zn 1 ml/ Amino Ac/ Electrol/Dextrose/Calcium 1,011 mls @ 82 mls/hr IV .BY DURATION [facility] Stop: 07/30/16 14:56 Last Admin: 07/29/16 17:10 Dose: 82 mls/hr Amino Ac/Electrol/Dextrose/Calcium (Clinimix E 5/15) 1,000 mls @ 82 mls/hr IV .BY DURATION [facility] Stop: 07/30/16 14:56 Last Admin: 07/30/16 05:43 Dose: 82 mls/hr Acetaminophen 1,000 mg/ Premix 100 mls @ 400 mls/hr IV Q6H PRN PRN Reason: Pain Stop: 07/27/16 23:45 Last Admin: 07/27/16 15:33 Dose: 400 mls/hr Vancomycin HCl 1.7 gm/ Sodium (Chloride) 250 mls @ 167 mls/hr IV Q12H [facility] Last Admin: 07/29/16 23:37 Dose: 167 mls/hr Sodium Chloride (Normal Saline) 85 mls @ 3 mls/sec IV ASDIRECTED [facility] Last Admin: 07/30/16 03:03 Dose: 3 mls/sec Multivitamins/Minerals 10 ml/Chromium/Copper/Manganese/Seleni/Zn 1 ml/ Amino Ac/ Electrol/Dextrose/Calcium 1,011 mls @ 82 mls/hr IV .BY DURATION [facility] Stop: 08/01/16 16:00 Last Admin: 07/31/16 19:11 Dose: 82 mls/hr Amino Ac/Electrol/Dextrose/Calcium (Clinimix E 5/15) 1,000 mls @ 82 mls/hr IV .BY DURATION [facility] Stop: 08/01/16 16:00 Last Admin: 08/01/16 07:33 Dose: 82 mls/hr Vancomycin HCl 1.5 gm/ Sodium (Chloride) 250 mls @ 167 mls/hr IV Q12H [facility] Last Admin: 08/02/16 04:03 Dose: 167 mls/hr Metronidazole 500 mg/ Premix 100 mls @ 100 mls/hr IV Q8H [facility] Last Admin: 08/02/16 08:10 Dose: Not Given Ciprofloxacin/Dextrose 400 mg/ (Premix) 200 mls @ 200 mls/hr IV Q12H [facility] Last Admin: 08/03/16 13:54 Dose: 200 mls/hr Magnesium Sulfate 2 gm/ Premix 50 mls @ 25 mls/hr IV Q6HR [facility] Stop: 08/03/16 05:59 Last Admin: 08/03/16 04:05 Dose: 25 mls/hr Multivitamins/Minerals 10 ml/Chromium/Copper/Manganese/Seleni/Zn 1 ml/ Amino Ac/ Electrol/Dextrose/Calcium 1,011 mls @ 40 mls/hr IV .BY DURATION [facility] Amino Ac/Electrol/Dextrose/Calcium (Clinimix E 5/15) 1,000 mls @ 40 mls/hr IV .BY DURATION [facility] Dextrose/Lactated Ringer's (Dextrose 5%-Lactated Ringers) 1,000 mls @ 60 mls/ hr IV ASDIRECTED [facility] Last Admin: 08/03/16 16:04 Dose: 60 mls/hr Linezolid 600 mg/ Premix 300 mls @ 300 mls/hr IV Q12H [facility] Last Admin: 08/06/16 00:51 Dose: 300 mls/hr Aztreonam/Dextrose 1 gm/ (Premix) 50 mls @ 100 mls/hr IV Q8H [facility] Last Admin: 08/05/16 03:49 Dose: 100 mls/hr Lactated Ringer's (Ringers, Lactated) 1,000 mls @ 500 mls/hr IV ASDIRECTED [facility] Stop: 08/03/16 21:31 Last Admin: 08/03/16 20:08 Dose: 500 mls/hr Lactated Ringer's (Ringers, Lactated) 1,000 mls @ 125 mls/hr IV ASDIRECTED [facility] Last Admin: 08/04/16 08:39 Dose: 125 mls/hr Meropenem 1 gm/ Sodium (Chloride) 50 mls @ 100 mls/hr IV Q8H [facility] Last Admin: 08/05/16 02:24 Dose: 100 mls/hr Lactated Ringer's (Ringers, Lactated) 1,000 mls @ 50 mls/hr IV ASDIRECTED [facility] Last Admin: 08/05/16 02:24 Dose: 50 mls/hr Ceftriaxone Sodium 1 gm/ (Sodium Chloride) 50 mls @ 100 mls/hr IV Q24H [facility] Last Admin: 08/06/16 10:38 Dose: 100 mls/hr Ibuprofen (Motrin) 600 mg PO Q6H [facility] Last Admin: 08/03/16 14:30 Dose: 600 mg Iopamidol (Isovue-300 (61%)) 150 ml IV . DIRECTED [facility] Stop: 07/30/16 02:31 Last Admin: 07/30/16 03:03 Dose: 150 ml Ketorolac Tromethamine (Toradol) 60 mg IM ONETIME ONE Stop: 07/19/16 17:04 Last Admin: 07/19/16 17:30 Dose: 60 mg Labetalol HCl (Normodyne) 5 - 10 mg IV Q2H PRN PRN Reason: BP Last Admin: 07/25/16 05:19 Dose: 10 mg Labetalol HCl (Normodyne) Confirm Administered Dose 20 mg .ROUTE .STK-MED ONE Stop: 07/25/16 05:16 Last Admin: 07/25/16 08:49 Dose: Not Given Labetalol HCl (Normodyne) 0 mg IV Q2H PRN PRN Reason: BP Last Admin: 07/26/16 11:21 Dose: 10 mg Lidocaine HCl (Xylocaine 2% Jelly) 10 ml MUCMEM ONETIME ONE Stop: 07/16/16 21:15 Last Admin: 07/16/16 21:41 Dose: 10 ml Lidocaine/Epinephrine (Xylocaine 1% With Epinephrine 1:100,000) Confirm Administered Dose 50 ml .ROUTE .STK-MED ONE Stop: 07/22/16 06:41 Last Admin: 07/22/16 07:34 Dose: 20 ml Lorazepam (Ativan) 0.5 - 1 mg IVPUSH Q4H PRN PRN Reason: Anxiety Lorazepam (Ativan) 0.5 mg IVPUSH Q2H PRN PRN Reason: Anxiety Last Admin: 07/23/16 16:53 Dose: 0.5 mg Lorazepam (Ativan) 0.5 mg PO Q4H PRN PRN Reason: Anxiety Last Admin: 08/01/16 05:30 Dose: 0.5 mg Losartan Potassium (Cozaar) 50 mg PO DAILY RUMA Last Admin: 07/20/16 09:21 Dose: 50 mg Magnesium Citrate (Citrate Of Magnesia) 296 ml PO ONETIME ONE Stop: 07/18/16 09:01 Last Admin: 07/18/16 10:55 Dose: 296 ml Magnesium Hydroxide (Milk Of Magnesia) 30 ml PO ONETIME ONE Stop: 07/19/16 08:46 Last Admin: 07/19/16 10:27 Dose: 30 ml Magnesium Hydroxide (Milk Of Magnesia) 30 ml PO ONETIME ONE Stop: 07/26/16 09:01 Last Admin: 07/26/16 09:09 Dose: 30 ml Magnesium Hydroxide (Milk Of Magnesia) 30 ml PO Q4H PRN PRN Reason: Constipation Magnesium Hydroxide (Milk Of Magnesia) 30 ml PO ONETIME ONE Stop: 07/29/16 09:01 Last Admin: 07/29/16 11:00 Dose: 30 ml Meperidine HCl (Demerol) 100 mg IM ONETIME ONE Stop: 07/20/16 16:01 Last Admin: 07/20/16 16:05 Dose: 100 mg Meperidine HCl (Demerol) 100 mg IM ONETIME ONE Stop: 07/22/16 06:14 Last Admin: 07/22/16 06:28 Dose: 100 mg Meropenem (Merrem) Confirm Administered Dose 500 mg .ROUTE .STK-MED ONE Stop: 07/16/16 06:43 Last Admin: 07/16/16 09:25 Dose: 500 mg Meropenem (Merrem) Confirm Administered Dose 2,000 mg .ROUTE .STK-MED ONE Stop: 07/20/16 17:25 Last Admin: 07/20/16 17:25 Dose: 2,000 mg Meropenem (Merrem) Confirm Administered Dose 500 mg .ROUTE .STK-MED ONE Stop: 07/22/16 06:41 Last Admin: 07/22/16 07:34 Dose: 500 mg Midazolam HCl (Versed 1 Mg/Ml) Confirm Administered Dose 2 mg .ROUTE .STK-MED ONE Stop: 07/20/16 16:46 Midazolam HCl (Versed 1 Mg/Ml) Confirm Administered Dose 2 mg .ROUTE .STK-MED ONE Stop: 07/22/16 07:04 Morphine Sulfate (Morphine [employer] 150 Mg In 30 Ml) 150 mg IV ASDIRECTED RUMA PRN Reason: Protocol Last Admin: 07/22/16 06:49 Dose: 150 mg Morphine Sulfate (Morphine [employer] 150 Mg In 30 Ml) 0 mg IV ASDIRECTED PRN; Protocol PRN Reason: PAIN Last Admin: 07/26/16 03:12 Dose: 150 mg Naloxone HCl (Narcan) 0.1 mg IV ASDIRECTED PRN PRN Reason: decreased respiratory rate Naloxone HCl (Narcan) 0.1 mg IV ASDIRECTED PRN PRN Reason: decreased respiratory rate Naloxone HCl (Narcan) Confirm Administered Dose 0.4 mg .ROUTE .STK-MED ONE Stop: 07/20/16 20:01 Naloxone HCl (Narcan) 0.1 mg IV ASDIRECTED PRN PRN Reason: decreased respiratory rate Naloxone HCl (Narcan) 0.1 mg IV ASDIRECTED PRN PRN Reason: decreased respiratory rate Neostigmine Methylsulfate (Neostigmine) Confirm Administered Dose 5 mg .ROUTE .STK-MED ONE Stop: 07/16/16 07:27 Neostigmine Methylsulfate (Neostigmine) Confirm Administered Dose 5 mg .ROUTE .STK-MED ONE Stop: 07/20/16 16:44 Nitroglycerin (Nitrostat) 0.4 mg SL Q5M PRN PRN Reason: CHEST PAIN Fentanyl Patch Check 0 each TOP DAILY [facility] Last Admin: 07/20/16 09:27 Dose: 1 each Fentanyl Patch Check 0 each TOP DAILY@2200 [facility] Last Admin: 07/20/16 22:19 Dose: Not Given Verify Fentanyl (Patch) 0 each TOP BID [facility] Last Admin: 07/24/16 23:12 Dose: Not Given Non-Formulary Medication (Total Parenteral Nutrition, Central) 1,000 ml .XX .Continue Order [facility] Stop: 07/27/16 16:00 Non-Formulary Medication (Total Parenteral Nutrition, Central) 1,000 ml .XX .Continue Order [facility] Stop: 07/29/16 23:00 Non-Formulary Medication (Total Parenteral Nutrition, Central) 1,000 ml .XX .Continue Order [facility] Stop: 07/30/16 14:00 Non-Formulary Medication (Total Parenteral Nutrition, Central) 1,000 ml .XX .Continue Order [facility] Stop: 07/31/16 14:00 Non-Formulary Medication (Total Parenteral Nutrition, Central) 1,000 ml .XX .Continue Order [facility] Stop: 08/01/16 14:00 Non-Formulary Medication (Total Parenteral Nutrition, Central) 1,000 ml .XX .Continue Order [facility] Stop: 08/02/16 16:00 Nystatin (Mycostatin) 5 ml PO QID [facility] Last Admin: 08/06/16 07:13 Dose: Not Given Ondansetron HCl (Zofran) Confirm Administered Dose 4 mg .ROUTE .STK-MED ONE Stop: 07/16/16 07:27 Ondansetron HCl (Zofran) 4 mg IVPUSH Q4H PRN PRN Reason: NAUSEA Last Admin: 07/17/16 10:56 Dose: 4 mg Ondansetron HCl (Zofran) Confirm Administered Dose 4 mg .ROUTE .STK-MED ONE Stop: 07/20/16 16:44 Oxycodone HCl (Oxycodone) 5 - 10 mg PO Q4H PRN PRN Reason: Pain Last Admin: 07/28/16 12:27 Dose: 10 mg Oxycodone/Acetaminophen (Percocet 325-5 Mg) 1 - 2 tab PO Q4H PRN PRN Reason: PAIN Last Admin: 07/20/16 03:34 Dose: 2 tab Pantoprazole Sodium (Protonix Iv) 40 mg IV Q24H RUMA Last Admin: 07/25/16 20:56 Dose: 40 mg Polyethylene Glycol (Miralax) 119 gm PO ONETIME ONE Stop: 07/20/16 10:01 Last Admin: 07/20/16 09:35 Dose: 119 gm Propofol (Diprivan 20 Ml) Confirm Administered Dose 200 mg .ROUTE .STK-MED ONE Stop: 07/16/16 07:27 Propofol (Diprivan 20 Ml) Confirm Administered Dose 200 mg .ROUTE .STK-MED ONE Stop: 07/20/16 16:44 Propofol (Diprivan 20 Ml) Confirm Administered Dose 200 mg .ROUTE .STK-MED ONE Stop: 07/22/16 07:04 Rocuronium [place] (Zemuron) Confirm Administered Dose 50 mg .ROUTE .STK-MED ONE Stop: 07/16/16 07:27 Rocuronium [place] (Zemuron) Confirm Administered Dose 50 mg .ROUTE .STK-MED ONE Stop: 07/20/16 16:44 Rocuronium [place] (Zemuron) Confirm Administered Dose 50 mg .ROUTE .STK-MED ONE Stop: 07/20/16 18:24 Sodium Chloride (Saline Flush) 10 ml IV ASDIRECTED PRN PRN Reason: LINE FLUSH Sodium Chloride (Saline Flush) 10 ml FLUSH ONETIME ONE Stop: 07/30/16 02:22 Last Admin: 07/30/16 03:03 Dose: 10 ml Succinylcholine Chloride (Succinylcholine In Ns Pf) Confirm Administered Dose 200 mg .ROUTE .STK-MED ONE Stop: 07/16/16 07:27 Succinylcholine Chloride (Succinylcholine In Ns Pf) Confirm Administered Dose 200 mg .ROUTE .STK-MED ONE Stop: 07/20/16 16:44 Tamsulosin HCl (Flomax) 0.4 mg PO BEDTIME RUMA Last Admin: 07/19/16 21:18 Dose: 0.4 mg Tamsulosin HCl (Flomax) 0.4 mg PO ONETIME ONE Stop: 07/17/16 09:01 Last Admin: 07/17/16 10:18 Dose: 0.4 mg Tamsulosin HCl (Flomax) 0.4 mg PO ONETIME ONE Stop: 07/24/16 08:31 Last Admin: 07/24/16 09:06 Dose: 0.4 mg Tramadol HCl (Ultram) 50 - 100 mg PO Q4H PRN PRN Reason: Pain Last Admin: 08/03/16 11:22 Dose: 100 mg Vancomycin HCl (Vancomycin) 1 gm IV .PHARMACY TO DOSE RUMA Stop: 07/25/16 12:00 - Exam Quality Assessment: DVT prophylaxis General: alert, oriented, cooperative, no acute distress Lungs: Clear to auscultation, Normal respiratory effort Cardiovascular: Regular Rate, Regular Rhythm, No Murmurs Abdomen: bowel sounds present, soft, no tenderness, no distension Extremities: no edema - Problem List Review Problem List Initiated/Reviewed/Updated: Yes - My Orders Last 24 Hours: My Active Orders 08/06/16 12:15 Cefdinir [Omnicef] 300 mg PO BID - Plan Plan:: ASSESSMENT AND RECOMMENDATIONS Delirium and hallucinations-resolved -Monitor closely RECURRENT FEVER WITH DEVELOPING SEPSIS - status post delayed primary closure done 07/24. Over the past 24 hours has redeveloped temperature elevation, wounds were open this morning for drainage and he is been started on IV Zyvox. Previous cultures grew enterococcus and Escherichia coli, as well as yeast. He is done well over the past 24 hours, with no recurrent fevers. Escherichia coli growing from most recent wound cultures, sensitive to current antibiotics. We'll plan to convert to oral antibiotics today -Saline lock IV -Discontinue Zyvox and Rocephin -Omnicef 300 mg by mouth twice a day for one additional week Thrush - pain and exam both continue to improve with current cares -Continue oral nystatin and Magic mouthwash ACUTE KIDNEY INJURY - renal function has stabilized and improved with IV fluids -Continue to monitor urine output and renal function closely - Saline lock IV -Hold ibuprofen until renal function improves STATUS POST ABDOMINAL WALL HERNIA REPAIR - Appetite improving each day. -Continue current diet CORONARY ARTERY DISEASE-asymptomatic
[2016-08-06] MEDS: Acetaminophen 325 MG Tab PO PRN (12:57)
[2016-08-06] MEDS: Cefdinir 300 MG Cap PO SCH ×2 (12:59→21:18)
[2016-08-06] MEDS: Tamsulosin 0.4 MG Cap.ER PO SCH (21:18)
[2016-08-06] MEDS: Pantoprazole 40 MG Tab.CR PO SCH (21:19)
[2016-08-07] MEDS: Magnesium Sulfate/Water 2 GM in Premix Bag 1 BAG IV SCH ×4 (02:40→20:34)
[2016-08-07] MEDS: Albuterol/Ipratropium 3.0-0.5 MG/3 ML Neb Soln INH SCH ×4 (08:03→20:33)
[2016-08-07] MEDS: traMADol 50 MG Tab PO PRN ×2 (08:03→15:48)
[2016-08-07] MEDS: Loperamide 2 MG Cap PO SCH ×3 (08:06→15:48)
[2016-08-07] MEDS: Lactobacillus Rhamnosus GG (Probiotic) Cap PO SCH ×2 (08:08→20:34)
[2016-08-07] MEDS: Losartan 50 MG Tab PO SCH (08:08)
[2016-08-07] MEDS: Inulin 1.5 GM Chewable Tab PO SCH ×2 (08:09→20:34)
[2016-08-07] MEDS: Fluconazole 100 MG Tab PO SCH (08:09)
[2016-08-07] MEDS: Cefdinir 300 MG Cap PO SCH ×2 (08:10→20:35)
--- NOTE | 2016-08-07 15:54 | PCM.PN ---
- General Info Date of Service: 08/07/16 Functional Status: Reports: tolerating diet, ambulating, urinating - Review of Systems General: Reports: Weakness. Denies: Fever, Chills Pulmonary: Reports: no symptoms Cardiovascular: Reports: No Symptoms Gastrointestinal: Reports: Abdominal pain, Decreased appetite. Denies: Constipation, Diarrhea, Difficulty swallowing, Nausea, Vomiting Systems Review Comment:: This patient has been stable over the past 24 hours, vital signs have been good and he has remained afebrile. Continues to experience mild to moderate abdominal pain related to the open incision. - Patient Data Vitals - most recent: Last Vital Signs Temp 99 F 08/07/16 15:18 Pulse 84 08/07/16 15:18 Resp 18 08/07/16 15:18 BP 120/66 08/07/16 15:18 Pulse Ox 94 L 08/07/16 15:18 Weight - most recent: 228 lb 8 oz I&O - last 24 hours: Intake & Output 08/07/16 08/07/16 08/07/16 06:59 14:59 22:59 Intake Total 390 640 Output Total 950 900 450 Balance -560 -260 -450 Boyb Results last 24 hrs: Microbiology 08/02/16 21:45 Aerobic Blood Culture - Preliminary Blood - Arm, Right NO GROWTH AFTER 4 DAYS Anaerobic Blood Culture - Preliminary NO GROWTH AFTER 4 DAYS 08/02/16 21:35 Aerobic Blood Culture - Preliminary Blood - Arm, Right NO GROWTH AFTER 4 DAYS Anaerobic Blood Culture - Preliminary NO GROWTH AFTER 4 DAYS Med Orders - Current: Current Medications Acetaminophen (Tylenol) 650 mg PO Q4H PRN PRN Reason: Pain Last Admin: 08/06/16 12:57 Dose: 650 mg Albuterol/Ipratropium (Duoneb 3.0-0.5 Mg/3 Ml) 3 ml INH QIDRT [facility] Last Admin: 08/07/16 14:49 Dose: 3 ml Benzocaine/Menthol (Cepacol Sore Throat) 1 lozenge MUCMEM Q1H PRN PRN Reason: Pain Cefdinir (Omnicef) 300 mg PO BID [facility] Last Admin: 08/07/16 08:10 Dose: 300 mg Dimethicone/Zinc Oxide (Rash Relief-Zinc Oxide [place]) 0 gm TOP ASDIRECTED PRN PRN Reason: Rash Diphenhydramine HCl (Benadryl) 50 mg PO BEDTIME PRN PRN Reason: Sleep Last Admin: 08/06/16 02:16 Dose: 50 mg Diphenoxylate HCl/Atropine (Lomotil 0.025-2.5 Mg) 1 tab PO Q6H PRN PRN Reason: Diarrhea Last Admin: 08/05/16 04:15 Dose: 1 tab Fluconazole (Diflucan) 200 mg PO DAILY [facility] Last Admin: 08/07/16 08:09 Dose: 200 mg Heparin Sodium (Porcine) (Heparin Lock Flush 100 Units/Ml Syringe) 500 units FLUSH ASDIRECTED PRN PRN Reason: IV Use Last Admin: 08/05/16 10:24 Dose: 500 units Magnesium Sulfate 2 gm/ Premix 50 mls @ 25 mls/hr IV Q6H [facility] Stop: 08/08/16 03:59 Last Admin: 08/07/16 13:06 Dose: 25 mls/hr Inulin (Fiber Choice) 4.5 gm PO BID [facility] Last Admin: 08/07/16 08:09 Dose: 4.5 gm Lactobacillus Rhamnosus (Culturelle) 2 cap PO BID [facility] Last Admin: 08/07/16 08:08 Dose: 2 cap Loperamide HCl (Imodium) 2 mg PO TIDAC [facility] Last Admin: 08/07/16 15:48 Dose: 2 mg Lorazepam (Ativan) 1 mg PO Q4H PRN PRN Reason: Anxiety Last Admin: 08/03/16 05:37 Dose: 1 mg Losartan Potassium (Cozaar) 50 mg PO DAILY [facility] Last Admin: 08/07/16 08:08 Dose: 50 mg Nitroglycerin (Nitrostat) 0.4 mg SL Q5M PRN PRN Reason: CHEST PAIN Ondansetron HCl (Zofran) 4 mg IVPUSH Q4H PRN PRN Reason: NAUSEA Last Admin: 08/02/16 10:00 Dose: 4 mg Pantoprazole Sodium (Protonix) 40 mg PO BEDTIME [facility] Last Admin: 08/06/16 21:19 Dose: 40 mg Tamsulosin HCl (Flomax) 0.4 mg PO BEDTIME [facility] Last Admin: 08/06/16 21:18 Dose: 0.4 mg Tramadol HCl (Ultram) 50 mg PO Q4H PRN PRN Reason: Pain Last Admin: 08/07/16 15:48 Dose: 50 mg Discontinued Medications Acetaminophen (Tylenol) 650 mg PO Q4H PRN PRN Reason: Fever Last Admin: 07/26/16 19:54 Dose: 650 mg Acetaminophen (Tylenol) 650 mg PO Q4H PRN PRN Reason: Pain (mild 1-3) Last Admin: 07/29/16 00:39 Dose: 650 mg Acetaminophen (Tylenol) 650 mg PO Q4H PRN PRN Reason: Pain (mild 1-3) Acetaminophen (Tylenol) 650 mg GTUBE Q4H PRN PRN Reason: Pain (mild 1-3) Last Admin: 08/03/16 02:08 Dose: 650 mg Albuterol (Proventil Neb Soln) 2.5 mg NEB Q4H PRN PRN Reason: Dyspnea Last Admin: 07/20/16 16:13 Dose: 2.5 mg Albuterol/Ipratropium (Duoneb 3.0-0.5 Mg/3 Ml) 3 ml INH ASDIRECTED PRN PRN Reason: * Last Admin: 07/23/16 23:50 Dose: 3 ml Bacitracin (Bacitracin Oint) 0 gm TOP TID [facility] Last Admin: 07/20/16 13:58 Dose: 1 applic Bisacodyl (Dulcolax) 10 mg PO BID [facility] Last Admin: 07/20/16 09:22 Dose: 10 mg Bisacodyl (Dulcolax) 10 mg RECTAL BID PRN PRN Reason: Constipation Last Admin: 07/19/16 17:31 Dose: 10 mg Bisacodyl (Dulcolax) 20 mg PO ONETIME ONE Stop: 07/26/16 10:01 Last Admin: 07/26/16 09:09 Dose: 20 mg Bisacodyl (Dulcolax) 10 mg RECTAL BID [facility] Last Admin: 07/26/16 21:21 Dose: 10 mg Bisacodyl (Dulcolax) 10 mg RECTAL DAILY PRN PRN Reason: Constipation Bisacodyl (Dulcolax) 20 mg PO ONETIME ONE Stop: 07/29/16 10:01 Last Admin: 07/29/16 12:58 Dose: 20 mg Bupivacaine HCl (Marcaine 0.5%) Confirm Administered Dose 50 ml .ROUTE .STK-MED ONE Stop: 07/22/16 06:41 Last Admin: 07/22/16 07:34 Dose: 20 ml Bupivacaine HCl/Epinephrine Bitart (Marcaine 0.5%/Epinephrine 1:200,000) Confirm Administered Dose 50 ml .ROUTE .STK-MED ONE Stop: 07/16/16 06:43 Last Admin: 07/16/16 07:28 Dose: 10 ml Buspirone HCl (Buspar) 15 mg PO DAILY [facility] Last Admin: 07/20/16 09:21 Dose: 15 mg Buspirone HCl (Buspar) 7.5 mg PO QPM [facility] Last Admin: 07/20/16 17:57 Dose: Not Given Buspirone HCl (Buspar) 15 mg PO DAILY [facility] Last Admin: 07/29/16 10:59 Dose: 15 mg Buspirone HCl (Buspar) 7.5 mg PO BEDTIME [facility] Last Admin: 07/28/16 20:52 Dose: 7.5 mg Lidocaine HCl 30 ml/ Al Hydroxide/Mg Hydroxide 30 ml/Diphenhydramine HCl 75 mg 0 ml PO QID [facility] Last Admin: 08/03/16 16:06 Dose: 15 ml Dexamethasone (Dexamethasone) Confirm Administered Dose 4 mg .ROUTE .STK-MED ONE Stop: 07/16/16 07:27 Dexamethasone (Dexamethasone) Confirm Administered Dose 4 mg .ROUTE .STK-MED ONE Stop: 07/20/16 16:44 Diatrizoate Meglum/Diatrizoate Sod (Gastrografin 37%) 1,200 ml .XX . DIRECTED [facility] Stop: 07/20/16 14:16 Last Admin: 07/20/16 15:27 Dose: 1,200 ml Diphenhydramine HCl (Benadryl) 25 mg PO BEDTIME PRN PRN Reason: Sleep Last Admin: 07/29/16 00:39 Dose: 25 mg Diphenhydramine HCl (Benadryl) 25 mg PO BEDTIME PRN PRN Reason: SLEEP Diphenhydramine HCl (Benadryl) 25 mg GTUBE BEDTIME PRN PRN Reason: SLEEP Docusate Sodium (Colace) 100 mg PO BID [facility] Last Admin: 07/28/16 20:52 Dose: 100 mg Docusate Sodium (Colace 50 Mg/5 Ml Liquid) 100 mg GTUBE BID [facility] Last Admin: 07/31/16 21:13 Dose: 100 mg Fentanyl (Sublimaze) Confirm Administered Dose 500 mcg .ROUTE .STK-MED ONE Stop: 07/16/16 07:27 Fentanyl (Sublimaze) Confirm Administered Dose 250 mcg .ROUTE .STK-MED ONE Stop: 07/16/16 09:21 Fentanyl (Duragesic) 25 mcg TRDERM Q72H [facility] Last Admin: 07/20/16 09:24 Dose: 25 mcg Fentanyl (Sublimaze) Confirm Administered Dose 250 mcg .ROUTE .STK-MED ONE Stop: 07/20/16 16:45 Fentanyl (Sublimaze) Confirm Administered Dose 250 mcg .ROUTE .STK-MED ONE Stop: 07/20/16 18:24 Fentanyl (Duragesic) 25 mcg TRDERM Q72H [facility] Last Admin: 07/20/16 22:18 Dose: Not Given Fentanyl (Duragesic) 25 mcg TRDERM Q72H RUMA Fentanyl (Sublimaze) Confirm Administered Dose 100 mcg .ROUTE .STK-MED ONE Stop: 07/22/16 07:04 Fentanyl (Duragesic) 50 mcg TRDERM Q72H [facility] Last Admin: 07/22/16 09:40 Dose: 50 mcg Furosemide (Lasix) 20 mg IVPUSH Q8H [facility] Last Admin: 07/24/16 15:59 Dose: Not Given Glycopyrrolate () Confirm Administered Dose 1 mg .ROUTE .STK-MED ONE Stop: 07/16/16 07:27 Glycopyrrolate () Confirm Administered Dose 1 mg .ROUTE .STK-MED ONE Stop: 07/20/16 16:44 Haloperidol Lactate (Haldol) 2.5 mg IVPUSH ONETIME ONE Stop: 07/23/16 06:18 Last Admin: 07/23/16 06:26 Dose: 2.5 mg Haloperidol Lactate (Haldol) 2.5 mg IVPUSH Q1H PRN PRN Reason: PSYCHOSIS/ANXIETY Last Admin: 07/23/16 18:10 Dose: 2.5 mg Heparin Sodium (Porcine) (Heparin Lock Flush 100 Units/Ml Syringe) Confirm Administered Dose 500 units .ROUTE .STK-MED ONE Stop: 07/20/16 17:25 Last Admin: 07/20/16 17:28 Dose: 500 units Heparin Sodium (Porcine) (Heparin Sodium) Confirm Administered Dose 5,000 units .ROUTE .STK-MED ONE Stop: 07/20/16 20:54 Last Admin: 07/20/16 21:06 Dose: 5,000 units Hydromorphone HCl (Dilaudid Data Entry Processor 15 Mg In Ns 30 Ml) 0 mg IV ASDIRECTED PRN; Protocol PRN Reason: Pain Last Admin: 07/16/16 07:37 Dose: 0.3 mg Hydromorphone HCl (Dilaudid Data Entry Processor 15 Mg In Ns 30 Ml) 0 mg IV ASDIRECTED PRN; Protocol PRN Reason: PAIN Last Admin: 07/20/16 07:38 Dose: 15 mg Hydromorphone HCl (Dilaudid Data Entry Processor 15 Mg In Ns 30 Ml) 0 mg IV ASDIRECTED PRN; Protocol PRN Reason: PAIN Last Admin: 07/21/16 07:19 Dose: 15 mg Hydromorphone HCl (Dilaudid) 0.5 - 1 mg IVPUSH Q2H PRN PRN Reason: Pain (severe 7-10) Last Admin: 07/27/16 00:30 Dose: 1 mg Hydroxyzine HCl (Vistaril) 100 mg IM Q4H PRN PRN Reason: Pain Last Admin: 07/20/16 14:41 Dose: 100 mg Hydroxyzine HCl (Vistaril) 100 mg IM Q4H PRN PRN Reason: PAIN Last Admin: 07/26/16 12:16 Dose: 100 mg Hydroxyzine HCl (Vistaril) 50 mg IM ONETIME ONE Stop: 07/22/16 06:14 Last Admin: 07/22/16 06:29 Dose: 50 mg Clindamycin Phosphate 900 mg/ (Sodium Chloride) 106 mls @ 212 mls/hr IV ONETIME ONE Stop: 07/16/16 07:59 Last Admin: 07/16/16 07:48 Dose: 212 mls/hr Dextrose/Lactated Ringer's (Dextrose 5%-Lactated Ringers) 1,000 mls @ 100 mls/ hr IV ASDIRECTED RUMA Last Admin: 07/16/16 07:37 Dose: 100 mls/hr Lactated Ringer's (Ringers, Lactated) Confirm Administered Dose 1,000 mls @ as directed .ROUTE .STK-MED ONE Stop: 07/16/16 09:17 Dextrose/Lactated Ringer's (Dextrose 5%-Lactated Ringers) 1,000 mls @ 150 mls/ hr IV ASDIRECTED [facility] Last Admin: 07/18/16 04:26 Dose: 150 mls/hr Cefazolin Sodium 2 gm/ Sodium (Chloride) 50 mls @ 100 mls/hr IV Q8H [facility] Stop: 07/17/16 06:29 Last Admin: 07/17/16 05:08 Dose: 100 mls/hr Dextrose/Lactated Ringer's (Dextrose 5%-Lactated Ringers) 1,000 mls @ 100 mls/ hr IV ASDIRECTED [facility] Last Admin: 07/19/16 14:53 Dose: 100 mls/hr Acetaminophen 1,000 mg/ Premix 100 mls @ 400 mls/hr IV Q6H PRN PRN Reason: PAIN Stop: 07/20/16 10:30 Acetaminophen 1,000 mg/ Premix 100 mls @ 400 mls/hr IV NOW ONE Stop: 07/20/16 07:32 Last Admin: 07/20/16 07:31 Dose: 400 mls/hr Lactated Ringer's (Ringers, Lactated) 1,000 mls @ 1,000 mls/hr IV ASDIRECTED [facility] Stop: 07/20/16 09:31 Last Admin: 07/20/16 09:10 Dose: 1,000 mls/hr Levofloxacin/Dextrose 500 mg/ (Premix) 100 mls @ 100 mls/hr IV Q24H [facility] Last Admin: 07/20/16 09:22 Dose: 100 mls/hr Acetaminophen 1,000 mg/ Premix 100 mls @ 400 mls/hr IV Q6H [facility] Last Admin: 07/20/16 22:20 Dose: 400 mls/hr Lactated Ringer's (Ringers, Lactated) 1,000 mls @ 250 mls/hr IV ASDIRECTED [facility] Stop: 07/20/16 14:01 Last Admin: 07/20/16 11:04 Dose: 250 mls/hr Meropenem 1 gm/ Sodium (Chloride) 50 mls @ 100 mls/hr IV Q8H [facility] Last Admin: 07/20/16 11:41 Dose: 100 mls/hr Lactated Ringer's (Ringers, Lactated) 1,000 mls @ 999 mls/hr IV BOLUS ONE Stop: 07/20/16 17:19 Last Admin: 07/20/16 21:10 Dose: 999 mls/hr Lactated Ringer's (Ringers, Lactated) Confirm Administered Dose 1,000 mls @ as directed .ROUTE .STK-MED ONE Stop: 07/20/16 18:26 Lactated Ringer's (Ringers, Lactated) Confirm Administered Dose 1,000 mls @ as directed .ROUTE .STK-MED ONE Stop: 07/20/16 18:27 Dextrose/Lactated Ringer's (Dextrose 5%-Lactated Ringers) 1,000 mls @ 100 mls/ hr IV ASDIRECTED [facility] Stop: 07/23/16 09:59 Last Admin: 07/23/16 00:19 Dose: 100 mls/hr Lactated Ringer's (Ringers, Lactated) 1,000 mls @ 100 mls/hr IV ASDIRECTED [facility] Stop: 07/21/16 17:59 Last Admin: 07/21/16 07:22 Dose: 100 mls/hr Aztreonam 1 gm/ Sodium (Chloride) 50 mls @ 100 mls/hr IV Q8HR [facility] Last Admin: 07/21/16 05:06 Dose: 100 mls/hr Meropenem 500 mg/ Sodium (Chloride) 50 mls @ 100 mls/hr IV Q8H [facility] Last Admin: 07/26/16 05:17 Dose: 100 mls/hr Acetaminophen 1,000 mg/ Premix 100 mls @ 400 mls/hr IV Q6H [facility] Stop: 07/21/16 16:14 Last Admin: 07/21/16 17:12 Dose: 400 mls/hr Aztreonam/Dextrose 1 gm/ (Premix) 50 mls @ 100 mls/hr IV Q8HR [facility] Last Admin: 07/25/16 05:52 Dose: 100 mls/hr Lactated Ringer's (Ringers, Lactated) 1,000 mls @ 40 mls/hr IV ASDIRECTED [facility] Lactated Ringer's (Ringers, Lactated) 1,000 mls @ 40 mls/hr IV ASDIRECTED [facility] Last Admin: 07/23/16 03:55 Dose: 40 mls/hr Albumin Human 12.5 gm/ Premix 50 mls @ 25 mls/hr IV Q24H [facility] Stop: 07/26/16 10:59 Last Admin: 07/26/16 09:09 Dose: 25 mls/hr Albumin Human 12.5 gm/ Premix 50 mls @ 25 mls/hr IV Q24H [facility] Stop: 07/26/16 12:59 Last Admin: 07/26/16 10:44 Dose: 25 mls/hr Albumin Human 12.5 gm/ Premix 50 mls @ 25 mls/hr IV Q24H [facility] Stop: 07/26/16 14:59 Last Admin: 07/26/16 12:45 Dose: 25 mls/hr Albumin Human 12.5 gm/ Premix 50 mls @ 25 mls/hr IV Q24H [facility] Stop: 07/26/16 16:59 Last Admin: 07/26/16 15:09 Dose: 25 mls/hr Multivitamins/Minerals 10 ml/Chromium/Copper/Manganese/Seleni/Zn 1 ml/ Amino Ac/ Electrol/Dextrose/Calcium 1,011 mls @ 82 mls/hr IV .BY DURATION [facility] Last Admin: 07/23/16 10:23 Dose: 82 mls/hr Amino Ac/Electrol/Dextrose/Calcium (Clinimix E 15) 1,000 mls @ 82 mls/hr IV .BY DURATION [facility] Last Admin: 07/23/16 22:44 Dose: 82 mls/hr Lactated Ringer's (Ringers, Lactated) 1,000 mls @ 0 mls/hr IV ASDIRECTED [facility] PRN Reason: KVO Last Admin: 07/24/16 19:59 Dose: 25 mls/hr Acetaminophen 1,000 mg/ Premix 100 mls @ 400 mls/hr IV Q6H PRN PRN Reason: Pain Stop: 07/24/16 23:18 Last Admin: 07/24/16 20:14 Dose: 400 mls/hr Potassium Chloride 40 meq/ (Premix) 100 mls @ 25 mls/hr IV ONETIME ONE Stop: 07/24/16 12:29 Last Admin: 07/24/16 08:56 Dose: 25 mls/hr Potassium Chloride 20 meq/ (Premix) 100 mls @ 50 mls/hr IV ONETIME ONE Stop: 07/24/16 14:59 Last Admin: 07/24/16 12:31 Dose: 50 mls/hr Multivitamins/Minerals 10 ml/Chromium/Copper/Manganese/Seleni/Zn 1 ml/ Amino Ac/ Electrol/Dextrose/Calcium 1,011 mls @ 82 mls/hr IV .BY DURATION [facility] Last Admin: 07/25/16 13:40 Dose: 82 mls/hr Amino Ac/Electrol/Dextrose/Calcium (Clinimix E 5/15) 1,000 mls @ 82 mls/hr IV .BY DURATION [facility] Last Admin: 07/26/16 00:18 Dose: 82 mls/hr Lactated Ringer's (Ringers, Lactated) 1,000 mls @ 25 mls/hr IV ASDIRECTED [facility] PRN Reason: KVO Acetaminophen 1,000 mg/ Premix 100 mls @ 400 mls/hr IV Q6H PRN PRN Reason: Pain Stop: 07/26/16 05:10 Last Admin: 07/26/16 03:58 Dose: 400 mls/hr Vancomycin HCl 1.75 gm/ Sodium (Chloride) 250 mls @ 167 mls/hr IV ONETIME ONE Stop: 07/25/16 12:29 Last Admin: 07/25/16 11:35 Dose: 167 mls/hr Vancomycin HCl 1.5 gm/ Sodium (Chloride) 250 mls @ 167 mls/hr IV Q12H [facility] Last Admin: 07/26/16 22:58 Dose: 167 mls/hr Fluconazole/Sodium Chloride (200 mg/ Premix) 100 mls @ 100 mls/hr IV Q24H [facility] Last Admin: 08/01/16 10:04 Dose: 100 mls/hr Ceftriaxone Sodium 2 gm/ (Sodium Chloride) 50 mls @ 100 mls/hr IV Q24H [facility] Last Admin: 07/30/16 13:05 Dose: 100 mls/hr Multivitamins/Minerals 10 ml/Chromium/Copper/Manganese/Seleni/Zn 1 ml/ Amino Ac/ Electrol/Dextrose/Calcium 1,011 mls @ 82 mls/hr IV .BY DURATION [facility] Stop: 07/30/16 14:56 Last Admin: 07/29/16 17:10 Dose: 82 mls/hr Amino Ac/Electrol/Dextrose/Calcium (Clinimix E 5/15) 1,000 mls @ 82 mls/hr IV .BY DURATION [facility] Stop: 07/30/16 14:56 Last Admin: 07/30/16 05:43 Dose: 82 mls/hr Acetaminophen 1,000 mg/ Premix 100 mls @ 400 mls/hr IV Q6H PRN PRN Reason: Pain Stop: 07/27/16 23:45 Last Admin: 07/27/16 15:33 Dose: 400 mls/hr Vancomycin HCl 1.7 gm/ Sodium (Chloride) 250 mls @ 167 mls/hr IV Q12H [facility] Last Admin: 07/29/16 23:37 Dose: 167 mls/hr Sodium Chloride (Normal Saline) 85 mls @ 3 mls/sec IV ASDIRECTED [facility] Last Admin: 07/30/16 03:03 Dose: 3 mls/sec Multivitamins/Minerals 10 ml/Chromium/Copper/Manganese/Seleni/Zn 1 ml/ Amino Ac/ Electrol/Dextrose/Calcium 1,011 mls @ 82 mls/hr IV .BY DURATION [facility] Stop: 08/01/16 16:00 Last Admin: 07/31/16 19:11 Dose: 82 mls/hr Amino Ac/Electrol/Dextrose/Calcium (Clinimix E /15) 1,000 mls @ 82 mls/hr IV .BY DURATION [facility] Stop: 08/01/16 16:00 Last Admin: 08/01/16 07:33 Dose: 82 mls/hr Vancomycin HCl 1.5 gm/ Sodium (Chloride) 250 mls @ 167 mls/hr IV Q12H [facility] Last Admin: 08/02/16 04:03 Dose: 167 mls/hr Metronidazole 500 mg/ Premix 100 mls @ 100 mls/hr IV Q8H [facility] Last Admin: 08/02/16 08:10 Dose: Not Given Ciprofloxacin/Dextrose 400 mg/ (Premix) 200 mls @ 200 mls/hr IV Q12H [facility] Last Admin: 08/03/16 13:54 Dose: 200 mls/hr Magnesium Sulfate 2 gm/ Premix 50 mls @ 25 mls/hr IV Q6HR [facility] Stop: 08/03/16 05:59 Last Admin: 08/03/16 04:05 Dose: 25 mls/hr Multivitamins/Minerals 10 ml/Chromium/Copper/Manganese/Seleni/Zn 1 ml/ Amino Ac/ Electrol/Dextrose/Calcium 1,011 mls @ 40 mls/hr IV .BY DURATION [facility] Amino Ac/Electrol/Dextrose/Calcium (Clinimix E 15) 1,000 mls @ 40 mls/hr IV .BY DURATION [facility] Dextrose/Lactated Ringer's (Dextrose 5%-Lactated Ringers) 1,000 mls @ 60 mls/ hr IV ASDIRECTED [facility] Last Admin: 08/03/16 16:04 Dose: 60 mls/hr Linezolid 600 mg/ Premix 300 mls @ 300 mls/hr IV Q12H [facility] Last Admin: 08/06/16 13:42 Dose: Not Given Aztreonam/Dextrose 1 gm/ (Premix) 50 mls @ 100 mls/hr IV Q8H [facility] Last Admin: 08/05/16 03:49 Dose: 100 mls/hr Lactated Ringer's (Ringers, Lactated) 1,000 mls @ 500 mls/hr IV ASDIRECTED [facility] Stop: 08/03/16 21:31 Last Admin: 08/03/16 20:08 Dose: 500 mls/hr Lactated Ringer's (Ringers, Lactated) 1,000 mls @ 125 mls/hr IV ASDIRECTED [facility] Last Admin: 08/04/16 08:39 Dose: 125 mls/hr Meropenem 1 gm/ Sodium (Chloride) 50 mls @ 100 mls/hr IV Q8H [facility] Last Admin: 08/05/16 02:24 Dose: 100 mls/hr Lactated Ringer's (Ringers, Lactated) 1,000 mls @ 50 mls/hr IV ASDIRECTED [facility] Last Admin: 08/05/16 02:24 Dose: 50 mls/hr Ceftriaxone Sodium 1 gm/ (Sodium Chloride) 50 mls @ 100 mls/hr IV Q24H [facility] Last Admin: 08/06/16 10:38 Dose: 100 mls/hr Ibuprofen (Motrin) 600 mg PO Q6H [facility] Last Admin: 08/03/16 14:30 Dose: 600 mg Iopamidol (Isovue-300 (61%)) 150 ml IV . DIRECTED [facility] Stop: 07/30/16 02:31 Last Admin: 07/30/16 03:03 Dose: 150 ml Ketorolac Tromethamine (Toradol) 60 mg IM ONETIME ONE Stop: 07/19/16 17:04 Last Admin: 07/19/16 17:30 Dose: 60 mg Labetalol HCl (Normodyne) 5 - 10 mg IV Q2H PRN PRN Reason: BP Last Admin: 07/25/16 05:19 Dose: 10 mg Labetalol HCl (Normodyne) Confirm Administered Dose 20 mg .ROUTE .STK-MED ONE Stop: 07/25/16 05:16 Last Admin: 07/25/16 08:49 Dose: Not Given Labetalol HCl (Normodyne) 0 mg IV Q2H PRN PRN Reason: BP Last Admin: 07/26/16 11:21 Dose: 10 mg Lidocaine HCl (Xylocaine 2% Jelly) 10 ml MUCMEM ONETIME ONE Stop: 07/16/16 21:15 Last Admin: 07/16/16 21:41 Dose: 10 ml Lidocaine/Epinephrine (Xylocaine 1% With Epinephrine 1:100,000) Confirm Administered Dose 50 ml .ROUTE .STK-MED ONE Stop: 07/22/16 06:41 Last Admin: 07/22/16 07:34 Dose: 20 ml Lorazepam (Ativan) 0.5 - 1 mg IVPUSH Q4H PRN PRN Reason: Anxiety Lorazepam (Ativan) 0.5 mg IVPUSH Q2H PRN PRN Reason: Anxiety Last Admin: 07/23/16 16:53 Dose: 0.5 mg Lorazepam (Ativan) 0.5 mg PO Q4H PRN PRN Reason: Anxiety Last Admin: 08/01/16 05:30 Dose: 0.5 mg Losartan Potassium (Cozaar) 50 mg PO DAILY [facility] Last Admin: 07/20/16 09:21 Dose: 50 mg Magnesium Citrate (Citrate Of Magnesia) 296 ml PO ONETIME ONE Stop: 07/18/16 09:01 Last Admin: 07/18/16 10:55 Dose: 296 ml Magnesium Hydroxide (Milk Of Magnesia) 30 ml PO ONETIME ONE Stop: 07/19/16 08:46 Last Admin: 07/19/16 10:27 Dose: 30 ml Magnesium Hydroxide (Milk Of Magnesia) 30 ml PO ONETIME ONE Stop: 07/26/16 09:01 Last Admin: 07/26/16 09:09 Dose: 30 ml Magnesium Hydroxide (Milk Of Magnesia) 30 ml PO Q4H PRN PRN Reason: Constipation Magnesium Hydroxide (Milk Of Magnesia) 30 ml PO ONETIME ONE Stop: 07/29/16 09:01 Last Admin: 07/29/16 11:00 Dose: 30 ml Meperidine HCl (Demerol) 100 mg IM ONETIME ONE Stop: 07/20/16 16:01 Last Admin: 07/20/16 16:05 Dose: 100 mg Meperidine HCl (Demerol) 100 mg IM ONETIME ONE Stop: 07/22/16 06:14 Last Admin: 07/22/16 06:28 Dose: 100 mg Meropenem (Merrem) Confirm Administered Dose 500 mg .ROUTE .STK-MED ONE Stop: 07/16/16 06:43 Last Admin: 07/16/16 09:25 Dose: 500 mg Meropenem (Merrem) Confirm Administered Dose 2,000 mg .ROUTE .STK-MED ONE Stop: 07/20/16 17:25 Last Admin: 07/20/16 17:25 Dose: 2,000 mg Meropenem (Merrem) Confirm Administered Dose 500 mg .ROUTE .STK-MED ONE Stop: 07/22/16 06:41 Last Admin: 07/22/16 07:34 Dose: 500 mg Midazolam HCl (Versed 1 Mg/Ml) Confirm Administered Dose 2 mg .ROUTE .STK-MED ONE Stop: 07/20/16 16:46 Midazolam HCl (Versed 1 Mg/Ml) Confirm Administered Dose 2 mg .ROUTE .STK-MED ONE Stop: 07/22/16 07:04 Morphine Sulfate (Morphine Data Entry [employer]or 150 Mg In 30 Ml) 150 mg IV ASDIRECTED RUMA PRN Reason: Protocol Last Admin: 07/22/16 06:49 Dose: 150 mg Morphine Sulfate (Morphine Data Entry [employer]or 150 Mg In 30 Ml) 0 mg IV ASDIRECTED PRN; Protocol PRN Reason: PAIN Last Admin: 07/26/16 03:12 Dose: 150 mg Naloxone HCl (Narcan) 0.1 mg IV ASDIRECTED PRN PRN Reason: decreased respiratory rate Naloxone HCl (Narcan) 0.1 mg IV ASDIRECTED PRN PRN Reason: decreased respiratory rate Naloxone HCl (Narcan) Confirm Administered Dose 0.4 mg .ROUTE .STK-MED ONE Stop: 07/20/16 20:01 Naloxone HCl (Narcan) 0.1 mg IV ASDIRECTED PRN PRN Reason: decreased respiratory rate Naloxone HCl (Narcan) 0.1 mg IV ASDIRECTED PRN PRN Reason: decreased respiratory rate Neostigmine Methylsulfate (Neostigmine) Confirm Administered Dose 5 mg .ROUTE .STK-MED ONE Stop: 07/16/16 07:27 Neostigmine Methylsulfate (Neostigmine) Confirm Administered Dose 5 mg .ROUTE .STK-MED ONE Stop: 07/20/16 16:44 Nitroglycerin (Nitrostat) 0.4 mg SL Q5M PRN PRN Reason: CHEST PAIN Fentanyl Patch Check 0 each TOP DAILY [facility] Last Admin: 07/20/16 09:27 Dose: 1 each Fentanyl Patch Check 0 each TOP DAILY@2200 [facility] Last Admin: 07/20/16 22:19 Dose: Not Given Verify Fentanyl (Patch) 0 each TOP BID [facility] Last Admin: 07/24/16 23:12 Dose: Not Given Non-Formulary Medication (Total Parenteral Nutrition, Central) 1,000 ml .XX .Continue Order [facility] Stop: 07/27/16 16:00 Non-Formulary Medication (Total Parenteral Nutrition, Central) 1,000 ml .XX .Continue Order [facility] Stop: 07/29/16 23:00 Non-Formulary Medication (Total Parenteral Nutrition, Central) 1,000 ml .XX .Continue Order [facility] Stop: 07/30/16 14:00 Non-Formulary Medication (Total Parenteral Nutrition, Central) 1,000 ml .XX .Continue Order RUMA Stop: 07/31/16 14:00 Non-Formulary Medication (Total Parenteral Nutrition, Central) 1,000 ml .XX .Continue Order RUMA Stop: 08/01/16 14:00 Non-Formulary Medication (Total Parenteral Nutrition, Central) 1,000 ml .XX .Continue Order [facility] Stop: 08/02/16 16:00 Nystatin (Mycostatin) 5 ml PO QID [facility] Last Admin: 08/06/16 07:13 Dose: Not Given Ondansetron HCl (Zofran) Confirm Administered Dose 4 mg .ROUTE .STK-MED ONE Stop: 07/16/16 07:27 Ondansetron HCl (Zofran) 4 mg IVPUSH Q4H PRN PRN Reason: NAUSEA Last Admin: 07/17/16 10:56 Dose: 4 mg Ondansetron HCl (Zofran) Confirm Administered Dose 4 mg .ROUTE .STK-MED ONE Stop: 07/20/16 16:44 Oxycodone HCl (Oxycodone) 5 - 10 mg PO Q4H PRN PRN Reason: Pain Last Admin: 07/28/16 12:27 Dose: 10 mg Oxycodone/Acetaminophen (Percocet 325-5 Mg) 1 - 2 tab PO Q4H PRN PRN Reason: PAIN Last Admin: 07/20/16 03:34 Dose: 2 tab Pantoprazole Sodium (Protonix Iv) 40 mg IV Q24H RUMA Last Admin: 07/25/16 20:56 Dose: 40 mg Polyethylene Glycol (Miralax) 119 gm PO ONETIME ONE Stop: 07/20/16 10:01 Last Admin: 07/20/16 09:35 Dose: 119 gm Propofol (Diprivan 20 Ml) Confirm Administered Dose 200 mg .ROUTE .STK-MED ONE Stop: 07/16/16 07:27 Propofol (Diprivan 20 Ml) Confirm Administered Dose 200 mg .ROUTE .STK-MED ONE Stop: 07/20/16 16:44 Propofol (Diprivan 20 Ml) Confirm Administered Dose 200 mg .ROUTE .STK-MED ONE Stop: 07/22/16 07:04 Rocuronium [place] (Zemuron) Confirm Administered Dose 50 mg .ROUTE .STK-MED ONE Stop: 07/16/16 07:27 Rocuronium [place] (Zemuron) Confirm Administered Dose 50 mg .ROUTE .STK-MED ONE Stop: 07/20/16 16:44 Rocuronium [place] (Zemuron) Confirm Administered Dose 50 mg .ROUTE .STK-MED ONE Stop: 07/20/16 18:24 Sodium Chloride (Saline Flush) 10 ml IV ASDIRECTED PRN PRN Reason: LINE FLUSH Sodium Chloride (Saline Flush) 10 ml FLUSH ONETIME ONE Stop: 07/30/16 02:22 Last Admin: 07/30/16 03:03 Dose: 10 ml Succinylcholine Chloride (Succinylcholine In Ns Pf) Confirm Administered Dose 200 mg .ROUTE .STK-MED ONE Stop: 07/16/16 07:27 Succinylcholine Chloride (Succinylcholine In Ns Pf) Confirm Administered Dose 200 mg .ROUTE .STK-MED ONE Stop: 07/20/16 16:44 Tamsulosin HCl (Flomax) 0.4 mg PO BEDTIME RUMA Last Admin: 07/19/16 21:18 Dose: 0.4 mg Tamsulosin HCl (Flomax) 0.4 mg PO ONETIME ONE Stop: 07/17/16 09:01 Last Admin: 07/17/16 10:18 Dose: 0.4 mg Tamsulosin HCl (Flomax) 0.4 mg PO ONETIME ONE Stop: 07/24/16 08:31 Last Admin: 07/24/16 09:06 Dose: 0.4 mg Tramadol HCl (Ultram) 50 - 100 mg PO Q4H PRN PRN Reason: Pain Last Admin: 08/03/16 11:22 Dose: 100 mg Vancomycin HCl (Vancomycin) 1 gm IV .PHARMACY TO DOSE RUMA Stop: 07/25/16 12:00 - Exam Quality Assessment: DVT prophylaxis General: alert, oriented, cooperative, no acute distress Lungs: Clear to auscultation, Normal respiratory effort Cardiovascular: Regular Rate, Regular Rhythm, No Murmurs Abdomen: bowel sounds present, soft, no distension, tenderness. No: rigidity, rebound, guarding Extremities: no edema Skin: warm, dry, intact - Problem List Review Problem List Initiated/Reviewed/Updated: Yes - Plan Plan:: ASSESSMENT AND RECOMMENDATIONS Delirium and hallucinations-resolved -Monitor closely RECURRENT FEVER WITH DEVELOPING SEPSIS - secondary to wound infection. Stable and afebrile over the past 24 hours -Saline lock IV -Omnicef 300 mg by mouth twice a day for one additional week Thrush - resolved with current management -Continue oral nystatin and Magic mouthwash ACUTE KIDNEY INJURY - resolved following hydration -Continue to monitor urine output and renal function closely - Saline lock IV -Hold ibuprofen STATUS POST ABDOMINAL WALL HERNIA REPAIR - Appetite improving each day. -Continue current diet CORONARY ARTERY DISEASE-asymptomatic
[2016-08-07] MEDS: Tamsulosin 0.4 MG Cap.ER PO SCH (20:36)
[2016-08-07] MEDS: Pantoprazole 40 MG Tab.CR PO SCH (22:58)
[2016-08-08] MEDS: Magnesium Sulfate/Water 2 GM in Premix Bag 1 BAG IV SCH (02:21)
[2016-08-08] MEDS: Acetaminophen 325 MG Tab PO PRN (02:38)
[2016-08-08] MEDS: diphenhydrAMINE 25 MG Cap PO PRN (02:38)
[2016-08-08] MEDS: Albuterol/Ipratropium 3.0-0.5 MG/3 ML Neb Soln INH SCH (07:47)
[2016-08-08 08:11] VITALS: BP 98/42
[2016-08-08] MEDS: Losartan 50 MG Tab PO SCH (08:14)
[2016-08-08] MEDS: Loperamide 2 MG Cap PO SCH (08:14)
[2016-08-08] MEDS: Cefdinir 300 MG Cap PO SCH (08:16)
[2016-08-08] MEDS: Inulin 1.5 GM Chewable Tab PO SCH (08:16)
[2016-08-08] MEDS: Lactobacillus Rhamnosus GG (Probiotic) Cap PO SCH (08:16)
[2016-08-08] MEDS: Fluconazole 100 MG Tab PO SCH (08:16)
--- NOTE | 2016-08-09 13:47 | PN ---
DATE OF SERVICE: 08/05/2016 The patient had a T-max of 100.6. Vital signs are otherwise stable. He slept fairly well last night. Overall, he appears to be doing somewhat better. He is starting to produce loose bowel movements and we will add to the Lomotil some Imodium today. The C. difficile toxin assay yesterday was negative on the stool. The wound cultures grew out an E. coli sensitive to meropenem the patient is presently on. Dr. Brody will be reviewing the antibiotic management. We will have Physical Therapy begin seeing the patient to facilitate rehab and otherwise his open wound is clean and healing satisfactorily at this point. His magnesium is low, and that will be supplemented otherwise. Creatinine is down somewhat. White count is down to 7000 and overall appears to be improving significantly over the last 48 hours. Sg Youngblood MD /[id number]
--- NOTE | 2016-08-09 13:47 | PN ---
DATE OF SERVICE: 08/07/2016 The patient has been afebrile, stable vital signs. Overall doing quite a bit better. Bowel movements are being slowed down and we will give him a high-fiber diet at this point, which will be helpful and otherwise, continue the present regimen to slow the bowel activity. He looks quite great at this point, his is learning how to do the dressing changes. He may be ready for discharge home tomorrow. Sg Youngblood MD /[id number]
--- NOTE | 2016-08-17 08:41 | DISCH ---
FINAL DIAGNOSES: 1. Recurrent incarcerated umbilical hernia associated with marked intraabdominal adhesions. 2. Postoperative urinary retention. 3. Postoperative mass of colonic distention (megacolon) resulting in gastrointestinal perforation and diffuse peritonitis. ADDITIONAL DIAGNOSES: Include: 1. History of coronary artery disease, status post percutaneous angioplasty. 2. History of hypertension. 3. History of anxiety and depression. 4. History of hyperlipidemia. OPERATIVE PROCEDURE: On 07/17/2016, diagnostic laparoscopy with lysis of extensive adhesions, repair of recurrent umbilical hernia with mesh (removal of previous mesh), and placement of Vicryl mesh to limit recurrent adhesion formation; secondary operative procedure on 07/20/2016, this would be exploratory laparotomy with: A. Total abdominal colectomy with ileorectal anastomosis. B. Distal small-bowel resection. C. Irrigation of diffuse peritonitis. D. Removal of intraperitoneal mesh. E. Placement of tube gastrostomy. Then on 07/22/2016, delayed primary closure of open abdominal incision. HOSPITAL COURSE: This is a 65-year-old male presenting with a painful recurrent umbilical hernia. This had been repaired twice previously and appears to have some incarcerated component within it. Plan is to proceed with a laparoscopy and laparotomy if necessary and repair of the hernia most likely with removal of the previously placed mesh. This was done on the day of admission. There were quite extensive adhesions present, and after completion of the new mesh repair and removal of the previous mesh, Vicryl mesh was also placed to limit recurrent adhesion formation. Initially, the patient did well postoperatively, other than the retained urine in the postoperative period. As one approached postop day #3, the patient had quite striking colonic distention. The abdominal x-rays in the morning showed diffuse colonic distention but without any signs of perforation, i.e. no free air. A water contrast enema was then given with the hope of getting his bowels moving. Right around the time the enema was given, the patient developed severe diffuse abdominal pain. A CT scan showed a large amount of free air, indicating perforation had undertaken. The patient was rapidly taken to the operating room after antibiotics were initiated, and the site of perforation was noted to be within the small bowel just proximal to the ileocecal valve where there were some adhesions down into the pelvis. The patient presumably had an incompetent ileocecal valve and the back pressure on the small bowel resulted from the colonic distention as well, and that area was probably somewhat intrinsically weakened or abnormally scarred due to being involved with the adhesions in the pelvis. The decision was then made to proceed with a total abdominal colectomy with ileorectal anastomosis. The small bowel that was involved in the perforation was also resected, and a gastrostomy tube was placed both to allow decompression of the GI tract in an otherwise uncomplicated manner and also possibly provide nutritional support, should that become necessary. The mesh that had been used earlier in this hospitalization was also removed, and the skin and subcutaneous tissue were packed open to avoid subcutaneous wound infection and planned delayed primary closure then accomplished on 07/22/2016. Postoperatively, the patient had a somewhat slow recovery of his GI tract, but eventually this all did resolve, and he, by the time of discharge now, is eating fairly well. We did need to open up this subcutaneous wound, and that now is clean and healing satisfactorily with an intact underlying fascia. The patient will be discharged on Omnicef 300 mg p.o. b.i.d. x7 days. To control his bowels, we have given him prescription of Lomotil, Fiber Choice, probiotic capsules, and Imodium, and also for the urinary retention issues, was given Flomax 0.4 mg at bedtime, and then Tylenol as always needing at this time for pain. Otherwise, continue his previous home medications. Follow up with Dr. Youngblood in [facility] on 08/11/2016. The central line that was placed at the time of the second procedure was also removed.
== END 2016-08-08 10:56 | disposition home or self-care (01) | DRG 326 ==
LOC: JP.SDS 06:28 → JP.2SS 10:45 → JP.SDS 07-17 08:00 → JP.ICU 07-20 08:26 → JP.2SS 07-26 14:31 → JP.MS 08-01 14:29 → JP.ICU 08-03 18:11 → JP.2SS 08-05 14:00
PROVIDERS: ADMIT Surgery; ATTEND Surgery
PROC: 3E0M05Z Introduction of Adhesion Barrier into Peritoneal Cavity, Open Approach (ICD-10-PCS; principal; 2016-07-16)
PROC: 0WPF4JZ Removal of Synthetic Substitute from Abdominal Wall, Percutaneous Endoscopic Approach (ICD-10-PCS; principal; 2016-07-16)
PROC: 0DN84ZZ Release Small Intestine, Percutaneous Endoscopic Approach (ICD-10-PCS; principal; 2016-07-16)
PROC: 0DNT4ZZ (ICD-10-PCS; principal; 2016-07-16)
PROC: 0WUF4JZ Supplement Abdominal Wall with Synthetic Substitute, Percutaneous Endoscopic Approach (ICD-10-PCS; principal; 2016-07-16)
PROC: 0DH60UZ Insertion of Feeding Device into Stomach, Open Approach (ICD-10-PCS; 2016-07-20)
PROC: 0WPF0JZ Removal of Synthetic Substitute from Abdominal Wall, Open Approach (ICD-10-PCS; 2016-07-20)
PROC: 0DTE0ZZ Resection of Large Intestine, Open Approach (ICD-10-PCS; 2016-07-20)
PROC: 0DB80ZZ Excision of Small Intestine, Open Approach (ICD-10-PCS; 2016-07-20)
PROC: 02HV33Z Insertion of Infusion Device into Superior Vena Cava, Percutaneous Approach (ICD-10-PCS; 2016-07-20)
PROC: 0WQF0ZZ Repair Abdominal Wall, Open Approach (ICD-10-PCS; 2016-07-22)
DX: K42.0 Umbilical hernia with obstruction, without gangrene (principal); K63.1 Perforation of intestine (nontraumatic); A41.9 Sepsis, unspecified organism; T81.4XXA Infection following a procedure, initial encounter; N17.9 Acute kidney failure, unspecified; B37.0 Candidal stomatitis; L03.311 Cellulitis of abdominal wall; K66.0 Peritoneal adhesions (postprocedural) (postinfection); R33.9 Retention of urine, unspecified; F41.9 Anxiety disorder, unspecified; K63.89 Other specified diseases of intestine; I10 Essential (primary) hypertension; Z48.1 Encounter for planned postprocedural wound closure; B96.20 Unspecified Escherichia coli [E. coli] as the cause of diseases classified elsewhere; B95.2 Enterococcus as the cause of diseases classified elsewhere; Z16.11 Resistance to penicillins; Z16.39 Resistance to other specified antimicrobial drug; R44.1 Visual hallucinations; R41.0 Disorientation, unspecified; E88.09 Other disorders of plasma-protein metabolism, not elsewhere classified; Z95.5 Presence of coronary angioplasty implant and graft; I25.10 Atherosclerotic heart disease of native coronary artery without angina pectoris; H54.7 Unspecified visual loss; E66.01 Morbid (severe) obesity due to excess calories; F32.9 Major depressive disorder, single episode, unspecified; K21.9 Gastro-esophageal reflux disease without esophagitis; Z88.0 Allergy status to penicillin; R13.10 Dysphagia, unspecified
CPT/HCPCS: 36415; 36600; 51798; 70450; 71010; 71010-26; 71020; 71020-26; 71250; 74000; 74000-26; 74020; 74020-26; 74022; 74022-26; 74176; 74177; 80048; 80053; 80202; 81001; 82803; 83605; 83735; 83880; 84100; 84484; 85025; 85027; 86140; 87040; 87070; 87075; 87077; 87081; 87186; 87205; 87430; 87493; 88300; 88307; 93005; 93010; 94640; 94640-76; 94762; 97110-GP; 97116-GP; 97162-GP; 97530-GP; 99231; 99232; 99233; A9270-GY; C1781; C9113; J0131; J0690; J0696; J0744; J1100; J1170; J1450; J1630; J1642; J1644; J1885; J1940; J1956; J2020; J2060; J2175; J2185; J2250; J2270; J2310; J2405; J2704; J3010; J3370; J3410; J3475; J3480; J3490; J7030; J7042; J7050; J7120; J7620; P9047; Q9963; S0073; S0077

== ENCOUNTER 2020-08-26 20:49 | Emergency (ER) | payer SELFPAY ==
--- NOTE | 2020-08-26 22:43 | EDM.PDOC ---
ED HPI GENERAL MEDICAL PROBLEM - General Chief Complaint: Abdominal Pain Stated Complaint: HAVING STOMACH PAIN Time Seen by Provider: 08/26/20 22:42 Source of Information: Reports: Patient History Limitations: Reports: No Limitations - History of Present Illness INITIAL COMMENTS - FREE TEXT/NARRATIVE: Patient presents emergency room secondary to abdominal pain increasing in nature bloating and gas that has been occurring unable to eat or drink secondary to vomiting the last couple of days patient gives a significant history of multiple abdominal hernia repairs most recently he had one [facility] [place] [facility] an umbilical hernia he has a follow-up with his surgeon on 19 August was reported that all was going well there was some concern about some drainage at the incision site so he was started on Levaquin he completed the majority of that course he stopped with 2 doses remaining was not feeling well and unable to eat and drink patient states that he does have a short gut having had majority of his colon removed secondary to adhesions and colon rupture after having a previous hernia repair states that he has vomited twice since Tuesday he has had a lot of gagging episodes ports that the worst abdominal pain is an 8 out of 10 currently it is about a 3 out of 10 minutes constant in nature treating his pain with Tylenol and ibuprofen unreported temperature max was 99 7 yesterday he denies any fevers or chills he states that he did have a bowel movement today which did relieve some of his abdominal pain and bloating sensation otherwise he does not pass gas/flatus. PMH--depression, anxiety, HTN, CAD-stents, HLP, GERD Meds--Losartan, apple cider vinegar, vit D, B-complex, omega-3 FA, tumeric Allergy--PCN Tob/EtOH/Drug--denies Abdomen Pain Score (Numeric/FACES): 8 - Related Data Allergies Allergy/AdvReac Type Severity Reaction Status Date / Time Penicillins Allergy Hives Verified 08/26/20 21:51 Home Meds: Home Meds Losartan Potassium [Cozaar] 50 mg PO DAILY 07/13/16 [History] Cider Vinegar [Apple Cider Vinegar] 1,000 mg PO BID 07/16/16 [History] Ergocalciferol (Vitamin D2) [Vitamin D] 400 unit PO DAILY 07/16/16 [History] Woodruff-3S/DHA/Epa/Fish Oil [[place]ruff-3 Fish Oil 1,000 mg Sfgl] 1 tab PO DAILY 07/16/16 [History] Prasterone (DHEA)/Calcium Carb [DHEA] 1 tab PO DAILY 07/16/16 [History] Turmeric Root Extract [Turmeric] 500 mg PO DAILY 07/16/16 [History] Vitamin B Complex 1 tab PO DAILY 07/16/16 [History] Past Medical History HEENT History: Reports: Impaired Vision, Other (See Below) Other HEENT History: dry eyes, wears glasses Cardiovascular History: Reports: CAD, High Cholesterol, Hypertension, Stents Gastrointestinal History: Reports: GERD Musculoskeletal History: Reports: Fracture Other Musculoskeletal History: R shoulder pain Psychiatric History: Reports: Anxiety, Depression Endocrine/Metabolic History: Reports: Obesity/BMI 30+ - Infectious Disease History Infectious Disease History: Reports: Chicken Pox, Measles, Mumps, Shingles - Past Surgical History HEENT Surgical History: Reports: Other (See Below) Other HEENT Surgeries/Procedures: root canal Cardiovascular Surgical History: Reports: Coronary Artery Stent, Other (See Below) Other Cardiovascular Surgeries/Procedures: October stents GI Surgical History: Reports: Colon, Colonoscopy, Hernia Repair/Other Endocrine Surgical History: Reports: None Social & Family History - Family History Family Medical History: No Pertinent Family History - Tobacco Use Tobacco Use Status *Q: Never Tobacco User - Caffeine Use Caffeine Use: Reports: Coffee Caffeine Use Comment: 1 cup a day - Recreational Drug Use Recreational Drug Use: No ED ROS GENERAL - Review of Systems Review Of Systems: See Below Constitutional: Reports: Decreased Appetite. Denies: Fever, Chills HEENT: Reports: No Symptoms Respiratory: Reports: No Symptoms Cardiovascular: Reports: No Symptoms Endocrine: Reports: No Symptoms GI/Abdominal: Reports: Abdominal Pain, Decreased Appetite, Distension, Nausea, Vomiting : Reports: No Symptoms Musculoskeletal: Reports: No Symptoms Skin: Reports: No Symptoms Neurological: Reports: No Symptoms Psychiatric: Reports: No Symptoms Hematologic/Lymphatic: Reports: No Symptoms Immunologic: Reports: No Symptoms ED EXAM, GI/ABD - Physical Exam Exam: See Below Exam Limited By: No Limitations General Appearance: Alert, WD/WN, Mild Distress Eyes: Bilateral: Normal Appearance, EOMI Ears: Normal External Exam Nose: Normal Inspection Throat/Mouth: Normal Inspection, Normal Lips, Normal Oropharynx, Normal Voice, No Airway Compromise Head: Atraumatic, Normocephalic Neck: Normal Inspection, Supple, Non-Tender, Full Range of Motion Respiratory/Chest: No Respiratory Distress, Lungs Clear, Normal Breath Sounds, Chest Non-Tender Cardiovascular: Normal Peripheral Pulses, Regular Rate, Rhythm, No Edema, No Murmur GI/Abdominal Exam: Normal Bowel Sounds, Soft, Tender (diffuse tenderness), Other (noted for healing ventral incision line, some scabbing noted but no evidence of dehisence/drainage/discharge). No: Guarding, Rigid, Rebound (Male) Exam: Deferred Rectal (Males) Exam: Deferred Back Exam: Normal Inspection Extremities: Normal Inspection, Normal Range of Motion, No Pedal Edema, Normal Capillary Refill Neurological: Alert, Oriented, Normal Cognition, No Motor/Sensory Deficits Psychiatric: Normal Affect, Normal Mood Skin Exam: Warm, Dry, Intact, Jaundice (no sclera icterus) Course - Vital Signs Text/Narrative:: 0015--notified by SURVEY SUPERVISOR that patient unsure he can drink oral contrast, has attempted a couple of swallows and states having belching. encouraged to drink if able otherwise will obtain by IV contrast only. have attempted to pre- medicate with zofran & pepcid to help allevate symptoms 0105--in room to d/w patient and spouse ER lab findings; at this time he has not had CT abd/pelvis as ordered (refusing to drink oral contrast due to belching/nausea but refused nausea medication). noted for significant elevation of t.bili-6.3, AST/ALT-235/420, ALP-234--otherwise labs fairly unremarkable. d /w them transfer to higher level of care--[place]. They request [facility]. patient continues to decline pain medication. he is up in room pacing without difficulty 0120--call placed to [facility] transfer line. Case d/w Dr Harman, ER. He accepts for transfer at this time to ER/direct admission. He request that CT abd/pelvis be completed prior to transfer 0210--patient has opted to go by ambulance, was instructed on [facility] visiting hours. Will send CD from [place] with son who is planning to go to [place] in the morning when visiting hours start Last Recorded V/S: Last Vital Signs Temp 97.3 F 08/26/20 21:48 Pulse 51 L 08/27/20 02:12 Resp 20 08/27/20 02:12 BP 162/77 H 08/27/20 02:12 Pulse Ox 99 08/27/20 02:12 - Orders/Labs/Meds Orders: Active Orders 24 hr Category Date Time Status Peripheral IV Care [RC] . DIRECTED Care 08/26/20 23:21 Active Nothing per Oral Now Diet [DIET] Diet 08/26/20 Dinner Active Abdomen Pelvis w Cont [CT] Stat Exams 08/27/20 00:01 Taken COVID-19/FLU A+B/RSV [MOLEC] Stat Lab 08/27/20 01:58 Ordered URINALYSIS W/MICROSCOPIC [UA W/MICROSCOPIC] [URIN] Stat Lab 08/27/20 02:12 Ordered Ondansetron [Zofran] Med 08/26/20 23:19 Active 4 mg IVPUSH Q6H PRN Sodium Chloride 0.9% [Normal Saline] 1,000 ml Med 08/26/20 23:30 Active IV ASDIRECTED Sodium Chloride 0.9% [Saline Flush] Med 08/26/20 23:19 Active 10 ml FLUSH ASDIRECTED PRN Isolation [COMM] Stat Oth 08/27/20 01:59 Ordered Peripheral IV Insertion Adult [OM.PC] Urgent Oth 08/26/20 23:19 Ordered Medication Orders Sodium Chloride (Normal Saline) 1,000 mls @ 999 mls/hr IV ASDIRECTED RUMA Last Admin: 08/27/20 00:13 Dose: 999 mls/hr Documented by: DENEEN Ondansetron HCl (Ondansetron 4 Mg/2 Ml Sdv) 4 mg IVPUSH Q6H PRN PRN Reason: Nausea/Vomiting Sodium Chloride (Sodium Chloride 0.9% 10 Ml Syringe) 10 ml FLUSH ASDIRECTED PRN PRN Reason: Keep Vein Open Last Admin: 08/27/20 00:13 Dose: 10 ml Documented by: DENEEN Labs: Laboratory Tests 08/26/20 08/26/20 Range/Units 23:40 23:40 WBC 10.5 (4.5-11.0) K/uL RBC 5.11 (4.30-5.90) M/uL Hgb 15.0 D (12.0-15.0) g/dL Hct 44.1 (40.0-54.0) % MCV 86 (80-98) fL MCH 29 (27-31) pg MCHC 34 (32-36) % Plt Count 279 (150-400) K/uL Neut % (Auto) 77 H (36-66) % Lymph % (Auto) 14 L (24-44) % Bennett % (Auto) 7 H (2-6) % Eos % (Auto) 2 (2-4) % Baso % (Auto) 0 (0-1) % Sodium 140 (140-148) mmol/L Potassium 4.3 (3.6-5.2) mmol/L Chloride 101 (100-108) mmol/L Carbon Dioxide 25 (21-32) mmol/L Anion Gap 14.0 (5.0-14.0) mmol/L BUN 18 (7-18) mg/dL Creatinine 1.1 (0.8-1.3) mg/dL Est Cr Clr Drug Dosing 66.36 mL/min Estimated GFR (MDRD) > 60 (>60) Glucose 99 (74-106) mg/dL Calcium 9.2 D (8.5-10.1) mg/dL Total Bilirubin 6.3 H D (0.2-1.0) mg/dL AST 235 H D (15-37) U/L ALT 420 H (12-78) U/L Alkaline Phosphatase 243 H D (46-116) U/L Total Protein 7.3 (6.4-8.2) g/dL Albumin 2.8 L (3.4-5.0) g/dL Globulin 4.5 H (2.3-3.5) g/dL Albumin/Globulin Ratio 0.6 L (1.2-2.2) Amylase 42 (25-115) U/L Lipase 183 (73-393) U/L Meds: Medications Generic Name Dose Route Start Last Admin Trade Name Freq PRN Reason Stop Dose Admin Sodium Chloride 1,000 mls @ 999 mls/hr 08/26/20 23:30 08/27/20 00:13 Normal Saline IV 999 mls/hr ASDIRECTED RUMA Administration Ondansetron HCl 4 mg 08/26/20 23:19 Ondansetron 4 Mg/2 Ml Sdv IVPUSH Q6H PRN Nausea/Vomiting Sodium Chloride 10 ml 08/26/20 23:19 08/27/20 00:13 Sodium Chloride 0.9% 10 Ml Syringe FLUSH 10 ml ASDIRECTED PRN Administration Keep Vein Open Discontinued Medications Generic Name Dose Route Start Last Admin Trade Name Darrellq PRN Reason Stop Dose Admin Famotidine 20 mg 08/26/20 23:21 08/27/20 00:17 Famotidine 20 Mg/2 Ml Sdv IVPUSH 08/26/20 23:22 20 mg ONETIME ONE Administration Sodium Chloride 85 mls @ 4 mls/sec 08/27/20 01:23 08/27/20 01:37 Normal Saline IV 08/27/20 01:24 4 mls/sec ASDIRECTED STA Administration Iopamidol 30 ml 08/26/20 23:54 08/27/20 00:13 Iopamidol 612 Mg/Ml 50 Ml Sdv PO 08/26/20 23:55 30 ml ASDIRECTED ONE Administration Iopamidol 150 ml 08/27/20 01:23 08/27/20 01:36 Iopamidol 612 Mg/Ml 150 Ml Bottle IV 08/27/20 01:24 150 ml . DIRECTED STA Administration Departure - Departure Time of Disposition: 01:30 Disposition: DC/Tfer to Acute Hospital 02 Clinical Impression: Postoperative generalized abdominal pain, Hyperbilirubinemia, Elevated LFTs, Hypertension - Discharge Information *PRESCRIPTION DRUG MONITORING PROGRAM REVIEWED*: Not Applicable *COPY OF PRESCRIPTION DRUG MONITORING REPORT IN PATIENT PRAVEEN: Not Applicable Referrals: PCP,None [Primary Care Provider] - Forms: ED Department Discharge Sepsis Event Note (ED) - Evaluation Sepsis Screening Result: No Definite Risk - Focused Exam Vital Signs: Vital Signs Temp Pulse Resp BP Pulse Ox 08/27/20 02:12 51 L 20 162/77 H 99 08/27/20 01:10 47 L 16 187/87 H 96 08/26/20 21:48 97.3 F 61 20 166/82 H 96 - My Orders Last 24 Hours: My Active Orders 08/26/20 Dinner Nothing per Oral Now Diet [DIET] 08/26/20 23:19 Ondansetron [Zofran] 4 mg IVPUSH Q6H PRN Sodium Chloride 0.9% [Saline Flush] 10 ml FLUSH ASDIRECTED PRN Peripheral IV Insertion Adult [OM.PC] Urgent 08/26/20 23:21 Peripheral IV Care [RC] . DIRECTED 08/26/20 23:30 Sodium Chloride 0.9% [Normal Saline] 1,000 ml IV ASDIRECTED 08/27/20 00:01 Abdomen Pelvis w Cont [CT] Stat 08/27/20 01:58 COVID-19/FLU A+B/RSV [MOLEC] Stat 08/27/20 01:59 Isolation [COMM] Stat 08/27/20 02:12 URINALYSIS W/MICROSCOPIC [UA W/MICROSCOPIC] [URIN] Stat - Assessment/Plan Last 24 Hours: My Active Orders 08/26/20 Dinner Nothing per Oral Now Diet [DIET] 08/26/20 23:19 Ondansetron [Zofran] 4 mg IVPUSH Q6H PRN Sodium Chloride 0.9% [Saline Flush] 10 ml FLUSH ASDIRECTED PRN Peripheral IV Insertion Adult [OM.PC] Urgent 08/26/20 23:21 Peripheral IV Care [RC] . DIRECTED 08/26/20 23:30 Sodium Chloride 0.9% [Normal Saline] 1,000 ml IV ASDIRECTED 08/27/20 00:01 Abdomen Pelvis w Cont [CT] Stat 08/27/20 01:58 COVID-19/FLU A+B/RSV [MOLEC] Stat 08/27/20 01:59 Isolation [COMM] Stat 08/27/20 02:12 URINALYSIS W/MICROSCOPIC [UA W/MICROSCOPIC] [URIN] Stat
[2020-08-26] MEDS ORDERED: Sodium Chloride 0.9% 10 ML Syringe FLUSH PRN (23:19)
[2020-08-26] MEDS ORDERED: Ondansetron 4 MG/2 ML SDV IVPUSH PRN (23:19)
[2020-08-26] MEDS ORDERED: Famotidine 20 MG/2 ML SDV IVPUSH ONE (23:21)
[2020-08-26] MEDS ORDERED: Sodium Chloride 0.9% 1,000 ML IV SCH (23:30)
[2020-08-26] MEDS ORDERED: Iopamidol 612 MG/ML 50 ML SDV PO ONE (23:54)
[2020-08-27] MEDS ORDERED: Iopamidol 612 MG/ML 150 ML Bottle IV STA (01:23)
[2020-08-27 02:13] VITALS: BP 162/77; PULSE 51
--- NOTE | 2020-08-27 02:38 | CRLCT ---
INDICATION: Recent surgery 07/27/2020 for hernia. Abdominal pain with nausea and vomiting. COMPARISON: CT of the abdomen and pelvis from 07/30/2016. TECHNIQUE: CT examination of the abdomen and pelvis was performed with the uneventful intravenous administration of 100 cc of Isovue-300 while 3 mm thick axial sections were obtained from the lung bases through the pubic symphysis. Oral contrast was not administered. Please note that all CT scans at this facility use dose modulation, iterative reconstruction, and/or weight-based dosing when appropriate to reduce radiation dose to as low as reasonably achievable. FINDINGS: During the interval, there has been mesh hernia repair in the midline of the anterior abdominal and pelvic sam. There is no sign of recurrence of a hernia. There is a fluid collection located anterior to the mesh consistent with an abscess measuring 8.1 x 1.2 centimeters in diameter and 24.7 centimeters in length, extending from the xiphoid process to the infraumbilical region. This could be either postoperative abscess or seroma, with no bubbles of gas are present to suggest gas-forming organisms. In the abdomen, the liver is again seen to have a bilobed cyst in the inferior aspect of the lateral segment of the left lobe of the liver, segment 3, measuring 2.1 centimeters in diameter. Again seen is a small cyst in segment 8 of the liver adjacent to the right hepatic vein. Multiple small cysts are again seen in the dome of the right lobe of the liver, in segment 7. There is no sign of any solid hepatic mass The spleen, pancreas, and adrenals are normal in appearance. Again seen are multiple parapelvic cysts in the left kidney along with a cortical cyst in the lower pole of the left kidney which is increased in size, now measuring 2.2 centimeters, previously 1.3 centimeters. There is new mild right hydronephrosis with moderate dilatation of the extrarenal pelvis, consistent with UPJ stenosis. There is no dilatation of the right ureter. There are a few small cortical cysts now seen the right kidney, increased in size compared to the previous study. There is no sign of any renal calculi on either side. There is no sign of any ureteral calculi. The moderately distended gallbladder is normal in appearance. There is new moderate dilatation of the common bile duct extending through the pancreatic head, measuring 9 millimeters in diameter. There is no sign of distal obstructing mass or choledocholithiasis. Recommend correlation with patient`s LFTs. The previously seen Ricky-Corona drain located in the right upper quadrant of the abdomen has been removed. The abdominal aorta is normal in caliber with no sign of dilatation. There is no sign of retroperitoneal mass or adenopathy. Again seen are several lines of surgical jarret from small bowel anastomosis in the left upper quadrant, with no sign of any structure. Again seen are changes of subtotal colectomy with a widely patent ileal rectal anastomosis in the right upper pelvis. The stomach, the rest of the loops of small bowel, and colon in the abdomen are normal in appearance. The loops of small bowel in the pelvis are normal in appearance. The rectum is normal in appearance. The prostate has increased in size and is now mildly enlarged but is otherwise normal in appearance. The urinary bladder is normal in appearance. There is no sign of pelvic or inguinal mass or adenopathy. There is no sign of free air or free fluid in the abdomen or pelvis. The lung bases are clear. There is progressive L5-S1 disc degenerative disease, remaining severe. IMPRESSION: Slim fluid collection located along the entire mesh hernia repair of the midline anterior abdominal and upper pelvic wall, extending from the xiphoid process through the infraumbilical region. This could be either a postoperative seroma or abscess. No bubbles of gas seen to suggest an abscess. No sign of any recurrence of hernia. Again seen are changes of subtotal colectomy with widely patent ileorectal anastomosis. CT of the abdomen shows new mild dilatation of the common bile duct, cannot exclude distal common bile duct obstruction. Recommend correlation with patient`s LFTs. New mild right hydronephrosis and moderate dilatation of the right renal pelvis from UPJ stenosis. Again seen are several cysts in the liver and multiple left parapelvic cysts of no clinical concern. CT of the pelvis shows new mild enlargement of the prostate. Please note that all CT scans at this facility use dose modulation, iterative reconstruction, and/or weight-based dosing when appropriate to reduce radiation dose to as low as reasonably achievable. Dictated by Rodrigo Coughlin MD @ Aug 27 2020 2:22AM Signed by Dr. Rodrigo Coughlin @ Aug 27 2020 2:37AM
[2020-08-27 02:42] LABS: CORONAVIRUS COVID-19 NAA NEGATIVE (NEGATIVE)
== END 2020-08-27 03:30 ==
LOC: JP.ED 20:49
DX: G89.18 Other acute postprocedural pain (principal); R10.84 Generalized abdominal pain; E80.6 Other disorders of bilirubin metabolism; R79.89 Other specified abnormal findings of blood chemistry; E66.9 Obesity, unspecified; Z68.33 Body mass index [BMI] 33.0-33.9, adult; I10 Essential (primary) hypertension; I25.10 Atherosclerotic heart disease of native coronary artery without angina pectoris; Z88.0 Allergy status to penicillin; Z79.899 Other long term (current) drug therapy; Z95.5 Presence of coronary angioplasty implant and graft; Z20.822 Contact with and (suspected) exposure to COVID-19
CPT/HCPCS: 0241U; 36415; 74177; 80053; 81001; 82150; 83690; 85025; 96374; 99284; 99285; J3490; J7030; Q9967

== ENCOUNTER 2022-11-05 11:56 | Emergency (ER) | payer MEDICARE ==
[2022-11-05] MEDS ORDERED: Aspirin 81 MG Tab.Chew PO ONE (12:13)
[2022-11-05] MEDS ORDERED: Sodium Chloride 0.9% 10 ML Syringe FLUSH PRN (12:13)
[2022-11-05 12:29] LABS: BASOPHILS ABSOLUTE AUTO 0.06 K/uL (0.00-0.10); BASOPHILS PERCENT AUTO 0.7 % (0.1-1.3); EOSINOPHILS ABSOLUTE AUTO 0.18 K/uL (0.00-0.40); EOSINOPHILS PERCENT AUTO 2.2 % (0.0-5.4); HEMATOCRIT 48.3 % (38.4-49.7); HEMOGLOBIN 16.6 g/dL (12.9-16.9); IMMATURE GRAN PERCENT AUTO 0.2 % (0.0-0.7); LYMPHOCYTES ABSOLUTE AUTO 2.69 K/uL (0.8-3.3); LYMPHOCYTES PERCENT AUTO 33.2 % (11.4-47.7); MEAN CORPUSCULAR HGB CONC 34.4 g/dL (31.6-35.5); MEAN CORPUSCULAR VOLUME 87.2 fL (81.4-99.0); MONOCYTES ABSOLUTE AUTO 0.79 K/uL (0.20-0.90); MONOCYTES PERCENT AUTO 9.8 % (3.3-12.6); NEUTROPHILS ABSOLUTE AUTO 4.36 K/uL (1.0-7.6); NEUTROPHILS PERCENT AUTO 53.9 % (40.0-78.1); PLATELET COUNT,PLT 205 K/uL (130-375); RED BLOOD CELL COUNT 5.54 M/uL (4.14-5.76); WHITE BLOOD CELL COUNT,WBC 8.1 K/uL (3.2-11.0)
[2022-11-05 12:32] LABS: IMMATURE GRAN ABSOLUTE AUTO 0.02 K/uL (0.00-0.23)
[2022-11-05 12:51] LABS: A/G RATIO 0.8 (1.2-2.2); ALANINE AMINOTRANSFERASE,ALT 75 U/L (12-78); ALBUMIN 3.2 g/dL (3.4-5.0); ALKALINE PHOSPHATASE 71 U/L (46-116); ASPARTATE AMNIOTRANSFERASE,AST 51 U/L (15-37); BILIRUBIN TOTAL 0.7 mg/dL (0.2-1.0); BLOOD UREA NITROGEN,BUN 12 mg/dL (7-18); CALCIUM 8.8 mg/dL (8.5-10.1); CARBON DIOXIDE,CO2 25 mmol/L (21-32); CHLORIDE,CL 103 mmol/L (100-108); CREATININE 1.4 mg/dL (0.8-1.3); EST CRCL DRUG DOSING (CG) 50.69 mL/min; ESTIMATED GFR 54 mL/min (>60); GLUCOSE RANDOM 93 mg/dL (74-106); POTASSIUM,K 4.3 mmol/L (3.6-5.2); PROTEIN TOTAL,TP 7.1 g/dL (6.4-8.2); SODIUM,NA 138 mmol/L (140-148); TROPONIN I HIGH SENSITIVITY 9.8 pg/mL (<=60.3)
[2022-11-05 12:53] LABS: ANION GAP 14.3 mmol/L (5.0-14.0)
[2022-11-05 13:43] VITALS: BP 125/68; PULSE 64
== END 2022-11-05 14:05 | disposition home or self-care (01) ==
LOC: JP.ED 11:56
DX: R07.2 Precordial pain (principal); I25.10 Atherosclerotic heart disease of native coronary artery without angina pectoris; E78.00 Pure hypercholesterolemia, unspecified; I10 Essential (primary) hypertension; E66.9 Obesity, unspecified; Z68.35 Body mass index [BMI] 35.0-35.9, adult; Z88.0 Allergy status to penicillin; Z79.899 Other long term (current) drug therapy
CPT/HCPCS: 36415; 71045; 80053; 83735; 84484; 85025; 85379; 93005; 99285; A9270

== ENCOUNTER 2023-02-05 10:25 | Emergency (ER) | payer MEDICARE ==
[2023-02-05 10:44] VITALS: BP 166/87; PULSE 76
[2023-02-05] MEDS ORDERED: Sodium Chloride 0.9% 10 ML Syringe FLUSH PRN (10:56)
[2023-02-05 11:07] LABS: BASE EXCESS VENOUS 1.2 mm/L; BASOPHILS ABSOLUTE AUTO 0.04 K/uL (0.00-0.10); BASOPHILS PERCENT AUTO 0.5 % (0.1-1.3); BICARBONATE,VENOUS 25.7 mmol/L; CARBOXYHEMOGLOBIN 1.7 % (0.0-1.6); EOSINOPHILS ABSOLUTE AUTO 0.12 K/uL (0.00-0.40); EOSINOPHILS PERCENT AUTO 1.6 % (0.0-5.4); HEMATOCRIT 48.8 % (38.4-49.7); HEMOGLOBIN 16.7 g/dL (12.9-16.9); IMMATURE GRAN ABSOLUTE AUTO 0.03 K/uL (0.00-0.23); IMMATURE GRAN PERCENT AUTO 0.4 % (0.0-0.7); LYMPHOCYTES ABSOLUTE AUTO 1.89 K/uL (0.8-3.3); LYMPHOCYTES PERCENT AUTO 25.9 % (11.4-47.7); MEAN CORPUSCULAR HEMOGLOBIN 30.2 pg (31.6-35.5); MEAN CORPUSCULAR HGB CONC 34.2 g/dL (31.6-35.5); MEAN CORPUSCULAR VOLUME 88.2 fL (81.4-99.0); METHEMOGLOBIN 1.2 %; MONOCYTES ABSOLUTE AUTO 0.79 K/uL (0.20-0.90); MONOCYTES PERCENT AUTO 10.8 % (3.3-12.6); NEUTROPHILS ABSOLUTE AUTO 4.43 K/uL (1.0-7.6); NEUTROPHILS PERCENT AUTO 60.8 % (40.0-78.1); O2 SATURATION VENOUS 63.2; OXYHEMOGLOBIN 61.4 %; PCO2 VENOUS 42.2 mm/Hg; PH,VENOUS 7.402 (7.350-7.450); PLATELET COUNT,PLT 181 K/uL (130-375); RED BLOOD CELL COUNT 5.53 M/uL (4.14-5.76); TOTAL HEMOGLOBIN 17.3 g/dL (13.5-18.0); WHITE BLOOD CELL COUNT,WBC 7.3 K/uL (3.2-11.0)
[2023-02-05 11:16] LABS: PO2 VENOUS 35.9 mm/Hg
[2023-02-05 11:38] LABS: A/G RATIO 0.9 (1.2-2.2); ALANINE AMINOTRANSFERASE,ALT 73 U/L (12-78); ALBUMIN 3.3 g/dL (3.4-5.0); ALKALINE PHOSPHATASE 65 U/L (46-116); ANION GAP 13.4 mmol/L (5.0-14.0); ASPARTATE AMNIOTRANSFERASE,AST 49 U/L (15-37); BILIRUBIN TOTAL 0.7 mg/dL (0.2-1.0); BLOOD UREA NITROGEN,BUN 14 mg/dL (7-18); CALCIUM 8.3 mg/dL (8.5-10.1); CARBON DIOXIDE,CO2 25 mmol/L (21-32); CHLORIDE,CL 102 mmol/L (100-108); CREATININE 1.3 mg/dL (0.8-1.3); EST CRCL DRUG DOSING (CG) 54.59 mL/min; ESTIMATED GFR 59 mL/min (>60); GLUCOSE RANDOM 98 mg/dL (74-106); POTASSIUM,K 4.4 mmol/L (3.6-5.2); PROTEIN TOTAL,TP 6.9 g/dL (6.4-8.2); SODIUM,NA 136 mmol/L (140-148); TSH ULTRASENSITIVE 2.847 uIU/mL (0.358-3.740)
[2023-02-05] MEDS ORDERED: Sodium Chloride 0.9% 500 ML IV ONE (12:18)
[2023-02-05 12:55] LABS: APPEARANCE,URINE CLEAR (CLEAR); BILIRUBIN,URINE NEGATIVE (NEGATIVE); COLOR,URINE YELLOW (YELLOW); GLUCOSE,URINE NEGATIVE (NEGATIVE); KETONES,URINE NEGATIVE (NEGATIVE); LEUKOCYTE ESTERASE,URINE NEGATIVE (NEGATIVE); NITRITE,URINE NEGATIVE (NEGATIVE); OCCULT BLOOD,URINE NEGATIVE (NEGATIVE); PH,URINE 5.5 (5.0-8.0); PROTEIN,URINE 30 mg/dL (NEGATIVE); UROBILINOGEN,URINE 0.2 EU/dL (0.2-1.0)
[2023-02-05 13:07] LABS: AMORPHOUS SEDIMENT,URINE NOT SEEN; BACTERIA,URINE NOT SEEN; EPITHELIAL CELLS,URINE NOT SEEN; MUCUS,URINE FEW; RBC,URINE 0-5 (0-5); WBC,URINE NOT SEEN (0-5)
== END 2023-02-05 13:40 | disposition home or self-care (01) ==
LOC: JP.ED 10:25
DX: R41.0 Disorientation, unspecified (principal); E86.0 Dehydration; R53.1 Weakness; I25.10 Atherosclerotic heart disease of native coronary artery without angina pectoris; E78.00 Pure hypercholesterolemia, unspecified; I10 Essential (primary) hypertension; E66.9 Obesity, unspecified; Z95.5 Presence of coronary angioplasty implant and graft; Z20.822 Contact with and (suspected) exposure to COVID-19; Z79.899 Other long term (current) drug therapy; Z88.0 Allergy status to penicillin
CPT/HCPCS: 36415; 80053; 80307; 81001; 82140; 82803; 83735; 84443; 84484; 85025; 93005; 99285; J7040; U0002; 93010; 99283

== ENCOUNTER 2023-12-31 01:55 | Emergency (ER) | payer MEDICARE ==
[2023-12-31] MEDS ORDERED: Nitroglycerin 0.4 MG Tab.SL SL PRN (02:22)
[2023-12-31 02:32] LABS: BASOPHILS ABSOLUTE AUTO 0.05 K/uL (0.00-0.10); BASOPHILS PERCENT AUTO 0.7 % (0.1-1.3); EOSINOPHILS ABSOLUTE AUTO 0.25 K/uL (0.00-0.40); EOSINOPHILS PERCENT AUTO 3.3 % (0.0-5.4); HEMATOCRIT 45.9 % (38.4-49.7); HEMOGLOBIN 16.1 g/dL (12.9-16.9); IMMATURE GRAN PERCENT AUTO 0.1 % (0.0-0.7); LYMPHOCYTES ABSOLUTE AUTO 2.49 K/uL (0.8-3.3); LYMPHOCYTES PERCENT AUTO 32.7 % (11.4-47.7); MEAN CORPUSCULAR HEMOGLOBIN 30.7 pg (31.6-35.5); MEAN CORPUSCULAR HGB CONC 35.1 g/dL (31.6-35.5); MEAN CORPUSCULAR VOLUME 87.4 fL (81.4-99.0); MONOCYTES ABSOLUTE AUTO 0.87 K/uL (0.20-0.90); MONOCYTES PERCENT AUTO 11.4 % (3.3-12.6); NEUTROPHILS ABSOLUTE AUTO 3.95 K/uL (1.0-7.6); NEUTROPHILS PERCENT AUTO 51.8 % (40.0-78.1); PLATELET COUNT,PLT 169 K/uL (130-375); RED BLOOD CELL COUNT 5.25 M/uL (4.14-5.76); WHITE BLOOD CELL COUNT,WBC 7.6 K/uL (3.2-11.0)
[2023-12-31 02:36] LABS: IMMATURE GRAN ABSOLUTE AUTO 0.01 K/uL (0.00-0.23)
[2023-12-31 02:51] LABS: A/G RATIO 0.8 (1.2-2.2); ALANINE AMINOTRANSFERASE,ALT 74 U/L (12-78); ALKALINE PHOSPHATASE 92 U/L (46-116); ANION GAP 8.6 mmol/L (5.0-14.0); ASPARTATE AMNIOTRANSFERASE,AST 54 U/L (15-37); BILIRUBIN TOTAL 0.6 mg/dL (0.2-1.0); BLOOD UREA NITROGEN,BUN 9 mg/dL (7-18); CALCIUM 8.3 mg/dL (8.5-10.1); CARBON DIOXIDE,CO2 26 mmol/L (21-32); CHLORIDE,CL 105 mmol/L (100-108); CREATININE 1.4 mg/dL (0.8-1.3); EST CRCL DRUG DOSING (CG) 49.97 mL/min; ESTIMATED GFR 54 mL/min (>60); GLUCOSE RANDOM 133 mg/dL (74-106); POTASSIUM,K 3.8 mmol/L (3.6-5.2); PROTEIN TOTAL,TP 6.9 g/dL (6.4-8.2); SODIUM,NA 140 mmol/L (140-148); TROPONIN I HIGH SENSITIVITY 12.3 pg/mL (<=60.3)
[2023-12-31] MEDS: Aspirin 81 MG Tab.Chew PO ONE (03:06)
[2023-12-31] MEDS: Aspirin 81 MG Tab.Chew PO STA (03:09)
[2023-12-31 06:54] VITALS: BP 135/73; PULSE 68
== END 2023-12-31 06:50 | disposition home or self-care (01) ==
LOC: JP.ED 01:55
DX: R07.9 Chest pain, unspecified (principal); I10 Essential (primary) hypertension; E66.9 Obesity, unspecified; Z88.0 Allergy status to penicillin; Z79.899 Other long term (current) drug therapy; Z68.35 Body mass index [BMI] 35.0-35.9, adult
CPT/HCPCS: 36415; 71045; 80053; 84484; 85025; 99285; A9270